=== PATIENT | female | born 1970 | race Caucasian/White ===

== ENCOUNTER 2017-12-14 17:10 | Emergency (ER) | payer MEDICAID, SELFPAY ==
[2017-12-14 17:28] VITALS: BP 140/108; PULSE 116; RESP 18; TEMP 36.6; O2SAT 95; BMI 28.3
[2017-12-14 17:44] VITALS: BP 140/108; PULSE 118; RESP 18; TEMP 36.6; O2SAT 95; BMI 25.0
--- NOTE | 2017-12-14 17:54 | HMH.EDUTC ---
[facility] [place] Clinical Impression: Pneumonia Qualifiers: Pneumonia type: due to unspecified organism Laterality: bilateral Lung location: unspecified part of lung Qualified Code(s): J18.9 - Pneumonia, unspecified organism Disposition: Home, Self-Care Condition on Discharge: Good Prescriptions: methylPREDNISolone [Medrol] 4 mg PO DAILY 6 Days #21 tab.ds.pk Albuterol Sulfate [Proventil-HFA 90mcg/puff Inh] 2 puffs IH QIDP PRN #1 inh PRN Reason: Wheezing Azithromycin [Z-Juventino 250mg Tab] 250 mg PO UD DOSE PK #6 tab Referrals: Arline Roberts [Primary Care Provider] - Time of Disposition: 19:00 Medical Decision Making - Medical Records Medical records reviewed: Yes: I reviewed the patient's medical records. Vital Signs: 12/14/17 17:28 12/14/17 17:44 Temperature 97.8 F 97.8 F Temperature Source Oral Temporal Artery Scan Pulse Rate [Left Brachial] 116 H 118 H Respiratory Rate 18 18 Blood Pressure [Left Arm] 140/108 140/108 Blood Pressure Mean [Left Arm] 118 118 Blood Pressure Source [Left Arm] Automatic Cuff Automatic Cuff Blood Pressure Position [Left Arm] Sitting Sitting 02 Sat by Pulse Oximetry 95 95 Oxygen Delivery Method Room Air Room Air - Lab Data Lab results reviewed: Yes: I reviewed the patient's lab results. Lab Results 12/14/17 17:56: Influenza Type A Ag Negative, Influenza Type B Ag Negative 12/14/17 18:09: Urine Color Yellow, Urine Appearance Clear, Urine pH 6.0, Ur Specific [place] 1.020, Urine Protein 2+, Urine Glucose (UA) Negative, Urine Ketones Trace, Urine Blood Negative, Urine Nitrate Negative, Urine Bilirubin Negative, Urine Urobilinogen 0.2, Ur Leukocyte Esterase Negative Orders (Tests/Meds): ED MEDICATIONS Discontinued Medications Generic Name Dose Route Start Last Admin Trade Name Freq PRN Reason Stop Dose Admin Ceftriaxone Sodium 1 gm 12/14/17 18:33 12/14/17 18:50 Rocephin 1gm Vial IM 12/14/17 18:34 1 gm ONCE ONE Administration Lidocaine HCl 0 ml 12/14/17 18:33 12/14/17 18:50 Lidocaine 1% 10ml Mdv IM 12/14/17 18:34 2.1 ml ONCE ONE Administration Methylprednisolone Acetate 80 mg 12/14/17 18:33 12/14/17 18:51 Depo-Medrol 80mg/Ml Vial IM 12/14/17 18:34 80 mg ONCE ONE Administration Promethazine HCl 25 mg 12/14/17 18:33 12/14/17 18:51 Phenergan 25mg/Ml 1ml Vial IM 12/14/17 18:34 25 mg ONCE ONE Administration Sodium Chloride 25 ml 12/14/17 18:33 Sod Chloride 0.9% 25ml Bag IV 12/14/17 18:34 ONCE ONE ORDERS Category Date Time Status CXR 2 view (NOT portable) [XR chest 2V] Stat Exams 12/14/17 18:08 Taken - Radiology Data #1 Image Reviewed: Yes I reviewed the patient's radiology image ? infiltrate bibasilar - Bruno Inquiry Pt receiving controlled substance: No [facility] [place] HPI - General Stated complaint: back pain,vomiting,weakness Time Seen by Provider: 12/14/17 17:45 Mode of Arrival: Ambulatory Source of Information: Patient Limitations: No Limitations Description of Symptoms (Recalled from Triage Doc. by RN): N/V SINCE SUN, DX WITH BRONCHITIS ON SUNDAY, BODYACHES ABD BACK PAIN FROM COUGHING. FEELS LIKE THE FLU HEENT Symptoms (Recalled from RN notes): Yes Resp Symptoms (Recalled from RN notes): Yes Skin Symptoms (Recalled from RN notes): No MS Symptoms (Recalled from RN notes): No Functional Status (Recalled from RN notes): NA - History of Present Illness Provider Complaint: Patient seen by PCP on 12/12/17 for cough. Given doxycycline and Tessalon Perles. Has also had vomiting. Seen at [facility] ER yesterday. Given Phenerghan. Still coughing, feels awful, has dry heaves. No diarrhea. Denies ear pain or sore throat. Back hurts from coughing and can't get comfortable. Not sure about fever. Onset (ago): day(s) (2) Location: chest, back, abdomen Radiation: back Relieving factors: none Exacerbating factors: none Associated symptoms: cough, fever/chills, malaise, nausea/vomiting Treat
--- NOTE | 2017-12-14 17:59 | ED_ITS ---
[facility] [place] Clinical Impression: Pneumonia Qualifiers: Pneumonia type: due to unspecified organism Laterality: bilateral Lung location : unspecified part of lung Qualified Code(s): J18.9 - Pneumonia, unspecified organism Disposition: Home, Self-Care Condition on Discharge: Good Prescriptions: methylPREDNISolone [Medrol] 4 mg PO DAILY 6 Days #21 tab.ds.pk Albuterol Sulfate [Proventil-HFA 90mcg/puff Inh] 2 puffs IH QIDP PRN #1 inh PRN Reason: Wheezing Azithromycin [Z-Juventino 250mg Tab] 250 mg PO UD DOSE PK #6 tab Referrals: Arline Roberts [Primary Care Provider] - Time of Disposition: 19:00 Medical Decision Making - Medical Records Medical records reviewed: Yes: I reviewed the patient's medical records. Vital Signs: 12/14/17 17:28 12/14/17 17:44 Temperature 97.8 F 97.8 F Temperature Source Oral Temporal Artery Scan Pulse Rate [Left Brachial] 116 H 118 H Respiratory Rate 18 18 Blood Pressure [Left Arm] 140/108 140/108 Blood Pressure Mean [Left Arm] 118 118 Blood Pressure Source [Left Arm] Automatic Cuff Automatic Cuff Blood Pressure Position [Left Arm] Sitting Sitting 02 Sat by Pulse Oximetry 95 95 Oxygen Delivery Method Room Air Room Air - Lab Data Lab results reviewed: Yes: I reviewed the patient's lab results. Lab Results 12/14/17 17:56: Influenza Type A Ag Negative, Influenza Type B Ag Negative 12/14/17 18:09: Urine Color Yellow, Urine Appearance Clear, Urine pH 6.0, Ur Specific [place] 1.020, Urine Protein 2+, Urine Glucose (UA) Negative, Urine Ketones Trace, Urine Blood Negative, Urine Nitrate Negative, Urine Bilirubin Negative, Urine Urobilinogen 0.2, Ur Leukocyte Esterase Negative Orders (Tests/Meds): ED MEDICATIONS Discontinued Medications Generic Name Dose Route Start Last Admin Trade Name Freq PRN Reason Stop Dose Admin Ceftriaxone Sodium 1 gm 12/14/17 18:33 12/14/17 18:50 Rocephin 1gm Vial IM 12/14/17 18:34 1 gm ONCE ONE Administration Lidocaine HCl 0 ml 12/14/17 18:33 12/14/17 18:50 Lidocaine 1% 10ml Mdv IM 12/14/17 18:34 2.1 ml ONCE ONE Administration Methylprednisolone Acetate 80 mg 12/14/17 18:33 12/14/17 18:51 Depo-Medrol 80mg/Ml Vial IM 12/14/17 18:34 80 mg ONCE ONE Administration Promethazine HCl 25 mg 12/14/17 18:33 12/14/17 18:51 Phenergan 25mg/Ml 1ml Vial IM 12/14/17 18:34 25 mg ONCE ONE Administration Sodium Chloride 25 ml 12/14/17 18:33 Sod Chloride 0.9% 25ml Bag IV 12/14/17 18:34 ONCE ONE ORDERS Category Date Time Status CXR 2 view (NOT portable) [XR chest 2V] Stat Exams 12/14/17 18:08 Taken - Radiology Data #1 Image Reviewed: Yes I reviewed the patient's radiology image ? infiltrate bibasilar - Bruno Inquiry Pt receiving controlled substance: No [facility] [place] - General Stated complaint: back pain,vomiting,weakness Time Seen by Provider: 12/14/17 17:45 Mode of Arrival: Ambulatory Source of Information: Patient Limitations: No Limitations Description of Symptoms (Recalled from Triage Doc. by RN): N/V SINCE SUN, DX WITH BRONCHITIS ON SUNDAY, BODYACHES ABD BACK PAIN FROM COUGHING. FEELS LIKE THE FLU HEENT Symptoms (Recalled from RN notes): Yes Resp Symptoms (Recalled from RN notes): Yes Skin Symptoms (Recalled f
[2017-12-14 18:06] LABS: UTC Influenza A Antigen Negative (Negative); UTC Influenza B Antigen Negative (Negative)
--- NOTE | 2017-12-14 18:08 | XR_ITS ---
XR chest 2V HISTORY: Tobacco use, smoker, vomiting ITS.REASON: SICK ORDERING PHYSICIAN: MARJORIE Aragon PATIENT AGE: 47 years COMPARISON: None available FINDINGS: The cardiomediastinal silhouette and pulmonary vascularity are within normal limits. There are atelectatic or fibrotic changes in the left lung base. There is mild coarsening of the bronchovascular markings which may be related to smoking-related lung disease. Calcified granuloma is present in the left lower lobe. No acute bony abnormalities. IMPRESSION: Left lower lobe atelectasis or fibrosis with coarsening of the bronchovascular markings
[2017-12-14 18:40] LABS: Apearance,Urine Clear (Clear); Color,Urine Yellow (Yellow)
[2017-12-14 18:41] LABS: Bilirubin,Urine Negative (Negative); Blood, Urine Negative (Negative); Glucose,Urine (UA) Negative (Negative); Ketones,Urine TRACE (Negative); Protein,Urine 2+ (Negative)
[2017-12-14 18:42] LABS: UTC Leukocyte Esterase,Urine Negative (Negative); UTC Nitrate,Urine Negative (Negative); Urobilinogen,Urine 0.2 EU/dl (0.2)
== END 2017-12-14 19:01 | disposition home or self-care (01) ==
LOC: ER 17:40 → UTC 17:41
PROVIDERS: Emergency Provider Physician Assistant; PCP Physician Assistant
DX: J18.9 Pneumonia, unspecified organism (principal); Z79.899 Other long term (current) drug therapy
CPT/HCPCS: 71046; 81003; 87804; 96372; 99202; J1040

== ENCOUNTER → 2018-12-03 11:46 | Outpatient (CLI) | payer MEDICAID, SELFPAY ==
[2018-12-03 11:51] LABS: Adenovirus,PCR Not Detected (NotDetected); Bordetella Pertussis Not Detected (NotDetected); Chlamydophila Pneumoniae, PCR Not Detected (NotDetected); Coronavirus 229E Not Detected (NotDetected); Coronavirus NL63 Not Detected (NotDetected); Coronavirus OC43 Not Detected (NotDetected); Coronovirus HKU1,PCR Not Detected (NotDetected); Human Metapneumovirus Not Detected (NotDetected); Influenza A, PCR Not Detected (NotDetected); Influenza AH1, 2009 Not Detected (NotDetected); Influenza AH1, PCR Not Detected (NotDetected); Influenza AH3,PCR Not Detected (NotDetected); Influenza B, PCR Not Detected (NotDetected); Mycoplasma Pneumoniae, PCR Not Detected (NotDetected); Parainfluenza 1, PCR Not Detected (NotDetected); Parainfluenza 2, PCR Not Detected (NotDetected); Parainfluenza 3, PCR Not Detected (NotDetected); Parainfluenza 4, PCR Not Detected (NotDetected); Respiratory Syncytial Virus Not Detected (NotDetected); Rhinovirus/Enterovirus Not Detected (NotDetected)
== END ==
PROVIDERS: PCP Nurse Practitioner Family; Visit Provider Nurse Practitioner Family
DX: R53.81 Other malaise (principal); R52 Pain, unspecified
CPT/HCPCS: 87486; 87581; 87633; 87798

== ENCOUNTER 2019-01-13 15:00 | Outpatient (RCR) | payer MEDICAID, SELFPAY | END 2019-01-20 15:29 | disposition home or self-care (01) | LOC: PT.CARL 15:00 | PROVIDERS: Visit Provider Physician Assistant | DX: M54.5 Low back pain (principal) | CPT/HCPCS: 97010; 97014; 97110; 97140; 97163; G0283 ==

== ENCOUNTER 2020-10-04 09:48 | Emergency (ER) | payer MEDICAID, SELFPAY ==
[2020-10-04 10:15] VITALS: BP 114/58; PULSE 85; RESP 16; TEMP 36.8; O2SAT 94; BMI 31.7
--- NOTE | 2020-10-04 10:22 | XR_ITS ---
PROCEDURE: XR CHEST 2V CLINICAL HISTORY: SHORT OF BREATH COMPARISON: CR CXR2V XR chest 2V from 12/14/2017 FINDINGS: The cardiomediastinal silhouette and pulmonary vascularity are within normal limits. The lungs are clear without infiltrates, suspicious nodules, or pleural effusions. There is a calcified granuloma in the left lower lobe. IMPRESSION: No acute findings. Dictated by: Albert Higgins MD 10/04/2020 11:23 Albert Higgins MD in [place] 10/04/2020 11:23
--- NOTE | 2020-10-04 10:42 | HMH.EDUTC ---
[facility] [place] Impression: Sinusitis Qualifiers: Sinusitis location: unspecified location Chronicity: unspecified Qualified Code(s): J32.9 - Chronic sinusitis, unspecified Disposition: Home, Self-Care Condition on Discharge: Good Instructions: Sinusitis, Sinus Headache, Diarrhea, DI for Sinusitis Additional Instructions: *Monitor Temp, Over the counter Motrin or Tylenol as directed/as needed Tylenol every 4 hours and Motrin every 6 hours (as long as your family doctor has told you that you can take it) for fever or pain. and straight to ER if unable to lower temp less than 101.0 after medication given *Warm salt water gargles may help to soothe the throat *Throat Lozenges *Warm fluids like tea with honey may help to soothe the throat *Sleep elevated *Humidifier/Vaporizer *Take medication as prescribed Return if needed Follow up with Family Doctor if needed Straight to ER if any life threatening symptoms Follow up IMMEDIATELY for new or worsening symptoms or no Noticeable improvement over the next 48-72 hours. 911 for difficulty breathing or swallowing ? You was given an outpatient order for diarrhea panel, please collect specimen and bring back to outpatient lab then [facility] or follow up with family doctor for results ? Follow up with family doctor in the next 48-72 hours if no improvement or any worsening of symptoms You was tested for today for COVID19 your test result should be back later this evening, you may call back later this evening to see if your test results are back and the result [phone] You was given a handout with instructions for Self Quarantine and Self isolation for while you wait on test results and what to do if they are positive Prescriptions: Amoxicillin/Potassium Clav [Augmentin 875-125 Tablet] 1 tab PO Q12H 7 Days #14 tab Transmission Status: Received by [facility] Referrals: Shanice Acevedo APRN [Primary Care Provider] - As needed Time of Disposition: 12:21 Medical Decision Making - Bruno Inquiry Pt receiving controlled substance: No Bruno was queried for this patient: No Vital Signs: 10/04/20 10:15 10/04/20 12:26 Temperature 98.2 F 98.2 F Temperature Source Oral Pulse Rate 85 Pulse Rate [Right Brachial] 85 Respiratory Rate 16 16 Blood Pressure 114/58 L Blood Pressure [Right Arm] 114/58 L Blood Pressure Mean [Right Arm] 76 Blood Pressure Source [Right Arm] Automatic Cuff Blood Pressure Position [Right Arm] Sitting 02 Sat by Pulse Oximetry 94 L Oxygen Delivery Method Room Air - Lab Data Lab Results 10/04/20 10:54: WBC 11.4 H, RBC 4.75, Hgb 13.8, Hct 41.5, MCV 87.3, MCH 29.1, MCHC 33.4, RDW 13.5, Plt Count 210, MPV 7.8, Neut % (Auto) 69.5, Lymph % (Auto) 20.9, [place] % (Auto) 4.9, Eos % (Auto) 3.9, Baso % (Auto) 0.8, Neut # (Auto) 7.9 H, Lymph # (Auto) 2.4, [place] # (Auto) 0.6, Eos # (Auto) 0.5 H, Baso # (Auto) 0.1 10/04/20 12:02: Urine Color Yellow, Urine Appearance Clear, Urine pH 5.0, Ur Specific [place] <= 1.005, Urine Protein Negative, Urine Glucose (UA) Negative, Urine Ketones Negative, Urine Blood Negative, Urine Nitrate Negative, Urine Bilirubin Negative, Urine Urobilinogen 0.2, Ur Leukocyte Esterase Negative Result diagrams: 10/04/20 10:54 Orders (Tests/Meds): ED MEDICATIONS Discontinued Medications Generic Name Dose Route Start Last Admin Trade Name Freq PRN Reason Stop Dose Admin Sodium Chloride 1,000 mls @ 999 mls/hr 10/04/20 11:15 10/04/20 11:02 Sod Chlor 0.9% 1000ml Bag IV 10/04/20 12:15 999 mls/hr .Q1H1M [facility] Administration - Radiology Data #1 Image(s): Chest Image Reviewed: Yes I have reviewed radiologist's interpretation Preliminary Findings: Normal/NAD Medical Decision Narrative: Patient reports that she is feeling better after fluids, fluids still infusing will monitor No diarrhea since arrival, discussed lab work with patient and discussed transfer to the Ed for further evaluation
[2020-10-04 11:06] LABS: Basophils # 0.1 K/mm3 (0-0.2); Basophils % 0.8 % (0.1-2.0); Eosinophils # 0.5 K/mm3 (0.0-0.4); Eosinophils % 3.9 % (0.1-12.0); Hematocrit 41.5 % (37.0-47.0); Hemoglobin 13.8 g/dL (12.2-16.2); Lymphocytes # 2.4 K/mm3 (0.7-4.5); Lymphocytes % 20.9 % (10-50); Mean Corpuscular HGB Conc 33.4 g/dL (31.8-35.4); Mean Corpuscular Hemoglobin 29.1 pg (27.0-31.2); Mean Corpuscular Volume 87.3 fl (81-99); Mean Platelet Volume 7.8 fl (7.4-10.4); Monocytes # 0.6 K/mm3 (0.1-1.0); Monocytes % 4.9 % (1.7-9.3); Neutrophils # 7.9 K/mm3 (1.8-7.8); Neutrophils % 69.5 % (37.0-80.0); Platelet Count 210 K/mm3 (142-424); Red Blood Count 4.75 M/mm3 (4.20-5.40); Red Cell Distribution Width 13.5 % (11.5-17.5); White Blood Count 11.4 K/mm3 (4.8-10.8)
[2020-10-04 12:02] LABS: Apearance,Urine Clear (Clear); Color,Urine Yellow (Yellow)
[2020-10-04 12:03] LABS: Bilirubin,Urine Negative (Negative); Blood, Urine Negative (Negative); Glucose,Urine (UA) Negative (Negative); Ketones,Urine Negative (Negative); Protein,Urine Negative (Negative); Specific Gravity, Urine <= 1.005 (1.005-1.030); UTC Leukocyte Esterase,Urine Negative (Negative); UTC Nitrate,Urine Negative (Negative); Urobilinogen,Urine 0.2 EU/dl (0.2)
[2020-10-04 12:26] VITALS: BP 114/58; PULSE 85; RESP 16; TEMP 36.8; O2SAT 98
== END 2020-10-04 12:31 | disposition home or self-care (01) ==
LOC: UTC 09:53
PROVIDERS: Emergency Provider Nurse Practitioner; PCP Nurse Practitioner Family
DX: Z20.828 Contact with and (suspected) exposure to other viral communicable diseases (principal); J32.9 Chronic sinusitis, unspecified
CPT/HCPCS: 71046; 81003; 85025; 96365; 99203; U0003

== ENCOUNTER → 2020-12-09 10:54 | Outpatient (POV) | payer MEDICAID, SELFPAY ==
[2020-12-09 11:29] VITALS: BP 142/78; PULSE 74; RESP 18; TEMP 36.6; O2SAT 98; BMI 33.2
--- NOTE | 2020-12-16 17:35 | HMH.PMCON ---
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 I do believe given her symptomology that this will benefit her. She has a positive Cheng test SI joint compression test Vel's test and distraction test bilaterally. I will follow-up with her after her injection reassess her symptoms at that time she has been instructed to call the office if she has any issues prior to her next appointment. Dr. Sethi has reviewed this note and agrees with this plan of care. This note was dictated using voice recognition software and may contain errors or omissions HPI - Data of Consult Consult date: 12/09/20 Requesting Physician: Tona Villegas APRN Primary Care Provider: Shanice Acevedo APRN - Consult Narrative Reason for consult: Back pain History of present illness: Ms. Rolon is a 50 year old female who presents today for consultation in regards to her low back pain. She is seeing pain management in the past and had epidurals with no success. Patient wants to talk about her options. Most of her pack pain is quite low. She does not have radiation into her bilateral lower feet. Patient is extremely tender over her SI joints. She has a positive Cheng test SI joint compression test Vel's test. She is tried physical therapy with no relief, she is tried and failed Lortab, gabapentin, trazodone, diclofenac. She is also failed epidural injections. At we discussed SI joint injection she would like to move forward with this to I do believe that this potentially could help her. If not I do believe we have other options that could benefit her. CC: Tona Villegas APRN [facility] History I have reviewed the patient's past medical history: Yes Medical History: Reports:: Hyperlipidemia, Hypertension Denies:: Cancer, Diabetes Mellitus Type 1, Diabetes Mellitus Type 2, MRSA *Have you ever received a pneumonia vaccine?: Yes *Have you received a flu vaccine this season?: Yes Other Medical History: Reports: Arthritis Amputation: No Fractures: No - *Social History Smoking Status: Current every day smoker Tobacco Type: cigarettes # Packs/Day (cigarettes): 1 Alcohol Intake: never *Occupational Status:: other Housing: house Household Members: other *Travel in the last 8 weeks: None Family Hx:: Unable to obtain Review of Systems - Review of Systems ROS General: no recent weight change, no fever, no sleep disturbances Respiratory: no cough, no shortness of air, no recurring pulmonary infections Cardiovascular/Peripheral Vascular: No chest pain, No palpitations, no edema, no shortness of breath. Gastrointestinal: no new onset incontinence, normal bowel movements reported Genitourinary: no new onset incontinence Musculoskeletal: Back pain, SI joint pain, hip pain Psychiatric: normal mood/ affect Neurological: [denies new onset weakness in extremities], [denies new onset balance issues] Meds Home Medications Medication Instructions Recorded Confirmed Type Amoxicillin/Potassium Clav 1 tab PO Q12H 7 Days #14 tab 10/04/20 Rx [Augmentin 875-125 Tablet] Atorvastatin Calcium [Lipitor 20mg 20 mg PO HS 10/04/20 10/04/20 History Tablet*] Diclofenac Sodium [Diclofenac 75mg 75 mg PO BID 10/04/20 10/04/20 History Tab] Famotidine [Acid Controller] 20 mg PO DAILY 10/04/20 10/04/20 History Montelukast Sodium [Singulair 10mg 10 mg PO PM 10/04/20 10/04/20 History tablet] PARoxetine HCL [Paxil] 40 mg PO BID 10/04/20 10/04/20 History Pantoprazole Sodium [Protonix 40mg 40 mg PO DAILY 10/04/20 10/04/20 History tablet] Scoobyti
== END ==
PROVIDERS: PCP Nurse Practitioner Family; Visit Provider Clinical Nurse Specialist Family Health
DX: M46.1 Sacroiliitis, not elsewhere classified (principal); M47.816 Spondylosis without myelopathy or radiculopathy, lumbar region
CPT/HCPCS: 99202; G0463

== ENCOUNTER → 2020-12-20 11:19 | Day surgery (SDC) | payer MEDICAID, SELFPAY ==
[2020-12-20 11:47] VITALS: BP 149/76; PULSE 95; RESP 18; TEMP 36.1; O2SAT 95; BMI 32.1
[2020-12-20 12:03] VITALS: PULSE 85; RESP 20; O2SAT 96
[2020-12-20 12:04] VITALS: BP 165/98; PULSE 85; RESP 20; O2SAT 96
--- NOTE | 2020-12-20 12:09 | HMH.PMPROC ---
- Procedure Date: 12/20/20 Time: 12:09 Anesthesiologist:: Tona Villegas APRN Complications:: None Pre-procedure Diagnosis:: Sacroiliitis Post-procedure Diagnosis:: Same Indications for Procedure:: Ms. Rolon is a 50 year old female who presents today for consultation in regards to her low back pain. She is seeing pain management in the past and had epidurals with no success. Most of her back pain is quite low. She does not have radiation into her bilateral lower feet. Patient is extremely tender over her SI joints. She has a positive Cheng test SI joint compression test Vel's test. She is tried physical therapy with no relief, she is tried and failed Lortab, gabapentin, trazodone, diclofenac. She is also failed epidural injections. At we discussed SI joint injection she would like to move forward with this today Procedure Details:: Informed consent was obtained and the risks and benefits of the procedure were explained to the patient. Patient was taken to the procedure room. Patient was placed prone on the procedure table. The left hip was prepped using ChloraPrep as a cleansing solution. The skin and subcutaneous tissues were anesthetized using lidocaine. Using fluoroscopic guidance I placed a 22-gauge spinal needle into the inferior aspect of the left SI joint. After this I injected 5 mL bupivacaine 0.25% and Depo-Medrol 40 mg into the left SI joint. This was then repeated on the right side. The patient tolerated the procedure well with no complication. Plan and Disposition:: I will see the patient back in several weeks reassess his symptoms at that time has been instructed to call the office if she has any issues prior to next appointment. Dr. Sethi has reviewed this note and agrees with this plan of care. This note was dictated using voice recognition software and may contain errors or omissions
== END ==
PROVIDERS: PCP Nurse Practitioner Family; Visit Provider Clinical Nurse Specialist Family Health
DX: M46.1 Sacroiliitis, not elsewhere classified (principal); Z88.2 Allergy status to sulfonamides; Z72.0 Tobacco use; E78.5 Hyperlipidemia, unspecified; K21.9 Gastro-esophageal reflux disease without esophagitis; F41.9 Anxiety disorder, unspecified; F32.9 Major depressive disorder, single episode, unspecified; E07.9 Disorder of thyroid, unspecified
CPT/HCPCS: 27096; G0260; J1030; Q9966

== ENCOUNTER → 2021-01-13 13:30 | Outpatient (POV) | payer MEDICAID, SELFPAY ==
--- NOTE | 2021-01-13 14:05 | HMH.PAINSOAP ---
[facility] Pain Management SOAP Note Subjective:: Patient is a pleasant 51-year-old white female who presents today for follow-up after SI joint injections. Patient did not get any relief from this. She is failed multiple injective therapies including epidural injections, facet joint injections. Patient is failed medication management including Lortab and gabapentin trazodone and diclofenac. She is had over 6 months of conservative therapy with no relief. Most of her pain is in her low back and bilateral lower extremities. We discussed both neurostimulator and intrathecal therapy. She rates her pain today a 6 out of 10. Patient and I discussed psychological evaluation she would like to proceed with this. She is not on any anticoagulation therapy. ROS General: no recent weight change, no fever, no sleep disturbances Respiratory: no cough, no shortness of air, no recurring pulmonary infections Cardiovascular/Peripheral Vascular: No chest pain, No palpitations, no edema, no shortness of breath. Gastrointestinal: no new onset incontinence, normal bowel movements reported Genitourinary: no new onset incontinence Musculoskeletal: Back pain, leg pain Psychiatric: normal mood/ affect Neurological: [denies new onset weakness in extremities], [denies new onset balance issues] Objective:: Physical Exam General: Alert and oriented x3, no acute distress, pleasant and cooperative, [on room air] Lungs: Resps E/U, Symmetrical chest expansion, Eyes: PERRL Musculoskeletal: Flexion and extension of lumbar spine somewhat guarded secondary to pain, deep tendon reflexes normal, strength in upper and lower extremities [5/5], antalgic gait noted Neurological: speech clear, tower helper equal, no gross sensory deficits Assessment:: Degenerative disc disease lumbar spine lumbar radiculopathy, sacroiliitis, back pain Plan:: The patient for psychological evaluation to determine if she is a candidate for intrathecal therapy or neuro stimulation. I will follow-up with her after her psychological evaluation. We will start her on gabapentin 300 mg 1 p.o. 4 times daily. I will follow-up with her after her psychological evaluation she has been instructed to call the office if she has any issues prior to her next appointment. Her Bruno was reviewed through [employer]. Dr. Sethi has reviewed this note and agrees with this plan of care. This note was dictated using voice recognition software and may contain errors or omissions [facility] History I have reviewed the patient's past medical history: Yes Medical History: Reports:: Hyperlipidemia, Hypertension Denies:: Cancer, Diabetes Mellitus Type 1, Diabetes Mellitus Type 2, MRSA, Seizures *Have you ever received a pneumonia vaccine?: No *Have you received a flu vaccine this season?: No Other Medical History: Reports: Arthritis, Thyroid Disease Other Surgeries: Yes: Hysterectomy-Total, Sinus Surgery, ThyroidectomyComment Only: Other (cone biopsy) Amputation: No Fractures: No - *Social History Smoking Status: Current every day smoker Tobacco Type: cigarettes # Packs/Day (cigarettes): 1 Alcohol Intake: never *Occupational Status:: other Housing: house Household Members: other *Travel in the last 8 weeks: None Family Hx:: Unable to obtain
[2021-01-13 14:54] VITALS: BP 147/77; PULSE 68; RESP 18; O2SAT 99; BMI 32.5
== END ==
PROVIDERS: PCP Nurse Practitioner Family; Visit Provider Clinical Nurse Specialist Family Health
DX: M51.16 Intervertebral disc disorders with radiculopathy, lumbar region (principal); M46.1 Sacroiliitis, not elsewhere classified
CPT/HCPCS: 99212; G0463

== ENCOUNTER → 2021-02-07 10:48 | Outpatient (POV) | payer MEDICAID, SELFPAY ==
[2021-02-07 11:05] VITALS: BP 138/71; PULSE 65; RESP 18; O2SAT 98; BMI 36.1
--- NOTE | 2021-02-07 11:13 | HMH.PAINSOAP ---
[facility] Pain Management SOAP Note Subjective:: Patient is a pleasant 51-year-old white female who presents today for follow-up. Patient had a psychological evaluation for intrathecal therapy. She was deemed a good candidate. Patient rates her pain today a 6 out of 10. Mostly in her low back and legs. She has failed treatment including epidural injections, facet joint injections, medication management over the last 6 months. Patient and I had a long discussion about realistic goals and expectations along with the trial and implantation. Patient understands. And would like to move forward. ROS General: no recent weight change, no fever, no sleep disturbances Respiratory: no cough, no shortness of air, no recurring pulmonary infections Cardiovascular/Peripheral Vascular: No chest pain, No palpitations, no edema, no shortness of breath. Gastrointestinal: no new onset incontinence, normal bowel movements reported Genitourinary: no new onset incontinence Musculoskeletal: Back pain, leg pain Psychiatric: normal mood/ affect Neurological: [denies new onset weakness in extremities], [denies new onset balance issues] Objective:: Physical Exam General: Alert and oriented x3, no acute distress, pleasant and cooperative, [on room air] Lungs: Resps E/U, Symmetrical chest expansion, Eyes: PERRL Musculoskeletal: Flexion and extension of lumbar spine somewhat guarded secondary to pain, deep tendon reflexes normal, strength in upper and lower extremities [5/5], [abnormal gait noted] Neurological: speech clear, access coordinator equal, no gross sensory deficits Assessment:: Degenerative disc disease lumbar spine lumbar radiculopathy low back pain Plan:: We will set the patient up for intrathecal pain pump trial. She is not on any anticoagulation therapy. I will follow-up with her after this reassess her symptoms at that time. She has been instructed to call the office if she has any issues prior to her next appointment. Dr. Sethi has reviewed this note and agrees with this plan of care. This note was dictated using voice recognition software and may contain errors or omissions [facility] History I have reviewed the patient's past medical history: Yes Medical History: Reports:: Hyperlipidemia, Hypertension Denies:: Cancer, Diabetes Mellitus Type 1, Diabetes Mellitus Type 2, MRSA, Seizures *Have you ever received a pneumonia vaccine?: Yes *Have you received a flu vaccine this season?: Yes Other Medical History: Reports: Arthritis, Thyroid Disease Other Surgeries: Yes: Hysterectomy-Total, Sinus Surgery, ThyroidectomyComment Only: Other (cone biopsy) Amputation: No Fractures: No - *Social History Smoking Status: Current every day smoker Tobacco Type: cigarettes # Packs/Day (cigarettes): 1 Alcohol Intake: never *Occupational Status:: other Housing: house Household Members: other *Travel in the last 8 weeks: None Family Hx:: Unable to obtain
== END ==
PROVIDERS: PCP Nurse Practitioner Family; Visit Provider Clinical Nurse Specialist Family Health
DX: M51.16 Intervertebral disc disorders with radiculopathy, lumbar region (principal)
CPT/HCPCS: 99212; G0463

== ENCOUNTER → 2021-02-11 08:12 | Day surgery (SDC) | payer MEDICAID, SELFPAY ==
[2021-02-11] VITALS (8 sets, daily range): BP systolic 128–165; BP diastolic 69–81; PULSE 65–78; RESP 18–20; TEMP 36.2; O2SAT 95–99
--- NOTE | 2021-02-11 09:52 | HMH.PMPROC ---
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 She has increasing pain in her low back and legs. She has failed all previous conservative therapy including injections, oral medications and physical therapy. She is not a surgical candidate. She presents for intrathecal pump trial today. She is only on gabapentin she is not on any oral narcotics. Procedure Details:: Pain pump trial Pain pump trial Informed consent was obtained and the risk and benefits of the procedure was explained to the patient. The patient was taken to the procedure room and placed prone on the procedure table. Patient was prepped and draped in sterile fashion. C-arm fluoroscopy was used to view the lumbar spine. The skin and subcutaneous tissues were anesthetized using lidocaine. I placed a 18-gauge spinal needle into the L4-5 interspace and advanced until clear CSF was obtained. After this intrathecal catheter was inserted and advanced very easily to the L1 vertebral body. The needle was withdrawn. We were able to freely withdraw clear CSF through the catheter. We then injected intrathecal fentanyl single shot bolus of 25 mcg followed by saline and followed by the previous CSF that was withdrawn. The needle and catheter were then removed and a Band-Aid was placed. Patient tolerated the procedure well with no complications. We reevaluated the patient after 30 minutes to 1 hour. She was also reassessed by physical therapy. Patient had 80 to 90% relief in her pain symptoms. She wants to proceed with permanent placement. We will plan on permanent placement of intrathecal pain pump with morphine 5 mg/mL to start at 0.25 mg/day. Catheter tip will be at the L1 vertebral body. Plan and Disposition:: We will plan on permanent placement of intrathecal morphine pain pump. This will be with intrathecal morphine 5 mg/mL to start at 0.25 mg/day. Catheter tip will be at the L1 vertebral body. We will also have her consult with Dr. Britt the same day for evaluation of reservoir placement.
--- NOTE | 2021-02-11 11:35 | PC.NURSE ---
0900-PT at bedside for assessment 0955-pt returned to bay, ambulatory, accompanied by nursing staff. pt assisted to chair. family at bedside. VSS, no c/o pain. pt does c/o itching but declined PRN medication. 1010-pt resting in chair. family present. VSS, no c/o pain. eating sandwich and chips. tolerating PO fluids. no needs or concerns at this time 1025-pt resting in chair, family present. VSS, no c/o pain. reports itching, denies need for PRN medication. no needs or concerns at this time 1040-pt resting in chair, family present. VSS, no c/o pain. pt inquiring about when she can be discharged. educated pt that she needed to be monitored for a while longer, understanding verbalized. no other needs or concerns verbalized. 1048-PT at bedside for assessment 1050-pt declined to ambulate at this time. 1000-MD at bedside 1103-IV discontinued, site wnl. pt able to stand and ambulate with steady gait. Discussed process for surgical implantation of pain pump. questions encouraged and answered. 1110-pt discharged at this time
== END ==
PROVIDERS: PCP Nurse Practitioner Family; Visit Provider Anesthesiology
DX: M51.16 Intervertebral disc disorders with radiculopathy, lumbar region (principal); K76.0 Fatty (change of) liver, not elsewhere classified; E89.0 Postprocedural hypothyroidism; E78.5 Hyperlipidemia, unspecified; J44.9 Chronic obstructive pulmonary disease, unspecified; F41.9 Anxiety disorder, unspecified; F32.9 Major depressive disorder, single episode, unspecified; Z72.0 Tobacco use; Z87.410 Personal history of cervical dysplasia; Z88.2 Allergy status to sulfonamides; Z79.890 Hormone replacement therapy; Z79.899 Other long term (current) drug therapy
CPT/HCPCS: 62323; 96365

== ENCOUNTER 2021-02-27 09:48 | Emergency (ER) | payer MEDICAID, SELFPAY ==
[2021-02-27 09:48] VITALS: BP 169/89; PULSE 87; RESP 19; TEMP 36.8; O2SAT 98; BMI 32.1
--- NOTE | 2021-02-27 10:07 | HMH.EDUTC ---
[facility] [place] Clinical Impression: Sinusitis Qualifiers: Sinusitis location: unspecified location Chronicity: unspecified Qualified Code(s): J32.9 - Chronic sinusitis, unspecified Disposition: Home, Self-Care Condition on Discharge: Good Instructions: Sinusitis, DI for Sinusitis Additional Instructions: *Monitor Temp, Over the counter Motrin or Tylenol as directed/as needed Tylenol every 4 hours and Motrin every 6 hours (as long as your family doctor has told you that you can take it) for fever or pain. and straight to ER if unable to lower temp less than 101.0 after medication given *Warm salt water gargles may help to soothe the throat *Throat Lozenges *Warm fluids like tea with honey may help to soothe the throat *Sleep elevated *Humidifier/Vaporizer *Flonase 2 sprays in each nostril daily but be aware that it may take 2-3 days before you notice improvement Start antibiotic. Sinus infections may take 2-3 days to notice much improvement so be sure to use conservative measures as discussed for symptoms Lots of Fluids Augmentin can cause GI effects. Probiotics may help to prevent these symptoms or eating yogurt Follow up with family doctor if no improvement or any worsening of symptoms Follow up IMMEDIATELY for new or worsening symptoms or no Noticeable improvement over the next 48-72 hours. 911 for difficulty breathing or swallowing Prescriptions: Amoxicillin/Potassium Clav [Augmentin 875-125 Tablet] 1 tab PO Q12H 7 Days #14 tab Prescription Printed Fluticasone Propionate [Flonase 50mcg nasal spray 16gm] 1 spr NS DAILY #1 bottle Prescription Printed Referrals: Shanice Acevedo APRN [Primary Care Provider] - As needed Time of Disposition: 10:46 Medical Decision Making - Bruno Inquiry Pt receiving controlled substance: No Bruno was queried for this patient: No Vital Signs: 02/27/21 09:48 02/27/21 10:49 Temperature 98.2 F 98.2 F Temperature Source Oral Oral Pulse Rate 87 Pulse Rate [Right Brachial] 87 Respiratory Rate 19 19 Blood Pressure 168/89 H Blood Pressure [Right Arm] 169/89 H Blood Pressure Mean [Right Arm] 115 Blood Pressure Source Automatic Cuff Blood Pressure Source [Right Arm] Automatic Cuff Blood Pressure Position Sitting Blood Pressure Position [Right Arm] Sitting 02 Sat by Pulse Oximetry 98 Oxygen Delivery Method Room Air Room Air Orders (Tests/Meds): ORDERS Category Date Time Status Covid-19 Nasal PCR ([facility]) Routine Lab 02/27/21 10:10 [place] [facility] [place] - General Stated complaint: headache, eys, neck pain, nose pain Time Seen by Provider: 02/27/21 10:07 Mode of Arrival: Ambulatory Source of Information: Patient Limitations: No Limitations Description of Symptoms (Recalled from Triage Doc. by RN): Sinus pain and pressure with body aches HEENT Symptoms (Recalled from RN notes): Yes Resp Symptoms (Recalled from RN notes): No Skin Symptoms (Recalled from RN notes): No MS Symptoms (Recalled from RN notes): No Functional Status (Recalled from RN notes): N/A - History of Present Illness Provider Complaint: Patient states that she has been having sinus problems for a couple of weeks but for the last several days she has been having sinus headache, pain and pressure in her sinuses and burning like pain at times in her nose Like it is raw and irritated States that she took some over the counter Motrin for her headache and tylenol sinus medication but it hasnt helped with her sinus pain. States that pressure like pain has continued to get worse. States that she is also feeling achy all over States that she is unsure if she has been exposed to anyone with COVID or not - Related Data Home Medications Medication Instructions Recorded Confirmed Atorvastatin Calcium [Lipitor 20mg 20 mg PO HS 10/04/20 02/27/21 Tablet*] Diclofenac Sodium [Diclofenac 75mg 75 mg PO BID 10/04/20 02/27/21 Tab] Famotidine [Acid Controller] 20 mg PO DAILY 10/04/20 02/27/21 [place]
[2021-02-27 10:49] VITALS: BP 168/89; PULSE 87; RESP 19; TEMP 36.8; O2SAT 98
== END 2021-02-27 10:28 | disposition home or self-care (01) ==
PROVIDERS: Emergency Provider Nurse Practitioner; PCP Nurse Practitioner Family
DX: Z20.822 Contact with and (suspected) exposure to COVID-19 (principal); J32.9 Chronic sinusitis, unspecified; E78.5 Hyperlipidemia, unspecified; I10 Essential (primary) hypertension; F17.210 Nicotine dependence, cigarettes, uncomplicated; Z79.899 Other long term (current) drug therapy
CPT/HCPCS: 99202; G0463; U0003

== ENCOUNTER → 2021-03-16 08:47 | Day surgery (SDC) | payer MEDICAID, SELFPAY ==
[2021-03-15 09:51] VITALS: BMI 32.1
[2021-03-16 09:49] VITALS: BP 138/69; PULSE 73; RESP 18; TEMP 36.3; O2SAT 96
[2021-03-16 10:02] LABS: Basophils # 0.1 K/mm3 (0-0.2); Basophils % 1.2 % (0.1-2.0); Eosinophils # 0.2 K/mm3 (0.0-0.4); Eosinophils % 1.9 % (0.1-12.0); Hematocrit 40.7 % (37.0-47.0); Hemoglobin 13.5 g/dL (12.2-16.2); Lymphocytes # 2.6 K/mm3 (0.7-4.5); Lymphocytes % 29.7 % (10-50); Mean Corpuscular HGB Conc 33.2 g/dL (31.8-35.4); Mean Corpuscular Hemoglobin 29.4 pg (27.0-31.2); Mean Corpuscular Volume 88.4 fl (81-99); Mean Platelet Volume 7.6 fl (7.4-10.4); Monocytes # 0.5 K/mm3 (0.1-1.0); Monocytes % 6.1 % (1.7-9.3); Neutrophils # 5.4 K/mm3 (1.8-7.8); Platelet Count 202 K/mm3 (142-424); Red Blood Count 4.61 M/mm3 (4.20-5.40); Red Cell Distribution Width 13.5 % (11.5-17.5); White Blood Count 8.8 K/mm3 (4.8-10.8)
[2021-03-16 10:05] LABS: Chloride 105 mmol/L (98-107)
[2021-03-16 10:06] LABS: Potassium 4.4 mmoL/L (3.5-5.1); Sodium 140 mmol/L (136-145)
[2021-03-16 10:08] LABS: Blood Urea Nitrogen 15 mg/dl (7-17); Creatinine Clearance Estimated 100 mL/min (50-200); Estimated Glomerular Filt Rate 75 ml/min (>60); GFR (African American) 91 ML/MIN (>60)
[2021-03-16 10:08] LABS: Benzodiazepines Screen,Urine Negative ng/ml (<200)
[2021-03-16 10:09] LABS: Amphetamine/Metha Screen,Urine Negative ng/ml (<1000)
[2021-03-16 10:09] LABS: Anion Gap 12.4 mEq/L (5-15); Carbon Dioxide 27 mmol/L (22.0-30.0)
[2021-03-16 10:10] LABS: Barbiturates Screen,Urine Negative ng/ml (<200)
[2021-03-16 10:11] LABS: Cannabinoid Screen,Urine Negative ng/ml (<50); Cocaine Screen,Urine Positive ng/ml (<300)
[2021-03-16 10:12] LABS: Methadone Screen,Urine Negative ng/ml (<300); Opiate Screen,Urine Negative ng/ml (<300)
[2021-03-16 10:13] LABS: Phencyclidine Screen,Urine Negative ng/ml (<25)
[2021-03-16 10:15] LABS: Calcium 9.6 mg/dl (8.4-10.2); Glucose 116 mg/dl (74-100)
[2021-03-16 10:38] LABS: Coronavirus 19 IgG Antibody Negative (Negative); Coronavirus 19 IgM Antibody Negative (Negative)
== END ==
PROVIDERS: PCP Nurse Practitioner Family; Visit Provider Anesthesiology
DX: M51.16 Intervertebral disc disorders with radiculopathy, lumbar region (principal)
CPT/HCPCS: 80048; 80305; 85025; 86328; 99212; G0463; J3370

== ENCOUNTER 2021-04-18 10:36 | Emergency (ER) | payer MEDICAID, SELFPAY ==
[2021-04-18 10:40] VITALS: BP 129/80; PULSE 84; RESP 19; TEMP 37; O2SAT 99; BMI 32.1
--- NOTE | 2021-04-18 11:16 | HMH.EDUTC ---
[facility] Disposition Clinical Impression: Diarrhea Qualifiers: Diarrhea type: unspecified type Qualified Code(s): R19.7 - Diarrhea, unspecified Disposition: Home, Self-Care Condition on Discharge: Good Instructions: Diarrhea, DI for Nausea -- Adult Additional Instructions: Drink extra fluids with and between meals. If you have difficulty drinking, try very small amounts of water or suck on ice chips. ? Avoid fruit juices, as these do not replace minerals and can actually increase diarrhea. ? Children and adults can use sports drinks to replenish electrolytes. Younger children and infants should use products formulated for children, like oral rehydration solutions. ? Eat food in small amounts and let your stomach recover. ? Get lots of rest. You may feel tired or weak. ? No greasy or fried foods for the next 24-48 hours BRAT diet Bananas Rice Apples and [place] ? Make sure to drink plenty of liquids ? Return if needed ? Straight to ER if any life threatening symptoms ? Zofran as prescribed ? Follow up with family doctor in the next 48-72 hours if no improvement or any worsening of symptoms Call back to [facility] later this evening for the results of your Diarrhea Panel Prescriptions: Vancomycin HCl [Vancocin HCl] 125 mg PO Q6H 10 Days #40 cap Transmission Status: [facility] to [facility] Ondansetron [Zofran 4mg ODT] 4 mg PO TIDP PRN #10 tab PRN Reason: Nausea Transmission Status: [facility] by [facility] Referrals: Shanice Acevedo APRN [Primary Care Provider] - As needed (Call office for appointment later this week) Time of Disposition: 13:32 Medical Decision Making - Bruno Inquiry Pt receiving controlled substance: No Bruno was queried for this patient: No Vital Signs: 04/18/21 10:40 04/18/21 13:02 Temperature 98.6 F 98.6 F Temperature Source Oral Pulse Rate 84 Pulse Rate [Right Brachial] 84 Respiratory Rate 19 19 Blood Pressure 129/80 Blood Pressure [Right Arm] 129/80 Blood Pressure Mean [Right Arm] 96 Blood Pressure Source [Right Arm] Automatic Cuff Blood Pressure Position [Right Arm] Sitting 02 Sat by Pulse Oximetry 99 Oxygen Delivery Method Room Air - Lab Data Lab Results 04/18/21 12:50: Stl Aeromonas (PCR) Not detected, Stl C. cayetanensis PCR Not detected, Stool Rotavirus (PCR) Not detected, Stl Adenov F 40/41 PCR Not detected, Stool Astrovirus (PCR) Not detected, Stool Campylobacter PCR Not detected, Stl C.difficile Tox PCR Detected A, Stool Cryptosporidium PCR Not detected, Stl E.coli Shiga Tox PCR Not detected, Stool E coli O157 PCR Not detected, Stl Enterotoxigenic E PCR Not detected, Stool EPEC (PCR) Not detected, Stool EAEC (PCR) Not detected, Stl E. histolytica PCR Not detected, Stool Giardia Lamblia PCR Not detected, Stool Salmonella PCR Not detected, Stool Sapovirus (PCR) Not detected, Stl P. shigelloides PCR Not detected, Stl Shigella/EIEC PCR Not detected, St Y.enterocolitica PCR Not detected, Stool Vibrio (PCR) Not detected, Stl Vibrio cholerae PCR Not detected, Stl Norovirus GI/GII PCR Not detected Orders (Tests/Meds): ED MEDICATIONS Discontinued Medications Generic Name Dose Route Start Last Admin Trade Name Freq PRN Reason Stop Dose Admin Sodium Chloride 1,000 mls @ 999 mls/hr 04/18/21 11:45 04/18/21 11:48 Sod Chlor 0.9% 1000ml Bag IV 04/18/21 12:45 999 mls/hr .Q1H1M LEON Administration Ondansetron HCl 4 mg 04/18/21 11:43 04/18/21 11:48 Ondansetron 4mg/2ml Vial IV 04/18/21 11:44 4 mg ONCE ONE Administration - Physician Consults Physician Consulted: Shanice Acevedo Time: 11:25 Reason -: Other Comment/Response: Spoke with patients PCP and informed her of patient complaint and discussed further treatment and lab work and agreed will given patient bolus of NS and diarrhea panel and patient to make appointment for follow up with her in the clinic later this week Patient had recently had lab work done Medical Decision Narrative: Ordered fl
[2021-04-18 13:02] VITALS: BP 129/80; PULSE 84; RESP 19; TEMP 37; O2SAT 99
[2021-04-18 13:10] LABS: Adenovirus F 40/41, stool Not Detected (NotDetected); Astrovirus Not Detected (NotDetected); Campylobacter Not Detected (NotDetected); Cryptosporidium Not Detected (NotDetected); Cyclospora Cayetanesis Not Detected (NotDetected); Entamoeba histolytica Not Detected (NotDetected); Enteroaggregative E coli Not Detected (NotDetected); Enteropathogenic E coli Not Detected (NotDetected); Enterotoxigenic E coli Not Detected (NotDetected); Giardia lamblia Not Detected (NotDetected); Norovirus Not Detected (NotDetected); Plesimonas Shigalloides, PCR Not Detected (NotDetected); Rotavirus A Not Detected (NotDetected); Salmonella, PCR Not Detected (NotDetected); Sapovirus Not Detected (NotDetected); Shiga-like toxin E coli Not Detected (NotDetected); Shigella Enterovasive E coli Not Detected (NotDetected); Vibrio Cholerae Not Detected (NotDetected); Vibrio, PCR Not Detected (NotDetected); Yersinia Entercolitica, PCR Not Detected (NotDetected)
[2021-04-18 16:29] LABS: Clostridium Difficile A/B, PCR Detected (NotDetected)
--- NOTE | 2021-04-18 18:58 | PC.NURSE ---
ATTEMPTED TO CALL PATIENT TO NOTIFY OF C. DIFF DX. NO ANSWER. VOICE MESSAGE LEFT TO HAVE PATIENT CALL BACK.
--- NOTE | 2021-04-18 19:47 | PC.NURSE ---
NOTIFIED BY CHAVEZ IN LAB OF C. DIFF RESULT AT THIS TIME
== END 2021-04-18 13:25 | disposition home or self-care (01) ==
PROVIDERS: Emergency Provider Nurse Practitioner; PCP Nurse Practitioner Family
DX: A04.72 Enterocolitis due to Clostridium difficile, not specified as recurrent (principal); I10 Essential (primary) hypertension; E78.5 Hyperlipidemia, unspecified; F17.210 Nicotine dependence, cigarettes, uncomplicated; Z88.2 Allergy status to sulfonamides; Z79.899 Other long term (current) drug therapy
CPT/HCPCS: 87507; 96365; 96375; 99202; G0463; J2405

== ENCOUNTER → 2021-05-12 14:09 | Outpatient (POV) | payer MEDICAID, SELFPAY ==
[2021-05-12 14:36] VITALS: BP 138/84; PULSE 86; RESP 18; O2SAT 98; BMI 32.1
--- NOTE | 2021-05-13 07:30 | HMH.PAINSOAP ---
[facility] Pain Management SOAP Note Subjective:: Patient is a 51-year-old white female who presents today for follow-up. She is being treated for degenerative disc disease lumbar spine with lumbar radiculopathy symptoms. Patient was scheduled to undergo implant for intrathecal pain pump, however, on the day of implant, she was positive for cocaine. Patient has been managed in our clinic in the past for low back pain as well as pain and burning in her bilateral feet and legs. She was managed with gabapentin in the past. Patient has not had relief with injective therapy in the past. She is complaining today of severe left low back pain. She says it is going into her feet causing her to have paresthesia into bilateral feet and legs. The patient I had a discussion that we will only be able to provide her with injective therapy from this point forward due to her drug screen being positive for cocaine. Patient reports that her father had recently causing her to use cocaine. She understands that this was a bridging contract and we will not be able to proceed with oral/intrathecal medication treatment. She would like to undergo injective therapy, however. She has had physical therapy in the past for greater than 6 weeks and continues with home stretching. She uses ice and heat therapies. She is requesting a podiatry consult to discuss her foot pain. Patient says that she is having difficulty standing due to the foot pain. We will refer her to Dr. Ward. Unfortunately, we will not be able to continue the patient's gabapentin. She has been advised to wean on the medication. We can, however, proceed with injective therapy for her lumbar pain. She rates her pain a 6 out of 10. Review of Systems General: No recent weight changes, no fever, no sleep disturbances Respiratory: No cough, no shortness of air, no recurring pulmonary infections Cardiovascular/peripheral vascular: No chest pain, no palpitations, no edema, no shortness of breath Gastrointestinal: No new onset incontinence, normal bowel movements reported Genitourinary: No new onset incontinence Musculoskeletal: Low back pain with radiation into bilateral feet Psychiatric: Tearful, anxious Neurological: [Denies weakness in extremities], [denies balance issues] Objective:: Physical exam General: Alert and oriented x3, no acute distress, tearful and cooperative, [on room air] Lungs: Respirations even and unlabored, symmetrical chest expansion Eyes: PERRL Musculoskeletal: Flexion and extension of [] lumbar spine somewhat guarded secondary to pain, deep tendon reflexes normal, strength in upper and lower extremities [5/5], normal gait noted Neurological: Speech clear, combat 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 We had a discussion that we will not be able to continue her gabapentin due to noncompliance. We can, however, continue with injective therapy. She has requested a podiatry consult for her bilateral foot pain. We will refer her to Dr. Ward for her neuropathy. We will schedule the patient for lumbar epidural steroid injection at L4-L5 area. She has tried and failed physical therapy in the past for greater than 6 weeks along with continued home stretching. She is not on anticoagulation therapy. We will see her back after her injection to reevaluate her symptoms. Risks and benefits of the procedure have been explained to the patient. Patient would like to proceed with the procedure. Possible side effects of corticosteroids have been discussed with the patient. Patient has been instructed to contact the clinic with any concerns before the next appointment. Dr. Sethi has reviewed this note and agrees with this plan
== END ==
PROVIDERS: PCP Nurse Practitioner Family; Visit Provider Clinical Nurse Specialist Family Health
DX: M51.16 Intervertebral disc disorders with radiculopathy, lumbar region (principal)
CPT/HCPCS: 99212; G0463

== ENCOUNTER 2021-06-03 12:48 | Day surgery (SDC) | payer MEDICAID, SELFPAY ==
[2021-06-03 12:50] VITALS: BP 147/79; PULSE 93; RESP 18; TEMP 36.6; O2SAT 98; BMI 32.1
[2021-06-03 13:33] VITALS: BP 152/91; PULSE 89; RESP 18; O2SAT 96
[2021-06-03 13:37] VITALS: BP 135/89; PULSE 88; RESP 18; O2SAT 97
--- NOTE | 2021-06-03 13:46 | HMH.PMPROC ---
- Procedure Date: 06/03/21 Time: 13:46 Anesthesiologist:: Ashley Cuhng MD Complications:: None Pre-procedure Diagnosis:: Degenerative disc disease of the lumbar spine, lumbar radiculopathy Post-procedure Diagnosis:: Same Indications for Procedure:: Patient is a very pleasant 51-year-old white female who presents today with chronic back pain radiating into bilateral lower extremities and into her feet related to the above diagnosis. She has trialed and failed conservative treatment including oral pain medication and home stretching program for greater than 6 weeks. She has previously undergone 2 lumbar epidural steroid injections with very minimal relief per patient. Of note, she was previously on gabapentin but she is limited to injection therapy at this time given that her previous UDS was positive for cocaine. Plan for today is for the patient to undergo repeat lumbar epidural steroid injection at L5-S1 #3. Procedure Details:: Informed consent was obtained and the risk and benefits of the procedure was explained to the patient. The patient was taken to the procedure room. The patient was placed prone on the procedure table. The patient was prepped and draped in sterile fashion. C-arm fluoroscopy was used to view the lumbar spine. Skin and subcutaneous tissues were anesthetized using 1% lidocaine. I placed an 18-gauge epidural needle and advanced into the L5-S1 interspace using fluoroscopic guidance and [id number] to air and saline. After confirmation of needle placement in the epidural space with dye I injected 1 mL of lidocaine 1.0% with Depo-Medrol 80 mg. Patient tolerated the procedure well with no complications. Plan and Disposition:: We will follow-up with this patient in 2 weeks. Will reevaluate pain symptoms at that time. Discussed with the patient she may benefit from spinal cord stimulator therapy in the future should pain persist despite undergoing these injections. We briefly discussed spinal cord stimulation process including the stim trial first prior to implant. We will give the patient a brochure for more information today and we will further discuss at the next visit if indicated.
[2021-06-03 14:00] VITALS: BP 153/85; PULSE 85; RESP 18; O2SAT 98
== END 2021-06-03 14:00 | disposition home or self-care (01) ==
LOC: SC.PAINP 12:48
PROVIDERS: PCP Nurse Practitioner Family; Visit Provider Anesthesiology Pain Medicine
DX: M51.16 Intervertebral disc disorders with radiculopathy, lumbar region (principal); E07.9 Disorder of thyroid, unspecified; E78.5 Hyperlipidemia, unspecified; I10 Essential (primary) hypertension; M19.90 Unspecified osteoarthritis, unspecified site; J44.9 Chronic obstructive pulmonary disease, unspecified; K21.9 Gastro-esophageal reflux disease without esophagitis; Z85.41 Personal history of malignant neoplasm of cervix uteri
CPT/HCPCS: 62323; J1040; Q9966

== ENCOUNTER → 2021-07-07 10:10 | Outpatient (CLI) | payer MEDICAID, SELFPAY ==
--- NOTE | 2021-07-07 10:15 | XR_ITS ---
PROCEDURE: XR FOOT WT BEARING LT 3V CLINICAL INDICATION: PAIN COMPARISON: CR XR FOOT WT BEARING RT 3V from 07/07/2021 FINDINGS: No fracture or dislocation. No lytic or blastic change. There is normal mineralization. The joint spaces are well-preserved. No significant degenerative/arthritic changes. No erosive changes evident. Other findings:None. IMPRESSION: No acute findings. Dictated by: Albert Higgins MD 07/07/2021 11:29 Albert Higgins MD in [place] 07/07/2021 11:29
--- NOTE | 2021-07-07 10:15 | XR_ITS ---
PROCEDURE: XR FOOT WT BEARING RT 3V CLINICAL INDICATION: PAIN COMPARISON: No exams were available for comparison FINDINGS: No fracture or dislocation. No lytic or blastic change. There is normal mineralization. The joint spaces are well-preserved. No significant degenerative/arthritic changes. No erosive changes evident. Other findings:None. IMPRESSION: No acute findings. Dictated by: Albert Higgins MD 07/07/2021 11:17 Albert Higgins MD in [place] 07/07/2021 11:17
== END ==
PROVIDERS: PCP Nurse Practitioner Family; Visit Provider Podiatrist
DX: M79.672 Pain in left foot (principal); M79.671 Pain in right foot
CPT/HCPCS: 73630

== ENCOUNTER → 2021-07-11 09:09 | Outpatient (POV) | payer MEDICAID, SELFPAY ==
[2021-07-11 09:29] VITALS: BP 135/83; PULSE 98; RESP 18; O2SAT 98; BMI 32.5
--- NOTE | 2021-07-11 09:42 | HMH.PAINSOAP ---
[facility] Pain Management SOAP Note Subjective:: Patient is a 51-year-old white female who presents today for follow-up. The patient recently underwent a lumbar epidural steroid injection at L5-S1, number 3 injection. Patient says that she got 2 weeks of relief and about 80%, however, her pain has returned. This is her third injection. Patient was worked up for a possible intrathecal pain pump, however, on the day of implant, the patient was noted to have cocaine in her system. Unfortunately, the patient did admit to cocaine use. She reports that her father recently causing her depression and anxiety to worsen. She has been using intermittently since age 41. 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 She says her pain is worse and is now limiting her ability to stand, do housework, cook, clean. She says the pain is in her low back with radiation into bilateral lower extremities. She rates her pain a 7 out of 10 today. After discussion with Dr. Chung, the patient was advised she would likely benefit from a spinal cord stimulator. She is here today to discuss her options. She has tried and failed conservative therapies of physical therapy for more than 6 weeks along with continued home stretching and anti-inflammatories. She has had 3 lumbar epidural steroid injections. She has not gotten any significant relief with these injections or conservative therapies. She did have a psychological evaluation for possible intrathecal therapy, however, was not worked up for possible spinal cord stimulation. She will need a repeat psychological evaluation. Review of Systems General: No recent weight changes, no fever, no sleep disturbances Respiratory: No cough, no shortness of air, no recurring pulmonary infections Cardiovascular/peripheral vascular: No chest pain, no palpitations, no edema, no shortness of breath Gastrointestinal: No new onset incontinence, normal bowel movements reported Genitourinary: No new onset incontinence Musculoskeletal: Low back pain with radiation into bilateral lower extremities Psychiatric: [Normal mood/affect] Neurological: [Denies weakness in extremities], [denies balance issues] Objective:: Physical exam General: Alert and oriented x3, no acute distress, pleasant and cooperative, [on room air] Lungs: Respirations even and unlabored, symmetrical chest expansion Eyes: PERRL Musculoskeletal: Flexion and extension of [] lumbar [spine] somewhat guarded secondary to pain, strength in upper and lower extremities [5/5], [antalgic gait noted] Neurological: Speech clear, [home school coordinator equal], no gross sensory deficit Assessment:: Degenerative disc disease lumbar spine with lumbar radiculopathy symptoms Plan:: We will schedule the patient for psychological evaluation to determine if she is an appropriate candidate for spinal cord stimulation. We did work the patient up for possible intrathecal therapy, however, due to a failed drug screen we did not proceed with implant. She has tried and failed conservative therapies of injections, anti-inflammatories, and physical therapy for more than 6 weeks. She has not gotten any significant relief. We will proceed with a psychological evaluation and possible trial for [place] SCS. Risks and benefits of the procedure have been explained to the patient. Patient would like to proceed with the procedure. Patient has been instructed to contact the clinic with any concerns before the next appointment. Dr. Sethi has reviewed this note and agrees with this plan of care. This note was dictated using voice recognition software and make contain errors or omissions. [facility] History I have reviewed the patient's past medical history: Yes Medical History: Reports:: Asthma, Cancer (cervical), Chronic Obstructive Pulmonary Disease (COPD), Hyperlipidemia, Hypertension Denies:: Diabetes Mellitus Type 1, Diabetes Mellitus Type 2, MRSA, Seizures *Have you ever received a p
== END ==
PROVIDERS: PCP Nurse Practitioner Family; Visit Provider Clinical Nurse Specialist Family Health
DX: M51.16 Intervertebral disc disorders with radiculopathy, lumbar region (principal)
CPT/HCPCS: 99212; G0463

== ENCOUNTER → 2021-09-09 10:18 | Outpatient (CLI) | payer MEDICAID, SELFPAY ==
[2021-09-09 10:49] LABS: Amphetamine/Metha Screen,Urine Negative ng/ml (<1000); Barbiturates Screen,Urine Negative ng/ml (<200)
[2021-09-09 10:50] LABS: Benzodiazepines Screen,Urine Negative ng/ml (<200)
[2021-09-09 10:51] LABS: Cannabinoid Screen,Urine Negative ng/ml (<50); Cocaine Screen,Urine Negative ng/ml (<300)
[2021-09-09 10:52] LABS: Methadone Screen,Urine Negative ng/ml (<300)
[2021-09-09 10:53] LABS: Basophils # 0.1 K/mm3 (0-0.2); Basophils % 0.8 % (0.1-2.0); Eosinophils # 0.2 K/mm3 (0.0-0.4); Eosinophils % 2.2 % (0.1-12.0); Hematocrit 44.5 % (37.0-47.0); Hemoglobin 14.7 g/dL (12.2-16.2); Lymphocytes # 2.5 K/mm3 (0.7-4.5); Lymphocytes % 32.1 % (10-50); Mean Corpuscular HGB Conc 33.1 g/dL (31.8-35.4); Mean Corpuscular Hemoglobin 30.2 pg (27.0-31.2); Mean Platelet Volume 8.2 fl (7.4-10.4); Monocytes # 0.4 K/mm3 (0.1-1.0); Monocytes % 5.4 % (1.7-9.3); Neutrophils # 4.6 K/mm3 (1.8-7.8); Neutrophils % 59.5 % (37.0-80.0); Platelet Count 244 K/mm3 (142-424); Red Blood Count 4.89 M/mm3 (4.20-5.40); Red Cell Distribution Width 12.7 % (11.5-17.5); White Blood Count 7.8 K/mm3 (4.8-10.8)
[2021-09-09 10:53] LABS: Opiate Screen,Urine Negative ng/ml (<300); Phencyclidine Screen,Urine Negative ng/ml (<25)
[2021-09-09 11:34] LABS: Alanine Aminotransferase 48 U/L (12-78); Albumin Level 4.5 g/dl (3.5-5.0); Albumin/Globulin Ratio 1.7 (1.1-1.8); Alkaline Phosphatase 120 U/L (38-126); Anion Gap 12.1 mEq/L (5-15); Aspartate Amino Transferase 62 U/L (14-36); Bilirubin,Total 0.5 mg/dl (0.2-1.3); Blood Urea Nitrogen 8 mg/dl (7-17); Calcium 9.8 mg/dl (8.4-10.2); Carbon Dioxide 28 mmol/L (22.0-30.0); Chloride 104 mmol/L (98-107); Estimated Glomerular Filt Rate 88 ml/min (>60); GFR (African American) 106 ML/MIN (>60); Globulin 2.7 g/dL (1.3-3.2); Glucose 116 mg/dl (74-100); Potassium 4.1 mmoL/L (3.5-5.1); Sodium 140 mmol/L (136-145); Total Protein,Serum 7.2 g/dl (6.3-8.2)
[2021-09-09 11:39] LABS: C-Reactive Protein 12.1 mg/L (0-4)
[2021-09-09 11:50] LABS: Erythrocyte Sedimentation Rate 62 mm/hr (0-30)
[2021-09-09 12:05] LABS: Thyroid Stimulating Hormone 2.81 uIU/mL (0.465-4.68)
[2021-09-09 12:39] LABS: Vitamin B12 568 pg/mL (239-931)
[2021-09-20 19:54] LABS: 1,25 Dihydroxy Vitamin D 39 pg/mL (.); 1,25-Dihydroxy, Vitamin D-2 <10 pg/mL (.); 1,25-Dihydroxy, Vitamin D-3 39 pg/mL (.)
== END ==
PROVIDERS: Specialist; Visit Provider Podiatrist
DX: M79.7 Fibromyalgia (principal); G62.9 Polyneuropathy, unspecified; E66.9 Obesity, unspecified; Z68.33 Body mass index [BMI] 33.0-33.9, adult; Z79.899 Other long term (current) drug therapy
CPT/HCPCS: 36415; 80053; 80305; 82607; 82652; 82746; 84443; 85025; 85651; 86140

== ENCOUNTER → 2021-09-21 16:42 | Outpatient (CLI) | payer MEDICAID, SELFPAY ==
--- NOTE | 2021-09-21 16:42 | MR_ITS ---
PROCEDURE: MR LUMBAR SPINE WO CON CLINICAL INDICATION: Lumbosacral spondylosis with L4-L5 radiculopathy Low back pain. Bilateral leg pain and tingling but left leg is worse. Symptoms for 1 year. No injury or trauma. COMPARISON: No exams were available for comparison TECHNIQUE: Standard multiplanar multiecho sequences are performed without contrast. 3-D MIP and myelographic images are also rendered and reviewed FINDINGS: At L1-2, there is no canal or neuroforaminal stenosis. At L2-3, there is no canal or neuroforaminal stenosis. At L3-4, there is diffuse disc bulge, facet arthropathy, and ligamentum flavum hypertrophy producing moderate right neural foraminal stenosis. At L4-5, there is diffuse disc bulge asymmetric to the left, ligamentum flavum hypertrophy, and facet arthropathy producing mild canal stenosis, moderate right neural foraminal stenosis and severe left neuroforaminal stenosis. There is also edema in the left facet joint at this level. At L5-S1, there is a central disc bulge without significant canal or neural foraminal stenosis. IMPRESSION: 1. Lumbar spondylosis with degenerative disc disease at L4-5 with asymmetric disc bulge to the left, ligamentum flavum hypertrophy, and facet arthropathy, producing moderate right and severe left neural foraminal stenosis. 2. Edema in the left L4-5 facet, suggesting this also a pain generator. Dictated by: Yolette Warner MD 09/22/2021 08:17 Yolette Warner MD in [place] 09/22/2021 08:17
== END ==
PROVIDERS: PCP Nurse Practitioner Family; Visit Provider Specialist
DX: M54.41 Lumbago with sciatica, right side (principal); M54.42 Lumbago with sciatica, left side; M47.27 Other spondylosis with radiculopathy, lumbosacral region; R20.0 Anesthesia of skin; G89.29 Other chronic pain
CPT/HCPCS: 72148; 76376

== ENCOUNTER 2021-10-04 09:33 | Emergency (ER) | payer MEDICAID, SELFPAY ==
[2021-10-04 09:34] VITALS: BP 112/86; PULSE 80; RESP 21; TEMP 37.1; O2SAT 98; BMI 32.1
[2021-10-04 11:00] LABS: Apearance,Urine Clear (Clear); Color,Urine Yellow (Yellow); PH,Urine 5.5 (5.0-8.5); Protein,Urine Negative (Negative); Specific Gravity, Urine 1.005 (1.005-1.030)
[2021-10-04 11:01] LABS: Bilirubin,Urine Negative (Negative); Blood, Urine Negative (Negative); Glucose,Urine (UA) Negative (Negative); Ketones,Urine Negative (Negative); UTC Leukocyte Esterase,Urine Negative (Negative); UTC Nitrate,Urine Negative (Negative); Urobilinogen,Urine 0.2 EU/dl (0.2)
--- NOTE | 2021-10-04 11:08 | HMH.EDUTC ---
[facility] Disposition Clinical Impression: Abdominal pain Qualifiers: Abdominal location: unspecified location Qualified Code(s): R10.9 - Unspecified abdominal pain Disposition: Left Against Medical Advice Condition on Discharge: Good Referrals: Shanice Acevedo APRN [Primary Care Provider] - Time of Disposition: 11:14 Medical Decision Making - Bruno Inquiry Pt receiving controlled substance: No Bruno was queried for this patient: No Vital Signs: 10/04/21 09:34 10/04/21 11:28 Temperature 98.8 F 98.8 F Temperature Source Oral Oral Pulse Rate 80 Pulse Rate [Left Radial] 80 Respiratory Rate 21 21 Blood Pressure 112/86 Blood Pressure [Right Arm] 112/86 Blood Pressure Mean [Right Arm] 94 Blood Pressure Source Automatic Cuff Blood Pressure Source [Right Arm] Automatic Cuff Blood Pressure Position Sitting Blood Pressure Position [Right Arm] Sitting 02 Sat by Pulse Oximetry 98 Oxygen Delivery Method Room Air Room Air - Lab Data Lab Results 10/04/21 10:55: Urine Color Yellow, Urine Appearance Clear, Urine pH 5.5, Ur Specific [place] 1.005, Urine Protein Negative, Urine Glucose (UA) Negative, Urine Ketones Negative, Urine Blood Negative, Urine Nitrate Negative, Urine Bilirubin Negative, Urine Urobilinogen 0.2, Ur Leukocyte Esterase Negative Medical Decision Narrative: Called ED and spoke with Kristina Levin and patient was being transferred to the ED due to abdominal pain, abdominal swelling and pressure like feeling in chest patient was given room 7 in the ED [facility] HPI - General Stated complaint: chills, weakness, vomiting, chest congestion Time Seen by Provider: 10/04/21 11:08 Mode of Arrival: Ambulatory Source of Information: Patient Limitations: No Limitations Description of Symptoms (Recalled from Triage Doc. by RN): stomach upset, real bad acid reflux, diarrhea for one week HEENT Symptoms (Recalled from RN notes): No Resp Symptoms (Recalled from RN notes): No Skin Symptoms (Recalled from RN notes): No MS Symptoms (Recalled from RN notes): No Functional Status (Recalled from RN notes): na - History of Present Illness Provider Complaint: Patient states that she had been having issues with Acid reflux earlier in the week States that she took some over the counter tums and they helped some States that she has been having pain in her upper abdominal area and her whole stomach felt sore and hurts, States that she has had episodes of diarrhea on and off and feels like she has pressure like feeling in her chest area States that she feels weak and fatigued so she came in to get seen - Related Data Home Medications Medication Instructions Recorded Confirmed Buspirone HCl [Buspar 10mg 10 mg PO BID 05/12/21 10/03/21 tablet] Montelukast Sodium [Singulair] 10 mg PO PM 05/12/21 10/03/21 PARoxetine HCL [Paxil] 40 mg PO DAILY 05/12/21 10/03/21 estradioL [Estradiol] 0.5 mg PO DAILY 05/12/21 10/03/21 pantoprazole 40 mg tablet,delayed 40 mg PO DAILY 07/07/21 10/03/21 release lidocaine-prilocaine 2.5 %-2.5 % 1 applic TOPICAL .COMPLEX g 09/08/21 10/03/21 topical cream melatonin 5 mg tablet 5 mg PO HS tab 09/08/21 10/03/21 quetiapine 100 mg tablet 100 mg PO HS tab 09/08/21 10/03/21 trazodone 100 mg tablet 200 mg PO HS tab 09/08/21 10/03/21 albuterol sulfate 90 mcg/actuation 2 puff INHALATION PRN g 10/03/21 10/03/21 aerosol inhaler atorvastatin 20 mg tablet 20 mg PO HS tab 10/03/21 10/03/21 fluticasone propionate 50 1 spray INTRANASAL ONCE g 10/03/21 10/03/21 mcg/actuation nasal spray,suspension pregabalin 50 mg capsule 100 mg PO BID cap 10/03/21 Previous Rx's Medication Instructions Recorded Ondansetron [Zofran 4mg ODT] 4 mg PO TIDP PRN #10 tab 04/18/21 Allergies Allergy/AdvReac Type Severity Reaction Status Date / Time Sulfa (Sulfonamide Allergy Verified 10/03/21 11:34 Antibiotics) - Worker's Comp Is this a Worker's Comp case?: No [facility] History - Hep
[2021-10-04 11:28] VITALS: BP 112/86; PULSE 80; RESP 21; TEMP 37.1; O2SAT 98
--- NOTE | 2021-10-04 11:28 | PC.NURSE ---
PT states that she does not want to wait and she feels that their are more people worse than her and she thinks it is acid reflux and constipation. STates that if she feels worse she will come back
== END 2021-10-04 11:29 | disposition left against medical advice (07) ==
PROVIDERS: Emergency Provider Nurse Practitioner; PCP Nurse Practitioner Family
DX: J44.1 Chronic obstructive pulmonary disease with (acute) exacerbation (principal); E78.5 Hyperlipidemia, unspecified; I10 Essential (primary) hypertension; F33.1 Major depressive disorder, recurrent, moderate; F17.210 Nicotine dependence, cigarettes, uncomplicated; K21.9 Gastro-esophageal reflux disease without esophagitis; Z79.899 Other long term (current) drug therapy
CPT/HCPCS: 81003; 99202; G0463

== ENCOUNTER 2021-10-05 10:37 | Emergency (ER) | payer MEDICAID, SELFPAY ==
[2021-10-05 10:42] VITALS: BP 120/76; PULSE 91; RESP 18; TEMP 36.9; O2SAT 94; BMI 32.1
--- NOTE | 2021-10-05 10:49 | ECG_ITS ---
APPROVED REPORT Exam: Resting ECG HR:89 bpm ECG Measurements Heart Rate 89 AXES WI 134 P 67 QRSd 72 QRS 36 QT 368 T 57 QTc 447 Conclusion Normal sinus rhythm Normal ECG Electronically signed by : Jared Anaya MD 10/07/2021 13:54:19
[2021-10-05 11:00] VITALS: BP 119/70; PULSE 79; RESP 18; O2SAT 96
--- NOTE | 2021-10-05 11:10 | XR_ITS ---
PROCEDURE: XR CHEST 2V CLINICAL HISTORY: cough, chest tightness, SOA COMPARISON: CR CXR2V XR chest 2V from 12/14/2017 CR XR CHEST 2V from 10/04/2020 FINDINGS: The cardiomediastinal silhouette and pulmonary vascularity are within normal limits. The lungs are clear without infiltrates, suspicious nodules, or pleural effusions. Calcified granuloma in the lingula. No acute bony abnormalities. IMPRESSION: No change with no acute finding. Dictated by: Albert Higgins MD 10/05/2021 11:42 Albert Higgins MD in [place] 10/05/2021 11:42
[2021-10-05 11:18] LABS: Coronavirus 19, PCR Not Detected (NotDetected); Influenza A, PCR Not Detected (NotDetected); Influenza B, PCR Not Detected (NotDetected)
[2021-10-05 11:20] LABS: Basophils # 0.1 K/mm3 (0-0.2); Basophils % 1.3 % (0.1-2.0); Eosinophils # 0.2 K/mm3 (0.0-0.4); Eosinophils % 1.8 % (0.1-12.0); Hematocrit 43.1 % (37.0-47.0); Hemoglobin 14.5 g/dL (12.2-16.2); Lymphocytes # 2.6 K/mm3 (0.7-4.5); Mean Corpuscular HGB Conc 33.7 g/dL (31.8-35.4); Mean Corpuscular Hemoglobin 30.2 pg (27.0-31.2); Mean Corpuscular Volume 89.5 fl (81-99); Mean Platelet Volume 8.4 fl (7.4-10.4); Monocytes # 0.7 K/mm3 (0.1-1.0); Monocytes % 7.1 % (1.7-9.3); Neutrophils % 62.8 % (37.0-80.0); Platelet Count 246 K/mm3 (142-424); Red Blood Count 4.82 M/mm3 (4.20-5.40); White Blood Count 9.6 K/mm3 (4.8-10.8)
[2021-10-05 11:21] LABS: Chloride 101 mmol/L (98-107); Potassium 4.1 mmoL/L (3.5-5.1); Sodium 137 mmol/L (136-145)
[2021-10-05 11:24] LABS: Blood Urea Nitrogen 9 mg/dl (7-17); Creatinine Clearance Estimated 114 mL/min (50-200); Estimated Glomerular Filt Rate 88 ml/min (>60); GFR (African American) 106 ML/MIN (>60)
[2021-10-05 11:25] LABS: Anion Gap 13.1 mEq/L (5-15); Calcium 9.7 mg/dl (8.4-10.2); Carbon Dioxide 27 mmol/L (22.0-30.0); Glucose 135 mg/dl (74-100)
[2021-10-05 11:38] LABS: Troponin I < 0.01 ng/ml (0.00-0.034)
[2021-10-05 12:02] VITALS: BP 90/63; PULSE 87; RESP 18; O2SAT 95
--- NOTE | 2021-10-05 12:28 | PC.NURSE ---
RT at BS for neb treatment
[2021-10-05 12:29] VITALS: PULSE 80; PULSE 91
[2021-10-05 12:33] VITALS: BP 103/60; PULSE 88; RESP 18; O2SAT 91
--- NOTE | 2021-10-05 12:45 | PC.NURSE ---
Called dietary for regular food tray
[2021-10-05 13:15] LABS: Appearance,Urine CLEAR (Clear); Bilirubin,Urine Negative (Negative); Blood, Urine Negative (Negative); Color,Urine YELLOW (Yellow); Glucose,Urine (UA) Negative (Negative); Ketones,Urine Negative (Negative); Leukocyte Esterase,Urine Negative (Negative); Nitrate,Urine Negative (Negative); Protein,Urine Negative (Negative); Specific Gravity, Urine <= 1.005 (1.005-1.030); Urobilinogen,Urine 0.2 EU/dl (0.2)
[2021-10-05 13:16] LABS: Microscopic, Urine URINE MICROSCOPIC (MICROSCOPIC)
--- NOTE | 2021-10-05 13:25 | HMH.EDSOB ---
ED Disposition Clinical Impression: COPD exacerbation Disposition: Home, Self-Care Condition on Discharge: Good Instructions: DI for Chronic Obstructive Pulmonary Disease Additional Instructions: Please follow-up with your primary care physician in 2 to 3 days for further management. Please continue to drink plenty of water and eat 3 balanced meals. Please take your albuterol inhaler 3 puffs every 6 hours for the next 2 days. Please return back to the emergency department for any concerning symptoms such as difficulty breathing, chest pain, lethargy, inability to eat and drink or any other worsening symptoms. Referrals: Shanice Acevedo APRN [Primary Care Provider] - Time of Disposition: 01:00 - Critical Care Critical Care Time: No Attestation: On 10/05/21, the high probability of a clinically significant, sudden or life threatening deterioration of the following system(s) required my full and direct attention, intervention and personal management. The time I documented below is in addition to time spent performing reported procedures but includes the following listed in this critical care notation. Medical Decision Making - Bruno Inquiry Pt receiving controlled substance: No Vital Signs: 10/05/21 10:42 10/05/21 11:00 10/05/21 12:02 Temperature 98.5 F Temperature Source Oral Pulse Rate 79 87 Pulse Rate [Right Radial] 91 H Respiratory Rate 18 18 18 Blood Pressure 119/70 90/63 L Blood Pressure [Right Arm] 120/76 Blood Pressure Mean 91 72 Blood Pressure Mean [Right Arm] 90 Blood Pressure Source [Right Arm] Automatic Cuff Blood Pressure Position [Right Arm] Sitting 02 Sat by Pulse Oximetry 94 L 96 95 Oxygen Delivery Method Room Air Room Air Room Air 10/05/21 12:29 10/05/21 12:33 10/05/21 13:54 Temperature 98.5 F Temperature Source Pulse Rate 80 88 88 Pulse Rate [Right Radial] Respiratory Rate 18 18 Blood Pressure 103/60 L 103/60 L Blood Pressure [Right Arm] Blood Pressure Mean 74 Blood Pressure Mean [Right Arm] Blood Pressure Source [Right Arm] Blood Pressure Position [Right Arm] 02 Sat by Pulse Oximetry 91 L Oxygen Delivery Method Room Air Room Air - Lab Data Lab Results 10/05/21 10:56: WBC 9.6, RBC 4.82, Hgb 14.5, Hct 43.1, MCV 89.5, MCH 30.2, MCHC 33.7, RDW 13.0, Plt Count 246, MPV 8.4, Neut % (Auto) 62.8, Lymph % (Auto) 27.0, [place] % (Auto) 7.1, Eos % (Auto) 1.8, Baso % (Auto) 1.3, Neut # (Auto) 6.0, Lymph # (Auto) 2.6, [place] # (Auto) 0.7, Eos # (Auto) 0.2, Baso # (Auto) 0.1 10/05/21 10:56: Sodium 137, Potassium 4.1, Chloride 101, Carbon Dioxide 27, Anion Gap 13.1, BUN 9, Creatinine 0.70, Estimated Creat Clear 114, Estimated GFR 88, Est GFR ( Amer) 106, Glucose 135 H, Calcium 9.7, Troponin I < 0.01 10/05/21 10:58: SARS-CoV-2 (PCR) Not detected, Influenza A Untype (PCR) Not detected, Influenza Type B (PCR) Not detected 10/05/21 12:33: Urine Color Yellow, Urine Appearance Clear, Urine pH 6.0, Ur Specific [place] <= 1.005, Urine Protein Negative, Urine Glucose (UA) Negative, Urine Ketones Negative, Urine Blood Negative, Urine Nitrate Negative, Urine Bilirubin Negative, Urine Urobilinogen 0.2, Ur Leukocyte Esterase Negative, Urine RBC None, Urine WBC 3-5, Ur Squamous Epith Cells Occasional, Urine Bacteria None Result diagrams: 10/05/21 10:56 10/05/21 10:56 Orders (Tests/Meds): ED MEDICATIONS Discontinued Medications Generic Name Dose Route Start Last Admin Trade Name Teodora PRN Reason Stop Dose Admin Albuterol/Ipratropium 3 ml 10/05/21 12:11 10/05/21 12:29 Ipratropium/Albuterol 3 Ml Neb IH 10/05/21 12:12 3 ml ONCE ONE Administration Dexamethasone Sodium Phosphate 8 mg 10/05/21 12:10 10/05/21 12:27 Dexamethasone 4mg/Ml 1ml Vial IV 10/05/21 12:11 8 mg ONCE ONE Administration Medical Decision Narrative: Miss Rolon is a 51 yo female w/ PMH for COPD who presents to the ED for cough, congestion, dyspnea and chest pain
[2021-10-05 13:29] LABS: Squamous Epithelial Cell,Urine Occasional #/hpf (0-5)
[2021-10-05 13:54] VITALS: BP 103/60; PULSE 88; RESP 18; TEMP 36.9; O2SAT 91
--- NOTE | 2021-10-05 13:54 | PC.NURSE ---
entered room to d/c pt, pt was not in room, blood noted on floor, bed and bedside table. IV and dressing noted in trash can in room. notified ER MD pt left prior to receiving d/c paperwork. Had previously just informed pt 15 mins prior that ER MD will be working on pt d/c paperwork but she is in with a critical pt. Pt was standing at her doorway of her room. Pt was not happy with having to wait to be discharged.
== END 2021-10-05 13:54 | disposition home or self-care (01) ==
PROVIDERS: Emergency Provider Student in an Organized Health Care Education/Training Program; PCP Nurse Practitioner Family
DX: J44.1 Chronic obstructive pulmonary disease with (acute) exacerbation (principal); E78.5 Hyperlipidemia, unspecified; I10 Essential (primary) hypertension; Z88.2 Allergy status to sulfonamides
CPT/HCPCS: 71046; 80048; 81001; 84484; 85025; 93005; 96374; 99284; C9803; U0003; U0005

== ENCOUNTER → 2021-12-08 13:15 | Outpatient (POV) | payer MEDICAID, SELFPAY ==
[2021-12-08 13:43] VITALS: BP 144/83; PULSE 90; RESP 18; O2SAT 95; BMI 33.0
--- NOTE | 2021-12-08 14:28 | HMH.PAINSOAP ---
[facility] Pain Management SOAP Note Subjective:: Patient is a 51-year-old white female who presents today for for follow-up. Patient was worked up for possible spinal cord stimulator. She has also been worked up for possible intrathecal pain pump. Unfortunately she has been denied per her psychological evaluation to be an appropriate candidate for either device. She does admit to a history of illicit drug use with CBD, marijuana, cocaine, tranquilizers/sleeping pills, and alcohol. She did admit to this use prior to and following her father's . She is officially claimed 3 weeks today. She says that she is doing outpatient rehabilitation. She does have a good support system. She is open to injective therapy. She is having pain that is made worse with bending forward today. The patient has tried 3 lumbar epidural steroid injections and got up to 2 weeks of relief but the pain did return. The pain does get worse with extension and turning and twisting at waist as well. Today, she does rate her pain a 6 out of 10. She does have an MRI notable for lumbar spondylosis. Review of Systems General: No recent weight changes, no fever, no sleep disturbances Respiratory: No cough, no shortness of air, no recurring pulmonary infections Cardiovascular/peripheral vascular: No chest pain, no palpitations, no edema, no shortness of breath Gastrointestinal: No new onset incontinence, normal bowel movements reported Genitourinary: No new onset incontinence Musculoskeletal: Low back pain made worse with bending, twisting, turning at waist Psychiatric: [Normal mood/affect] Neurological: [Denies weakness in extremities], [denies balance issues] Objective:: Physical exam General: Alert and oriented x3, no acute distress, pleasant and cooperative Lungs: Respirations even and unlabored, symmetrical chest expansion Eyes: PERRL Musculoskeletal: Flexion and extension of lumbar [spine] somewhat guarded secondary to pain, [antalgic gait noted], positive Kemps test Neurological: Speech clear, no gross sensory deficit Assessment:: Degenerative disc disease lumbar spine arthropathy and lumbar spondylosis Plan:: Unfortunately, the patient was not considered an appropriate candidate for intrathecal therapy or spinal cord stimulation. She is open to injective therapy. We will schedule the patient for a lumbar medial branch block at L4-L5 L5-S1 bilaterally. She is not on any anticoagulation therapy and is not diabetic. She does have a positive Kemps test today. She has tried physical therapy for more than 6 weeks and does continue with home stretching. The patient is free of illicit drug use for 3 weeks now. Possible side effects of corticosteroids have been discussed with the patient. Risks and benefits of the procedure have been explained to the patient. Patient would like to proceed with the procedure. Patient has been instructed to contact the clinic with any concerns before the next appointment. Dr. Sethi has reviewed this note and agrees with this plan of care. This note was dictated using voice recognition software and make contain errors or omissions. [facility] History I have reviewed the patient's past medical history: Yes Medical History: Reports:: Asthma, Cancer, Chronic Obstructive Pulmonary Disease (COPD), Depression, Hyperlipidemia, Hypertension, Lung Disease Denies:: Diabetes Mellitus Type 1, Diabetes Mellitus Type 2, MRSA, Seizures *Have you ever received a pneumonia vaccine?: No *Have you received a flu vaccine this season?: No Other Medical History: Reports: Arthritis, Fibromyalgia, Thyroid Disease. Denies: Blood Transfusion Reaction Other Surgeries: Yes: Cancer Surgery, Colonoscopy, Hysterectomy-Total, Hysterectomy-Partial, Sinus Surgery, ThyroidectomyComment Only: Other (cone biopsy) Amputation: No Fractures: No - *Social History Smoking Status: Current every day smoker Tobacco Type: cigarettes # Packs/Day (cigarettes): 1
== END ==
PROVIDERS: Visit Provider Clinical Nurse Specialist Family Health
DX: M51.36 Other intervertebral disc degeneration, lumbar region (principal); M47.816 Spondylosis without myelopathy or radiculopathy, lumbar region; M54.06 Panniculitis affecting regions of neck and back, lumbar region
CPT/HCPCS: 99212; G0463

== ENCOUNTER 2021-12-26 14:37 | Emergency (ER) | payer MEDICAID, SELFPAY ==
[2021-12-26 15:32] VITALS: BP 142/73; PULSE 76; RESP 18; TEMP 37.1; O2SAT 95; BMI 32.1
--- NOTE | 2021-12-26 15:43 | HMH.EDGENADL ---
ED Disposition Clinical Impression: COPD exacerbation Disposition: Home, Self-Care Condition on Discharge: Good Instructions: DI for Chronic Obstructive Pulmonary Disease Additional Instructions: follow up pcp, return for worse Prescriptions: Albuterol Sulfate [Proventil-HFA 90mcg/puff Inh] 1 - 2 puffs IH Q4HP PRN #1 each PRN Reason: Wheezing Transmission Status: Pending to [facility] methylPREDNISolone [Medrol 4mg tab] 4 mg PO DIRECTED #21 tab [facility]: [facility] Azithromycin [Zithromax 500mg Tab Tri-Juventino] 500 mg PO DAILY #3 tab Transmission [facility]: [email or web address] Referrals: Shanice Acevedo APRN [Primary Care Provider] - - Critical Care Critical Care Time: No Attestation: On 12/26/21, the high probability of a clinically significant, sudden or life threatening deterioration of the following system(s) required my full and direct attention, intervention and personal management. The time I documented below is in addition to time spent performing reported procedures but includes the following listed in this critical care notation. Medical Decision Making - Medical Records Medical records reviewed: Yes: I reviewed the patient's medical records. - Bruno Inquiry Pt receiving controlled substance: No Vital Signs: 12/26/21 15:32 Temperature 98.8 F Temperature Source Oral Pulse Rate [Left Radial] 76 Respiratory Rate 18 Blood Pressure [Right Arm] 142/73 H Blood Pressure Mean [Right Arm] 96 02 Sat by Pulse Oximetry 95 Oxygen Delivery Method Room Air General Adult HPI - General Chief complaint: Upper Respiratory Infection Stated complaint: possible pneumonia Time Seen by Provider: 12/26/21 15:43 Mode of Arrival: Ambulatory Limitations: No Limitations Description of Symptoms (Recalled from ER Triage Doc. by RN): pt to ed c/o non-productive cough x1 week. pt states she has a hx of copd. pt denies soa or cp. 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, inbtermittent, sinus congestion Onset (ago): day(s) Radiation: non-radiation Severity: moderate Quality: constant Consistency: intermittent Relieving factors: none Exacerbating factors: none Associated symptoms: denies other symptoms - Related Data Home Medications Medication Instructions Recorded Confirmed Buspirone HCl [Buspar 10mg 10 mg PO BID 05/12/21 11/29/21 tablet] Montelukast Sodium [Singulair] 10 mg PO PM 05/12/21 11/29/21 PARoxetine HCL [Paxil] 40 mg PO DAILY 05/12/21 11/29/21 estradioL [Estradiol] 0.5 mg PO DAILY 05/12/21 11/29/21 pantoprazole 40 mg tablet,delayed 40 mg PO DAILY 07/07/21 11/29/21 release lidocaine-prilocaine 2.5 %-2.5 % 1 applic TOPICAL .COMPLEX g 09/08/21 11/29/21 topical cream melatonin 5 mg tablet 5 mg PO HS tab 09/08/21 11/29/21 quetiapine 100 mg tablet 100 mg PO HS tab 09/08/21 11/29/21 trazodone 100 mg tablet 200 mg PO HS tab 09/08/21 11/29/21 albuterol sulfate 90 mcg/actuation 2 puff INHALATION PRN g 10/03/21 11/29/21 aerosol inhaler atorvastatin 20 mg tablet 20 mg PO HS tab 10/03/21 11/29/21 fluticasone propionate 50 1 spray INTRANASAL ONCE g 10/03/21 11/29/21 mcg/actuation nasal spray,suspension hydroxyzine HCl 50 mg tablet 50 mg PO TID tab 11/29/21 11/29/21 Previous Rx's Medication Instructions Recorded Ondansetron [Zofran 4mg ODT] 4 mg PO TIDP PRN #10 tab 04/18/21 pregabalin 50 mg capsule 100 mg PO BID #120 cap 12/19/21 Albuterol Sulfate [Proventil-HFA 1 - 2 puffs IH Q4HP PRN #1 each 12/26/21 90mcg/puff Inh] Azithromycin [Zithromax 500mg Tab 500 mg PO DAILY #3 tab 12/26/21 Tri-Juventino] methylPREDNISolone [Medrol 4mg 4 mg PO DIRECTED #21 tab 12/26/21 tab] Allergies Allergy/AdvReac Type Severity Reaction Status Date / Time Sulfa (Sulfonamide Allergy Verified 11/29/21 14:57 Antibiotics) [facility] History - Hepatitis A Screen D
[2021-12-26 17:10] VITALS: BP 130/82; PULSE 75; O2SAT 98
[2021-12-26 17:36] VITALS: BP 128/85; PULSE 74; RESP 16; TEMP 37.1; O2SAT 99
== END 2021-12-26 17:37 | disposition home or self-care (01) ==
PROVIDERS: Emergency Provider Emergency Medicine; PCP Nurse Practitioner Family
DX: J44.1 Chronic obstructive pulmonary disease with (acute) exacerbation (principal); I10 Essential (primary) hypertension; E78.5 Hyperlipidemia, unspecified; M79.7 Fibromyalgia; F17.210 Nicotine dependence, cigarettes, uncomplicated
CPT/HCPCS: 99281

== ENCOUNTER 2022-01-05 16:31 | Emergency (ER) | payer OTHER, MEDICAID, SELFPAY ==
[2022-01-05 16:35] VITALS: BP 125/81; PULSE 76; RESP 16; TEMP 36.9; O2SAT 96; BMI 32.1
[2022-01-05 17:35] VITALS: BMI 32.1
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
--- NOTE | 2022-01-05 17:47 | ECG_ITS ---
APPROVED REPORT Exam: Resting ECG HR:71 bpm ECG Measurements Heart Rate 71 AXES MI 158 P 65 QRSd 89 QRS 70 QT 403 T 53 QTc 425 Conclusion SINUS RHYTHM NORMAL ECG UNCONFIRMED REPORT Electronically signed by : Jared Anaya MD 01/05/2022 18:58:52
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
[2022-01-05 17:49] LABS: Basophils # 0.2 K/mm3 (0-0.2); Basophils % 1.6 % (0.1-2.0); Eosinophils # 0.3 K/mm3 (0.0-0.4); Eosinophils % 2.4 % (0.1-12.0); Hematocrit 39.5 % (37.0-47.0); Hemoglobin 12.8 g/dL (12.2-16.2); Lymphocytes # 2.6 K/mm3 (0.7-4.5); Lymphocytes % 21.9 % (10-50); Mean Corpuscular HGB Conc 32.5 g/dL (31.8-35.4); Mean Corpuscular Hemoglobin 28.9 pg (27.0-31.2); Mean Platelet Volume 8.5 fl (7.4-10.4); Monocytes # 0.6 K/mm3 (0.1-1.0); Monocytes % 5.2 % (1.7-9.3); Neutrophils # 8.1 K/mm3 (1.8-7.8); Neutrophils % 68.8 % (37.0-80.0); Platelet Count 249 K/mm3 (142-424); Red Blood Count 4.44 M/mm3 (4.20-5.40); Red Cell Distribution Width 13.4 % (11.5-17.5); White Blood Count 11.7 K/mm3 (4.8-10.8)
[2022-01-05 18:01] LABS: Chloride 105 mmol/L (98-107); Sodium 134 mmol/L (136-145)
[2022-01-05 18:02] LABS: Potassium 3.8 mmoL/L (3.5-5.1)
[2022-01-05 18:04] LABS: Alanine Aminotransferase 24 U/L (12-78); Alkaline Phosphatase 102 U/L (38-126); Aspartate Amino Transferase 38 U/L (14-36); Bilirubin,Total 0.5 mg/dl (0.2-1.3); Blood Urea Nitrogen 10 mg/dl (7-17); Creatinine Clearance Estimated 113 mL/min (50-200); Estimated Glomerular Filt Rate 88 ml/min (>60); GFR (African American) 106 ML/MIN (>60)
[2022-01-05 18:05] LABS: Albumin Level 3.7 g/dl (3.5-5.0); Albumin/Globulin Ratio 1.5 (1.1-1.8); Anion Gap 5.8 mEq/L (5-15); Calcium 7.8 mg/dl (8.4-10.2); Carbon Dioxide 27 mmol/L (22.0-30.0); Globulin 2.5 g/dL (1.3-3.2); Glucose 98 mg/dl (74-100); Total Protein,Serum 6.2 g/dl (6.3-8.2)
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
[2022-01-05 18:18] LABS: Troponin I < 0.01 ng/ml (0.00-0.034)
--- NOTE | 2022-01-05 18:21 | HMH.EDGENADL ---
ED Disposition Clinical Impression: Syncope and collapse Medication adverse effect Qualifiers: Encounter type: initial encounter Qualified Code(s): T50.905A - Adverse effect of unspecified drugs, medicaments and biological substances, initial encounter Disposition: Home, Self-Care Condition on Discharge: Good Instructions: DI for Syncope in Adults (Fainting) Additional Instructions: Recommend stopping Suboxone or at least cutting back by half until Sunday when you can contact your provider. Do not drive while taking Suboxone or any other sedating medications. Return to the emergency department if symptoms worsen. Additional instructions for PNEUMONIA: Take antibiotics as prescribed. See your physician as soon as possible for further evaluation. Return immediately if you have an uncontrollable fever greater than 102 degrees, difficulty breathing or shortness of breath, persistent vomiting, or severe chest pain. Prescriptions: levoFLOXacin [Levaquin 500mg tab] 500 mg PO DAILY #9 tab Transmission Status: Pending to [facility] Referrals: Shanice Acevedo APRN [Primary Care Provider] - - Critical Care Critical Care Time: No Attestation: On 01/05/22, the high probability of a clinically significant, sudden or life threatening deterioration of the following system(s) required my full and direct attention, intervention and personal management. The time I documented below is in addition to time spent performing reported procedures but includes the following listed in this critical care notation. Medical Decision Making - Bruno Inquiry Pt receiving controlled substance: No Vital Signs: 01/05/22 16:35 01/05/22 19:14 01/05/22 19:31 Temperature 98.5 F Temperature Source Oral Pulse Rate 73 80 Pulse Rate [Left Radial] 76 Respiratory Rate 16 Blood Pressure 133/69 117/96 H Blood Pressure [Right Arm] 125/81 Blood Pressure Mean [Right Arm] 95 02 Sat by Pulse Oximetry 96 96 93 L Oxygen Delivery Method Room Air - Lab Data Lab Results 01/05/22 17:40: WBC 11.7 H, RBC 4.44, Hgb 12.8, Hct 39.5, MCV 89.0, MCH 28.9, MCHC 32.5, RDW 13.4, Plt Count 249, MPV 8.5, Neut % (Auto) 68.8, Lymph % (Auto) 21.9, Hardin % (Auto) 5.2, Eos % (Auto) 2.4, Baso % (Auto) 1.6, Neut # (Auto) 8.1 H, Lymph # (Auto) 2.6, Hardin # (Auto) 0.6, Eos # (Auto) 0.3, Baso # (Auto) 0.2 01/05/22 17:40: Sodium 134 L, Potassium 3.8, Chloride 105, Carbon Dioxide 27, Anion Gap 5.8, BUN 10, Creatinine 0.70, Estimated Creat Clear 113, Estimated GFR 88, Est GFR ( Amer) 106, Glucose 98, Calcium 7.8 L, Total Bilirubin 0.5, AST 38 H, ALT 24, Alkaline Phosphatase 102, Troponin I < 0.01, Total Protein 6.2 L, Albumin 3.7, Globulin 2.5, Albumin/Globulin Ratio 1.5 01/05/22 19:07: Urine Color Yellow, Urine Appearance Clear, Urine pH 6.0, Ur Specific Warrior 1.010, Urine Protein Negative, Urine Glucose (UA) Negative, Urine Ketones Negative, Urine Blood Negative, Urine Nitrate Negative, Urine Bilirubin Negative, Urine Urobilinogen 0.2, Ur Leukocyte Esterase Negative, Urine RBC None, Urine WBC None, Ur Squamous Epith Cells 3-5, Urine Bacteria None 01/05/22 19:07: Urine Opiates Screen Negative, Urine Methadone Screen Negative, Ur Barbituates Screen Negative, Ur Phencyclidine Scrn Negative, Ur Amphetamines Screen Negative, U Benzodiazepines Scrn Negative, Urine Cocaine Screen Negative, U Marijuana (THC) Screen Negative Result diagrams: 01/05/22 17:40 01/05/22 17:40 Orders (Tests/Meds): ED MEDICATIONS Generic Name Dose Route Start Last Admin Trade Name Teodora PRN Reason Stop Dose Admin Levofloxacin/Dextrose 750 mg in 150 mls @ 100 mls/hr 01/05/22 19:00 01/05/22 19:16 Levofloxacin 750mg/150ml Premix IV 01/19/22 18:59 100 mls/hr Q24H LEON Administration ORDERS Category Date Time Status Lactic Acid Stat Lab 01/05/22 18:50 Ordered Rapid PCR Covid and Flu A/B Stat Lab 01/05/22 18:51 Ordered Troponin I Q3H Lab 01/05/22 20:
[2022-01-05 19:11] LABS: Microscopic, Urine URINE MICROSCOPIC (MICROSCOPIC)
[2022-01-05 19:14] VITALS: BP 133/69; PULSE 73; O2SAT 96
[2022-01-05 19:21] LABS: Appearance,Urine CLEAR (Clear); Bilirubin,Urine Negative (Negative); Blood, Urine Negative (Negative); Color,Urine YELLOW (Yellow); Glucose,Urine (UA) Negative (Negative); Ketones,Urine Negative (Negative); Leukocyte Esterase,Urine Negative (Negative); Nitrate,Urine Negative (Negative); Protein,Urine Negative (Negative); Urobilinogen,Urine 0.2 EU/dl (0.2)
[2022-01-05 19:31] VITALS: BP 117/96; PULSE 80; O2SAT 93
[2022-01-05 19:46] LABS: Amphetamine/Metha Screen,Urine Negative ng/ml (<1000)
[2022-01-05 19:47] LABS: Barbiturates Screen,Urine Negative ng/ml (<200)
[2022-01-05 19:48] LABS: Benzodiazepines Screen,Urine Negative ng/ml (<200); Cannabinoid Screen,Urine Negative ng/ml (<50)
[2022-01-05 19:49] LABS: Cocaine Screen,Urine Negative ng/ml (<300)
[2022-01-05 19:50] LABS: Methadone Screen,Urine Negative ng/ml (<300); Opiate Screen,Urine Negative ng/ml (<300)
[2022-01-05 19:51] LABS: Phencyclidine Screen,Urine Negative ng/ml (<25)
[2022-01-05 20:01] VITALS: BP 151/91; PULSE 72; O2SAT 95
[2022-01-05 20:16] VITALS: BP 135/78; PULSE 75; RESP 18; TEMP 37.1; O2SAT 96
== END 2022-01-05 20:19 | disposition home or self-care (01) ==
PROVIDERS: Emergency Provider Emergency Medicine; PCP Nurse Practitioner Family
DX: R55 Syncope and collapse (principal); T40.495A Adverse effect of other synthetic narcotics, initial encounter; V47.0XXA Car driver injured in collision with fixed or stationary object in nontraffic accident, initial encounter; Y92.488 Other paved roadways as the place of occurrence of the external cause
CPT/HCPCS: 70450; 71046; 72125; 80053; 80305; 81001; 84484; 85025; 93005; 96365; 99283; J1956

== ENCOUNTER → 2022-03-08 20:09 | Outpatient (CLI) | payer MEDICAID, SELFPAY | PROVIDERS: PCP Nurse Practitioner Family; Visit Provider Specialist | DX: G47.30 Sleep apnea, unspecified (principal); R06.83 Snoring; J44.9 Chronic obstructive pulmonary disease, unspecified | CPT/HCPCS: 95810 ==

== ENCOUNTER 2022-03-10 10:32 | Day surgery (SDC) | payer MEDICAID, SELFPAY ==
[2022-03-10 10:36] VITALS: BP 126/46; PULSE 71; RESP 18
[2022-03-10 10:50] VITALS: BP 117/75; PULSE 77; RESP 18; TEMP 36.3; O2SAT 97; BMI 29.8
[2022-03-10 11:06] VITALS: BP 126/46; PULSE 71; RESP 18; O2SAT 96
--- NOTE | 2022-03-10 11:08 | P.PCN_ITS ---
- Procedure Date: 03/10/22 Time: 11:08 Anesthesiologist:: Per Wagoner CRNA Complications:: None Pre-procedure Diagnosis:: Degenerative disc disease lumbar spine. Lumbar facet arthropathy bilaterally. Post-procedure Diagnosis:: Same Indications for Procedure:: This patient is a pleasant 51-year-old white female that presents to our injection clinic today for bilateral lumbar medial branch block L4-5, L5-S1. Patient describes her low back pain is constant, dull, aching. She reports pain increases when standing for any length of time. Pain increases when sitting for any length of time. She rates the pain 8/10 today. Procedure Details:: Informed consent was obtained and the risk and benefits of the procedure was explained to the patient. Patient was taken to the procedure room where noninvasive monitors were placed, including noninvasive blood pressure cuff as well as pulse oximeter. The area over the lumbar spine was cleansed using chlorhexidine as a cleansing solution. I anesthetized the skin and subcutaneous tissues with 1% Lidocaine. I placed 22-gauge spinal needles into the facet joint/ medial branches of L4-L5, and L5-S1] bilaterally. Needle placement was confirmed with fluoroscopy. After confirmation of needle placement, each site was injected with 1 mL of 1% lidocaine and 0.25 % Marcaine and 10 mg of Depo- Medrol. A total of 80 mg of depo medrol was used for bilateral medial branch blocks of, L4-L5, and L5-S1] bilaterally. Patient tolerated the procedure without difficulty. There were no complications. Plan and Disposition:: Patient was reevaluated 10 minutes post procedure. She reports moderate to significant improvement terms of her lumbar back pain in flexion, extension, right and left rotation.
[2022-03-10 11:09] VITALS: BP 121/55; PULSE 76; RESP 20; O2SAT 97
== END 2022-03-10 11:10 | disposition home or self-care (01) ==
LOC: SC.PAINP 10:33
PROVIDERS: PCP Nurse Practitioner Family; Visit Provider Nurse Anesthetist, Certified Registered
DX: M51.36 Other intervertebral disc degeneration, lumbar region (principal); M47.816 Spondylosis without myelopathy or radiculopathy, lumbar region; E78.5 Hyperlipidemia, unspecified; J45.909 Unspecified asthma, uncomplicated; J44.9 Chronic obstructive pulmonary disease, unspecified; F32.A Depression, unspecified; I10 Essential (primary) hypertension; M19.90 Unspecified osteoarthritis, unspecified site; E07.9 Disorder of thyroid, unspecified; Z72.0 Tobacco use
CPT/HCPCS: 64493; 64494; J1040

== ENCOUNTER → 2022-05-01 10:20 | Outpatient (POV) | payer MEDICAID, SELFPAY ==
[2022-05-01 10:49] VITALS: BP 130/76; PULSE 96; RESP 18; TEMP 36.4; O2SAT 96; BMI 29.6
--- NOTE | 2022-05-01 12:40 | HMH.PAINSOAP ---
[facility] Pain Management SOAP Note Subjective:: Patient is a pleasant 52-year-old female who presents today for follow-up after a diagnostic medial branch block injection at L4-L5 and L5-S1 bilaterally on 03/10/2023. Patient is currently being treated for degenerative disc disease of the lumbar spine, lumbar facet arthropathy, lumbar radiculopathy symptoms, lumbar spondylosis. After the procedure, patient had significant relief for 4 days of about 70 to 80%. She rates her pain today as 8 out of 10. In the past, we have tried epidural steroid injection on this patient that provided 2 to 3 weeks of relief. We have tried to get this patient approved for a spinal cord stimulator or intrathecal pain pump. However, she was deemed inappropriate to get the implants after her psychological evaluation. Patient endorses a history of illicit drug use with CBD, marijuana, cocaine, tranquilizers/sleeping pills, and alcohol. Today, patient states that she has been clean for about 5 months. She continues to go to an outpatient rehab in [place]. She wants to try the psych eval again for the SCS therapy. Additionally, she says that the epidural injection provided better relief for her. She wants to schedule a repeat injection. Review of Systems: General: No recent weight changes, no fever, no sleep disturbances Respiratory: No cough, no shortness of air, no recurring pulmonary infections Cardiovascular/peripheral vascular: No chest pain, no palpitations, no edema, no shortness of breath Gastrointestinal: No new onset incontinence, normal bowel movements reported Genitourinary: No new onset incontinence Musculoskeletal: Low back pain Psychiatric: [Normal mood/affect] Neurological: [Denies weakness in extremities], [denies balance issues] Objective:: Physical Exam: General: Alert and oriented x3, no acute distress, pleasant and cooperative, 3LO2 Lungs: Respirations even and unlabored, symmetrical chest expansion Eyes: PERRL Musculoskeletal: Flexion and extension of lumbar [spine] somewhat guarded secondary to pain, [antalgic gait noted] Neurological: Speech clear, no gross sensory deficit Assessment:: Degenerative disc disease of lumbar spine with lumbar radiculopathy symptoms, facet arthropathy, lumbar spondylosis Plan:: We will schedule the patient for a lumbar epidural steroid injection at L4-L5. Risks and benefits of the procedure have been explained to the patient. Patient would like to proceed with the procedure. We will try to refer the patient again for a psych evaluation for SCS Therapy. I discussed with her that would be beneficial for her to get a letter from the social sciences department chair where she is doing outpatient rehab how she is doing. This way, the psychiatrist/psychologist who will evaluate her will have a better picture of how she is doing with her rehab. Patient has been instructed to contact the clinic with any concerns before the next appointment. Dr. Sethi has reviewed this note and agrees with this plan of care. This note was dictated using voice recognition software and make contain errors or omissions. [facility] History Medical History: Reports:: Asthma, Cancer, Chronic Obstructive Pulmonary Disease (COPD), Depression, Hyperlipidemia, Hypertension, Lung Disease Denies:: Diabetes Mellitus Type 1, Diabetes Mellitus Type 2, MRSA, Seizures *Have you ever received a pneumonia vaccine?: No *Have you received a flu vaccine this season?: No Other Medical History: Reports: Arthritis, Fibromyalgia, Thyroid Disease. Denies: Blood Transfusion Reaction Other Surgeries: Yes: Cancer Surgery, Colonoscopy, Hysterectomy-Total, Hysterectomy-Partial, Sinus Surgery, ThyroidectomyComment Only: Other (cone biopsy) Amputation: No Fractures: No - *Social History Smoking Status: Current every day smoker Tobacco Type: cigarettes # Packs/Day (cigarettes): 1 Alcohol Intake: never Alcohol Intake Frequency:: holidays/special occasions only Substance Use Type: denies use
== END ==
PROVIDERS: Visit Provider Student in an Organized Health Care Education/Training Program
DX: M51.16 Intervertebral disc disorders with radiculopathy, lumbar region (principal); M47.26 Other spondylosis with radiculopathy, lumbar region; M19.90 Unspecified osteoarthritis, unspecified site
CPT/HCPCS: 99212; G0463

== ENCOUNTER 2022-05-05 10:49 | Day surgery (SDC) | payer MEDICAID, SELFPAY ==
[2022-05-05 11:08] VITALS: BP 126/76; PULSE 88; RESP 20; TEMP 36.1; O2SAT 98; BMI 30.2
[2022-05-05 11:36] VITALS: BP 139/74; PULSE 80; RESP 18; O2SAT 98
[2022-05-05 11:38] VITALS: BP 117/66; PULSE 77; RESP 19; O2SAT 96
--- NOTE | 2022-05-05 11:43 | HMH.PMPROC ---
- Procedure Date: 05/05/22 Time: 11:43 Anesthesiologist:: Per Wagoner CRNA Complications:: None Pre-procedure Diagnosis:: degenerative disc disease lumbar spine. Lumbar radiculopathy symptoms. Post-procedure Diagnosis:: Same Indications for Procedure:: This patient is a pleasant 52-year-old female who presents today for lumbar epidural steroid injection at the L4-5 level. Patient has had these injections in the past with some degree of relief. She rates her low back pain is 8/10. She also complains of bilateral radicular symptoms in the lower legs. Procedure Details:: Procedure: Lumbar epidural steroid injection under fluoroscopy Informed consent was obtained and the risks and benefits of the procedure were explained to the patient. The patient was taken to the procedure room and noninvasive monitors placed, including noninvasive blood pressure cuff and pulse oximeter. The back was viewed using C-arm Fluoroscopy and prepped using Betadine as a cleansing solution and the L4-L5 interspace was palpated. Skin and subcutaneous tissues were anesthetized using lidocaine 1.5% and a 25-gauge needle. After this, an 18-gauge Touhy epidural needle was placed into the L4-L5 interspace and advanced using fluoroscopic guidance and loss of resistance to air until the epidural space was encountered. After confirmation of needle placement in the epidural space, with dye, a solution containing lidocaine 1.5%, 4 mL and Depo-Medrol 80 mg were incrementally injected into the lumbar epidural space. The patient tolerated the procedure well with no complications. The patient was observed in the Pain Clinic and then discharged home neurologically intact. Plan and Disposition:: Patient was discharged without incident.
[2022-05-05 11:55] VITALS: BP 111/63; PULSE 72; RESP 20; O2SAT 95
== END 2022-05-05 11:56 | disposition home or self-care (01) ==
LOC: SC.PAINP 10:51
PROVIDERS: PCP Nurse Practitioner Family; Visit Provider Nurse Anesthetist, Certified Registered
DX: M51.16 Intervertebral disc disorders with radiculopathy, lumbar region (principal)
CPT/HCPCS: 62323; J1040

== ENCOUNTER → 2022-05-18 11:35 | Outpatient (POV) | payer MEDICAID, SELFPAY ==
[2022-05-18 11:56] VITALS: BP 147/76; PULSE 85; RESP 20; O2SAT 95; BMI 30.2
--- NOTE | 2022-05-18 12:59 | HMH.PAINSOAP ---
[facility] Pain Management SOAP Note Subjective:: Patient is a pleasant 52-year-old female who presents today for follow-up after a lumbar epidural steroid injection at L4-L5. Patient is currently being treated for degenerative disc disease of the lumbar spine with lumbar facet arthropathy, lumbar radiculopathy, lumbar spondylosis. After this procedure, patient had minimal relief of symptoms. In the past, patient had significant relief after a lumbar epidural steroid injection that lasted for at least 2 weeks. More recently, we tried a diagnostic medial branch block at L4-L5 and L5-S1 bilaterally on 03/10/2022 that provided the patient 70 to 80% relief for 4 days. Rates her pain today as 6 out of 10. In the past, we have tried epidural steroid injection on this patient that provided 2 to 3 weeks of relief. We have tried to get this patient approved for a spinal cord stimulator or intrathecal pain pump. However, she was deemed inappropriate to get the implants after her psychological evaluation. Patient endorses a history of illicit drug use with CBD, marijuana, cocaine, tranquilizers/sleeping pills, and alcohol. She states that she started abusing drugs when she lost her . Today, patient states that she has been clean for about 6 months. She continues to go to an outpatient rehab in [place]. She wants to try the psych eval again for the SCS therapy. She also received a letter from her outpatient rehab facility stating that she is compliant with her care. Review of Systems: General: No recent weight changes, no fever, no sleep disturbances Respiratory: No cough, no shortness of air, no recurring pulmonary infections Cardiovascular/peripheral vascular: No chest pain, no palpitations, no edema, no shortness of breath Gastrointestinal: No new onset incontinence, normal bowel movements reported Genitourinary: No new onset incontinence Musculoskeletal: Low back pain Psychiatric: [Normal mood/affect] Neurological: [Denies weakness in extremities], [denies balance issues] Objective:: Physical Exam: General: Alert and oriented x3, no acute distress, pleasant and cooperative Lungs: Respirations even and unlabored, symmetrical chest expansion Eyes: PERRL Musculoskeletal: Flexion and extension of lumbar [spine] somewhat guarded secondary to pain, [antalgic gait noted] Neurological: Speech clear, no gross sensory deficit Assessment:: Degenerative disease of lumbar spine with lumbar radiculopathy symptoms, lumbar facet arthropathy, lumbar spondylosis Plan:: Patient had minimal relief after the lumbar epidural steroid injection. Patient had more relief with the medial branch block injection. We will schedule the patient for another diagnostic medial branch block/facet injection bilaterally at L4-L5 and L5-S1. Patient is not on any blood thinners. If the patient gets significant relief from this injection, we will schedule the patient for a lumbar RFA. We will send that patient for another psychiatric evaluation for SCS therapy. I do believe that the patient would be appropriate for this system even with her substance abuse history. This is a non-opiate system. Patient has been instructed to contact the clinic with any concerns before the next appointment. Dr. Sethi has reviewed this note and agrees with this plan of care. This note was dictated using voice recognition software and make contain errors or omissions. [facility] History Medical History: Reports:: Asthma, Cancer, Chronic Obstructive Pulmonary Disease (COPD), Depression, Hyperlipidemia, Hypertension, Lung Disease Denies:: Diabetes Mellitus Type 1, Diabetes Mellitus Type 2, MRSA, Seizures *Have you ever received a pneumonia vaccine?: No *Have you received a flu vaccine this season?: No Other Medical History: Reports: Arthritis, Fibromyalgia, Thyroid Disease. Denies: Blood Transfusion Reaction Other Surgeries: Yes: Cancer Surgery, Colonoscopy, Hysterectomy-Total, Hysterectomy-Partial, Sinus Surgery, Thy
== END ==
PROVIDERS: Visit Provider Student in an Organized Health Care Education/Training Program
DX: M51.16 Intervertebral disc disorders with radiculopathy, lumbar region (principal); M47.26 Other spondylosis with radiculopathy, lumbar region; M19.90 Unspecified osteoarthritis, unspecified site; Z72.0 Tobacco use
CPT/HCPCS: 99212; G0463

== ENCOUNTER 2022-05-26 11:13 | Day surgery (SDC) | payer MEDICAID, SELFPAY ==
[2022-05-26 11:52] VITALS: BP 150/91; PULSE 102; RESP 18; TEMP 36.8; O2SAT 95; BMI 30.4
[2022-05-26 12:52] VITALS: BP 115/74; PULSE 85; RESP 18; O2SAT 98
[2022-05-26 12:53] VITALS: BP 116/74; PULSE 72; RESP 18
[2022-05-26 12:55] VITALS: BP 143/90; PULSE 83; RESP 20; O2SAT 97
--- NOTE | 2022-05-26 12:55 | HMH.PMPROC ---
- Procedure Date: 05/26/22 Time: 12:55 Anesthesiologist:: Williams Sethi MD Complications:: None Pre-procedure Diagnosis:: Degenerative disc disease of lumbar spine with lumbar spondylosis and lumbar facet arthropathy Post-procedure Diagnosis:: Same Indications for Procedure:: This patient is a pleasant 52-year-old white female who we are treating for low back pain with lumbar spondylosis and lumbar facet arthropathy. She did well from a previous lumbar epidural steroid injection and had 70 to 80% relief for 4 days after previous bilateral lumbar medial branch blocks at L4-5 and L5-S1. She presents for repeat bilateral lumbar medial branch blocks today to see if this will help with her pain symptoms. Procedure Details:: Lumbar medial branch block Informed consent was obtained and the risks and benefits of the procedure was explained to the patient. The back was prepped using ChloraPrep. The skin and subcutaneous tissues were anesthetized using lidocaine. I placed 22-gauge spinal needles into the facet joint/medial branches of L4-L5 and L5-S1 bilaterally. Needle placement was confirmed with dye. After this we injected 3 mL bupivacaine 0.25% and Depo-Medrol 20 mg into each facet joint/medial branch of L4-L5 and L5-S1 bilaterally. We used a total of 80 mg Depo-Medrol for both levels bilaterally. The patient tolerated the procedure well with no complications. Plan and Disposition:: We will follow-up with her in 2 weeks. Will reevaluate symptoms at that time.
== END 2022-05-26 12:56 | disposition home or self-care (01) ==
LOC: SC.PAINP 11:15
PROVIDERS: PCP Emergency Medicine; Visit Provider Anesthesiology
DX: M51.86 Other intervertebral disc disorders, lumbar region (principal); M47.816 Spondylosis without myelopathy or radiculopathy, lumbar region
CPT/HCPCS: 64493; J1030; Q9966

== ENCOUNTER → 2022-06-15 14:07 | Outpatient (POV) | payer MEDICAID, SELFPAY ==
--- NOTE | 2022-06-15 14:29 | HMH.PAINSOAP ---
[facility] Pain Management SOAP Note Subjective:: Patient is a pleasant 52-year-old male who presents today for follow-up. We are currently treating the patient for degenerative disc disease of lumbar spine with lumbar spondylosis and lumbar facet arthropathy. Had a second medial branch block of her lumbar spine at L4-L5 and L5-S1 on May 26, 2022. Patient states that she had significant relief however it only lasted less than 24 hours. Today she rates her pain a 6 out of 10. She describes the pain at her low back and describes it as a sharp aching sensation that is worse with activity. She has tried using topical [id number] creams with minimal relief. Patient has also had physical therapy in the past and stated this did give significant improvement. She also takes Lyrica which does help manage her pain. She states the weather really affects her low back pain. Patient is prescribed the Lyrica with Dr. Nichole. Patient would like to schedule the ablation. Her Bruno is [id number]. It has been reviewed and is appropriate. We are currently trying to get a spinal cord stimulator or intrathecal pain pump approved for this patient. She did have her psychiatric evaluation however she was determined not an appropriate candidate based off a history of illicit drug use and alcohol. Patient had previously stated that she started abusing medications when she lost her . She states she has been clean for about 7 months. She sees outpatient rehab in [place]. She would still like to continue to try and get approval for the stimulator. At a previous visit we have received a letter from her outpatient rehab facility stating she is compliant with her care. Review of Systems: General: No recent weight changes, no fever, no sleep disturbances Respiratory: No cough, no shortness of air, no recurring pulmonary infections Cardiovascular/peripheral vascular: No chest pain, no palpitations, no edema, no shortness of breath Gastrointestinal: No new onset incontinence, normal bowel movements reported Genitourinary: No new onset incontinence Musculoskeletal: Back pain Psychiatric: [Normal mood/affect] Neurological: [Denies weakness in extremities], [denies balance issues] Objective:: Physical Exam: General: Alert and oriented x3, no acute distress, pleasant and cooperative Lungs: Respirations even and unlabored, symmetrical chest expansion Eyes: PERRL Musculoskeletal: Flexion and extension of lumbar [spine] somewhat guarded secondary to pain, [antalgic gait noted] Neurological: Speech clear, no gross sensory deficit Assessment:: Degenerative disc disease of lumbar spine with lumbar radiculopathy symptoms lumbar facet arthropathy, lumbar spondylosis Plan:: Patient has had relief from her previous medial branch blocks. She states her last injection she got less than 24 hours relief however. She states that she had significant relief when she had a lumbar epidural steroid injection that lasted 2 weeks in the past. She stated that she has not had any long-term relief like that since. I have counseled the patient that she may or may not get relief from a RFA of her lumbar spine. Risk and benefits were discussed with the patient. the patient would like to proceed forward with this procedure. I will order updated MRI imaging of her lumbar spine at today's visit. I will also order the patient for physical therapy and compounding cream. We will schedule the patient for a RF a of her lumbar spine at L4-L5, L5-S1. We will continue to work on getting the spinal cord stimulator approved through insurance. Patient has been instructed to contact the clinic with any concerns before the next appointment. Dr. Sethi has reviewed this note and agrees with this plan of care. This note was dictated using voice recognition software and make contain errors or omissions. [facility] History I have reviewed the patient's past medical history: Yes Medical History: Reports:: Asthma, Cance
[2022-06-15 14:53] VITALS: BP 118/64; PULSE 86; RESP 20; TEMP 36.4; O2SAT 97; BMI 32.1
== END ==
PROVIDERS: Visit Provider Student in an Organized Health Care Education/Training Program
DX: M51.16 Intervertebral disc disorders with radiculopathy, lumbar region (principal); M47.26 Other spondylosis with radiculopathy, lumbar region
CPT/HCPCS: 99212; G0463

== ENCOUNTER → 2022-08-30 09:21 | Outpatient (POV) | payer MEDICAID, SELFPAY ==
[2022-08-30 09:31] VITALS: BP 138/74; PULSE 82; RESP 18; TEMP 36.2; O2SAT 96; BMI 31.1
--- NOTE | 2022-08-30 09:43 | EXP.PAIN.SOA ---
[facility] Pain Management SOAP Note Subjective:: Patient is a pleasant 52-year-old female who presents today for follow-up of insurance denial of a RFA of her lumbar spine. We are currently treating the patient for degenerative disc disease of lumbar spine with lumbar spondylosis lumbar facet arthropathy and sacroiliitis. Today the patient rates her pain a 5 out of 10. She denies any new trauma or injury. She denies any change in location or type of pain she experiences. Patient describes this as a aching, throbbing sensation with occasional sharp pains that is worsened with increased activity. She states this does affect her ability to do ADLs such as sweeping mopping, cooking, standing for long periods of time. Patient has had multiple injections that provided significant improvement of her symptoms. Her last injection was a medial branch block L4-L5 and L5-S1 on 06/16 that provided 70 to 80% relief. Patient is still interested in proceeding forward with the radiofrequency ablation of her lumbar spine. Patient has tried [id number] Tylenol and ibuprofen with no improvement of her symptoms. She is also tried [id number]-[id number] creams with minimal relief. Patient has had physical therapy in the past that gave her some improvement of her symptoms. Patient currently is managed with Lyrica 100 mg 4 times a day by Dr. Nichole. Patient denies any side effects from this medication. She states this medication does help manage her pain symptoms. Patient does continue to try to do at home exercising and stretching techniques however she is limited on how frequently she can do these exercises due to the pain she has. Her Bruno is [id number]. It has been reviewed and appropriate. Injections: Bilateral SI?11/2020 LESI L4-L5?01/2021 LESI L5-S1?05/2021 MBB L4-L5, L5-S1?02/2022 LESI?04/2022 MBB L4-L5, L5-S1?05/2022 Review of Systems: General: No recent weight changes, no fever, no sleep disturbances Respiratory: No cough, no shortness of air, no recurring pulmonary infections Cardiovascular/peripheral vascular: No chest pain, no palpitations, no edema, no shortness of breath Gastrointestinal: No new onset incontinence, normal bowel movements reported Genitourinary: No new onset incontinence Musculoskeletal: Low back pain Psychiatric: [Normal mood/affect] Neurological: [Denies weakness in extremities], [denies balance issues] Objective:: Physical Exam: General: Alert and oriented x3, no acute distress, pleasant and cooperative Lungs: Respirations even and unlabored, symmetrical chest expansion Eyes: PERRL Musculoskeletal: Flexion and extension of lumbar [spine] somewhat guarded secondary to pain, [antalgic gait noted] Neurological: Speech clear, no gross sensory deficit Assessment:: Degenerative disc disease of lumbar spine with lumbar spondylosis, lumbar facet arthropathy, sacroiliitis Plan:: Patient continues to have significant pain in her low back. Patient did have limited range of motion of her lumbar spine during today's visit. I have discussed with the patient regarding proceeding forward with a radiofrequency ablation of her lumbar spine. Risk and benefits were discussed with the patient. She would like to proceed forward with this injections. On the patient's last medial branch block injection she did have 70 to 80% relief of her pain symptoms following the procedure. I have also counseled the patient regarding a physical therapy referral which I will order at today's visit. Patient is requesting for the [facility] location. Patient has tried and failed oral medications, physical therapy, topical medications, heat and ice, at home exercising and stretching for longer than 6 weeks. We will schedule the patient for a lumbar RFA at L4-L5 and L5-S1. Patient has been instructed to contact the clinic with any concerns before the next appointment. Dr. Sethi has reviewed this note and agrees with this plan of care. This note was dictated using voice recognition software
== END ==
PROVIDERS: PCP Emergency Medicine; Visit Provider Nurse Practitioner Family
DX: M51.16 Intervertebral disc disorders with radiculopathy, lumbar region (principal); M47.26 Other spondylosis with radiculopathy, lumbar region; M46.1 Sacroiliitis, not elsewhere classified
CPT/HCPCS: 99212; G0463

== ENCOUNTER → 2022-10-25 11:40 | Outpatient (POV) | payer MEDICAID, SELFPAY ==
[2022-10-25 12:01] VITALS: BP 136/76; PULSE 83; RESP 18; O2SAT 94; BMI 30.8
--- NOTE | 2022-10-25 12:07 | EXP.PAIN.SOA ---
[facility] Pain Management SOAP Note Subjective:: Patient is a pleasant 52-year-old female who presents today for RFA denial. We are currently treating the patient for degenerative disc disease of lumbar spine with lumbar spondylosis and lumbar facet arthropathy, sacroiliitis. Today she rates her pain a 5 out of 10. Patient denies any new trauma or injury. Patient denies any change location or type of pain she experiences. Patient does state the pain is all in her low back and describes it as a aching, throbbing sensation with occasional sharp pains that is worsened with increased activity or range of motion. Patient does state this affects her ability to perform activities of daily living such as sweeping, mopping, cooking, standing for long periods of time. Patient has had medial branch blocks in the past that provided 70 to 80% relief however only lasting short-term. Patient has tried Tylenol and ibuprofen with no improvement of her symptoms. She is also used heat and ice and topical creams. Patient has been to physical therapy in the past and it did provide improvement. Patient is currently managed with pregabalin 100 mg 4 times a day. Patient patient denies any side effects from this medication. She states this medication does help her pain symptoms. She is requesting a refill at today's visit. Patient is O2 dependent. Patient is also on Suboxone therapy from [facility] and she states that she is weaning herself off of this medication with the help of her provider. Her Bruno is [id number]. It has been reviewed and appropriate. Review of Systems: General: No recent weight changes, no fever, no sleep disturbances Respiratory: No cough, no shortness of air, no recurring pulmonary infections Cardiovascular/peripheral vascular: No chest pain, no palpitations, no edema, no shortness of breath Gastrointestinal: No new onset incontinence, normal bowel movements reported Genitourinary: No new onset incontinence Musculoskeletal: Low back pain Psychiatric: [Normal mood/affect] Neurological: [Denies weakness in extremities], [denies balance issues] Objective:: Physical Exam: General: Alert and oriented x3, no acute distress, pleasant and cooperative Lungs: Respirations even and unlabored, symmetrical chest expansion Eyes: PERRL Musculoskeletal: Flexion and extension of lumbar [spine] somewhat guarded secondary to pain, [antalgic gait noted] Neurological: Speech clear, no gross sensory deficit Assessment:: Degenerative disc disease of lumbar spine with lumbar spondylosis, lumbar facet arthropathy and sacroiliitis Plan:: Patient is experiencing significant pain in her low back with limited range of motion of her lumbar spine during today's visit. I will send the patient for a physical therapy referral at today's visit. I will also contact Dr. Nichole's office who had been prescribing this patient pregabalin 100 mg 4 times a day and verify if they are wanting us to take over this medication. I will send in a prescription of pregabalin 100 mg 4 times a day and provide 1 month supply of this medication. We will plan to proceed forward with the lumbar RFA in the future. Patient will return to clinic in 1 month for reevaluation of symptoms and follow-up. Patient has been instructed to contact the clinic with any concerns before the next appointment. Dr. Sethi has reviewed this note and agrees with this plan of care. This note was dictated using voice recognition software and make contain errors or omissions. [facility] Disclaimer: The information contained in this section may have been updated after the patient was seen, as this information can be updated by other users. Medical History (Updated 08/21/22 @ 18:40 by Klarissa Suazo APRN) Asthma Cancer COPD (chronic obstructive pulmonary disease) History of hypertension Hyperlipidemia Surgical History (Updated 08/21/22 @ 10:35 by ZECHARIAH Means) H/O thyroidectomy H/O total hysterectomy History
== END | disposition home or self-care (01) ==
PROVIDERS: PCP Emergency Medicine; Visit Provider Nurse Practitioner Family
DX: M51.36 Other intervertebral disc degeneration, lumbar region (principal); M47.816 Spondylosis without myelopathy or radiculopathy, lumbar region; M46.1 Sacroiliitis, not elsewhere classified
CPT/HCPCS: 99212; G0463

== ENCOUNTER → 2022-11-23 09:49 | Outpatient (POV) | payer MEDICAID, SELFPAY ==
[2022-11-23 10:00] VITALS: BP 138/69; PULSE 84; RESP 19; O2SAT 96; BMI 30.8
--- NOTE | 2022-11-23 10:26 | EXP.PAIN.SOA ---
[facility] Pain Management SOAP Note Subjective:: Patient is a pleasant 52-year-old female who presents today for follow-up. We are currently treating the patient for degenerative disc disease of lumbar spine with lumbar radiculopathy symptoms, lumbar spondylosis, lumbar facet arthropathy, sacroiliitis. Today the patient rates her pain a 4 out of 10. Patient denies any new trauma or injury. Patient denies any change location or type of pain she experiences. Patient states her pain continues to be in her low back and describes it as a aching, throbbing sensation that is worse with increased activity. Patient is limited on her ability to perform activities of daily living such as sweeping, mopping, cooking, standing for long periods of time. Patient has had multiple medial branch blocks in the past that provided significant improvement of upwards of 80%. Patient was last denied for a lumbar RFA due to needing to complete physical therapy. Patient states that she has gone once however she did come down with an illness and has told them that she will start back the first of the year. Patient is currently managed with pregabalin 100 mg 4 times a day patient denies any side effects from this medication. Patient states this medication does help her pain symptoms. Patient is also on Suboxone therapy and previously stated she was trying to wean herself off however at today's visit she states that she is just back on her regular dose of 2 mg. Her Bruno is [id number]. It is been reviewed and appropriate. Review of Systems: General: No recent weight changes, no fever, no sleep disturbances Respiratory: No cough, no shortness of air, no recurring pulmonary infections Cardiovascular/peripheral vascular: No chest pain, no palpitations, no edema, no shortness of breath Gastrointestinal: No new onset incontinence, normal bowel movements reported Genitourinary: No new onset incontinence Musculoskeletal: Low back pain Psychiatric: [Normal mood/affect] Neurological: [Denies weakness in extremities], [denies balance issues] Objective:: Physical Exam: General: Alert and oriented x3, no acute distress, pleasant and cooperative Lungs: Respirations even and unlabored, symmetrical chest expansion Eyes: PERRL Musculoskeletal: Flexion and extension of lumbar [spine] somewhat guarded secondary to pain, [antalgic gait noted] Neurological: Speech clear, no gross sensory deficit Assessment:: Degenerative disc disease of lumbar spine with lumbar radiculopathy symptoms, lumbar spondylosis, lumbar facet arthropathy, sacroiliitis Plan:: Patient continues to experience significant pain in her low back. I have discussed with the patient that we will resubmit to insurance for a lumbar RFA once she has completed her physical therapy. I will send in a refill of the patient's pregabalin 100 mg 4 times a day and provide a 2-month supply of this medication. Patient will return to clinic in December for reevaluation of symptoms, medication refill and follow-up. Patient has been instructed to contact the clinic with any concerns before the next appointment. Dr. Sethi has reviewed this note and agrees with this plan of care. This note was dictated using voice recognition software and make contain errors or omissions. [facility] Disclaimer: The information contained in this section may have been updated after the patient was seen, as this information can be updated by other users. Medical History Asthma Cancer COPD (chronic obstructive pulmonary disease) History of hypertension Hyperlipidemia Surgical History H/O thyroidectomy H/O total hysterectomy History of cancer surgery Social History Smoking Status: Current every day smoker tobacco type: cigarettes packs per day: 1 alcohol intake: never substance use type: denies
== END | disposition home or self-care (01) ==
PROVIDERS: PCP Emergency Medicine; Visit Provider Nurse Practitioner Family
DX: M51.16 Intervertebral disc disorders with radiculopathy, lumbar region (principal); M47.26 Other spondylosis with radiculopathy, lumbar region; M46.1 Sacroiliitis, not elsewhere classified; F17.210 Nicotine dependence, cigarettes, uncomplicated; Z79.899 Other long term (current) drug therapy
CPT/HCPCS: 99212; G0463

== ENCOUNTER → 2023-01-08 10:10 | Outpatient (POV) | payer MEDICAID, SELFPAY ==
--- NOTE | 2023-01-08 11:44 | EXP.PAIN.SOA ---
[facility] Pain Management SOAP Note Subjective:: Patient is a pleasant 53-year-old female who presents today for follow-up. We are currently treating the patient for degenerative disc disease of lumbar spine with lumbar radiculopathy symptoms, lumbar spondylosis, lumbar facet arthropathy, sacroiliitis. Today the patient rates her pain a 5 out of 10. Patient denies any new trauma or injury. Patient denies any change to the location or type of pain that she experiences. Patient is currently going to physical therapy which she says has provided some additional improvement. Patient continues to state her low back causes significant pain of an aching, throbbing sensation that is worse with increased activity. Patient was denied for a lumbar RFA due to lack of physical therapy for more than 6 weeks. Patient states she has increased her activity and she uses a stationary bike 15 minutes a day. Patient is currently managed with compounding cream, pregabalin 100 mg 4 times a day and Suboxone therapy. Patient denies any side effects from these medications. At her last visit we did prescribe the pregabalin however during today's visit she states that she thinks Dr. Nichole is still planning on continuing this medication. Her Bruno is [id number]. Its been reviewed and appropriate. Review of Systems: General: No recent weight changes, no fever, no sleep disturbances Respiratory: No cough, no shortness of air, no recurring pulmonary infections Cardiovascular/peripheral vascular: No chest pain, no palpitations, no edema, no shortness of breath Gastrointestinal: No new onset incontinence, normal bowel movements reported Genitourinary: No new onset incontinence Musculoskeletal: Low back pain Psychiatric: [Normal mood/affect] Neurological: [Denies weakness in extremities], [denies balance issues] Objective:: Physical Exam: General: Alert and oriented x3, no acute distress, pleasant and cooperative Lungs: Respirations even and unlabored, symmetrical chest expansion Eyes: PERRL Musculoskeletal: Flexion and extension of lumbar [spine] somewhat guarded secondary to pain, [antalgic gait noted] Neurological: Speech clear, no gross sensory deficit ORT score updated with high risk Personal history of alcohol abuse and illegal drug use Personal history of depression Assessment:: Degenerative disc disease of lumbar spine with lumbar radiculopathy symptoms, lumbar spondylosis, lumbar facet arthropathy, sacroiliitis Plan:: Patient continues to experience significant pain in her low back with limited range of motion. At this time the patient will continue to do her physical therapy with the plan to resubmit to insurance for the lumbar RFA once she has completed 6 weeks of treatment. Patient states she will contact our office if she does need us to send in her next pregabalin refill or if Dr. Nichole is keeping this prescription. Patient will return to clinic in 2 months for reevaluation of symptoms and plan of care. Patient has been instructed to contact the clinic with any concerns before the next appointment. Dr. Sethi has reviewed this note and agrees with this plan of care. This note was dictated using voice recognition software and make contain errors or omissions. [facility] Disclaimer: The information contained in this section may have been updated after the patient was seen, as this information can be updated by other users. Medical History Asthma Cancer COPD (chronic obstructive pulmonary disease) History of hypertension Hyperlipidemia Surgical History H/O thyroidectomy H/O total hysterectomy History of cancer surgery Social History Smoking Status: Current every day smoker tobacco type: cigarettes packs per day: 1 alcohol intake: never substance use type: denies use current occupational status
[2023-01-08 12:15] VITALS: BP 115/47; PULSE 77; RESP 18; O2SAT 96; BMI 30.9
== END ==
PROVIDERS: PCP Emergency Medicine; Visit Provider Nurse Practitioner Family
DX: M51.16 Intervertebral disc disorders with radiculopathy, lumbar region (principal); M47.26 Other spondylosis with radiculopathy, lumbar region; M46.1 Sacroiliitis, not elsewhere classified
CPT/HCPCS: 99212; G0463

== ENCOUNTER 2023-01-23 11:00 | Outpatient (RCR) | payer MEDICAID, SELFPAY ==
--- NOTE | 2022-11-08 09:47 | HMH.PTOPEV ---
PT Outpatient Evaluation Rehab PT Outpatient Evaluation Start: 11/08/22 08:09 Freq: Status: Active Protocol: Document 11/08/22 08:09 PDESERJUSTICE (Rec: 11/08/22 09:47 PDESEROUX [id number]) E-signed By Per Chandra, PT Outpatient Therapy Subjective History Subjective History Pt. is a 52 year old female whom presents to [facility] Outpatient Physical Therapy Services in [place] for the initial evaluation this date( 11/08/22) w/ c/o chronic and constant LB and BLE(L>R) P!, neurlagia, and activity limitations of insidious onset that has been progressively worsening for the last two years. Pt. reports the LB and LLE P! is constant w/ intermittent RLE P!. Pt. reports symptoms worsen w/ prolong standing and ambulating, leaning forward to wash her hair in the sink/ mopping/dishwashing, and going to [employer]. Pt. reports having symptom relief w/ sitting and using a MHP. Pt. also reports having symptom relief w/ previous Physical Therapy that treated LLE radicular symptoms in the past . Pt. reports having symptom relief for 2 weeks after having an epidural injection. Diagnostic imaging positive for osteoarthritis per pt. report. Pt. reports possibly having an ablation procedure performed for symptom relief if symptoms do not improve w/ Physical Therapy. Pt. reports having supplemental O2 for 2 years after being diagnosed w/ acute pneumonia. Pt. reports having a sleep study last night to determine wether or not if it is safe to progress to sleeping w/ a BiPaP rather than supplemental O2. Pt. RTMD for referring
== END 2023-01-25 15:50 | disposition home or self-care (01) ==
LOC: PT 11:00
PROVIDERS: PCP Emergency Medicine; Visit Provider Nurse Practitioner Family
DX: M54.50 Low back pain, unspecified (principal)
CPT/HCPCS: 97110; 97140; 97163; 97164

== ENCOUNTER 2023-02-01 11:59 | Emergency (ER) | payer MEDICAID, SELFPAY ==
[2023-02-01 12:03] VITALS: BP 152/78; PULSE 79; O2SAT 95
[2023-02-01 12:09] VITALS: BP 119/81; PULSE 77; O2SAT 98
[2023-02-01 12:15] VITALS: BP 152/79; PULSE 75; RESP 16; TEMP 36.5; O2SAT 95; BMI 31.1
--- NOTE | 2023-02-01 12:23 | ECG_ITS ---
APPROVED REPORT Exam: Resting ECG HR:76 bpm ECG Measurements Heart Rate 76 AXES WI 164 P 56 QRSd 80 QRS 55 QT 394 T 55 QTc 424 Conclusion SINUS RHYTHM LOW QRS VOLTAGE IN PRECORDIAL LEADS [QRS DEFLECTION < 1.0 mV IN CHEST LEADS] BORDERLINE ECG UNCONFIRMED REPORT Electronically signed by : Jared Anaya MD 02/02/2023 08:11:21
--- NOTE | 2023-02-01 12:28 | XR_ITS ---
FINAL REPORT CLINICAL HISTORY: shortness of air COMPARISON: Two-view chest 01/05/2022 FINDINGS: A single portable view of the chest was obtained. The heart size and pulmonary vascularity are within normal limits. The mediastinum is within normal limits. There is mild bibasilar atelectasis. The bony thorax is intact. IMPRESSION: Mild bibasilar atelectasis. Reviewed, Interpreted and Dictated by Roger Sanchez III, MD Transcribed by Zahira Joseph Authenticated and [facility]
--- NOTE | 2023-02-01 12:28 | HMH.EDGENADL ---
Discharge Plan Disposition Patient Disposition: Home, Self-Care Condition: Good Prescriptions Prescriptions: New azithromycin [Zithromax] 250 mg tablet 250 mg PO DAILY 4 Days Qty: 4 0RF Rx Instructions: start on day 2 of therapy prednisone 20 mg tablet 20 mg PO BID Qty: 10 0RF No Action hydroxyzine HCl 50 mg tablet 50 mg PO TID Trelegy Ellipta 100-62.5-25 mcg blister with device 1 inh IH DAILY trazodone 150 mg tablet 150 mg PO DAILY metformin 500 mg tablet 500 mg PO DAILY ondansetron HCl 8 mg tablet 8 mg PO DAILY PRN (Reason: Stomach Upset) Ozempic 0.25 mg or 0.5 mg(2 mg/1.5 mL) pen injector 1.25 mg SQ WEEKLY pravastatin 40 mg tablet 40 mg PO DAILY famotidine 40 mg tablet 40 mg PO DAILY diltiazem HCl 30 mg tablet 30 mg PO ONCE albuterol sulfate [ProAir HFA] 90 mcg/actuation HFA aerosol inhaler 1 puff inhalation DIRECTED PRN (Reason: BREATHING) triamcinolone acetonide [Kenalog] 40 mg/mL suspension 20 mg IJ ONCE Qty: 0.5 0RF lidocaine HCl 20 mg/mL (2 %) solution 20 mg IJ ONCE Qty: 1 0RF dexamethasone sodium phosphate 4 mg/mL solution 2 mg IJ ONCE Qty: 0.5 0RF bupivacaine (PF) [Marcaine (PF)] 0.5 % (5 mg/mL) solution 5 mg IJ ONCE Qty: 1 0RF melatonin 5 mg tablet 5 mg PO HS lidocaine-prilocaine 2.5-2.5 % cream 1 applic TP .COMPLEX Rx Instructions: 1 applic topical 5XDAY; buprenorphine-naloxone 2-0.5 mg film 1 film SL DAILY diclofenac sodium 75 mg tablet,delayed release (DR/EC) 75 mg PO DAILY aspirin 81 mg tablet,delayed release (DR/EC) 81 mg PO DAILY cetirizine 10 mg tablet 10 mg PO DAILY buspirone 10 MG tablet 10 mg PO BID montelukast 10 MG tablet 10 mg PO PM estradiol 0.5 MG tablet 0.5 mg PO DAILY paroxetine HCl 40 MG tablet 40 mg PO DAILY pantoprazole 40 mg tablet,delayed release (DR/EC) 40 mg PO DAILY pregabalin 100 mg capsule 100 mg PO QID MDD 400 Qty: 120 1RF Rx Instructions: 100 mg p.o. every morning, 100 mg at noon and 200 mg p.o. nightly Referrals Follow up/Referrals: Tutu Vance MD [Primary Care Provider] - See instructions Activity Restrictions/Add. Instructions Additional Instructions/Restrictions: Continue using inhalers as prescribed. Zithromax and prednisone as prescribed. Follow-up with your primary care provider, call today to make an appointment. Clinical Impressions Clinical Impression: Acute exacerbation of chronic obstructive pulmonary disease Instructions Patient Instructions: DI for Chronic Obstructive Pulmonary Disease Discharge ED Provider: Hector Greenwood General Adult HPI General Chief complaint: Shortness of Breath/Dyspnea Stated complaint: Phys referral, low O2 Time Seen by Provider: 02/01/23 12:52 Mode of Arrival: Ambulatory Source of Information: Patient Limitations: No Limitations Description of Symptoms (Recalled from ER Triage Doc. by RN): pt comes in with c/o tiredness, fatigue, shortness of air. pt was at her podiatry appt this afternoon they checked her O2 saturation and it was 87% per pt. pt then called her pcp who advised her to come to ER. pt does have COPD and is oxygen dependant, 4L per pt report. History of Present Illness HPI narrative: Patient states that she was at the foot doctor today seeing Dr. Oliver and her pulse ox was 87%. She says that Dr. Oliver freaked out , told her to call her primary care provider, who advised her to come the emergency department. Patient says for the past few days she has been fatigued with daytime sleepiness, increased shortness of breath. She has a chronic cough producing yellow sputum and says recently the phlegm amount has increased. She has had rhinorrhea and a hoarse voice and sore throat. She saw an ENT doctor a week ago and had a scope done and was told that her vocal cords were very inflamed. No med
[2023-02-01 12:30] VITALS: BP 138/70; PULSE 76; O2SAT 95
--- NOTE | 2023-02-01 12:36 | PC.NURSE ---
ambulated to the bathroom
--- NOTE | 2023-02-01 12:38 | PC.NURSE ---
RT at BS to collect ABG
[2023-02-01 12:45] LABS: Basophils # 0.2 K/mm3 (0-0.2); Basophils % 1.7 % (0.1-2.0); Eosinophils # 0.3 K/mm3 (0.0-0.4); Eosinophils % 2.7 % (0.1-12.0); Hematocrit 40.6 % (37.0-47.0); Hemoglobin 13.1 g/dL (12.2-16.2); Lymphocytes % 26.6 % (10-50); Mean Corpuscular HGB Conc 32.2 g/dL (31.8-35.4); Mean Corpuscular Hemoglobin 27.5 pg (27.0-31.2); Mean Corpuscular Volume 85.4 fl (81-99); Mean Platelet Volume 9.3 fl (7.4-10.4); Monocytes # 0.7 K/mm3 (0.1-1.0); Monocytes % 6.2 % (1.7-9.3); Neutrophils % 62.8 % (37.0-80.0); Platelet Count 248 K/mm3 (142-424); Red Blood Count 4.75 M/mm3 (4.20-5.40); Red Cell Distribution Width 14.6 % (11.5-17.5); White Blood Count 11.2 K/mm3 (4.8-10.8)
[2023-02-01 12:46] LABS: Chloride 102 mmol/L (98-107); Potassium 3.8 mmoL/L (3.5-5.1); Sodium 138 mmol/L (136-145)
[2023-02-01 12:48] LABS: Blood Urea Nitrogen 7 mg/dl (7-17); Creatinine Clearance Estimated 109 mL/min (50-200); Estimated Glomerular Filt Rate 87 ml/min (>60); GFR (African American) 106 ML/MIN (>60); Lactic Acid 1.5 mmol/L (0.7-2.1)
[2023-02-01 12:49] LABS: Alanine Aminotransferase 30 U/L (12-78); Albumin Level 4.3 g/dl (3.5-5.0); Albumin/Globulin Ratio 1.4 (1.1-1.8); Alkaline Phosphatase 100 U/L (38-126); Anion Gap 10.8 mEq/L (5-15); Aspartate Amino Transferase 43 U/L (14-36); Bilirubin,Total 0.3 mg/dl (0.2-1.3); Calcium 8.9 mg/dl (8.4-10.2); Carbon Dioxide 29 mmol/L (22.0-30.0); Glucose 108 mg/dl (74-100); Total Protein,Serum 7.3 g/dl (6.3-8.2)
[2023-02-01 12:55] LABS: ABG Base Excess 1.1 mmol/L (-2.4-2.3); ABG HCO3 26.2 mmhg (22.0-26.0); ABG Oxygen Saturation 94 % (90-100); ABG PCO2 45.3 mmhg (35.0-45.0); ABG PH 7.38 mmol/L (7.35-7.45); ABG PO2 69.1 mmhg (80-100); ABG TCO2 27.6 mmhg (23-27)
[2023-02-01 12:56] LABS: Coronavirus 19, PCR Not Detected (NotDetected); Influenza A, PCR Not Detected (NotDetected); Influenza B, PCR Not Detected (NotDetected)
[2023-02-01 12:59] LABS: Oxygen 3LPM %; Source R BRACHIAL
[2023-02-01 13:09] LABS: Troponin I < 0.01 ng/ml (0.00-0.034)
--- NOTE | 2023-02-01 14:00 | PC.NURSE ---
angei rounding on pt
--- NOTE | 2023-02-01 14:22 | PC.NURSE ---
surgery at bedside to take pt, zofran and fluids given before leaving floor
[2023-02-01 14:36] VITALS: BP 121/72; PULSE 79; RESP 16; TEMP 36.6; O2SAT 94
== END 2023-02-01 14:38 | disposition home or self-care (01) ==
PROVIDERS: Emergency Provider Emergency Medicine; PCP Emergency Medicine
DX: J44.1 Chronic obstructive pulmonary disease with (acute) exacerbation (principal); Z99.81 Dependence on supplemental oxygen; J45.909 Unspecified asthma, uncomplicated; I10 Essential (primary) hypertension; E78.5 Hyperlipidemia, unspecified; Z85.9 Personal history of malignant neoplasm, unspecified; Z90.710 Acquired absence of both cervix and uterus; Z90.09 Acquired absence of other part of head and neck; F17.210 Nicotine dependence, cigarettes, uncomplicated; Z20.822 Contact with and (suspected) exposure to COVID-19
CPT/HCPCS: 71045; 80053; 82803; 83605; 84484; 85025; 87040; 93005; 96374; 96375; 99285; C9803; J0456; J2405; U0003; U0005

== ENCOUNTER → 2023-03-08 09:59 | Outpatient (POV) | payer MEDICAID, SELFPAY ==
[2023-03-08 10:39] VITALS: BP 141/87; PULSE 90; RESP 20; O2SAT 95; BMI 30.9
--- NOTE | 2023-03-08 10:56 | EXP.PAIN.SOA ---
[facility] Pain Management SOAP Note Subjective:: Patient is a pleasant 53-year-old female who presents today for follow-up. We are currently treating the patient for degenerative disc disease of lumbar spine with lumbar radiculopathy symptoms, lumbar facet arthropathy, lumbar spondylosis, sacroiliitis. Today she rates her pain a 6 out of 10. Patient denies any new trauma or injury. Patient denies any change location or type of pain she experiences. Patient has just completed her 6 weeks of physical therapy however she states she does not feel like she is gotten any additional improvement. She still states she has chronic pain in her low back and describes it as an aching, throbbing sensation that is worse with increased activity. Patient states that it causes difficulty performing activities of daily living such as cooking or cleaning or even simple ambulation. Patient is prescribed compounding cream and pregabalin 100 mg 4 times a day. Patient is on Suboxone therapy from an outside provider. Patient denies any side effects from these medications. She is requesting an increase in her pregabalin medication if possible. Her Bruno is [id number]. Its been reviewed and appropriate. Review of Systems: General: No recent weight changes, no fever, no sleep disturbances Respiratory: No cough, no shortness of air, no recurring pulmonary infections Cardiovascular/peripheral vascular: No chest pain, no palpitations, no edema, no shortness of breath Gastrointestinal: No new onset incontinence, normal bowel movements reported Genitourinary: No new onset incontinence Musculoskeletal: Low back pain Psychiatric: [Normal mood/affect] Neurological: [Denies weakness in extremities], [denies balance issues] Objective:: Physical Exam: General: Alert and oriented x3, no acute distress, pleasant and cooperative Lungs: Respirations even and unlabored, symmetrical chest expansion Eyes: PERRL Musculoskeletal: Flexion and extension of lumbar [spine] somewhat guarded secondary to pain, [antalgic gait noted] positive Kemps test Neurological: Speech clear, no gross sensory deficit Assessment:: Degenerative disc disease of lumbar spine with lumbar radiculopathy symptoms, lumbar facet arthropathy, lumbar spondylosis, sacroiliitis Plan:: LimitedPatient continues to experience significant pain in her low back and range of motion. Patient did have a positive Kemps test during today's visit. Patient has had successful lumbar medial branch blocks in the past and lumbar RFA. I have discussed with the patient that she may benefit repeating the lumbar RFA. Risk and benefits were discussed with the patient and she would like to proceed forward with this plan of care. Patient is not on any blood thinners. I will also refill her pregabalin and change it to 300 mg twice daily. We will provide a 1 month supply of this medication. We will schedule her for a lumbar RFA bilaterally L4-L5 and L5-S1. Patient has been instructed to contact the clinic with any concerns before the next appointment. Dr. Sethi has reviewed this note and agrees with this plan of care. This note was dictated using voice recognition software and make contain errors or omissions. [facility] Disclaimer: The information contained in this section may have been updated after the patient was seen, as this information can be updated by other users. Medical History Asthma Cancer COPD (chronic obstructive pulmonary disease) History of hypertension Hyperlipidemia Surgical History H/O thyroidectomy H/O total hysterectomy History of cancer surgery Social History Smoking Status: Current every day smoker tobacco type: cigarettes packs per day: 1 alcohol intake: never substance use type: denies use current occupational status: disabled Travel in the last 8 weeks: N
== END | disposition home or self-care (01) ==
PROVIDERS: PCP Emergency Medicine; Visit Provider Nurse Practitioner Family
DX: M51.16 Intervertebral disc disorders with radiculopathy, lumbar region (principal); M47.26 Other spondylosis with radiculopathy, lumbar region; M46.1 Sacroiliitis, not elsewhere classified
CPT/HCPCS: 99212; G0463

== ENCOUNTER 2023-04-17 09:12 | Day surgery (SDC) | payer MEDICAID, SELFPAY ==
[2023-04-17 09:35] VITALS: BP 129/67; PULSE 79; RESP 18; TEMP 36.1; O2SAT 100; BMI 30.6
[2023-04-17 10:14] VITALS: BP 134/74; PULSE 72; RESP 18; O2SAT 96
[2023-04-17 10:15] VITALS: BP 134/74; PULSE 72; RESP 18; O2SAT 96
[2023-04-17 10:26] VITALS: BP 141/47; PULSE 78; RESP 18; O2SAT 100
--- NOTE | 2023-04-17 10:27 | P.PCN_ITS ---
Procedure Date: 04/17/23 Time: 10:15 Anesthesiologist:: Per Wagoner CRNA Complications:: None Pre-procedure Diagnosis:: Degenerative disc disease lumbar spine multilevels. Lumbar radiculopathy. Lumbar spondylosis. Multilevel lumbar facet arthropathy. Post-procedure Diagnosis:: Same Indications for Procedure:: Patient is a very pleasant 53-year-old female comes our clinic today for radiofrequency ablation L4-5 and L5-S1 bilaterally. Patient responded very well to blocks at the same levels bilaterally. Procedure Details:: Informed consent was obtained and the risk and benefits of the procedure was explained to the patient. Patient was placed prone on the procedure table. The patient was prepped and draped in sterile fashion. C-arm fluoroscopy was used to view the lumbar spine. The skin and subcutaneous tissues were anesthetized using lidocaine. I placed 20-gauge RF needles into the facet joints of L4-L5 and L5- S1 on the left side. We underwent sensory stimulation. There is good sensory stimulation at 0.8 V. We underwent motor stimulation. There is no motor stimulation at 2 V. We then anesthetized these levels with lidocaine and Depo- Medrol. I used a total of 40 mg Depo-Medrol for all 3 levels. I then burned all 3 levels of L4-5 and L5-S1 on the left side for 4 minutes at 80 ?C. Patient tolerated the procedure well with no complication. Plan and Disposition:: Patient was discharged without incident.
== END 2023-04-17 10:26 | disposition home or self-care (01) ==
PROVIDERS: PCP Emergency Medicine; Visit Provider Nurse Anesthetist, Certified Registered
DX: M51.16 Intervertebral disc disorders with radiculopathy, lumbar region (principal); M47.26 Other spondylosis with radiculopathy, lumbar region
CPT/HCPCS: 64635; 64636; J1040

== ENCOUNTER → 2023-05-16 11:35 | Outpatient (POV) | payer MEDICAID, SELFPAY ==
--- NOTE | 2023-05-16 12:03 | EXP.PAIN.SOA ---
[facility] Pain Management SOAP Note Subjective:: Patient is a pleasant 53-year-old female who presents today for follow-up of radiofrequency ablation L4-L5 and L5-S1 bilaterally on 04/17/2023. We are currently treating the patient for degenerative disc disease of lumbar spine with lumbar radiculopathy symptoms, lumbar facet arthropathy, lumbar spondylosis, sacroiliitis. Today she states that she has not noticed significant relief following this procedure. Patient states she continues to have significant pain in her low back with radiating symptoms into her legs. Patient denies any new trauma or injury. Patient denies any change to location or type of pain that she experiences. Patient does state that the pain interferes with her ability perform activities of daily living such as cooking and cleaning. Patient states in the past she has gotten really only 1 injection that did extremely well and lasted for a long time and that it was done a couple of years ago by Dr. Chung. Patient is currently managed with compounding cream and pregabalin 300 mg 2 times a day. Patient denies any side effects from these medications. Her Bruno is [id number]. Its been reviewed and appropriate. Review of Systems: General: No recent weight changes, no fever, no sleep disturbances Respiratory: No cough, no shortness of air, no recurring pulmonary infections Cardiovascular/peripheral vascular: No chest pain, no palpitations, no edema, no shortness of breath Gastrointestinal: No new onset incontinence, normal bowel movements reported Genitourinary: No new onset incontinence Musculoskeletal: Low back pain Psychiatric: [Normal mood/affect] Neurological: [Denies weakness in extremities], [denies balance issues] Objective:: Physical Exam: General: Alert and oriented x3, no acute distress, pleasant and cooperative Lungs: Respirations even and unlabored, symmetrical chest expansion Eyes: PERRL Musculoskeletal: Flexion and extension of lumbar [spine] somewhat guarded secondary to pain, [antalgic gait noted] Neurological: Speech clear, no gross sensory deficit Assessment:: Degenerative disc disease of lumbar spine with lumbar radiculopathy symptoms, lumbar facet arthropathy, lumbar spondylosis, sacroiliitis Plan:: Patient continues to experience significant pain in her low back and legs with limited range of motion. I have discussed with the patient that the previous injection that she did have that she stated provided significant relief was a lumbar epidural of L5-S1. I have discussed with the patient that she may benefit from repeat of this injection. Risk and benefits were discussed with the patient and she would like to proceed forward with this plan of care. Patient is not on any blood thinners. I will also refill the patient's pregabalin 300 mg twice a day and provide a 1 month supply of this medication. Patient will be scheduled for an LESI L5-S1. Patient has been instructed to contact the clinic with any concerns before the next appointment. Dr. Sethi has reviewed this note and agrees with this plan of care. This note was dictated using voice recognition software and make contain errors or omissions. [facility] Disclaimer: The information contained in this section may have been updated after the patient was seen, as this information can be updated by other users. Medical History Asthma Cancer COPD (chronic obstructive pulmonary disease) History of hypertension Hyperlipidemia Surgical History H/O thyroidectomy H/O total hysterectomy History of cancer surgery Family History (Updated 04/17/23 @ 09:36 by Jasmyne Cobb RN) Other No significant family history Social History Smoking Status: Current every day smoker tobacco type: cigarettes packs per day: 1 alcohol intake: never substance use type
[2023-05-16 12:51] VITALS: BP 116/76; PULSE 94; RESP 19; O2SAT 94; BMI 31.7
== END | disposition home or self-care (01) ==
PROVIDERS: PCP Emergency Medicine; Visit Provider Nurse Practitioner Family
DX: M51.16 Intervertebral disc disorders with radiculopathy, lumbar region (principal); M47.26 Other spondylosis with radiculopathy, lumbar region; M46.1 Sacroiliitis, not elsewhere classified
CPT/HCPCS: 99212; G0463

== ENCOUNTER 2023-06-05 09:36 | Day surgery (SDC) | payer MEDICAID, SELFPAY ==
[2023-06-05 09:46] VITALS: BP 122/76; BP 132/82; PULSE 75; PULSE 83; RESP 18; TEMP 36.4; O2SAT 93; O2SAT 97; BMI 30.6
[2023-06-05 09:55] VITALS: BP 126/64; PULSE 80; RESP 18; O2SAT 93
--- NOTE | 2023-06-05 09:58 | EXP.PAIN.PRO ---
Procedure Date: 06/05/23 Time: 09:50 Anesthesiologist:: Per Wagoner CRNA Complications:: None Pre-procedure Diagnosis:: Degenerative disc lumbar spine multilevels. Lumbar radiculopathy. Lumbar facet arthropathy. Lumbar spondylosis. Post-procedure Diagnosis:: Same. Indications for Procedure:: Patient is a very pleasant 53-year-old female that presents to our clinic today for lumbar epidural steroid injections L5-S1 level. Patient describes her low back pain as constant, dull, aching. Patient also complains of bilateral hip and leg radicular symptoms. She rates her pain 7/10 Procedure Details:: Procedure: Lumbar epidural steroid injection under fluoroscopy Informed consent was obtained and the risks and benefits of the procedure were explained to the patient. The patient was taken to the procedure room and noninvasive monitors placed, including noninvasive blood pressure cuff and pulse oximeter. The back was viewed using C-arm Fluoroscopy and prepped using Chloraprep as a cleansing solution and the L5-S1 interspace was palpated. Skin and subcutaneous tissues were anesthetized using lidocaine 1.5% and a 25-gauge needle. After this, an 18-gauge Touhy epidural needle was placed into the L5-S1 interspace and advanced using fluoroscopic guidance and loss of resistance to air until the epidural space was encountered. After confirmation of needle placement in the epidural space, with dye, a solution containing normal saline, 3 mL and Depo-Medrol 80 mg were incrementally injected into the lumbar epidural space. The patient tolerated the procedure well with no complications. The patient was observed in the Pain Clinic and then discharged home neurologically intact. Plan and Disposition:: Patient was discharged without incident.
== END 2023-06-05 09:55 | disposition home or self-care (01) ==
PROVIDERS: PCP Emergency Medicine; Visit Provider Nurse Anesthetist, Certified Registered
DX: M51.16 Intervertebral disc disorders with radiculopathy, lumbar region (principal); M47.26 Other spondylosis with radiculopathy, lumbar region
CPT/HCPCS: 62323; J1040

== ENCOUNTER → 2023-06-20 10:59 | Outpatient (POV) | payer MEDICAID, SELFPAY ==
[2023-06-20 11:08] VITALS: BP 129/60; PULSE 89; RESP 20; O2SAT 93; BMI 30.9
--- NOTE | 2023-06-20 11:25 | EXP.PAIN.SOA ---
[facility] Pain Management SOAP Note Subjective:: For followPatient is a pleasant 53-year-old female who presents today with left lumbar epidural steroid injection L5-S1 on 06/05/2023. We are currently treating the patient for degenerative disc disease of lumbar spine with lumbar radiculopathy symptoms, lumbar facet arthropathy, lumbar spondylosis, sacroiliitis. Today she states she had 3 days of improvement following this injection of approximately 70%. She does rate her pain today a 5 out of 10 and states she is back to her baseline. Patient denies any new trauma or injury. Patient denies any change to location or type of pain she experiences. Patient does states she continues to have chronic pain in her low back that is an aching, throbbing sensation that is worse with increased activity. Patient does state the pain interferes with her ability to perform activities of daily living such as cooking and cleaning. She does state that due to the pain that she does not do hardly anything anymore. She states that a lot of times she just sits around her house and that she feels like she has gained quite a bit of weight due to not being able to move more actively. She is on continuous oxygen related to COPD. Patient has tried skix-tpi-hleyhga medications such as Tylenol and ibuprofen along with heat and ice and topicals with no additional relief. Patient has had physical therapy in the past that did not provide any additional relief. Patient is unable to do additional physical therapy due to her significant comorbidities of COPD with a history of syncope and collapse and a BMI greater than 30. Patient is currently managed with pregabalin 300 mg twice a day. She denies any side effects to this medication. Her Bruno is [id number]. Its been reviewed and appropriate. Review of Systems: General: No recent weight changes, no fever, no sleep disturbances Respiratory: No cough, no shortness of air, no recurring pulmonary infections Cardiovascular/peripheral vascular: No chest pain, no palpitations, no edema, no shortness of breath Gastrointestinal: No new onset incontinence, normal bowel movements reported Genitourinary: No new onset incontinence Musculoskeletal: Low back pain Psychiatric: [Normal mood/affect] Neurological: [Denies weakness in extremities], [denies balance issues] Objective:: Physical Exam: General: Alert and oriented x3, no acute distress, pleasant and cooperative Lungs: Respirations even and unlabored, symmetrical chest expansion Eyes: PERRL Musculoskeletal: Flexion and extension of lumbar [spine] somewhat guarded secondary to pain, [antalgic gait noted] Neurological: Speech clear, no gross sensory deficit Assessment:: Degenerative disc disease of lumbar spine with lumbar radiculopathy symptoms, lumbar facet arthropathy, lumbar spondylosis, sacroiliitis Plan:: Patient continues to experience significant pain on a daily basis in her low back with limited range of motion. She has tried and failed conservative therapy such as oral medication, heat and ice, topicals, physical therapy, at home stretching and exercise for longer than 6 weeks, injective therapy. I have discussed with the patient that she may benefit from intrathecal pain pump therapy. Risk and benefits were discussed with the patient and educational handouts given during today's visit. She does state that she would like to proceed forward with this plan of care and that her brother has this device and does get significant relief. I will order the patient a psych eval and if she is deemed an appropriate candidate for the device we will plan for an intrathecal pain pump trial in the future. I will refill the patient's pregabalin 300 mg twice a day and provide a 2-month supply of this medication. Patient will return to clinic in 6 weeks following her psych eval for reevaluation of symptoms and plan of care. Patient has been instructed to contact the clinic with any concerns before the next appo
== END | disposition home or self-care (01) ==
PROVIDERS: PCP Emergency Medicine; Visit Provider Nurse Practitioner Family
DX: M51.16 Intervertebral disc disorders with radiculopathy, lumbar region (principal); M47.26 Other spondylosis with radiculopathy, lumbar region; M46.1 Sacroiliitis, not elsewhere classified
CPT/HCPCS: 99212; G0463

== ENCOUNTER → 2023-08-22 14:08 | Outpatient (POV) | payer MEDICAID, SELFPAY ==
[2023-08-22 14:44] VITALS: BP 154/64; PULSE 90; RESP 20; O2SAT 92; BMI 31.0
--- NOTE | 2023-08-22 14:55 | EXP.PAIN.SOA ---
[facility] Pain Management SOAP Note Subjective:: Patient is a pleasant 53-year-old female who presents today for follow-up. We are currently treating the patient for degenerative disc disease of lumbar spine with lumbar radiculopathy symptoms, lumbar facet arthropathy, lumbar spondylosis, sacroiliitis. Today she rates her pain a 5 out of 10. Patient does state her pain is all in her low back with radiating symptoms down her entire left leg. Patient denies any new trauma or injury. She does describe her pain as a constant aching, throbbing sensation that is worse with increased activity. She states it does make it difficult to perform activities of daily living such as cooking and cleaning. Patient is interested in any help we may be able to provide. At her last visit we did order a psych eval for possible intrathecal pain pump trial in the future however she states she has not had any updates on this. Patient is currently managed with pregabalin 300 mg twice a day. She denies any side effects from this medication. She is requesting if we are able to increase this medication if possible. Patient does use continuous oxygen related to COPD. Her Bruno is [id number]. Its been reviewed and appropriate. Review of Systems: General: No recent weight changes, no fever, no sleep disturbances Respiratory: No cough, no shortness of air, no recurring pulmonary infections Cardiovascular/peripheral vascular: No chest pain, no palpitations, no edema, no shortness of breath Gastrointestinal: No new onset incontinence, normal bowel movements reported Genitourinary: No new onset incontinence Musculoskeletal: Low back pain, left leg pain Psychiatric: [Normal mood/affect] Neurological: [Denies weakness in extremities], [denies balance issues] Objective:: Physical Exam: General: Alert and oriented x3, no acute distress, pleasant and cooperative Lungs: Respirations even and unlabored, symmetrical chest expansion Eyes: PERRL Musculoskeletal: Flexion and extension of lumbar [spine] somewhat guarded secondary to pain, [antalgic gait noted] positive left leg raise with decreased sensation and decreased reflexes along the left lower extremity Neurological: Speech clear, no gross sensory deficit Assessment:: Degenerative disc disease of lumbar spine with lumbar radiculopathy symptoms, lumbar facet arthropathy, lumbar spondylosis, sacroiliitis Plan:: Patient is experiencing significant pain in her low back with radiating symptoms into her left lower extremity. Patient did have limited range of motion of her lumbar spine along with decreased sensation to light touch and decreased reflexes along her left lower extremity during today's exam. I have discussed with the patient that she may benefit from a left transforaminal epidural steroid injection. Risk and benefits were explained to the patient and she would like to proceed forward with this plan of care. Patient is not on any blood thinners. I have also discussed with the patient that I will follow-up for her psychological evaluation and discuss this at her next visit. I will also refill the patient's pregabalin 300 mg and change it to 3 times a day and provide a 1 month supply of this medication. Patient will be scheduled for a left transforaminal epidural steroid injection L4-L5 and L5-S1. Patient has been instructed to contact the clinic with any concerns before the next appointment. Dr. Sethi has reviewed this note and agrees with this plan of care. This note was dictated using voice recognition software and make contain errors or omissions. [facility] Disclaimer: The information contained in this section may have been updated after the patient was seen, as this information can be updated by other users. Medical History Asthma Cancer COPD (chronic obstructive pulmonary disease) History of hypertension Hyperlipidemia Surgical History (Reviewed 02/01/23 @ 10:58 by Tiki Enriquez
== END | disposition home or self-care (01) ==
PROVIDERS: PCP Emergency Medicine; Visit Provider Nurse Practitioner Family
DX: M51.16 Intervertebral disc disorders with radiculopathy, lumbar region (principal); M47.26 Other spondylosis with radiculopathy, lumbar region; M46.1 Sacroiliitis, not elsewhere classified
CPT/HCPCS: 99212; G0463

== ENCOUNTER 2023-09-04 13:37 | Day surgery (SDC) | payer MEDICAID, SELFPAY ==
[2023-09-04 13:44] VITALS: BP 118/61; PULSE 89; RESP 18; TEMP 36.4; O2SAT 97; BMI 30.9
[2023-09-04 14:00] VITALS: BP 148/56; PULSE 82; RESP 18; O2SAT 98
--- NOTE | 2023-09-04 14:02 | P.PCN_ITS ---
Procedure Date: 09/04/23 Time: 14:00 Anesthesiologist:: Per Wagoner CRNA Complications:: None Pre-procedure Diagnosis:: Degenerative disease lumbar spine multilevels. Lumbar radiculopathy. Disc bulge multilevel lumbar spine. Lumbar spondylosis. Post-procedure Diagnosis:: Same. Indications for Procedure:: Patient is a very pleasant 53-year-old female comes our clinic today for left transforaminal L4-5 and L5-S1 epidural steroid injection. Patient complains of low left lumbar back pain she describes as constant, dull, aching. Patient also complains of left hip and leg radicular symptoms to the foot. She describes this radicular symptom as constant, sharp, stabbing at times. She rates her pain 8/10. Procedure Details:: Details of the procedure were explained to the patient. The patient was taken the procedure room placed in the prone position. The area of the lumbar spine was cleansed using chlorhexidine as a cleansing solution. At this time using fluoroscopy guidance markers were placed on the left lateral border of the L4 and L5 vertebral body. The skin and subcutaneous tissue was anesthetized using 1% lidocaine and 25-gauge needle. At this time using a 22-gauge 3-1/2 inch spinal needle the left upper one third of the L4-5 foramen was accessed. The same was done at the left L5-S1 foramen. Needle positions were confirmed and a lateral view using fluoroscopy and contrast dye. At this time 1 cc of 1% lidoc vish +20 mg of Depo-Medrol was injected at each level after negative aspiration. [place] were removed. Band-Aid applied. Patient tolerated the procedure without difficulty. There are no complications. Plan and Disposition:: Patient was discharged without incident.
== END 2023-09-04 14:00 | disposition home or self-care (01) ==
PROVIDERS: PCP Emergency Medicine; Visit Provider Nurse Anesthetist, Certified Registered
DX: M51.16 Intervertebral disc disorders with radiculopathy, lumbar region (principal); M47.26 Other spondylosis with radiculopathy, lumbar region
CPT/HCPCS: 64483; 64484; J1040

== ENCOUNTER → 2023-09-26 14:28 | Outpatient (POV) | payer MEDICAID, SELFPAY ==
--- NOTE | 2023-09-26 14:46 | EXP.PAIN.SOA ---
[facility] Pain Management SOAP Note Subjective:: Patient is a pleasant 53-year-old female who presents today for follow-up. We are currently treating the patient for degenerative disc disease of lumbar spine with lumbar radiculopathy symptoms, lumbar facet arthropathy, lumbar spondylosis, sacroiliitis, chronic pain syndrome. Today she rates her pain a 4 out of 10. Patient denies any new trauma or injury since our last visit. She does state that she continues to have pain all throughout her low back with radiating symptoms down her left leg. Patient did recently have a left transforaminal epidural L4-L5 and L5-S1 on 09/04/2023. Patient does state that this injection did provide significant improvement of upwards of 50% or more however only lasting 3 days. She does state that she is back to her baseline during today's visit and describes her pain as an aching, throbbing sensation that is constant and worse with increased activity. Patient does state that the pain interferes with her ability to perform activities of daily living such as cooking and cleaning. Patient has underwent a psychological evaluation for possible pain pump trial in the future. She does state that she would like to proceed forward with this option. Patient is currently managed with pregabalin 300 mg 3x a day. She denies any side effects from this medication. Patient has tried and failed conservative therapy such as oral medications, heat and ice, topicals, physical therapy, at home stretching exercise for longer than 12 weeks. Patient is on continuous oxygen related to COPD and cannot tolerate current physical therapy due to her current comorbidities. Her Bruno has been reviewed and is appropriate. Review of Systems: General: No recent weight changes, no fever, no sleep disturbances Respiratory: No cough, no shortness of air, no recurring pulmonary infections Cardiovascular/peripheral vascular: No chest pain, no palpitations, no edema, no shortness of breath Gastrointestinal: No new onset incontinence, normal bowel movements reported Genitourinary: No new onset incontinence Musculoskeletal: Low back pain Psychiatric: [Normal mood/affect] Neurological: [Denies weakness in extremities], [denies balance issues] Objective:: Physical Exam: General: Alert and oriented x3, no acute distress, pleasant and cooperative Lungs: Respirations even and unlabored, symmetrical chest expansion Eyes: PERRL Musculoskeletal: Flexion and extension of lumbar [spine] somewhat guarded secondary to pain, [antalgic gait noted] Neurological: Speech clear, no gross sensory deficit Assessment:: Degenerative disc disease of lumbar spine with lumbar radiculopathy symptoms, lumbar facet arthropathy, lumbar spondylosis, sacroiliitis Plan:: Patient continues to experience significant pain throughout her back with limited range of motion. Patient did have an appropriate psychological evaluation and was deemed an appropriate patient for the intrathecal pain pump trial. Risk and benefits were discussed with the patient during todays visit and she states she would like to proceed forward with this option. Patient has tried and failed conservative therapies including oral medications, heat and ice, topicals, physical therapy, injection therapy, at home stretching and exercise for longer than 12 weeks. I will refill the patient's pregabalin 300 mg 3x a day and provide a 3-month supply of this medication. Patient will be submitted to insurance for the intrathecal pain pump trial and will be contacted for specific date and time of this procedure once we have approval. Patient has been instructed to contact the clinic with any concerns before the next appointment. Dr. Sethi has reviewed this note and agrees with this plan of care. This note was dictated using voice recognition software and make contain errors or omissions. [facility] Disclaimer: The information contained in this section may have been updated after the patient w
[2023-09-26 14:57] VITALS: BP 141/69; PULSE 81; RESP 18; O2SAT 94; BMI 29.6
== END | disposition home or self-care (01) ==
PROVIDERS: PCP Emergency Medicine; Visit Provider Nurse Practitioner Family
DX: M51.16 Intervertebral disc disorders with radiculopathy, lumbar region (principal); M47.26 Other spondylosis with radiculopathy, lumbar region; M46.1 Sacroiliitis, not elsewhere classified
CPT/HCPCS: 99212; G0463

== ENCOUNTER → 2023-10-25 11:07 | Outpatient (POV) | payer MEDICAID, SELFPAY ==
--- NOTE | 2023-10-25 11:15 | EXP.PAIN.SOA ---
[facility] Pain Management SOAP Note Subjective:: Patient is a pleasant 53-year-old female who presents today for follow-up of insurance denial of intrathecal pain pump trial. We are currently treating the patient for degenerative disc disease of lumbar spine with lumbar radiculopathy symptoms, lumbar facet arthropathy, lumbar spondylosis, sacroiliitis, chronic pain syndrome. Today she rates her pain a 6 out of 10. Patient denies any new trauma or injury since our last visit. She states she continues to experience constant debilitating pain in her low back. She states this is an aching, throbbing sensation that is worse with increased activity. Patient states that she cannot do the simplest of activities of daily living such as cooking or cleaning or even ambulation due to the worsening pain. Patient does have to stop and take multiple breaks. Patient states her medication that she is on now only takes a small edge off however even that makes little to no difference. Patient has been to a neurosurgeon in the past in [place] who stated that she was not a surgical candidate. Patient has tried and failed conservative therapy such as oral medications, heat and ice, topicals, at home exercising and stretching for longer than 12 weeks, physical therapy in the past and injection therapy. Patient did have an appropriate psychological evaluation and was deemed an appropriate candidate for the intrathecal pain pump trial. Patient would like to proceed forward with this option. Patient states she feels like she has no quality of life. Patient is currently managed with pregabalin 300 mg 3x a day and compounded cream. She denies any side effects from this medication. Her Bruno has been reviewed and is appropriate. Injection history: 09/04/2023 left transforaminal L4-L5 and L5-S1 06/05/2023 LESI L5-S1 04/17/2023 lumbar RFA bilaterally L4-L5 and L5-S1 [id number] lumbar medial branch block #2 bilaterally L4-L5 and L5-S1 05/05/2022 LESI L4-L5 03/10/2022 lumbar medial branch block #1 bilaterally L4-L5 and L5-S1 06/03/2021 LESI L5-S1 12/20/2020 left sacroiliac injection (Previous charting system used prior to this last date) Review of Systems: General: No recent weight changes, no fever, no sleep disturbances Respiratory: No cough, no shortness of air, no recurring pulmonary infections Cardiovascular/peripheral vascular: No chest pain, no palpitations, no edema, no shortness of breath Gastrointestinal: No new onset incontinence, normal bowel movements reported Genitourinary: No new onset incontinence Musculoskeletal: Low back pain Psychiatric: [Normal mood/affect] Neurological: [Denies weakness in extremities], [denies balance issues] Objective:: Physical Exam: General: Alert and oriented x3, no acute distress, pleasant and cooperative Lungs: Respirations even and unlabored, symmetrical chest expansion Eyes: PERRL Musculoskeletal: Flexion and extension of lumbar [spine] somewhat guarded secondary to pain, [antalgic gait noted] Neurological: Speech clear, no gross sensory deficit Assessment:: Degenerative disc disease of lumbar spine with lumbar radiculopathy symptoms, lumbar facet arthropathy, lumbar spondylosis, sacroiliitis, chronic pain syndrome Plan:: Patient continues to experience significant pain throughout her low back that does restrict activities of daily living and cause decreased function and quality of life. Patient had limited range of motion of her lumbar spine during today's visit. Patient has tried and failed conservative therapy such as oral medications, heat and ice, topicals, physical therapy, at home stretching exercises for longer than 12 weeks, injection therapy and was saw by neurosurgery and told that she was not a surgical candidate. I have discussed again that she may be a beneficial candidate of the intrathecal pain pump trial. Risk and benefits were again discussed with the patient and she would like to proceed forward with this option. Patient has jackson
[2023-10-25 11:59] VITALS: BP 133/79; PULSE 83; RESP 20; O2SAT 97; BMI 30.4
== END ==
PROVIDERS: PCP Emergency Medicine; Visit Provider Nurse Practitioner Family
DX: M51.16 Intervertebral disc disorders with radiculopathy, lumbar region (principal); M47.26 Other spondylosis with radiculopathy, lumbar region; M46.1 Sacroiliitis, not elsewhere classified; G89.4 Chronic pain syndrome
CPT/HCPCS: 99212; G0463

== ENCOUNTER → 2023-11-15 08:59 | Outpatient (POV) | payer MEDICAID, SELFPAY ==
[2023-11-15 09:16] VITALS: BP 106/64; PULSE 82; RESP 19; O2SAT 94; BMI 30.2
--- NOTE | 2023-11-15 09:18 | EXP.PAIN.SOA ---
[facility] Pain Management SOAP Note Subjective:: Patient is a pleasant 53-year-old female who presents today for follow-up. We are currently treating the patient for degenerative disc disease of lumbar spine with lumbar radiculopathy symptoms, lumbar facet arthropathy, lumbar spondylosis, sacroiliitis, chronic pain syndrome. Today she does rate her pain a 6 out of 10. Patient denies any new trauma or injury. She denies any change to location or type of pain she experiences. Patient has officially been approved from her insurance for the intrathecal pain pump trial and she does states she has a tentative date of December 07. Patient has tried and failed conservative treatment such as oral medication, heat and ice, topicals, at home stretching and exercise for longer than 12 weeks, physical therapy in the past and injection therapy. Patient is currently managed with pregabalin 300 mg 3 times a day and compounded cream. She denies any side effects from this medication. At her last visit at the beginning of September she was given a 3-month supply of this medication and does not require any additional refills at this time. Her Bruno has been reviewed and is appropriate. Review of Systems: General: No recent weight changes, no fever, no sleep disturbances Respiratory: No cough, no shortness of air, no recurring pulmonary infections Cardiovascular/peripheral vascular: No chest pain, no palpitations, no edema, no shortness of breath Gastrointestinal: No new onset incontinence, normal bowel movements reported Genitourinary: No new onset incontinence Musculoskeletal: Low back pain Psychiatric: [Normal mood/affect] Neurological: [Denies weakness in extremities], [denies balance issues] Objective:: Physical Exam: General: Alert and oriented x3, no acute distress, pleasant and cooperative Lungs: Respirations even and unlabored, symmetrical chest expansion Eyes: PERRL Musculoskeletal: Flexion and extension of lumbar [spine] somewhat guarded secondary to pain, [antalgic gait noted] Neurological: Speech clear, no gross sensory deficit Assessment:: Degenerative disc disease of lumbar spine with lumbar radiculopathy symptoms, lumbar facet arthropathy, lumbar spondylosis, sacroiliitis, chronic pain syndrome Plan:: Patient continues to have significant pain in her low back with limited range of motion. I have reviewed over the risk and benefits of the intrathecal pain trial again with the patient and she still would like to continue. Patient is scheduled for December 07. We will follow-up with her after this procedure. Patient has been instructed to contact the clinic with any concerns before the next appointment. Dr. Sethi has reviewed this note and agrees with this plan of care. This note was dictated using voice recognition software and make contain errors or omissions. [facility] Disclaimer: The information contained in this section may have been updated after the patient was seen, as this information can be updated by other users. 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
== END ==
PROVIDERS: Visit Provider Nurse Practitioner Family
DX: M51.16 Intervertebral disc disorders with radiculopathy, lumbar region (principal); M47.26 Other spondylosis with radiculopathy, lumbar region; M46.1 Sacroiliitis, not elsewhere classified; G89.4 Chronic pain syndrome
CPT/HCPCS: 99212; G0463

== ENCOUNTER 2023-12-07 09:53 | Day surgery (SDC) | payer MEDICAID, SELFPAY ==
[2023-12-07] VITALS (8 sets, daily range): BP systolic 92–128; BP diastolic 52–83; PULSE 80–92; RESP 16–19; O2SAT 92–98; BMI 30.8
[2023-12-07] MEDS: CEFAZOLIN SODIUM 1 GM in 0.9 % SODIUM CHLORIDE 50 ML IV (10:14)
[2023-12-07] MEDS: LIDOCAINE 1% 30ML PF VIAL 30 ML (10:15)
[2023-12-07] MEDS: BUPIVACAINE 0.75% IN DEXTROSE 2ML AMP 1 ML IJ (10:16)
--- NOTE | 2023-12-07 11:18 | PC.NURSE ---
1110- PT STATES ABLE TO AMBULATE
--- NOTE | 2023-12-07 11:19 | PC.NURSE ---
1108- MD AT BEDSIDE
--- NOTE | 2023-12-07 12:09 | EXP.PAIN.PRO ---
Procedure Date: 12/07/23 Time: 12:09 Anesthesiologist:: Williams Sethi MD Complications:: None Pre-procedure Diagnosis:: Degenerative disc disease of lumbar spine with lumbar radiculopathy symptoms Post-procedure Diagnosis:: Same Indications for Procedure:: Patient is a pleasant 53-year-old white female who we are treating for low back pain with lumbar radiculopathy symptoms. She has increasing back pain radiating down both legs. She is currently on Suboxone and she is also on oxygen. She has failed all previous conservative treatments including injections, oral medications, physical therapy and she is not a candidate for surgery. Her pain is affecting her activities of daily living. She had a successful psychological evaluation. She presents for intrathecal pump trial today. Procedure Details:: Pain pump trial Informed consent was obtained and the risk and benefits of the procedure was explained to the patient. The patient was taken to the procedure room and placed prone on the procedure table. Patient was prepped and draped in sterile fashion. C-arm fluoroscopy was used to view the lumbar spine. The skin and subcutaneous tissues were anesthetized using lidocaine. I placed a 18-gauge spinal needle into the L4-5 interspace and advanced until clear CSF was obtained. After this intrathecal catheter was inserted and advanced very easily to the L1 vertebral body. The needle was withdrawn. We were able to freely withdraw clear CSF through the catheter. We then injected intrathecal bupivacaine 2 mg followed by saline and followed by the previous CSF that was withdrawn. The needle and catheter were then removed and a Band-Aid was placed. Patient tolerated the procedure well with no complications. We reevaluated the patient after 30 minutes to 1 hour. Patient had 90 to 100% relief in pain symptoms. She was numb however once her numbness wore off she was much more functional. Patient was discharged home neurologic intact with good relief of pain symptoms. Plan and Disposition:: We will follow-up with her in 1 week to assess efficacy of the trial. If successful we will plan on permanent placement with intrathecal bupivacaine 5 mg per mall to start at 2.5 mg/day. Catheter tip will be at the T8 vertebral body.
== END 2023-12-07 11:20 | disposition home or self-care (01) ==
PROVIDERS: PCP Emergency Medicine; Visit Provider Anesthesiology
DX: M51.16 Intervertebral disc disorders with radiculopathy, lumbar region (principal)
CPT/HCPCS: 62323

== ENCOUNTER → 2023-12-24 11:00 | Outpatient (POV) | payer MEDICAID, SELFPAY ==
[2023-12-24 11:55] VITALS: BP 124/47; PULSE 77; RESP 18; O2SAT 94; BMI 30.9
--- NOTE | 2023-12-24 11:55 | A.OFFVIS_ITS ---
[facility] Pain Management SOAP Note Subjective:: Patient is a pleasant 53-year-old female who presents today for follow-up of intrathecal pain pump trial on 12/07/2023. Currently treating the patient for degenerative disc disease of lumbar spine with lumbar radiculopathy symptoms, lumbar facet arthropathy, lumbar spondylosis, sacroiliitis, chronic pain syndrome. Today she rates her pain a 6 out of 10. Patient denies any new injury or trauma or any change to location or type of pain she experiences. Patient does state that she had 100% relief following her intrathecal pain pump trial. Patient was tried with bupivacaine 2 mg. Patient denied any side effects other than having some numbness. Patient states that she did have overall improvement and felt like on a day-to-day basis that this would help with her daily pains and improve her quality of life. Patient does state that she is back to her baseline today and describes it as a constant achy, throbbing sensation that is worse with increased activity or ambulation. Patient has tried and failed conservative treatment such as oral medications, heat and ice, topicals, home exercising and stretching for longer than 12 weeks, physical therapy in the past and injection therapy. Patient is on continuous O2 due to history of COPD with occasional exacerbations. Patient is unable to do new physical therapy due to her pulmonary comorbidities. Patient did have an appropriate psychological evaluation and was deemed an appropriate patient for this device. Patient does state today that she would like to proceed forward with the implant. Patient is currently managed with pregabalin 300 mg 3 times a day and compounded cream. Her Bruno has been reviewed and is appropriate. Review of Systems: General: No recent weight changes, no fever, no sleep disturbances Respiratory: No cough, no shortness of air, no recurring pulmonary infections Cardiovascular/peripheral vascular: No chest pain, no palpitations, no edema, no shortness of breath Gastrointestinal: No new onset incontinence, normal bowel movements reported Genitourinary: No new onset incontinence Musculoskeletal: Low back pain Psychiatric: [Normal mood/affect] Neurological: [Denies weakness in extremities], [denies balance issues] Objective:: Physical Exam: General: Alert and oriented x3, no acute distress, pleasant and cooperative Lungs: Respirations even and unlabored, symmetrical chest expansion Eyes: PERRL Musculoskeletal: Flexion and extension of lumbar [spine] somewhat guarded secondary to pain, [antalgic gait noted] Neurological: Speech clear, no gross sensory deficit Assessment:: Degenerative disc disease of lumbar spine with lumbar radiculopathy symptoms, lumbar facet arthropathy, lumbar spondylosis, sacroiliitis, chronic pain syndrome Plan:: Patient did have 100% relief following her intrathecal pain pump trial and would like to proceed forward with implant. Risk and benefits of this procedure were explained to the patient and she would like to proceed forward with this plan of care. We will submit to insurance for the intrathecal pain pump implant and contact the patient once we have official approval for time and date. Patient is not on any blood thinners. Patient will be started on intrathecal bupivacaine 5 mg/mL with a starting daily dose of 2.5 mg/day. The catheter tip will be at the T8 vertebral body. I will send in refills of the patient's pregabalin 300 mg 3 times daily and provide a 3-month supply of this medication. Patient has been instructed to contact the clinic with any concerns before the next appointment. Dr. Sethi has reviewed this note and agrees with this plan of care. This note was dictated using voice recognition software and make contain errors or omissions. [facility] Disclaimer: The information contained in this section may have been updated after the patient was seen, as this information can be updated by other users. 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
== END | disposition home or self-care (01) ==
PROVIDERS: Visit Provider Nurse Practitioner Family
DX: M51.16 Intervertebral disc disorders with radiculopathy, lumbar region (principal); M47.26 Other spondylosis with radiculopathy, lumbar region; M46.1 Sacroiliitis, not elsewhere classified; G89.4 Chronic pain syndrome
CPT/HCPCS: 99212; G0463

== ENCOUNTER 2024-01-31 09:16 | Outpatient (CLI) | payer MEDICARE, MEDICAID, SELFPAY ==
[2024-01-31 09:55] LABS: Basophils # 0.1 K/mm3 (0-0.2); Basophils % 0.9 % (0.1-2.0); Eosinophils # 0.3 K/mm3 (0.0-0.4); Hematocrit 42.3 % (37.0-47.0); Hemoglobin 13.7 g/dL (12.2-16.2); Lymphocytes # 2.5 K/mm3 (0.7-4.5); Lymphocytes % 16.7 % (10-50); Mean Corpuscular HGB Conc 32.4 g/dL (31.8-35.4); Mean Corpuscular Hemoglobin 29.7 pg (27.0-31.2); Mean Corpuscular Volume 91.7 fl (81-99); Mean Platelet Volume 9.3 fl (7.4-10.4); Monocytes # 0.8 K/mm3 (0.1-1.0); Monocytes % 5.3 % (1.7-9.3); Neutrophils # 11.1 K/mm3 (1.8-7.8); Platelet Count 203 K/mm3 (142-424); Red Blood Count 4.61 M/mm3 (4.20-5.40); Red Cell Distribution Width 14.2 % (11.5-17.5); White Blood Count 14.8 K/mm3 (4.8-10.8)
[2024-01-31 10:29] LABS: Anion Gap 8.1 mEq/L (5-15); Blood Urea Nitrogen 14 mg/dl (7-17); Calcium 9.1 mg/dl (8.4-10.2); Carbon Dioxide 35 mmol/L (22.0-30.0); Chloride 100 mmol/L (98-107); Estimated Glomerular Filt Rate 87 ml/min (>60); GFR (African American) 105 ML/MIN (>60); Glucose 98 mg/dl (74-100); Potassium 4.1 mmoL/L (3.5-5.1); Sodium 139 mmol/L (136-145)
[2024-01-31 11:08] LABS: Amphetamine/Metha Screen,Urine Negative ng/ml (<1000)
[2024-01-31 11:09] LABS: Barbiturates Screen,Urine Negative ng/ml (<200); Benzodiazepines Screen,Urine Negative ng/ml (<200)
[2024-01-31 11:10] LABS: Cannabinoid Screen,Urine Negative ng/ml (<50)
[2024-01-31 11:11] LABS: Cocaine Screen,Urine Negative ng/ml (<300); Methadone Screen,Urine Negative ng/ml (<300)
[2024-01-31 11:12] LABS: Opiate Screen,Urine Negative ng/ml (<300)
[2024-01-31 11:13] LABS: Phencyclidine Screen,Urine Negative ng/ml (<25)
[2024-01-31 13:33] LABS: Hemoglobin A1C 5.5 % (4.0-6.0)
== END 2024-01-31 23:59 ==
LOC: LAB 09:19
PROVIDERS: Visit Provider Anesthesiology
DX: Z01.818 Encounter for other preprocedural examination (principal); Z79.899 Other long term (current) drug therapy
CPT/HCPCS: 36415; 80048; 80307; 83036; 85025

== ENCOUNTER 2024-02-01 08:47 | Day surgery (SDC) | payer MEDICARE, MEDICAID, SELFPAY ==
[2024-01-29 13:49] VITALS: BMI 30.6
--- NOTE | 2024-01-31 11:55 | SUR.PREOP ---
notified yunier at Dr. Sethi office of elevated WBC count.
[2024-02-01] MEDS: VANCOMYCIN/WATER FOR INJ (PEG) 1.5 GM/300 ML PIGGYBACK IV ×2 (09:02→12:43)
[2024-02-01] MEDS: LACTATED RINGERS 1000ML 1,000 ML 25 ML IV (09:02)
[2024-02-01 09:09] VITALS: BP 121/76; PULSE 74; RESP 18; TEMP 36.7; O2SAT 91
[2024-02-01 09:26] LABS: Amphetamine/Metha Screen,Urine Negative ng/ml (<1000)
[2024-02-01 09:27] LABS: Barbiturates Screen,Urine Negative ng/ml (<200)
[2024-02-01 09:29] LABS: Benzodiazepines Screen,Urine Negative ng/ml (<200)
[2024-02-01 09:30] LABS: Cannabinoid Screen,Urine Negative ng/ml (<50); Cocaine Screen,Urine Negative ng/ml (<300)
[2024-02-01 09:31] LABS: Methadone Screen,Urine Negative ng/ml (<300); Opiate Screen,Urine Negative ng/ml (<300)
[2024-02-01 09:41] LABS: Phencyclidine Screen,Urine Negative ng/ml (<25)
[2024-02-01 10:36] LABS: POC Glucose,Bedside 89 (70-110)
[2024-02-01] MEDS: LIDOCAINE 2% w/EPI 1:200,000 20ML VIAL 20 ML (12:42)
[2024-02-01] MEDS: LIDOCAINE 1% W/EPI 1:100,000 20ML VIAL 20 ML (12:42)
[2024-02-01] MEDS: GENTAMICIN 80 MG/2 ML VIAL (12:43)
[2024-02-01] MEDS: SODIUM CHLORIDE 0.9% 20ML VIAL 40 ML IV (12:43)
[2024-02-01 13:10] VITALS: BP 147/85; PULSE 72; RESP 16; TEMP 36.4; O2SAT 93
[2024-02-01 13:20] VITALS: BP 161/83; PULSE 66; RESP 17; O2SAT 98
--- NOTE | 2024-02-01 13:21 | P.OP_ITS ---
Date of procedure: 02/01/24 Pre-op Diagnosis:: Degenerative disc disease of lumbar spine with lumbar radiculopathy symptoms Post-op Diagnosis:: Same Procedure performed:: Permanent placement intrathecal pain pump with tunneled intrathecal catheter and pain pump generator placement Surgeon:: Williams Sethi MD PUNCHBOARD INSERTER:: Leander Wilson Anesthesia: MAC Estimated blood loss (mL): 5 Clinical Note:: This patient is a pleasant 54-year-old white female who we are treating for low back pain with lumbar radiculopathy symptoms. She has increasing back pain rating to both legs. She has failed all previous conservative treatments including injections, oral medications, physical therapy and she is not a candidate for surgery. She is on O2 due to COPD with occasional exacerbations. She had a successful intrathecal pump trial with bupivacaine. She has a successful psychological evaluation. She presents for permanent placement of intrathecal pain pump today. Operative findings:: None Operative note:: Informed consent was obtained risk and benefits of the procedure were explained to the patient. Patient was taken the operating room placed prone on the procedure table. She was prepped and draped in sterile fashion. C-arm fluoroscopy was used to view the right flank. Residential between the 12th rib and iliac crest the skin and subcutaneous tissues were anesthetized using lidocaine. I made incision dissected out the pump pocket. C-arm fluoroscopy was then used to view the lumbar spine at L4-5 and L5-S1. The skin and subcutaneous tissues adjacent to L4-5 and L5-S1 were anesthetized using lidocaine. I made an incision dissected down to the lumbar paraspinous fascia. A 17-gauge spinal needle was inserted and advanced into the L4-5 interspace until clear CSF was obtained. After this intrathecal catheter was inserted and advanced very easily to the T8 vertebral body. Catheter was in good position it was midline and posterior. The stylette of the catheter and the needle withdrawn. The catheter was secured to the fascia with anchor device and 2-0 Prolene. I filled the pump with 20 mL of intrathecal bupivacaine 5 mg/mL. I tunneled the catheter from the back to the pump pocket and attached catheter to the pump. We are able to freely withdraw clear CSF through the sideport. The pump was then placed in the pocket. Both incisions were then closed with 2-0 Vicryl followed by 4-0 nylon and subcutaneous armin. Patient was placed in an abdominal binder taken recovery in stable condition. The patient tolerated the procedure well with no complications. Pump was interrogated and started at 2.5 mg/day of intrathecal bupivacaine Patient was discharged home neurologic intact with good relief of pain symptoms. Plan and disposition: We will follow-up with this patient in 1 week for reprogramming and wound check. Will follow-up in 2 to 3 weeks for suture removal. Condition: stable Disposition: PACU Complications:: None
[2024-02-01 13:30] VITALS: BP 159/93; PULSE 69; RESP 17; O2SAT 98
== END 2024-02-01 13:30 | disposition home or self-care (01) ==
PROVIDERS: PCP Emergency Medicine; Visit Provider Anesthesiology
PROC: (CPT 62350; principal; 2024-02-01 10:30)
DX: M51.16 Intervertebral disc disorders with radiculopathy, lumbar region (principal); Z79.899 Other long term (current) drug therapy
CPT/HCPCS: 62350; 62362; 80307; 82962; C1755; C1772

== ENCOUNTER 2024-02-08 11:49 | Outpatient (POV) | payer MEDICARE, MEDICAID, SELFPAY ==
--- NOTE | 2024-02-08 12:11 | EXP.PAIN.PRO ---
Procedure Date: 02/08/24 Time: 12:11 Anesthesiologist:: Ines Christianson APRN Complications:: None Pre-procedure Diagnosis:: Degenerative disc disease of lumbar spine with lumbar radiculopathy symptoms, lumbar facet arthropathy, lumbar spondylosis, sacroiliitis, chronic pain syndrome Post-procedure Diagnosis:: Same Indications for Procedure:: Patient is a pleasant 54-year-old female who presents today for 1 week postop of her intrathecal pain pump placement on 02/01/2024. Today she rates her pain a 6 out of 10. Patient denies any trouble following this procedure but does state that she is having increased low back pain related to her incisions. Patient is currently managed with intrathecal bupivacaine 5 mg/mL with a daily dose of 2.50 to 1 mg/day. She denies any side effects from this medication. Patient is also prescribed pregabalin 300 mg 3 times a day and compounded cream. Patient denies issues with these medications. Patient is requesting something for pain and states that Dr. Sethi did state that we could do oral medication in combination with her bupivacaine pump. Patient does have a history of COPD and is on continuous O2. Her Bruno has been reviewed and is appropriate. Physical Exam: General: Alert and oriented x3, no acute distress, pleasant and cooperative Lungs: Respirations even and unlabored, symmetrical chest expansion Eyes: PERRL Musculoskeletal: Flexion and extension of lumbar [spine] somewhat guarded secondary to pain, [antalgic gait noted] Neurological: Speech clear, no gross sensory deficit Skin: Incisions are clean, dry, well-approximated with minimal erythema noted and sutures intact Procedure Details:: Informed consent was obtained and the risk and benefits of the procedure were explained to the patient. Patient was taken to the procedure room where noninvasive monitoring was placed including noninvasive blood pressure cuff and pulse oximeter. Patient's pump was interrogated and was reprogrammed to bupivacaine 2.7549 mg/day. The patient tolerated the procedure well with no complications. Plan and Disposition:: Patient tolerated her intrathecal increase with no complications and was discharged neurologically intact. I have gone over with the patient to continue her full 6-week postop restrictions including no submerging in water until her incisions are fully healed, minimal bending, twisting or lifting and to continue to wear her abdominal binder for the full 6 weeks to prevent seroma formation. Patient did state that someone in the operating room staff did state that she only had to use the abdominal binder for a couple of days. I have counseled the patient that this is something that we do for the full 6 weeks. Patient did also go to the tanning bed 2 different occasions prior to our visit today. I have spoken to the patient that we need to hold off on any tanning bed visits in future until her incisions are fully healed due to increased risk of infection. Patient acknowledges understanding and agrees with plan of care. Patient also states that it was her understanding when she talked to Dr. Sethi that we would now prescribe oral opioid medication since her pump is only bupivacaine. I have counseled the patient that I will have to confirm this with Dr. Sethi before sending in any orders. I did speak to Dr. Bunn regarding this patient's request of pain medications orally and due to her history of significant COPD him on continuous O2 and current Suboxone therapy we will not prescribe any oral opioids. Patient did just recently have her pregabalin refilled with a 3-month supply and does not require any additional refills at this point. Patient will return to clinic in 1 week for reevaluation of symptoms and suture removal. Patient has been instructed to contact the clinic with any concerns before the next appointment. Dr. Sethi has reviewed this note and agrees with this plan of care. This note was dictated using voice recognition software and make contain errors or omissions. -- It Is medically necessary for this patient to continue to have their intrathecal pump refilled at regular intervals. This patient had an intrathecal pain pump implanted after meeting criteria of chronic intractable pain for greater than 3 months and failing conservative treatments. Patient has committed and been compliant to the treatment plan and all planned follow up care. Since implantation of the intrathecal pain pump, the patient has had decreased pain and been more functional. Oral medications have been reduced including intake of oral opioids. Patient continues to do well with intrathecal therapy with decrease in pain symptoms and increase in functional status. Stopping intrathecal medications can lead to life threatening withdrawal, seizures, cardiac arrest, severe pain, and possible . Pumps that are not refilled at regular intervals can be damages and cause and need for replacement. We continually titrate dose and concentration to optimize pain relief and function. We are limited in concentration for certain drugs to safely deliver medications through the pump and stay within the recommendations from the Polyan[employer] Consensus Committee Guidelines. Depending on dose and concentration these pumps may need to be refilled sooner than 3 months as we titrate.
[2024-02-08 13:25] VITALS: BP 117/42; PULSE 82; RESP 18; O2SAT 94; BMI 30.8
== END 2024-02-08 23:59 | disposition home or self-care (01) ==
PROVIDERS: PCP Emergency Medicine; Visit Provider Nurse Practitioner Family
DX: M51.16 Intervertebral disc disorders with radiculopathy, lumbar region (principal); M47.26 Other spondylosis with radiculopathy, lumbar region; M46.1 Sacroiliitis, not elsewhere classified; G89.4 Chronic pain syndrome; Z97.8 Presence of other specified devices; Z45.1 Encounter for adjustment and management of infusion pump
CPT/HCPCS: 62368; 99213; G0463

== ENCOUNTER 2024-02-18 11:16 | Outpatient (POV) | payer MEDICARE, MEDICAID, SELFPAY ==
[2024-02-18 11:25] VITALS: BP 130/69; PULSE 62; RESP 18; TEMP 36.8; O2SAT 95; BMI 31.1
--- NOTE | 2024-02-18 11:28 | P.PCN_ITS ---
Procedure Date: 02/18/24 Time: 11:28 Anesthesiologist:: Ines Christianson APRN Complications:: None Pre-procedure Diagnosis:: Degenerative disc disease of lumbar spine with lumbar radiculopathy symptoms, lumbar facet arthropathy, lumbar spondylosis, sacroiliitis, chronic pain syndrome Post-procedure Diagnosis:: Same Indications for Procedure:: Patient is a pleasant 53-year-old female who presents today for intrathecal adjustment and reprogram. Currently treating the patient for degenerative disc disease of lumbar spine with lumbar radiculopathy symptoms, lumbar facet arthropathy, lumbar spondylosis, sacroiliitis, chronic pain syndrome. Today she rates her pain a 6 out of 10. Patient denies any new injury or trauma. She does state that she is having worsening pain all over. She is requesting an increase of her pump. She is currently managed with bupivacaine 5 mg/mL with a daily dose of 2.7549 mg/day. She denies any side effects from this medication. Patient is currently managed with pregabalin 300 mg 3 times a day and compounded cream. Her Bruno has been reviewed and is appropriate. Physical Exam: General: Alert and oriented x3, no acute distress, pleasant and cooperative Lungs: Respirations even and unlabored, symmetrical chest expansion Eyes: PERRL Musculoskeletal: Flexion and extension of lumbar [spine] somewhat guarded secondary to pain, [antalgic gait noted] Neurological: Speech clear, no gross sensory deficit Skin: Incision sites are clean, dry, well-approximated with no erythema noted sutures intact Procedure Details:: Informed consent was obtained and the risk and benefits of the procedure were explained to the patient. Patient was taken to the procedure room where noninvasive monitoring was placed including noninvasive blood pressure cuff and pulse oximeter. Patient's pump was interrogated and was reprogrammed to bupivacaine 3.0296mg/day. The patient tolerated the procedure well with no complications. Plan and Disposition:: Patient tolerated her intrathecal increase with no complications and was discharged neurologically intact. We did remove the patient's sutures and I have counseled her to continue her postop restrictions for the full 6 weeks. Patient is agreeable with this plan of care. Patient was just refilled on her pregabalin at our last visit and given a 3-month supply of this medication. I will send in a new prescription of Flexeril 10 mg 3 times a day as needed and provide a 3-month supply of these medications. Patient will return to clinic in 2 weeks for reevaluation of symptoms and plan of care. Patient has been instructed to contact the clinic with any concerns before the next appointment. Dr. Sethi has reviewed this note and agrees with this plan of care. This note was dictated using voice recognition software and make contain errors or omissions. -- It Is medically necessary for this patient to continue to have their intrathecal pump refilled at regular intervals. This patient had an intrathecal pain pump implanted after meeting criteria of chronic intractable pain for greater than 3 months and failing conservative treatments. Patient has committed and been compliant to the treatment plan and all planned follow up care. Since implantation of the intrathecal pain pump, the patient has had decreased pain and been more functional. Oral medications have been reduced including intake of oral opioids. Patient continues to do well with intrathecal therapy with decrease in pain symptoms and increase in functional status. Stopping intrathecal medications can lead to life threatening withdrawal, seizures, cardiac arrest, severe pain, and possible . Pumps that are not refilled at regular intervals can be damages and cause and need for replacement. We continually titrate dose and concentration to optimize pain relief and function. We are limited in concentration for certain drugs to safely deliver medications through the pump and stay within the recommendations from the [employer] Guidelines. Depending on dose and concentration these pumps may need to be refilled sooner than 3 months as we titrate.
== END 2024-02-18 23:59 | disposition home or self-care (01) ==
PROVIDERS: PCP Emergency Medicine; Visit Provider Nurse Practitioner Family
DX: M51.16 Intervertebral disc disorders with radiculopathy, lumbar region (principal); M47.26 Other spondylosis with radiculopathy, lumbar region; M46.1 Sacroiliitis, not elsewhere classified; G89.4 Chronic pain syndrome; Z97.8 Presence of other specified devices; Z45.1 Encounter for adjustment and management of infusion pump
CPT/HCPCS: 62368; 99212; G0463

== ENCOUNTER 2024-02-29 11:28 | Day surgery (SDC) | payer MEDICARE, MEDICAID, SELFPAY ==
[2024-02-29 11:48] VITALS: BP 141/71; PULSE 82; RESP 16; TEMP 36.3; O2SAT 92; BMI 32.1
[2024-02-29 12:03] VITALS: BP 126/84; PULSE 79; RESP 18; O2SAT 96
[2024-02-29 12:05] VITALS: BP 126/84; PULSE 79; RESP 18; O2SAT 96
[2024-02-29 12:15] VITALS: BP 123/66; PULSE 74; RESP 16; O2SAT 92
--- NOTE | 2024-02-29 12:25 | EXP.PAIN.PRO ---
Procedure Date: 02/29/24 Time: 11:45 Anesthesiologist:: Per Wagoner CRNA Complications:: None Pre-procedure Diagnosis:: Degenerative disc lumbar spine multilevels. Lumbar radiculopathy. Lumbar postlaminectomy syndrome. Post-procedure Diagnosis:: Same. Indications for Procedure:: Patient is a very pleasant 54-year-old female comes our clinic today for intrathecal pain pump interrogation, reprogram and refill. Patient is currently being managed with bupivacaine 5 mg/mL. She will be changed to 10 mg/mL bupivacaine. Patient requesting slight increase in the rate. She is having some low back pain with activity. She is currently being managed at 3.0296 mg/day. Will increase her by 5%. Procedure Details:: Details of the procedure explained to the patient. The patient taken procedure room placed in sitting position. The area of the pump was cleansed using chlorhexidine as a cleansing solution. The pump was interrogated. The pump was accessed with ease using a 22-gauge inch and half needle. 4 mL of solution was withdrawn discarded appropriate. The pump was then filled with 20 cc of a solution containing bupivacaine 10 mg/mL. The rate will increase to 3.184 mg/day. Patient tolerated procedure without difficulty. There are no complications. Plan and Disposition:: Patient was discharged without incident.
== END 2024-02-29 12:15 | disposition home or self-care (01) ==
PROVIDERS: PCP Emergency Medicine; Visit Provider Nurse Anesthetist, Certified Registered
DX: M51.16 Intervertebral disc disorders with radiculopathy, lumbar region (principal); M96.1 Postlaminectomy syndrome, not elsewhere classified; Z97.8 Presence of other specified devices; Z45.1 Encounter for adjustment and management of infusion pump
CPT/HCPCS: 62370

== ENCOUNTER 2024-03-03 11:15 | Outpatient (POV) | payer MEDICARE, MEDICAID, SELFPAY ==
[2024-03-03 11:25] VITALS: BP 125/82; PULSE 84; RESP 16; O2SAT 95; BMI 32.1
--- NOTE | 2024-03-03 11:49 | EXP.PAIN.PRO ---
Procedure Date: 03/03/24 Time: 11:49 Anesthesiologist:: Ines Christianson APRN Complications:: None Pre-procedure Diagnosis:: Degenerative disc disease of lumbar spine with lumbar radiculopathy symptoms, lumbar facet arthropathy, lumbar spondylosis, sacroiliitis, chronic pain syndrome Post-procedure Diagnosis:: Same Indications for Procedure:: Patient is a pleasant 54-year-old female who presents today for intrathecal adjustment and reprogram. Today she rates her pain a 4 out of 10. She denies any new trauma or injury. She states that she is having a little bit more pain in her back where she has started to increase her activity. Patient is currently managed with bupivacaine 10 mg/mL with a daily dose of 3.184 mg/day. She denies any side effects from this medication. She is prescribed pregabalin from our office. Her Bruno has been reviewed and is appropriate. Physical Exam: General: Alert and oriented x3, no acute distress, pleasant and cooperative Lungs: Respirations even and unlabored, symmetrical chest expansion Eyes: PERRL Musculoskeletal: Flexion and extension of lumbar [spine] somewhat guarded secondary to pain, [antalgic gait noted] Neurological: Speech clear, no gross sensory deficit Procedure Details:: Informed consent was obtained and the risk and benefits of the procedure were explained to the patient. Patient was taken to the procedure room where noninvasive monitoring was placed including noninvasive blood pressure cuff and pulse oximeter. Patient's pump was interrogated and was reprogrammed to bupivacaine 3.498 mg/day. The patient tolerated the procedure well with no complications. Plan and Disposition:: Patient tolerated her intrathecal increase with no complications and was discharged neurologically intact. Patient will return to clinic in 1 month for reevaluation of symptoms and plan of care. Patient has been instructed to contact the clinic with any concerns before the next appointment. Dr. Sethi has reviewed this note and agrees with this plan of care. This note was dictated using voice recognition software and make contain errors or omissions. -- It Is medically necessary for this patient to continue to have their intrathecal pump refilled at regular intervals. This patient had an intrathecal pain pump implanted after meeting criteria of chronic intractable pain for greater than 3 months and failing conservative treatments. Patient has committed and been compliant to the treatment plan and all planned follow up care. Since implantation of the intrathecal pain pump, the patient has had decreased pain and been more functional. Oral medications have been reduced including intake of oral opioids. Patient continues to do well with intrathecal therapy with decrease in pain symptoms and increase in functional status. Stopping intrathecal medications can lead to life threatening withdrawal, seizures, cardiac arrest, severe pain, and possible . Pumps that are not refilled at regular intervals can be damages and cause and need for replacement. We continually titrate dose and concentration to optimize pain relief and function. We are limited in concentration for certain drugs to safely deliver medications through the pump and stay within the recommendations from the Polyanalges[employer] Consensus Committee Guidelines. Depending on dose and concentration these pumps may need to be refilled sooner than 3 months as we titrate.
== END 2024-03-03 23:59 | disposition home or self-care (01) ==
PROVIDERS: PCP Emergency Medicine; Visit Provider Nurse Practitioner Family
DX: M51.16 Intervertebral disc disorders with radiculopathy, lumbar region (principal); M47.26 Other spondylosis with radiculopathy, lumbar region; M46.1 Sacroiliitis, not elsewhere classified; G89.4 Chronic pain syndrome; Z97.8 Presence of other specified devices; Z45.1 Encounter for adjustment and management of infusion pump
CPT/HCPCS: 62368; 99212; 99213; G0463

== ENCOUNTER 2024-04-08 11:36 | Day surgery (SDC) | payer MEDICARE, MEDICAID, SELFPAY ==
[2024-04-08 11:50] VITALS: BP 120/69; PULSE 84; PULSE 89; RESP 18; O2SAT 94
[2024-04-08 11:55] VITALS: BP 126/73; PULSE 90; RESP 18; TEMP 36.7; O2SAT 93; BMI 30.6
[2024-04-08 12:00] VITALS: BP 131/71; PULSE 87; RESP 18; O2SAT 93
--- NOTE | 2024-04-08 12:17 | EXP.PAIN.PRO ---
Procedure Date: 04/08/24 Time: 11:40 Anesthesiologist:: Per Wagoner CRNA Complications:: None Pre-procedure Diagnosis:: Degenerative disc lumbar spine multilevels. Lumbar radiculopathy. Lumbar facet arthropathy. Lumbar spondylosis. Sacroiliitis bilateral. Chronic pain syndrome. Post-procedure Diagnosis:: Same. Indications for Procedure:: Patient is a very pleasant 54-year-old female comes our clinic today for intrathecal pain pump interrogation and refill. Patient currently being managed with bupivacaine 10 mg/mL at a rate of 3.498 mg/day. Patient doing very well with her current settings. She is not requesting any changes. She does not report any side effects or complications. She rates her pain today 2/10. Procedure Details:: Details of the procedure explained to the patient. The patient taken procedure and placed in the sitting position. The area over the pump is cleansed using chlorhexidine's cleansing solution. The pump was interrogated. The pump was accessed with ease using a 22-gauge inch and half needle. 5.5 mL of solution was withdrawn discarded appropriate. The pump was then filled with 20 cc of solution containing bupivacaine 10 mg/mL. The rate will remain at 3.498 mg/day. Patient tolerated procedure without difficulty. There are no complications. Plan and Disposition:: Patient was discharged without incident.
== END 2024-04-08 12:00 | disposition home or self-care (01) ==
LOC: SC.PAINP 11:37
PROVIDERS: PCP Emergency Medicine; Visit Provider Nurse Anesthetist, Certified Registered
DX: M51.16 Intervertebral disc disorders with radiculopathy, lumbar region (principal); M47.26 Other spondylosis with radiculopathy, lumbar region; M46.1 Sacroiliitis, not elsewhere classified; G89.4 Chronic pain syndrome; Z97.8 Presence of other specified devices; Z45.1 Encounter for adjustment and management of infusion pump
CPT/HCPCS: 95991

== ENCOUNTER 2024-05-19 11:07 | Outpatient (POV) | payer MEDICARE, MEDICAID, SELFPAY ==
[2024-05-19 11:20] VITALS: BP 119/62; PULSE 82; RESP 16; O2SAT 94; BMI 30.8
--- NOTE | 2024-05-19 12:07 | P.PCN_ITS ---
Procedure Date: 05/19/24 Time: 11:39 Anesthesiologist:: Ines Christianson APRN Complications:: None Pre-procedure Diagnosis:: Degenerative disc disease of lumbar spine with lumbar radiculopathy symptoms, lumbar facet arthropathy, lumbar spondylosis, sacroiliitis, chronic pain syndrome Post-procedure Diagnosis:: same Indications for Procedure:: Patient is a pleasant 54-year-old female who presents today for follow-up. Today she rates her pain a 6 out of 10. Patient denies any new trauma or or injury. Patient is currently managed with bupivacaine 10 mg/mL with a daily dose of 3.498 mg/day. She denies any side effects from this medication. Patient is prescribed 300 mg pregabalin 3 times daily. She denies any side effects from this medication. Her Bruno has been reviewed and is appropriate. Physical Exam: General: Alert and oriented x3, no acute distress, pleasant and cooperative Lungs: Respirations even and unlabored, symmetrical chest expansion Eyes: PERRL Musculoskeletal: Flexion and extension of lumbar [spine] somewhat guarded secondary to pain, [antalgic gait noted] Neurological: Speech clear, no gross sensory deficit Procedure Details:: Informed consent was obtained and the risk and benefits of the procedure were e xplained to the patient. Patient was taken to the procedure room where noninvasive monitoring was placed including noninvasive blood pressure cuff and pulse oximeter. Patient's pump was interrogated and was reprogrammed to bupivacaine 3.853 mg/day. The patient tolerated the procedure well with no complications. Plan and Disposition:: Patient tolerated her intrathecal increase with no complications and was discharged neurologically intact. Patient will return to clinic tomorrow for her intrathecal pain pump refill and reprogram. We will see the patient back in the clinic at the next intrathecal refill. Patient has been instructed to contact the clinic with any concerns before the next appointment. Dr. Sethi has reviewed this note and agrees with this plan of care. This note was dictated using voice recognition software and make contain errors or omissions. -- It Is medically necessary for this patient to continue to have their intrathecal pump refilled at regular intervals. This patient had an intrathecal pain pump implanted after meeting criteria of chronic intractable pain for greater than 3 months and failing conservative treatments. Patient has committed and been compliant to the treatment plan and all planned follow up care. Since implantation of the intrathecal pain pump, the patient has had decreased pain and been more functional. Oral medications have been reduced including intake of oral opioids. Patient continues to do well with intrathecal therapy with decrease in pain symptoms and increase in functional status. Stopping intrathecal medications can lead to life threatening withdrawal, seizures, cardiac arrest, severe pain, and possible . Pumps that are not refilled at regular intervals can be damages and cause and need for replacement. We continually titrate dose and concentration to optimize pain relief and function. We are limited in concentration for certain drugs to safely deliver medications through the pump and stay within the recommendations from the Polyanalges[employer] Consensus Committee Guidelines. Depending on dose and concentration these pumps may need to be refilled sooner than 3 months as we titrate.
== END 2024-05-19 23:59 | disposition home or self-care (01) ==
PROVIDERS: PCP Emergency Medicine; Visit Provider Nurse Practitioner Family
DX: G89.4 Chronic pain syndrome (principal); M51.36 Other intervertebral disc degeneration, lumbar region; M47.26 Other spondylosis with radiculopathy, lumbar region
CPT/HCPCS: 99212; G0463

== ENCOUNTER 2024-05-20 10:18 | Day surgery (SDC) | payer MEDICARE, MEDICAID, SELFPAY ==
[2024-05-20 10:35] VITALS: BP 135/66; PULSE 75; RESP 16; TEMP 36.2; O2SAT 97; BMI 31.4
[2024-05-20 10:37] VITALS: BP 122/65; PULSE 94; RESP 18; O2SAT 97
--- NOTE | 2024-05-20 10:51 | EXP.PAIN.PRO ---
Procedure Date: 05/20/24 Time: 10:40 Anesthesiologist:: Per Wagoner CRNA Complications:: None Pre-procedure Diagnosis:: Degenerative disc lumbar spine multilevels. Lumbar radiculopathy. Lumbar facet arthropathy. Lumbar spondylosis. Sacroiliitis bilateral. Chronic pain syndrome. COPD. Post-procedure Diagnosis:: Same. Indications for Procedure:: Patient is a very pleasant 54-year-old female comes our clinic today for intrathecal pain pump interrogation and refill. Patient currently being managed with bupivacaine 10 mg/mL at a rate of 3.853 mg/day. Patient doing very well with her current settings. She does not request any changes. She does not report any side effects or complications. Procedure Details:: Details of the procedure were explained to the patient. The patient taken procedure and placed in the sitting position. The area of the pump was cleansed using chlorhexidine as a cleansing solution. The pump was interrogated. The pump was accessed with ease using a 22-gauge inch and half needle. 5 mL of solution was withdrawn discarded appropriately. The pump was then filled with 20 cc of solution containing bupivacaine 10 mg/mL. Patient tolerated procedure without difficulty. There is no complications. Plan and Disposition:: Patient was discharged without incident.
[2024-05-20 10:55] VITALS: BP 109/68; PULSE 88; RESP 18; O2SAT 94
== END 2024-05-20 10:55 | disposition home or self-care (01) ==
PROVIDERS: PCP Emergency Medicine; Visit Provider Nurse Anesthetist, Certified Registered
DX: M47.26 Other spondylosis with radiculopathy, lumbar region (principal); M51.36 Other intervertebral disc degeneration, lumbar region; G89.4 Chronic pain syndrome; J44.9 Chronic obstructive pulmonary disease, unspecified
CPT/HCPCS: 95991

== ENCOUNTER 2024-06-18 09:01 | Outpatient (POV) | payer MEDICARE, MEDICAID, SELFPAY ==
[2024-06-18 09:20] VITALS: BP 123/75; PULSE 80; RESP 18; O2SAT 95; BMI 30.9
--- NOTE | 2024-06-18 09:31 | A.OFFVIS_ITS ---
[facility] [place] Disclaimer: The information contained in this section may have been updated after the patient was seen, as this information can be updated by other users. 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 Today she rates her pain a 5 out of 10. Patient denies any new trauma or or injury. She does state that she has been experiencing significant pain over the last couple of months in her low back and hip area. Patient denies any radiating symptoms down into her legs. She does describe it as an aching, throbbing sensation that is worse with certain movements such as prolonged sitting or standing or walking. Patient does states she is tender to touch in her low back area. Patient is interested in any help we may be able to provide. Patient is currently managed with bupivacaine 10 mg/mL . She denies any side effects from this medication. Patient is prescribed 300 mg pregabalin 3 times daily, diclofenac 75 mg and Flexeril 10 mg 3 times daily. She states due to this worsening pain she has had to rely more on medications however they are only doing minimal. Her Bruno has been reviewed and is appropriate. Review of Systems: General: No recent weight changes, no fever, no sleep disturbances Respiratory: No cough, no shortness of air, no recurring pulmonary infections Cardiovascular/peripheral vascular: No chest pain, no palpitations, no edema, no shortness of breath Gastrointestinal: No new onset incontinence, normal bowel movements reported Genitourinary: No new onset incontinence Musculoskeletal: Low back pain, bilateral hip pain Psychiatric: [Normal mood/affect] Neurological: [Denies weakness in extremities], [denies balance issues] Pain at rest (0-10 scale): 5 Objective Objective:: Physical Exam: General: Alert and oriented x3, no acute distress, pleasant and cooperative Lungs: Respirations even and unlabored, symmetrical chest expansion Eyes: PERRL Musculoskeletal: Flexion and extension of lumbar [spine] somewhat guarded secondary to pain, [antalgic gait noted] point tenderness along bilateral SIs with positive bilateral Vel's, Gucci's, Gaenslen's, compression and distraction exam Neurological: Speech clear, no gross sensory deficit Has patient had previous pain injection?: No Conservative treatment options previously tried: Home exercise plan Length of treatment: Longer than 8> weeks and Prescription medications Length of treatment: Longer than 8 weeks Meds Home Medications and Allergies Home Medications ?Medication ?Instructions ?Recorded ?Confirmed ?Type buspirone 10 mg tablet 10 mg PO BID mood 05/12/21 06/18/24 History estradiol 0.5 mg tablet 0.5 mg PO DAILY HRT 05/12/21 06/18/24 History montelukast 10 mg tablet 10 mg PO PM allergies 05/12/21 06/18/24 History paroxetine HCl 40 mg tablet 40 mg PO DAILY mood 05/12/21 06/18/24 History pantoprazole 40 mg tablet,delayed 40 mg PO DAILY Reflux/Acid reflux 07/07/21 06/18/24 History release lidocaine-prilocaine 2.5 %-2.5 % 1 applic topical .COMPLEX Pain 09/08/21 06/18/24 History topical cream hydroxyzine HCl 50 mg tablet 50 mg PO TID Pain 11/29/21 06/18/24 History buprenorphine 2 mg-naloxone 0.5 mg 1 film sublingual DAILY Pain 01/23/22 06/18/24 History sublingual film aspirin 81 mg tablet,delayed 81 mg PO DAILY Blood thinner 03/23/22 06/18/24 History release diclofenac sodium 75 mg 75 mg PO DAILY Pain 03/23/22 06/18/24 History tablet,delayed release metformin 500 mg tablet 500 mg PO DAILY Diabetes 08/03/22 06/18/24 History ondansetron HCl 8 mg tablet 8 mg PO DAILY PRN Stomach Upset 08/03/22 06/18/24 History famotidine 40 mg tablet 40 mg PO DAILY STOMACH 08/21/22 06/18/24 History pravastatin 40 mg tablet 40 mg PO DAILY Cholesterol 08/21/22 06/18/24 History cetirizine 10 mg tablet 10 mg PO DAILY ALLERGIES 11/13/22 06/18/24 History albuterol sulfate 90 mcg/actuation 1 puff inhalation DIRECTED PRN 12/05/22 06/18/24 History aerosol inhaler (ProAir HFA) BREATHING diltiazem HCl 30 mg tablet 30 mg PO ONCE HEART 12/05/22 06/18/24 History amantadine HCl 100 mg tablet 100 mg PO DIRECTED . 10/15/23 06/18/24 History fluticasone propionate 50 50 mcg intranasal DIRECTED 10/15/23 06/18/24 History mcg/actuation nasal Breathing Problems spray,suspension fluticasone fur. 200 mcg-umeclid 1 inh inhalation DAILY 01/07/24 06/18/24 History 62.5 mcg-vilant 25 mcg inhalat.powder (Trelegy Ellipta) urea 40 % topical cream 1 applic topical BID 3 months #60 01/07/24 06/18/24 Rx applic cyclobenzaprine 10 mg tablet 10 mg PO TID PRN muscle spasm #90 02/18/24 06/18/24 Rx tabs pregabalin 300 mg capsule 300 mg PO TID #90 caps 05/14/24 06/18/24 Rx melatonin 5 mg capsule 5 mg PO HS 06/16/24 06/18/24 History semaglutide 2 mg/dose (8 mg/3 mL) 2 mg SQ WEEKLY 06/16/24 06/18/24 History subcutaneous pen injector (Ozempic) trazodone 100 mg tablet 200 mg PO HS 06/16/24 06/18/24 History New Prescriptions to Start Prescriptions: Allergies Allergy/AdvReac Type Severity Reaction Status Date / Time Sulfa (Sulfonamide Allergy Verified 06/16/24 11:14 Antibiotics) Assessment and Plan *Assessment and plan (1) Bilateral sacroiliitis: Status: Acute Category: Medical Code(s): M46.1 - Sacroiliitis, not elsewhere classified Plan Patient is experiencing worsening pain in her low back and hips with point tenderness across her bilateral SIs and a positive bilateral Vel's, Gucci's, Gaenslen's, compression and distraction exam. I did continue to benefit from bilateral SI injections. Risk and benefits were discussed with patient and she would like to proceed forward with this plan of care. Patient has tried and failed conservative therapy including continued at home stretching exercise for longer than 8 weeks. We will submit to insurance for bilateral SI injections under fluoroscopy. Patient has been instructed to contact the clinic with any concerns before the next appointment. Dr. Sethi has reviewed this note and agrees with this plan of care. This note was dictated using voice recognition software and make contain errors or omissions.
== END 2024-06-18 23:59 | disposition home or self-care (01) ==
LOC: SC.PAIN 09:01
PROVIDERS: PCP Emergency Medicine; Visit Provider Nurse Practitioner Family
DX: M46.1 Sacroiliitis, not elsewhere classified (principal)
CPT/HCPCS: 99212; G0463

== ENCOUNTER 2024-06-24 09:49 | Day surgery (SDC) | payer MEDICARE, MEDICAID, SELFPAY ==
[2024-06-24 10:04] VITALS: BP 128/66; PULSE 82; RESP 16; TEMP 36.6; O2SAT 92; BMI 30.9
[2024-06-24 10:15] VITALS: BP 129/69; PULSE 86; RESP 18; O2SAT 96
[2024-06-24 10:17] VITALS: BP 129/69; PULSE 84; RESP 18; O2SAT 96
--- NOTE | 2024-06-24 10:23 | EXP.PAIN.PRO ---
Procedure Date: 06/24/24 Time: 10:00 Anesthesiologist:: Per Wagoner CRNA Complications:: None Pre-procedure Diagnosis:: Degenerative disc lumbar spine multilevels. Lumbar radiculopathy. Lumbar facet arthropathy. Lumbar spondylosis. Bilateral sacroiliitis. Chronic pain syndrome. COPD. Post-procedure Diagnosis:: Same. Indications for Procedure:: Patient is a very pleasant 54-year-old female comes our clinic today for intrathecal pain pump interrogation and refill. She is currently being managed with bupivacaine 10 mg/mL at a rate of 3.853 mg/day. She is reporting some bilateral hip and leg radicular symptoms with activity. She was requesting an increase. I think this is reasonable. Will increase her by 5%. She rates her pain today 05/05. Procedure Details:: Details of the procedure explained the patient. The patient taken procedure and placed in sitting position. They over the pumps cleansed using chlorhexidine's cleansing solution. The pump was interrogated. The pump was accessed with ease using a 22-gauge inch and half needle. 6.5 mL of solution was withdrawn discarded appropriate. The pump was then filled with 20 cc of solution containing bupivacaine 10 mg/mL. The rate will increase to 4.043 mg today. Patient tolerated procedure without difficulty. No complications. Plan and Disposition:: Patient was discharged without incident.
[2024-06-24 10:26] VITALS: BP 111/69; PULSE 82; RESP 20; O2SAT 95
== END 2024-06-24 10:28 | disposition home or self-care (01) ==
PROVIDERS: PCP Emergency Medicine; Visit Provider Nurse Anesthetist, Certified Registered
DX: G89.4 Chronic pain syndrome (principal); M47.26 Other spondylosis with radiculopathy, lumbar region; M51.36 Other intervertebral disc degeneration, lumbar region; M46.1 Sacroiliitis, not elsewhere classified; J44.9 Chronic obstructive pulmonary disease, unspecified
CPT/HCPCS: 95991

== ENCOUNTER 2024-07-22 09:08 | Day surgery (SDC) | payer MEDICARE, MEDICAID, SELFPAY ==
[2024-07-22 09:38] VITALS: BP 104/73; PULSE 77; RESP 16; TEMP 36.7; O2SAT 95; BMI 30.9
[2024-07-22] MEDS: BUPIVACAINE 0.25% 10ML INJ 25 MG IJ (09:58)
[2024-07-22 09:59] VITALS: BP 116/66; PULSE 78; RESP 18; O2SAT 96
[2024-07-22] MEDS: methylPREDNISolone ACETATE 80MG/ML VIAL 80 MG (09:59)
[2024-07-22] MEDS: LIDOCAINE 1% 5ML PF VIAL 5 ML (09:59)
[2024-07-22 10:00] VITALS: BP 116/66; PULSE 76; RESP 18; O2SAT 96
--- NOTE | 2024-07-22 10:05 | P.PCN_ITS ---
Procedure Date: 07/22/24 Time: 10:00 Anesthesiologist:: Per Wagoner CRNA Complications:: None Pre-procedure Diagnosis:: Degenerative disc lumbar spine multilevels. Lumbar radiculopathy. Lumbar facet arthropathy. Lumbar spondylosis. Bilateral sacroiliitis. Chronic pain syndrome. COPD. Oxygen dependent. Post-procedure Diagnosis:: Same. Indications for Procedure:: Patient is a pleasant 54-year-old female comes to clinic today for bilateral sacroiliac joint injections of cortisone and local anesthetic. She describes a lumbar back pain off the midline bilaterally. She describes the pain as constant, dull, aching. She rates pain 7/10. She reports having difficulty transitioning from sitting to standing. Ambulation and or sitting increases pain. Procedure Details:: Procedure: Bilateral sacroiliac joint injections under fluoroscopy Informed consent was obtained and the risks and benefits of the procedure were explained to the patient.~ The patient was taken to the procedure room and noninvasive monitors were placed including a noninvasive blood pressure cuff and pulse oximeter.~ The patient was placed prone on the procedure table. Both hips were cleansed using Betadine as a cleansing solution. C-arm fluoroscopy was used to view the right sacroiliac joint.~ The skin and subcutaneous tissues were anesthetized using lidocaine 1.5% and a 25-gauge needle.~ After this, a 22-gauge spinal needle was inserted under fluoroscopic guidance into the inferior aspect of the right sacroiliac joint.~ Omnipaque dye was injected and good spread was seen throughout the joint.~ After this, approximately 5 mL of bupivacaine, 0.25% and Depo-Medrol, 40 mg was incrementally injected into the right sacroiliac joint. We then moved to the left sacroiliac joint.~ The skin and subcutaneous tissues were anesthetized using lidocaine 1.5% and a 25-gauge needle.~ After this, a 22- gauge spinal needle was inserted under fluoroscopic guidance into the inferior aspect of the left sacroiliac joint.~ Omnipaque dye was injected and good spread was seen throughout the joint. After this, approximately 5 mL of bupivacaine, 0.25% and Depo-Medrol, 40 mg was incrementally injected into the left sacroiliac joint.~ The patient tolerated the procedure well with no complications. The patient was observed in the Pain Clinic and then was discharged home neurologically intact. Plan and Disposition:: Patient was discharged without incident.
[2024-07-22 10:06] VITALS: BP 129/81; PULSE 74; RESP 18; O2SAT 95
== END 2024-07-22 10:06 | disposition home or self-care (01) ==
PROVIDERS: PCP Emergency Medicine; Visit Provider Nurse Anesthetist, Certified Registered
DX: M51.16 Intervertebral disc disorders with radiculopathy, lumbar region (principal); M47.26 Other spondylosis with radiculopathy, lumbar region; M46.1 Sacroiliitis, not elsewhere classified; G89.4 Chronic pain syndrome; J44.9 Chronic obstructive pulmonary disease, unspecified; Z99.81 Dependence on supplemental oxygen
CPT/HCPCS: 27096; G0260; J1010

== ENCOUNTER 2024-07-29 09:56 | Day surgery (SDC) | payer MEDICARE, MEDICAID, SELFPAY ==
[2024-07-29 10:18] VITALS: BP 124/70; PULSE 72; RESP 16; TEMP 36.2; O2SAT 98; BMI 30.4
--- NOTE | 2024-07-29 10:47 | EXP.PAIN.PRO ---
Procedure Date: 07/29/24 Time: 10:40 Anesthesiologist:: Per Wagoner CRNA Complications:: None Pre-procedure Diagnosis:: Degenerative disc lumbar spine multilevels. Lumbar radiculopathy. Lumbar facet arthropathy. Lumbar spondylosis. Bilateral sacroiliitis. Chronic pain syndrome. COPD. Post-procedure Diagnosis:: Same. Indications for Procedure:: Patient is a very pleasant 54-year-old female that comes our clinic today for intrathecal pain pump interrogation and refill. Patient is currently being managed with morphine sulfate 20 mg/mL rated 2.7 mg/day. She is doing very well to current changes. She not reporting any side effects or complications. She not requesting changes. Procedure Details:: Details of the procedure explained to the patient. The patient taken procedure room placed in supine position on the fluoroscopy table. The air over the pump was cleansed using chlorhexidine as a cleansing solution. Using fluoroscopy guidance the pump was accessed with ease using a 22-gauge inch and half needle. 5 mL of solution was withdrawn discarded appropriate. The pump was then filled with 20 cc of solution containing morphine sulfate 20 mg/mL. Pump rate will continue at 2.7 mg/day. Patient tolerated procedure without difficulty. There are no complications. Plan and Disposition:: Patient was discharged without incident.
[2024-07-29 10:51] VITALS: BP 137/79; PULSE 71; RESP 18; O2SAT 96
[2024-07-29 10:52] VITALS: BP 137/79; PULSE 71; RESP 18; O2SAT 96
--- NOTE | 2024-07-29 10:58 | EXP.PAIN.PRO ---
Procedure Date: 07/29/24 Time: 11:00 Anesthesiologist:: Per Wagoner CRNA Complications:: None Pre-procedure Diagnosis:: Degenerative disc lumbar spine multilevels. Lumbar radiculopathy. Lumbar postlaminectomy syndrome. COPD. Chronic pain syndrome. Post-procedure Diagnosis:: Same. Indications for Procedure:: Patient is a very pleasant 54-year-old female comes to clinic today for intrathecal pain pump interrogation and refill. Patient currently being managed with bupivacaine 10 mg/mL at a rate of 4.043 mg/day. Patient is requesting increase in the pump rate. She is having some low lumbar back pain with activity. I think this is reasonable. Will increase her by 5% today her new rate will be 4.245 mg/day. Patient is O2 dependent due to severe COPD. Patient is awake alert [place] x 3. In no acute distress. Flexion-extension lumbar spine somewhat guarded secondary to pain. Deep tendon reflexes upper lower extremities normal. Motor strength upper lower extremities normal. There is no gross sensory deficit. Gait is normal. Procedure Details:: Details of the procedure explained to the patient. The patient taken the procedure room placed in sitting position. There were the pump's cleansing chlorhexidine's cleansing solution. The pump was interrogated. The pump was accessed with ease using a 22-gauge inch and half needle. 5 mL of solution was drawn discarded appropriate. The pump was then filled with 20 cc of solution containing bupivacaine 10 mg/mL. The rate will increase by 5%. Her new rate will be 4.245 mg/day. Patient tolerated procedure without difficulty. There are no complications. Plan and Disposition:: Patient was discharged without incident.
[2024-07-29 11:01] VITALS: BP 139/79; PULSE 72; RESP 20; O2SAT 98
== END 2024-07-29 11:01 | disposition home or self-care (01) ==
PROVIDERS: PCP Emergency Medicine; Visit Provider Nurse Anesthetist, Certified Registered
DX: M51.36 Other intervertebral disc degeneration, lumbar region (principal); M47.816 Spondylosis without myelopathy or radiculopathy, lumbar region; M46.1 Sacroiliitis, not elsewhere classified; G89.4 Chronic pain syndrome; J44.9 Chronic obstructive pulmonary disease, unspecified; F17.210 Nicotine dependence, cigarettes, uncomplicated
CPT/HCPCS: 95991

== ENCOUNTER 2024-09-02 10:37 | Day surgery (SDC) | payer MEDICARE, MEDICAID, SELFPAY ==
[2024-09-02 11:05] VITALS: BP 115/73; BP 134/90; PULSE 70; PULSE 92; RESP 16; RESP 18; TEMP 36.8; O2SAT 94; BMI 31.4
--- NOTE | 2024-09-02 11:26 | EXP.PAIN.PRO ---
Procedure Date: 09/02/24 Time: 10:30 Anesthesiologist:: Per Wagoner CRNA Complications:: None Pre-procedure Diagnosis:: Degenerative disc lumbar spine multilevels. Lumbar radiculopathy. Lumbar +. Syndrome. COPD. Chronic pain syndrome. Post-procedure Diagnosis:: Same. Indications for Procedure:: Patient is pleasant 54-year-old female comes our clinic today for intrathecal pain pump interrogation and refill. She is currently being managed with bupivacaine 10 mg/mL at a rate of 4.245 mg/day. She is doing very well to current settings. She is not requesting any changes. She not reporting side effects or complications. She rates her pain 4/10. Procedure Details:: Details of the procedure explained to the patient. The patient taken procedure and placed in sitting position. The area of the pump was cleansed using chlorhexidine as a cleansing solution. The pump was interrogated. The pump was accessed with ease using a 22-gauge inch and half needle. 4.5 mL of solution was withdrawn and discarded appropriately. The pump was then filled with 20 cc of solution containing bupivacaine 10 mg/mL. Patient tolerated procedure without difficulty. No complications. Plan and Disposition:: Patient was discharged without incident.
--- NOTE | 2024-09-02 11:31 | XR_ITS ---
FINAL REPORT CLINICAL HISTORY: Acute left foot pain. FINDINGS: LEFT FOOT 4 views of the left foot demonstrate no acute fracture or dislocation. There are mild degenerative changes. Calcaneal spurs are present. The soft tissues are unremarkable. IMPRESSION: No acute bony abnormality. Degenerative change. Reviewed, Interpreted and Dictated by Roger Sanchez III, MD Transcribed by Raegan Best PA-C Authenticated and [facility]
== END 2024-09-02 11:22 | disposition home or self-care (01) ==
PROVIDERS: PCP Emergency Medicine; Visit Provider Nurse Anesthetist, Certified Registered
DX: M51.16 Intervertebral disc disorders with radiculopathy, lumbar region (principal); M96.1 Postlaminectomy syndrome, not elsewhere classified; G89.4 Chronic pain syndrome; J44.9 Chronic obstructive pulmonary disease, unspecified; M79.672 Pain in left foot
CPT/HCPCS: 73630; 95991

== ENCOUNTER 2024-09-08 14:43 | Outpatient (POV) | payer MEDICARE, MEDICAID, SELFPAY ==
[2024-09-08 15:30] VITALS: BP 116/83; PULSE 103; RESP 20; O2SAT 96; BMI 31.4
--- NOTE | 2024-09-08 16:51 | EXP.PAIN.PRO ---
Procedure Date: 09/08/24 Time: 15:07 Anesthesiologist:: Ines Christianson APRN Complications:: None Pre-procedure Diagnosis:: Degenerative disc disease of lumbar spine with lumbar radiculopathy symptoms, sacroiliitis Post-procedure Diagnosis:: Same Indications for Procedure:: Patient is a pleasant 54-year-old female who presents today for follow-up and worsening pain. Patient states that she has been experiencing more pain along her right hip and feels like she may have pulled something or pop something. Patient states she feels like she just moved the wrong way. She does describe the pain as an aching, throbbing sensation that is very tender and affects her ability to perform activities of daily living such as cooking and cleaning. Patient is currently managed with bupivacaine 10 mg/mL with a daily dose of 4.245 mg/day. She denies any side effects from this medication. She feels like that it was working really well however due to her worsening pain that she could use adjustment. Her Bruno has been reviewed and is appropriate. Physical Exam: General: Alert and oriented x3, no acute distress, pleasant and cooperative Lungs: Respirations even and unlabored, symmetrical chest expansion Eyes: PERRL Musculoskeletal: Flexion and extension of lumbar [spine] somewhat guarded secondary to pain, [antalgic gait noted] point tenderness along right SI with positive right Vel's, Gucci's, Gaenslen's, compression and distraction exam Neurological: Speech clear, no gross sensory deficit Procedure Details:: Informed consent was obtained and the risk and benefits of the procedure were explained to the patient. Patient was taken to the procedure room where noninvasive monitoring was placed including noninvasive blood pressure cuff and pulse oximeter. Patient's pump was interrogated and was reprogrammed to bupivacaine 4.878 mg/day. The patient tolerated the procedure well with no complications. Plan and Disposition:: Patient tolerated her intrathecal increase with no complications. Patient did have limited range of motion of her lumbar spine with point tenderness along her right SI and a positive right Vel's, Gucci's, Gaenslen's, compression and distraction exam. I did discuss with the patient that she may benefit from right SI injection. Risk and benefits were discussed with the patient and she would like to proceed forward with this plan of care. Patient has tried and failed conservative therapy including continued at home stretching exercise for longer than 6 weeks. Patient will be scheduled for right SI injection under fluoroscopy. We will see the patient back in the clinic at the next intrathecal refill. Patient has been instructed to contact the clinic with any concerns before the next appointment. Dr. Sethi has reviewed this note and agrees with this plan of care. This note was dictated using voice recognition software and make contain errors or omissions. -- It Is medically necessary for this patient to continue to have their intrathecal pump refilled at regular intervals. This patient had an intrathecal pain pump implanted after meeting criteria of chronic intractable pain for greater than 3 months and failing conservative treatments. Patient has committed and been compliant to the treatment plan and all planned follow up care. Since implantation of the intrathecal pain pump, the patient has had decreased pain and been more functional. Oral medications have been reduced including intake of oral opioids. Patient continues to do well with intrathecal therapy with decrease in pain symptoms and increase in functional status. Stopping intrathecal medications can lead to life threatening withdrawal, seizures, cardiac arrest, severe pain, and possible . Pumps that are not refilled at regular intervals can be damages and cause and need for replacement. We continually titrate dose and concentration to optimize pain relief and function. We are limited in concentration for certain drugs to safely deliver medications through the pump and stay within the recommendations from the Polyanalges[employer] Consensus Committee Guidelines. Depending on dose and concentration these pumps may need to be refilled sooner than 3 months as we titrate.
== END 2024-09-08 23:59 | disposition home or self-care (01) ==
PROVIDERS: PCP Emergency Medicine; Visit Provider Nurse Practitioner Family
DX: M51.16 Intervertebral disc disorders with radiculopathy, lumbar region (principal); M46.1 Sacroiliitis, not elsewhere classified; Z73.89 Other problems related to life management difficulty
CPT/HCPCS: 62368; 99213; G0463

== ENCOUNTER 2024-09-30 09:23 | Day surgery (SDC) | payer MEDICARE, MEDICAID, SELFPAY ==
[2024-09-30 09:42] VITALS: BP 126/61; PULSE 86; RESP 16; TEMP 36.6; O2SAT 92; BMI 30.9
[2024-09-30 09:48] VITALS: BP 116/62; PULSE 86; RESP 18; O2SAT 94
[2024-09-30 09:50] VITALS: BP 116/62; PULSE 86; RESP 18; O2SAT 94
[2024-09-30 10:01] VITALS: BP 105/70; PULSE 88; RESP 16; O2SAT 94
--- NOTE | 2024-09-30 10:23 | P.PCN_ITS ---
Procedure Date: 09/30/24 Time: 09:40 Anesthesiologist:: Per Wagoner CRNA Complications:: None Pre-procedure Diagnosis:: Degenerative disc lumbar spine multilevels. Lumbar radiculopathy. Lumbar postlaminectomy syndrome. Bilateral sacroiliitis. Post-procedure Diagnosis:: Same. Indications for Procedure:: Patient is a pleasant 54-year-old female who comes our clinic today for intrathecal pain pump interrogation and refill. Patient currently being managed with bupivacaine 10 mg/mL at a rate of 4.878 mg/day. Patient is not reporting any side effects or complications. She does not request any changes. Patient is awake alert [place] x 3. No acute distress. Flexion tension lumbar spine very guarded secondary to pain. Deep tendon reflexes normal. Motor strength normal. Normal gait. Patient reporting severe low lumbar back pain off the midline bilaterally. Left greater than right.. Patient has extreme point tenderness over the left sacroiliac joint. Patient is scheduled October 21, 2024 for bilateral sacroiliac joint injections. Procedure Details:: Details of the procedure explained to the patient. The patient taken procedure and placed in sitting position. They over the pumps cleansed using chlorhexidine as a cleansing solution. The pump was interrogated. The pump was accessed with ease using a 22-gauge inch and half needle. 5 mL of solution was withdrawn and discarded appropriately. The pump was then filled with 20 cc of solution containing bupivacaine 10 mg/mL. Patient tolerated procedure without difficulty. There are no complications. No change in rate. Plan and Disposition:: Patient was discharged without incident.
== END 2024-09-30 10:01 | disposition home or self-care (01) ==
LOC: SC.PAINP 09:24
PROVIDERS: PCP Emergency Medicine; Visit Provider Nurse Anesthetist, Certified Registered
DX: M51.16 Intervertebral disc disorders with radiculopathy, lumbar region (principal); M96.1 Postlaminectomy syndrome, not elsewhere classified; M46.1 Sacroiliitis, not elsewhere classified
CPT/HCPCS: 95991

== ENCOUNTER 2024-09-30 11:28 | Emergency (ER) | payer MEDICARE, MEDICAID, SELFPAY ==
[2024-09-30 11:29] VITALS: BP 117/57; PULSE 83; RESP 22; TEMP 36.9; O2SAT 91; BMI 31.5
--- NOTE | 2024-09-30 11:40 | ECG_ITS ---
APPROVED REPORT Exam: Resting ECG HR:78 bpm ECG Measurements Heart Rate 78 AXES DC 156 P 51 QRSd 81 QRS 50 QT 388 T 40 QTc 421 Conclusion SINUS RHYTHM LOW QRS VOLTAGE IN PRECORDIAL LEADS [QRS DEFLECTION < 1.0 mV IN CHEST LEADS] BORDERLINE ECG Electronically signed by : HOLLEY GRIFFIN, 09/30/2024 15:28:15
--- NOTE | 2024-09-30 12:08 | XR_ITS ---
PROCEDURE INFORMATION: Exam: XR Chest Exam date and time: 09/30/2024 12:16 PM Age: 54 years old Clinical indication: Shortness of breath; Additional info: SOA TECHNIQUE: Imaging protocol: Radiologic exam of the chest. Views: 1 view. COMPARISON: CR XR CHEST PORTABLE 02/01/2023 12:55 PM FINDINGS: Lungs: There is poor ventilation of the lungs, with perihilar vascular crowding and a diffuse increase in pulmonary parenchymal density. Bandlike opacity in left lower lobe favored to represent atelectasis. Unchanged left lower lobe granuloma. No evidence of pneumonia or interstitial edema. Pleural spaces: Unremarkable. No pleural effusion. No pneumothorax. Heart/Mediastinum: Unremarkable. No cardiomegaly. Bones/joints: Unremarkable. IMPRESSION: 1. Bandlike opacity in left lower lobe favored to represent atelectasis. 2. Unchanged left lower lobe granuloma. No evidence of pneumonia or interstitial edema.
[2024-09-30 12:10] LABS: Lactate Venous 1.6 mmol/L (0.4-2.0); VBG Base Excess 6.2 mmol/L (-2.4-2.3); VBG HCO3 31.7 mmol/L (23-30); VBG Oxygen Saturation 75.9 % (50-70); VBG PH 7.36 mmol/L (7.31-7.41); VBG PO2 40.1 mmol/L (28-40); VBG Total CO2 33.4 mmol/L (23-27)
[2024-09-30 12:12] LABS: Microscopic, Urine URINE MICROSCOPIC (MICROSCOPIC)
[2024-09-30 12:14] LABS: VBG PCO2 57.2 mmol/L (35-51)
[2024-09-30 12:30] LABS: Basophils # 0.1 K/mm3 (0-0.2); Eosinophils # 0.3 K/mm3 (0.0-0.4); Eosinophils % 2.8 % (0.1-12.0); Hematocrit 42.8 % (37.0-47.0); Hemoglobin 14.2 g/dL (12.2-16.2); Lymphocytes # 2.9 K/mm3 (0.7-4.5); Lymphocytes % 24.5 % (10-50); Mean Corpuscular HGB Conc 33.2 g/dL (31.8-35.4); Mean Corpuscular Hemoglobin 29.2 pg (27.0-31.2); Mean Platelet Volume 9.2 fl (7.4-10.4); Monocytes # 0.7 K/mm3 (0.1-1.0); Monocytes % 5.8 % (1.7-9.3); Neutrophils # 7.7 K/mm3 (1.8-7.8); Neutrophils % 65.8 % (37.0-80.0); Platelet Count 211 K/mm3 (142-424); Red Blood Count 4.87 M/mm3 (4.20-5.40); Red Cell Distribution Width 13.9 % (11.5-17.5); White Blood Count 11.7 K/mm3 (4.8-10.8)
[2024-09-30 12:31] LABS: Alanine Aminotransferase 21 U/L (12-78); Albumin Level 4.2 g/dl (3.5-5.0); Albumin/Globulin Ratio 1.4 (1.1-1.8); Alkaline Phosphatase 109 U/L (38-126); Anion Gap 6.6 mEq/L (5-15); Aspartate Amino Transferase 32 U/L (14-36); Bilirubin,Total 0.4 mg/dl (0.2-1.3); Blood Urea Nitrogen 12 mg/dl (7-17); Calcium 9.1 mg/dl (8.4-10.2); Carbon Dioxide 38 mmol/L (22.0-30.0); Chloride 100 mmol/L (98-107); Creatinine Clearance Estimated 95 mL/min (50-200); Estimated Glomerular Filt Rate 74 ml/min (>60); GFR (African American) 90 ML/MIN (>60); Glucose 80 mg/dl (74-100); Potassium 3.6 mmoL/L (3.5-5.1); Sodium 141 mmol/L (136-145); Total Protein,Serum 7.2 g/dl (6.3-8.2)
[2024-09-30 12:33] LABS: Appearance,Urine CLEAR (Clear); Bilirubin,Urine Negative (Negative); Blood, Urine Negative (Negative); Color,Urine YELLOW (Yellow); Glucose,Urine (UA) Negative (Negative); Ketones,Urine Negative (Negative); Lactic Acid 1.1 mmol/L (0.7-2.1); Leukocyte Esterase,Urine TRACE (Negative); Nitrate,Urine Negative (Negative); PH,Urine 7.5 (5.0-8.5); Protein,Urine Negative (Negative); Urobilinogen,Urine 0.2 EU/dl (0.2)
--- NOTE | 2024-09-30 12:33 | HMH.EDGENADL ---
Discharge Plan Disposition Patient Disposition: Home, Self-Care Condition: Good Prescriptions Prescriptions: No Action hydroxyzine HCl 50 mg tablet 50 mg PO TID metformin 500 mg tablet 500 mg PO DAILY ondansetron HCl 8 mg tablet 8 mg PO DAILY PRN (Reason: Stomach Upset) pravastatin 40 mg tablet 40 mg PO DAILY famotidine 40 mg tablet 40 mg PO DAILY diltiazem HCl 30 mg tablet 30 mg PO ONCE albuterol sulfate [ProAir HFA] 90 mcg/actuation HFA aerosol inhaler 1 puff inhalation DIRECTED PRN (Reason: BREATHING) amantadine HCl 100 mg tablet 100 mg PO DIRECTED fluticasone propionate 50 mcg/actuation spray,suspension 50 mcg intranasal DIRECTED lidocaine-prilocaine 2.5-2.5 % cream 1 applic TP .COMPLEX Rx Instructions: 1 applic topical 5XDAY; buprenorphine-naloxone 2-0.5 mg film 1 film SL DAILY diclofenac sodium 75 mg tablet,delayed release (DR/EC) 75 mg PO DAILY aspirin 81 mg tablet,delayed release (DR/EC) 81 mg PO DAILY cetirizine 10 mg tablet 10 mg PO DAILY Trelegy Ellipta 200-62.5-25 mcg blister with device 1 inh inhalation DAILY Patient Comments: INHALE 1 PUFF BY MOUTH EVERY DAY urea 40 % cream 1 applic topical BID 90 Days Qty: 60 3RF trazodone 100 mg tablet 200 mg PO HS Patient Comments: TAKE 2 TABLETS BY MOUTH AT BEDTIME melatonin 5 mg capsule 5 mg PO HS Patient Comments: TAKE 1 CAPSULE BY MOUTH EVERY NIGHT AT BEDTIME Ozempic 2 mg/dose (8 mg/3 mL) pen injector 2 mg SQ WEEKLY Patient Comments: INJECT 2MG SUBCUTANEOUSLY ONCE WEEKLY buspirone 10 MG tablet 10 mg PO BID montelukast 10 MG tablet 10 mg PO PM estradiol 0.5 MG tablet 0.5 mg PO DAILY paroxetine HCl 40 MG tablet 40 mg PO DAILY pantoprazole 40 mg tablet,delayed release (DR/EC) 40 mg PO DAILY cyclobenzaprine 10 mg tablet 10 mg PO TID PRN (Reason: muscle spasm) Qty: 90 2RF pregabalin 300 mg capsule 300 mg PO TID Qty: 90 2RF Referrals Follow up/Referrals: Provider,Referral, MD [Primary Care Provider] - See instructions Activity Restrictions/Add. Instructions Additional Instructions/Restrictions: You were evaluated in the emergency department today. At this time, your workup is reassuring. Please follow-up very closely with your primary care provider for recheck of your blood pressure. I also recommend keeping a close eye on it at home. Return to the emergency department right away for new or worsening symptoms. Make sure you stay hydrated. Clinical Impressions Clinical Impression: General weakness Instructions Patient Instructions: DI for Muscle Weakness Print Language Print Language: Faroese Discharge ED Provider: Ines Betts General Adult HPI General Chief complaint: Shortness of Breath/Dyspnea Stated complaint: low bp, weakness Time Seen by Provider: 09/30/24 11:45 Mode of Arrival: Wheelchair Source of Information: Patient Limitations: No Limitations Description of Symptoms (Recalled from ER Triage Doc. by RN): short of breath. low 02 History of Present Illness HPI narrative: This patient is a 54-year-old female with a history of COPD chronically on home oxygen, diabetes, hypertension, hyperlipidemia, and GERD as well as foot fracture for which she is followed by podiatry presenting to the emergency department for evaluation with concern for low blood pressure in outpatient clinic. Patient reports that she went to podiatry today for follow-up and also had her pain pump refilled and they noted her blood pressure was low in podiatry clinic. They kept rechecking and it was still low. Patient states that overall, she is not been feeling well for 3 days. Nothing specific such as any pain anywhere, chest pain, shortness of breath, increasing cough, or other concerns. She states overall she has been feeling very shaky and off. She also states that her anxiety is really high. I reviewed outpatient podiatry records and noted her blood pressure was 87/37 on initial check. Related Data Home Medications ?Medication ?Instructions ?Recorded ?Confirmed buspirone 10 mg tablet 10 mg PO BID mood 05/12/21 09/30/24 estradiol 0.5 mg tablet 0.5 mg PO DAILY HRT 05/12/21 09/30/24 montelukast 10 mg tablet 10 mg PO PM allergies 05/12/21 09/30/24 paroxetine HCl 40 mg tablet 40 mg PO DAILY mood 05/12/21 09/30/24 pantoprazole 40 mg tablet,delayed 40 mg PO DAILY Reflux/Acid reflux 07/07/21 09/30/24 release lidocaine-prilocaine 2.5 %-2.5 % 1 applic topical .COMPLEX Pain 10/14/21 11/05/24 topical cream hydroxyzine HCl 50 mg tablet 50 mg PO TID Pain 11/29/21 09/30/24 buprenorphine 2 mg-naloxone 0.5 mg 1 film sublingual DAILY Pain 01/23/22 09/30/24 sublingual film aspirin 81 mg tablet,delayed 81 mg PO DAILY Blood thinner 03/23/22 09/30/24 release diclofenac sodium 75 mg 75 mg PO DAILY Pain 03/23/22 09/30/24 tablet,delayed release metformin 500 mg tablet 500 mg PO DAILY Diabetes 08/03/22 09/30/24 ondansetron HCl 8 mg tablet 8 mg PO DAILY PRN Stomach Upset 08/03/22 09/30/24 famotidine 40 mg tablet 40 mg PO DAILY STOMACH 08/21/22 09/30/24 pravastatin 40 mg tablet 40 mg PO DAILY Cholesterol 08/21/22 09/30/24 cetirizine 10 mg tablet 10 mg PO DAILY ALLERGIES 11/13/22 09/30/24 albuterol sulfate 90 mcg/actuation 1 puff inhalation DIRECTED PRN 12/05/22 09/30/24 aerosol inhaler (ProAir HFA) BREATHING diltiazem HCl 30 mg tablet 30 mg PO ONCE HEART 12/05/22 09/30/24 amantadine HCl 100 mg tablet 100 mg PO DIRECTED . 10/15/23 09/30/24 fluticasone propionate 50 50 mcg intranasal DIRECTED 10/15/23 09/30/24 mcg/actuation nasal Breathing Problems spray,suspension fluticasone fur. 200 mcg-umeclid 1 inh inhalation DAILY 01/07/24 09/30/24 62.5 mcg-vilant 25 mcg inhalat.powder (Trelegy Ellipta) melatonin 5 mg capsule 5 mg PO HS 06/16/24 09/30/24 semaglutide 2 mg/dose (8 mg/3 mL) 2 mg SQ WEEKLY 06/16/24 09/30/24 subcutaneous pen injector (Ozempic) trazodone 100 mg tablet 200 mg PO HS 06/16/24 09/30/24 Previous Rx's ?Medication ?Instructions ?Recorded urea 40 % topical cream 1 applic topical BID 3 months #60 01/07/24 applic cyclobenzaprine 10 mg tablet 10 mg PO TID PRN muscle spasm #90 02/18/24 tabs pregabalin 300 mg capsule 300 mg PO TID #90 caps 08/11/24 Allergies Allergy/AdvReac Type Severity Reaction Status Date / Time Sulfa (Sulfonamide Allergy Verified 09/30/24 10:35 Antibiotics) [facility] Disclaimer: The information contained in this section may have been updated after the patient was seen, as this information can be updated by other users. 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 current occupational exposures/hazards: No caffeine: Yes Other Medical History Have you received the Flu Vaccine for this season: No Have you received the Pneumonia Vaccine: No ROS Obtained: Yes All systems reviewed & no additional complaints except as documented Physical Exam General General appearance: alert and in no apparent distress Head Head exam: atraumatic and normocephalic Eye Eye exam: Present normal appearance, PERRL and EOMI ENT ENT exam: Present normal exam, normal oropharynx, mucous membranes moist and normal external ear exam Neck Neck exam: Present normal inspection, full ROM and trachea midline; Absent tenderness Chest Chest inspection: Present normal inspection and symmetric chest wall rise; Absent tenderness Respiratory Respiratory exam: Present normal lung sounds bilaterally; Absent respiratory distress, wheezes, stridor or accessory muscle use Cardiovascular Cardiovascular exam: Present regular rate and normal rhythm Abdominal Exam Abdominal exam: Present soft; Absent distention, tenderness or guarding Extremities Exam Extremities exam: Present normal inspection, full ROM and normal capillary refill; Absent tenderness or edema Back Exam Back exam: Present normal inspection and full ROM; Absent tenderness Neurological Exam Neurological exam: Present alert, oriented X3, CN II-XII intact and normal gait; Absent motor sensory deficit Psychiatric Psychiatric exam: Present normal affect and normal mood Skin Skin exam: Present warm and dry Medical Decision Making Medical Records Medical records reviewed: Yes I reviewed the patient's medical records. Screening: Per USPSTF and CDC recommendations, given the prevalence of disease in our region, it is our hospital?s policy to screen for HIV and viral Hepatitis for all patients aged 18 and over and those with ongoing risk factors. Bruno Inquiry Pt receiving controlled substance: No Vital Signs: 09/30/24 11:29 09/30/24 14:11 Temperature 98.5 F 98.4 F Temperature Source Oral Pulse Rate 91 H Pulse Rate [Right] 83 Respiratory Rate 22 18 Blood Pressure 112/61 Blood Pressure [Right Arm] 117/57 L Blood Pressure Mean [Right Arm] 77 02 Sat by Pulse Oximetry 91 L Oxygen Delivery Method Nasal Cannula Lab Data Lab results reviewed: Yes I reviewed the patient's lab results. Lab Results 09/30/24 12:00: WBC 11.7 H, RBC 4.87, Hgb 14.2, Hct 42.8, MCV 88.0, MCH 29.2, MCHC 33.2, RDW 13.9, Plt Count 211, MPV 9.2, Neut % (Auto) 65.8, Lymph % (Auto) 24.5, Perkins % (Auto) 5.8, Eos % (Auto) 2.8, Baso % (Auto) 1.0, Neut # (Auto) 7.7, Lymph # (Auto) 2.9, Perkins # (Auto) 0.7, Eos # (Auto) 0.3, Baso # (Auto) 0.1, Sodium 141, Potassium 3.6, Chloride 100, Carbon Dioxide 38 H, Anion Gap 6.6, BUN 12, Creatinine 0.80, Estimated Creat Clear 95, Estimated GFR 74, Est GFR ( Amer) 90, Glucose 80, Lactate 1.1, Calcium 9.1, Total Bilirubin 0.4, AST 32, ALT 21, Alkaline Phosphatase 109, NT-Pro-B Natriuret Pep 114, Total Protein 7.2, Albumin 4.2, Globulin 3.0, Albumin/Globulin Ratio 1.4, TSH 2.80, Thyroxine (T4) 8.8, Urine Color Yellow, Urine Appearance Clear, Urine pH 7.5, Ur Specific [place] 1.010, Urine Protein Negative, Urine Glucose (UA) Negative, Urine Ketones Negative, Urine Blood Negative, Urine Nitrate Negative, Urine Bilirubin Negative, Urine Urobilinogen 0.2, Ur Leukocyte Esterase Trace, Urine RBC None, Urine WBC Occasional, Ur Squamous Epith Cells 3-5, Urine Bacteria Trace, HIV 1&2 Antibody Rapid Nonreactive 09/30/24 12:06: VBG pH 7.36, VBG pCO2 57.2 H, VBG pO2 40.1 H, VBG HCO3 31.7 H, VBG Total CO2 33.4 H, VBG O2 Saturation 75.9 H, VBG Base Excess 6.2 H, VBG Lactic Acid 1.6 09/30/24 12:40: SARS-CoV-2 (PCR) Not detected, Influenza A Untype (PCR) Not detected, Influenza Type B (PCR) Not detected 09/30/24 12:00 09/30/24 12:00 Orders (Tests/Meds): ORDERS Category Date Time Status Chest XR -- portable [XR chest portable] Stat Exams 09/30/24 12:08 Completed BNP [NT Pro Brain Natriuretic Pep.] Stat Lab 09/30/24 12:00 Completed CBC [Complete Blood Count Auto Diff] Stat Lab 09/30/24 12:00 Completed CMP [Comprehensive Metabolic Panel] Stat Lab 09/30/24 12:00 Completed HIV (1&2) Antibody Rapid Stat Lab 09/30/24 12:00 Completed Hep C Ab with Reflex to RNA Stat Lab 09/30/24 12:00 Received Lactic Acid Stat Lab 09/30/24 12:00 Completed Rapid PCR Covid and Flu A/B Stat Lab 09/30/24 12:40 Completed T4 (Thyroxine) Stat Lab 09/30/24 12:00 Completed TSH [Thyroid Stimulating Hormone] Stat Lab 09/30/24 12:00 Completed Urinalysis and Microscopic Stat Lab 09/30/24 12:00 Completed VBG [Venous Blood Gas] Stat RT 09/30/24 12:06 Completed ECG Data Tracing #1: I reviewed this ECG and interpreted as documented below: Normal sinus rhythm with a ventricular rate of [address] changes concerning for ischemia. Normal axis and intervals ECG initial impression date: 09/30/24 ECG initial impression time: 11:45 Medical Decision Narrative: In summary, this patient is a 54-year-old female presenting to the Emergency Department for evaluation of generally feeling unwell and low blood pressure at outpatient clinic. Differential diagnoses considered include but are not limited to sepsis, pneumonia, CHF, hypothyroidism, dehydration, electrolyte derangements, pain pump issues. Ruling out the most morbid conditions drove assessment. It should be noted patient's history includes COPD, hypertension, hyperlipidemia, diabetes which may or may not be at goal therapy. This complicates all aspects of care by increasing patient's risk for morbidity. I reviewed patient's past medical records and noted outpatient podiatry clinic note from today with low blood pressure noted. On exam, the patient is lying in bed in no acute distress. No increased work of breathing. Cardiopulmonary and abdominal exams are benign. Workup included broad lab evaluation to evaluate for infectious, metabolic, cardiac causes of her feeling unwell as well as chest x-ray and EKG. EKG obtained is reassuring. I independently interpreted chest x-ray prior to the radiologist read and noted no acute focal consolidation concerning for pneumonia. Patient does have a nodule which she is already aware of. Please see their read for final interpretation. Labs were obtained that demonstrated white count is right at the upper limits of normal but otherwise labs are reassuring. Patient was drinking oral fluids here in the emergency department stated that she felt a lot better after this. Her blood pressure is normotensive. It is possible she could have been slightly volume down or dehydrated, but workup otherwise is reassuring. Ultimately, I feel that she is appropriate for discharge home with close follow-up with primary care states she is feeling better and workup is been reassuring. She is given strict return precautions and was discharged after all questions were answered Critical Care Critical Care Time Critical Care Time: No
[2024-09-30 12:39] LABS: Bacteria,Urine Trace /lpf; WBC,Urine Occasional #/hpf (0-3)
[2024-09-30 12:44] LABS: Coronavirus 19, PCR Not Detected (NotDetected); Influenza A, PCR Not Detected (NotDetected); Influenza B, PCR Not Detected (NotDetected)
[2024-09-30 13:07] LABS: NT Pro Brain Natriuretic Pep. 114 pg/mL (0-125)
[2024-09-30 13:14] LABS: T4 (Thyroxine) 8.8 ug/dl (5.53-11.0)
[2024-09-30 13:56] LABS: HIV (1&2) Antibody Rapid NONREACTIVE (NONREACTIVE)
[2024-09-30 14:11] VITALS: BP 112/61; PULSE 91; RESP 18; TEMP 36.9; O2SAT 94
[2024-10-01 09:39] LABS: HCV Ab Non Reactive (Non Reactive)
== END 2024-09-30 14:13 | disposition home or self-care (01) ==
PROVIDERS: Emergency Provider Emergency Medicine
DX: M51.16 Intervertebral disc disorders with radiculopathy, lumbar region (principal); M96.1 Postlaminectomy syndrome, not elsewhere classified; M46.1 Sacroiliitis, not elsewhere classified; F17.210 Nicotine dependence, cigarettes, uncomplicated
CPT/HCPCS: 71045; 80053; 81001; 82803; 83605; 83880; 84436; 84443; 85025; 86803; 87389; 87636; 93005; 95991; 99284

== ENCOUNTER 2024-10-21 09:52 | Day surgery (SDC) | payer MEDICARE, MEDICAID, SELFPAY ==
--- NOTE | 2024-10-21 09:59 | XR_ITS ---
FINAL REPORT CLINICAL HISTORY: stress fracture a few months ago COMPARISON: None FINDINGS: AP, oblique and lateral views of the left foot were obtained. There is no prior exam for comparison. There is no acute fracture or dislocation. There is lateral subluxation of the base of the second metatarsal with respect to the middle cuneiform. A Lisfranc injury is not excluded. Soft tissues are normal. IMPRESSION: Lateral subluxation of the base of the second metatarsal with respect to the middle cuneiform, a Lisfranc lesion is not excluded. Would consider MRI for further evaluation. Reviewed, Interpreted and Dictated by Lesley Serrano MD Transcribed by Gayathri Meyers Authenticated and [facility]
[2024-10-21 11:33] VITALS: BP 164/84; PULSE 76; RESP 16; TEMP 36.4; O2SAT 95; BMI 30.8
[2024-10-21] MEDS: LIDOCAINE 1% 5ML PF VIAL 5 ML (12:04)
[2024-10-21 12:05] VITALS: BP 102/70; PULSE 77; RESP 18; O2SAT 98
[2024-10-21] MEDS: BUPIVACAINE 0.25% 10ML INJ 25 MG IJ (12:05)
[2024-10-21] MEDS: methylPREDNISolone ACETATE 80MG/ML VIAL 80 MG (12:05)
--- NOTE | 2024-10-21 12:08 | P.PCN_ITS ---
Procedure Date: 10/21/24 Time: 11:55 Anesthesiologist:: Per Wagoner CRNA Complications:: None Pre-procedure Diagnosis:: Right sacroiliitis Post-procedure Diagnosis:: Same. Indications for Procedure:: Patient is a pleasant 54-year-old female who comes our clinic today with complaint of right sacroiliitis. She reports low lumbar back pain off the midline to the right. Difficulty transitioning from sitting to standing. Difficulty with ambulation. Difficulty with sitting for any length of time. Patient wears a boot on the left foot and this has thrown her gait off to some degree. Procedure Details:: Procedure: Right sacroliliac joint injection under fluoroscopy Informed consent was obtained and the risk and benefits of the procedure were explained to the patient.~ The patient was taken to the procedure room and noninvasive monitors were placed including noninvasive blood pressure cuff and pulse oximeter.~ The patient was placed prone on the procedure table.~ The~ right hip was cleansed using Betadine as a cleansing solution.~ C-arm fluorosocpy was used to view the right SI joint.~ The skin and subcutaneous tissues were anesthetized using Lidocaine 1.5% and a 25-gauge needle.~ After this, a 22-gauge spinal needle was inserted under fluoroscopic guidance into the inferior aspect of the right SI joint.~ Omnipaque dye was injected and a good spread was seen throughout the joint.~ After this, approximately 5 mL of bupiv acaine 0.25% was incrementally injected into the sacroiliac joint.~ The patient tolerated the procedure well with no complications.~ The patient was observed in the Pain Clinic, then discharged home neurologically intact.~ Plan and Disposition:: Patient was discharged without incident.
[2024-10-21 12:09] VITALS: BP 102/70; PULSE 77; RESP 18; O2SAT 97
[2024-10-21 12:12] VITALS: BP 124/78; PULSE 78; RESP 16; O2SAT 97
== END 2024-10-21 12:12 | disposition home or self-care (01) ==
PROVIDERS: PCP Emergency Medicine; Visit Provider Nurse Anesthetist, Certified Registered
DX: M46.1 Sacroiliitis, not elsewhere classified (principal); S92.335S Nondisplaced fracture of third metatarsal bone, left foot, sequela
CPT/HCPCS: 27096; 73630; G0260; J1010

== ENCOUNTER 2024-10-31 09:45 | Day surgery (SDC) | payer MEDICARE, MEDICAID, SELFPAY ==
[2024-10-31 10:15] VITALS: BP 152/75; PULSE 98; RESP 16; TEMP 36.3; O2SAT 95; BMI 30.9
[2024-10-31 10:20] VITALS: BP 151/81; PULSE 92; RESP 20; O2SAT 94
[2024-10-31 10:35] VITALS: BP 151/81; PULSE 92; RESP 20; O2SAT 94
--- NOTE | 2024-10-31 10:35 | EXP.PAIN.PRO ---
Procedure Date: 10/31/24 Time: 10:35 Anesthesiologist:: Ines Christianson APRN Complications:: None Pre-procedure Diagnosis:: Degenerative disc disease of lumbar spine with lumbar radiculopathy symptoms Post-procedure Diagnosis:: Same Indications for Procedure:: Patient is a pleasant 54-year-old female who presents today for intrathecal refill and reprogram. Today she rates her pain a 8 out of 10. She denies any new trauma or injury. She does state that she still has her chronic low back pain but that she has been experiencing more depression. Patient does state that her boyfriend and her had broken up about 5 months ago and he does still come and visit their pets which does make things hard and with the change of seasons as well. Patient is currently managed with bupivacaine 10 mg/mL with a daily dose of 4.878 mg/day. She denies any side effects from this medication however feels like it could be increased. Her Bruno has been reviewed and is appropriate. Physical Exam: General: Alert and oriented x3, no acute distress, pleasant and cooperative Lungs: Respirations even and unlabored, symmetrical chest expansion Eyes: PERRL Musculoskeletal: Flexion and extension of lumbar [spine] somewhat guarded secondary to pain, [antalgic gait noted] Neurological: Speech clear, no gross sensory deficit Procedure Details:: Informed consent was obtained and the risk and benefits of the procedure were explained to the patient. The patient had noninvasive monitoring placed including noninvasive blood pressure cuff and pulse oximeter. Patient's pump was interrogated. The area over the pump was cleansed with chlorhexidine as a cleansing solution. In sterile fashion the pump was accessed with a 22-gauge needle. Approximately 5 mls of the pump solution was removed and discarded appropriately. The pump was then refilled with 20 mL's of bupivacaine 10 mg/mL. The needle was withdrawn and a bandage was placed over the puncture site. The infusion rate was reprogrammed and bupivacaine 5.612 mg/day. The patient tolerated well with no complication. Plan and Disposition:: Patient tolerated her intrathecal refill and reprogram with no complications and was discharged neurologically intact. Patient will return to clinic on or before her next intrathecal refill date of November 30, 2024. We will see the patient back in the clinic at the next intrathecal refill. Patient has been instructed to contact the clinic with any concerns before the next appointment. Dr. Sethi has reviewed this note and agrees with this plan of care. This note was dictated using voice recognition software and make contain errors or omissions. -- It Is medically necessary for this patient to continue to have their intrathecal pump refilled at regular intervals. This patient had an intrathecal pain pump implanted after meeting criteria of chronic intractable pain for greater than 3 months and failing conservative treatments. Patient has committed and been compliant to the treatment plan and all planned follow up care. Since implantation of the intrathecal pain pump, the patient has had decreased pain and been more functional. Oral medications have been reduced including intake of oral opioids. Patient continues to do well with intrathecal therapy with decrease in pain symptoms and increase in functional status. Stopping intrathecal medications can lead to life threatening withdrawal, seizures, cardiac arrest, severe pain, and possible . Pumps that are not refilled at regular intervals can be damages and cause and need for replacement. We continually titrate dose and concentration to optimize pain relief and function. We are limited in concentration for certain drugs to safely deliver medications through the pump and stay within the recommendations from the Polyanalgesic Consensus Committee Guidelines. Depending on dose and concentration these pumps may need to be refilled sooner than 3 months as we titrate.
[2024-10-31 10:41] VITALS: BP 147/92; PULSE 89; RESP 16; O2SAT 90
== END 2024-10-31 10:41 | disposition home or self-care (01) ==
PROVIDERS: PCP Emergency Medicine; Visit Provider Nurse Practitioner Family
DX: M51.16 Intervertebral disc disorders with radiculopathy, lumbar region (principal)
CPT/HCPCS: 62370

== ENCOUNTER 2024-11-12 09:43 | Outpatient (POV) | payer MEDICARE, MEDICAID, SELFPAY ==
[2024-11-12 10:02] VITALS: BP 123/81; PULSE 88; O2SAT 94; BMI 30.9
--- NOTE | 2024-11-12 10:39 | P.PCN_ITS ---
Procedure Date: 11/12/24 Time: 10:26 Anesthesiologist:: Ines Christianson APRN Complications:: None Pre-procedure Diagnosis:: Degenerative disc disease of lumbar spine with lumbar radiculopathy symptoms Post-procedure Diagnosis:: Same Indications for Procedure:: Patient is a pleasant 54-year-old female who presents today for intrathecal adjustment and reprogram. Today she rates her pain a 5 out of 10. Patient does state that the increase from her last visit did help however often times as soon as she starts to do increased activity she does have worsening pain and does not feel like the pump is working as well as what it did originally. Patient is currently managed with bupivacaine 10 mg/mL with a daily dose of 5.612 mg/day. She denies any side effects from this medication. Patient is prescribed 300 mg pregabalin 3 times daily, diclofenac 75 mg and Flexeril 10 mg 3 times daily. Patient is also managed with Physical Exam: General: Alert and oriented x3, no acute distress, pleasant and cooperative Lungs: Respirations even and unlabored, symmetrical chest expansion Eyes: PERRL Musculoskeletal: Flexion and extension of lumbar [spine] somewhat guarded secondary to pain, [antalgic gait noted] Neurological: Speech clear, no gross sensory deficit Procedure Details:: Informed consent was obtained and the risk and benefits of the procedure were explained to the patient. Patient did have noninvasive monitoring was placed including noninvasive blood pressure cuff and pulse oximeter. Patient's pump was interrogated and was reprogrammed to bupivacaine 6.445 mg/day. The patient tolerated the procedure well with no complications. Plan and Disposition:: I did discuss with the patient that I do believe there is a possibility that she may do better with adding possible baclofen to her pump. I will send in a 2- week dose of baclofen 10 mg 3 times daily as needed to see how she tolerates the oral before proceeding forward to add it to her pump. Patient will return to clinic in 2 weeks for reevaluation of symptoms and plan of care. Patient tolerated her intrathecal increase with no complications and was discharged neurologically intact. I will also make sure she has refills on her pregabalin. Patient will discontinue the Flexeril at this time while she tries the baclofen. We will see the patient back in the clinic at the next intrathecal refill. Patient has been instructed to contact the clinic with any concerns before the next appointment. Dr. Sethi has reviewed this note and agrees with this plan of care. This note was dictated using voice recognition software and make contain errors or omissions. -- It Is medically necessary for this patient to continue to have their intrathecal pump refilled at regular intervals. This patient had an intrathecal pain pump implanted after meeting criteria of chronic intractable pain for greater than 3 months and failing conservative treatments. Patient has committed and been compliant to the treatment plan and all planned follow up care. Since implantation of the intrathecal pain pump, the patient has had decreased pain and been more functional. Oral medications have been reduced including intake of oral opioids. Patient continues to do well with intrathecal therapy with decrease in pain symptoms and increase in functional status. Stopping intrathecal medications can lead to life threatening withdrawal, seizures, cardiac arrest, severe pain, and possible . Pumps that are not refilled at regular intervals can be damages and cause and need for replacement. We continually titrate dose and concentration to optimize pain relief and function. We are limited in concentration for certain drugs to safely deliver medications through the pump and stay within the recommendations from the [employer] Guidelines. Depending on dose and concentration these pumps may need to be refilled sooner than 3 months as we titrate. A UDS is needed to verify patient's compliance with our office pain contract. This is ordered based off specific treatments related to chronic pain with the potential to abuse certain medications.
== END 2024-11-12 23:59 | disposition home or self-care (01) ==
PROVIDERS: PCP Emergency Medicine; Visit Provider Nurse Practitioner Family
DX: M51.16 Intervertebral disc disorders with radiculopathy, lumbar region (principal)
CPT/HCPCS: 62368; 99212; 99213; G0463

== ENCOUNTER 2024-11-28 10:43 | Day surgery (SDC) | payer MEDICARE, MEDICAID, SELFPAY ==
--- NOTE | 2024-11-28 11:21 | P.PCN_ITS ---
Procedure Date: 11/28/24 Time: 11:49 Anesthesiologist:: Ines Christianson APRN Complications:: None Pre-procedure Diagnosis:: Degenerative disc disease of lumbar spine with lumbar radiculopathy symptoms, left sacroiliitis Post-procedure Diagnosis:: Same Indications for Procedure:: Patient is a pleasant 54-year-old female who presents today for intrathecal refill and reprogram. Today she rates her pain a 10 Out of 10. She denies any new trauma or injury. She does state that her SI joint is really bothering her along the left side. She states that the pain is severe and constant and describes it as a burning aching sensation that goes into her buttocks and upper thigh. Patient states that from her last injection along the right side it still doing wonderful and not causing any additional issues. She is interested in getting an injection for the left SI joint. She is currently managed with bupivacaine 10 mg/mL with a daily dose of 6.445 mg/day she denies any side effects from this medication. She is requesting an increase. Patient is also managed with pregabalin 300 mg 3 times a day, diclofenac 75 mg and was recently called in baclofen 10 mg 3 times a day however she states that she never was able to get this that the insurance said something about a prior authorizatio n.Her Bruno has been reviewed and is appropriate. Physical Exam: General: Alert and oriented x3, no acute distress, pleasant and cooperative Lungs: Respirations even and unlabored, symmetrical chest expansion Eyes: PERRL Musculoskeletal: Flexion and extension of lumbar [spine] somewhat guarded secondary to pain, [antalgic gait noted] point tenderness along left SI with positive left Vel's, Gucci's, Gaenslen's, compression and distraction exam Neurological: Speech clear, no gross sensory deficit Procedure Details:: Informed consent was obtained and the risk and benefits of the procedure were explained to the patient. The patient had noninvasive monitoring placed including noninvasive blood pressure cuff and pulse oximeter. Patient's pump was interrogated. The area over the pump was cleansed with chlorhexidine as a cleansing solution. In sterile fashion the pump was accessed with a 22-gauge needle. Approximately 3.9 mls of the pump solution was removed and discarded appropriately. The pump was then refilled with 20 mL's of bupivacaine 10 mg/mL. The needle was withdrawn and a bandage was placed over the puncture site. The infusion rate was reprogrammed and increased to 10%. The patient tolerated well with no complication. Plan and Disposition:: Patient tolerated her intrathecal refill and reprogram with no complications and was discharged neurologically intact. Patient is experiencing worsening pain in her left SI with limited range of motion of her lumbar spine and point tenderness along the left SI. Patient did have a positive Vel's, Gucci's, Gaenslen's, compression and distraction exam. Patient has a longstanding history of ongoing sacroiliitis that has been going on for longer than 1 year. Patient's last injection was on the right side in September that did give more than 80% relief and is still helping. I did go over the risk and benefits of injection along the left side and she would like to proceed forward with this plan of care. I will also make sure that she is good on her refills of her pregabalin, diclofenac and look into doing a prior authorization for the baclofen. I will also send in a 5-day dose of steroids 20 mg twice daily. Patient will be scheduled for a left SI injection under fluoroscopy. Patient will return to clinic on or before her next intrathecal refill date. We will see the patient back in the clinic at the next intrathecal refill. Patient has been instructed to contact the clinic with any concerns before the next appointment. Dr. Sethi has reviewed this note and agrees with this plan of care. This note was dictated using voice recognition software and make contain errors or omissions. -- It Is medically necessary for this patient to continue to have their intrathecal pump refilled at regular intervals. This patient had an intrathecal pain pump implanted after meeting criteria of chronic intractable pain for greater than 3 months and failing conservative treatments. Patient has committed and been compliant to the treatment plan and all planned follow up care. Since implantation of the intrathecal pain pump, the patient has had decreased pain and been more functional. Oral medications have been reduced including intake of oral opioids. Patient continues to do well with intrathecal therapy with decrease in pain symptoms and increase in functional status. Stopping intrathecal medications can lead to life threatening withdrawal, seizures, cardiac arrest, severe pain, and possible . Pumps that are not refilled at regular intervals can be damages and cause and need for replacement. We continually titrate dose and concentration to optimize pain relief and function. We are limited in concentration for certain drugs to safely deliver medications through the pump and stay within the recommendations from the Polyanalges[employer] Consensus Committee Guidelines. Depending on dose and concentration these pumps may need to be refilled sooner than 3 months as we titrate. A UDS is needed to verify patient's compliance with our office pain contract. This is ordered based off specific treatments related to chronic pain with the potential to abuse certain medications.
[2024-11-28 11:33] VITALS: BP 134/68; PULSE 58; RESP 16; TEMP 37; O2SAT 92; BMI 30.9
[2024-11-28 11:40] VITALS: BP 103/79; PULSE 96; RESP 18; O2SAT 95
[2024-11-28 11:41] VITALS: BP 103/79; PULSE 95; RESP 18; O2SAT 96
[2024-11-28 12:09] VITALS: BP 114/63; PULSE 97; RESP 16; O2SAT 93
== END 2024-11-28 12:09 | disposition home or self-care (01) ==
PROVIDERS: PCP Emergency Medicine; Visit Provider Nurse Practitioner Family
DX: M51.16 Intervertebral disc disorders with radiculopathy, lumbar region (principal); M46.1 Sacroiliitis, not elsewhere classified
CPT/HCPCS: 62370; 99212; G0463

== ENCOUNTER 2024-12-26 09:32 | Day surgery (SDC) | payer MEDICARE, MEDICAID, SELFPAY ==
--- NOTE | 2024-12-26 09:46 | P.PCN_ITS ---
Procedure Date: 12/26/24 Time: 10:00 Anesthesiologist:: Ines Christianson APRN Complications:: None Pre-procedure Diagnosis:: Degenerative disc disease of lumbar spine with lumbar radiculopathy symptoms Post-procedure Diagnosis:: Same Indications for Procedure:: Patient is a pleasant 54-year-old female who presents today for intrathecal refill and reprogram. Today she rates her pain a 10 out of 10. Patient states that a lot is going on from our last visit. She states that she was hospita lized on 3 different occasions with multiple issues. Patient states that she had rhinovirus, pneumonia and even kidney function. Patient states that she did also have some psychological issues and that they had wanted her to go to rehab. Patient states that she just had a lot of increased pain with all this going on. Patient is currently managed with bupivacaine 10 mg/mL with a daily dose of She denies any side effects from this medication however is asking if we can go up on it. Patient does present today with her mother present for this appointment. Her mother does state that she is still having a lot of confusion and memory issues. She states that one of the things they discontinued was her Seroquel and that they felt like it was too high of a dosage and altered her kidney function due to that. She is scheduled for a follow-up appointment with her PCP on Sunday. Her mother does state that there is just a lot of physicians making changes to her medication and that they ended up going home because they were stating it would take another couple days to set up and get approval to go to a rehab facility. Her mother does have a lot of concern that she still needs this type of intervention.Her Bruno has been reviewed and is appropriate. Physical Exam: General: Alert and oriented x3, no acute distress, pleasant and cooperative Lungs: Respirations even and unlabored, symmetrical chest expansion Eyes: PERRL Musculoskeletal: Flexion and extension of lumbar [spine] somewhat guarded secondary to pain, [antalgic gait noted] Neurological: Speech clear, no gross sensory deficit Procedure Details:: Informed consent was obtained and the risk and benefits of the procedure were explained to the patient. The patient had noninvasive monitoring placed including noninvasive blood pressure cuff and pulse oximeter. Patient's pump was interrogated. The area over the pump was cleansed with chlorhexidine as a cleansing solution. In sterile fashion the pump was accessed with a 22-gauge needle. Approximately 0.4 mls of the pump solution was removed and discarded appropriately. The pump was then refilled with 20 mL's of 15 mg bupivacaine. The needle was withdrawn and a bandage was placed over the puncture site. The infusion rate was reprogrammed and increased 10%. The patient tolerated well with no complication. Plan and Disposition:: Patient tolerated the procedure well with no complications and was discharged neurologically intact. I did discuss with the patient that we had had her scheduled for a left SI injection but this was canceled due to one of her hospitalizations. Patient does states she is still having severe pain in this area and would like to proceed forward with this injection. We will add this on to next Sunday. Patient agrees with this plan of care. I did have a long discussion with both her and her mother regarding that I do suggest they still continue to make the follow-up appointment with her primary care on Sunday and that they can discuss with them regarding rehab options. Patient acknowledges understanding agrees with plan of care. Patient was counseled due to the concentration change that she will not be able to use her PTM device during that time. She acknowledges understanding. We did change her PTM's to a very low starting dose of 0.015 mg due to the increased confusion and memory issues. We will follow-up with this at her next appointment. Patient will return to clinic on or before their next intrathecal refill date. We will see the patient back in the clinic at the next intrathecal refill. Patient has been instructed to contact the clinic with any concerns before the next appointment. Dr. Sethi has reviewed this note and agrees with this plan of care. This note was dictated using voice recognition software and make contain errors or omissions. -- It Is medically necessary for this patient to continue to have their intrathecal pump refilled at regular intervals. This patient had an intrathecal pain pump implanted after meeting criteria of chronic intractable pain for greater than 3 months and failing conservative treatments. Patient has committed and been compliant to the treatment plan and all planned follow up care. Since implantation of the intrathecal pain pump, the patient has had decreased pain and been more functional. Oral medications have been reduced including intake of oral opioids. Patient continues to do well with intrathecal therapy with decrease in pain symptoms and increase in functional status. Stopping intrathecal medications can lead to life threatening withdrawal, seizures, cardiac arrest, severe pain, and possible . Pumps that are not refilled at regular intervals can be damages and cause and need for replacement. We continually titrate dose and concentration to optimize pain relief and function. We are limited in concentration for certain drugs to safely deliver medications through the pump and stay within the recommendations from the Polyanalgesic Consensus Committee Guidelines. Depending on dose and concentration these pumps may need to be refilled sooner than 3 months as we titrate. A UDS is needed to verify patient's compliance with our office pain contract. This is ordered based off specific treatments related to chronic pain with the potential to abuse certain medications.
[2024-12-26 09:56] VITALS: BP 155/98; PULSE 81; RESP 16; TEMP 36.9; O2SAT 100; BMI 26.4
[2024-12-26 09:58] VITALS: BP 180/90; PULSE 82; RESP 20; O2SAT 99
[2024-12-26 10:00] VITALS: BP 180/90; PULSE 79; RESP 20; O2SAT 99
[2024-12-26 10:26] VITALS: BP 143/87; PULSE 84; RESP 16; O2SAT 96
== END 2024-12-26 10:26 | disposition home or self-care (01) ==
PROVIDERS: PCP Emergency Medicine; Visit Provider Nurse Practitioner Family
DX: M51.16 Intervertebral disc disorders with radiculopathy, lumbar region (principal)
CPT/HCPCS: 62370

== ENCOUNTER 2024-12-30 13:51 | Day surgery (SDC) | payer MEDICARE, MEDICAID, SELFPAY ==
[2024-12-30 14:19] VITALS: BP 120/87; PULSE 80; RESP 16; TEMP 36.6; O2SAT 95; BMI 28.7
[2024-12-30] MEDS: BUPIVACAINE 0.25% 10ML INJ 25 MG IJ (14:28)
[2024-12-30] MEDS: LIDOCAINE 1% 5ML PF VIAL 5 ML (14:28)
[2024-12-30 14:29] VITALS: BP 117/78; PULSE 84; RESP 18; O2SAT 95
[2024-12-30 14:30] VITALS: BP 117/78; PULSE 84; RESP 18; O2SAT 95
[2024-12-30 14:44] VITALS: BP 132/73; PULSE 76; RESP 16; O2SAT 100
--- NOTE | 2024-12-30 14:44 | EXP.PAIN.PRO ---
Procedure Date: 12/30/24 Time: 14:30 Anesthesiologist:: Per Wagoner CRNA Complications:: None Pre-procedure Diagnosis:: Left sacroiliitis Post-procedure Diagnosis:: Same Indications for Procedure:: Patient is a pleasant 54-year-old female comes to clinic today for left sacroiliac joint injection of cortisone and local anesthetic. Patient describes low lumbar back pain off the midline to the left. Difficulty transitioning from sitting to standing. Left posterior hip pain. Procedure Details:: Procedure: Left sacroiliac injection under fluoroscopy Informed consent was obtained and the risk and benefits of the procedure were explained to the patient.~ The patient was taken to the procedure room and noninvasive monitors were placed including noninvasive blood pressure cuff and pulse oximeter.~ The patient was placed prone on the procedure table.~ The~ left hip was cleansed using Betadine as a cleansing solution.~ C-arm fluorosocpy was used to view the left SI joint.~ The skin and subcutaneous tissues were anesthetized using Lidocaine 1.5% and a 25-gauge needle.~ After this, a 22-gauge spinal needle was inserted under fluoroscopic guidance into the inferior aspect of the left SI joint.~ Omnipaque dye was injected and a good spread was seen throughout the joint.~ After this, approximately 5 mL of bupivacaine 0.25% and Depo-Medrol 40 mg was incrementally injected into the sacroiliac joint.~ The patient tolerated the procedure well with no complications.~ The patient was observed in the Pain Clinic for a period of 30-45 minutes, then discharged home neurologically intact.~ Plan and Disposition:: Patient was discharged without incident.
== END 2024-12-30 14:44 | disposition home or self-care (01) ==
PROVIDERS: PCP Emergency Medicine; Visit Provider Nurse Anesthetist, Certified Registered
DX: M46.1 Sacroiliitis, not elsewhere classified (principal)
CPT/HCPCS: 27096; G0260; J1010

== ENCOUNTER 2025-01-23 11:29 | Day surgery (SDC) | payer MEDICARE, MEDICAID, SELFPAY ==
--- NOTE | 2025-01-23 11:42 | P.PCN_ITS ---
Procedure Date: 01/23/25 Time: 12:17 Anesthesiologist:: Ines Christianson APRN Complications:: None Pre-procedure Diagnosis:: Degenerative disc disease of lumbar spine with lumbar radiculopathy symptoms Post-procedure Diagnosis:: Same Indications for Procedure:: And was most recently toldPatient is a pleasant 55-year-old female who presents today for intrathecal refill and reprogram. She rates her pain today a 8 out of 10. She denies any new trauma or injury however she is still having quite a bit of pain with her left hip. She states that it is constant and interferes with her ability perform activities of daily living such as cooking and cleaning. Patient states that nothing seems to help. Patient is currently managed with intrathecal bupivacaine 15 mg/mL with a daily dose of 7.8 mg/day. She denies any side effects from this medication. She does state that the lidocaine pat ches we sent just do not want to stick and is asking if we could possibly do a muscle relaxer. Patient is currently prescribed pregabalin 150 mg and was told to only take this once per day due to altered kidney function. Patient does state that she had forgotten and has been taking it 3 times per day. Her Bruno has been reviewed and is appropriate. Physical Exam: General: Alert and oriented x3, no acute distress, pleasant and cooperative Lungs: Respirations even and unlabored, symmetrical chest expansion Eyes: PERRL Musculoskeletal: Flexion and extension of left hip somewhat guarded secondary to pain, [antalgic gait noted] Neurological: Speech clear, no gross sensory deficit Procedure Details:: Informed consent was obtained and the risk and benefits of the procedure were explained to the patient. The patient had noninvasive monitoring placed including noninvasive blood pressure cuff and pulse oximeter. Patient's pump was interrogated. The area over the pump was cleansed with chlorhexidine as a cleansing solution. In sterile fashion the pump was accessed with a 22-gauge needle. Approximately 6 mls of the pump solution was removed and discarded appropriately. The pump was then refilled with 20 mL's of bupivacaine 15 mg per. The needle was withdrawn and a bandage was placed over the puncture site. The infusion rate was reprogrammed and continued at its current dosage. The patient tolerated well with no complication. Plan and Disposition:: Patient tolerated the procedure well with no complications and was discharged neurologically intact. I did discuss with patient due to the worsening left hip pain that I would like to order some imaging including x-ray and MRI to follow without contrast. Patient agrees with this plan of care. We will plan on following up after her MRI imaging and most likely will refer her to an orthopedic surgeon at a later date. Patient agrees with this plan of care. I did talk to both the patient and her mother who presented today with her regarding making sure that she is only taking the pregabalin once a day due to the altered kidney function. They both acknowledged understanding and agree with this plan of care. I will send in additional refills on her previous muscle relaxer. Patient will return to clinic on or before their next intrathecal refill date. We will see the patient back in the clinic at the next intrathecal refill. Patient has been instructed to contact the clinic with any concerns before the next appointment. Dr. Sethi has reviewed this note and agrees with this plan of care. This note was dictated using voice recognition software and make contain errors or omissions. -- It Is medically necessary for this patient to continue to have their intrathecal pump refilled at regular intervals. This patient had an intrathecal pain pump implanted after meeting criteria of chronic intractable pain for greater than 3 months and failing conservative treatments. Patient has committed and been compliant to the treatment plan and all planned follow up care. Since implantation of the intrathecal pain pump, the patient has had decreased pain and been more functional. Oral medications have been reduced including intake of oral opioids. Patient continues to do well with intrathecal therapy with decrea se in pain symptoms and increase in functional status. Stopping intrathecal medications can lead to life threatening withdrawal, seizures, cardiac arrest, severe pain, and possible . Pumps that are not refilled at regular intervals can be damages and cause and need for replacement. We continually titrate dose and concentration to optimize pain relief and function. We are limited in concentration for certain drugs to safely deliver medications through the pump and stay within the recommendations from the Polyanalgesic Consensus Committee Guidelines. Depending on dose and concentration these pumps may need to be refilled sooner than 3 months as we titrate. A UDS is needed to verify patient's compliance with our office pain contract. This is ordered based off specific treatments related to chronic pain with the potential to abuse certain medications.
[2025-01-23 11:53] VITALS: BP 124/73; PULSE 71; RESP 16; TEMP 36.8; O2SAT 96; BMI 30.2
[2025-01-23 12:10] VITALS: BP 145/85; PULSE 75; RESP 18; O2SAT 94
[2025-01-23 12:11] VITALS: BP 145/85; PULSE 75; RESP 18; O2SAT 94
[2025-01-23 12:18] VITALS: BP 153/95; PULSE 68; RESP 16; O2SAT 94
--- NOTE | 2025-01-23 13:01 | XR_ITS ---
FINAL REPORT CLINICAL HISTORY: left hip pain COMPARISON: None FINDINGS: LEFT HIP Two views of the left hip and an AP pelvis view were obtained. There is no acute fracture or dislocation. The joint spaces are well-preserved. The visualized bony structures are well aligned. There is no acute soft tissue abnormality. IMPRESSION: No acute abnormality identified. Reviewed, Interpreted and Dictated by Sylvie Glover MD Transcribed by Shayna Lundy Authenticated and [facility]
== END 2025-01-23 12:15 | disposition home or self-care (01) ==
PROVIDERS: PCP Emergency Medicine; Visit Provider Nurse Practitioner Family
DX: M25.552 Pain in left hip (principal); G89.29 Other chronic pain; M51.16 Intervertebral disc disorders with radiculopathy, lumbar region; Z73.89 Other problems related to life management difficulty
CPT/HCPCS: 62370; 73502; 99212; G0463

== ENCOUNTER 2025-02-12 10:06 | Outpatient (CLI) | payer MEDICARE, MEDICAID, SELFPAY ==
--- NOTE | 2025-02-12 10:12 | XR_ITS ---
FINAL REPORT CLINICAL HISTORY: Foot Pain COMPARISON: 10/21/2024 FINDINGS: Three views show no evidence of acute displaced fracture or dislocation of the visualized bony architecture. There is a small chronic fracture along the dorsal medial medial cuneiform. There is questionable separation between the medial cuneiform and second metatarsal base which can be seen with Lisfranc injury, similar to prior. There is generalized osteopenia. IMPRESSION: Stable chronic changes. Reviewed, Interpreted and Dictated by Sylvie Glover MD Transcribed by Milagros Harper Authenticated and [facility]
== END 2025-02-12 23:59 | disposition home or self-care (01) ==
LOC: RAD 10:07
PROVIDERS: PCP Internal Medicine Adolescent Medicine; Visit Provider Podiatrist
DX: M79.672 Pain in left foot (principal); M84.375S Stress fracture, left foot, sequela
CPT/HCPCS: 73630

== ENCOUNTER 2025-02-20 10:54 | Day surgery (SDC) | payer MEDICARE, MEDICAID, SELFPAY ==
[2025-02-20 11:23] VITALS: BP 126/76; PULSE 69; RESP 18; TEMP 36.8; O2SAT 94; BMI 30.2
--- NOTE | 2025-02-20 11:38 | P.PCN_ITS ---
Procedure Date: 02/20/25 Time: 11:50 Anesthesiologist:: Ines Christianson APRN Complications:: None Pre-procedure Diagnosis:: Degenerative disc disease of lumbar spine with lumbar radiculopathy symptoms Post-procedure Diagnosis:: Same Indications for Procedure:: Patient is a pleasant 55-year-old female who presents today for intrathecal refill and reprogram. Today she rates her pain a 8 out of 10. Patient denies any new injuries or falls. She does state that she just does not feel like her pump is working like what it had. Patient is currently managed with bupivacaine 15 mg/mL with a daily dose of 7.8 mg/day. Patient is also prescribed pregabalin 150 mg daily whereas before she was 3 times a day however had recent altered kidney function. Her Bruno has been reviewed and is appropriate. Physical Exam: General: Alert and oriented x3, no acute distress, pleasant and cooperative Lungs: Respirations even and unlabored, symmetrical chest expansion Eyes: PERRL Musculoskeletal: Flexion and extension of lumbar [spine] somewhat guarded secondary to pain, [antalgic gait noted] Neurological: Speech clear, no gross sensory deficit Procedure Details:: Informed consent was obtained and the risk and benefits of the procedure were explained to the patient. The patient had noninvasive monitoring placed including noninvasive blood pressure cuff and pulse oximeter. Patient's pump was interrogated. The area over the pump was cleansed with chlorhexidine as a cleansing solution. In sterile fashion the pump was accessed with a 22-gauge needle. Approximately 5.7 mls of the pump solution was removed and discarded appropriately. The pump was then refilled with 20 mL's of bupivacaine 15 mg/mL. The needle was withdrawn and a bandage was placed over the puncture site. The infusion rate was reprogrammed and continued at its current dosage. The patient tolerated well with no complication. Plan and Disposition:: Patient tolerated the procedure well with no complications and was discharged neurologically intact. I did discuss with the patient due to the fact she feels like her medication just is not working as well as it initially was that we can add baclofen to the pump. Patient has been started on oral baclofen and did state it does help. We will plan on making changes for her next intrathecal refill to add baclofen. I did also discuss with the patient due to her altered kidney function I would like to see updated labs before she changes her medication dosage of the pregabalin 150 mg. Patient was previously 3 times a day however when she was hospitalized in had the altered kidney function we did make it once a day. I did discuss with the patient that if her primary care is unable to afford her updated labs that to call her office and let us know and I will send in lab orders. Patient agrees with this plan of care. Patient states her pain is just so bad that 1 a day just does not cut it. Patient does also state that she is still seeing the psychiatrist for her depression. She states that they are seeing about different medicines. Patient will return to clinic on or before their next intrathecal refill date. We will see the patient back in the clinic at the next intrathecal refill. Patient has been instructed to contact the clinic with any concerns before the next appointment. Dr. Sethi has reviewed this note and agrees with this plan of c are. This note was dictated using voice recognition software and make contain errors or omissions. -- It Is medically necessary for this patient to continue to have their intrathecal pump refilled at regular intervals. This patient had an intrathecal pain pump implanted after meeting criteria of chronic intractable pain for greater than 3 months and failing conservative treatments. Patient has committed and been compliant to the treatment plan and all planned follow up care. Since implantation of the intrathecal pain pump, the patient has had decreased pain and been more functional. Oral medications have been reduced including intake of oral opioids. Patient continues to do well with intrathecal therapy with decrease in pain symptoms and increase in functional status. Stopping intrathec al medications can lead to life threatening withdrawal, seizures, cardiac arrest, severe pain, and possible . Pumps that are not refilled at regular intervals can be damages and cause and need for replacement. We continually titrate dose and concentration to optimize pain relief and function. We are limited in concentration for certain drugs to safely deliver medications through the pump and stay within the recommendations from the Polyanalgesic Consensus Committee Guidelines. Depending on dose and concentration these pumps may need to be refilled sooner than 3 months as we titrate. A UDS is needed to verify patient's compliance with our office pain contract. This is ordered based off specific treatments related to chronic pain with the potential to abuse certain medications.
[2025-02-20 12:02] VITALS: BP 135/72; PULSE 74; RESP 18; O2SAT 97
[2025-02-20 12:04] VITALS: BP 135/72; PULSE 74; RESP 18; O2SAT 97
[2025-02-20 12:05] VITALS: BP 133/76; PULSE 76; RESP 18; O2SAT 95
== END 2025-02-20 12:06 | disposition home or self-care (01) ==
PROVIDERS: PCP Emergency Medicine; Visit Provider Nurse Practitioner Family
DX: M51.16 Intervertebral disc disorders with radiculopathy, lumbar region (principal)
CPT/HCPCS: 62370

== ENCOUNTER 2025-03-20 13:31 | Day surgery (SDC) | payer MEDICARE, MEDICAID, SELFPAY ==
--- NOTE | 2025-03-20 13:45 | P.HP_ITS ---
History of Present Illness *Admission Date: 03/20/25 *Reason for visit:: Intrathecal refill; DDD *History of present illness: Degenerative disc disease [facility] Disclaimer: The information contained in this section may have been updated after the patient was seen, as this information can be updated by other users. 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 current occupational exposures/hazards: No caffeine: Yes Have you lived/traveled outside [place] in past 30 days?: No Contact w/someone who lives/traveled outside [place] past 30 days?: No Exposure to someone with infectious disease in past 14 days?: No Do you have a fever (greater than 100.4 F or 38 C)?: No Have you tested positive for COVID-19: No Exposed to someone with COVID-19 in past 14 days?: No Do you have a sore throat?: No Do you have a cough?: No Do you have any weakness?: No Do you have any diarrhea?: No Are you experiencing any unusual bleeding?: No Do you have any muscle aches/pain?: No Do you have any abdominal pain?: No Are you experiencing loss of taste or smell?: No Other Medical History Have you received the Flu Vaccine for this season: No Have you received the Pneumonia Vaccine: No Review of Systems Review of Systems Review of systems:: pertinent systems reviewed and negative unless documented below Review of systems (narrative): Review of Systems: General: No recent weight changes, no fever, no sleep disturbances Respiratory: No cough, no shortness of air, no recurring pulmonary infections Cardiovascular/peripheral vascular: No chest pain, no palpitations, no edema, no shortness of breath Gastrointestinal: No new onset incontinence, normal bowel movements reported Genitourinary: No new onset incontinence Musculoskeletal: Chronic back pain Psychiatric: [Normal mood/affect] Neurological: [Denies weakness in extremities], [denies balance issues] Constitutional Constitutional: Reports system reviewed and no additional complaints, except as documented Meds Home Medications and Allergies Home Medications ?Medication ?Instructions ?Recorded ?Confirmed ?Type buspirone 10 mg tablet 10 mg PO BID mood 05/12/21 02/20/25 History estradiol 0.5 mg tablet 0.5 mg PO DAILY HRT 05/12/21 02/20/25 History montelukast 10 mg tablet 10 mg PO PM allergies 05/12/21 02/20/25 History paroxetine HCl 40 mg tablet 40 mg PO DAILY mood 05/12/21 02/20/25 History pantoprazole 40 mg tablet,delayed 40 mg PO DAILY Reflux/Acid reflux 07/07/21 02/20/25 History release lidocaine-prilocaine 2.5 %-2.5 % 1 applic topical .COMPLEX Pain 09/08/21 02/20/25 History topical cream hydroxyzine HCl 50 mg tablet 50 mg PO TID Pain 11/29/21 02/20/25 History buprenorphine 2 mg-naloxone 0.5 mg 1 film sublingual DAILY Pain 01/23/22 02/20/25 History sublingual film aspirin 81 mg tablet,delayed 81 mg PO DAILY Blood thinner 03/23/22 02/20/25 History release metformin 500 mg tablet 500 mg PO DAILY Diabetes 08/03/22 02/20/25 History ondansetron HCl 8 mg tablet 8 mg PO DAILY PRN Stomach Upset 08/03/22 02/20/25 History famotidine 40 mg tablet 40 mg PO DAILY STOMACH 08/21/22 02/20/25 History pravastatin 40 mg tablet 40 mg PO DAILY Cholesterol 08/21/22 02/20/25 History cetirizine 10 mg tablet 10 mg PO DAILY ALLERGIES 11/13/22 02/20/25 History albuterol sulfate 90 mcg/actuation 1 puff inhalation DIRECTED PRN 12/05/22 02/20/25 History aerosol inhaler (ProAir HFA) BREATHING diltiazem HCl 30 mg tablet 30 mg PO ONCE HEART 12/05/22 02/20/25 History amantadine HCl 100 mg tablet 100 mg PO DIRECTED . 10/15/23 02/20/25 History fluticasone propionate 50 50 mcg intranasal DIRECTED 10/15/23 02/20/25 History mcg/actuation nasal Breathing Problems spray,suspension fluticasone fur. 200 mcg-umeclid 1 inh inhalation DAILY 01/07/24 02/20/25 History 62.5 mcg-vilant 25 mcg inhalat.powder (Trelegy Ellipta) urea 40 % topical cream 1 applic topical BID 3 months #60 01/07/24 02/20/25 Rx applic melatonin 5 mg capsule 5 mg PO HS 06/16/24 02/20/25 History semaglutide 2 mg/dose (8 mg/3 mL) 2 mg SQ WEEKLY 06/16/24 02/20/25 History subcutaneous pen injector (Ozempic) trazodone 100 mg tablet 200 mg PO HS 06/16/24 02/20/25 History prednisone 20 mg tablet 20 mg PO BID #10 tabs 11/28/24 02/20/25 Rx pregabalin 150 mg capsule (Lyrica) 150 mg PO TID #90 caps 12/30/24 02/20/25 Rx lidocaine 5 % topical patch 1 patch topical DAILY #30 ea 01/05/25 02/20/25 Rx baclofen 5 mg tablet 5 mg PO BID #60 tabs 01/23/25 02/20/25 Rx baclofen 5 mg tablet 5 mg PO BID #60 tabs 02/18/25 02/20/25 Rx New Prescriptions to Start Prescriptions: Allergies Allergy/AdvReac Type Severity Reaction Status Date / Time Sulfa (Sulfonamide Allergy Verified 02/12/25 11:07 Antibiotics) Exam Constitutional Constitutional: no acute distress *Routine HEENT Exam Head: Present normocephalic and atraumatic Eye: Present PERRL ENT: Present mucous membranes moist *Routine Neck Exam Neck: Present supple *Routine Respiratory Exam Respiratory: Present CTA bilaterally and normal respiratory effort *Routine Cardiovascular Exam Cardiovascular: Present RRR *Routine Abdominal Exam Abdominal: Present soft *Routine Rectal Exam Rectal:: deferred *Routine Genitalia Exam Genitalia:: normal female Routine Back/Spine/Pelvis Exam Back/Spine: Present pain with flexion *Routine Skin Exam Skin: Present intact and warm *Routine Neurological Exam Neurological: Present alert and oriented X3 Routine Psychiatric Exam Psychiatric: Present normal affect Assessment and Plan *Assessment and plan (1) Chronic left hip pain: Status: Acute Category: Medical Code(s): M25.552 - Pain in left hip; G89.29 - Other chronic pain (2) Bilateral sacroiliitis: Status: Acute Category: Medical Code(s): M46.1 - Sacroiliitis, not elsewhere classified (3) Degenerative joint disease (DJD) of lumbar spine: Status: Chronic Qualifiers: Spinal osteoarthritis complication: with radiculopathy Qualified Code(s): M47.26 - Other spondylosis with radiculopathy, lumbar region Category: Medical Code(s): M47.816 - Spondylosis without myelopathy or radiculopathy, lumbar region Plan Patient has been instructed to contact the clinic with any concerns before the next appointment. Dr. Sethi has reviewed this note and agrees with this plan of care. This note was dictated using voice recognition software and make contain errors or omissions. All injections are used with Lidocaine, Bupivacaine and dexamethasone. Occasionally urine drug screen is needed to verify patient's compliance with our office pain contract. This is ordered based off specific treatments related to chronic pain with the potential to abuse certain medications.
--- NOTE | 2025-03-20 13:46 | EXP.PAIN.PRO ---
Procedure Date: 03/20/25 Time: 14:23 Anesthesiologist:: Ines Christianson APRN Complications:: None Pre-procedure Diagnosis:: Bilateral sacroiliitis, degenerative disc disease of lumbar spine, chronic pain syndrome Post-procedure Diagnosis:: Same Indications for Procedure:: Patient is a pleasant 55-year-old female who presents today for intrathecal refill and reprogram. She rates her pain today as 6 out of 10. Patient denies any new falls or injuries. She does state that she feels like overall she is doing better since our last visit. She does state that most of her pain today is more related to the weather. Patient is currently managed with bupivacaine 15 mg/mL with a daily dose of 7.8 mg/day. Patient is currently on pregabalin 150 mg daily. She does state that although we had the discussion about decreasing it down to once a day she has been taking it a little bit more due to the worsening pain. Patient had previously been 3 times a day however in the past few months had some altered kidney function however they do believe it was a different medication that caused this and she was discontinued off of this. Patient states that she does not think she has had any additional activated labs to check her kidney function however she feels much better. Her Bruno has been reviewed and is appropriate. Physical Exam: General: Alert and oriented x3, no acute distress, pleasant and cooperative Lungs: Respirations even and unlabored, symmetrical chest expansion Eyes: PERRL Musculoskeletal: Flexion and extension of lumbar [spine] somewhat guarded secondary to pain, [antalgic gait noted] Neurological: Speech clear, no gross sensory deficit Procedure Details:: Informed consent was obtained and the risk and benefits of the procedure were explained to the patient. The patient had noninvasive monitoring placed including noninvasive blood pressure cuff and pulse oximeter. Patient's pump was interrogated. The area over the pump was cleansed with chlorhexidine as a cleansing solution. In sterile fashion the pump was accessed with a 22-gauge needle. Approximately 5.9 mls of the pump solution was removed and discarded appropriately. The pump was then refilled with 20 mL's of bupivacaine 15 mg/mL. The needle was withdrawn and a bandage was placed over the puncture site. The infusion rate was reprogrammed and continued at its current dosage. The patient tolerated well with no complication. Plan and Disposition:: Patient tolerated the procedure well with no complications and was discharged neurologically intact. I did discuss with the patient that I still would like to end up adding the baclofen to her pump however we would slowly increase that dosage orally. Patient was counseled that this medication is excreted through her kidney so before we actually increased it we would confirm how her kidneys are functioning. I will order a CMP today and will send in refills based off her results. Patient acknowledges understanding agrees with this plan of care. Patient will return to clinic on or before their next intrathecal refill date. We will see the patient back in the clinic at the next intrathecal refill. Patient has been instructed to contact the clinic with any concerns before the next appointment. Dr. Sethi has reviewed this note and agrees with this plan of care. This note was dictated using voice recognition software and make contain errors or omissions. -- It Is medically necessary for this patient to continue to have their intrathecal pump refilled at regular intervals. This patient had an intrathecal pain pump implanted after meeting criteria of chronic intractable pain for greater than 3 months and failing conservative treatments. Patient has committed and been compliant to the treatment plan and all planned follow up care. Since implantation of the intrathecal pain pump, the patient has had decreased pain and been more functional. Oral medications have been reduced including intake of oral opioids. Patient continues to do well with intrathecal therapy with decrease in pain symptoms and increase in functional status. Stopping intrathecal medications can lead to life threatening withdrawal, seizures, cardiac arrest, severe pain, and possible . Pumps that are not refilled at regular intervals can be damages and cause and need for replacement. We continually titrate dose and concentration to optimize pain relief and function. We are limited in concentration for certain drugs to safely deliver medications through the pump and stay within the recommendations from the Polyanalgesic Consensus Committee Guidelines. Depending on dose and concentration these pumps may need to be refilled sooner than 3 months as we titrate. A UDS is needed to verify patient's compliance with our office pain contract. This is ordered based off specific treatments related to chronic pain with the potential to abuse certain medications.
[2025-03-20 13:49] VITALS: BP 122/74; PULSE 89; RESP 16; TEMP 36.5; O2SAT 93; BMI 30.9
[2025-03-20 14:17] VITALS: BP 135/75; PULSE 93; RESP 18; O2SAT 96
[2025-03-20 14:40] VITALS: BP 134/76; PULSE 87; RESP 16; TEMP 36.8; O2SAT 94
[2025-03-20 15:12] LABS: Albumin Level 4.1 g/dl (3.5-5.0); Chloride 103 mmol/L (98-107); Potassium 3.8 mmoL/L (3.5-5.1); Sodium 141 mmol/L (136-145)
[2025-03-20 15:14] LABS: Blood Urea Nitrogen 9 mg/dl (7-17); Creatinine Clearance Estimated 105 mL/min (50-200); Estimated Glomerular Filt Rate 87 ml/min (>60); GFR (African American) 105 ML/MIN (>60)
[2025-03-20 15:15] LABS: Alanine Aminotransferase 29 U/L (12-78); Albumin/Globulin Ratio 1.6 (1.1-1.8); Alkaline Phosphatase 98 U/L (38-126); Anion Gap 9.8 mEq/L (5-15); Aspartate Amino Transferase 43 U/L (14-36); Bilirubin,Total 0.2 mg/dl (0.2-1.3); Calcium 9.3 mg/dl (8.4-10.2); Carbon Dioxide 32 mmol/L (22.0-30.0); Globulin 2.6 g/dL (1.3-3.2); Glucose 94 mg/dl (74-100); Total Protein,Serum 6.7 g/dl (6.3-8.2)
--- NOTE | 2025-03-20 16:13 | PC.NURSE ---
called pt per provider wendy ruiz request, left pt a vm.
== END 2025-03-20 14:40 | disposition home or self-care (01) ==
PROVIDERS: PCP Emergency Medicine; Visit Provider Nurse Practitioner Family
DX: M46.1 Sacroiliitis, not elsewhere classified (principal); M51.369 Other intervertebral disc degeneration, lumbar region without mention of lumbar back pain or lower extremity pain; G89.4 Chronic pain syndrome
CPT/HCPCS: 36415; 62370; 80053; 99221

== ENCOUNTER 2025-04-10 14:01 | Day surgery (SDC) | payer MEDICARE, MEDICAID, SELFPAY ==
--- NOTE | 2025-04-10 14:15 | P.HP_ITS ---
History of Present Illness *Admission Date: 04/10/25 *Reason for visit:: Degenerative disc disease; intrathecal refill *History of present illness: Same [facility] Disclaimer: The information contained in this section may have been updated after the patient was seen, as this information can be updated by other users. Medical History (Updated 03/20/25 @ 14:31 by Ines Christianson APRN) Alteration in renal function History of hypertension Hyperlipidemia COPD (chronic obstructive pulmonary disease) Cancer Asthma Surgical History H/O thyroidectomy H/O total hysterectomy History of cancer surgery Family History Other No significant family history Social History Smoking Status: Current every day smoker tobacco type: cigarettes packs per day: 1 alcohol intake: never substance use type: denies use current occupational status: other Travel in the last 8 weeks?: None household members: significant other and family housing: house 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 current occupational exposures/hazards: No caffeine: Yes Have you lived/traveled outside [place] in past 30 days?: No Contact w/someone who lives/traveled outside US past 30 days?: No Exposure to someone with infectious disease in past 14 days?: No Do you have a fever (greater than 100.4 F or 38 C)?: No Have you tested positive for COVID-19?: No Exposed to someone with COVID-19 in past 14 days?: No Do you have a sore throat?: No Do you have a cough?: No Do you have any weakness?: No Do you have any diarrhea?: No Are you experiencing any unusual bleeding?: No Do you have any muscle aches/pain?: No Do you have any abdominal pain?: No Are you experiencing loss of taste or smell?: No Other Medical History Have you received the Flu Vaccine for this season: No Have you received the Pneumonia Vaccine: No Review of Systems Review of Systems Review of systems:: pertinent systems reviewed and negative unless documented below Review of systems (narrative): Review of Systems: General: No recent weight changes, no fever, no sleep disturbances Respiratory: No cough, no shortness of air, no recurring pulmonary infections Cardiovascular/peripheral vascular: No chest pain, no palpitations, no edema, no shortness of breath Gastrointestinal: No new onset incontinence, normal bowel movements reported Genitourinary: No new onset incontinence Musculoskeletal: Chronic back pain Psychiatric: [Normal mood/affect] Neurological: [Denies weakness in extremities], [denies balance issues] Meds Home Medications and Allergies Home Medications ?Medication ?Instructions ?Recorded ?Confirmed ?Type buspirone 10 mg tablet 10 mg PO BID mood 05/12/21 03/20/25 History estradiol 0.5 mg tablet 0.5 mg PO DAILY HRT 05/12/21 03/20/25 History montelukast 10 mg tablet 10 mg PO PM allergies 05/12/21 03/20/25 History paroxetine HCl 40 mg tablet 40 mg PO DAILY mood 05/12/21 03/20/25 History pantoprazole 40 mg tablet,delayed 40 mg PO DAILY Reflux/Acid reflux 07/07/21 03/20/25 History release lidocaine-prilocaine 2.5 %-2.5 % 1 applic topical .COMPLEX Pain 09/08/21 03/20/25 History topical cream hydroxyzine HCl 50 mg tablet 50 mg PO TID Pain 11/29/21 03/20/25 History buprenorphine 2 mg-naloxone 0.5 mg 1 film sublingual DAILY Pain 01/23/22 03/20/25 History sublingual film aspirin 81 mg tablet,delayed 81 mg PO DAILY Blood thinner 03/23/22 03/20/25 History release metformin 500 mg tablet 500 mg PO DAILY Diabetes 08/03/22 03/20/25 History ondansetron HCl 8 mg tablet 8 mg PO DAILY PRN Stomach Upset 08/03/22 03/20/25 History famotidine 40 mg tablet 40 mg PO DAILY STOMACH 08/21/22 03/20/25 History pravastatin 40 mg tablet 40 mg PO DAILY Cholesterol 08/21/22 03/20/25 History cetirizine 10 mg tablet 10 mg PO DAILY ALLERGIES 11/13/22 03/20/25 History albuterol sulfate 90 mcg/actuation 1 puff inhalation DIRECTED PRN 12/05/22 03/20/25 History aerosol inhaler (ProAir HFA) BREATHING diltiazem HCl 30 mg tablet 30 mg PO ONCE HEART 12/05/22 03/20/25 History amantadine HCl 100 mg tablet 100 mg PO DIRECTED . 10/15/23 03/20/25 History fluticasone propionate 50 50 mcg intranasal DIRECTED 10/15/23 03/20/25 History mcg/actuation nasal Breathing Problems spray,suspension fluticasone fur. 200 mcg-umeclid 1 inh inhalation DAILY 01/07/24 03/20/25 History 62.5 mcg-vilant 25 mcg inhalat.powder (Trelegy Ellipta) urea 40 % topical cream 1 applic topical BID 3 months #60 01/07/24 03/20/25 Rx applic melatonin 5 mg capsule 5 mg PO HS 06/16/24 03/20/25 History semaglutide 2 mg/dose (8 mg/3 mL) 2 mg SQ WEEKLY 06/16/24 03/20/25 History subcutaneous pen injector (Ozempic) trazodone 100 mg tablet 200 mg PO HS 06/16/24 03/20/25 History prednisone 20 mg tablet 20 mg PO BID #10 tabs 11/28/24 03/20/25 Rx lidocaine 5 % topical patch 1 patch topical DAILY #30 ea 01/05/25 03/20/25 Rx baclofen 10 mg tablet 10 mg PO TID #90 tabs 03/20/25 Rx pregabalin 150 mg capsule (Lyrica) 150 mg PO TID #90 caps 03/20/25 Rx New Prescriptions to Start Prescriptions: Allergies Allergy/AdvReac Type Severity Reaction Status Date / Time Sulfa (Sulfonamide Allergy Verified 02/12/25 11:07 Antibiotics) Exam Constitutional Constitutional: no acute distress *Routine HEENT Exam Head: Present normocephalic and atraumatic Eye: Present PERRL ENT: Present mucous membranes moist *Routine Neck Exam Neck: Present supple *Routine Respiratory Exam Respiratory: Present CTA bilaterally *Routine Cardiovascular Exam Cardiovascular: Present RRR *Routine Abdominal Exam Abdominal: Present soft *Routine Rectal Exam Rectal:: deferred *Routine Genitalia Exam Genitalia:: normal female Routine Back/Spine/Pelvis Exam Back/Spine: Present pain with flexion *Routine Skin Exam Skin: Present intact and warm *Routine Neurological Exam Neurological: Present alert and oriented X3 Routine Psychiatric Exam Psychiatric: Present normal affect and normal thought process Assessment and Plan *Assessment and plan (1) Chronic left hip pain: Status: Acute Category: Medical Code(s): M25.552 - Pain in left hip; G89.29 - Other chronic pain (2) Fibromyalgia: Status: Acute Category: Medical Code(s): M79.7 - Fibromyalgia (3) Lumbosacral spondylosis with radiculopathy: Problem Comment: Symptomatic improvement with Lyrica, active follow-up with pain management, currently in physical therapy. Advised to continue follow-up with pain management and return as needed however patient prefers to continue to follow-up with Dr. Yuliana Nichole for Lyrica refills. Status: Chronic Category: Medical Code(s): M47.27 - Other spondylosis with radiculopathy, lumbosacral region (4) Degenerative joint disease (DJD) of lumbar spine: Status: Chronic Qualifiers: Spinal osteoarthritis complication: with radiculopathy Qualified Code (s): M47.26 - Other spondylosis with radiculopathy, lumbar region Category: Medical Code(s): M47.816 - Spondylosis without myelopathy or radiculopathy, lumbar region Plan Patient has been instructed to contact the clinic with any concerns before the next appointment. Dr. Sethi has reviewed this note and agrees with this plan of care. This note was dictated using voice recognition software and make contain errors or omissions. All injections are used with Lidocaine, Bupivacaine and dexamethasone. Occasionally urine drug screen is needed to verify patient's compliance with our office pain contract. This is ordered based off specific treatments related to chronic pain with the potential to abuse certain medications.
--- NOTE | 2025-04-10 14:16 | EXP.PAIN.PRO ---
Procedure Date: 04/10/25 Time: 15:11 Anesthesiologist:: Ines Christianson APRN Complications:: None Pre-procedure Diagnosis:: Degenerative disc disease of lumbar spine with lumbar radiculopathy symptoms, chronic pain syndrome Post-procedure Diagnosis:: Same Indications for Procedure:: Patient is a pleasant 55-year-old female who presents today for intrathecal refill and reprogram. She rates her pain today as 6 out of 10. She denies any new trauma or injury. She does state that she feels like here recently she has had a little bit more problem with spitting up some sputum and just did not feel quite right. Patient states that she is really not had any of these issues since stopping smoking however she has gained about 18 pounds. Patient is currently managed with bupivacaine 15 mg/mL with a daily dose of 7.8 mg/day along with oral pregabalin 250 mg 3 times a day and baclofen 10 mg 3 times a day. She denies any side effects. Her Bruno is currently pending. Physical Exam: General: Alert and oriented x3, no acute distress, pleasant and cooperative Lungs: Respirations even and unlabored, symmetrical chest expansion Eyes: PERRL Musculoskeletal: Flexion and extension of lumbar [spine] somewhat guarded secondary to pain, [antalgic gait noted] Neurological: Speech clear, no gross sensory deficit Procedure Details:: Informed consent was obtained and the risk and benefits of the procedure were explained to the patient. The patient had noninvasive monitoring placed including noninvasive blood pressure cuff and pulse oximeter. Patient's pump was interrogated. The area over the pump was cleansed with chlorhexidine as a cleansing solution. In sterile fashion the pump was accessed with a 22-gauge needle. Approximately 9 mls of the pump solution was removed and discarded appropriately. The pump was then refilled with 20 mL's of bupivacaine 15 mg/mL. The needle was withdrawn and a bandage was placed over the puncture site. The infusion rate was reprogrammed and continued at its current dosage. The patient tolerated well with no complication. Plan and Disposition:: Patient tolerated the procedure well with no complications and was discharged neurologically intact. I will make sure that she does have refills on her medications. Patient will return to clinic on or before their next intrathecal refill date. We will see the patient back in the clinic at the next intrathecal refill. Patient has been instructed to contact the clinic with any concerns before the next appointment. Dr. Sethi has reviewed this note and agrees with this plan of care. This note was dictated using voice recognition software and make contain errors or omissions. -- It Is medically necessary for this patient to continue to have their intrathecal pump refilled at regular intervals. This patient had an intrathecal pain pump implanted after meeting criteria of chronic intractable pain for greater than 3 months and failing conservative treatments. Patient has committed and been compliant to the treatment plan and all planned follow up care. Since implantation of the intrathecal pain pump, the patient has had decreased pain and been more functional. Oral medications have been reduced including intake of oral opioids. Patient continues to do well with intrathecal therapy with decrease in pain symptoms and increase in functional status. Stopping intrathecal medications can lead to life threatening withdrawal, seizures, cardiac arrest, severe pain, and possible . Pumps that are not refilled at regular intervals can be damages and cause and need for replacement. We continually titrate dose and concentration to optimize pain relief and function. We are limited in concentration for certain drugs to safely deliver medications through the pump and stay within the recommendations from the [employer] Consensus Committee Guidelines. Depending on dose and concentration these pumps may need to be refilled sooner than 3 months as we titrate. A UDS is needed to verify patient's compliance with our office pain contract. This is ordered based off specific treatments related to chronic pain with the potential to abuse certain medications.
[2025-04-10 14:36] VITALS: BP 125/68; PULSE 88; RESP 16; O2SAT 93; BMI 31.7
[2025-04-10 15:04] VITALS: BP 171/84; PULSE 88; RESP 18; O2SAT 92
[2025-04-10 15:18] VITALS: BP 155/90; PULSE 88; RESP 16; O2SAT 93
== END 2025-04-10 15:18 | disposition home or self-care (01) ==
PROVIDERS: PCP Emergency Medicine; Visit Provider Nurse Practitioner Family
DX: G89.4 Chronic pain syndrome (principal); M51.16 Intervertebral disc disorders with radiculopathy, lumbar region
CPT/HCPCS: 62370

== ENCOUNTER 2025-05-04 10:54 | Outpatient (CLI) | payer MEDICARE, MEDICAID, SELFPAY ==
--- NOTE | 2025-05-04 10:57 | XR_ITS ---
FINAL REPORT CLINICAL HISTORY: left hip pain FINDINGS: LEFT HIP 3 views of the left hip are obtained. There is no acute fracture or dislocation. Visualized joint spaces are normally aligned. There is no acute soft tissue abnormality. IMPRESSION: No acute bony abnormality. Reviewed, Interpreted and Dictated by Lee Durbin MD Transcribed by Rosa Nieves Authenticated and [facility]
--- OUTSIDE RECORDS SUMMARY | 2025-05-04 11:02 | XMS_ITS | Encounter Summary ---
Author Organization Healthcare Address [address] [place] [address] Care Team Providers Care Calibration Laboratory Technician Name Role Phone Arline Roberts Primary Care Provider Encounter Details Date Type Department Care Team (Late st Contact Info) Description 03/25/2025 [facility] [address] [id number] Dental, Surgeon, [address] [place] [address] Social History Tobacco Use Types Packs/Day Years Used Date Smoking Tobacco: Every Day Alcohol Use Standard Drinks/Week Comments No 0 (1 standard drink = 0.6 oz pur e alcohol) Comments Unknown Sex and Gender Information Value Date Recorded Sex Assigned at Not on file Legal Sex Female 8:36 PM EDT Gender Identity Not on file Sexual Orientation Not on file documented as of this encounter Plan of Treatment Not on file documented as of this encounter Visit Diagnoses Not on filedocumented in this encounter Care Teams Calibration Laboratory Technician Relationship Specialty Start Date End Date Arline Roberts PA [address] [place] [address] [place] [address] PCP - General 04/08/21 documented as of this encounter
--- OUTSIDE RECORDS SUMMARY | 2025-05-04 11:02 | XMS_ITS | Continuity of Care Document ---
Author Organization [facility] Address [address] [facility] [place] [address] Care Team Providers Care Photostatic Copy Maker Name Role Phone HENNA GRIFFIN Construction Project Engineer [phone] TUTU JOHNSON Primary Care Provider [phone] Assessment No assessment recorded. Plan of Treatment Reminders Order Date Submit Date Provider Last Modified By Organization Details Last Modified Time Details Appointments OV EST 15 2024 09:30A M Tutu Johnson MD Not available Not available Not available OV EST 15 2024 01:15P M Fransisco Page M.D Not available Not available Not available PROC 30 2024 07:30A M Edvin Jarrell M.D Not available Not available Not available OV EST 15 2024 02:15P M Henna Griffin NP Not available Not available Not available Lab None record ed. Referral pulmon elizabeth rehab referr al 2024 025 [facility], [address] [facility] [place], [place], [address], 04/30/2025 15:30:27 Procedures None record ed. Surgeries None record ed. Imaging XR, chest, 2 view 2024 025 [facility] ([facility]), [address] [place], [address], 05/01/2025 08:40:43 Medication Orders Reglan 10 mg tablet 2024 025 [facility][id number], [address] [place], [id number], 04/30/2025 18:01:56 levofl oxacin 750 mg tablet 2024 025 [facility] #[id number], [address] [place], [place], [id number], 04/30/2025 14:40:30 ipratr opium 0.5 mg-alb uterol 3 mg (2.5 mg base)/ 3 mL nebuli zation soln 2024 025 [facility] #[id number], [address] [place], [place], [id number], 04/30/2025 14:41:23 Patient TargetsNo targets recorded. Patient Instructions Encounter Date Encounter Id Patient Instructions Last Modified By Organization Details Last Modified Time 04/30/2025 [id number] complete PFT w/ post bronchodilator spirometry* ATHENAFAX Not available 04/30/2025 15:30:30 Reason for Referral Pulmonary Rehab Referral for History of pneumonia Referring Physician: Tutu Johnson, Family Medicine, Encounter Date: 04/30/2025 Results Created Date Observation Date Name Description Value Unit Range Abnormal Flag Note LastModifiedBy Organization Detail LastModifiedTime 04/03/2004/03/2025 CT, chest , w/o contr ast [facility] [address] [facility] [place] [address] [phone] (Phone ) PAU Rodriguez REPORT Name: ROBERTO MOCTEZUMA : 1969 Accoun t #: [id number] Age: 55 Years Patien t Type: Outpat ient Sex: F Access ion#: [id number] Exam Descri ption: CT CHEST WO Exam Reason : r91.1 solita ry pulmon elizabeth nodule Order Date/T jamie: 2024 10:05: 21 AM Dictat ed By: Alejandrina Todd MD Orderi ng Physic lg: DILCIA ED, YOUSOF Attend ing Physic lg: DILCIA ED, YOUSOF EXAM: CT CHEST WITHOU T IV CONTRA ST Reason For Study: r91.1 solita ry pulmon elizabeth nodule COMPAR HAILEY: 022, 2023 screen ing study, 025. TECHNI QUE: CT scan throug h the chest from the thorac ic inlet to the upper abdome n was perfor med withou t contra st. Automa eleni exposu re contro l, adjust ment of mA and/or kV accord ing to patien t size was utiliz ed. FINDIN GS: Signif icant cleari ng of airspa ce diseas e in the lungs since 025. There is some mild ground glass change s noted in the left lower lobe. No layeri ng pleura l effusi ons. Previo usly descri bed 8 mm nodule in the lingul ar area appear s resolv ed. The scarri ng noted in the lingul a previo usly is unchan ged. There is a calcif ied granul ngozi image in the left lower lung field measur ing 5 mm. There is also some scarri ng in the medial portio n of right middle lobe which is unchan ged. There is hepati c steato sis and hepato megaly and adrena ls are normal . No PAGE 1 OF 2 Name: ROBERTO MOCTEZUMA : 1969 Accoun t #: [id number] Age: 55 Years Patien t Type: Outpat ient Sex: F Access ion#: [id number] Exam Descri ption: CT CHEST WO Exam Reason : r91.1 solita ry pulmon elizabeth nodule Order Date/T jamie: 2024 10:05: 21 AM free fluid upper abdome n. No signif icant axilla ry adenop athy or chest wall masses . There is mild DJD in the spine. Sternu m intact . No defini te displa sidra rib fractu res eviden t. No large airway fillin g defect s apprec iated. Thyroi d normal . No signif icant medias tinal adenop athy. Heart size normal . No perica rdial fluid. Calcif ied lymph nodes subcar inal space left hilum. Mild athero sclero tic calcif icatio n aorta which is normal in calibe r. IMPRES DIANE: 1. Resolu tion of the 8 mm nodule in the lingul a since prior study. 2. Mild ground glass change s left lower lobe and lingul a with resolu tion of diffus e severe ground glass infilt rates noted on the most recent study from 025. Findin gs most likely repres ent acute inflam matory /infec tious proces s left lower lung field. Electr onical ly signed by: Alejandrina Todd MD 2024 03:39 PM EDT RP Workst ation: [id number] Princi pal Interp reter Name: Alejandrina Todd Provid er ID: [id number] PAGE 2 OF 2 CC'ed Logic: Orderi ng Provid er: ELGARI ED YOUSOF CC Provid er: ALEX SERNA NDE Attend ing Provid er: ELGARI ED YOUSOF [facility]err ing [facility] [place]F Admitt ing Provid er: [facility] ED YOUSOF [id number] [facility]) [address] [place] [address] [place], [address], 04/06/2025 10:56:17 04/03/20 25 04/03/2025 imagi ng inter preta tion No observ ation record ed. [facility] [address] [facility] [place], [address], 04/06/2025 07:57:34 04/13/20 25 04/13/2025 XR, chest , 2 [facility] [address] [place] [address] Phone: Fax: Name: ROBERTO MOCTEZUMA Exam Date: : [birth year] Age 55 years Gender : F Access ion: [id number] Physic lg: KAREEM JOHNSON NDE Facili ty: [facility] Facili ty HSV: Outpat ient Exam: CHEST PA ^ LAT XR CHEST 2 VIEWS Reason For Study: acute cough COMPAR HAILEY: 25 TECHNI QUE: PA and latera l views of the chest were obtain ed. FINDIN GS Heart size normal . No layeri ng effusi on is eviden t. There is sugges tion of COPD. Minima l basal pneumo deborah can be seen left greate r than right. There is mild peribr onchia l thicke yanick. IMPRES DIANE: Mild basal pneumo deborah left greate r than right. Electr onical ly signed by: Alejandrina Todd MD 2024 12:37 PM EDT RP Workst ation: [id number] Dictat ed By: ALEJANDRINA TODD Transc ribed By: Transc ribed On: 10:14 AM Electr onical ly signed by: ALEJANDRINA TODD Thank you for referr ing [facility]. Legall y authen ticate d by AMADA TINOCO MD 2024-04-13 10:14: 40 CC'ed Logic: Orderi ng Provid er: ALEX SERNA NDE CC Provid er: ALEX SERNA NDE Attend ing Provid er: ALEX HEBERT Referr ing Provid er: AELX HEBERT Admitt ing Provid er: ALEX HEBERT [facility] (Radiology) [address] [place], [address], 04/13/2025 13:55:00 05/01/20 25 04/30/2025 XR, chest , 2 view [facility] [address] [facility] [place] [address] Phone: Fax: Name: ROBERTO MOCTEZUMA Exam Date: 04/30/20 : [birth year] Age 55 years Gender : F Access ion: [id number] Physic lg: KAREEM JOHNSON EMILEE Fac[facility]: [facility] Facili ty HSV: Outpat ient Exam: CHEST PA ^ LAT EXAMIN ATION: TWO VIEW CHEST XR CLINIC AL INDICA TION: Female , 55 years old. HISTOR Y OF PNEUMO DEBORAH. TECHNI QUE: 2 View, PA and latera l, X-ray of the chest was perfor med. [id number] . COMPAR HAILEY: No prior exam. FINDIN GS: Unchan ged calcif ied granul ngozi at the left base. Normal heart and pulmon elizabeth vascul arity. Neithe r costop hrenic angle is blunte d. IMPRES DIANE: Stable calcif ied granul ngozi on the left. No new abnorm al findin gs. Electr onical ly signed by: Patrick vega MD 2024 08:35 AM EDT RP Workst ation: [id number] Dictat ed By: PATRICK BEAR Transc ribed By: Transc ribed On: 04/30/20 3:23 PM Electr onical ly signed by: PATRICK BEAR 04/30/20 [facility] Legall y authen ticate d by ROSIBEL DE LUNA MD 2024-04-30 15:23: 14 CC'ed Logic: Orderi ng Provid er: ALEX LEEGEORGE NDE CC Provid er: ALEX LEEATU NDE Attend ing Provid er: JOSEPHJag SERNA NDE Referr ing Provid er: ALEX LEEBRYANU NDE Admitt ing Provid er: ALEX LEEATU NDE [facility] (Radiology) [address] , [place], [address], 05/03/2025 09:17:32 Result Notes None recorded. Problems Name Problem SNOMED Code Status Onset Date Resolution Date Notes Provider Name and Address Organization Details Recorded Time Blood-ting ed feces 4264638353840 02 Active 2024 Henna Griffin NP [address], [address], [place], [address] , [facility] & [place] 5 11:20:19 Abdominal pain 00757663 Active 2021 Not Available [employer] 4 08:10:34 Osteoarthr itis 373700504 Active 2021 Not Available [employer] 4 08:10:34 Tobacco user 627783037 Active 2021 Not Available [employer] 4 08:10:34 Chronic constipati on 126167572 Active 2021 Not Available [employer] 4 08:10:34 Irritable bowel syndrome 58272331 Active 2021 Not Available [employer] 4 08:10:34 Chronic obstructiv e pulmonary disease 79793275 Active 2021 Not Available [employer] 4 08:10:34 Chronic pain syndrome 194504251 Active 2021 Not Available [employer] 4 08:10:34 Asthma 558503583 Active 2021 Not Available [employer] 4 08:10:34 Neuropathy 243933936 Active 2021 Not Available [employer] 4 08:10:34 Mixed anxiety and depressive disorder 733169762 Active 2021 Not Available [employer] 4 08:10:34 Well controlled type 2 diabetes mellitus 625327092 Active Stephan Santacruz null, [place] - [facility] - [place] & [place] 4 08:44:51 Dyspnea 451327363 Active Stephan Santacruz null, [place] - [facility] - [facility] & [place] 4 08:44:31 Insect sting 041817070 Active Stephan Santacruz null, [place] - [facility] - [facility] & [place] 4 08:45:49 Lower abdominal pain 43227755 Active Stephan Santacruz null, [place] - [facility] - [place] & [place] 4 08:45:40 Exacerbati on of moderate persistent asthma 400134912 Active Stephan Santacruz null, [place] - [facility] - [place] & [place] 4 08:44:48 Burping [id number] Nathaniel Griffin NP [address] [place] [address], [address], [place], [address] [facility] [place] - [facility] & [place] 5 11:20:12 Tobacco dependence caused by cigarettes 1900407130100 9107 Active Stephan Santacruz null, [place] - [facility] - [facility] & [place] 4 08:44:55 Finding of tobacco use and exposure 470127589 Active Stephan Santacruz null, [place] - [facility] - [facility] & [place] 4 08:46:08 Clostridio ides difficile infection 750810983 Active Stephan Santacruz null, [place] - [facility] - [place] & [place] 4 08:43:49 Swollen abdomen 70883182 Active Stephan Santacruz null, [place] - [facility] - [place] & [place] 4 08:44:57 Irritable bowel syndrome characteri zed by constipati on 591523301 Active Stephan Santacruz null, [place] - [facility] - [place] & [place] 4 08:45:43 Esophageal dysphagia 74122090 Active Stephan Santacruz null, [place] - [facility] - [place] & [place] 4 08:44:40 Fall Active Stephan Ayalales null, [place] - [facility] - [place] & [place] 4 08:46:20 Finding of gastrointe stinal tract gas 140083972 Active Stephan Santacruz null, [place] - [facility] - y & [place] 4 08:46:12 Chronic pain 81522811 Active Stephan Santacruz null, [place] - [facility] - & [place] 4 08:43:44 Gastritis 1218837 Active Stephan Santacruz null, [place] - [facility] - & [place] 4 08:46:05 Alteration in bowel eliminatio n 890797221 Active Stephan Santacruz null, [place] - [facility] - & [place] 4 08:43:22 Generalize d abdominal pain 937503191 Active Stephan Santacruz null, [place] - [facility] - & [place] 4 08:46:26 Acute back pain with sciatica 030608365 Active Stephan Asntacruz null, [place] - [facility] - & [place] 4 08:43:13 Idiopathic peripheral autonomic neuropathy 17105023 Active Stephan Santacruz null, [place] - [facility] - & [place] 4 08:46:40 Pneumonia 527047037 Active Stephan Santacruz null, [place] - [facility] - & [place] 4 08:45:02 Pain of multiple joints 15553195 Active Stephan Santacruz null, [place] - [facility] - & [place] 4 08:45:18 Abdominal bloating 781542473 Active Stephan Santacruz null, [place] - [facility] - & [place] 4 08:43:10 Chest pain 87826201 Active Stephan Santacruz null, [place] - [facility] - [place] & [place] 4 08:43:37 Chronic idiopathic constipati on 61837178 Active Stephan Santacruz null, [place] - [facility] - [place] & [place] 4 08:43:41 Moderate persistent asthma 910259644 Active Stephan Santacruz null, [place] - [facility] - [place] & [place] 4 08:45:21 Exogenous hyperlipid emia 111996580 Active Stephan Santacruz null, [place] - [facility] - & [place] 4 08:46:23 Allergic rhinitis 02630555 Active Stephan Santacruz null, [place] - [facility] - [place] & [place] 4 08:43:17 History of drug abuse 475135694 Active Stephan Santacruz null, [place]ra [facility] - [place] & [place] 4 08:46:29 Gastro-eso phageal reflux disease with esophagiti s 649318195 Active Stephan Santacruz null, [place] [facility] - [place] & [place] 4 08:46:01 Injury of nose 71148635 Active Stephan Santacruz null, [place] G[place]ra [facility] - [place] & [place] 4 08:45:53 Disturbanc e in sleep behavior 67424719 Active Stephan Santacruz nullELIA - [facility] - [place] & [place] 4 08:44:24 Cocaine dependence in remission 155560477 Active Stephan Santacruz null, [place] - [facility] - [place] & [place] 4 08:43:53 Osteoarthr itis of multiple joints 339983221 Active Stephan Santacruz null, [place] - [facility] - y & [place] 4 08:45:04 Fatigue 87649557 Active Stephan Santacruz null, [place] - [facility] - y & [place] 4 08:46:16 Daytime somnolence 334362930232 Active Stephan Santacruz null, [place] - [facility] - [place] & [place] 4 08:44:07 Nausea 942237390 Active Henna Griffin NP [address] [place] [address], [address], [place], [address] [facility] [place] Ghotra [facility] - [place] & [place] 5 11:20:00 Gastroesop hageal reflux disease 393961962 Active Stephan Santacruz null, [place] - [facility] - [place] & [place] 4 08:45:59 CT of chest abnormal 8418874013706 9102 Active Stephan Santacruz null, [place] - [facility] - [place] & [place] 4 08:44:03 Hyperlipid emia 81967542 Active Stephan Santacruz null, [place] - [facility] - [place] & [place] 4 08:46:34 Type 2 diabetes mellitus without complicati on 943544845 Active Not Available [facility] 4 08:10:34 Anxiety 26983650 Active Stephan Ayalales null, [place] - [facility] - [facility] & [place] 4 08:43:26 Obstructiv e sleep apnea syndrome 45660941 Active Stephan Santacruz null, [place] - [facility] - [facility] & [place] 4 08:45:09 Nodule of lung 522716790 Active Setphan Santacruz null, [place] - [facility] - [facility] & [place] 4 08:45:12 Diarrhea 73324410 Active Stephan Santacruz null, [place] - [facility] - [facility] & [place] 4 08:44:14 Binge drinker 610699701 Active Stephan Santacruz null, [place] - [facility] - [facility] & [place] 4 08:43:30 Epigastric pain 16107627 Active Stephan Santacruz null, [place] - [facility] - [facility] & [place] 4 08:44:36 Mild intermitte nt asthma 971344407 Active Stephan Santacruz null, [place] - [facility] - [facility] & [place] 4 08:45:29 Lumbar spondylosi s 177838644 Active Stephan Santacruz null, [place] - [facility] - [facility] & [place] 4 08:45:35 Constipati on 13921642 Active Stephan Santacruz null, [place] - [facility] - [facility] & [place] 4 08:43:57 Dysphagia 99592280 Active 2022 Stephan Santacruz null, [place] - [facility] - [facility] & [place] 4 08:44:28 Diarrhea of presumed infectious origin 13308599 Active 2022 Stephan Santacruz null, [place] - [facility] - [facility] & [place] 4 08:44:18 Infection by Strongyloi jeni 7969492 Active 2022 Stephan Santacruz null, [place] - [facility] - [facility] & [place] 4 08:46:43 Gastroesop hageal reflux disease without esophagiti s 318988910 Active 2022 Not Available [facility] 4 08:10:34 Obesity 817070706 Active 2023 Tutu Johnson MD [address] [facility], [place], [address] , [place] - [facility] - [place] & [place] 4 10:22:51 Notes:Some problems listed i n Document: #[id number] could not be added to this patient's chart. Please review this document and add these problems to the patient's chart manually as needed. Problem Notes None recorded. Procedures Surgical History Date Name Laterality Status Provider Name and Address Organization Details Recorded Time 2024 6 Minute Walk Test completed Trini RODRIGEZ - [facility] & [place] 5 12:06:58 2023 Medicare Annual Wellness Visit Health Risk Assessment completed Saba RODRIGEZ - [facility] & [place] 4 09:13:41 2023 Nasal Endoscopy completed Elton Ghotra [facility] & [place] 4 14:11:07 2022 Fiberoptic Laryngoscopy completed Elton RODRIGEZ - [facility] & [place] 3 15:34:17 2017 colonoscopy completed Henna Griffin NP [address] [place] [address], [address], [place], [address], [place] - [facility] - [place] & [place] 5 13:08:30 2017 esophagogastroduodenoscopy completed Alicia Griffin NP [address] [place] [address], [address], [place], [address], [place] - [facility] - [place] & [place] 5 13:08:39 2016 Unlisted px dentalvlr strux completed Akhilm ie Cam RODRIGEZ - [facility] & [place] 2 12:01:52 2015 esophagogastroduodenoscopy completed Nehemias RODRIGEZ - [facility] & [place] 2 12:01:40 2007 Partial hysterectomy completed Saba RODRIGEZ - [facility] & [place] 2 11:59:20 Sinus Surgery completed Irma Jin [place] - [facility] & [place] 4 13:42:39 parathyroidectomy completed Saba Levy [place] - [facility] & [place] 2 12:00:51 Imaging Results None recorded. Procedure Notes None recorded. Medical Equipment None Reported. Allergies Allergen ID Allergen Name Allergen Category Reaction Reaction Severity Criticality Documentation Date Start Date Code Code System Note Provider Name and Address Organization Details Recorded Time Substance with sulfonami de structure and antibacte rial mechanism of action (substanc e) medicatio n abdominal pain nausea vomiting mild moderate moderate Not available 08/24/2022 96922 8003 SNOMED Not Available [facility] 2 14:26:01 22688 codeine medicatio n nausea mild Not available 08/24/2022 2670 RxNorm Not Available [facility] 2 14:26:01 Medications Name Sig Start Date Stop Date Status Note LastModified by Organization Details LastModified Time glmp (rr) cream 09/21 completed Not Available Not Available Not Available Prescriptio n - Prior Authorizati on Request 04/01 completed Not Available Not Available Not Available amantadine HCl 100 mg tablet 12/18 completed Not Available Not Available Not Available cyclobenzap rine 10 mg tablet TAKE 1 TABLET BY MOUTH THREE TIMES DAILY NEEDED FOR MUSCLE SPASM 12/29 completed Not Available Not Available Not Available methocarbam ol 500 mg tablet TAKE 2 TABLETS BY MOUTH EVERY 6 HOURS NEEDED 12/29 completed Not Available Not Available Not Available metformin 500 mg tablet TAKE 1 TABLET BY MOUTH EVERY DAY BEFORE MEALS 2024 active Not Available Not Available Not Avai lable ivermectin 3 mg tablet Take 5 tablets every day by oral route before meals for 1 day. 06/08 completed Not Available Not Available Not Available carvedilol 6.25 mg tablet TAKE 1 TABLET BY MOUTH TWICE DAILY DIRECTED active Not Available Not Available No t Available doxycycline hyclate 100 mg capsule TAKE 1 CAPSULE BY MOUTH TWICE DAILY FOR 10 DAYS 07/07 completed Not Available Not Available Not Available atorvastati n 20 mg tablet 08/24 completed Not Available Not Available Not Available ipratropium 0.5 mg-albutero l 3 mg (2.5 mg base)/3 mL nebulizatio n soln INHALE CONTENTS OF 1 VIAL VIA NEBULIZER FOUR TIMES DAILY active Not Available Not Available No t Available clindamycin HCl 300 mg capsule TAKE 1 CAPSULE BY MOUTH THREE TIMES DAILY 02/26 completed Not Available Not Available Not Available albuterol sulfate 2.5 mg/3 mL (0.083 %) solution for nebulizatio n 04/01 completed Not Available Not Available Not Available azithromyci n 250 mg tablet TAKE 2 TABLETS (500 MG) BY ORAL ROUTE ONCE DAILY FOR 1 DAY THEN 1 TABLET (250 MG) BY ORAL ROUTE ONCE DAILY FOR 4 DAYS 07/21 completed Not Available Not Available Not Available pravastatin 40 mg tablet TAKE 1 TABLET BY MOUTH EVERY DAY 2024 active Not Available Not Available Not Avai lable urea 40 % topical cream APPLY TOPICALLY TWICE DAILY FOR 3 MONTHS 07/07 completed Not Available Not Available Not Available ondansetron HCl 8 mg tablet TAKE 1 TABLET BY MOUTH EVERY 8 HOURS NEEDED 12/29 completed Not Available Not Available Not Available famotidine 40 mg tablet TAKE 1 TABLET BY MOUTH EVERY NIGHT 12/18 completed Not Available Not Available Not Available prednisone 20 mg tablet TAKE 2 TABLETS BY MOUTH DAILY 04/30 completed Not Available Not Available Not Available hydroxyzine HCl 50 mg tablet TAKE 1 TABLET BY MOUTH THREE TIMES DAILY NEEDED active Not Available Not Available No t Available fexofenadin e 180 mg tablet Take 1 tablet every day by oral route. 12/18 completed Not Available Not Available Not Available Reglan 10 mg tablet Take 1 tablet 4 times a day by oral route as needed. 2024 active Not Available Not Available Not Avai lable aspirin 81 mg tablet,maria eugenia yed release TAKE 1 TABLET BY MOUTH ONCE DAILY active Not Available Not Available No t Available Nicotrol 10 mg inhalation cartridge 10/05 completed Not Available Not Available Not Available quetiapine 100 mg tablet TAKE ONE (1) TABLET BY MOUTH AT BEDTIME 08/24 completed Not Available Not Available Not Available ondansetron 8 mg disintegrat ing tablet DISSOLVE 1 TABLET ON THE TONGUE TWICE DAILY NEEDED active Not Available Not Available No t Available lidocaine-p rilocaine 2.5 %-2.5 % topical cream 09/21 completed Not Available Not Available Not Available alprazolam 0.5 mg tablet TAKE 1 TABLET BY MOUTH EVERY DAY active Not Available Not Available No t Available ceftriaxone 1 gram solution for injection Take 1 g by injection route. 07/07 completed Not Available Not Available Not Available trazodone 100 mg tablet TAKE 2 TABLETS BY MOUTH AT BEDTIME NEEDED 04/01 completed Not Available Not Available Not Available OneTouch Ultra Test strips 04/01 completed Not Available Not Available Not Available baclofen 10 mg tablet TAKE 1 TABLET BY MOUTH THREE TIMES DAILY active Not Available Not Available No t Available doxycycline monohydrate 100 mg capsule Take 1 capsule twice a day by oral route. 12/13 completed Not Available Not Available Not Available triamcinolo ne acetonide 40 mg/mL suspension for injection Take 40 mL by injection route. 04/01 completed Not Available Not Available Not Available paroxetine 20 mg tablet Take 1 tablet every day by oral route at bedtime for 30 days. 01/05 completed Not Available Not Available Not Available pantoprazol e 40 mg tablet,maria eugenia yed release TAKE 1 TABLET BY MOUTH DAILY active Not Available Not Available No t Available trazodone 150 mg tablet TAKE 1 TABLET BY MOUTH AT BEDTIME 05/27 completed Not Available Not Available Not Available esomeprazol e magnesium 40 mg capsule,del ayed release Take 1 capsule every day by oral route. 07/07 completed Not Available Not Available Not Available nystatin 100,000 unit/gram topical cream 01/09 completed Not Available Not Available Not Available buspirone 10 mg tablet TAKE 1 TABLET BY MOUTH TWICE DAILY 12/29 completed Not Available Not Available Not Available prednisone 50 mg tablet TAKE 1 TABLET BY MOUTH ONCE DAILY 08/24 completed Not Available Not Available Not Available lidocaine 5 % topical patch APPLY 1 PATCH TOPICALLY TO THE SKIN DAILY. LEAVE ON MOST PAINFUL AREA FOR UP TO 12 HOURS 04/01 completed Not Available Not Available Not Available nicotine 21 mg/24 hr daily transdermal patch 1 PATCH TRANSDERM AL ONCE DAILY 01/09 completed Not Available Not Available Not Available docusate sodium 100 mg capsule TAKE 1 CAPSULE BY MOUTH TWICE DAILY NEEDED FOR CONSTIPAT ION 04/01 completed Not Available Not Available Not Available diclofenac sodium 75 mg tablet,maria eugenia yed release TAKE 1 TABLET BY MOUTH TWICE DAILY active Not Available Not Available No t Available montelukast 10 mg tablet TAKE 1 TABLET BY MOUTH EVERY DAY IN THE EVENING active Not Available Not Available No t Available furosemide 20 mg tablet TAKE 1 TABLET BY MOUTH EVERY DAY 04/13 completed Not Available Not Available Not Available estradiol 0.5 mg tablet TAKE 1 TABLET BY MOUTH DAILY 07/07 completed Not Available Not Available Not Available dexamethaso ne sodium phosphate 4 mg/mL injection solution Inject 4 mL twice a day by intramusc ular route. 04/01 completed Not Available Not Available Not Available cefuroxime axetil 500 mg tablet TAKE 1 TABLET BY MOUTH TWICE DAILY 04/30 completed Not Available Not Available Not Available polyethylen e glycol 3350 17 gram/dose oral powder Take 17 g by oral route for 2 days. 04/13 completed Not Available Not Available Not Available levofloxaci n 500 mg tablet TAKE 1 TABLET BY MOUTH DAILY 05/27 completed Not Available Not Available Not Available estradiol 0.01% (0.1 mg/gram) vaginal cream INSERT 2 GRAMS VAGINALLY DAILY active Not Available Not Available No t Available levofloxaci n 750 mg tablet TAKE 1 TABLET BY MOUTH DAILY active Not Available Not Available No t Available zolpidem 10 mg tablet TAKE 1 TABLET BY MOUTH EVERY DAY active Not Available Not Available No t Available methylpredn isolone 4 mg tablets in a dose pack Take 1 dose pk by oral route. 08/14 completed Not Available Not Available Not Available albuterol sulfate HFA 90 mcg/actuati on aerosol inhaler INHALE 2 PUFFS BY MOUTH EVERY 4 TO 6 HOURS 04/01 completed Not Available Not Available Not Available paroxetine 40 mg tablet TAKE 1 TABLET BY MOUTH AT BEDTIME active Not Available Not Available No t Available diltiazem 30 mg tablet TAKE 1 TABLET BY MOUTH DAILY 12/29 completed Not Available Not Available Not Available ondansetron 4 mg disintegrat ing tablet DISSOLVE 1 TABLET ON THE TONGUE TWICE DAILY FOR 3 DAYS DIRECTED 04/01 completed Not Available Not Available Not Available cefdinir 300 mg capsule Take 1 capsule every 12 hours by oral route for 10 days. 08/14 completed Not Available Not Available Not Available fluticasone propionate 50 mcg/actuati on nasal spray,suspe nsion SHAKE LIQUID AND USE 2 SPRAYS IN EACH NOSTRIL DAILY DIRECTED active Not Available Not Available No t Available doxycycline hyclate 100 mg tablet TAKE 1 TABLET BY MOUTH TWICE DAILY FOR 7 DAYS 04/01 completed Not Available Not Available Not Available Vistaril 50 mg capsule Take 1 {capsule_ as_needed } 3 times a day by oral route. 01/23 completed Not Available Not Available Not Available amoxicillin 875 mg-potassiu m clavulanate 125 mg tablet Take 1 tablet every 12 hours by oral route. 06/08 completed Not Available Not Available Not Available Dulcolax (bisacodyl) 5 mg tablet,maria eugenia yed release TAKE 2 TABLETS BY MOUTH FOR 1 DAY 04/13 completed Not Available Not Available Not Available buspirone 15 mg tablet TAKE 1 TABLET BY MOUTH TWICE DAILY active Not Available Not Available No t Available azithromyci n 500 mg tablet TAKE 1 TABLET BY MOUTH DAILY 04/30 completed Not Available Not Available Not Available buprenorphi ne 2 mg-naloxone 0.[address] 1 TABLET UNDER TONGUE DIRECTED FILL TODAY AND START TOMORROW 08/24 completed Not Available Not Available Not Available buprenorphi ne 8 mg-naloxone [address] 1 TABLET UNDER TONGUE DIRECTED LET DISSOLVE. FOR HOME INDUCTION 08/24 completed Not Available Not Available Not Available buprenorphi ne HCl [address] 1/2 tablet under tongue once a day 01/05 completed Not Available Not Available Not Available nicotine (polacrilex ) 4 mg buccal lozenge 11/28 completed Not Available Not Available Not Available Senna Plus 8.6 mg-50 mg tablet 10/05 completed Not Available Not Available Not Available nitrofurant oin monohydrate /macrocryst als 100 mg capsule TAKE 1 CAPSULE BY MOUTH TWICE DAILY FOR 7 DAYS 04/01 completed Not Available Not Available Not Available BD Ultra-Fine Mini Pen Needle 31 gauge x 3/16 04/01 completed Not Available Not Available Not Available pregabalin 50 mg capsule TAKE 2 CAPSULES BY MOUTH TWICE DAILY 08/24 completed Not Available Not Available Not Available pregabalin 150 mg capsule TAKE 1 CAPSULE BY MOUTH THREE TIMES DAILY active Not Available Not Available No t Available pregabalin 300 mg capsule TAKE 1 CAPSULE BY MOUTH THREE TIMES DAILY 01/05 completed Not Available Not Available Not Available Lyrica 100 mg capsule Take 1 {capsule} by oral route. 01/23 completed Not Available Not Available Not Available quetiapine 50 mg tablet TAKE 1 TABLET 3 TIMES EACH DAY 12/29 completed Not Available Not Available Not Available Allergy Relief (cetirizine ) 10 mg tablet Take 1 tablet every day by oral route. 07/07 completed Not Available Not Available Not Available melatonin 5 mg tablet TAKE 1 TABLET BY MOUTH EVERY NIGHT AT BEDTIME 04/01 completed Not Available Not Available Not Available Solu-Medrol (PF) 125 mg/2 mL solution for injection Take 125 mg by injection route. 07/07 completed Not Available Not Available Not Available Dexilant 60 mg capsule, delayed release Take 1 capsule every day by oral route for 30 days. 12/18 completed Not Available Not Available Not Available melatonin 5 mg capsule TAKE 1 CAPSULE BY MOUTH EVERY NIGHT AT BEDTIME 12/29 completed Not Available Not Available Not Available Suboxone 8 mg-2 mg sublingual film 01/09 completed Not Available Not Available Not Available buprenorphi ne 2 mg-naloxone 0.[address] 1 FILM UNDER TONGUE ONCE A DAY FILL TODAY AND START TODAY 05/27 completed Not Available Not Available Not Available Linzess 290 mcg capsule Take 1 capsule every day by oral route for 30 days. 04/04 completed Not Available Not Available Not Available Fioricet 50 mg-300 mg-40 mg capsule Take 1 capsule twice a day by oral route as needed. 01/09 completed Not Available Not Available Not Available naloxone 4 mg/actuatio n nasal spray SPRAY 1 SPRAY INTO NOSRTIL DIRECTED 11/28 completed Not Available Not Available Not Available Mucus Relief ER 1,200 mg tablet, extended release 08/24 completed Not Available Not Available Not Available Trelegy Ellipta 100 mcg-62.5 mcg-25 mcg powder for inhalation INHALE 1 PUFF EVERY DAY BY INHALATIO N ROUTE. 12/13 completed Not Available Not Available Not Available Ozempic 0.25 mg or 0.5 mg (2 mg/1.5 mL) subcutaneou s pen injector INJECT 0.5 MG EVERY WEEK BY SUBCUTANE OUS ROUTE. 06/08 completed Not Available Not Available Not Available baclofen 5 mg tablet TAKE 1 TABLET BY MOUTH TWICE DAILY 04/13 completed Not Available Not Available Not Available OneTouch Ultra2 Meter 04/01 completed Not Available Not Available Not Available OneTouch Delica Plus Lancet 33 gauge 04/01 completed Not Available Not Available Not Available Trelegy Ellipta 200 mcg-62.5 mcg-25 mcg powder for inhalation INHALE 1 PUFF BY MOUTH EVERY DAY active Not Available Not Available No t Available Ozempic 1 mg/dose (4 mg/3 mL) subcutaneou s pen injector INJECT 1MG SUBCUTANE OUSLY ONCE WEEKLY 06/30 completed Not Available Not Available Not Available Flowflex COVID-19 Antigen Home Test kit DIRECTED 08/24 completed Not Available Not Available Not Available Ozempic 2 mg/dose (8 mg/3 mL) subcutaneou s pen injector INJECT 2 MG UNDER THE SKIN EVERY WEEK active Not Available Not Available No t Available Ozempic 0.25 mg or 0.5 mg (2 mg/3 mL) subcutaneou s pen injector INJECT 0.5MG EVERY WEEK BY SUBCUTANE OUS ROUTE DIRECTED FOR 90 DAYS 03/19 completed Not Available Not Available Not Available Vitals Date Recorded Body height Body mass index (BMI) Body weight Body temperature Oxygen saturation Oxygen saturation in Arterial blood by Pulse oximetry Inhaled oxygen flow rate Heart rate Respiratory rate Systolic blood pressure Diastolic blood pressure Provider Name and Address Organization Details Last Updated DateTime 5 154.94 cm 31.1 kg/m2 08739.0 2 g 97.4 [degF] 94 % 94 % 2 L/min 85 /min 16 /min 124 mm[Hg] 87 mm[Hg] Saba Levy [place] - [facility] - [place] & [place] 5 14:40:08 Social History Question Answer Notes LastModified by Organizat ion Details LastModified Time Tobacco Smoking Status Former Smoker Saba Levy [facility], [facility] & [place] 12/29/2024 14:30:53 Do You Have An Advance Directive? No [email or web address] Information n ot available 05/05/2024 Do You Wear A Helmet When Biking? Yes [email or web address] Information not available 05/05/2024 Are You Blind Or Do You Have Difficulty Seeing? No [email or web address] Information n ot available 05/05/2024 What Is Your Level Of Caffeine Consumption? None [email or web address] Information not available 05/05/2024 In The 14 Days Before Symptom Onset, Have You Had Close Contact With A Laboratory-confirm ed COVID-19 While That Case Was Ill? No [email or web address] Information n ot available 05/05/2024 In The 14 Days Before Symptom Onset, Have You Had Close Contact With A Person Who Is Under Investigation For COVID-19 While That Person Was Ill? No [email or web address] Information not available 05/05/2024 Have You Been To An Area Known To Be High Risk For COVID-19? No [email or web address] Information not available 05/05/2024 Are You Deaf Or Do You Have Serious Difficulty Hearing? No [email or web address] Information not available 05/05/2024 What Type Of Diet Are You Following? REGULAR [email or web address] Information n ot available 05/05/2024 Have You Processed Blood Or Body Fluids From An Ebola Virus Disease Patient Without Appropriate PPE? No [email or web address] Information not available 05/05/2024 Do You Reside In Or Have You Traveled To An Area Where Ebola Virus Transmission Is Active? No [email or web address] Information not available 05/05/2024 Have There Been Any Changes To Your Family Or Social Situation? No [email or web address] Information no t available 05/05/2024 What Is The Fluoride Status Of Your Home? Unknown [email or web address] Information not available 05/05/2024 When Did You Quit Smoking? 1-5yearssince lastcigarette Information not available 12/29/2024 Are There Any Guns Present In Your Home? No [email or web address] Information not available 05/05/2024 Have You Recently Or Are You Planning To Travel To An Area With Zika Virus? No [email or web address] Information not available 05/05/2024 Do You Use Insect Repellent Routinely? Yes [email or web address] Information not available 05/05/2024 In General, Would You Say Your Health Is Good Information not available 05/27/2024 How Would You Describe The Condition Of Your Mouth And Teeth including False Teeth Or Dentures? Good Information n ot available 05/27/2024 In The Past 7 Days, How Many Servings Of Fruits And Vegetables Did You Typically Eat Each Day? (1 Serving = 1 Cup Of Fresh Vegetables, 1 2 Cup Of Cooked Vegetables, Or 1 Medium Piece Of Fruit. 1 Cup = Size Of A Baseball.) 1-2 Servings Per Day Information not available 05/27/2024 In The Past 7 Days, How Many Servings Of High Fiber Or Whole Grain Foods Did You Typically Eat Each Day? (1 Serving = 1 Slice Of 100% Whole Wheat Bread, 1 Cup Of Whole-grain Or High-fiber Jtkwt-yx-fud Cereal, 1 2 Cup Of Cooked Cereal Such As Oatmeal, Or 1 2 Cup Of Cooked Brown Rice Or Whole Wheat Pasta.) 1-2 Servings Per Day Information not available 05/27/2024 In The Past 7 Days, How Many Servings Of Fried Or High-fat Foods Did You Typically Eat Each Day? (Examples Include Fried Chicken, Fried Fish, [place], [place] Clarinda, Potato Chips, Eagle Chips, Doughnuts, Creamy Salad Dressings, And Foods Made With Whole Milk, Cream, Cheese, Or Mayonnaise.) 1-2 Servings Per Day Information not available 05/27/2024 In The Past 7 Days, How Many Sugar-sweetened (not Diet) Beverages Did You Typically Consume Each Day 1-2 Drinks Per Day Information not available 05/27/2024 Each Night, How Many Hours Of Sleep Do You Usually Get? 7-8 Hours Information not available 05/27/2024 Do You Snore Or Has Anyone Told You That You Snore? No Information not available 05/27/2024 In The Past 7 Days, How Often Have You [place] Sleepy During The Daytime? Rarely Information not available 05/27/2024 Do You Have Chronic Pain? No Information not available 05/27/2024 In The Past 7 Days, How Would You Rate Your Pain? Mild Pain(1-3) Information not available 05/27/2024 Are You In A Pain Management Program? No Information not available 05/27/2024 Do You Take Opioids For Your Pain? No Information not available 05/27/2024 How Often Is Stress A Problem For You In Handling Such Things As: Your Health, Your Finances, Your Family And Social Relationships, Your Work? Sometimes Information not available 05/27/2024 How Often Do You Get The Social And Emotional Support You Need: Usually Information not available 05/27/2024 In The Past 7 Days, Did You Need Help From Others To Take Care Of Things Such As Laundry And Housekeep- Ing, Banking, Shopping, Using The Telephone, Food Preparation, Transportation, Or Taking Your Own Medications? No Information not available 05/27/2024 Do You Live Alone? No Inform ation not available 05/27/2024 Does Your Home Have Any Fall Risks (un-level Floors, Unfastened Rugs, Poor Lighting, Etc)? No Information not available 05/27/2024 Do You Feel Safe At Home? Yes Information not available 05/05/2024 Do You Have A Medical Power Of Speech Scientist? No [email or web address] Information not available 05/05/2024 What Was The Date Of Your Most Recent Tobacco Screening? 05/20/2024 [email or web address] Information not available 05/20/2024 What Is Your Current Pack Years? 20-29packyear s Information not available 08/24/2022 Do You Have Any Pets? No [email or web address] Information not available 05/05/2024 What Is Your Relationship Status? Domestic Partner Information not available 05/27/2024 Do You Use Your Seat Belt Or Car Seat Routinely? Yes [email or web address] Information not available 05/05/2024 Are You Sexually Active? Yes Information not available 05/27/2024 Do You Have Smoke And Carbon Monoxide Detectors In Your Home? Yes [email or web address] Information not available 05/05/2024 Are You Passively Exposed To Smoke? No [email or web address] Information no t available 05/05/2024 How Much Tobacco Do You Smoke? 1 PPD Information not available 08/24/2022 Do You Use Sunscreen Routinely? Yes [email or web address] Information not available 05/05/2024 Has Tobacco Cessation Counseling Been Provided? Yes Information not available 08/24/2022 On What Date Was Tobacco Cessation Counseling Provided? 05/20/2024 Information not available 05/20/2024 Do You Have Difficulty Walking Or Climbing Stairs? No [email or web address] Information not available 05/05/2024 Are You Currently In School? No [email or web address] Information not available 05/05/2024 Sex: Unknown Functional Status Question Answer Note LastModified by Organizat ion Details LastModified Time Do you use any illicit or recreational drugs? No Information not available 08/24/2022 Do you or have you ever used any other forms of tobacco or nicotine? No Information not available 08/24/2022 What is your level of alcohol consumption? None Information not available 08/24/2022 Are you currently employed? No [email or web address] Information not available 05/05/2024 Do you have transportation difficulties? No [email or web address] Information not available 05/05/2024 Are you able to walk? YESWOREST [email or web address] Information not available 05/05/2024 Do you have difficulty doing errands alone? No [email or web address] Information not available 05/05/2024 Are you able to care for yourself? Yes [email or web address] Information not available 05/05/2024 Do you have difficulty dressing or bathing? No [email or web address] Information not available 05/05/2024 What is your exercise level? None [email or web address] Information not available 05/05/2024 Mental Status Question Answer Note LastModified by Organizat ion Details LastModified Time Do you feel stressed (tense, restless, nervous, or anxious, or unable to sleep at night)? ES2512-3 [email or web address] Information not available 05/05/2024 Do you have difficulty concentrating, remembering or making decisions? No [email or web address] Information no t available 05/05/2024 Family History Relationship Description Onset Age of this Age Resolved Age Notes LastModified by Organization Details LastModified Time Mother Hypertensive disorder [email or web address] Not available 2021 11:55:49 Mother Hyperthyroid ism [email or web address] Not available 2021 11:56:00 Father Essential hypertension tpardini Not available 11:56:12 Father Neuropathy tpardini Not availab le 08/24/2022 11:57:08 Father Diabetes mellitus [email or web address] Not available 2021 11:57:23 Father Malignant tumor of colon [email or web address] Not available 2024 08:39:31 Son [place] disease tpardini Not available 2021 11:57:49 Son Cerebrovascu lar accident tpardini Not available 11:58:04 Paternal Grandmother Diabetes mellitus [email or web address] Not available 2024 08:39:50 Medical History Condition Response Allergies/Hayfever N Heart Problems N None N Heart Conditions N Emphysema N Migraines N Thyroid Problems Y Developmental Delay N Depression Y Glaucoma N Anemia N Immune System Disorder N Anesthesia Complications N Heart Attack (TN) N Anxiety Disorder Y Diabetes Y Bleeding Disorder N Arthritis N Hearing Loss N Tuberculosis N Acid Reflux (GERD) Y Hyperlipidemia Y Cancer N Stroke N Asthma Y Sleep Disorder N GERD/Reflux N Heart Disease N Fibromyalgia N Headaches N Hypertension N Speech Delay N Kidney Disease N Gynecological History Statement/Question Response Current Control Method Hysterectom y Sexually Active? N Obstetrics History GPAL:G 0 P 0 0 0 0 Immunizations Vaccine Type Date Status Note Provider Nam e and Address Organization Details Recorded Time COVID-19 vaccine, vector-nr, rS-Ad26, PF, 0.5 mL 1 completed Not Available [facility] 01/02/2024 08:10:35 TST-PPD intradermal 2 completed Not Available [facility] 01/02/2024 08:10:35 COVID-19, mRNA, LNP-S, PF, 100 mcg/0.5mL dose or 50 mcg/0.25mL dose 2 completed Ronit zapata [place] - [facility] - [place] & [place] 02/24/2024 12:29:29 COVID-19 vaccine, vector-nr, rS-Ad26, PF, 0.5 mL 1 completed Ronit Lugo null, [place] - [facility] - [place] & [place] 02/24/2024 12:29:29 COVID-19, mRNA, LNP-S, bivalent, PF, 50 mcg/0.5 mL or 25mcg/0.25 mL dose 3 completed ELIA [place] - [facility] - [place] & [place] 02/24/2024 12:29:29 COVID-19, mRNA, LNP-S, PF, 50 mcg/0.5 mL 3 completed ELIA Cord[place] - [facility] - [place] & [place] 02/24/2024 12:29:29 Past Encounters Encounter ID Performer Location Encounter Start Date Encounter Closed Date Diagnosis/Indication Diagnosis SNOMED-CT Code Diagnosis ICD10 Code Diagnosis Note [id number] Henna Griffin NP [address] [address] 04/01/2025 10:39:31 04/01/2025 11:19:03 Gastro-esophageal reflux disease with esophagitis 117017910 K21.00 Continues pantoprazo le 40 mg daily for treatment. Recently experienci ng increased dyspepsia and belching. Recommend continued use of PPI as prescribed as well as reflux precaution s. Plan for EGD to further evaluate. Chronic id iopathic constipation 22552941 K59.04 Currently controlled with use of MiraLax and stool softeners. Nausea 469354808 R11.0 daily episodes of nausea and dyspepsia for the past several weeks. She is currently prescribed NSAIDs for arthritis. Recommend EGD to evaluate for erosive gastritis, PUD, other. Burping 835266848 R14.2 Increased belching and dyspepsia over the past several weeks. Recommend continued use of PPI as prescribed . Plan for EGD as above to further evaluate. Blood-tinged feces 50851 19085 24525 K92.1 Episodes of hematochez ia that occurred several weeks ago. Currently denies symptoms. Recommend colonoscop y to further evaluate to rule out underlying colon polyps, lesions, internal hemorrhoid s. Last colonoscop y 02/2018. Family his tory of cancer of colon 371934491 Z80.0 Patient's father with history colon cancer. Plan for colonoscop y as above. [id number] Tutu Johnson MD [address] [place] [address] 04/13/2025 08:50:17 04/13/2025 10:07:55 Acute cough [id number] 37857891 R05.1 Will obtain an x-ray. If it shows any significan t findings will go ahead and put patient on antibiotic s and steroids. We are currently waiting results. Anxiety 75440449 F41.9 Continue with current regimen. Well contr olled type 2 diabetes mellitus 207213424 E11.9 Patient to continue with regimen that includes Ozempic. At her request will increase Ozempic to help assist in weight loss. Body mass index 30+ - obesity 297116558 E66.9 patient to restart her Ozempic this should help her weight gain journey. She has also been advised to continue with diet and exercise. [id number] Tutu Johnson MD [address] [place] [address] 04/30/2025 14:26:14 04/30/2025 14:44:39 History of pneumonia 376043043 Z87.01 will obtain chest x-ray and start patient on Levaquin.I am going to refer her for pulmonary rehab. Nausea 058217588 R11.0 Patient has been advised to try Reglan for her chronic nausea. Obstructive emphysema 16 977687 J43.9 Chronic ob structive pulmonary disease 93282289 J44.9 Patient to continue with oxygen at this time. Health Concerns Section Related Observation LastModified by Organization Detai ls LastModified Time None Recorded Concern Status LastModified by Organization Details LastModified Time None Recorded Payers Encounter Date Sequence Insurance Name Policy Number Policy Reyes Covered Member ID Reyes Member ID Guarantor Name 04/30/2025 2 [employer]ICAID-[facility] CHO[facility] - FFS/TRADITIO NAL Roberto Rolon [id number] Roberto Moctezuma 04/30/2025 1 [employer] (MEDICARE REPLACEMENT/ ADVANTAGE - PPO) Roberto Moctezuma [id number] Roberto Moctezuma Notes Date Note Type Note Provider Name and Address Organization Details Recorded Time 04/30/2025 text/html patient presents today to follow-up from hospital admission. Patient was admitted for pneumonia 2 weeks ago. She states that she was sent home on antibiotics however she has continued to cough. Cough is productive of yellowish sputum. Tutu Johnson MD [address] [facility], [place], [address], [facility] & [place] 04/30/2025 15:22:50 OBGyn Episode No OBEpisode recorded.
--- OUTSIDE RECORDS SUMMARY | 2025-05-04 11:02 | XMS_ITS | Continuity of Care Document ---
Author Organization [place] - [facility] Address [address] [place] [address] Care Team Providers Care Frame Tender Name Role Phone HENNA GRIFFIN Bolt Cutter TUTU JOHNSON Primary Care Provider Assessment No assessment recorded. Plan of Treatment Reminders Order Date Submit Date Provider Last Modified By Organization Details Last Modified Time Details Appointments OV EST 15 2024 09:30A M Tutu Johnson MD Not available Not available Not available OV EST 15 2024 01:15P Sherrill Page M.D Not available Not available Not available PROC 2024 07:30A Sherrill Jarrell M.D Not available Not available Not available OV EST 15 2024 02:15P M Henna Griffin NP Not available Not available Not available Lab None recorded . Referral None recorded . Procedures upper endoscop y procedur e (EGD) (PROC) 2024 025 [facility] (Central Scheduling), [address] [place] [address] [place], [address], 04/29/2025 12:53:29 colonosc opy procedur e (PROC) 2024 025 [facility] (Central Scheduling), [address] [place] [address] [place], [address], 04/08/2025 07:56:30 Surgeries None recorded . Imaging None recorded . Medication Orders Miralax 17 gram/dos e oral powder 2024 025 [id number], [address] [place], [place], [id number], 04/13/2025 09:05:37 Dulcolax (bisacod yl) 5 mg tablet,d elayed release 2024 025 [id number], [address] [place], [place], [id number], 04/13/2025 09:05:32 Patient TargetsNo targets recorded. Patient InstructionsNo instructions recorded. Reason for Referral None Reported. Results Created Date Observation Date Name Description Value Unit Range Abnormal Flag Note LastModifiedBy Organization Detail LastModifiedTime 04/03/2004/03/2025 CT, chest , w/o contr ast [facility] [address] [facility] [place] [address] [phone] (Phone ) PAU Rodriguez REPORT Name: ROBERTO MOCTEZUMA : 1969 Accoun t #: [id number] Age: 55 Years Patien t Type: Outpat ient Sex: F Access ion#: [id number] Exam Descri ption: CT CHEST WO Exam Reason : r91.1 solita ry pulmon elizabeth nodule Order Date/T jamie: 2024 10:05: 21 AM Dictat ed By: Alejandrina Todd MD Orderi Physic lg: RADHA HA ED Attend ing Physic lg: DILCIA BUTLER, YOUSOF EXAM: CT CHEST WITHOU T IV [...] ROBERTO MOCTEZUMA : 1969 Accoun t #: [id number] 1 Age: 55 Years Patien t Type: Outpat ient Sex: F Access ion#: [id number] Exam Descri ption: CT CHEST WO [...] ELGARI ED YOUSOF Referr ing Provid er: ELGARI ED YOUSOF Admitt ing Provid er: ELBANNERI ED YOUSOF [facility] (Central Scheduling) [address] [place] [address] [place], [address], 04/06/2025 10:56:17 04/03/2004/03/2025 imagi ng inter preta tion No observ ation record ed. tpardini [facility] (Registration ) [address] [place] [address] [place], [address], 04/06/2025 07:57:34 04/13/20 25 04/13/2025 XR, chest , 2 [facility] [address] [place] [address] Phone: Fax: Name: ROBERTO MOCTEZUMA Exam Date: : [birth year] Age 55 years Gender : F Access ion: [id number] Physic lg: KAREEM JOHNSON Facili ty: [facility] Facili ty HSV: Outpat ient Exam: [...] you for referr ing ROBERTO MOCTEZUMA to [facility]. Legall y authen ticate d by AMADA TINOCO MD 04-13 10:14: 40 CC'ed Logic: Orderi ng Provid er: ALEX HEBERT CC Provid er: ALEX HEBERT Attend ing Provid er: ALEX HEBERT Referr ing Provid er: ALEX HEBERT Admitt ing Provid er: ALEX HEBERT [facility] (Radiology) [address] [place], [address], 04/13/2025 13:55:00 05/01/20 25 04/30/2025 XR, chest , 2 view [facility] [address] [place] [address] [address] Phone: Fax: Name: ROBERTO MOCTEZUMA Exam Date: 04/30/20 : [birth year] Age 55 years Gender : F Access ion: [id number] Physic lg: KAREEM JOHNSON Facili ty: [facility] Facili ty HSV: Outpat ient Exam: CHEST PA ^ LAT EXAMIN ATION: TWO VIEW CHEST XR CLINIC AL INDICA TION: Female , 55 years old. HISTOR Y OF PNEUMO DEBORAH. TECHNI QUE: 2 View, PA and latera l, X-ray of the chest was perfor med. [id number] . COMPAR HAILEY: No prior exam. FINDIN [...] you for referr ing ROBERTO MOCTEZUMA to [facility]. Legall y authen ticate d by ROSIBEL DE LUNA MD 2024-0 04-30 15:23: 14 CC'ed Logic: Orderi ng Provid er: ALEX HEBERT CC Provid er: ALEX HEBERT Attend ing Provid er: ALEX HEBERT Referr ing Provid er: ALEX HEBERT Admitt ing Provid er: ALEX HEBERT [facility] (Rad[facility] [address], [place], [address], 05/03/2025 09:17:32 Result Notes None recorded. Problems Name Problem SNOMED Code Status Onset Date Resolution Date Notes Provider Name and Address Organization Details Recorded Time Blood-ting ed feces 1615796208806 02 Active 2024 Henna Griffin NP [address], [address], [place], [address] , [place] & [place] 5 11:20:19 Abdominal pain 04884384 Active 2021 Not Available [facility] 4 08:10:34 Osteoarthr itis 897460243 Active 2021 Not Available [facility] 4 08:10:34 Tobacco user 161340380 Active 2021 Not Available [facility] 4 08:10:34 Chronic constipati on 628167279 Active 2021 Not Available [facility] 4 08:10:34 Irritable bowel syndrome 64437054 Active 2021 Not Available [facility] 4 08:10:34 Chronic obstructiv e pulmonary disease 18746860 Active 2021 Not Available [facility] 4 08:10:34 Chronic pain syndrome 125441895 Active 2021 Not Available [facility] 4 08:10:34 Asthma 030776198 Active 2021 Not Available [facility] 4 08:10:34 Neuropathy 283373414 Active 2021 Not Available [facility] 4 08:10:34 Mixed anxiety and depressive disorder 206218885 Active 2021 Not Available [facility] 4 08:10:34 Well controlled type 2 diabetes mellitus 707800066 Active Stephan Santacruz null, [place] [facility] [place] & [place] 4 08:44:51 Dyspnea 567428596 Active Stephan Santacruz null, [place] 4 08:44:31 Insect sting 582899986 Active Stephan Santacruz null, [place] 4 08:45:49 Lower abdominal pain 72010864 Active Stephan Santacruz null, [place] 4 08:45:40 Exacerbati on of moderate persistent asthma 298591799 Active Stephan Santacruz null, [place] [facility] & [place] 4 08:44:48 Burping 680849560 Active Henna Griffin NP [address] [place] [address], [address], [place], [address] , [place] [facility] & [place] 5 11:20:12 Tobacco dependence caused by cigarettes 5282442334582 9107 Active Stephan Santacruz null, [place] [facility] [place] [facility] & [place] 4 08:44:55 Finding of tobacco use and exposure 961164958 Active Stephan Santacruz [place], [place] [facility] [place] [facility] & [place] 4 08:46:08 Clostridio ides difficile infection 003429290 Active Stephan Santacruz null, [place] [facility] [facility] & [place] 4 08:43:49 Swollen abdomen 20332366 Active Stephan Santacruz null, [place] [facility] & [place] 4 08:44:57 Irritable bowel syndrome characteri zed by constipati on 368322338 Active Stephan Santacruz null, [place] [facility] [facility] & [place] 4 08:45:43 Esophageal dysphagia 74567223 Active Stephan Santacruz null, [place] [facility] & [place] 4 08:44:40 Fall Active Stephan Santacruz null, [place] & [place] 4 08:46:20 Finding of gastrointe stinal tract gas 357140077 Active Stephan Santacruz null, [place] & [place] 4 08:46:12 Chronic pain 32021936 Active Stephan Santacruz null, [place] 4 08:43:44 Gastritis 1943591 Active Stephan Santacruz null, [place] 4 08:46:05 Alteration in bowel eliminatio n 467725469 Active Stephan Santacruz null, [place] 4 08:43:22 Generalize d abdominal pain 355703726 Active Stephan Santacruz null, [place] [facility] & [place] 4 08:46:26 Acute back pain with sciatica 859396112 Active Stephan Ayalales null, [place] - [facility] - [facility] & [place] 4 08:43:13 Idiopathic peripheral autonomic neuropathy 80694420 Active Stephan Santacruz null, [place] - [facility] - [facility] & [place] 4 08:46:40 Pneumonia 726848176 Active Stephan Santacruz null, [place] [facility] & [place] 4 08:45:02 Pain of multiple joints 40559463 Active Stephan Santacruz null, [place] - [facility] - [facility] & [place] 4 08:45:18 Abdominal bloating 960037817 Active Stephan Santacruz null, [place] - [facility] & [place] 4 08:43:10 Chest pain 68448829 Active Stephan Santacruz null, [place] - [facility] - [facility] & [place] 4 08:43:37 Chronic idiopathic constipati on 39902757 Active Stephan Santacruz null, [place] Ghotra LP[facility] - [facility] & [place] 4 08:43:41 Moderate persistent asthma 165092214 Active Stephan Santacruz null, [place] - [facility] - [facility] & [place] 4 08:45:21 Exogenous hyperlipid emia 451253430 Active Stephan Santacruz null, [place] - [facility] - [facility] & [place] 4 08:46:23 Allergic rhinitis 78644552 Active Stephan Ayalales null, [place] [facility] & [place] 4 08:43:17 History of drug abuse 211800343 Active Stephan Santacruz null, [place] - [facility] & [place] 4 08:46:29 Gastro-eso phageal reflux disease with esophagiti s 376672200 Active Stephan Santacruz null, [place] - [facility] & [place] 4 08:46:01 Injury of nose 33555028 Active Stephan Santacurz null, [place] - [facility] - [facility] & [place] 4 08:45:53 Disturbanc e in sleep behavior 75951684 Active Stephan Santacruz null, [place] - [facility] - y & [place] 4 08:44:24 Cocaine dependence in remission 245256851 Active Stephan Santacruz null, [place] - [facility] - y & [place] 4 08:43:53 Osteoarthr itis of multiple joints 908490690 Active Stephan Santacrzu null, [place] - [facility] - & [place] 4 08:45:04 Fatigue 59179171 Active Stephan Santacruz null, [place] - [facility] - y & [place] 4 08:46:16 Daytime somnolence 707405366905 Active Stephan Santacruz null, [place] - [facility] - & [place] 4 08:44:07 Nausea 544664521 Active Henna Griffin NP [address] [place] [address], [address], [place], [address] [facility] [place] - & [place] 5 11:20:00 Gastroesop hageal reflux disease 335794776 Active Stephan Santacruz null, [place] - [facility] - & [place] 4 08:45:59 CT of chest abnormal 4008792807778 9102 Active Stephan Santacruz null, [place] - [facility] - & [place] 4 08:44:03 Hyperlipid emia 21529614 Active Stephan Santacruz null, [place] - [facility] - & [place] 4 08:46:34 Type 2 diabetes mellitus without complicati on 552041573 Active Not Available [facility] 4 08:10:34 Anxiety 24236689 Active Stephan Santacruz null, [place] - [facility] - y & [place] 4 08:43:26 Obstructiv e sleep apnea syndrome 11820272 Active Stephan Santacruz null, [place] - [facility] - y & [place] 4 08:45:09 Nodule of lung 739718342 Active Stephan Santacruz null, [place] - [facility] - [place] & [place] 4 08:45:12 Diarrhea 74075938 Active Stephan Santacruz null, [place] - [facility] - [place] & [place] 4 08:44:14 Binge drinker 934888821 Active Stephan Santacruz null, [place] & [place] 4 08:43:30 Epigastric pain 42037313 Active Stephan Santacruz null, [place] 4 08:44:36 Mild intermitte nt asthma 193755389 Active Stephan Santacruz null, [place] & [place] 4 08:45:29 Lumbar spondylosi s 765883549 Active Stephan Santacruz null, [place] & [place] 4 08:45:35 Constipati on 57373644 Active Stephan Santacruz null, [place] 4 08:43:57 Dysphagia 67915207 Active 2022 Stephan Santacruz null, [place] & [place] 4 08:44:28 Diarrhea of presumed infectious origin 73826919 Active 2022 Stephan Santacruz null, [place] & [place] 4 08:44:18 Infection by Strongyloi jeni 6909561 Active 2022 Stephan Santacruz null, [place] & [place] 4 08:46:43 Gastroesop hageal reflux disease without esophagiti s 494365558 Active 2022 Not Available [facility] 4 08:10:34 Obesity 828029625 Active 2023 Tutu Johnson MD [address] [place] [address], [address] [facility] [place] & [place] 4 10:22:51 Notes:Some problems listed i n Document: #[id number] could not be added to this patient's chart. Please review this document and add these problems to the patient's chart manually as needed. Problem Notes None recorded. Procedures Surgical History Date Name Laterality Status Provider Name and Address Organization Details Recorded Time 2024 6 Minute Walk Test completed Trini Phillips [place] & [place] 5 12:06:58 2023 Medicare Annual Wellness Visit Health Risk Assessment completed Saba Kirbyedilson [place] - [facility] & [place] 4 09:13:41 2023 Nasal Endoscopy completed Elton RODRIGEZ [place] [facility] & [place] 4 14:11:07 2022 Fiberoptic Laryngoscopy completed Elton RODRIGEZ [place] [facility] & [place] 3 15:34:17 2017 colonoscopy completed Henna Griffin NP [address], [address], [place], [address], [place] [facility] & [place] 5 13:08:30 2017 esophagogastroduodenoscopy completed Alicia Griffin NP [address], [address], [place], [address], [place] - [facility] - [place] & [place] 5 13:08:39 2016 Unlisted px dentalvlr strux completed Tamm ie Danieljennifer [place] - [facility] & [place] 2 12:01:52 2015 esophagogastroduodenoscopy completed Ariella Sanchezjennifer [place] - [facility] & [place] 2 12:01:40 2007 Partial hysterectomy completed Saba Sanchezjennfier [place] - [facility] & [place] 2 11:59:20 Sinus Surgery completed Irma RODRIGEZ - [facility] & [place] 4 13:42:39 parathyroidectomy completed Sabachin Sanchezrosalbai [place] [facility] & [place] 2 12:00:51 Imaging Results None recorded. Procedure Notes None recorded. Medical Equipment None Reported. Allergies Allergen ID Allergen Name Allergen Category Reaction Reaction Severity Criticality Documentation Date Start Date Code Code System Note Provider Name and Address Organization Details Recorded Time 49320 Substance with sulfonami de structure and antibacte rial mechanism of action (substanc e) medicatio n abdominal pain nausea vomiting mild moderate moderate Not available 08/24/2022 90746 8003 SNOMED Not Available [facility] 14:26:01 80126 codeine medicatio n nausea mild Not available 08/24/2022 2670 RxNorm Not Available [facility] 14:26:01 Medications Name Sig Start Date Stop [...] saturation in Arterial blood by Pulse oximetry Heart rate Provider Name and Address Organization Details Last Updated DateTime 5 154.94 cm 31.8 kg/m2 17518.2 4 g 97.1 [degF] 97 % 97 % 76 /min Anu [place] [facility] & [place] 11:02:30 Social History Question Answer Notes LastModified by Organizat ion Details LastModified Time Tobacco Smoking Status Former Smoker Saba Levy jodi, [facility] & [place] 12/29/2024 14:30:53 Do You Have An Advance Directive? No [email or web address] Information n ot available 05/05/2024 Do You Wear A Helmet When Biking? Yes [email or web address] Information not available 05/05/2024 Are You Blind Or Do You Have Difficulty Seeing? No [email or web address] Information n ot available 05/05/2024 What Is Your Level Of Caffeine Consumption? None [email or web address] Information not available 05/05/2024 In The 14 Days Before Symptom Onset, Have You Had Close Contact With A Laboratory-confirm ed COVID-19 While That Case Was Ill? No [email or web address] Information n ot available 05/05/2024 In The 14 Days Before Symptom Onset, Have You Had Close Contact With A Person Who Is Under Investigation For COVID-19 While That Person Was Ill? No [email or web address] Information not available 05/05/2024 Have You Been To An Area Known To Be High Risk For COVID-19? No [email or web address] Information not available 05/05/2024 Are You Deaf Or Do You Have Serious Difficulty Hearing? No Information not available 05/05/2024 What Type Of Diet Are You Following? REGULAR [email or web address] Information n ot available 05/05/2024 Have You Processed Blood Or Body Fluids From An Ebola Virus Disease Patient Without Appropriate PPE? No [email or web address] Information not available 05/05/2024 Do You Reside In Or Have You Traveled To An Area Where Ebola Virus Transmission Is Active? No [email or web address] Information not available 05/05/2024 Have There Been Any Changes To Your Family Or Social Situation? No [email or web address] Information no t available 05/05/2024 What Is The Fluoride Status Of Your Home? Unknown [email or web address] Information not available 05/05/2024 When Did You Quit Smoking? 1-5yearssince lastcigarette Information not available 12/29/2024 Are There Any Guns Present In Your Home? No [email or web address] Information not available 05/05/2024 Have You Recently Or Are You Planning To Travel To An Area With Zika Virus? No [email or web address] Information not available 05/05/2024 Do You Use Insect Repellent Routinely? Yes [email or web address] Information not available 05/05/2024 In General, Would [...] Bread, 1 Cup Of Whole-grain Or High-fiber Fepqe-ct-sna Cereal, 1 2 Cup Of Cooked Cereal Such As Oatmeal, Or 1 2 Cup Of Cooked Brown Rice Or Whole Wheat Pasta.) 1-2 Servings Per Day Information not available 05/27/2024 In The Past 7 Days, How Many Servings Of Fried Or High-fat Foods Did You Typically Eat Each Day? (Examples Include Fried Chicken, Fried Fish, [place], [place], Potato Chips, [place] Chips, Doughnuts, Creamy Salad Dressings, And Foods [...] Past 7 Days, How Often Have You [place] Sleepy During The Daytime? Rarely Information not [...] Do You Feel Safe At Home? Yes [email or web address] Information not available 05/05/2024 Do You Have A Medical Power Of Field Care Manager? No [email or web address] Information not available 05/05/2024 What Was The Date Of Your Most Recent Tobacco Screening? 05/20/2024 Information not available 05/20/2024 What Is Your Current Pack Years? 20-29packyear s Information not available 08/24/2022 Do You Have Any Pets? No Information not available 05/05/2024 What Is Your Relationship Status? Domestic Partner Information not available 05/27/2024 Do You Use Your Seat Belt Or Car Seat Routinely? Yes [email or web address] Information not available 05/05/2024 Are You Sexually Active? Yes Information not available 05/27/2024 Do You Have Smoke And Carbon Monoxide Detectors In Your Home? Yes [email or web address] Information not available 05/05/2024 Are You Passively Exposed To Smoke? No [email or web address] Information no t available 05/05/2024 How Much Tobacco Do You Smoke? 1 PPD Information not available 08/24/2022 Do You Use Sunscreen Routinely? Yes [email or web address] Information not available 05/05/2024 Has Tobacco Cessation Counseling Been Provided? Yes Information not available 08/24/2022 On What Date Was Tobacco Cessation Counseling Provided? 05/20/2024 [email or web address] Information not available 05/20/2024 Do You Have Difficulty Walking Or Climbing Stairs? No [email or web address] Information not available 05/05/2024 Are You Currently In School? No [email or web address] Information not available 05/05/2024 Sex: Unknown Functional [...] available 08/24/2022 Are you currently employed? No [email or web address] Information not available 05/05/2024 Do you have transportation difficulties? No [email or web address] Information not available 05/05/2024 Are you able to walk? YESWOREST [email or web address] Information not available 05/05/2024 Do you have difficulty doing errands alone? No [email or web address] Information not available 05/05/2024 Are you able to care for yourself? Yes Information not available 05/05/2024 Do you have difficulty dressing or bathing? No [email or web address] Information not available 05/05/2024 What is your exercise level? None [email or web address] Information not available 05/05/2024 Mental Status Question Answer Note LastModified by Organizat ion Details LastModified Time Do you feel stressed (tense, restless, nervous, or anxious, or unable to sleep at night)? [id number] Information not available 05/05/2024 Do you have difficulty concentrating, remembering or making decisions? No [email or web address] Information no t available 05/05/2024 Family History [...] available 2024 08:39:50 Medical History Condition Response None N Emphysema N Depression Y Glaucoma N Anesthesia Complications N Anxiety Disorder Y Arthritis N Hearing Loss N Acid Reflux (GERD) Y Cancer N Stroke N Fibromyalgia N Headaches N Speech Delay N Kidney Disease N Allergies/Hayfever N Heart Problems N Heart Conditions N Migraines N Thyroid Problems Y Developmental Delay N Anemia N Immune System Disorder N Heart Attack (AL) N Diabetes Y Bleeding Disorder N Tuberculosis N Hyperlipidemia Y Asthma Y Sleep Disorder N GERD/Reflux N Heart Disease N Hypertension N Gynecological History Statement/Question Response Current Control Method Hysterectom y Sexually Active? N Obstetrics History GPAL:G 0 P 0 0 0 0 Immunizations Vaccine Type Date Status Note Provider Nam e and Address Organization Details Recorded Time COVID-19 vaccine, vector-nr, rS-Ad26, PF, 0.5 mL 1 completed Not Available [facility] 01/02/2024 08:10:35 TST-PPD intradermal 2 completed Not Available [facility] 01/02/2024 08:10:35 COVID-19, mRNA, LNP-S, PF, 100 mcg/0.5mL dose or 50 mcg/0.25mL dose 2 completed Ronit Brittney null, [place] & [place] 02/24/2024 12:29:29 COVID-19 vaccine, vector-nr, rS-Ad26, PF, 0.5 mL 1 completed Ronit Villanueva null, [place] 02/24/2024 12:29:29 COVID-19, mRNA, LNP-S, bivalent, PF, 50 mcg/0.5 mL or 25mcg/0.25 mL dose 3 completed Ronit Villanueva null, [place] 02/24/2024 12:29:29 COVID-19, mRNA, LNP-S, PF, 50 mcg/0.5 mL 3 completed Ronit Brittney null, [place] 02/24/2024 12:29:29 Past Encounters Encounter ID Performer Location Encounter Start Date Encounter Closed Date Diagnosis/Indication Diagnosis SNOMED-CT Code Diagnosis ICD10 Code Diagnosis Note [id number] Henna Griffin NP [address],[place] [address] 04/01/2025 10:39:31 04/01/2025 11:19:03 Gastro-esophageal reflux disease with esophagitis 756432551 K21.00 Continues pantoprazo le 40 mg daily for treatment. Recently experienci ng increased dyspepsia and belching. Recommend continued use of PPI as prescribed as well as reflux precaution s. Plan for EGD to further evaluate. Chronic id iopathic constipation 63815034 K59.04 Currently controlled with use of MiraLax and stool softeners. Nausea 057496657 R11.0 daily episodes of nausea and dyspepsia for the past several weeks. She is currently prescribed NSAIDs for arthritis. Recommend EGD to evaluate for erosive gastritis, PUD, other. Burping 219851516 R14.2 Increased belching and dyspepsia over the past several weeks. Recommend continued use of PPI as prescribed . Plan for EGD as above to further evaluate. Blood-tinged feces 38926 96358 49542 K92.1 Episodes of hematochez ia that occurred several weeks ago. Currently denies symptoms. Recommend colonoscop y to further evaluate to rule out underlying colon polyps, lesions, internal hemorrhoid s. Last colonoscop y 02/2018. Family his tory of cancer of colon 083692739 Z80.0 Patient's father with history colon cancer. Plan for colonoscop y as above. Health Concerns Section Related Observation LastModified by Organization Detai ls LastModified Time None Recorded Concern Status LastModified by Organization Details LastModified Time None Recorded Payers Encounter Date Sequence Insurance Name Policy Number Policy Reyes Covered Member ID Reyes Member ID Guarantor Name 04/01/2025 2 [place] [employer] - FFS/TRADITIO NAL Roberto Rolon [id number] Roberto Moctezuma 04/01/2025 1 [employer] (MEDICARE REPLACEMENT/ ADVANTAGE - PPO) Roberto Moctezuma [id number] Roberto Moctezuma Notes Date Note Type Note Provider Name and Address Organization Details Recorded Time 04/01/2025 text/html Patient returns to clinic today for follow up. She continues Pantoprazole for treatment of GERD. She has been experiencing daily episodes of nausea and dyspepsia as well as increased belching after meals. She is prescribed NSAIDS for treatment of arthritis. She continues miralax and stool softeners with controlled constipation. She had some episodes of hematochezia several weeks ago which have since resolved. Patient's father with history of colon cancer. Henna Griffin NP [address] [place] [address], [address], [place], [address], [facility] - [facility] & [place] 04/01/2025 13:09:48 OBGyn Episode No OBEpisode recorded.
--- OUTSIDE RECORDS SUMMARY | 2025-05-04 11:02 | XMS_ITS | Clinical Summary ---
Author Organization Healthcare Address [address] [place] [address] Care Team Providers Care Wealth Management Consultant Name Role Phone Arline Roberts Primary Care Provider [phone] Encounters Date Type Department Care Team Description 03/25/2025 [facility] [address] [id number] Dental, Surgeon, from Last 3 Months Family History Medical History Relation Name Comments Hypertension Other Rheum arthritis Paternal Grandfather Relation Name Status Comments Other Paternal Grandfather Social History Tobacco Use Types Packs/Day Years Used Date Smoking Tobacco: Every Day Alcohol Use Standard Drinks/Week Comments No 0 (1 standard drink = 0.6 oz pur e alcohol) Comments Unknown Sex and Gender Information Value Date Recorded Sex Assigned at Not on file Legal Sex Female 8:36 PM EDT Gender Identity Not on file Sexual Orientation Not on file Last Filed Vital Signs Vital Sign Reading Time Taken Comments Blood Pressure 147/85 04/16/2020 9:59 AM EDT Pulse 86 04/16/2020 9:59 AM EDT Temperature 36.6 C (97.9 F) 04/16/2020 9:59 AM EDT Respiratory Rate 16 08/20/2019 2:56 PM EDT Oxygen Saturation - - Inhaled Oxygen Concentration - - Weight 76.3 kg (168 lb 2 oz) 04/16/2020 9:59 AM EDT Height 154.9 cm (5' 1 ) 04/16/2020 9:59 AM EDT Body Mass Index 31.77 04/16/2020 9:59 AM EDT Plan of Treatment Health Maintenance Due Date Last Done Comments [facility]-Depression Screening 1969 [facility]-HIV Screening 1969 [facility]-Hepatitis C Screening 1969 [facility]-Medicare Annual Wellness (AWV) 1969 [facility]-Infant/Child/Adol SDOH Screenings 1969 [facility]- SDOH Screenings 1987 [facility]-Adult SDOH Screenings 1987 [facility]-DTaP,Tdap,and Td Vaccines (1 - Tdap) 1988 [facility]-Hepatitis B Vaccines (1 of 3 - 19+ 3-dose series) 1988 CT Colonography 2014 Colonoscopy 2014 FIT-DNA 2014 FIT 2014 FOBT 2014 Sigmoidoscopy 2014 [facility]-Colorectal Cancer Screening 2014 [facility]-Breast Cancer Screening 2019 [facility]-Zoster Vaccines (1 of 2) 2019 [facility]-Influenza Vaccine (Season Ended) 2025 [id number] Vaccine Completed 07/25/2024, 10/25/2023, 05/11/2023, Additional history exists [facility]-Pneumococcal Vaccine: 50+ Years Completed 07/25/2024 HPV Vaccines Aged Out No longer eligi ble based on patient's age to complete this topic [facility]-HIB Vaccines Aged Out No longer e ligible based on patient's age to complete this topic [facility]-Hepatitis A Vaccines Aged Out No longer eligible based on patient's age to complete this topic [facility]-IPV Vaccines Aged Out No longer e ligible based on patient's age to complete this topic [facility]-Rotavirus Vaccines Aged Out No lo nger eligible based on patient's age to complete this topic Insurance [facility] MEDICARE Care Teams Wealth Management Consultant Relationship Specialty Start Date End Date Arline Roberts PA [address] [place] [address] [place] [address] PCP - General 04/08/21
--- OUTSIDE RECORDS SUMMARY | 2025-05-04 11:03 | XMS_ITS | Data Portability ---
Author Organization [place] - [facility] ADMIN Address [address] [place] [id number] Care Team Providers Care Scroll Shear Operator Name Role Phone HENNA GRIFFIN Senior Embedded Software Engineer NARA JOHNSON Primary Care Provider Assessment No assessment recorded. Plan of Treatment Reminders Order Date Submit Date Provider Last Modified By Organization Details Last Modified Time Details Appointments OV EST 15 2024 09:30A M Nara Johnson MD Not available Not available Not available OV EST 15 2024 01:15P M Fransisco Page M.D Not available Not available Not available PROC 30 2024 07:30A M Edvin Jarrell M.D Not available Not available Not available OV EST 15 2024 02:15P M Henna Griffin NP Not available Not available Not available Lab cultur e, urine 2024 025 [facility] (Laboratory), [address] , [place], [address], 02/03/2025 07:19:48 Referral pulmon elizabeth rehab referr al 2024 025 [facility], [address], [place], [address], 04/30/2025 15:30:27 urolog ist referr al 2024 025 erick Colon MD, [address], [address], [place], [address], 03/16/2025 08:40:17 Procedures upper endosc opy proced ure (EGD) (PROC) 2024 025 [facility] (Central Scheduling), [address] [place] [address] [place], [address], 04/29/2025 12:53:29 colono scopy proced ure (PROC) 2024 025 [facility] (Central Scheduling), [address] [place] [address] [place], [address], 04/08/2025 07:56:30 Surgeries None record ed. Imaging XR, chest, 2 view 2024 025 [facility] (Scheduling), [address] [place], [address], 05/01/2025 08:40:43 XR, chest, 2 view 2024 025 [facility] (Scheduling), [address] [place], [address], 04/13/2025 12:44:29 Medication Orders Reglan 10 mg tablet 2024 025 [facility] #49931, [address] [place], [place], [id number], 04/30/2025 18:01:56 levofl oxacin 750 mg tablet 2024 025 [facility] #01658, [address] [place], [id number], 04/30/2025 14:40:30 ipratr opium 0.5 mg-alb uterol 3 mg (2.5 mg base)/ 3 mL nebuli zation soln 2024 025 [facility] #36907, [address] [place], [place], [id number], 04/30/2025 14:41:23 Ozempi c 2 mg/dos e (8 mg/3 mL) subcut aneous pen inject or 2024 025 [facility] #77039, [address] , [place], [place], [id number], 04/13/2025 10:23:24 alpraz olam 0.5 mg tablet 2024 025 [facility] #48052, [address] , [place], [id number], 04/13/2025 10:20:56 Mirala x 17 gram/d ose oral powder 2024 025 [facility] #02489, [address] , [place], [place], [id number], 04/13/2025 09:05:37 Dulcol ax (bisac odyl) 5 mg tablet ,delay ed releas e 2024 025 [facility] #14985, [address], [place], [place], [id number], 04/13/2025 09:05:32 triamc inolon e aceton jayy 40 mg/mL suspen carmen for inject ion 2024 025 [facility] Not available 04/01/2025 11:07:29 dexame thason e sodium phosph ate 4 mg/mL inject ion soluti on 2024 025 [facility] Not available 04/01/2025 11:06:25 Patient TargetsNo targets recorded. Patient Instructions Encounter Date Encounter Id Patient Instructions Last Modified By Organization Details Last Modified Time 04/30/2025 [id number] complete PFT w/ post bronchodilator spirometry* ATHENAFAX Not available 04/30/2025 15:30:30 Reason for Referral Urologist Referral for Mixed urinary incontinence Referring Physician: Nara Johnson Family Medicine, Encounter Date: 02/16/2025 Pulmonary Rehab Referral for History of pneumonia Referring Physician: Family Leonie Medicine, Encounter Date: 04/30/2025 Results Created Date Observation Date Name Description Value Unit Range Abnormal Flag Note LastModifiedBy Organization Detail LastModifiedTime 01/12/20 25 01/12/2025 CBC AUTO W DIFF WBC 13.4 10 4.5-11 .5 high Not Available [facility] (Lab Registration) [address] [place], [address], 01/12/2025 16:50:07 01/12/20 25 01/12/2025 CBC AUTO W DIFF RBC 4.56 10 4.25-5 .57 Not Available [facility] (Lab Registration) [address] [place], [address], 01/12/2025 16:50:07 01/12/20 25 01/12/2025 CBC AUTO W DIFF HGB 12.7 g/dL 12.0-1 5.7 Not Available [facility] (Lab Registration) [address] [place], [address], 01/12/2025 16:50:07 01/12/20 25 01/12/2025 CBC AUTO W DIFF HCT 39.6 % 36.0-4 7.0 Not Available [facility] (Lab Registration) [address] [place], [address], 01/12/2025 16:50:07 01/12/20 25 01/12/2025 CBC AUTO W DIFF MCV 86.8 fL 80-95 Not Available [facility] (Lab Registration) [address] [place], [address], 01/12/2025 16:50:07 01/12/20 25 01/12/2025 CBC AUTO W DIFF MCH 27.9 pg 27.0-3 4.0 Not Available [facility] (Lab Registration) [address] [place], [address], 01/12/2025 16:50:07 01/12/20 25 01/12/2025 CBC AUTO W DIFF MCHC 32.1 g/dL 32.0-3 6.0 Not Available [facility] (Lab Registration) [address] [place], [address], 01/12/2025 16:50:07 01/12/20 25 01/12/2025 CBC AUTO W DIFF platelet count 265 10 150-45 0 Not Available [facility] (Lab Registration) [address] [place], [address], 01/12/2025 16:50:07 01/12/20 25 01/12/2025 CBC AUTO W DIFF RDW 14.5 % 12.3-1 5.1 Not Available [facility] (Lab Registration) [address] [place], [address], 01/12/2025 16:50:07 01/12/20 25 01/12/2025 CBC AUTO W DIFF MPV 11.5 fL 7.4-10 .4 high Not Available [facility] (Lab Registration) [address] [place], [address], 01/12/2025 16:50:07 01/12/20 25 01/12/2025 CBC AUTO W DIFF granulocyte% 68.2 % 40-75 Not Available [facility] (Lab Registration) [address] [place], [address], 01/12/2025 16:50:07 01/12/20 25 01/12/2025 CBC AUTO W DIFF lymphocyte% 21.6 % 15-57 Not Available [facility] (Lab Registration) [address] [place], [address], 01/12/2025 16:50:07 01/12/20 25 01/12/2025 CBC AUTO W DIFF monocyte% 7.0 % 4.0-12 .0 Not Available [facility] (Lab Registration) [address] [place], [address], 01/12/2025 16:50:07 01/12/20 25 01/12/2025 CBC AUTO W DIFF eosinophil% 1.8 % 0.0-4. 0 Not Available [facility] (Lab Registration) [address] [place], [address], 01/12/2025 16:50:07 01/12/20 25 01/12/2025 CBC AUTO W DIFF basophil% 0.4 % 0.0-1. 0 Not Available [facility] (Lab Registration) [address] [place], [address], 01/12/2025 16:50:07 01/12/20 25 01/12/2025 CBC AUTO W DIFF immature granulocytes % 1.0 % 0.0-0. 8 high Not Available [facility] (Lab Registration) [address] [place], [address], 01/12/2025 16:50:07 01/12/20 25 01/12/2025 CBC AUTO W DIFF granulocyte# 9.14 10 Not Available [facility] (Lab Registration) [address] [place], [address], 01/12/2025 16:50:07 01/12/20 25 01/12/2025 CBC AUTO W DIFF lymphocyte# 2.89 10 Not Available [facility] (Lab Registration) [address] [place], [address], 01/12/2025 16:50:07 01/12/20 25 01/12/2025 CBC AUTO W DIFF monocyte# 0.94 10 Not Available [facility] (Lab Registration) [address] [place], [address], 01/12/2025 16:50:07 01/12/20 25 01/12/2025 CBC AUTO W DIFF eosinophil# 0.24 10 Not Available [facility] (Lab Registration) [address] [place], [address], 01/12/2025 16:50:07 01/12/20 25 01/12/2025 CBC AUTO W DIFF basophil# 0.06 10 Not Available [facility] (Lab Registration) [address] [place], [address], 01/12/2025 16:50:07 01/12/20 25 01/12/2025 CBC AUTO W DIFF immature granulocytes # 0.13 10 Not Available [facility] (Lab Registration) [address] [place], [address], 01/12/2025 16:50:07 01/12/20 25 01/12/2025 CBC AUTO W DIFF manual differential NO Not Available [facility] (Lab Registration) [address] [place], [address], 01/12/2025 16:50:07 01/12/20 25 01/12/2025 CBC AUTO W DIFF note Unles s other mayo noted testi ng perfo rmed at: [facility] [address] [place] [address] [phone] Tra mariscal MD CLIA: [id number] Not Available [facility] (Lab Registration) [address] [place], [address], 01/12/2025 16:50:07 01/12/20 25 01/12/2025 HEMOG LOBIN A1C glycosylated hemoglobin A1C 5.3 % 4.5-6. 2 Not Available [facility] (Lab Registration) [address] [place], [address], 01/12/2025 16:53:17 01/12/20 25 01/12/2025 HEMOG LOBIN A1C estimated average glucose 105 mg/dL 82-131 Not Available [facility] (Lab Registration) [address] [place], [address], 01/12/2025 16:53:17 01/12/20 25 01/12/2025 HEMOG LOBIN A1C note Unles s other mayo noted testi ng perfo rmed at: [facility] [address] [place] [address] [phone] Tra mariscal MD CLIA: [id number] Not Available [facility] (Lab Registration) [address], [place], [address], 01/12/2025 16:53:17 01/12/20 25 01/12/2025 THYRO ID STIMU LATIN G HORMO NE thyroid stimulating hormone 2.18 mIU/m L 0.34-4 .80 Not Available [facility] (Lab Registration) [address], [place], [address], 01/12/2025 17:05:18 01/12/20 25 01/12/2025 THYRO ID STIMU LATIN G HORMO NE note Unles s other mayo noted testi ng perfo rmed at: [facility] [address] [place] [address] [phone] Tra mariscal MD CLIA: [id number] Not Available [facility] (Lab Registration) [address], [place], [address], 01/12/2025 17:05:18 01/12/20 25 01/12/2025 COMP METAB OLIC PANEL sodium 141 mmol/ L 136-14 5 Not Available [facility] (Lab Registration) [address] [place], [address], 01/12/2025 17:05:20 01/12/20 25 01/12/2025 COMP METAB OLIC PANEL potassium 3.8 mmol/ L 3.5-5. 1 Not Available [facility] (Lab Registration) [address] [place], [address], 01/12/2025 17:05:20 01/12/20 25 01/12/2025 COMP METAB OLIC PANEL chloride 103 mmol/ L 98-107 Not Available [facility] (Lab Registration) [address] [place], [address], 01/12/2025 17:05:20 01/12/20 25 01/12/2025 COMP METAB OLIC PANEL carbon dioxide 29 mmol/ L 21-32 Not Available [facility] (Lab Registration) [address], [place], [address], 01/12/2025 17:05:20 01/12/20 25 01/12/2025 COMP METAB OLIC PANEL anion gap 9.0 Not Available [facility] (Lab Registration) [address], [place], [address], 01/12/2025 17:05:20 01/12/20 25 01/12/2025 COMP METAB OLIC PANEL glucose 224 mg/dL 70-110 high Not Available [facility] (Lab Registration) [address] [place], [address], 01/12/2025 17:05:20 01/12/20 25 01/12/2025 COMP METAB OLIC PANEL blood urea nitrogen 12 mg/dL 7-18 Not Available [facility] (Lab Registration) [address] [place], [address], 01/12/2025 17:05:20 01/12/20 25 01/12/2025 COMP METAB OLIC PANEL creatinine 1.0 mg/dL 0.6-1. 0 Not Available [facility] (Lab Registration) [address] [place], [address], 01/12/2025 17:05:20 01/12/20 25 01/12/2025 COMP METAB OLIC PANEL BUN/creatini ne ratio 12.0 9-21 Not Available [facility] (Lab Registration) [address] [place], [address], 01/12/2025 17:05:20 01/12/20 25 01/12/2025 COMP METAB OLIC PANEL estimated glom filtration rate 66 mL/mi n >60- GFR LIMIT ATION : The eGFR equat ion CKD-E PI 2020 is not appli cable for pedia tric patie nts or great er than 90 years of age. The follo wing condi tions may alter the GFR resul t: extre mes in body size, malnu triti on or obesi ty, skele sully muscl e disea se, parap legia or quadr ipleg ia, veget london diet or rapid ly jules ing kiney funct ion. Not Available [facility] (Lab Registration) [address], [place], [address], 01/12/2025 17:05:20 01/12/20 25 01/12/2025 COMP METAB OLIC PANEL total protein 6.3 g/dL 6.4-8. 2 low Not Available [facility] (Lab Registration) [address] [place], [address], 01/12/2025 17:05:20 01/12/20 25 01/12/2025 COMP METAB OLIC PANEL albumin 3.4 g/dL 3.4-5. 0 Not Available [facility] (Lab Registration) [address] [place], [address], 01/12/2025 17:05:20 01/12/20 25 01/12/2025 COMP METAB OLIC PANEL calcium 9.0 mg/dL 8.5-10 .1 Not Available [facility] (Lab Registration) [address] [place], [address], 01/12/2025 17:05:20 01/12/20 25 01/12/2025 COMP METAB OLIC PANEL corrected calcium 9.5 mg/dL 8.5-10 .1 Not Available [facility] (Lab Registration) [address] [place], [address], 01/12/2025 17:05:20 01/12/20 25 01/12/2025 COMP METAB OLIC PANEL bilirubin total 0.2 mg/dL 0.4-1. 5 low Not Available [facility] (Lab Registration) [address] [place], [address], 01/12/2025 17:05:20 01/12/20 25 01/12/2025 COMP METAB OLIC PANEL AST (SGOT) 22 U/L 15-37 Not Available [facility] (Lab Registration) [address] [place], [address], 01/12/2025 17:05:20 01/12/20 25 01/12/2025 COMP METAB OLIC PANEL ALT (SGPT) 33 U/L 12-78 Not Available [facility] (Lab Registration) [address] [place], [address], 01/12/2025 17:05:20 01/12/20 25 01/12/2025 COMP METAB OLIC PANEL alk phosphatase 140 U/L 50-120 high Not Available [facility] (Lab Registration) [address] [place], [address], 01/12/2025 17:05:20 01/12/20 25 01/12/2025 COMP METAB OLIC PANEL note Unles s other mayo noted testi ng perfo rmed at: [facility] [address] [place] [address] [phone] Tra mariscal MD CLIA: [id number] Not Available [facility] (Lab Registration) [address] [place], [address], 01/12/2025 17:05:20 01/12/20 25 01/12/2025 LIPID PANEL triglyceride 372 mg/dL 20-200 high The Natio nal Mattie stero l Educa tion Progr am (NCEP ) has set the follo wing guide lines for Fasti ng Trigl yceri jeni: JESSICA L: <150 mg/dL BORDE RLINE HIGH: 150 - 199 mg/dL HIGH: 200 - 499 mg/dL VERY HIGH: > or =500 mg/dL Not Available [facility] (Lab Registration) [address] [place], [address], 01/12/2025 17:05:22 01/12/20 25 01/12/2025 LIPID PANEL cholesterol 225 mg/dL 0-200 high The Natio nal Mattie stero l Educa tion Progr am (NCEP ) has set the follo wing guide lines for Fasti ng Mattie stero l: NÉSTOR ABLE: <200 mg/dL BORDE RLINE HIGH: 200 - 239 mg/dL HIGH: > or =240 mg/dL Not Available [facility] (Lab Registration) [address], [place], [address], 01/12/2025 17:05:22 01/12/20 25 01/12/2025 LIPID PANEL HDL cholesterol 46 mg/dL 60- low The Natio nal Mattie stero l Educa tion Progr am ([facility] ) has set the follo wing guide lines for Fasti ng HDL Mattie stero l: LOW HDL: <40 mg/dL JESSICA L: 40 - 60 mg/dL NÉSTOR ABLE: >60 mg/dL Not Available [facility] (Lab Registration) [address], [place], [address], 01/12/2025 17:05:22 01/12/20 25 01/12/2025 LIPID PANEL LDL calculated 105 mg/dL 100- The Natio nal Mattie stero l Educa tion Progr am ([facility] ) has set the follo wing guide lines for Fasti ng LDL Mattie stero l: OPTIM AL: < 100 mg/dL LOW RISK: 100 - 129 mg/dL BORDE RLINE HIGH: 130 - 159 mg/dL HIGH: 160 - 189 mg/dL VERY HIGH: > or = 190 mg/dL Not Available [facility] (Lab Registration) [address], [place], [address], 01/12/2025 17:05:22 01/12/20 25 01/12/2025 LIPID PANEL chol/HDL ratio 5 -5 Not Available [facility] (Lab Registration) [address], [place], [address], 01/12/2025 17:05:22 01/12/20 25 01/12/2025 LIPID PANEL note Unles s other mayo noted testi ng perfo rmed at: [facility] [address] [place] [address] [phone] Tra mariscal MD CLIA: [id number] Not Available [facility] (Lab Registration) [address], [place], [address], 01/12/2025 17:05:22 01/12/20 25 01/12/2025 MICRO ALBUM IN/CR EATIN INE URINE microalbumin random 1.9 mcg/m L 1.3-17 .0 Not Available [facility] (Lab Registration) [address], [place], [address], 01/12/2025 17:16:05 01/12/20 25 01/12/2025 MICRO ALBUM IN/CR EATIN INE URINE creatinine urine 54.4 mg/dL 30-125 Not Available [facility] (Lab Registration) [address] [place], [address], 01/12/2025 17:16:05 01/12/20 25 01/12/2025 MICRO ALBUM IN/CR EATIN INE URINE microalbumin /creatinine ratio 0.0 ug/mg _crea t 0.0-30 .0 Not Available [facility] (Lab Registration) [address], [place], [address], 01/12/2025 17:16:05 01/12/20 25 01/12/2025 MICRO ALBUM IN/CR EATIN INE URINE note Unles s other mayo noted testi ng perfo rmed at: [facility] [address] [place] [address] [phone] Tra mariscal MD CLIA: [id number] Not Available [facility] (Lab Registration) [address] [place], [address], 01/12/2025 17:16:05 01/12/20 25 01/12/2025 UA AND MICRO /CULT IF INDIC ATED color YELLOW yellow Not Available [facility] (Lab Registration) [address] [place], [address], 01/12/2025 18:08:45 01/12/20 25 01/12/2025 UA AND MICRO /CULT IF INDIC ATED appearance CLEAR clear Not Available [facility] (Lab Registration) [address] [place], [address], 01/12/2025 18:08:45 01/12/20 25 01/12/2025 UA AND MICRO /CULT IF INDIC ATED glucose NORM normal Not Available [facility] (Lab Registration) [address] [place], [address], 01/12/2025 18:08:45 01/12/20 25 01/12/2025 UA AND MICRO /CULT IF INDIC ATED bilirubin NEGATI VE negati ve Not Available [facility] (Lab Registration) [address] [place], [address], 01/12/2025 18:08:45 01/12/20 25 01/12/2025 UA AND MICRO /CULT IF INDIC ATED ketone NEGATI VE mg/dL negati ve Not Available [facility] (Lab Registration) [address] [place], [address], 01/12/2025 18:08:45 01/12/20 25 01/12/2025 UA AND MICRO /CULT IF INDIC ATED specific gravity 1.015 1.005- 1.035 Not Available [facility] (Lab Registration) [address] [place], [address], 01/12/2025 18:08:45 01/12/20 25 01/12/2025 UA AND MICRO /CULT IF INDIC ATED blood NEGATI VE /mcL negati ve Not Available [facility] (Lab Registration) [address] [place], [address], 01/12/2025 18:08:45 01/12/20 25 01/12/2025 UA AND MICRO /CULT IF INDIC ATED pH 6.50 5.0-7. 5 Not Available [facility] (Lab Registration) [address] [place], [address], 01/12/2025 18:08:45 01/12/20 25 01/12/2025 UA AND MICRO /CULT IF INDIC ATED protein 15 (TRACE ) mg/dL negati ve Not Available [facility] (Lab Registration) [address], [place], [address], 01/12/2025 18:08:45 01/12/20 25 01/12/2025 UA AND MICRO /CULT IF INDIC ATED urobilnogen NORM mg/dL normal Not Available [facility] (Lab Registration) [address] [place], [address], 01/12/2025 18:08:45 01/12/20 25 01/12/2025 UA AND MICRO /CULT IF INDIC ATED nitrite NEGATI VE negati ve Not Available [facility] (Lab Registration) [address] [place], [address], 01/12/2025 18:08:45 01/12/20 25 01/12/2025 UA AND MICRO /CULT IF INDIC ATED leukocyte esterase NEGATI VE /mcL negati ve Not Available [facility] (Lab Registration) [address] [place], [address], 01/12/2025 18:08:45 01/12/20 25 01/12/2025 UA AND MICRO /CULT IF INDIC ATED culture? NOT REQUIR ED Not Available [facility] (Lab Registration) [address] [place], [address], 01/12/2025 18:08:45 01/12/20 25 01/12/2025 UA AND MICRO /CULT IF INDIC ATED urine microscopic NO Not Available [facility] (Lab Registration) [address] [place], [address], 01/12/2025 18:08:45 01/12/20 25 01/12/2025 UA AND MICRO /CULT IF INDIC ATED note Unles s other mayo noted testi ng perfo rmed at: [facility] [address] [place] [address] [phone] Tra mariscal MD CLIA: [id number] Not Available [facility] (Lab Registration) [address] , [place], [address], 01/12/2025 18:08:45 02/03/20 25 02/02/2025 CULTU RE URINE results [facility] 02-03 718 No Signi figan t Growt h at Day 1 B 02-04 722 No Signi fican t Growt h at Day 2 Not Available [facility] (Lab Registration) [address], [place], [address], 02/04/2025 07:25:09 02/03/20 25 02/02/2025 CULTU RE URINE note Unles s other mayo noted testi ng perfo rmed at: [facility] [address] [place] [address] [phone] Tra mariscal MD CLIA: [id number] Not Available [facility] (Lab Registration) [address], [place], [address], 02/04/2025 07:25:09 01/23/20 25 01/23/2025 imagi ng inter preta tion No observ ation [facility] ed. [facility] [address], [place], [address], 01/26/2025 07:41:42 04/03/20 25 04/03/2025 CT, chest , w/o contr ast [facility] [address] [place] [address] [phone] (Phone ) PAU Rodriguez REPORT Name: CORETTA MOCTEZUMA : 1969 Accoun t #: [id number] Age: 55 Years Patien t Type: Outpat ient Sex: F Access ion#: [id number] Exam Descri ption: CT CHEST WO Exam Reason : r91.1 solita ry pulmon elizabeth nodule Order Date/T jamie: 2024 10:05: 21 AM Dictat ed By: Alejandrina Todd MD Orderi ng Physic lg: DILCIA BUTLER, YOUSOF Attend ing Physic lg: DILCIA ED, [...] . No PAGE 1 OF 2 Name: CORETTA MOCTEZUMA : 1969 Accoun t #: [id number] 1 Age: 55 Years Patien t Type: Outpat ient Sex: F Access ion#: [id number] Exam Descri ption: CT CHEST WO [...] which is normal in calibe r. IMPRES CARMEN: 1. Resolu tion of the 8 mm [...] 2HQW Princi pal Interp reter Name: Alejandrina Mccoy er ID: [id number] PAGE 2 OF 2 CC'ed Logic: Orderi ng Provid er: ELGARI ED YOUSOF CC Provid er: ALEX SCOTTKhushboo HEBERT Attend ing Provid er: ELGARI ED YOUSOF Referr ing Provid er: ELGARI ED YOUSOF Admitt ing [facility]id [facility] YOUSOF [id number] [facility] (Central Scheduling) [address] [place] [address] [place], [address], 04/06/2025 10:56:17 04/03/20 25 04/03/2025 imagi ng inter preta tion No observ ation record ed. tpardini [facility] (Registration ) [address] [place] [address] [place], [address], 04/06/2025 07:57:34 04/13/20 25 04/13/2025 XR, chest , 2 view [facility] [address] [place] [address] Phone: Fax: Name: CORETTA MOCTEZUMA Exam Date: : [birth year] Age 55 years Gender : F Access ion: [id number] Physic lg: JOSEPHJag KAREEM HEBERT Facili ty: [facility] Facili ty HSV: Outpat ient Exam: [...] mild peribr onchia l thicke yanick. IMPRES CARMEN: Mild basal pneumo deborah left greate r than right. Electr onical ly signed by: Alejandrina Todd MD 2024 12:37 PM EDT RP Workst ation: [id number] Dictat ed By: ALEJANDRINA TODD Transc ribed By: Transc ribed On: 025 10:14 AM Electr onical ly signed by: ALEJANDRINA TODD 025 Thank you for referr ing CORETTA MOCTEZUMA to [facility] Hospit [facility]. Legall y authen ticate d by AMADA TINOCO MD 04-13 10:14: 40 CC'ed Logic: Orderi ng Provid er: ALEX LEEGEORGE NDE CC Provid er: ALEX LEEBRYANU NDE Attend ing Provid er: ALEX SONIAU NDE Referr ing Provid er: ALEX SCOTTU NDE Admitt ing Provid er: ALEX LEEATU NDE [facility] (Radiology) [address] [place], [address], 04/13/2025 13:55:00 05/01/20 25 04/30/2025 XR, chest , 2 view [facility] [address] [facility] [place] [address] Phone: Fax: Name: CORETTA MOCTEZUMA Exam Date: 04/30/20 : [birth year] Age 55 years Gender : F Access ion: [id number] Physic lg: KAREEM JOHNSON EMILEE Facili ty: [facility] Facili ty HSV: Outpat ient Exam: CHEST PA ^ LAT EXAMIN ATION: TWO VIEW CHEST XR CLINIC AL INDICA TION: Female , 55 years old. HISTOR Y OF PNEUMO DEBORAH. TECHNI QUE: 2 View, PA and latera l, X-ray of the chest was perfor med. [id number] . COMPAR HAILEY: No prior exam. FINDIN GS: Unchan ged calcif ied granul ngozi at the left base. Normal heart and pulmon elizabeth vascul arity. Neithe r costop hrenic angle is blunte d. IMPRES CARMEN: Stable calcif ied granul ngozi on the left. No new abnorm al findin gs. Electr onical ly signed by: Patrick vega MD 2024 08:35 AM EDT RP Workst ation: [id number] Dictat ed By: PATRICK BEAR Transc ribed By: Transc ribed On: 04/30/20 3:23 PM Electr onical ly signed by: PATRICK BEAR 04/30/20 Thank you for referr CORETTA Tapia to [facility]. Legall y authen ticate d by ROSIBEL DE LUNA MD 04-30 15:23: 14 CC'ed Logic: Orderi ng Provid er: SOKAJag BABATU NDE CC Provid er: SOKAN BABATU NDE Attend ing Provid er: SOKAN BABATU NDE Referr ing Provid er: SOKAN BABATU NDE Admitt ing Provid er: SOALEKSANDRAJag LEEATU [facility] [address] [place] [address] , [place], [address], 05/03/2025 09:17:32 Result Notes None recorded. Problems Name Problem SNOMED Code Status Onset Date Resolution Date Notes Provider Name and Address Organization Details Recorded Time Blood-ting ed feces 7577187559733 02 Active 2024 Henna Griffin NP [address], [address], [place], [address] , [facility] & [place] 5 11:20:19 Abdominal pain 39603091 Active 2021 Not Available [facility] 4 08:10:34 Osteoarthr itis 143921505 Active 2021 Not Available [facility] 4 08:10:34 Tobacco user 061348016 Active 2021 Not Available [facility] 4 08:10:34 Chronic constipati on 180277422 Active 2021 Not Available [facility] 4 08:10:34 Irritable bowel syndrome 23219912 Active 2021 Not Available [facility] 4 08:10:34 Chronic obstructiv e pulmonary disease 19248053 Active 2021 Not Available [facility] 4 08:10:34 Chronic pain syndrome 069849352 Active 2021 Not Available [facility] 4 08:10:34 Asthma 219898068 Active 2021 Not Available [facility] 4 08:10:34 Neuropathy 090612675 Active 2021 Not Available [facility] 4 08:10:34 Mixed anxiety and depressive disorder 191696465 Active 2021 Not Available [facility] 4 08:10:34 Well controlled type 2 diabetes mellitus 618892172 Active Stephan Santacruz null, [place] [facility] & [place] 4 08:44:51 Dyspnea 199462482 Active Stephan Santacruz null, [place] & [place] 4 08:44:31 Insect sting 417955667 Active Stephan Santacruz null, [place] [facility] - [facility] & [place] 4 08:45:49 Lower abdominal pain 46661421 Active Stephan Santacruz [place] [facility] & [place] 4 08:45:40 Exacerbati on of moderate persistent asthma 168732513 Active Stephan Santac[place] [facility] [facility] & [place] 4 08:44:48 Burping 821877987 Active Henna Griffin NP [address], [address], [place], [address] [facility] [place] [facility] - [facility] & [place] 5 11:20:12 Tobacco dependence caused by cigarettes 8639673261503 9107 Active Stephan Santacruz [place] [facility] [facility] & [place] 4 08:44:55 Finding of tobacco use and exposure 168013138 Active Stephan Santacruz [place] & [place] 4 08:46:08 Clostridio ides difficile infection 631753023 Active Stephan Santacruz [place] [facility] [facility] & [place] 4 08:43:49 Swollen abdomen 18688023 Active Stephan Santacruz [place] & [place] 4 08:44:57 Irritable bowel syndrome characteri zed by constipati on 269724846 Active Stephan Santacruz [place] & [place] 4 08:45:43 Esophageal dysphagia 09766619 Active Stephan Santac[place] & [place] 4 08:44:40 Fall Active Stephan Santac[place] & [place] 4 08:46:20 Finding of gastrointe stinal tract gas 255302151 Active Stephan Santacruz [place], [place] & [place] 4 08:46:12 Chronic pain 04910153 Active Stephan Santacruz [place] & [place] 4 08:43:44 Gastritis 8760795 Active Stephan Santac[place] & [place] 4 08:46:05 Alteration in bowel eliminatio n 347600745 Active Stephan Santacruz [place] & [place] 4 08:43:22 Generalize d abdominal pain 652823418 Active Stephan Santacruz [place] & [place] 4 08:46:26 Acute back pain with sciatica 487276948 Active Stephan Santacruz [place], [place] & [place] 4 08:43:13 Idiopathic peripheral autonomic neuropathy 16718803 Active Stephan Santacruz null, [place] & [place] 4 08:46:40 Pneumonia 520205379 Active Stephan Santac[place] & [place] 4 08:45:02 Pain of multiple joints 34988188 Active Stephan Santac[place] & [place] 4 08:45:18 Abdominal bloating 213617475 Active Stephan Santac[place] & [place] 4 08:43:10 Chest pain 71563159 Active Stephan Santac[place] & [place] 4 08:43:37 Chronic idiopathic constipati on 49252693 Active Stephan Santacruz [place] & [place] 4 08:43:41 Moderate persistent asthma 166184838 Active [place] [facility] - [facility] & [place] 4 08:45:21 Exogenous hyperlipid emia 299753433 Active Stephan Santacruz null, [place] [facility] - [facility] & [place] 4 08:46:23 Allergic rhinitis 40269554 Active [place] [facility] - [facility] & [place] 4 08:43:17 History of drug abuse 201371139 Active Stephan Santacruz nullELIA LPNT - [facility] & [place] 4 08:46:29 Gastro-eso phageal reflux disease with esophagiti s 390403804 Active Stephan Santacruz [place] - [place] & [place] 4 08:46:01 Injury of nose 53560897 Active [place] [facility] - [place] & [place] 4 08:45:53 Disturbanc e in sleep behavior 27194623 Active [place] [facility] - [facility] & [place] 4 08:44:24 Cocaine dependence in remission 307780053 Active [place] [facility] - [facility] & [place] 4 08:43:53 Osteoarthr itis of multiple joints 108525526 Active Stephan Santacruz nullELIA LPNT - [place] & [place] 4 08:45:04 Fatigue 28398469 Active Stephan Santacruz null, [place] - [facility] - & [place] 4 08:46:16 Daytime somnolence 881052418222 Active Stephan Santacruz null, [place] - [facility] - [facility] & [place] 4 08:44:07 Nausea [id number] Nathaniel Griffin NP [address] [place] [address], [address], [place], [address] , [place] [facility] - [facility] & [place] 5 11:20:00 Gastroesop hageal reflux disease 349306356 Active Stephan Santacruz null[place] - [facility] - [facility] & [place] 4 08:45:59 CT of chest abnormal 8155991086585 9102 Active Stephan Snatacruz null, [place] - [place] & [place] 4 08:44:03 Hyperlipid emia 89399369 Active Stephan Santac[place] & [place] 4 08:46:34 Type 2 diabetes mellitus without complicati on 548941148 Active Not Available [facility] 4 08:10:34 Anxiety 98957060 Active Stephan Santacruz null, [place] - [place] & [place] 4 08:43:26 Obstructiv e sleep apnea syndrome 97139779 Active Stephan Santac[place] null, [place] & [place] 4 08:45:09 Nodule of lung 978272934 Active Stephan Santac[place] & [place] 4 08:45:12 Diarrhea 50291883 Active Stephan Santac[place] & [place] 4 08:44:14 Binge drinker 834112233 Active Stephan Santac[place] & [place] 4 08:43:30 Epigastric pain 53683774 Active Stephan Santac[place] & [place] 4 08:44:36 Mild intermitte nt asthma 234379692 Active Stephan Santac[place] - & [place] 4 08:45:29 Lumbar spondylosi s 098571640 Active Stephan Santac[place] null[place] & [place] 4 08:45:35 Constipati on 34148563 Active Stephan Santac[place] & [place] 4 08:43:57 Dysphagia 83684068 Active 2022 Stephan Santac[place] & [place] 4 08:44:28 Diarrhea of presumed infectious origin 00284985 Active 2022 Stephan Santacruz null, [place] & [place] 4 08:44:18 Infection by Strongyloi jeni 8668474 Active 2022 Stephan Santacruz jodi, [place] - [facility] & [place] 4 08:46:43 Gastroesop hageal reflux disease without esophagiti s 752041062 Active 2022 Not Available [facility] 4 08:10:34 Obesity 193237913 Active 2023 Nara Johnson MD [address] [place] [address], [address] , [place] - [facility] [facility] & [place] 4 10:22:51 Notes:Some problems listed i n Document: #[id number] could not be added to this patient's chart. Please review this document and add these problems to the patient's chart manually as needed. Problem Notes None recorded. Procedures Surgical History Date Name Laterality Status Provider Name and Address Organization Details Recorded Time 2024 6 Minute Walk Test completed Trini RODRIGEZ - LPNT [facility] & [place] 5 12:06:58 2023 Medicare Annual Wellness Visit Health Risk Assessment completed Saba RODRIGEZ - LP[facility] & [place] 4 09:13:41 2023 Nasal Endoscopy completed Elton WATERMAN [facility] & [place] 4 14:11:07 2022 Fiberoptic Laryngoscopy completed Elton WATERMAN [facility] & [place] 3 15:34:17 2017 colonoscopy completed Henna Griffin NP [address], [address], [place], [address], [place] - [facility] & [place] 5 13:08:30 2017 esophagogastroduodenoscopy completed Alicia Griffin NP [address], [address], [place], [place], [address], [place] - [facility] - [place] & [place] 5 13:08:39 2016 Unlisted px dentalvlr strux completed Yvonne RODRIGEZ [facility] & [place] 2 12:01:52 2015 esophagogastroduodenoscopy completed Nehemias RODRIGEZ [facility] & [place] 2 12:01:40 2007 Partial hysterectomy completed Sabaadithya RODRIGEZ [facility] & [place] 2 11:59:20 Sinus Surgery completed Irma Annabel [place] [facility] & [place] 4 13:42:39 parathyroidectomy completed Sabaadithya Kirby [place] [facility] & [place] 2 12:00:51 Imaging Results None recorded. Procedure Notes None recorded. Medical Equipment None Reported. Allergies Allergen ID Allergen Name Allergen Category Reaction Reaction Severity Criticality Documentation Date Start Date Code Code System Note Provider Name and Address Organization Details Recorded Time 24229 Substance with sulfonami de structure and antibacte rial mechanism of action (substanc e) medicatio n abdominal pain nausea vomiting mild moderate moderate Not available 08/24/2022 61138 8003 SNOMED Not Available [facility] 2 14:26:01 09983 codeine medicatio n nausea mild Not available 08/24/2022 2670 RxNorm Not Available [facility] 2 14:26:01 Medications Name Sig Start Date [...] Arterial blood by Pulse oximetry Heart rate Respiratory rate Systolic blood pressure Diastolic blood pressure Provider Name and Address Organization Details Last Updated DateTime 5 154.94 cm 30.4 kg/m2 41384.3 7 g 97.4 [degF] 94 % 94 % 94 /min 18 /min 121 mm[Hg] 81 mm[Hg] Stephan Santacruz [facility] & [place] 5 10:33:09 Date Recorded Body height Body mass index (BMI) Body weight Body temperature Oxygen saturation Oxygen saturation in Arterial blood by Pulse oximetry Heart rate Provider Name and Address Organization Details Last Updated DateTime 5 154.94 cm 31.8 kg/m2 88682.2 4 g 97.1 [degF] 97 % 97 % 76 /min Anu Emilio [facility] & [place] 5 11:02:30 Date Recorded Body height Body mass index (BMI) Body weight Body temperature Oxygen saturation Oxygen saturation in Arterial blood by Pulse oximetry Inhaled oxygen flow rate Heart rate Respiratory rate Systolic blood pressure Diastolic blood pressure Provider Name and Address Organization Details Last Updated DateTime 5 154.94 cm 33.3 kg/m2 35525.6 9 g 97.2 [degF] 92 % 92 % 2 L/min 74 /min 18 /min 124 mm[Hg] 74 mm[Hg] Saba RODRIGEZ [facility] & [place] 5 09:04:45 Date Recorded Body height Body mass index (BMI) Body weight Body temperature Oxygen saturation Oxygen saturation in Arterial blood by Pulse oximetry Inhaled oxygen flow rate Heart rate Respiratory rate Systolic blood pressure Diastolic blood pressure Provider Name and Address Organization Details Last Updated DateTime 5 154.94 cm 31.1 kg/m2 87956.0 2 g 97.4 [degF] 94 % 94 % 2 L/min 85 /min 16 /min 124 mm[Hg] 87 mm[Hg] Saba Cam [place] [facility] & [place] 5 14:40:08 Social History Question Answer Notes LastModified by Organizat ion Details LastModified Time Tobacco Smoking Status Former Smoker Saba Sanchezjennifer zapaat[facility] & [place] 12/29/2024 14:30:53 Do You Have An Advance Directive? No [email or web address] Information n ot available 05/05/2024 Do You Wear A Helmet When Biking? Yes [email or web address] Information not available 05/05/2024 Are You Blind Or Do You Have Difficulty Seeing? No [email or web address] Information n ot available 05/05/2024 What Is Your Level Of Caffeine Consumption? None [email or web address] Information not available 05/05/2024 In The 14 Days Before Symptom Onset, Have You Had Close Contact With A Laboratory-confirm ed COVID-19 While That Case Was Ill? No [email or web address] Information n ot available 05/05/2024 In The 14 Days Before Symptom Onset, Have You Had Close Contact With A Person Who Is Under Investigation For COVID-19 While That Person Was Ill? No [email or web address] Information not available 05/05/2024 Have You Been To An Area Known To Be High Risk For COVID-19? No [email or web address] Information not available 05/05/2024 Are You Deaf Or Do You Have Serious Difficulty Hearing? No Information not available 05/05/2024 What Type Of Diet Are You Following? REGULAR Information n ot available 05/05/2024 Have You Processed Blood Or Body Fluids From An Ebola Virus Disease Patient Without Appropriate PPE? No Information not available 05/05/2024 Do You Reside In Or Have You Traveled To An Area Where Ebola Virus Transmission Is Active? No [email or web address] Information not available 05/05/2024 Have There Been Any Changes To Your Family Or Social Situation? No [email or web address] Information no t available 05/05/2024 What Is The Fluoride Status Of Your Home? Unknown [email or web address] Information not available 05/05/2024 When Did You Quit Smoking? 1-5yearssince lastcigarette Information not available 12/29/2024 Are There Any Guns Present In Your Home? No [email or web address] Information not available 05/05/2024 Have You Recently Or Are You Planning To Travel To An Area With Zika Virus? No [email or web address] Information not available 05/05/2024 Do You Use Insect Repellent Routinely? Yes Information not available 05/05/2024 In General, Would [...] Bread, 1 Cup Of Whole-grain Or High-fiber Njxzl-cs-ngn Cereal, 1 2 Cup Of Cooked Cereal Such As Oatmeal, Or 1 2 Cup Of Cooked Brown Rice Or Whole Wheat Pasta.) 1-2 Servings Per Day Information not available 05/27/2024 In The Past 7 Days, How Many Servings Of Fried Or High-fat Foods Did You Typically Eat Each Day? (Examples Include Fried Chicken, Fried Fish, [place], [place] Wild Horse, Potato Chips, [place] Chips, Doughnuts, Creamy Salad Dressings, And Foods [...] Past 7 Days, How Often Have You [place] Sleepy During The Daytime? Rarely Information not [...] Do You Feel Safe At Home? Yes [email or web address] Information not available 05/05/2024 Do You Have A Medical Power Of Grinding Wheel Facer? No [email or web address] Information not available 05/05/2024 What Was The Date Of Your Most Recent Tobacco Screening? 05/20/2024 [email or web address] Information not available 05/20/2024 What Is Your Current Pack Years? 20-29packyear s Information not available 08/24/2022 Do You Have Any Pets? No [email or web address] Information not available 05/05/2024 What Is Your Relationship Status? Domestic Partner Information not available 05/27/2024 Do You Use Your Seat Belt Or Car Seat Routinely? Yes [email or web address] Information not available 05/05/2024 Are You Sexually Active? Yes Information not available 05/27/2024 Do You Have Smoke And Carbon Monoxide Detectors In Your Home? Yes [email or web address] Information not available 05/05/2024 Are You Passively Exposed To Smoke? No Information no t available 05/05/2024 How Much Tobacco Do You Smoke? 1 PPD Information not available 08/24/2022 Do You Use Sunscreen Routinely? Yes [email or web address] Information not available 05/05/2024 Has Tobacco Cessation Counseling Been Provided? Yes Information not available 08/24/2022 On What Date Was Tobacco Cessation Counseling Provided? 05/20/2024 Information not available 05/20/2024 Do You Have Difficulty Walking Or Climbing Stairs? No Information not available 05/05/2024 Are You Currently In School? No [email or web address] Information not available 05/05/2024 Sex: Unknown Functional [...] available 08/24/2022 Are you currently employed? No Information not available 05/05/2024 Do you have transportation difficulties? No Information not available 05/05/2024 Are you able to walk? YESWOREST [email or web address] Information not available 05/05/2024 Do you have difficulty doing errands alone? No [email or web address] Information not available 05/05/2024 Are you able to care for yourself? Yes [email or web address] Information not available 05/05/2024 Do you have difficulty dressing or bathing? No [email or web address] Information not available 05/05/2024 What is your exercise level? None [email or web address] Information not available 05/05/2024 Mental Status Question Answer Note LastModified by Organizat ion Details LastModified Time Do you feel stressed (tense, restless, nervous, or anxious, or unable to sleep at night)? [id number] [email or web address] Information not available 05/05/2024 Do you have difficulty concentrating, remembering or making decisions? No [email or web address] Information no t available 05/05/2024 Family History [...] N Immune System Disorder N Heart Attack (PA) N Diabetes Y Bleeding Disorder N Tuberculosis [...] mL 1 completed Not Available [facility] 01/02/2024 08:10:35 TST-PPD intradermal 2 completed Not Available [facility] 01/02/2024 08:10:35 COVID-19, mRNA, LNP-S, PF, 100 mcg/0.5mL dose or 50 mcg/0.25mL dose 2 completed Ronit Lugo null, [place] - [place] & [place] 02/24/2024 12:29:29 COVID-19 vaccine, vector-nr, rS-Ad26, PF, 0.5 mL 1 completed Ronit Evanstle null, [place] - [place] & [place] 02/24/2024 12:29:29 COVID-19, mRNA, LNP-S, bivalent, PF, 50 mcg/0.5 mL or 25mcg/0.25 mL dose 3 completed [place] - [place] & [place] 02/24/2024 12:29:29 COVID-19, mRNA, LNP-S, PF, 50 mcg/0.5 mL 3 completed [place] - [place] & [place] 02/24/2024 12:29:29 Past Encounters Encounter ID Performer Location Encounter Start Date Encounter Closed Date Diagnosis/Indication Diagnosis SNOMED-CT Code Diagnosis ICD10 Code Diagnosis Note [id number] Nara Johnson MD [address] [address] 08/24/2022 11:36:43 08/24/2022 12:12:00 Acute sinusitis 64059271 J01.90 Hyperlipidemia 35760675 E78.5 WILL REFILL PRAVASTATI N Type 2 tiki betes mellitus without complication 128778184 E11.9 PATIENT'S FINGERSTIC K BLOOD SUGAR CHECK WAS 128. [id number] Nara Johnson MD [address] [address] 10/05/2022 09:26:34 10/05/2022 10:07:26 Asthma 310359135 J45.909 labs drawn by Erick RT AC Chronic ob structive pulmonary disease 34184361 J44.9 pt to continue on o2 Chronic pain syndrome 37 2752355 G89.4 pt to continue with suboxone Fibromyalgia 398090571 M 79.7 Irritable bowel syndrome 55151585 K58.9 Mixed anxi ety and depressive disorder 134632097 F41.8 Type 2 tiki betes mellitus without complication 545096052 E11.9 [id number] Nara Johnson MD [address] [address] 10/31/2022 09:42:13 10/31/2022 10:34:29 Cough 92117001 R05.9 Acute sinusitis 01445860 J01.90 [id number] Henna Griffin NP [facility] [address] [place] [address] 12/13/2022 09:10:50 12/13/2022 09:58:10 Gastroesophageal reflux disease 922458971 K21.9 Controlled with use of Protonix and famotidine . Will send refills today. Recommend continued reflux precaution s with avoidance of food triggers. Irritable bowel syndrome characterized by constipation 990524023 K58.1 Improved with use of Linzess 290 mcg. Currently without medication and experienci ng recurrent symptoms. Linzess 290 mcg samples given to pt. Recommend increased water intake. Previously failed treatment with MiraLax, fiber, OTC stool softeners as well as OTC laxatives. Dysphagia 85910191 R13.1 0 Occasional episodes of dysphagia to medication s. I have instructed patient to take medication with small sips of water or applesauce and avoid taking multiple medication s at 1 time. Recommend esophagram and MBS to further evaluate. [id number] Nara Johnson MD [address] [address] 01/09/2023 11:22:49 01/09/2023 11:23:57 Fibromyalgia 317667047 M79.7 Asthma 495230512 J45.90 9 Chronic pain syndrome 37 5952009 G89.4 pt to continue with suboxone Osteoarthritis 921057996 M19.90 Chronic ob structive pulmonary disease 20173914 J44.9 pt to continue on o2 walking test indicates need for oxygen [id number] Rose Maher MD [facility] [facility] [address] 01/23/2023 14:34:19 01/23/2023 15:40:22 Hoarse 31167350 R49.0 Explained to the patient I saw nothing concerning on laryngosco py exam today. No mass/tumor seen. I do see significan t signs of reflux. This is likely causing edema of her vocal folds. I would like for her see Dr. Jarrell given she has been on a variety of different reflux medication s. I will see her back as needed. Oropharyng eal dysphagia 48714581 R13.12 Tobacco de pendence syndrome 77888024 F17.200 Dependence on supplemental oxygen 2024277346 07 Z99.81 Laryngopha ryngeal reflux 311224609 K21.9 [id number] Nara Johnson MD [email or web address] [address] 02/07/2023 10:31:49 02/07/2023 10:55:06 Acute exacerbation of chronic obstructive pulmonary disease 039909034 J44.1 will treat patient with IM antibiotic s and steroids. Tobacco de pendence syndrome 88262451 F17.200 we have had extensive discussion s regarding smoking cessation. At this time I have asked patient to see if she can reduce her smoking to no more than 10 cigarettes a day. She has agreed to attempt to do that. She will follow-up in a week with a log of her smoking habit. Will address it at that time. Patient also states that she has Nicoderm patches at home and will start using them. [id number] Henna Griffin NP [facility] [address] [address] 02/14/2023 13:53:39 02/23/2023 12:39:47 Gastroesophageal reflux disease 776639865 K21.9 Uncontroll ed symptoms at this time with use of Protonix and Famotidine . Failed treatment wtih Omeprazole , Nexium, and Prevacid in the past. I have recommende d strict reflux precaution s as well as smoking cessation and decreased caffeine intake. Recommend Dexilant 60 mg po daily with use of OTC pepcid complete BID PRN. Irritable bowel syndrome characterized by constipation 841745332 K58.1 Controlled with Linzess 290 mcg. Recommend continued use. Previously failed treatment with MiraLax, fiber, OTC stool softeners as well as OTC laxatives. Dysphagia 95876058 R13.1 0 Occasional episodes of dysphagia to medication s. Somewhat improved after taking medication with applesauce . Recommend esophagram and MBS to further evaluate. Recently evaluated by ENT and diagnosed with LPR. [id number] Nara Johnson MD [email or web address] [address] 02/19/2023 12:17:19 02/19/2023 12:58:35 Acute bronchitis 54371494 J20.9 patient has been advised to start a different antibiotic . She has been informed that she needs to go to the emergency department if she does not improve. [id number] Henna Griffin NP [facility] [address] [place] [address] 03/21/2023 13:14:00 03/21/2023 14:29:55 Dysphagia 46552233 R13.10 Occasional episodes of dysphagia to medication s. Somewhat improved after taking medication with applesauce . Plan for esophagram and MBS to further evaluate. Previously evaluated by ENT and diagnosed with LPR. Diarrhea o f presumed infectious origin 21358108 A09 3 week history of diarrhea, 10-12 watery loose stool with urgency. Recent use of antibiotic s for COPD exacerbati on. Recommend stool studies to further evaluate. Recommend Xray abd KUB to r/o underlying stool burden due to hx of constipati on. [id number] Nara Johnson MD [address] [place] [address] 06/08/2023 09:48:36 06/08/2023 10:16:38 Type 2 diabetes mellitus without complication 217604562 E11.9 Continue with current regimen. she should be on 0.5 mg of Ozempic weekly. Patient admits to giving herself 0.25. She will increase her dose appropriat emerald. Osteoarthritis 433789386 M19.90 Controlled with diclofenac . Will renew her prescripti on. Mixed anxi ety and depressive disorder 550509318 F41.8 Stable Neuropathy 238842382 G62 .9 stable [id number] Nara Johnson MD [address] [place] [address] 07/03/2023 09:52:06 07/03/2023 10:11:13 Type 2 diabetes mellitus without complication 800383065 E11.9 Allergic rhinitis 818577 04 J30.9 I WILL GIVE PATIENT A PRESCRIPTI ON FOR SOME STEROIDS. WILL ALSO CHANGE HER ZYRTEC 2 FEXOFENADI NE. Gastroesop hageal reflux disease without esophagitis 898744878 K21.9 WILL STOP PATIENT'S PANTOPRAZO LE AND START HER ON NEXIUM. SHE IS TO CONTINUE WITH HER FAMOTIDINE . [id number] Pato Johnston MD [address] [place] [address] 07/19/2023 11:23:32 07/19/2023 11:52:19 Acute exacerbation of chronic obstructive pulmonary disease 561315424 J44.1 oxygen-dep endent. Patient has inhalers and nebulizer at home. She did not tolerate prednisone . We will treat with cefdinir for sinus drainage and productive cough.Seek medical care symptoms become severe. Acute bronchitis 6570089 2 J20.9 Productive cough yellowish sputum. No wheezes are heard coarse breath sounds in the lungs. [id number] Nara Johnson MD [address] [place] [address] 08/14/2023 11:06:56 08/14/2023 12:01:25 Dizziness 986834738 R42 Treat as below Acute sinusitis 73617638 J01.90 will give patient a shot of Rocephin as well as Solu-Medro l. Will also send her home with a prescripti on for doxycyclin e as well as prednisone . Should her symptoms worsen she has been advised to go to the emergency department . Lumbago with sciatica 20 6259713 M54.40 patient reports a long history of sciatica. Will give her a shot of steroids today. She has been instructed to follow-up with a pain specialist . [id number] Nara Johnson MD [address] [place] [address] 11/28/2023 10:17:48 11/28/2023 12:38:42 Congestion of nasal sinus 50208715 R09.81 Allergic rhinitis 812788 04 J30.9 patient states that she is unable to tolerate p.o. steroids. She has tried several medication s to no avail. I have told her to stop taking the Michelle and Zyrtec. She will start taking Xyzal and will refer her to an paver. Today, will give her a shot of steroids. [id number] Fransisco Page M.D [facility] Pulmonary Medicine [address] [place] [address] 12/13/2023 13:02:09 12/13/2023 14:20:28 Moderate persistent asthma 432532004 J45.40 Dyspnea 445538473 R06.00 Nicotine dependence 5629 4008 F17.200 Screening for malignant neoplasm of respiratory tract 175690084 Z12.2 Chronic ob structive pulmonary disease 89810712 J44.9 [id number] Rose Maher MD [facility] - [id number] [facility], [address] [place] [address] 12/18/2023 13:26:55 12/18/2023 14:07:46 Dyspnea at rest 190040610 R06.00 O2 saturation is hovering around 93/95 while using oxygen and this is likely baseline for her. Will send her for chest xray for further evaluation . Explained should her condition worsen, she should be seen in the ER. I will be in touch with the results of her xray when they are received. Allergic rhinitis 044584 04 J30.9 Explained to patient I saw nothing concerning on nasal endoscopy today in office. No sign of nasal polyps/gely or/lesion/ mass seen. [facility] Explained she needs to come off of her hydroxyzin e and antihistam ine five days prior to testing and we will have to schedule at least 30 days away from her last steroids. Will discuss options at that visit. Will see her back sooner if needed. [id number] Nara Johnson MD [address] [place] [address] 12/12/2023 10:49:10 12/12/2023 11:49:59 Acute exacerbation of chronic obstructive pulmonary disease 399740695 J44.1 will give pt prescripti on for doxycyclin e. alos pt needs to f/u with pulmonolog y, we have made an appt for her pulmonogy [id number] Fransisco Page M.D [facility] Pulmonary Medicine [address] [place] [address] [place] [address] 03/19/2024 11:31:17 03/19/2024 12:09:27 Moderate persistent asthma 031140833 J45.40 Dyspnea 059380318 R06.00 Nicotine dependence 5629 4008 F17.200 Screening for malignant neoplasm of respiratory tract 747579974 Z12.2 Chronic ob structive pulmonary disease 44231445 J44.9 [id number] Nara Johnson MD [facility] [address] [facility] [place] [address] 02/25/2024 09:52:23 02/25/2024 10:39:52 Type 2 diabetes mellitus without complication 053155290 E11.9 a1c check today Chronic ob structive pulmonary disease 05554171 J44.9 pt to continue on o2 walking test indicates need for oxygen Her oxygen drops to less than 88% on room air with walking test. O2 sat improved with oxygen to 96%. [id number] Nara Johnson MD [address] [place] [address] 02/27/2024 10:48:24 02/27/2024 11:30:45 Obesity 130814361 E66.9 will refer patient to dietitian [id number] Nara Johnson MD [address] [place] [address] 04/01/2024 09:58:08 04/01/2024 10:37:23 Obesity 815181990 E66.9 patient has been seen by a dietitian. She has a new diet plan. She is also on Ozempic. Patient states that she has lost 6 lb since her last visit based on her home scales. I have encouraged her to continue with her current regimen. Will continue to see patient monthly for now. [id number] Rose Maher MD [facility] of [address] [place] [address] 03/25/2024 08:49:04 03/25/2024 09:17:58 Allergic rhinitis 60277721 J30.9 Patient states she has been taking her cetirizine but not her hydroxyzin e. She also had one steroid pill a week or so ago. After doing a control for skin testing failed, it was discovered she also had a steroid injection yesterday. Her blood was drawn for RAST. Will be in touch with those results when they are received, and will discuss treatment options at that time. [id number] Nara Johnson MD [address] [place] [address] 05/27/2024 08:57:05 05/27/2024 09:20:38 Type 2 diabetes mellitus without complication 714850085 E11.9 a1c check today Adult [facility] examination 865308617 Z00.00 Allergic rhinitis 978607 04 J30.9 Continue with current regimen. Asthma 667297357 J45.90 9 Patient continues to follow-up with pulmonolog y. Chronic pain syndrome 37 8637477 G89.4 pt to continue with suboxone Well contr olled type 2 diabetes mellitus 968836099 E11.9 Patient to continue with regimen that includes Ozempic. At her request will increase Ozempic to help assist in weight loss. Screening for malignant neoplasm of colon 060129614 Z12.11 will order colonoscop y. [id number] Henna Griffin NP [facility] [address] [place] [address] 04/02/2024 11:20:25 04/08/2024 15:36:30 Dysphagia 13102180 R13.10 continued episodes of dysphagia with medication s. improved with taking medication with applesauce . Esophagram and modified barium swallow 04/02/2023 with mild gastroesop hageal reflux without aspiration noted. Patient denies worsening symptoms at this time. Consider repeat modified barium swallow with speech therapy evaluation if she experience s worsening symptoms. Abdominal bloating 79875 9008 R14.0 Recently improved with dietary modificati on. Gastro-eso phageal reflux disease with esophagitis 568401302 K21.00 Controlled with daily PPI. Recommend continued reflux precaution s and avoidance of known food triggers. Chronic id iopathic constipation 54258509 K59.04 Currently controlled with use of MiraLax and stool softeners. [id number] Nara Johnson MD [place] [address] [facility] [place] [address] 05/05/2024 11:05:34 05/06/2024 08:54:15 Acute sinusitis 53312920 J01.90 Type 2 tiki betes mellitus without complication 317783776 E11.9 a1c check today Hyperlipid emia screening 848459765 Z13.220 will order lab work. Thyroid di sorder screening 335109859 Z13.29 will order a TSH today. [id number] Pato Johnston MD [facility] [address] [facility] [place] [address] 05/20/2024 08:28:07 05/21/2024 08:42:27 Acute upper respiratory infection 65883087 J06.9 testing is all negative. Recurrent sinusitis 1956 34749 J32.9 Patient seen and treated 2 weeks ago states symptoms did not resolve. Still blowing out yellow drainage from nose. We will treat with Levaquin. Continue other medicines as prescribed [id number] Nara Johnson MD [address] [place] [address] 06/30/2024 10:13:38 06/30/2024 11:33:51 Acute upper respiratory infection 46551962 J06.9 will treat patient empiricall y with antibiotic s and steroids. Patient refuses p.o. prednisone but will accept a shot of Solu-Medro l here today.Day ent has been advised to go to the emergency department if she does not improve. She may require x-ray studies. [id number] Nara Johnson MD [address] [place] [address] 07/07/2024 11:46:58 07/07/2024 13:47:48 Injury of left foot 5142078623 6044006 S99.922A will obtain x-rays. Patient has been advised to elevate and ice her foot. Acute bronchitis 2662366 2 J20.9 patient has been advised to start a different antibiotic . She has been informed that she needs to go to the emergency department if she does not improve. [id number] Fransisco Page M.D [facility] Pulmonary Medicine [address] [place] [address] 07/21/2024 11:00:47 07/21/2024 11:44:03 Moderate persistent asthma 706685106 J45.40 Dyspnea 807375305 R06.00 Nicotine dependence 5629 4008 F17.200 Screening for malignant neoplasm of respiratory tract 418330548 Z12.2 Chronic ob structive pulmonary disease 59624298 J44.9 Allergic rhinitis 506133 04 J30.9 Acid reflux 925314820 K2 1.9 [id number] Fransisco Page M.D [facility] Pulmonary Medicine [facility] [address] [place] [address] [address] [place] [address] 12/29/2024 11:21:23 12/29/2024 11:53:56 Moderate persistent asthma 210681956 J45.40 Dyspnea 818460257 R06.00 Nicotine dependence 5629 4008 F17.200 Screening for malignant neoplasm of respiratory tract 101780535 Z12.2 Chronic ob structive pulmonary disease 16405894 J44.9 Allergic rhinitis 864920 04 J30.9 Acid reflux 802426939 K2 1.9 Nodule of lung 572636659 R91.1 [id number] Nara Johnson MD [address] [place] [address] 12/29/2024 13:34:01 12/29/2024 14:53:40 Anxiety 39910302 F41.9 Patient to restart her buspirone. Will also increase her paroxetine to 40 mg a day. Insomnia 983770338 G47.0 0 have told patient to stop taking trazodone. Will try her on Zolpidem. She is to follow-up in a week. [id number] Nara Johnson MD [address] [place] [address] 01/05/2025 10:32:41 01/05/2025 11:29:28 Anxiety 61890527 F41.9 I will add alprazolam to her regimen Chronic pain syndrome 37 0709315 G89.4 patient is weaning herself off Suboxone. Exogenous hyperlipidemia 194676558 E78.49 Disturbanc e in sleep behavior 43804031 G47.9 Gastro-eso phageal reflux disease with esophagitis 088079573 K21.00 [id number] Nara Johnson MD [address] [place] [address] 01/12/2025 14:16:42 01/12/2025 14:54:16 Type 2 diabetes mellitus without complication 957188659 E11.9 a1c check today Anxiety 24800325 F41.9 Patient is tolerating alprazolam well. She reports improvemen t in her symptoms. Will continue on current regimen for now. Chronic ob structive pulmonary disease 56248562 J44.9 Patient to continue with oxygen at this time. Hyperlipid emia screening 587686847 Z13.220 will order lab work. Thyroid di sorder screening 064082400 Z13.29 will order a TSH today. Dysuria 84198666 R30.0 [id number] Nara Johnson MD [facility] [address] [place] [address] 02/16/2025 10:11:27 02/17/2025 08:03:12 Anxiety 96109731 F41.9 Continue with current regimen. Asthma 470845814 J45.90 9 Patient's asthma remained stable. She does follow-up with pulmonolog y Chronic ob structive pulmonary disease 97313147 J44.9 Patient to continue with oxygen at this time. Mixed urin elizabeth incontinence 219019921 N39.46 will refer patient to specialist Mixed anxi ety and depressive disorder 022403097 F41.8 patient states that she has an appointmen t to see a psychiatri st next week. [id number] RAAD BRAVO NP [facility] [address] [place] [address] 02/02/2025 12:43:44 02/02/2025 16:34:30 Dysuria 64994716 R30.0 [id number] Henna Griffin NP [facility] [address] [place] [address] [place] [address] 04/01/2025 10:39:31 04/01/2025 11:19:03 Gastro-esophageal reflux disease with esophagitis 486618535 K21.00 Continues pantoprazo le 40 mg daily for treatment. Recently experienci ng increased dyspepsia and belching. Recommend continued use of PPI as prescribed as well as reflux precaution s. Plan for EGD to further evaluate. Chronic id iopathic constipation 98645198 K59.04 Currently controlled with use of MiraLax and stool softeners. Nausea 587377064 R11.0 daily episodes of nausea and dyspepsia for the past several weeks. She is currently prescribed NSAIDs for arthritis. Recommend EGD to evaluate for erosive gastritis, PUD, other. Burping 584343771 R14.2 Increased belching and dyspepsia over the past several weeks. Recommend continued use of PPI as prescribed . Plan for EGD as above to further evaluate. Blood-tinged feces 30636 46132 78549 K92.1 Episodes of hematochez ia that occurred several weeks ago. Currently denies symptoms. Recommend colonoscop y to further evaluate to rule out underlying colon polyps, lesions, internal hemorrhoid s. Last colonoscop y 02/2018. Family his tory of cancer of colon 156741010 Z80.0 Patient's father with history colon cancer. Plan for colonoscop y as above. [id number] Nara Johnson MD [place] [address] [address] [place] [address] 04/13/2025 08:50:17 04/13/2025 10:07:55 Acute cough 8533042136 16856785 R05.1 Will obtain an x-ray. If it shows any significan t findings will go ahead and put patient on antibiotic s and steroids. We are currently waiting results. Anxiety 39860742 F41.9 Continue with current regimen. Well contr olled type 2 diabetes mellitus 967569328 E11.9 Patient to continue with regimen that includes Ozempic. At her request will increase Ozempic to help assist in weight loss. Body mass index 30+ - obesity 743406590 E66.9 patient to restart her Ozempic this should help her weight gain journey. She has also been advised to continue with diet and exercise. [id number] Nara Johnson MD [place] [address] [address] [place] [address] 04/30/2025 14:26:14 04/30/2025 14:44:39 History of pneumonia 137478367 Z87.01 will obtain chest x-ray and start patient on Levaquin.I am going to refer her for pulmonary rehab. Nausea 454073076 R11.0 Patient has been advised to try Reglan for her chronic nausea. Obstructive emphysema 16 787456 J43.9 Chronic ob structive pulmonary disease 12526756 J44.9 Patient to continue with oxygen at this time. Health Concerns Section Related Observation LastModified by Organization Detai ls LastModified Time None Recorded Concern Status LastModified by Organization Details LastModified Time None Recorded Advance Directives Directive N: Payers Insurance Date Sequence Insurance Name Policy Number Policy Reyes Covered Member ID Reyes Member ID Guarantor Name 04/30/2025 1 [employer] (MEDICARE REPLACEMENT/AD VANTAGE - PPO) Coretta Moctezuma [id number] Coretta Moctezuma 03/19/2024 2 [place] Coretta Rolon [id number] Coretta Siler 06/14/2024 1 [place] [id number] Coretta Rhianna [id number] Coretta Siler 03/19/2024 2 [place] [id number] Coretta Rhianna [id number] Coretta Siler 06/14/2024 2 [place] [facility] [employer] - FFS/TRADITIONA L Coretta Rhianna [id number] Coretta Rhianna 03/19/2024 1 [employer] [place]) Coretta Tillar [id number] Coretta Siler 12/13/2023 1 [employer] Coretta Tillar [id number] Coretta Rhianna 04/30/2025 [place] [employer] [facility] Coretta Shabazzton [id number] Coretta Rhianna 04/30/2025 2 [place] [facility] [employer] - FFS/TRADITIONA L Coretta Ольга [id number] Coretta Siler 12/09/2024 1 [place]MED[place] H[place] [id number] Coretta R Rhianna [id number] Coretta Siler Notes Date Note Type Note Provider Name and Address Organization Details Recorded Time 02/16/2025 text/html Patient presents for routine follow-up. She reports improvement in her anxiety. She continues to take medication as prescribed. Nara Johnson MD [address] [place] [address], [phone] [place] [facility] [place] 02/16/2025 10:53:35 04/01/2025 text/html Patient returns to clinic today [...] history of colon cancer. Henna Griffin NP [address] [place] [address], [address], [place], [address], [facility] & [place] 04/01/2025 13:09:48 04/13/2025 text/html SDScomplains of a 2-3 day history of a cough productive of yellowish sputum. She is also worried about a weight she has gained 25 lb since November. She states that the weight gain coincides with when she stops smoking. She has several complaints they include left foot pain. She has requesting a referral to Podiatry. She is complaining of continued worsening pain to her left hip with associated sciatica. She has requesting a referral to orthopedist. She is requesting a refill on her alprazolam and her Ozempic. Nara Johnson MD [address] [place], [address], [facility] & [place] 04/13/2025 10:23:21 04/30/2025 text/html patient presents today to follow-up from hospital admission. Patient was admitted for pneumonia 2 weeks ago. She states that she was sent home on antibiotics however she has continued to cough. Cough is productive of yellowish sputum. Nara Johnson MD [address] [facility], [place], [address], [facility] & [place] 04/30/2025 15:22:50 OBGyn Episode No OBEpisode recorded.
--- OUTSIDE RECORDS SUMMARY | 2025-05-04 11:03 | XMS_ITS | Continuity of Care Document ---
Author Organization - [facility] Address [address] [address] Care Team Providers Care Retail Director Name Role Phone HENNA GRIFFIN Big Data Developer [phone] TUTU JOHNSON Primary Care Provider Assessment No assessment recorded. Plan of Treatment Reminders Order Date Submit Date Provider Last Modified By Organization Details Last Modified Time Details Appointments OV EST 15 2024 09:30A M Tutu Johnson MD Not available Not available Not available OV EST 15 2024 01:15P M Fransisco Page M.D Not available Not available Not available PROC 2024 07:30A M Edvin Jarrell M.D Not available Not available Not available OV EST 15 2024 02:15P M Henna Griffin NP Not available Not available Not available Lab None recorded . Referral None recorded . Procedures None recorded . Surgeries None recorded . Imaging XR, chest, 2 view 2024 025 [facility] [address] [place], [address], 04/13/2025 12:44:29 Medication Orders Ozempic 2 mg/dose (8 mg/3 mL) subcutan eous pen injector 2024 025 [id number], [address] [place], [place], [id number], 04/13/2025 10:23:24 alprazol am 0.5 mg tablet 2024 025 [facility] #[id number], [address], [place], [place], [id number], 04/13/2025 10:20:56 Patient TargetsNo targets recorded. Patient InstructionsNo instructions recorded. Reason for Referral None Reported. Results Created Date Observation Date Name Description Value Unit Range Abnormal Flag Note LastModifiedBy Organization Detail LastModifiedTime 04/03/20 25 04/03/2025 CT, chest , w/o contr ast [facility] [address] [place] [address] [phone] (Phone ) PAU Jennifer REPORT Name: ROBERTO MOCTEZUMA : 1969 Accoun t #: [id number] Age: 55 Years Patien t Type: Outpat ient Sex: F Access ion#: [id number] Exam Descri ption: CT CHEST WO Exam Reason : r91.1 solita ry pulmon elizabeth nodule Order Date/T jamie: 2024 10:05: 21 AM Dictat ed By: Alejandrina Todd MD Orderi Physic lg: DILCIA BUTLER, REGANSOIsis Attend [facility] Physic lg: DILCIA BUTLER, YOUSOF EXAM: CT [...] ROBERTO MOCTEZUMA : 1969 Accoun t #: [id number] Age: 55 Years Patien t Type: Outpat ient Sex: F Access ion#: [id number] Exam Descri ption: CT CHEST WO [...] ELGARI ED YOUSOF CC Provid er: ALEX HEBERT Attend ing Provid er: ELGARI ED YOUSOF Referr ing Provid er: ELGARI ED YOUSOF Admitt ing Provid er: ELGARI ED YOUSOF [email or web address] [facility] [address] [place] [address] [place], [address], 04/06/2025 10:56:17 04/03/20 25 04/03/2025 imagi ng inter preta tion No observ ation record ed. [email or web address] [facility] (Registration ) [address] [place] [address] [place], [address], 04/06/2025 07:57:34 04/13/20 25 04/13/2025 XR, chest , 2 [facility] [address] [address] Phone: Fax: Name: ROBERTO MOCTEZUMA Exam Date: 025 : [birth year] Age 55 years Gender : F Access ion: [id number] Physic lg: KAREEM JOHNSON Facili ty: [facility] Facili ty HSV: Outpat ient [...] TODD 025 Thank you for referr ing ROBERTO MOCTEZUMA to [facility]. Legall y authen ticate d by AMADA TINOCO MD 04-13 10:14: 40 CC'ed Logic: Orderi ng Provid er: ALEX HEBERT CC Provid er: ALEX HEBERT Attend ing Provid er: ALEX HEBERT Referr ing Provid er: ALEX HEBERT Admitt ing Provid er: ALEX HEBERT [facility] (Radiology) [address] [place], [address], 04/13/2025 13:55:00 05/01/20 25 04/30/2025 XR, chest , 2 view [facility] [address] [facility] [place] [address] Phone: Fax: Name: ROBERTO MOCTEZUMA Exam Date: 04/30/20 25 : [birth year] Age 55 years Gender : F Access ion: [id number] Physic lg: KAREEM JOHNSON NDE Facili ty: [facility] Facili ty HSV: Outpat ient Exam: CHEST PA ^ LAT EXAMIN ATION: TWO VIEW CHEST XR CLINIC AL INDICA TION: Female , 55 years old. HISTOR Y OF PNEUMO DEBORAH. TECHNI QUE: 2 View, PA and latera l, X-ray of the chest was perfor med. [id number] . COMPAR HAILEY: No prior exam. FINDIN [...] you for referr ing ROBERTO [facility] to [facility] Legall y authen ticate d by ROSIBEL DE LUNA MD 04-30 15:23: 14 CC'ed Logic: Orderi ng Provid er: ALEX SERNA NDE CC Provid er: SOHAILEY SERNA NDE Attend ing Provid er: ALEX SERNA NDE Referr ing Provid er: ALEX SERNA NDE Admitt ing Provid er: ALEX SERNA NDE [facility] ([facility]) [address] , [place], [address], 05/03/2025 09:17:32 Result Notes None recorded. Problems Name Problem SNOMED Code Status Onset Date Resolution Date Notes Provider Name and Address Organization Details Recorded Time Blood-ting ed feces 2195537517638 02 Active 2024 Henna Griffin NP [address] [place] [address], [address], [place], [address] , [facility] - [place] & [place] 11:20:19 Abdominal pain 24387283 Active 2021 Not Available [facility] 4 08:10:34 Osteoarthr itis 515050035 Active 2021 Not Available [facility] 4 08:10:34 Tobacco user 970761450 Active 2021 Not Available [facility] 4 08:10:34 Chronic constipati on 097456107 Active 2021 Not Available [facility] 4 08:10:34 Irritable bowel syndrome 62443966 Active 2021 Not Available [facility] 4 08:10:34 Chronic obstructiv e pulmonary disease 42874925 Active 2021 Not Available [facility] 4 08:10:34 Chronic pain syndrome 649404391 Active 2021 Not Available [facility] 4 08:10:34 Asthma 015510023 Active 2021 Not Available [facility] 4 08:10:34 Neuropathy 722235640 Active 2021 Not Available [facility] 4 08:10:34 Mixed anxiety and depressive disorder 098827268 Active 2021 Not Available [facility] 4 08:10:34 Well controlled type 2 diabetes mellitus 632606308 Active Stephan Santacruz null, [place] - [facility] - [place] & [place] 4 08:44:51 Dyspnea 714417369 Active Stephan Santacruz null, [place] - [place] - [place] & [place] 4 08:44:31 Insect sting 753035055 Active Stephan Santacruz null, [place] [facility] [place] & [place] 4 08:45:49 Lower abdominal pain 27701905 Active Stephan Santac[place] null, [place] [facility] [place] & [place] 4 08:45:40 Exacerbati on of moderate persistent asthma 185332282 Active Stephan Santacruz [place], [place] [facility] [place] & [place] 4 08:44:48 Burping 150614384 Active Henna Griffin NP [address], [address], [place], [address] , [place] - [facility] - [place] & [place] 5 11:20:12 Tobacco dependence caused by cigarettes 7300337628072 9107 Active [place] Bradford - [facility] - [place] & [place] 4 08:44:55 Finding of tobacco use and exposure 732674159 Active Stephan Santacruz null, [place] Ghotra [facility] - [place] & [place] 4 08:46:08 Clostridio ides difficile infection 316720309 Active Stephan Santacruz null, [place] - [facility] - [place] & [place] 4 08:43:49 Swollen abdomen 20927815 Active Stephan Santacruz null, [place] - [facility] - [place] & [place] 4 08:44:57 Irritable bowel syndrome characteri zed by constipati on 475753540 Active Stephan Santacruz nullELIA - LP[facility] - [place] & [place] 4 08:45:43 Esophageal dysphagia 70257009 Active Stephan Santacruz nullELIA - LP[facility] - [place] & [place] 4 08:44:40 Fall Active Stephan Santacruz nullELIA - LP[facility] - [place] & [place] 4 08:46:20 Finding of gastrointe stinal tract gas 365543771 Active Stephan Santacruz nullELIA - LP[facility] - [facility] & [place] 4 08:46:12 Chronic pain 65260838 Active Stephan Santacruz nullELIA - [facility] - [place] & [place] 4 08:43:44 Gastritis 9697891 Active Stephan Santacruz null, [place] - [facility] - [facility] & [place] 4 08:46:05 Alteration in bowel eliminatio n 337922689 Active Stephan Satnacruz null, [place] - [facility] - [facility] & [place] 4 08:43:22 Generalize d abdominal pain 908298735 Active Stephan Santacruz null, [place] - [facility] - [facility] & [place] 4 08:46:26 Acute back pain with sciatica 528283010 Active Stephan Ayalales null, [place] - [facility] - [place] & [place] 4 08:43:13 Idiopathic peripheral autonomic neuropathy 47963232 Active [facility] & [place] 4 08:46:40 Pneumonia 613944835 Active [facility] & [place] 4 08:45:02 Pain of multiple joints 30177721 Active Stephan Santacruz null, [place] [facility] & [place] 4 08:45:18 Abdominal bloating 486773110 Active Stephan Santacruz nullELIA [facility] & [place] 4 08:43:10 Chest pain 62823528 Active Stephan Santacruz nullELIA LP[facility] & [place] 4 08:43:37 Chronic idiopathic constipati on 96386009 Active [facility] & [place] 4 08:43:41 Moderate persistent asthma 556824365 Active [facility] & [place] 4 08:45:21 Exogenous hyperlipid emia 895541535 Active Stephan [facility] & [place] 4 08:46:23 Allergic rhinitis 71165488 Active [place]IA Bradford [facility] & [place] 4 08:43:17 History of drug abuse 156894397 Active [facility] & [place] 4 08:46:29 Gastro-eso phageal reflux disease with esophagiti s 203446194 Active Stephan Santacruz nullELIA & [place] 4 08:46:01 Injury of nose 19486779 Active [facility] & [place] 4 08:45:53 Disturbanc e in sleep behavior 45259490 Active Stephan [facility] & [place] 4 08:44:24 Cocaine dependence in remission 156314379 Active Stephan Santacruz nullELIA LPNT [facility] & [place] 4 08:43:53 Osteoarthr itis of multiple joints 662982793 Active Stephan Santacruz null, [place] - [facility] - & [place] 4 08:45:04 Fatigue 23427987 Active Stephan Santacruz null, [place] - [facility] - & [place] 4 08:46:16 Daytime somnolence 038443986072 Active Stephan Santacruz null, [place] - [facility] - & [place] 4 08:44:07 Nausea 433979526 Active Henna Griffin NP [address], [address], [place], [address] , [place] - [facility] - [facility] & [place] 5 11:20:00 Gastroesop hageal reflux disease 159915115 Active Stephan Santacruz null, [place] - [facility] - & [place] 4 08:45:59 CT of chest abnormal 3374927218605 9102 Active Stephan Santacruz null, [place] - [facility] - & [place] 4 08:44:03 Hyperlipid emia 04007892 Active Stephan Santacruz null, [place] - [facility] - & [place] 4 08:46:34 Type 2 diabetes mellitus without complicati on 027289965 Active Not Available [facility] 4 08:10:34 Anxiety 40013984 Active Stephan Santacruz null, [place] - [facility] - & [place] 4 08:43:26 Obstructiv e sleep apnea syndrome 73044253 Active Stephan Santacruz null, [place] - [facility] - & [place] 4 08:45:09 Nodule of lung 426925236 Active Stephan Santacruz null, [place] - [facility] - y & [place] 4 08:45:12 Diarrhea 87943228 Active Stephan Santacruz null, [place] - [facility] - & [place] 4 08:44:14 Binge drinker 217049876 Active Stephan Santacruz null, [place] - [facility] - y & [place] 4 08:43:30 Epigastric pain 73305776 Active Stephan Santacruz null, [place] [facility] & [place] 4 08:44:36 Mild intermitte nt asthma 532301745 Active Stephan Santacruz null, [place] - [facility] - [place] & [place] 4 08:45:29 Lumbar spondylosi s 410747781 Active Stephan Santacruz null, [place] [facility] - [place] & [place] 4 08:45:35 Constipati on 04773597 Active Stephan Santacruz null, [place] [facility] - [place] & [place] 4 08:43:57 Dysphagia 87545485 Active 2022 Stephan Santacruz null, [place] [facility] - [place] & [place] 4 08:44:28 Diarrhea of presumed infectious origin 52148146 Active 2022 Stephan Santacruz null, [place] [facility] - [place] & [place] 4 08:44:18 Infection by Strongyloi jeni 2353374 Active 2022 Stephan Santacruz null, [place] - [facility] - [place] & [place] 4 08:46:43 Gastroesop hageal reflux disease without esophagiti s 695450887 Active 2022 Not Available [facility] 4 08:10:34 Obesity 332163517 Active 2023 Tutu Johnson MD [address] [place] [address], [address] , [place] - [facility] - [place] & [place] 4 10:22:51 Notes:Some problems listed i n Document: #[id number] could not be added to this patient's chart. Please review this document and add these problems to the patient's chart manually as needed. Problem Notes None recorded. Procedures Surgical History Date Name Laterality Status Provider Name and Address Organization Details Recorded Time 2024 6 Minute Walk Test completed Trini Phillips [place] - [facility] - [place] & [place] 5 12:06:58 2023 Medicare Annual Wellness Visit Health Risk Assessment completed Saba Levy [place] - [facility] - [place] & [place] 4 09:13:41 2023 Nasal Endoscopy completed Elton Crouch [place] - [facility] - [place] & [place] 4 14:11:07 2022 Fiberoptic Laryngoscopy completed Elton Crouch [place] - [facility] - [place] & [place] 3 15:34:17 2017 colonoscopy completed Henna Griffin NP [address], [address], [place], [address], [place] - [facility] - [place] & [place] 5 13:08:30 2017 esophagogastroduodenoscopy completed Alicia Griffin NP [address], [address], [place], [address], [place] - [facility] - [place] & [place] 5 13:08:39 2016 Unlisted px dentalvlr strux completed Tamm ie Pardini [place] - [facility] & [place] 2 12:01:52 2015 esophagogastroduodenoscopy completed Ariella e Mirtai [place] - [facility] & [place] 2 12:01:40 2007 Partial hysterectomy completed Saba Pardini [place] - [place] [facility] & [place] 2 11:59:20 Sinus Surgery completed Irma Jin [place] - [place] [facility] & [place] 4 13:42:39 parathyroidectomy completed Saba Pardini [place] - [facility] & [place] 2 12:00:51 Imaging Results None recorded. Procedure Notes None recorded. Medical Equipment None Reported. Allergies Allergen ID Allergen Name Allergen Category Reaction Reaction Severity Criticality Documentation Date Start Date Code Code System Note Provider Name and Address Organization Details Recorded Time 37573 Substance with sulfonami de structure and antibacte rial mechanism of action (substanc e) medicatio n abdominal pain nausea vomiting mild moderate moderate Not available 08/24/2022 83523 8003 SNOMED Not Available [facility] 2 14:26:01 01112 codeine medicatio n nausea mild Not available 08/24/2022 2670 RxNorm Not Available [facility] 2 14:26:01 Medications Name Sig Start Date [...] Updated DateTime 5 154.94 cm 33.3 kg/m2 17657.6 9 g 97.2 [degF] 92 % 92 % 2 L/min 74 /min 18 /min 124 mm[Hg] 74 mm[Hg] Saba Levy [facility] & [place] 5 09:04:45 Social History Question Answer Notes LastModified by Organizat ion Details LastModified Time Tobacco Smoking Status Former Smoker [facility]aba [facility] & [place] 12/29/2024 14:30:53 Do You Have An Advance Directive? No Information n ot available 05/05/2024 Do You Wear A Helmet When Biking? Yes [email or web address] Information not available 05/05/2024 Are You Blind Or Do You Have Difficulty Seeing? No Information n ot available 05/05/2024 What Is Your Level Of Caffeine Consumption? None [email or web address] Information not available 05/05/2024 In The 14 Days Before Symptom Onset, Have You Had Close Contact With A Laboratory-confirm ed COVID-19 While That Case Was Ill? No [email or web address] Information n ot available 05/05/2024 In The 14 Days Before Symptom Onset, Have You Had Close Contact With A Person Who Is Under Investigation For COVID-19 While That Person Was Ill? No [email or web address] Information not available 05/05/2024 Have You Been To An Area Known To Be High Risk For COVID-19? No [email or web address] Information not available 05/05/2024 Are You Deaf Or Do You Have Serious Difficulty Hearing? No [email or web address] Information not available 05/05/2024 What Type Of Diet Are You Following? REGULAR [email or web address] Information n ot available 05/05/2024 Have You Processed Blood Or Body Fluids From An Ebola Virus Disease Patient Without Appropriate PPE? No Information not available 05/05/2024 Do You Reside In Or Have You Traveled To An Area Where Ebola Virus Transmission Is Active? No [email or web address] Information not available 05/05/2024 Have There Been Any Changes To Your Family Or Social Situation? No [email or web address] Information no t available 05/05/2024 What Is The Fluoride Status Of Your Home? Unknown [email or web address] Information not available 05/05/2024 When Did You Quit Smoking? 1-5yearssince lastcigarette Information not available 12/29/2024 Are There Any Guns Present In Your Home? No [email or web address] Information not available 05/05/2024 Have You Recently Or Are You Planning To Travel To An Area With Zika Virus? No [email or web address] Information not available 05/05/2024 Do You Use Insect Repellent Routinely? Yes [email or web address] Information not available 05/05/2024 In General, Would [...] Bread, 1 Cup Of Whole-grain Or High-fiber Nzmgm-gx-umm Cereal, 1 2 Cup Of Cooked Cereal Such As Oatmeal, Or 1 2 Cup Of Cooked Brown Rice Or Whole Wheat Pasta.) 1-2 Servings Per Day Information not available 05/27/2024 In The Past 7 Days, How Many Servings Of Fried Or High-fat Foods Did You Typically Eat Each Day? (Examples Include Fried Chicken, Fried Fish, [place], [place]ian [place], Potato Chips, [place] Chips, Doughnuts, Creamy Salad Dressings, And Foods [...] Past 7 Days, How Often Have You [place] Sleepy During The Daytime? Rarely Information not [...] Do You Feel Safe At Home? Yes [email or web address] Information not available 05/05/2024 Do You Have A Medical Power Of [place] Warden? No [email or web address] Information not available 05/05/2024 What Was The Date Of Your Most Recent Tobacco Screening? 05/20/2024 [email or web address] Information not available 05/20/2024 What Is Your Current Pack Years? 20-29packyear s Information not available 08/24/2022 Do You Have Any Pets? No [email or web address] Information not available 05/05/2024 What Is Your Relationship Status? Domestic Partner Information not available 05/27/2024 Do You Use Your Seat Belt Or Car Seat Routinely? Yes [email or web address] Information not available 05/05/2024 Are You Sexually Active? Yes Information not available 05/27/2024 Do You Have Smoke And Carbon Monoxide Detectors In Your Home? Yes Information not available 05/05/2024 Are You Passively Exposed To Smoke? No [email or web address] Information no t available 05/05/2024 How Much Tobacco Do You Smoke? 1 PPD Information not available 08/24/2022 Do You Use Sunscreen Routinely? Yes Information not available 05/05/2024 Has Tobacco Cessation Counseling Been Provided? Yes Information not available 08/24/2022 On What Date Was Tobacco Cessation Counseling Provided? 05/20/2024 Information not available 05/20/2024 Do You Have Difficulty Walking Or Climbing Stairs? No [email or web address] Information not available 05/05/2024 Are You Currently In School? No [email or web address] Information not available 05/05/2024 Sex: Unknown Functional [...] available 08/24/2022 Are you currently employed? No [email or web address] Information not available 05/05/2024 Do you have transportation difficulties? No [email or web address] Information not available 05/05/2024 Are you able to walk? YESWOREST [email or web address] Information not available 05/05/2024 Do you have difficulty doing errands alone? No Information not available 05/05/2024 Are you able to care for yourself? Yes [email or web address] Information not available 05/05/2024 Do you have difficulty dressing or bathing? No [email or web address] Information not available 05/05/2024 What is your exercise level? None [email or web address] Information not available 05/05/2024 Mental Status Question Answer Note LastModified by Organizat ion Details LastModified Time Do you feel stressed (tense, restless, nervous, or anxious, or unable to sleep at night)? [id number] [email or web address] Information not available 05/05/2024 Do you have difficulty concentrating, remembering or making decisions? No [email or web address] Information no t available 05/05/2024 Family History [...] Disorder N Anesthesia Complications N Heart Attack (SD) N Anxiety Disorder Y Diabetes Y Bleeding [...] PF, 0.5 mL 1 completed Not Available [facility] 01/02/2024 08:10:35 TST-PPD intradermal 2 completed Not Available [facility] 01/02/2024 08:10:35 COVID-19, mRNA, LNP-S, PF, 100 mcg/0.5mL dose or 50 mcg/0.25mL dose 2 completed Ronit [place] null, [place] - [facility] - [place] & [place] 02/24/2024 12:29:29 COVID-19 vaccine, vector-nr, rS-Ad26, PF, 0.5 mL 1 completed Ronit [place] null, [place] & [place] 02/24/2024 12:29:29 COVID-19, mRNA, LNP-S, bivalent, PF, 50 mcg/0.5 mL or 25mcg/0.25 mL dose 3 completed Ronit [place], [place] & [place] 02/24/2024 12:29:29 COVID-19, mRNA, LNP-S, PF, 50 mcg/0.5 mL 3 completed Ronit [place] null, [place] & [place] 02/24/2024 12:29:29 Past Encounters Encounter ID Performer Location Encounter Start Date Encounter Closed Date Diagnosis/Indication Diagnosis SNOMED-CT Code Diagnosis ICD10 Code Diagnosis Note [id number] Henna Griffin NP [facility] [address] [address] 04/01/2025 10:39:31 04/01/2025 11:19:03 Gastro-esophageal reflux disease with esophagitis 981991298 K21.00 Continues pantoprazo le 40 mg daily for treatment. Recently experienci ng increased dyspepsia and belching. Recommend continued use of PPI as prescribed as well as reflux precaution s. Plan for EGD to further evaluate. Chronic id iopathic constipation 03999656 K59.04 Currently controlled with use of MiraLax and stool softeners. Nausea 869319800 R11.0 daily episodes of nausea and dyspepsia for the past several weeks. She is currently prescribed NSAIDs for arthritis. Recommend EGD to evaluate for erosive gastritis, PUD, other. Burping 640508251 R14.2 Increased belching and dyspepsia over the past several weeks. Recommend continued use of PPI as prescribed . Plan for EGD as above to further evaluate. Blood-tinged feces 35361 95759 28155 K92.1 Episodes of hematochez ia that occurred several weeks ago. Currently denies symptoms. Recommend colonoscop y to further evaluate to rule out underlying colon polyps, lesions, internal hemorrhoid s. Last colonoscop y 02/2018. Family his tory of cancer of colon 132310480 Z80.0 Patient's father with history colon cancer. Plan for colonoscop y as above. [id number] Tutu Johnson MD [facility] [address] [address] 04/13/2025 08:50:17 04/13/2025 10:07:55 Acute cough [id number] 48546674 R05.1 Will obtain an x-ray. If it shows any significan t findings will go ahead and put patient on antibiotic s and steroids. We are currently waiting results. Anxiety 33865598 F41.9 Continue with current regimen. Well contr olled type 2 diabetes mellitus 329659138 E11.9 Patient to continue with regimen that includes Ozempic. At her request will increase Ozempic to help assist in weight loss. Body mass index 30+ - obesity 109151922 E66.9 patient to restart her Ozempic this should help her weight gain journey. She has also been advised to continue with diet and exercise. Health Concerns Section Related Observation LastModified by Organization Detai ls LastModified Time None Recorded Concern Status LastModified by Organization Details LastModified Time None Recorded Payers Encounter Date Sequence Insurance Name Policy Number Policy Reyes Covered Member ID Reyes Member ID Guarantor Name 04/13/2025 2 MEDICAID-[facility] CHO[facility] - FFS/TRADITIO NAL Roberto Rolon [id number] Roberto Terrazasump 04/13/2025 1 [employer] (MEDICARE REPLACEMENT/ ADVANTAGE - PPO) Roberto Moctezuma [id number] Roberto Terrazasump Notes Date Note Type Note Provider Name and Address Organization Details Recorded Time 04/13/2025 text/html SDScomplains of a 2-3 day [...] refill on her alprazolam and her Ozempic. Tutu Johnson MD [address] [place] [address], [id number] [place] [facility] [place] 04/13/2025 10:23:21 OBGyn Episode No OBEpisode recorded.
--- OUTSIDE RECORDS SUMMARY | 2025-05-04 11:03 | XMS_ITS | Referral Summary ---
Author Organization [facility] In iatives Address [address] [place] [address] Care Team Providers Care Home Theater Experience Expert Name Role Phone Unavailable Primary Care Provider Unavailabl e Social History Tobacco Use Types Packs/Day Years Used Date Smoking Tobacco: Never Assessed Comments Unknown Sex and Gender Information Value Date Recorded Sex Assigned at Not on file Legal Sex Female 4:13 PM CDT Gender Identity Not on file Sexual Orientation Not on file Plan of Treatment Not on file Insurance [facility] MEDICARE HMO MEDICAID OF [place]
--- OUTSIDE RECORDS SUMMARY | 2025-05-04 11:03 | XMS_ITS | Clinical Summary ---
Author Organization [facility] In [place]atives Address [address] [place] [address] Care Team Providers Care Manager Pacu Name Role Phone Unavailable Primary Care Provider Unavailabl e Social History Tobacco Use Types Packs/Day Years Used Date Smoking Tobacco: Never Assessed Comments Unknown Sex and Gender Information Value Date Recorded Sex Assigned at Not on file Legal Sex Female 4:13 PM CDT Gender Identity Not on file Sexual Orientation Not on file Plan of Treatment Not on file Insurance [facility] MEDICARE HMO MEDICAID OF [place]
== END 2025-05-04 23:59 | disposition home or self-care (01) ==
LOC: RAD 10:55
PROVIDERS: PCP Emergency Medicine; Visit Provider Physician Assistant
DX: M25.552 Pain in left hip (principal); G89.29 Other chronic pain
CPT/HCPCS: 73502

== ENCOUNTER 2025-05-08 13:23 | Day surgery (SDC) | payer MEDICARE, MEDICAID, SELFPAY ==
--- NOTE | 2025-05-08 13:25 | EXP.PM.HP ---
History of Present Illness *Admission Date: 05/08/25 *Reason for visit:: Degenerative disc disease of lumbar spine; intrathecal refill and reprogram *History of present illness: Same [facility] Disclaimer: The information contained in this section may have been updated after the patient was seen, as this information can be updated by other users. 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 current occupational exposures/hazards: No caffeine: Yes Have you lived/traveled outside [place] in past 30 days?: No Contact w/someone who lives/traveled outside [place] past 30 days?: No Exposure to someone with infectious disease in past 14 days?: No Do you have a fever (greater than 100.4 F or 38 C)?: No Have you tested positive for COVID-19?: No Exposed to someone with COVID-19 in past 14 days?: No Do you have a sore throat?: No Do you have a cough?: No Do you have any weakness?: No Do you have any diarrhea?: No Are you experiencing any unusual bleeding?: No Do you have any muscle aches/pain?: No Do you have any abdominal pain?: No Are you experiencing loss of taste or smell?: No Other Medical History Have you received the Flu Vaccine for this season: No Have you received the Pneumonia Vaccine: No Review of Systems Review of Systems Review of systems:: pertinent systems reviewed and negative unless documented below Review of systems (narrative): Review of Systems: General: No recent weight changes, no fever, no sleep disturbances Respiratory: No cough, no shortness of air, no recurring pulmonary infections Cardiovascular/peripheral vascular: No chest pain, no palpitations, no edema, no shortness of breath Gastrointestinal: No new onset incontinence, normal bowel movements reported Genitourinary: No new onset incontinence Musculoskeletal: Chronic back pain Psychiatric: [Normal mood/affect] Neurological: [Denies weakness in extremities], [denies balance issues] Meds Home Medications and Allergies Home Medications ?Medication ?Instructions ?Recorded ?Confirmed ?Type buspirone 10 mg tablet 10 mg PO BID mood 05/12/21 05/04/25 History estradiol 0.5 mg tablet 0.5 mg PO DAILY HRT 05/12/21 05/04/25 History montelukast 10 mg tablet 10 mg PO PM allergies 05/12/21 05/04/25 History paroxetine HCl 40 mg tablet 40 mg PO DAILY mood 05/12/21 05/04/25 History pantoprazole 40 mg tablet,delayed 40 mg PO DAILY Reflux/Acid reflux 07/07/21 05/04/25 History release lidocaine-prilocaine 2.5 %-2.5 % 1 applic topical .COMPLEX Pain 09/08/21 05/04/25 History topical cream hydroxyzine HCl 50 mg tablet 50 mg PO TID Pain 11/29/21 05/04/25 History buprenorphine 2 mg-naloxone 0.5 mg 1 film sublingual DAILY Pain 01/23/22 05/04/25 History sublingual film aspirin 81 mg tablet,delayed 81 mg PO DAILY Blood thinner 03/23/22 05/04/25 History release metformin 500 mg tablet 500 mg PO DAILY Diabetes 08/03/22 05/04/25 History ondansetron HCl 8 mg tablet 8 mg PO DAILY PRN Stomach Upset 08/03/22 05/04/25 History famotidine 40 mg tablet 40 mg PO DAILY STOMACH 08/21/22 05/04/25 History pravastatin 40 mg tablet 40 mg PO DAILY Cholesterol 08/21/22 05/04/25 History cetirizine 10 mg tablet 10 mg PO DAILY ALLERGIES 11/13/22 05/04/25 History albuterol sulfate 90 mcg/actuation 1 puff inhalation DIRECTED PRN 12/05/22 05/04/25 History aerosol inhaler (ProAir HFA) BREATHING diltiazem HCl 30 mg tablet 30 mg PO ONCE HEART 12/05/22 05/04/25 History amantadine HCl 100 mg tablet 100 mg PO DIRECTED . 11/20/23 06/09/25 History fluticasone propionate 50 50 mcg intranasal DIRECTED 10/15/23 05/04/25 History mcg/actuation nasal Breathing Problems spray,suspension fluticasone fur. 200 mcg-umeclid 1 inh inhalation DAILY 01/07/24 05/04/25 History 62.5 mcg-vilant 25 mcg inhalat.powder (Trelegy Ellipta) urea 40 % topical cream 1 applic topical BID 3 months #60 01/07/24 05/04/25 Rx applic melatonin 5 mg capsule 5 mg PO HS 06/16/24 05/04/25 History semaglutide 2 mg/dose (8 mg/3 mL) 2 mg SQ WEEKLY 06/16/24 05/04/25 History subcutaneous pen injector (Ozempic) trazodone 100 mg tablet 200 mg PO HS 06/16/24 05/04/25 History prednisone 20 mg tablet 20 mg PO BID #10 tabs 11/28/24 05/04/25 Rx lidocaine 5 % topical patch 1 patch topical DAILY #30 ea 01/05/25 05/04/25 Rx pregabalin 150 mg capsule (Lyrica) 150 mg PO TID #90 caps 03/20/25 05/04/25 Rx baclofen 10 mg tablet 10 mg PO TID #90 tabs 04/10/25 05/04/25 Rx New Prescriptions to Start Prescriptions: Allergies Allergy/AdvReac Type Severity Reaction Status Date / Time Sulfa (Sulfonamide Allergy Verified 05/04/25 11:31 Antibiotics) Exam Constitutional Constitutional: no acute distress *Routine HEENT Exam Head: Present normocephalic and atraumatic Eye: Present PERRL ENT: Present mucous membranes moist *Routine Neck Exam Neck: Present supple *Routine Respiratory Exam Respiratory: Present CTA bilaterally *Routine Cardiovascular Exam Cardiovascular: Present RRR *Routine Abdominal Exam Abdominal: Present soft *Routine Rectal Exam Rectal:: deferred *Routine Genitalia Exam Genitalia:: deferred Routine Back/Spine/Pelvis Exam Back/Spine: Present pain with flexion *Routine Skin Exam Skin: Present intact and warm *Routine Neurological Exam Neurological: Present alert and oriented X3 Routine Psychiatric Exam Psychiatric: Present normal affect and normal thought process Assessment and Plan *Assessment and plan (1) Lumbosacral spondylosis with radiculopathy: Problem Comment: Symptomatic improvement with Lyrica, active follow-up with pain management, currently in physical therapy. Advised to continue follow-up with pain management and return as needed however patient prefers to continue to follow-up with Dr. Yuliana Nichole for Lyrica refills. Status: Chronic Category: Medical Code(s): M47.27 - Other spondylosis with radiculopathy, lumbosacral region (2) Chronic lower back pain: Problem Comment: Without evidence of surgical indication. Active follow-up with pain management. Status: Chronic Qualifiers: Back pain laterality: bilateral Sciatica presence: with sciatica Sciatica laterality: bilateral sciatica Qualified Code(s): M54.42 - Lumbago with sciatica, left side; M54.41 - Lumbago with sciatica, right side; G89.29 - Other chronic pain Category: Medical Code(s): M54.50 - Low back pain, unspecified; G89.29 - Other chronic pain Plan Patient has been instructed to contact the clinic with any concerns before the next appointment. Dr. Sethi has reviewed this note and agrees with this plan of care. This note was dictated using voice recognition software and make contain errors or omissions. All injections are used with Lidocaine, Bupivacaine and dexamethasone. Occasionally urine drug screen is needed to verify patient's compliance with our office pain contract. This is ordered based off specific treatments related to chronic pain with the potential to abuse certain medications.
--- NOTE | 2025-05-08 13:27 | P.PCN_ITS ---
Procedure Date: 05/08/25 Time: 14:10 Anesthesiologist:: Ines Christianson APRN Complications:: None Pre-procedure Diagnosis:: Degenerative disc disease of lumbar spine with lumbar radiculopathy symptoms, chronic pain syndrome Post-procedure Diagnosis:: Same Indications for Procedure:: Patient is a pleasant 55-year-old female who presents today for intrathecal refill and reprogram. Today she does rated her pain a 7 out of 10. Patient states from her last visit she had in-depth being hospitalized for pneumonia again. Patient states that she was finally starting to feel better and then feels like she is just backtracked. Patient does state that it feels like it hits her emotionally as well where she just cannot do that much. Patient does state that she has recently had a hip injection but did not really get the full benefit where she was stuck in the bed. Patient is currently managed with bupivacaine 15 mg/mL with a daily dose of 7.8 mg/day. She denies any side effects. She is also on pregabalin 150 mg 3 times a day and baclofen 10 mg 3 times a day. She denies any issues with these medications and do feel like they are helpful. Her Bruno has been reviewed and is appropriate. Physical Exam: General: Alert and oriented x3, no acute distress, pleasant and cooperative Lungs: Respirations even and unlabored, symmetrical chest expansion Eyes: PERRL Musculoskeletal: Flexion and extension of lumbar [spine] somewhat guarded secondary to pain, [antalgic gait noted] Neurological: Speech clear, no gross sensory deficit Procedure Details:: Informed consent was obtained and the risk and benefits of the procedure were explained to the patient. The patient had noninvasive monitoring placed including noninvasive blood pressure cuff and pulse oximeter. Patient's pump was interrogated. The area over the pump was cleansed with chlorhexidine as a cleansing solution. In sterile fashion the pump was accessed with a 22-gauge needle. Approximately 6 mls of the pump solution was removed and discarded appropriately. The pump was then refilled with 20 mL's of bupivacaine 15 mg/mL. The needle was withdrawn and a bandage was placed over the puncture site. The infusion rate was reprogrammed and increased 10%. The patient tolerated well with no complication. Plan and Disposition:: Patient tolerated the procedure well with no complications and was discharged neurologically intact. Patient will return to clinic on or before their next intrathecal refill date. We will see the patient back in the clinic at the next intrathecal refill. Patient has been instructed to contact the clinic with any concerns before the next appointment. Dr. Sethi has reviewed this note and agrees with this plan of care. This note was dictated using voice recognition software and make contain errors or omissions. -- It Is medically necessary for this patient to continue to have their intrathecal pump refilled at regular intervals. This patient had an intrathecal pain pump implanted after meeting criteria of chronic intractable pain for greater than 3 months and failing conservative treatments. Patient has committed and been compliant to the treatment plan and all planned follow up care. Since implantation of the intrathecal pain pump, the patient has had decreased pain and been more functional. Oral medications have been reduced including intake of oral opioids. Patient continues to do well with intrathecal therapy with decrease in pain symptoms and increase in functional status. Stopping intrathecal medications can lead to life threatening withdrawal, seizures, cardi ac arrest, severe pain, and possible . Pumps that are not refilled at regular intervals can be damages and cause and need for replacement. We continually titrate dose and concentration to optimize pain relief and function. We are limited in concentration for certain drugs to safely deliver medications through the pump and stay within the recommendations from the [employer] Consensus Committee Guidelines. Depending on dose and concentration these pumps may need to be refilled sooner than 3 months as we titrate. A UDS is needed to verify patient's compliance with our office pain contract. This is ordered based off specific treatments related to chronic pain with the potential to abuse certain medications.
[2025-05-08 13:43] VITALS: BP 149/94; PULSE 88; RESP 18; O2SAT 92; BMI 30.6
[2025-05-08 14:00] VITALS: BP 155/87; PULSE 88; RESP 18; O2SAT 96
[2025-05-08 14:26] VITALS: BP 148/90; PULSE 90; RESP 18; O2SAT 90
== END 2025-05-08 14:26 | disposition home or self-care (01) ==
PROVIDERS: PCP Emergency Medicine; Visit Provider Nurse Practitioner Family
DX: Z45.1 Encounter for adjustment and management of infusion pump (principal); G89.29 Other chronic pain; M47.27 Other spondylosis with radiculopathy, lumbosacral region; M54.42 Lumbago with sciatica, left side; M54.41 Lumbago with sciatica, right side; E78.5 Hyperlipidemia, unspecified; J44.89 Other specified chronic obstructive pulmonary disease; I10 Essential (primary) hypertension; F17.210 Nicotine dependence, cigarettes, uncomplicated; Z88.2 Allergy status to sulfonamides; Z79.899 Other long term (current) drug therapy; Z79.82 Long term (current) use of aspirin; Z79.84 Long term (current) use of oral hypoglycemic drugs; Z79.85 Long-term (current) use of injectable non-insulin antidiabetic drugs; Z79.52 Long term (current) use of systemic steroids; Z79.891 Long term (current) use of opiate analgesic
CPT/HCPCS: 62370

== ENCOUNTER 2025-05-17 08:17 | Emergency (ER) | payer MEDICARE, MEDICAID, SELFPAY ==
--- OUTSIDE RECORDS SUMMARY | 2025-05-05 20:00 | XMS_ITS | Clinical Summary ---
Author Organization Unknown Care Team Providers Care First Aid Teacher Name Role Phone ALEX INTERSTATE, NARA Unavailable Unav ailable CASSY PT, ROSEMARY Unavailable Unavailable [facility], BRIAN Unavailable Unavailabl e HI PACKAGE DESIGNER, GLORIA Unavailable Unavailable HOLLY OT, EDY Unavailable Unavailable JEAN MARIE RN, HOLLEY Unavailable Unavailable Payers Payer Name Policy Type Policy Number Effective Date Expira tion Date [employer].AUTH [id number] Problems Condition Name Condition Details Condition Category Status Onset Date Resolution Date Last Treatment Date Treating Clinician Comments OTHER SPECIFIED CHRONIC OBSTRUCTIVE PULMONARY DISEASE Active 01-28 00:00: 00 TYPE 2 DIABETES MELLITUS WITH DIABETIC NEUROPATHY, UNSP Active 01-28 00:00: 00 POLYOSTEOART HRITIS, UNSPECIFIED Active 01-28 00:00: 00 SPONDYLOSIS W/O MYELOPATHY OR RADICULOPATH Y, LUMBAR REGION Active 01-28 00:00: 00 CHRONIC PAIN SYNDROME Active 01-28 00:00: 00 OTHER SPECIFIED ANXIETY DISORDERS Active 01-28 00:00: 00 DYSURIA Active 01-28 00:00: 00 SOLITARY PULMONARY NODULE Active 01-28 00:00: 00 OTHER CONSTIPATION Active 01-28 00:00: 00 Irritable bowel syndrome, unspecified Active 01-28 00:00: 00 DISORDER OF THYROID, UNSPECIFIED Active 01-28 00:00: 00 GASTRO-ESOPH AGEAL REFLUX DISEASE WITHOUT ESOPHAGITIS Active 01-28 00:00: 00 OTHER HYPERLIPIDEM IA Active 01-28 00:00: 00 COCAINE ABUSE, UNCOMPLICATE D Active 01-28 00:00: 00 HISTORY OF FALLING Active 01-28 00:00: 00 PERSONAL HISTORY OF NICOTINE DEPENDENCE Active 01-28 00:00: 00 DEPENDENCE ON SUPPLEMENTAL OXYGEN Active 01-28 00:00: 00 GROUP HOME (CURRENT) USE OF ORAL HYPOGLYCEMIC DRUGS Active 01-28 00:00: 00 SOFTWARE CLIENT ARCHITECT (CURRENT) USE OF INHALED STEROIDS Active 03-28 00:00: 00 Allergies, Adverse Reactions, Alerts Allergy Name Allergy Type Status Severity Reaction(s) Onset Date Inactive Date Treating Clinician Comments 'SULFA DRUGS' Propensity to adverse reactions Active 2025-01 09:30:2 3 Medications Ordered Medication Name Filled Medication Name Start Date Stop Date Current Medication? Ordering Clinician Indication Dosage Frequency Signature (SIG) Comments Components hydroxyzine HCl 50 mg tablet 01-26 00:00: 00 01-28 23:59 :00 No [id number] ANXIETY Per instruc tions 3 TIMES DAILY Per instructio ns 3 TIMES DAILY (route: oral) Med Classific ation: Central Nervous System Agents baclofen 5 mg tablet 01-23 00:00: 00 01-28 00:00 :00 No [id number] Per instruc tions TWICE DAILY Per instructio ns TWICE DAILY (route: oral) Med Classific ation: Locomotor System zolpidem 10 mg tablet 01-21 00:00: 00 Yes [id number] Unavailable Per instruc tions EVERY DAY Per instructio ns EVERY DAY (route: oral) Med Classific ation: Central Nervous System Agents albuterol sulfate HFA 90 mcg/actuati on aerosol inhaler 01-19 00:00: 00 Yes [id number] Unavailable Per instruc tions EVERY 4 TO 6 HOURS Per instructio ns EVERY 4 TO 6 HOURS (route: inhalation ) Med Classific ation: Respirato ry Therapy Agents docusate sodium 100 mg capsule 24 00:00: 00 01-28 00:00 :00 No [id number] Unavailable Per instruc tions TWICE DAILY NEEDED Per instructio ns TWICE DAILY NEEDED (route: oral) Med Classific ation: Gastroint estinal Therapy Agents alprazolam 0.5 mg tablet -17 00:00: 00 Yes [id number] Unavailable Per instruc tions EVERY DAY Per instructio ns EVERY DAY (route: oral) Med Classific ation: Central Nervous System Agents metformin 500 mg tablet 01-12 00:00: 00 Yes [id number] Unavailable Per instruc tions EVERY DAY Per instructio ns EVERY DAY (route: oral) Med Classific ation: Endocrine nitrofurant oin monohydrate /macrocryst als 100 mg capsule 01-12 00:00: 00 01-28 00:00 :00 No [id number] Unavailable Per instruc tions EVERY 12 HOURS Per instructio ns EVERY 12 HOURS (route: oral) Med Classific ation: Genitouri nary Therapy lidocaine 5 % topical patch 01-07 00:00: 00 03-28 23:59 :00 No [id number] PAIN Per instruc tions DAILY FOR UP TO 12 HOURS Per instructio ns DAILY FOR UP TO 12 HOURS (route: topical) Med Classific ation: Dermatolo gical pantoprazol e 40 mg tablet,maria eugenia yed release 01-05 00:00: 00 Yes [id number] Unavailable Per instruc tions DAILY Per instructio ns DAILY (route: oral) Med Classific ation: Gastroint estinal Therapy Agents buspirone 15 mg tablet 01-04 00:00: 00 Yes [id number] Unavailable Per instruc tions TWICE DAILY Per instructio ns TWICE DAILY (route: oral) Med Classific ation: Central Nervous System Agents paroxetine 40 mg tablet 01-04 00:00: 00 Yes [id number] Unavailable Per instruc tions AT BEDTIME Per instructio ns AT BEDTIME (route: oral) Med Classific ation: Central Nervous System Agents Trelegy Ellipta 200 mcg-62.5 mcg-25 mcg powder for inhalation 01-03 00:00: 00 Yes [id number] COPD Per instruc tions EVERY DAY Per instructio ns EVERY DAY (route: inhalation ) Med Classific ation: Respirato ry Therapy Agents hydroxyzine HCl 50 mg tablet 12-31 00:00: 00 Yes [id number] Unavailable Per instruc tions THREE TIMES DAILY NEEDED Per instructio ns THREE TIMES DAILY NEEDED (route: oral) Med Classific ation: Central Nervous System Agents pregabalin 150 mg capsule 2-04 00:00: 00 Yes [id number] PAIN Per instruc tions THREE TIMES DAILY Per instructio ns THREE TIMES DAILY (route: oral) Med Classific ation: Central Nervous System Agents albuterol sulfate 2.5 mg/3 mL (0.083 %) solution for nebulizatio n 01-28 00:00: 00 Yes [id number] COPD 1 mL NEEDED 1 mL NEEDED (route: inhalation ) Med Classific ation: Respirato ry Therapy Agents aspirin 81 mg chewable tablet 01-28 00:00: 00 Yes [id number] HEART 1 tablet DAILY 1 tablet DAILY (route: oral) Med Classific ation: Hematolog ical Agents carvedilol 6.25 mg tablet 01-28 00:00: 00 Yes [id number] HEART 1 tablet 2 TIMES DAILY 1 tablet 2 TIMES DAILY (route: oral) Med Classific ation: Cardiovas cular Therapy Agents fluticasone propionate 50 mcg/actuati on nasal spray,suspe nsion 01-28 00:00: 00 Yes [id number] ALLERGIES 1 spray DAILY 1 spray DAILY (route: nasal) Med Classific ation: Respirato ry Therapy Agents oxygen gas for inhalation 01-28 00:00: 00 Yes [id number] OXYGEN 3 Liter DAILY 3 Liter DAILY (route: inhalation ) Med Classific ation: Medical Supplies and Durable Medical Equipment (DME) pravastatin 40 mg tablet 05 00:00: 00 Yes [id number] CHOLESTEROL 1 tablet DAILY 1 tablet DAILY (route: oral) Med Classific ation: Cardiovas cular Therapy Agents baclofen 10 mg tablet 03-29 00:00: 00 Yes [id number] MUSCLE RELAXER 10 mg 3 TIMES DAILY 10 mg 3 TIMES DAILY (route: oral) Med Classific ation: Locomotor System Plan of Treatment Planned Activity Planned Date Details Comments Future Scheduled Test AGENCY MAY PERFORM A RESUMPTION OF CARE VISIT FOLLOWING ANY HOSPITAL ADMISSION. PT TO EVALUATE, OBSERVE / ASSESS, AND MONITOR, PACKAGE DESIGNER TO OBSERVE AND MONITOR, PROVIDE SKILLED THERAPEUTIC INTERVENTION, ACTIVITY, EDUCATION, AND TRAINING TO ADDRESS; [code = AGENCY MAY PERFORM A RESUMPTION OF CARE VISIT FOLLOWING ANY HOSPITAL ADMISSION. PT TO EVALUATE, OBSERVE / ASSESS, AND MONITOR, PACKAGE DESIGNER TO OBSERVE AND MONITOR, PROVIDE SKILLED THERAPEUTIC INTERVENTION, ACTIVITY, EDUCATION, AND TRAINING TO ADDRESS;] Future Scheduled Test PT/PACKAGE DESIGNER TO PROVIDE GAIT TRAINING FOR IMPROVED MOBILITY AND /OR TO NORMALIZE GAIT PATTERN [code = PT/PACKAGE DESIGNER TO PROVIDE GAIT TRAINING FOR IMPROVED MOBILITY AND /OR TO NORMALIZE GAIT PATTERN] Future Scheduled Test PT/PACKAGE DESIGNER TO PROVIDE STAIR TRAINING [code = PT/PACKAGE DESIGNER TO PROVIDE STAIR TRAINING] Future Scheduled Test THERAPEUTI C EXERCISES AND ESTABLISHING A HOME EXERCISE PROGRAM (PT/PACKAGE DESIGNER) [code = THERAPEUTIC EXERCISES AND ESTABLISHING A HOME EXERCISE PROGRAM (PT/PACKAGE DESIGNER)] Future Scheduled Test NEUROMUSCU LAR RE-EDUCATION / BALANCE / POSTURAL CONTROL (PT) [code = NEUROMUSCULAR RE-EDUCATION / BALANCE / POSTURAL CONTROL (PT)] Goal 2025-03-28 Patient Goal - T O BE ABLE TO WALK TO MAILBOX. WALK UP STEPS AGAIN. Goal 2025-05-06 Patient Goal - T O BE ABLE TO WALK TO MAILBOX. WALK UP STEPS AGAIN. Goal Provider Goal - Goal Provider Goal - PT STG: PATIENT WILL DEMONSTRATE REDUCED FALL RISK EVIDENCED BY IMPROVED SELF- SELECTED WALKING SPEED (SSWS CUT SCORE 0.6 TO 0.9 INDICATES MODERATE FALL RISK, 0.6 M/S INDICATES HIGH FALL RISK) FROM 0.6M/S TO 0.7M/S WITHIN 3 WEEKS PT LTG: PATIENT WILL DEMONSTRATE REDUCED FALL RISK EVIDENCED BY IMPROVED SELF- SELECTED WALKING SPEED (SSWS CUT SCORE 0.6 TO 0.9 INDICATES MODERATE FALL RISK, 0.6 M/S INDICATES HIGH FALL RISK) FROM 0.6M/S TO >1.1M/S WITHIN 6 WEEKS Goal Provider Goal - PT LTG: PATIENT WILL DEMONSTRATE IMPROVED ABILITY TO SAFELY NEGOTIATE STAIRS FROM FIRST FLOOR TO BASEMENT USING HANDRAIL WITHIN 6 WEEKS. Goal Provider Goal - PT LTG: PATIENT WILL DEMONSTRATE IMPROVED FUNCTIONAL STRENGTH EVIDENCED BY FIVE TIMES SIT TO STAND TEST (CUT SCORE >12 SECONDS INDICATES AN INCREASED FALL RISK) IMPROVING FROM UNABLE TO 18 SECONDS FOR IMPROVED MOBILITY WITHIN 6 WEEKS. Goal Provider Goal - PT STG: PATIENT WILL DEMONSTRATE REDUCED FALL RISK EVIDENCED BY TUG TEST (CUT SCORE >11 SECONDS INDICATES INCREASED FALL RISK) IMPROVING FROM 18 SECONDS TO 14 SECONDS WITHIN 3 WEEKS PT LTG: PATIENT WILL DEMONSTRATE REDUCED FALL RISK EVIDENCED BY TUG TEST (CUT SCORE >11 SECONDS INDICATES INCREASED FALL RISK) IMPROVING FROM 18 SECONDS TO 10 SECONDS WITHIN 6 WEEKS Reason for Visit INDEPENDENT IN THE HOME Encounters Start Date/Time End Date/Time Encounter Type Admission Type Attending [facility] Care Department Encounter ID Discharge Date Discharge Status Discharge Condition Discharge Reason Percent Goals Met 2025-03-29 00:00:00 2025-05-06 00:00:00 Outpatient RECERTIFIC [facility] [id number] 2025-05-06 00:00:00 DISCHARGE TO HOME OR SELF CARE INDEPENDEN T IN THE HOME AUTH DENIED NON MEDICARE .00
--- OUTSIDE RECORDS SUMMARY | 2025-05-05 20:00 | XMS_ITS | Clinical Summary ---
Author Organization Unknown Care Team Providers Care Landing Man Name Role Phone ALEX INTERSTATE, NARA Unavailable Unav ailable CASSY PT, ROSEMARY Unavailable Unavailable [employer] BUSINESS DIRECTOR, BRIAN Unavailable Unavailabl e HI FILLING LAYER UP, GLORIA Unavailable Unavailable HOLLY OT, EDY Unavailable Unavailable JEAN MARIE RN, HOLLEY Unavailable Unavailable Payers Payer Name Policy Type Policy Number Effective Date Expira tion Date BALTAZAR.O.C.AUTH [id number] Problems Condition Name Condition Details Condition Category [...] ON SUPPLEMENTAL OXYGEN Active 01-28 00:00: 00 [facility] (CURRENT) USE OF ORAL HYPOGLYCEMIC DRUGS Active 01-28 00:00: 00 FILM CLEANER (CURRENT) USE OF INHALED STEROIDS Active 03-28 [...] 01-26 00:00: 00 01-28 23:59 :00 No [id number] ANXIETY Per instruc tions 3 TIMES DAILY Per instructio ns 3 TIMES DAILY (route: oral) Med Classific ation: Central Nervous System Agents baclofen 5 mg tablet 01-23 00:00: 00 01-28 00:00 :00 No [id number] Per instruc tions TWICE DAILY Per instructio ns TWICE DAILY (route: oral) Med Classific ation: Locomotor System zolpidem 10 mg tablet 01-21 00:00: 00 Yes [id number] Unavailable Per instruc tions EVERY DAY Per instructio ns EVERY DAY (route: oral) Med Classific ation: Central Nervous System Agents albuterol sulfate HFA 90 mcg/actuati on aerosol inhaler 01-19 00:00: 00 Yes [id number] Unavailable Per instruc tions EVERY 4 TO 6 HOURS Per instructio ns EVERY 4 TO 6 HOURS (route: inhalation ) Med Classific ation: Respirato ry Therapy Agents docusate sodium 100 mg capsule 24 00:00: 00 01-28 00:00 :00 No [id number] Unavailable Per instruc tions TWICE DAILY NEEDED Per instructio ns TWICE DAILY NEEDED (route: oral) Med Classific ation: Gastroint estinal Therapy Agents alprazolam 0.5 mg tablet -17 00:00: 00 Yes [id number] Unavailable Per instruc tions EVERY DAY Per instructio ns EVERY DAY (route: oral) Med Classific ation: Central Nervous System Agents metformin 500 mg tablet 01-12 00:00: 00 Yes [id number] Unavailable Per instruc tions EVERY DAY Per instructio ns EVERY DAY (route: oral) Med Classific ation: Endocrine nitrofurant oin monohydrate /macrocryst als 100 mg capsule 01-12 00:00: 00 01-28 00:00 :00 No [id number] Unavailable Per instruc tions EVERY 12 HOURS Per instructio ns EVERY 12 HOURS (route: oral) Med Classific ation: Genitouri nary Therapy lidocaine 5 % topical patch 01-07 00:00: 00 03-28 23:59 :00 No [id number] PAIN Per instruc tions DAILY FOR UP TO 12 HOURS Per instructio ns DAILY FOR UP TO 12 HOURS (route: topical) Med Classific ation: Dermatolo gical pantoprazol e 40 mg tablet,maria eugenia yed release 01-05 00:00: 00 Yes [id number] Unavailable Per instruc tions DAILY Per instructio ns DAILY (route: oral) Med Classific ation: Gastroint estinal Therapy Agents buspirone 15 mg tablet 01-04 00:00: 00 Yes [id number] Unavailable Per instruc tions TWICE DAILY Per instructio ns TWICE DAILY (route: oral) Med Classific ation: Central Nervous System Agents paroxetine 40 mg tablet 01-04 00:00: 00 Yes [id number] Unavailable Per instruc tions AT BEDTIME Per instructio ns AT BEDTIME (route: oral) Med Classific ation: Central Nervous System Agents Trelegy Ellipta 200 mcg-62.5 mcg-25 mcg powder for inhalation 01-03 00:00: 00 Yes [id number] COPD Per instruc tions EVERY DAY Per instructio ns EVERY DAY (route: inhalation ) Med Classific ation: Respirato ry Therapy Agents hydroxyzine HCl 50 mg tablet 12-31 00:00: 00 Yes [id number] Unavailable Per instruc tions THREE TIMES DAILY NEEDED Per instructio ns THREE TIMES DAILY NEEDED (route: oral) Med Classific ation: Central Nervous System Agents pregabalin 150 mg capsule 2-04 00:00: 00 Yes [id number] PAIN Per instruc tions THREE TIMES DAILY Per instructio ns THREE TIMES DAILY (route: oral) Med Classific ation: Central Nervous System Agents albuterol sulfate 2.5 mg/3 mL (0.083 %) solution for nebulizatio n 01-28 00:00: 00 Yes [id number] COPD 1 mL NEEDED 1 mL NEEDED (route: inhalation ) Med Classific ation: Respirato ry Therapy Agents aspirin 81 mg chewable tablet 01-28 00:00: 00 Yes [id number] HEART 1 tablet DAILY 1 tablet DAILY (route: oral) Med Classific ation: Hematolog ical Agents carvedilol 6.25 mg tablet 01-28 00:00: 00 Yes [id number] HEART 1 tablet 2 TIMES DAILY 1 tablet 2 TIMES DAILY (route: oral) Med Classific ation: Cardiovas cular Therapy Agents fluticasone propionate 50 mcg/actuati on nasal spray,suspe nsion 01-28 00:00: 00 Yes [id number] ALLERGIES 1 spray DAILY 1 spray DAILY (route: nasal) Med Classific ation: Respirato ry Therapy Agents oxygen gas for inhalation 01-28 00:00: 00 Yes [id number] OXYGEN 3 Liter DAILY 3 Liter DAILY (route: inhalation ) Med Classific ation: Medical Supplies and Durable Medical Equipment (DME) pravastatin 40 mg tablet 05 00:00: 00 Yes [id number] CHOLESTEROL 1 tablet DAILY 1 tablet DAILY (route: oral) Med Classific ation: Cardiovas cular Therapy Agents baclofen 10 mg tablet 03-29 00:00: 00 Yes [id number] MUSCLE RELAXER 10 mg 3 TIMES DAILY 10 mg 3 TIMES DAILY (route: oral) Med Classific ation: Locomotor System Plan of Treatment Planned Activity Planned Date Details Comments Future Scheduled Test AGENCY MAY PERFORM A RESUMPTION OF CARE VISIT FOLLOWING ANY HOSPITAL ADMISSION. PT TO EVALUATE, OBSERVE / ASSESS, AND MONITOR, FILLING LAYER UP TO OBSERVE AND MONITOR, PROVIDE SKILLED THERAPEUTIC INTERVENTION, ACTIVITY, EDUCATION, AND TRAINING TO ADDRESS; [code = AGENCY MAY PERFORM A RESUMPTION OF CARE VISIT FOLLOWING ANY HOSPITAL ADMISSION. PT TO EVALUATE, OBSERVE / ASSESS, AND MONITOR, FILLING LAYER UP TO OBSERVE AND MONITOR, PROVIDE SKILLED THERAPEUTIC INTERVENTION, ACTIVITY, EDUCATION, AND TRAINING TO ADDRESS;] Future Scheduled Test PT/FILLING LAYER UP TO PROVIDE GAIT TRAINING FOR IMPROVED MOBILITY AND /OR TO NORMALIZE GAIT PATTERN [code = PT/FILLING LAYER UP TO PROVIDE GAIT TRAINING FOR IMPROVED MOBILITY AND /OR TO NORMALIZE GAIT PATTERN] Future Scheduled Test PT/FILLING LAYER UP TO PROVIDE STAIR TRAINING [code = PT/FILLING LAYER UP TO PROVIDE STAIR TRAINING] Future Scheduled Test THERAPEUTI C EXERCISES AND ESTABLISHING A HOME EXERCISE PROGRAM (PT/FILLING LAYER UP) [code = THERAPEUTIC EXERCISES AND ESTABLISHING A HOME EXERCISE PROGRAM (PT/FILLING LAYER UP)] Future Scheduled Test NEUROMUSCU LAR RE-EDUCATION / [...] End Date/Time Encounter Type Admission Type Attending [facility] Care Department Encounter ID Discharge Date Discharge Status Discharge Condition Discharge Reason Percent Goals Met 2025-03-29 00:00:00 2025-05-06 00:00:00 Outpatient RECERTIFIC [facility] [id number] 2025-05-06 00:00:00 DISCHARGE TO HOME OR SELF CARE INDEPENDEN T IN THE HOME AUTH DENIED NON MEDICARE .00
--- NOTE | 2025-05-17 08:22 | [facility].EDGENADL ---
Discharge Plan Disposition Patient Disposition: Home, Self-Care Prescriptions Prescriptions: No Action hydroxyzine HCl 50 mg tablet 50 mg PO TID metformin 500 mg tablet 500 mg PO DAILY ondansetron HCl 8 mg tablet 8 mg PO DAILY PRN (Reason: Stomach Upset) pravastatin 40 mg tablet 40 mg PO DAILY famotidine 40 mg tablet 40 mg PO DAILY diltiazem HCl 30 mg tablet 30 mg PO ONCE albuterol sulfate [ProAir HFA] 90 mcg/actuation HFA aerosol inhaler 1 puff inhalation DIRECTED PRN (Reason: BREATHING) amantadine HCl 100 mg tablet 100 mg PO DIRECTED fluticasone propionate 50 mcg/actuation spray,suspension 50 mcg intranasal DIRECTED lidocaine-prilocaine 2.5-2.5 % cream 1 applic TP .COMPLEX Rx Instructions: 1 applic topical 5XDAY; buprenorphine-naloxone 2-0.5 mg film 1 film SL DAILY aspirin 81 mg tablet,delayed release (DR/EC) 81 mg PO DAILY cetirizine 10 mg tablet 10 mg PO DAILY Trelegy Ellipta 200-62.5-25 mcg blister with device 1 inh inhalation DAILY Patient Comments: INHALE 1 PUFF BY MOUTH EVERY DAY urea 40 % cream 1 applic topical BID 90 Days Qty: 60 3RF trazodone 100 mg tablet 200 mg PO HS Patient Comments: TAKE 2 TABLETS BY MOUTH AT BEDTIME melatonin 5 mg capsule 5 mg PO HS Patient Comments: TAKE 1 CAPSULE BY MOUTH EVERY NIGHT AT BEDTIME Ozempic 2 mg/dose (8 mg/3 mL) pen injector 2 mg SQ WEEKLY Patient Comments: INJECT 2MG SUBCUTANEOUSLY ONCE WEEKLY buspirone 10 MG tablet 10 mg PO BID montelukast 10 MG tablet 10 mg PO PM estradiol 0.5 MG tablet 0.5 mg PO DAILY paroxetine HCl 40 MG tablet 40 mg PO DAILY pantoprazole 40 mg tablet,delayed release (DR/EC) 40 mg PO DAILY prednisone 20 mg tablet 20 mg PO BID Qty: 10 0RF lidocaine 5 % adhesive patch,medicated 1 patch topical DAILY Qty: 30 0RF Rx Instructions: leave on most painful area for up to 12 hrs pregabalin [Lyrica] 150 mg capsule 150 mg PO TID Qty: 90 2RF baclofen 10 mg tablet 10 mg PO TID Qty: 90 2RF Referrals Follow up/Referrals: Tutu Vance MD [Primary Care Provider, Medical] - See instructions Activity Restrictions/Add. Instructions Additional Instructions/Restrictions: Return to the emergency department for any new or worsening symptoms Clinical Impressions Clinical Impression: Urgency of urination Instructions Patient Instructions: DI for Urinary Tract Infection (UTI), DI for Urinary Tract Infection in Children Print Language Print Language: Mohawk Discharge ED Provider: Ana Bhat General Adult HPI General Chief complaint: Urogenital-Female Stated complaint: Not urinating Time Seen by Provider: 05/17/25 08:20 History of Present Illness HPI narrative: Patient is a 55-year-old with past medical history significant for COPD with baseline oxygen requirement of 3 L nasal cannula anxiety obesity presents to the emergency department for difficulty with urination. Patient presents not being able to urinate this morning. Denies dysuria or increased urinary frequency or abdominal pain nausea vomiting or fever. Has had similar problems in the past. No constipation or diarrhea. Patient also expresses that she is anxious and is going to be seeing her psychiatrist this Sunday. Denies thoughts of hurting herself or others. Would like to go to rehabilitation to get stronger from a physical therapy perspective however insurance cannot cover it. Of note patient takes Ambien and Xanax in order to sleep. On review of systems patient also notes mild cough for the last 2-1/2 weeks with scant yellow sputum. No respiratory distress or new or worsening symptoms. Related Data Home Medications ?Medication ?Instructions ?Recorded ?Confirmed buspirone 10 mg tablet 10 mg PO BID mood 05/12/21 05/08/25 estradiol 0.5 mg tablet 0.5 mg PO DAILY HRT 05/12/21 05/08/25 montelukast 10 mg tablet 10 mg PO PM allergies 05/12/21 05/08/25 paroxetine HCl 40 mg tablet 40 mg PO DAILY mood 05/12/21 05/08/25 pantoprazole 40 mg tablet,delayed 40 mg PO DAILY Reflux/Acid reflux 07/07/21 05/08/25 release lidocaine-prilocaine 2.5 %-2.5 % 1 applic topical .COMPLEX Pain 09/08/21 05/08/25 topical cream hydroxyzine HCl 50 mg tablet 50 mg PO TID Pain 11/29/21 05/08/25 buprenorphine 2 mg-naloxone 0.5 mg 1 film sublingual DAILY Pain 01/23/22 05/08/25 sublingual film aspirin 81 mg tablet,delayed 81 mg PO DAILY Blood thinner 03/23/22 05/08/25 release metformin 500 mg tablet 500 mg PO DAILY Diabetes 08/03/22 05/08/25 ondansetron HCl 8 mg tablet 8 mg PO DAILY PRN Stomach Upset 08/03/22 05/08/25 famotidine 40 mg tablet 40 mg PO DAILY STOMACH 08/21/22 05/08/25 pravastatin 40 mg tablet 40 mg PO DAILY Cholesterol 08/21/22 05/08/25 cetirizine 10 mg tablet 10 mg PO DAILY ALLERGIES 11/13/22 05/08/25 albuterol sulfate 90 mcg/actuation 1 puff inhalation DIRECTED PRN 12/05/22 05/08/25 aerosol inhaler (ProAir HFA) BREATHING diltiazem HCl 30 mg tablet 30 mg PO ONCE HEART 12/05/22 05/08/25 amantadine HCl 100 mg tablet 100 mg PO DIRECTED . 10/15/23 05/08/25 fluticasone propionate 50 50 mcg intranasal DIRECTED 10/15/23 05/08/25 mcg/actuation nasal Breathing Problems spray,suspension fluticasone fur. 200 mcg-umeclid 1 inh inhalation DAILY 01/07/24 05/08/25 62.5 mcg-vilant 25 mcg inhalat.powder (Trelegy Ellipta) melatonin 5 mg capsule 5 mg PO HS 06/16/24 05/08/25 semaglutide 2 mg/dose (8 mg/3 mL) 2 mg SQ WEEKLY 06/16/24 05/08/25 subcutaneous pen injector (Ozempic) trazodone 100 mg tablet 200 mg PO HS 06/16/24 05/08/25 Previous Rx's ?Medication ?Instructions ?Recorded urea 40 % topical cream 1 applic topical BID 3 months #60 01/07/24 applic prednisone 20 mg tablet 20 mg PO BID #10 tabs 11/28/24 lidocaine 5 % topical patch 1 patch topical DAILY #30 ea 01/05/25 pregabalin 150 mg capsule (Lyrica) 150 mg PO TID #90 caps 03/20/25 baclofen 10 mg tablet 10 mg PO TID #90 tabs 04/10/25 Allergies Allergy/AdvReac Type Severity Reaction Status Date / Time Sulfa (Sulfonamide Allergy Verified 05/04/25 11:31 Antibiotics) [facility] Disclaimer: The information contained in this section may have been updated after the patient was seen, as this information can be updated by other users. 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 current occupational exposures/hazards: No caffeine: Yes Have you lived/traveled outside [place] in past 30 days?: No Contact w/someone who lives/traveled outside [place] past 30 days?: No Exposure to someone with infectious disease in past 14 days?: No Do you have a fever (greater than 100.4 F or 38 C)?: No Have you tested positive for COVID-19?: No Exposed to someone with COVID-19 in past 14 days?: No Do you have a sore throat?: No Do you have a cough?: No Do you have any weakness?: No Do you have any diarrhea?: No Are you experiencing any unusual bleeding?: No Do you have any muscle aches/pain?: No Do you have any abdominal pain?: No Are you experiencing loss of taste or smell?: No Other Medical History Have you received the Flu Vaccine for this season: No Have you received the Pneumonia Vaccine: No ROS Obtained: Yes All systems reviewed & no additional complaints except as documented Physical Exam General General appearance: alert and in no apparent distress Head Head exam: atraumatic Eye Eye exam: Present normal appearance ENT ENT exam: Present normal exam and mucous membranes moist Chest Chest inspection: Present normal inspection and symmetric chest wall rise Respiratory Respiratory exam: Present other (Saturating appropriately on baseline oxygen requirement 3 L nasal cannula, Inspiratory crackles left lower bases no wheezing); Absent respiratory distress or wheezes Cardiovascular Cardiovascular exam: Present regular rate and normal rhythm Abdominal Exam Abdominal exam: Present soft and tenderness (Suprapubic and left flank); Absent distention Extremities Exam Extremities exam: Present normal capillary refill Back Exam Back exam: Present normal inspection and CVA tenderness (L) Neurological Exam Neurological exam: Present alert, oriented X3, CN II-XII intact and normal gait Skin Skin exam: Present warm and dry Medical Decision Making Medical Records Screening: Per USPSTF and CDC recommendations, given the prevalence of disease in our region, it is our hospital?s policy to screen for HIV and viral Hepatitis for all patients aged 18 and over and those with ongoing risk factors. [place] Inquiry Pt receiving controlled substance: No Vital Signs: 05/17/25 08:38 05/17/25 09:00 05/17/25 09:30 Temperature 98.4 F Temperature Source Oral Pulse Rate 81 75 Pulse Rate [Right] 73 Respiratory Rate 22 Blood Pressure 165/107 H 138/98 H Blood Pressure [Right Arm] 176/78 H Blood Pressure Mean [Right Arm] 110 02 Sat by Pulse Oximetry 97 97 97 Oxygen Delivery Method Nasal Cannula Nasal Cannula Oxygen Flow Rate (LPM) 3 3 05/17/25 10:00 05/17/25 10:31 Temperature Temperature Source Pulse Rate 86 73 Pulse Rate [Right] Respiratory Rate Blood Pressure 157/118 H 144/78 H Blood Pressure [Right Arm] Blood Pressure Mean [Right Arm] 02 Sat by Pulse Oximetry 97 98 Oxygen Delivery Method Oxygen Flow Rate (LPM) Lab Data Lab Results 05/17/25 08:30: Urine Color Yellow, Urine Appearance Clear, Urine pH 7.5, Ur Specific [place] <= 1.005, Urine Protein Negative, Urine Glucose (UA) Negative, Urine Ketones Negative, Urine Blood Negative, Urine Nitrate Negative, Urine Bilirubin Negative, Urine Urobilinogen 0.2, Ur Leukocyte Esterase Negative, Urine RBC None, Urine WBC Occasional, Ur Squamous Epith Cells 3-5, Urine Bacteria Trace 05/17/25 09:00: WBC 13.5 H, RBC 4.81, Hgb 13.7, Hct 41.0, MCV 85.2, MCH 28.5, MCHC 33.4, RDW 13.4, Plt Count 233, MPV 11.2 H, Neut % (Auto) 62.0, Lymph % (Auto) 21.8, [place] % (Auto) 11.6 H, Eos % (Auto) 2.6, Baso % (Auto) 0.7, Neut # (Auto) 8.4 H, Lymph # (Auto) 2.9, [place] # (Auto) 1.6 H, Eos # (Auto) 0.4, Baso # (Auto) 0.1, Total Counted 100, Neutrophils % (Manual) 66, Lymphocytes % (Manual) 27, Monocytes % (Manual) 5, Eosinophils % (Manual) 2, Platelet Estimate Normal, RBC Morphology Normal, Sodium 137, Potassium 3.8, Chloride 96 L, Carbon Dioxide 31 H, Anion Gap 13.8, BUN 13, Creatinine 0.70, Estimated Creat Clear 105, Estimated GFR 87, Est GFR ( Amer) 105, Glucose 103 H, Calcium 9.4, Total Bilirubin 0.3, AST 53 H, ALT 36, Alkaline Phosphatase 120, Total Protein 7.5, Albumin 4.4, Globulin 3.1, Albumin/Globulin Ratio 1.4 05/17/25 09:00 05/17/25 09:00 Orders (Tests/Meds): ED MEDICATIONS Discontinued Medications Generic Name Dose Route Start Last Admin Trade Name Freq PRN Reason Stop Dose Admin Acetaminophen 500 mg 05/17/25 08:46 05/17/25 08:50 Acetaminophen 500mg Tab PO 05/17/25 08:47 500 mg ONCE ONE Administration ORDERS Category Date Time Status CXR 2 view (NOT portable) [XR chest 2V] Stat Exams 05/17/25 09:54 Completed Complete Blood Count Auto Diff Stat Lab 05/17/25 09:00 Completed Comprehensive Metabolic Panel Stat Lab 05/17/25 09:00 Completed Urinalysis and Microscopic Stat Lab 05/17/25 08:30 Completed Medical Decision Narrative: In summary, this 55-year-old female presents to the emergency department today with difficulty urinating. On initial evaluation patient is hemodynamically stable saturating appropriately on room air afebrile no acute. Differential diagnosis includes but is not limited to cystitis, urinary tract infection pyelonephritis, constipation, pneumonia bronchitis COPD exacerbation. Based on these concerns, I ordered CBC CMP UA. Patient received Tylenol for treatment. Labs personally reviewed demonstrate leukocytosis, UA without pyuria, nitrates or hematuria, trace bacteruria XR personally interpreted demonstrates no focal opacity. Due to reassuring chest x-ray and lung exam most consistent with baseline COPD low concern for exacerbation at this time based on no respiratory distress and chronic sputum production with no acute change in amount or frequency. UA negative for infection. Patient able to urinate with postvoid residual less than 200 . Patient amendable to discharge with strict return precautions. Critical Care Critical Care Time Critical Care Time: No
--- OUTSIDE RECORDS SUMMARY | 2025-05-17 08:37 | XMS_ITS | Continuity of Care Document ---
Author Organization [facility] Address [address] [place] [address] Care Team Providers Care Consolidator Name Role Phone HENNA GRIFFIN Automotive Glass Technician TUTU JOHNSON Primary Care Provider [phone] Assessment No assessment recorded. Plan of Treatment Reminders Order Date Submit Date Provider Last Modified By Organization Details Last Modified Time Details Appointments OV EST 2024 01:15P M Fransisco Page M.D Not available Not available Not available PROC 30 2024 07:30A M Edvin Jarrell M.D Not available Not available Not available OV EST 15 2024 10:00A M Tutu Johnson MD Not available Not available Not available OV EST 15 2024 02:15P M Henna Griffin NP Not available Not available Not available Lab None record ed. Referral pulmon elizabeth rehab referr al 2024 025 [facility], [address] [facility] [address] [place], [place], [address], 04/30/2025 15:30:27 Procedures None record ed. Surgeries None record ed. Imaging XR, chest, 2 view 2024 025 [facility] ([facility]), [address] [place], [address], 05/01/2025 08:40:43 Medication Orders Reglan 10 mg tablet 2024 025 [facility][id number], [address] [place], [id number], 04/30/2025 18:01:56 levofl oxacin 750 mg tablet 2024 025 [facility] #[id number], [address] [place], [place], [id number], 05/11/2025 11:48:35 ipratr opium 0.5 mg-alb uterol 3 mg (2.5 mg base)/ 3 mL nebuli zation soln 2024 025 [facility] #[id number], [address] [place], [place], [id number], 04/30/2025 14:41:23 Patient TargetsNo targets recorded. Patient Instructions Encounter Date Encounter Id Patient Instructions Last Modified By Organization Details Last Modified Time 04/30/2025 [id number] complete PFT w/ post bronchodilator spirometry* ATHENAFAX Not available 04/30/2025 15:30:30 Reason for Referral Pulmonary Rehab Referral for History of pneumonia Referring Physician: Tutu Johnson, Family Medicine, Encounter Date: 04/30/2025 Results Created Date Observation Date Name Description Value Unit Range Abnormal Flag Note LastModifiedBy Organization Detail LastModifiedTime 04/03/2004/03/2025 CT, chest , w/o contr ast [facility] [address] [place] [address] (Phone ) PAU Rodriguez REPORT Name: ROBERTO MOCTEZUMA : 1969 Accoun t #: [id number] Age: 55 Years Patien t Type: Outpat ient Sex: F Access ion#: [id number] Exam Descri ption: CT CHEST WO [...] ROBERTO MOCTEZUMA : 1969 Accoun t #: [id number] Age: 55 Years Patien t Type: Outpat ient Sex: F Access ion#: [id number] Exam Descri ption: CT CHEST WO [...] ELGARI ED YOUSOF CC Provid er: ALEX SRENA NDE Attend ing Provid er: [facility]I ED YOUSOF [facility] Admitt ing Provid er: [facility] ED YOUSOF [email or web address] [facility] ([facility]) [address] [place] [address] [place], [address], 04/06/2025 10:56:17 04/03/20 25 04/03/2025 imagi ng inter preta tion No observ ation record ed. [facility] ([facility] ) [address] [facility] [place], [address], 04/06/2025 07:57:34 04/13/20 25 04/13/2025 XR, chest , 2 [facility] [address] [place] [address] Phone: Fax: Name: ROBERTO MOCTEZUMA Exam Date: : [birth year] Age 55 years Gender : F Access ion: [id number] Physic lg: KAREEM JOHNSON NDE Facili ty: [facility] Facili ty HSV: Outpat ient [...] HEBERT Admitt ing Provid er: ALEX HEBERT [facility] (Radiology) [address] [place], [address], 04/13/2025 13:55:00 05/01/20 25 04/30/2025 XR, chest , 2 view [facility] [address] [facility] [place] [address] Phone: Fax: Name: ROBERTO MOCTEZUMA Exam Date: 04/30/20 : [birth year] Age 55 years Gender : F Access ion: [id number] Physic lg: KAREEM JOHNSON EMILEE Facili ty: [facility] Facili ty HSV: Outpat ient Exam: CHEST PA ^ LAT EXAMIN ATION: TWO VIEW CHEST XR CLINIC AL INDICA TION: Female , 55 years old. HISTOR Y OF PNEUMO DEBORAH. TECHNI QUE: 2 View, PA and latera l, X-ray of the chest was perfor med. [id number] . COMPAR HAILEY: No prior exam. FINDIN [...] you [facility] Legall y authen ticate d by ROSIBEL DE LUNA MD 2024-04-30 15:23: 14 CC'ed Logic: Orderi ng Provid er: ALEX SCOTTKhushboo NDE CC Provid er: ALEX LEEATU NDE Attend ing Provid er: JOSEPHJag SERNA NDE Referr ing Provid er: ALEX LEEBRYANU NDE Admitt ing Provid er: ALEX LEEGEORGE NDE [facility] (Radiology) [address] , [place], [address], 05/04/2025 12:25:29 05/04/20 25 05/04/2025 imagi ng inter preta tion No observ ation record ed. [facility] [address], [place], [address], 05/04/2025 12:38:40 Result Notes None recorded. Problems Name Problem SNOMED Code Status Onset Date Resolution Date Notes Provider Name and Address Organization Details Recorded Time Blood-ting ed feces 3871405299194 02 Active 2024 Henna Griffin NP [address], [address], [place], [address] , [facility] - [facility] & [place] 5 11:20:19 Abdominal pain 08694290 Active 2021 Not Available [facility] 4 08:10:34 Osteoarthr itis 351850181 Active 2021 Not Available [employer] 4 08:10:34 Tobacco user 697770192 Active 2021 Not Available [facility] 4 08:10:34 Chronic constipati on 548290045 Active 2021 Not Available [facility] 4 08:10:34 Irritable bowel syndrome 62647444 Active 2021 Not Available [facility] 4 08:10:34 Chronic obstructiv e pulmonary disease 90313723 Active 2021 Not Available [facility] 4 08:10:34 Chronic pain syndrome 826989951 Active 2021 Not Available [facility] 4 08:10:34 Asthma 164970183 Active 2021 Not Available [facility] 4 08:10:34 Neuropathy 237079920 Active 2021 Not Available [facility] 4 08:10:34 Mixed anxiety and depressive disorder 703515243 Active 2021 Not Available [facility] 4 08:10:34 Well controlled type 2 diabetes mellitus 387572312 Active Stephan Santacruz null, [place] [facility] & [place] 4 08:44:51 Dyspnea 973938044 Active Stephan Santacruz null, [place] [facility] & [place] 4 08:44:31 Insect sting 291973172 Active Stephan Santacruz null, [place] [facility] & [place] 4 08:45:49 Lower abdominal pain 10862257 Active Stephan Santacruz null, [place] [facility] - [place] & [place] 4 08:45:40 Exacerbati on of moderate persistent asthma 335079356 Active Stephan Santacruz null, [place] [facility] - & [place] 4 08:44:48 Burping 034548228 Active Henna Griffin, JAYLIN [address], [address], [place], [address] , [place] - [facility] - [facility] & [place] 5 11:20:12 Tobacco dependence caused by cigarettes 0434111051309 9107 Active Stephan Santacruz null, [place] [facility] & [place] 4 08:44:55 Finding of tobacco use and exposure 764777269 Active Stephan Santacruz null[place] [facility] & [place] 4 08:46:08 Clostridio ides difficile infection 816786388 Active Stephan Santacruz null, [place] [facility] & [place] 4 08:43:49 Swollen abdomen 80159467 Active Stephan Santac[place] null, [place] [facility] & [place] 4 08:44:57 Irritable bowel syndrome characteri zed by constipati on 458151547 Active Stephan Santacruz null[place] [facility] & [place] 4 08:45:43 Esophageal dysphagia 95089421 Active Stephan Santacruz null, [place] [facility] - [place] & [place] 4 08:44:40 Fall Active Stephan Santac[place] null[place] [facility] [place] & [place] 4 08:46:20 Finding of gastrointe stinal tract gas 862516249 Active Stephan Santacruz null[place] & [place] 4 08:46:12 Chronic pain 72882527 Active Stephan Santacruz null, [place] [facility] & [place] 4 08:43:44 Gastritis 3690131 Active Stephan Santac[place] & [place] 4 08:46:05 Alteration in bowel eliminatio n 073047388 Active Stephan Santacruz [place] & [place] 4 08:43:22 Generalize d abdominal pain 216416016 Active Stephan Santacruz [place] [facility] [place] & [place] 4 08:46:26 Acute back pain with sciatica 125344715 Active Stephan Santacruz null[place] & [place] 4 08:43:13 Idiopathic peripheral autonomic neuropathy 66709668 Active Stephan Santacruz null, [place] & [place] 4 08:46:40 Pneumonia 016966334 Active Stephan Santacruz null[place] & [place] 4 08:45:02 Pain of multiple joints 88864303 Active Stephan Santacruz null[place] & [place] 4 08:45:18 Abdominal bloating 624502660 Active Stephan Santac[place] & [place] 4 08:43:10 Chest pain 01979510 Active Stephan Santac[place] & [place] 4 08:43:37 Chronic idiopathic constipati on 01324503 Active Stephan Santacruz [place] & [place] 4 08:43:41 Moderate persistent asthma 120105874 Active Stephan Santacruz null, [place] - [facility] - [facility] & [place] 4 08:45:21 Exogenous hyperlipid emia 496628377 Active Stephan Santacruz null, [place] [facility] - [facility] & [place] 4 08:46:23 Allergic rhinitis 13684727 Active Stephan Santacruz null, [place] [facility] - & [place] 4 08:43:17 History of drug abuse 866969009 Active Stephan Santacruz null, [place] - [facility] - & [place] 4 08:46:29 Gastro-eso phageal reflux disease with esophagiti s 699093631 Active Stephan Santacruz null, [place] - [facility] - & [place] 4 08:46:01 Injury of nose 78196181 Active Stephan Santacruz null, [place] - [facility] - & [place] 4 08:45:53 Disturbanc e in sleep behavior 42334410 Active Stephan Santacruz null, [place] - [facility] - & [place] 4 08:44:24 Cocaine dependence in remission 422012836 Active Stephan Santacruz null, [place] - [facility] - & [place] 4 08:43:53 Osteoarthr itis of multiple joints 804239435 Active Stephan Santacruz null, [place] - [facility] - & [place] 4 08:45:04 Fatigue 78720673 Active Stephan Santacruz null, [place] - [facility] - & [place] 4 08:46:16 Daytime somnolence 180932322557 Active Stephan Santacruz null, [place] - [facility] - [facility] & [place] 4 08:44:07 Nausea [id number] Nathaniel Griffin NP [address] [place] [address] Drive, [address], [place], [address] , [place] - [facility] - [facility] & [place] 5 11:20:00 Gastroesop hageal reflux disease 167452761 Active Stephan Santacruz null, [place] - [facility] - & [place] 4 08:45:59 CT of chest abnormal 4028226396566 9102 Active Stephan Santacruz [place], [place] [facility] - & [place] 4 08:44:03 Hyperlipid emia 25576587 Active Stephan Santacruz null, [place] [facility] - & [place] 4 08:46:34 Type 2 diabetes mellitus without complicati on 885641709 Active Not Available [facility] 4 08:10:34 Anxiety 00261441 Active Stephan Santacruz null, [place] - [facility] - & [place] 4 08:43:26 Obstructiv e sleep apnea syndrome 19065458 Active Stephan Santacruz null, [place] [facility] - & [place] 4 08:45:09 Nodule of lung 396531184 Active Stephan Santacruz null, [place] [facility] - & [place] 4 08:45:12 Diarrhea 25171318 Active Stephan Santacruz null, [place] [facility] - & [place] 4 08:44:14 Binge drinker 025606509 Active Stephan Santacruz null, [place] [facility] - & [place] 4 08:43:30 Epigastric pain 04491438 Active Stephan Santacruz null, [place] [facility] - & [place] 4 08:44:36 Mild intermitte nt asthma 593908630 Active Stephan Santacruz null, [place] [facility] - & [place] 4 08:45:29 Lumbar spondylosi s 269582974 Active Stephan Santacruz null, [place] [facility] - & [place] 4 08:45:35 Constipati on 06256421 Active Stephan Santacruz null, [place] [facility] - & [place] 4 08:43:57 Dysphagia 99444715 Active 2022 Stephan Santacruz null, [place] [facility] - & [place] 4 08:44:28 Diarrhea of presumed infectious origin 83522324 Active 2022 Stephan Santacruz null, [place] [facility] - & [place] 4 08:44:18 Infection by Strongyloi jeni 9627123 Active 2022 Stephan zapata, [place] - [facility] - [place] & [place] 4 08:46:43 Gastroesop hageal reflux disease without esophagiti s 039218883 Active 2022 Not Available [facility] 4 08:10:34 Obesity 122198200 Active 2023 Tutu Johnson MD [address] [facility], [place], [address] , [place] - [facility] - [place] & [place] 4 10:22:51 Notes:Some problems listed i n Document: #[id number] could not be added to this patient's chart. Please review this document and add these problems to the patient's chart manually as needed. Problem Notes None recorded. Procedures Surgical History Date Name Laterality Status Provider Name and Address Organization Details Recorded Time 2024 6 Minute Walk Test completed Trini RODRIGEZ - [facility] - [place] & [place] 5 12:06:58 2023 Medicare Annual Wellness Visit Health Risk Assessment completed Saba RODRIGEZ - [facility] - [place] & [place] 4 09:13:41 2023 Nasal Endoscopy completed Elton RODRIGEZ - [facility] - [place] & [place] 4 14:11:07 2022 Fiberoptic Laryngoscopy completed Elton RODRIGEZ - [facility] - [place] & [place] 3 15:34:17 2017 colonoscopy completed Henna Griffin NP [address] [facility], [address], [place], [address], [place] - [facility] - [place] & [place] 5 13:08:30 2017 esophagogastroduodenoscopy completed Alicia Griffin NP [address] [facility], [address], [place], [address], [place] - [facility] - [place] & [place] 5 13:08:39 2016 Unlisted px dentalvlr strux completed Yvonne Levy [place] - [facility] - [place] & [place] 2 12:01:52 2015 esophagogastroduodenoscopy completed Ariella Levy [facility] & [place] 2 12:01:40 2007 [facility] [place] 2 11:59:20 Sinus Surgery completed Irma Jin [facility] & [place] 4 13:42:39 parathyroidectomy completed [facility] & [place] 2 12:00:51 Imaging Results None recorded. Procedure [...] vomiting mild moderate moderate Not available 08/24/2022 12660 8003 SNOMED Not Available [facility] 2 14:26:01 08899 codeine medicatio n nausea mild low 08/24/2022 2670 RxNorm Bria Colon null, [facility] & [place] 5 12:54:11 Medications Name Sig Start Date Stop Date [...] 1 TABLET BY MOUTH TWICE DAILY DIRECTED 2024 active Not Available Not Available Not Avai lable doxycycline hyclate 100 mg capsule TAKE 1 [...] completed Not Available Not Available Not Available aspirin 81 mg tablet,maria eugenia yed release [...] tablet TAKE 1 TABLET BY MOUTH DAILY 05/11 completed Not Available Not Available Not Available zolpidem 10 mg tablet TAKE 1 [...] completed Not Available Not Available Not Available metoclopram jayy 10 mg tablet TAKE 1 TABLET BY MOUTH 4 TIMES A DAY NEEDED active Not Available Not Available No t Available amoxicillin 875 mg-potassiu m clavulanate 125 [...] and Address Organization Details Last Updated DateTime 154.94 cm 31.1 kg/m2 68870.0 2 g 97.4 [degF] 94 % 94 % 2 L/min 85 /min 16 /min 124 mm[Hg] 87 mm[Hg] Saba WATERMAN [facility] [place] & [place] 14:40:08 Social History Question Answer Notes LastModified by Organizat ion Details LastModified Time Tobacco Smoking Status Former Smoker Saba Levy [facility], [place] [facility] & [place] 12/29/2024 14:30:53 Do You Have An Advance Directive? No [email or web address] Information n ot available 05/05/2024 Do You Wear A Helmet When Biking? Yes [email or web address] Information not available 05/05/2024 Are You Blind Or Do You Have Difficulty Seeing? No [email or web address] Information n ot available 05/05/2024 What Is Your Level Of Caffeine Consumption? None [email or web address] Information not available 05/05/2024 In The 14 Days Before Symptom Onset, Have You Had Close Contact With A Laboratory-confirm ed COVID-19 While That Case Was Ill? No [email or web address] Information n ot available 05/05/2024 In The 14 Days Before Symptom Onset, Have You Had Close Contact With A Person Who Is Under Investigation For COVID-19 While That Person Was Ill? No [email or web address] Information not available 05/05/2024 Have You Been To An Area Known To Be High Risk For COVID-19? No [email or web address] Information not available 05/05/2024 Are You Deaf Or Do You Have Serious Difficulty Hearing? No [email or web address] Information not available 05/05/2024 What Type Of Diet Are You Following? REGULAR [email or web address] Information n ot available 05/05/2024 Have You Processed Blood Or Body Fluids From An Ebola Virus Disease Patient Without Appropriate PPE? No [email or web address] Information not available 05/05/2024 Do You Reside In Or Have You Traveled To An Area Where Ebola Virus Transmission Is Active? No Information not available 05/05/2024 Have There Been Any Changes To Your Family Or Social Situation? No Information no t available 05/05/2024 What Is The Fluoride Status Of Your Home? Unknown Information not available 05/05/2024 When Did You Quit Smoking? 1-5yearssince lastcigarette Information not available 12/29/2024 Are There Any Guns Present In Your Home? No [email or web address] Information not available 05/05/2024 Have You Recently Or Are You Planning To Travel To An Area With Zika Virus? No [email or web address] Information not available 05/05/2024 Do You Use Insect Repellent Routinely? Yes [email or web address] Information not available 05/05/2024 In General, Would You Say Your Health Is Good Information not available 05/27/2024 How Would You Describe The Condition Of Your Mouth And Teeth i ncluding False Teeth Or Dentures? Good Information n [...] Bread, 1 Cup Of Whole-grain Or High-fiber Tnrtj-wr-eqw Cereal, 1 2 Cup Of Cooked Cereal Such As Oatmeal, Or 1 2 Cup Of Cooked Brown Rice Or Whole Wheat Pasta.) 1-2 Servings Per Day Information not available 05/27/2024 In The Past 7 Days, How Many Servings Of Fried Or High-fat Foods Did You Typically Eat Each Day? (Examples Include Fried Chicken, Fried Fish, Dun[place], Hungarian Moore, Potato Chips, Lostant Chips, Doughnuts, Creamy Salad Dressings, And Foods [...] Past 7 Days, How Often Have You Schlater Sleepy During The Daytime? Rarely Information not [...] Do You Feel Safe At Home? Yes [email or web address] Information not available 05/05/2024 Do You Have A Medical Power Of Taper Printed Circuit Layout? No [email or web address] Information not available 05/05/2024 What Was The Date Of Your Most Recent Tobacco Screening? 05/20/2024 [email or web address] Information not available 05/20/2024 What Is Your Current Pack Years? 20-29packyear s Information not available 08/24/2022 Do You Have Any Pets? No [email or web address] Information not available 05/05/2024 What Is Your Relationship Status? Domestic Partner Information not available 05/27/2024 Do You Use Your Seat Belt Or Car Seat Routinely? Yes [email or web address] Information not available 05/05/2024 Are You Sexually Active? Yes Information not available 05/27/2024 Do You Have Smoke And Carbon Monoxide Detectors In Your Home? Yes [email or web address] Information not available 05/05/2024 Are You Passively Exposed To Smoke? No [email or web address] Information no t available 05/05/2024 How Much Tobacco Do You Smoke? 1 PPD Information not available 08/24/2022 Do You Use Sunscreen Routinely? Yes [email or web address] Information not available 05/05/2024 Has Tobacco Cessation Counseling Been Provided? Yes Information not available 08/24/2022 On What Date Was Tobacco Cessation Counseling Provided? 05/20/2024 [email or web address] Information not available 05/20/2024 Do You Have Difficulty Walking Or Climbing Stairs? No [email or web address] Information not available 05/05/2024 Are You Currently In School? No [email or web address] Information not available 05/05/2024 Sex: Unknown Functional [...] 05/05/2024 Do you have transportation difficulties? No [email or web address] Information not available 05/05/2024 Are you able to walk? YESWOREST [email or web address] Information not available 05/05/2024 Do you have difficulty doing errands alone? No Information not available 05/05/2024 Are you able to care for yourself? Yes Information not available 05/05/2024 Do you have difficulty dressing or bathing? No [email or web address] Information not available 05/05/2024 What is your exercise level? None [email or web address] Information not available 05/05/2024 Mental Status Question Answer Note LastModified by Organizat ion Details LastModified Time Do you feel stressed (tense, restless, nervous, or anxious, or unable to sleep at night)? [id number] [email or web address] Information not available 05/05/2024 Do you have difficulty concentrating, remembering or making decisions? No [email or web address] Information no t available 05/05/2024 Family History [...] History Condition Response None N Emphysema N Glaucoma N Depression Y Anesthesia Complications N Anxiety Disorder Y Arthritis N Hearing Loss N Acid Reflux (GERD) Y Cancer N Stroke N Headaches N Fibromyalgia N Speech Delay N Kidney Disease N Allergies/Hayfever N Heart Problems N Heart Conditions N Migraines N Thyroid Problems Y Developmental Delay N Anemia N Immune System Disorder N Heart Attack ([place]) N Diabetes Y Bleeding Disorder N Tuberculosis [...] PF, 0.5 mL 1 completed Not Available [facility] 01/02/2024 08:10:35 TST-PPD intradermal 2 completed Not Available [facility] 01/02/2024 08:10:35 COVID-19, mRNA, LNP-S, PF, 100 mcg/0.5mL dose or 50 mcg/0.25mL dose 2 completed Ronit Lugo null, [place] - [facility] - [place] & [place] 02/24/2024 12:29:29 COVID-19 vaccine, vector-nr, rS-Ad26, PF, 0.5 mL 1 completed Ronit [place] null, [place] - [facility] - [place] & [place] 02/24/2024 12:29:29 COVID-19, mRNA, LNP-S, bivalent, PF, 50 mcg/0.5 mL or 25mcg/0.25 mL dose 3 completed Ronit Brittney null, [place] - [facility] - [place] & [place] 02/24/2024 12:29:29 COVID-19, mRNA, LNP-S, PF, 50 mcg/0.5 mL 3 completed Ronit [place] null, [place] - [facility] - [place] & [place] 02/24/2024 12:29:29 Past Encounters Encounter ID Performer Location Encounter Start Date Encounter Closed Date Diagnosis/Indication Diagnosis SNOMED-CT Code Diagnosis ICD10 Code Diagnosis Note [id number] Henna Griffin NP [facility] [address] [place] [address] 04/01/2025 10:39:31 04/01/2025 11:19:03 Gastro-esophageal reflux disease with esophagitis 192383817 K21.00 Continues pantoprazo le 40 mg daily for treatment. Recently experienci ng increased dyspepsia and belching. Recommend continued use of PPI as prescribed as well as reflux precaution s. Plan for EGD to further evaluate. Chronic id iopathic constipation 47770498 K59.04 Currently controlled with use of MiraLax and stool softeners. Nausea 631669194 R11.0 daily episodes of nausea and dyspepsia for the past several weeks. She is currently prescribed NSAIDs for arthritis. Recommend EGD to evaluate for erosive gastritis, PUD, other. Burping 488472772 R14.2 Increased belching and dyspepsia over the past several weeks. Recommend continued use of PPI as prescribed . Plan for EGD as above to further evaluate. Blood-tinged feces 57753 21954 58851 K92.1 Episodes of hematochez ia that occurred several weeks ago. Currently denies symptoms. Recommend colonoscop y to further evaluate to rule out underlying colon polyps, lesions, internal hemorrhoid s. Last colonoscop y 02/2018. Family his tory of cancer of colon 195180158 Z80.0 Patient's father with history colon cancer. Plan for colonoscop y as above. [id number] Tutu Johnson MD [address] [place] [address] 04/13/2025 08:50:17 04/13/2025 10:07:55 Acute cough [id number] 33188616 R05.1 Will obtain an x-ray. If it shows any significan t findings will go ahead and put patient on antibiotic s and steroids. We are currently waiting results. Anxiety 82435330 F41.9 Continue with current regimen. Well contr olled type 2 diabetes mellitus 059730725 E11.9 Patient to continue with regimen that includes Ozempic. At her request will increase Ozempic to help assist in weight loss. Body mass index 30+ - obesity 028373866 E66.9 patient to restart her Ozempic this should help her weight gain journey. She has also been advised to continue with diet and exercise. [id number] Tutu Johnson MD [address] [place] [address] 04/30/2025 14:26:14 04/30/2025 14:44:39 History of pneumonia [id number] Z87.01 will obtain chest x-ray and start patient on Levaquin.I am going to refer her for pulmonary rehab. Nausea [id number] R11.0 Patient has been advised to try Reglan for her chronic nausea. Obstructive emphysema [id number] J43.9 Chronic ob structive pulmonary disease [id number] J44.9 Patient to continue with oxygen at this time. Health Concerns Section Related Observation LastModified by Organization Detai ls LastModified Time None Recorded Concern Status LastModified by Organization Details LastModified Time None Recorded Payers Encounter Date Sequence Insurance Name Policy Number Policy Reyes Covered Member ID Reyes Member ID Guarantor Name 04/30/2025 2 MEDICAID-[facility] [employer] - FFS/TRADITIO JEWEL Rolon [id number] Roberto Moctezuma 04/30/2025 1 [id number] (MEDICARE REPLACEMENT/ ADVANTAGE - PPO) Roberto Tolbert Rhianna [id number] Roberto Moctezuma Notes Date Note Type Note Provider Name and Address Organization Details Recorded Time 04/30/2025 text/html patient presents today to follow-up from hospital admission. Patient was admitted for pneumonia 2 weeks ago. She states that she was sent home on antibiotics however she has continued to cough. Cough is productive of yellowish sputum. Tutu Johnson MD [address] [place] [address], [phone] [place] [address] & [place] 04/30/2025 15:22:50 OBGyn Episode No OBEpisode recorded.
--- OUTSIDE RECORDS SUMMARY | 2025-05-17 08:37 | XMS_ITS | Clinical Summary ---
Author Organization Healthcare Address [address] [place] [address] Care Team Providers Care Knuckle Bender Name Role Phone Arline Roberts Primary Care Provider [phone] Encounters Date Type Department Care Team Description 03/25/2025 Abstract D[facility] entry manager [facility] [address] [id number] Dental, Surgeon, from Last 3 Months Family [...] Screening 1969 [facility]-Medicare Annual Wellness (AWV) 1969 [facility]-/Child/Adol SDOH Screenings 1969 [facility]- SDOH Screenings 1987 [facility]-Adult SDOH Screenings 1987 [facility]-DTaP,Tdap,and Td Vaccines (1 - Tdap) 1988 [facility]-Hepatitis B Vaccines (1 of 3 - 19+ 3-dose series) 1988 CT Colonography 2014 Colonoscopy 2014 FIT-DNA 2014 FIT 2014 FOBT 2014 Sigmoidoscopy 2014 [facility]-Colorectal Cancer Screening 2014 [facility]-Breast Cancer Screening 2019 [facility]-Zoster Vaccines (1 of 2) 2019 [facility]-Influenza Vaccine (Season Ended) 2025 [id number] Vaccine Completed 07/25/2024, 10/25/2023, 05/11/2023, Additional history [...] patient's age to complete this topic Insurance [facility] MEDICARE Care Teams Knuckle Bender Relationship Specialty Start Date End Date Arline Roberts PA [address] [place] [address] PCP - General 04/08/21
--- OUTSIDE RECORDS SUMMARY | 2025-05-17 08:37 | XMS_ITS | Continuity of Care Document ---
Author Organization [facility] Address [address] [place] [address] Care Team Providers Care Fire Sprinkler Fitter Name Role Phone HENNA GRIFFIN Acid Adjuster TUTU JOHNSON Primary Care Provider Assessment Encounter Date Assessment Date Assessment LastModified by Organization Details LastModified Time 05/11/2025 05/11/2025 Patient had mammogram today. [email or web address] Not available 05/11/2025 12:17:17 Plan of Treatment Reminders Order Date Submit Date Provider Last Modified By Organization Details Last Modified Time Details Appointments OV EST 15 025 01:15PM Fransisco Page M.D Not available Not available Not available PROC 30 025 07:30AM Edvin Jarrell M.D Not available Not available Not available OV EST 15 025 10:00AM Tutu Johnson MD Not available Not available Not available OV EST 025 02:15PM Henna Griffin NP Not available Not available Not available Lab None record ed. Referral None record ed. Procedures None record ed. Surgeries None record ed. Imaging None record ed. Medication Orders None record ed. Patient TargetsNo targets recorded. Patient InstructionsNo instructions recorded. Reason for Referral None Reported. Results Created Date Observation Date Name Description Value Unit Range Abnormal Flag Note LastModifiedBy Organization Detail LastModifiedTime 04/13/2004/13/2025 XR, chest , 2 view [facility] [address] [place] [address] Phone: Fax: Name: ROBERTO MOCTEZUMA Exam Date: : [birth year] Age 55 years Gender : F Access ion: [id number] Physic lg: KAREEM JOHNSON Facili ty: [facility] Facili ty HSV: Outpat ient [...] you for referr ing ROBERTO MOCTEZUMA to [facility]. Legall y authen ticate d by AMADA TINOCO MD 04-13 10:14: 40 CC'ed Logic: Orderi ng Provid er: ALEX HEBERT CC Provid er: ALEX HEBERT Attend ing Provid er: ALEX HEBERT Referr ing Provid er: ALEX HEBERT Admitt ing Provid er: ALEX HEBERT [facility] (Radiology) [address] [place], [address], 04/13/2025 13:55:00 05/01/20 25 04/30/2025 XR, chest , 2 view [facility] [place] [address] [address] Phone: Fax: Name: ROBERTO MOCTEZUMA Exam Date: 04/30/20 : [birth year] Age 55 years Gender : F Access ion: [id number] Physic lg: KAREEM JOHNSON Facili ty: [facility] Facili ty HSV: Outpat ient Exam: CHEST PA ^ LAT EXAMIN ATION: TWO VIEW CHEST XR CLINIC AL INDICA TION: Female , 55 years old. HISTOR Y OF PNEUMO DEBORAH. TECHNI QUE: 2 View, PA and latera l, X-ray of the chest was perfor med. [id number] . COMPAR HAILEY: No prior exam. FINDIN [...] [facility] authen ticate d by ROSIBEL DE LUNA MD 2024-04-30 15:23: 14 CC'ed Logic: Orderi ng Provid er: ALEX SERNA NDE CC Provid er: ALEX HEBERT Attend ing Provid er: ALEX HEBERT Referr ing Provid er: ALEX HEBERT Admitt ing Provid er: ALEX HEBERT [facility] (Radiology) [address], [place], [address], 05/04/2025 12:25:29 05/04/20 25 05/04/2025 imagi ng inter preta tion No observ ation record ed. [email or web address] [address], [place], [address], 05/04/2025 12:38:40 Result Notes None recorded. Problems Name Problem SNOMED Code Status Onset Date Resolution Date Notes Provider Name and Address Organization Details Recorded Time Blood-ting ed feces 7836383973514 02 Active 2024 Henna Griffin NP [address], [address], [place], [address] , [place] 5 11:20:19 Abdominal pain 37945343 Active 2021 Not Available [facility] 4 08:10:34 Osteoarthr itis 915410743 Active 2021 Not Available [facility] 4 08:10:34 Tobacco user 860158681 Active 2021 Not Available [facility] 4 08:10:34 Chronic constipati on 750231247 Active 2021 Not Available [facility] 4 08:10:34 Irritable bowel syndrome 50508361 Active 2021 Not Available [facility] 4 08:10:34 Chronic obstructiv e pulmonary disease 33533005 Active 2021 Not Available [facility] 4 08:10:34 Chronic pain syndrome 069097391 Active 2021 Not Available [facility] 4 08:10:34 Asthma 948201771 Active 2021 Not Available [facility] 4 08:10:34 Neuropathy 805325548 Active 2021 Not Available [facility] 4 08:10:34 Mixed anxiety and depressive disorder 877531310 Active 2021 Not Available [facility] 4 08:10:34 Well controlled type 2 diabetes mellitus 930887899 Active Stephan Santacruz null, [place] 4 08:44:51 Dyspnea 994839214 Active Stephan Santac[place] 4 08:44:31 Insect sting 852868499 Active Stephan Santac[place] 4 08:45:49 Lower abdominal pain 20788513 Active Stephan [place]ac[place] 4 08:45:40 Exacerbati on of moderate persistent asthma 783927055 Active Stephan Santac[place] 4 08:44:48 Burping 948901484 Active Henna Griffin NP [address], [address], [place], [address] , [place] 5 11:20:12 Tobacco dependence caused by cigarettes 2413112311393 9107 Active Stephan Santac[place] 4 08:44:55 Finding of tobacco use and exposure 798392250 Active Stephan [place]ac[place] 4 08:46:08 Clostridio ides difficile infection 881024791 Active Stephan [place] 4 08:43:49 Swollen abdomen 65947310 Active Stephan [place]ac[place] 4 08:44:57 Irritable bowel syndrome characteri zed by constipati on 405335184 Active Stephan [place] 4 08:45:43 Esophageal dysphagia 74292091 Active Stephan [place]ac[place] 4 08:44:40 Fall Active Stephan [place]ac[place] 4 08:46:20 Finding of gastrointe stinal tract gas 776483534 Active Stephan [place]ac[place] 4 08:46:12 Chronic pain 66210584 Active Stephan [place]ac[place] 4 08:43:44 Gastritis 5878902 Active Stephan [place]ac[place] 4 08:46:05 Alteration in bowel eliminatio n 164724132 Active Stephan [place] [facility] & [place] 4 08:43:22 Generalize d abdominal pain 036744368 Active Stephan Santac[place] [facility] & [place] 4 08:46:26 Acute back pain with sciatica 970401136 Active Stephan [place]ac[place] [facility] & [place] 4 08:43:13 Idiopathic peripheral autonomic neuropathy 19380697 Active Stephan [place]ac[place] [facility] & [place] 4 08:46:40 Pneumonia 567855605 Active Stephan [place]ac[place] [facility] & [place] 4 08:45:02 Pain of multiple joints 95915768 Active Stephan Santac[place] [facility] & [place] 4 08:45:18 Abdominal bloating 706510330 Active Stephan [place]ac[place] [facility] & [place] 4 08:43:10 Chest pain 08366876 Active Stephan Santac[place] [facility] & [place] 4 08:43:37 Chronic idiopathic constipati on 55613557 Active Stephan [place]ac[place] [facility] & [place] 4 08:43:41 Moderate persistent asthma 823163651 Active Stephan Santac[place] [facility] & [place] 4 08:45:21 Exogenous hyperlipid emia 668393611 Active Stephan [place]ac[place] [facility] & [place] 4 08:46:23 Allergic rhinitis 77938543 Active Stephan [place] [facility] & [place] 4 08:43:17 History of drug abuse 594999149 Active Stephan [place]ac[place] [facility] & [place] 4 08:46:29 Gastro-eso phageal reflux disease with esophagiti s 573809224 Active Stephan [place]ac[place] 4 08:46:01 Injury of nose 17654814 Active Stephan Santacruz null, [place] - [facility] - [place] & [place] 4 08:45:53 Disturbanc e in sleep behavior 70122960 Active Stephan Santacruz null, [place] - [facility] - [place] & [place] 4 08:44:24 Cocaine dependence in remission 754394666 Active Stephan Santacruz null, [place] - [facility] - [place] & [place] 4 08:43:53 Osteoarthr itis of multiple joints 678379755 Active Stephan Santacruz null, [place] - [facility] - & [place] 4 08:45:04 Fatigue 72278501 Active Stephan Santacruz null, [place] - [facility] - & [place] 4 08:46:16 Daytime somnolence 663939284057 Active Stephan Santacruz null, [place] - [facility] - y & [place] 4 08:44:07 Nausea 330128241 Active Henna Griffin, JAYLIN [address] [place] [address] Drive, [address], [place], [address] , [place] - [facility] - & [place] 5 11:20:00 Gastroesop hageal reflux disease 120776315 Active Stephan Santacruz null, [place] - [facility] - & [place] 4 08:45:59 CT of chest abnormal 1215540567650 9102 Active Stephan Santacruz null, [place] - [facility] - [place] & [place] 4 08:44:03 Hyperlipid emia 33928591 Active Stephan Santacruz null, [place] - [facility] - [place] & [place] 4 08:46:34 Type 2 diabetes mellitus without complicati on 832336361 Active Not Available [facility] 4 08:10:34 Anxiety 50512085 Active Stephan Santacruz null, [place] - [facility] - [place] & [place] 4 08:43:26 Obstructiv e sleep apnea syndrome 99022836 Active Stephan Santacruz null, [place] - [facility] - [place] & [place] 4 08:45:09 Nodule of lung 367538960 Active Stephan [place]ac[place] 4 08:45:12 Diarrhea 91805611 Active Stephan Santac[place] 4 08:44:14 Binge drinker 691130376 Active Stephan Santac[place] 4 08:43:30 Epigastric pain 93671077 Active Stephan Santac[place] 4 08:44:36 Mild intermitte nt asthma 531237762 Active Stephan Santac[place] 4 08:45:29 Lumbar spondylosi s 240362521 Active Stephan [place]ac[place] 4 08:45:35 Constipati on 09798301 Active Stephan Santac[place] 4 08:43:57 Dysphagia 16872011 Active 2022 Stephan Santac[place] 4 08:44:28 Diarrhea of presumed infectious origin 47955040 Active 2022 Stephan Santac[place] 4 08:44:18 Infection by Strongyloi jeni 0992308 Active 2022 Stephan Santac[place] 4 08:46:43 Gastroesop hageal reflux disease without esophagiti s 495302340 Active 2022 Not Available [facility] 4 08:10:34 Obesity 976953308 Active 2023 Tutu Johnson MD [address] [place] [address], [address] , [place] 4 10:22:51 Notes:Some problems listed i n Document: #[id number] could not be added to this patient's chart. Please review this document and add these problems to the patient's chart manually as needed. Problem Notes None recorded. Procedures Surgical History Date Name Laterality Status Provider Name and Address Organization Details Recorded Time 2024 6 Minute Walk Test completed Trini Phillips [place] [facility] [facility] & [place] 5 12:06:58 2023 Medicare Annual Wellness Visit Health Risk Assessment completed Saba Sanchezrosalbai [place] [facility] & [place] 4 09:13:41 2023 Nasal Endoscopy completed Elton RODRIGEZ - [facility] & [place] 4 14:11:07 2022 Fiberoptic Laryngoscopy completed Elton RODRIGEZ - [facility] & [place] 3 15:34:17 2017 colonoscopy completed Henna Griffin NP [address], [address], [place], [address], [place] [facility] & [place] 5 13:08:30 2017 esophagogastroduodenoscopy completed Alicia Griffin NP [address], [address], [place], [address], [place] 5 13:08:39 2016 Unlisted px dentalvlr strux completed Tamalfred ie Danieldini [place] [facility] & [place] 2 12:01:52 2015 esophagogastroduodenoscopy completed Ariella e Mirtai [place] [facility] & [place] 2 12:01:40 2007 Partial hysterectomy completed Saba Pardini [place] [facility] & [place] 2 11:59:20 Sinus Surgery completed Irma RODRIGEZ - [facility] & [place] 4 13:42:39 parathyroidectomy completed Saba Pardini [place] [facility] & [place] 2 12:00:51 Imaging Results None recorded. Procedure Notes None recorded. Medical Equipment None Reported. Allergies Allergen ID Allergen Name Allergen Category Reaction Reaction Severity Criticality Documentation Date Start Date Code Code System Note Provider Name and Address Organization Details Recorded Time 50929 Substance with sulfonami de structure and antibacte rial mechanism of action (substanc e) medicatio n abdominal pain nausea vomiting mild moderate moderate Not available 08/24/2022 49471 8003 SNOMED Not Available [facility] 2 14:26:01 75459 codeine medicatio n nausea mild low 08/24/2022 2670 RxNorm Bira Colon null, [place] 5 12:54:11 Medications Name Sig Start Date [...] Not Available No t Available amoxicillin 875 mg-potyusufu m clavulanate 125 mg tablet Take 1 [...] Organization Details Last Updated DateTime 154.94 cm 32.8 kg/m2 67911.9 2 g 98.1 [degF] 96 % 96 % 2 L/min 82 /min 14 /min 154 mm[Hg] 86 mm[Hg] Saba Cam WATERMAN [facility] & [place] 11:48:04 Social History Question Answer Notes LastModified by Organizat ion Details LastModified Time Tobacco Smoking Status Former Smoker Saba Sanchezjennifer zapata, [place] WATERMAN [facility] & [place] 12/29/2024 14:30:53 Do You Have An Advance Directive? No [email or web address] Information n ot available 05/05/2024 Do You Wear A Helmet When Biking? Yes [email or web address] Information not available 05/05/2024 Are You Blind Or Do You Have Difficulty Seeing? No [email or web address] Information n ot available 05/05/2024 What Is Your Level Of Caffeine Consumption? None Information not available 05/05/2024 In The 14 Days Before Symptom Onset, Have You Had Close Contact With A Laboratory-confirm ed COVID-19 While That Case Was Ill? No [email or web address] Information n ot available 05/05/2024 In The 14 Days Before Symptom Onset, Have You Had Close Contact With A Person Who Is Under Investigation For COVID-19 While That Person Was Ill? No [email or web address] Information not available 05/05/2024 Have You Been To An Area Known To Be High Risk For COVID-19? No [email or web address] Information not available 05/05/2024 Are You Deaf Or Do You Have Serious Difficulty Hearing? No [email or web address] Information not available 05/05/2024 What Type Of Diet Are You Following? REGULAR [email or web address] Information n ot available 05/05/2024 Have You Processed Blood Or Body Fluids From An Ebola Virus Disease Patient Without Appropriate PPE? No [email or web address] Information not available 05/05/2024 Do You Reside In Or Have You Traveled To An Area Where Ebola Virus Transmission Is Active? No [email or web address] Information not available 05/05/2024 Have There Been Any Changes To Your Family Or Social Situation? No [email or web address] Information no t available 05/05/2024 What Is The Fluoride Status Of Your Home? Unknown Information not available 05/05/2024 When Did You Quit Smoking? 1-5yearssince lastcigarette Information not available 12/29/2024 Are There Any Guns Present In Your Home? No [email or web address] Information not available 05/05/2024 Have You Recently Or Are You Planning To Travel To An Area With Zika Virus? No [email or web address] Information not available 05/05/2024 Do You Use Insect Repellent Routinely? Yes [email or web address] Information not available 05/05/2024 In General, Would [...] Bread, 1 Cup Of Whole-grain Or High-fiber Cgosg-hk-jzv Cereal, 1 2 Cup Of Cooked Cereal Such As Oatmeal, Or 1 2 Cup Of Cooked Brown Rice Or Whole Wheat Pasta.) 1-2 Servings Per Day Information not available 05/27/2024 In The Past 7 Days, How Many Servings Of Fried Or High-fat Foods Did You Typically Eat Each Day? (Examples Include Fried Chicken, Fried Fish, [place], [place] [employer], Potato Chips, [place] Chips, Doughnuts, Creamy Salad Dressings, And Foods [...] Past 7 Days, How Often Have You [place] Sleepy During The Daytime? Rarely Information not [...] Do You Have A Medical Power Of Ms Sql Developer? No [email or web address] Information not available 05/05/2024 What Was The Date Of Your Most Recent Tobacco Screening? 05/20/2024 [email or web address] Information not available 05/20/2024 What Is Your Current Pack Years? 20-29packyear s Information not available 08/24/2022 Do You Have Any Pets? No [email or web address] Information not available 05/05/2024 What Is Your Relationship Status? Domestic Partner Information not available 05/27/2024 Do You Use Your Seat Belt Or Car Seat Routinely? Yes Information not available 05/05/2024 Are You Sexually Active? Yes Information not available 05/27/2024 Do You Have Smoke And Carbon Monoxide Detectors In Your Home? Yes [email or web address] Information not available 05/05/2024 Are You Passively Exposed To Smoke? No [email or web address] Information no t available 05/05/2024 How Much Tobacco Do You Smoke? 1 PPD Information not available 08/24/2022 Do You Use Sunscreen Routinely? Yes [email or web address] Information not available 05/05/2024 Has Tobacco Cessation Counseling Been Provided? Yes Information not available 08/24/2022 On What Date Was Tobacco Cessation Counseling Provided? 05/20/2024 [email or web address] Information not available 05/20/2024 Do You Have Difficulty Walking Or Climbing Stairs? No [email or web address] Information not available 05/05/2024 Are You Currently In School? No [email or web address] Information not available 05/05/2024 Sex: Unknown Functional [...] 05/05/2024 Do you have transportation difficulties? No [email or web address] Information not available 05/05/2024 Are you able to walk? YESWOREST [email or web address] Information not available 05/05/2024 Do you have difficulty doing errands alone? No [email or web address] Information not available 05/05/2024 Are you able to care for yourself? Yes [email or web address] Information not available 05/05/2024 Do you have difficulty dressing or bathing? No [email or web address] Information not available 05/05/2024 What is your exercise level? None [email or web address] Information not available 05/05/2024 Mental Status Question Answer Note LastModified by Organizat ion Details LastModified Time Do you feel stressed (tense, restless, nervous, or anxious, or unable to sleep at night)? [id number] [email or web address] Information not available 05/05/2024 Do you have difficulty concentrating, remembering or making decisions? No [email or web address] Information no t available 05/05/2024 Family History [...] PF, 0.5 mL 1 completed Not Available [facility] 01/02/2024 08:10:35 TST-PPD intradermal 2 completed Not Available [facility] 01/02/2024 08:10:35 COVID-19, mRNA, LNP-S, PF, 100 mcg/0.5mL dose or 50 mcg/0.25mL dose 2 completed Ronit Lugo null, [place] 02/24/2024 12:29:29 COVID-19 vaccine, vector-nr, rS-Ad26, PF, 0.5 mL 1 completed Ronit Evanstle [place] 02/24/2024 12:29:29 COVID-19, mRNA, LNP-S, bivalent, PF, 50 mcg/0.5 mL or 25mcg/0.25 mL dose 3 completed Ronit Lug[place] 02/24/2024 12:29:29 COVID-19, mRNA, LNP-S, PF, 50 mcg/0.5 mL 3 completed Ronit [place] - [facility] - [place] & [place] 02/24/2024 12:29:29 Past Encounters Encounter ID Performer Location Encounter Start Date Encounter Closed Date Diagnosis/Indication Diagnosis SNOMED-CT Code Diagnosis ICD10 Code Diagnosis Note [id number] Tutu Johnson MD [address] [place] [address] 04/13/2025 08:50:17 04/13/2025 10:07:55 Acute cough [id number] 16292384 R05.1 Will obtain an x-ray. If it shows any significan t findings will go ahead and put patient on antibiotic s and steroids. We are currently waiting results. Anxiety 88149313 F41.9 Continue with current regimen. Well contr olled type 2 diabetes mellitus 535297320 E11.9 Patient to continue with regimen that includes Ozempic. At her request will increase Ozempic to help assist in weight loss. Body mass index 30+ - obesity 753726064 E66.9 patient to restart her Ozempic this should help her weight gain journey. She has also been advised to continue with diet and exercise. [id number] Tutu Johnson MD [address] [place] [address] 04/30/2025 14:26:14 04/30/2025 14:44:39 History of pneumonia 350198015 Z87.01 will obtain chest x-ray and start patient on Levaquin.I am going to refer her for pulmonary rehab. Nausea 924598956 R11.0 Patient has been advised to try Reglan for her chronic nausea. Obstructive emphysema 16 570729 J43.9 Chronic ob structive pulmonary disease 18451965 J44.9 Patient to continue with oxygen at this time. [id number] Tutu Johnson MD [address] [place] [address] 05/11/2025 11:31:10 05/11/2025 12:05:58 Dyspnea on exertion 35238530 R06.09 patient exam is completely unremarkab le. We have had extensive discussion s regarding anxiety and how anxiety with impacted rebreathin g. Patient admits that she is extremely worried about getting pneumonia again. She has a history of chronic COPD and she is on oxygen 18/06. She appears to be stable at this time. Anxiety 42887595 F41.9 We have discussed various activities that will help reduce her codependen cy on her mother. Patient has agreed to register for the [facility]. She has also agrees to register for the [facility] to do exercise classes. Health Concerns Section Related Observation LastModified by Organization Detai ls LastModified Time None Recorded Concern Status LastModified by Organization Details LastModified Time None Recorded Payers Encounter Date Sequence Insurance Name Policy Number Policy Reyes Covered Member ID Reyes Member ID Guarantor Name 05/11/2025 2 [place] [employer] - FFS/TRADITIO NAL Roberto Rolon [id number] Roberto Moctezuma 05/11/2025 1 [employer] (MEDICARE REPLACEMENT/ ADVANTAGE - PPO) Roberto Moctezuma [id number] Roberto Moctezuma Notes Date Note Type Note Provider Name and Address Organization Details Recorded Time 05/11/2025 text/html patient presents today for routine follow-up. She is also concerned about her breathing and claims to be congested. Patient also suffers from anxiety Tutu Johnson MD [address] [place] [address], [id number], [facility] & [place] 05/11/2025 12:17:27 OBGyn Episode No OBEpisode recorded.
--- OUTSIDE RECORDS SUMMARY | 2025-05-17 08:37 | XMS_ITS | Encounter Summary ---
Author Organization Healthcare Address [address] [place] [address] Care Team Providers Care Radiator Specialist Name Role Phone Arline Roberts Primary Care Provider Encounter Details Date Type Department Care Team (Late st Contact Info) Description 03/25/2025 Abstract [facility] [address] [address] Dental, Surgeon, [address] [place] [address] Social History Tobacco Use Types Packs/Day Years [...] on filedocumented in this encounter Care Teams Radiator Specialist Relationship Specialty Start Date End Date Arline Roberts PA [address] [place] [address] [place] [address] PCP - General 04/08/21 documented as of this encounter
[2025-05-17 08:38] VITALS: BP 176/78; PULSE 73; RESP 22; TEMP 36.9; O2SAT 97; BMI 30.9
--- OUTSIDE RECORDS SUMMARY | 2025-05-17 08:38 | XMS_ITS | Continuity of Care Document ---
Author Organization [facility]- [facility] Address [address] [place] [address] [address] Care Team Providers Care Assayer Helper Name Role Phone HENNA GRIFFIN [employer] T[employer] TUTU JOHNSON Primary Care Provider [phone] Assessment No assessment recorded. Plan of Treatment Reminders Order Date Submit Date Provider Last Modified By Organization Details Last Modified Time Details Appointments OV EST 2024 01:15P M Fransisco Page M.D Not available Not available Not available PROC 30 2024 07:30A M Edvin Jarrell M.D Not available Not available Not available OV EST 2024 10:00A M Tutu Johnson MD Not available Not available Not available OV EST 2024 02:15P M Henna Griffin NP Not available Not available Not available Lab None recorded . Referral None recorded . Procedures None recorded . Surgeries None recorded . Imaging XR, chest, 2 view 2024 025 [facility] ([facility]ly [facility], [facility]), [address] [place], [address], 04/13/2025 12:44:29 Medication Orders Ozempic 2 mg/dose (8 mg/3 mL) subcutan eous pen injector 2024 025 [place] [id number], [address] [place], [id number], 04/13/2025 10:23:24 alprazol am 0.5 mg tablet 2024 025 [id number], [address], [place], [place], [id number], 04/13/2025 10:20:56 Patient TargetsNo targets recorded. Patient InstructionsNo instructions recorded. Reason for Referral None Reported. Results Created Date Observation Date Name Description Value Unit Range Abnormal Flag Note LastModifiedBy Organization Detail LastModifiedTime 04/03/20 25 04/03/2025 CT, chest , w/o contr ast [facility] [address] [facility] [place] [address] [phone] (Phone ) PAU Jennifer REPORT Name: ROBERTO MOCTEZUMA : 1969 Accoun t #: [id number] Age: 55 Years Patien t Type: Outpat ient Sex: F Access ion#: [id number] Exam Descri ption: CT CHEST WO Exam Reason : r91.1 solita ry pulmon elizabeth nodule Order Date/T jamie: 2024 10:05: 21 AM Dictat ed By: Alejandrina Todd MD Orderi Physic lg: DILCIA BUTLER, REGANSOIsis Attend [facility] Physic lg: DILCIA BUTLER, YOUSOF EXAM: CT [...] ROBERTO MOCTEZUMA : 1969 Accoun t #: [id number] Age: 55 Years Patien t Type: Outpat ient Sex: F Access ion#: [id number] Exam Descri ption: CT CHEST WO [...] Admitt ing Provid er: ELGARI ED YOUSOF [email or web address] [facility] (Central Scheduling) [address] [place] [address] [place], [address], 04/06/2025 10:56:17 04/03/20 25 04/03/2025 imagi ng inter preta tion No observ ation record ed. [email or web address] [facility] (Registration ) [address] [place] [address] [place], [address], 04/06/2025 07:57:34 04/13/20 25 04/13/2025 XR, chest , 2 view [facility] [address] [place] [address] Phone: Fax: Name: ROBERTO MOCTEZUMA Exam Date: 025 : [birth year] Age 55 years Gender : F Access ion: [id number] Physic lg: KAREEM JOHNSON Facili ty: [facility] Facili ty HSV: Outpat ient Exam: [...] you for referr ing ROBERTO MOCTEZUMA to [facility]. Legall y authen ticate d by AMADA TINOCO MD 04-13 10:14: 40 CC'ed Logic: Orderi ng Provid er: ALEX HEBERT CC Provid er: ALEX HEBERT Attend ing Provid er: ALEX HEBERT Referr ing Provid er: ALEX HEBERT Admitt ing Provid er: ALEX HEBERT [facility] (Radiology) [address] [place], [address], 04/13/2025 13:55:00 05/01/20 25 04/30/2025 XR, chest , 2 view [facility] [address] [facility] [place] [address] Phone: Fax: Name: ROBERTO MOCTEZUMA Exam Date: 04/30/20 25 : [birth year] Age 55 years Gender : F Access ion: [id number] Physic lg: KAREEM JOHNSON NDE Facili ty: [facility] Facili ty HSV: Outpat ient Exam: CHEST PA ^ LAT EXAMIN ATION: TWO VIEW CHEST XR CLINIC AL INDICA TION: Female , 55 years old. HISTOR Y OF PNEUMO DEBORAH. TECHNI QUE: 2 View, PA and latera l, X-ray of the chest was perfor med. [id number] . COMPAR [place]: No prior exam. FINDIN [...] [facility] Leg[facility] y authen ticate d by ROSIBEL DE LUNA MD 04-30 15:23: 14 CC'ed Logic: Orderi ng Provid er: SOHAILEY LEEATU NDE CC Provid er: SOALEKSANDRAN JESUSATU NDE Attend ing Provid er: SOHAILEY SCOTTU NDE Referr ing Provid er: SOHAILEY SERNA NDE Admitt ing Provid er: SOKAN JESUSATU NDE [facility] (Radiology) [address] [place] [address] [place], [address], 05/04/2025 12:25:29 05/04/20 25 05/04/2025 imagi ng inter preta tion No observ ation [facility] ed[facility] [address], [place], [address], 05/04/2025 12:38:40 Result Notes Documentation Provider Name and Address Organization Details Recorded Time Xr, Chest, 2 View : [address] [place] [address] Name: ROBERTO MOCTEZUMA Exam Date: 04/13/2025 : 1970 Age 55 years Gender: F Physician: TUTU JOHNSON Facility: [facility] Facility HSV: Outpatient Exam: CHEST PA ^ LAT XR CHEST 2 VIEWS Reason For Study: acute cough COMPARISON:12/12/2024 TECHNIQUE: PA and lateral views of the chest were obtained. FINDINGS Heart size normal. No layering effusion is evident. There is suggestion of COPD. Minimal basal pneumonia can be seen left greater than right. There is mild peribronchial thickening. IMPRESSION: Mild basal pneumonia left greater than right. Electronically signed by: Alejandrina Todd MD 04/13/2025 12:37 PM EDT RP Dictated By: ALEJANDRINA TODD Transcribed By: Transcribed On: 04/13/2025 10:14 AM Electronically signed by: ALEJANDRINA TODD 04/13/2025 Thank you for referring ROBERTO MOCTEZUMA to [facility]. Legally authenticated by AMADA TINOCO MD 2025-04-13 10:14:40 CC'ed Logic: Ordering Provider: ALEX BAINS CC Provider: ALEX BAINS Attending Provider: ALEX BAINS Referring Provider: ALEX BAINS Admitting Provider: ALEX BAINS Not Available [facility] 04/13/2025 13: 55:00 Problems Name Problem SNOMED Code Status Onset Date Resolution Date Notes Provider Name and Address Organization Details Recorded Time Blood-ting ed feces 9162563740583 02 Active 2024 Henna Griffin NP [address] [place] [address], [address], [place], [address] , [facility] & [place] 5 11:20:19 Abdominal pain 80720283 Active 2021 Not Available [employer] 4 08:10:34 Osteoarthr itis 450566880 Active 2021 Not Available [employer] 4 08:10:34 Tobacco user 275779553 Active 2021 Not Available [employer] 4 08:10:34 Chronic constipati on 149887672 Active 2021 Not Available [facility] 4 08:10:34 Irritable bowel syndrome 10044726 Active 2021 Not Available [facility] 4 08:10:34 Chronic obstructiv e pulmonary disease 98259756 Active 2021 Not Available [facility] 4 08:10:34 Chronic pain syndrome 840436352 Active 2021 Not Available [facility] 4 08:10:34 Asthma 098890133 Active 2021 Not Available [facility] 4 08:10:34 Neuropathy 610566873 Active 2021 Not Available [facility] 4 08:10:34 Mixed anxiety and depressive disorder 668908087 Active 2021 Not Available [facility] 4 08:10:34 Well controlled type 2 diabetes mellitus 753666086 Active Stephan Santacruz null, [place] [facility] - [place] & [place] 4 08:44:51 Dyspnea 520420730 Active Stephan Santacruz [place], [place] & [place] 4 08:44:31 Insect sting 672599590 Active Stephan Santacruz [place] & [place] 4 08:45:49 Lower abdominal pain 00869607 Active Stephan Santac[place] & [place] 4 08:45:40 Exacerbati on of moderate persistent asthma 985671138 Active Stephan Santac[place] & [place] 4 08:44:48 Burping 314871831 Active Henna Griffin NP [address], [address], [place], [address] , [place] [facility] [place] & [place] 5 11:20:12 Tobacco dependence caused by cigarettes 4872077634169 9107 Active Stephan Santacruz [place], [place] & [place] 4 08:44:55 Finding of tobacco use and exposure 421737621 Active Stephan Santac[place] & [place] 4 08:46:08 Clostridio ides difficile infection 752734615 Active Stephan Santac[place] & [place] 4 08:43:49 Swollen abdomen 43937078 Active Stephan Ayalales [place] [facility] & [place] 4 08:44:57 Irritable bowel syndrome characteri zed by constipati on 953976492 Active Stephan Santac[place] & [place] 4 08:45:43 Esophageal dysphagia 71367899 Active Stephan Santac[place] & [place] 4 08:44:40 Fall Active Stephan [place]ac[place] & [place] 4 08:46:20 Finding of gastrointe stinal tract gas 998906097 Active Stephan Santac[place] & [place] 4 08:46:12 Chronic pain 41152674 Active Stephan Santac[place] & [place] 4 08:43:44 Gastritis 0667359 Active Stephan Santac[place] & [place] 4 08:46:05 Alteration in bowel eliminatio n 725295579 Active Stephan Santac[place] & [place] 4 08:43:22 Generalize d abdominal pain 213564567 Active Stephan Santac[place] & [place] 4 08:46:26 Acute back pain with sciatica 997526614 Active Stephan Santac[place] & [place] 4 08:43:13 Idiopathic peripheral autonomic neuropathy 98187599 Active Stephan Santac[place] & [place] 4 08:46:40 Pneumonia 161264961 Active Stephan Santacruz [place], [place] & [place] 4 08:45:02 Pain of multiple joints 79072394 Active Stephan Santacruz null, [place] [facility] & [place] 4 08:45:18 Abdominal bloating 331117719 Active Stephan Ayalales null, [place] [facility] - [place] & [place] 4 08:43:10 Chest pain 63984440 Active Stephan Santacruz null, [place] [facility] - [place] & [place] 4 08:43:37 Chronic idiopathic constipati on 75995187 Active Stephan Santacruz null, [place] - [facility] & [place] 4 08:43:41 Moderate persistent asthma 660197275 Active Stephan Santacruz null, [place] [facility] & [place] 4 08:45:21 Exogenous hyperlipid emia 839572004 Active Stephan Santacruz null, [place] [facility] - [place] & [place] 4 08:46:23 Allergic rhinitis 70425446 Active Stephan Santacruz null, [place] [facility] & [place] 4 08:43:17 History of drug abuse 900352851 Active Stephan Santacruz null, [place] [facility] - [place] & [place] 4 08:46:29 Gastro-eso phageal reflux disease with esophagiti s 251686920 Active Stephan Santacruz null, [place] [facility] - [place] & [place] 4 08:46:01 Injury of nose 78453271 Active Stephan Santacruz null, [place] [facility] - [place] & [place] 4 08:45:53 Disturbanc e in sleep behavior 19889839 Active Stephan Santacruz null, [place] [facility] - [place] & [place] 4 08:44:24 Cocaine dependence in remission 182172172 Active Stephan Santacruz null, [place] [facility] & [place] 4 08:43:53 Osteoarthr itis of multiple joints 875120069 Active Stephan Ayalales null, [place] [facility] - [place] & [place] 4 08:45:04 Fatigue 40287922 Active Stephan Santacruz null, [place] - [facility] - [place] & [place] 4 08:46:16 Daytime somnolence 188581011956 Active Stephan Santacruz null, [place] - [facility] - & [place] 4 08:44:07 Nausea 901795115 Active Henna Griffin NP [address], [address], [place], [address] , [place] - [facility] - & [place] 5 11:20:00 Gastroesop hageal reflux disease 435257666 Active Stephan Santacruz null, [place] - [facility] - & [place] 4 08:45:59 CT of chest abnormal 9560304881810 9102 Active Stephan Santacruz null, [place] - [facility] - & [place] 4 08:44:03 Hyperlipid emia 13482608 Active Stephan Santacruz null, [place] - [facility] - & [place] 4 08:46:34 Type 2 diabetes mellitus without complicati on 858466052 Active Not Available [facility] 4 08:10:34 Anxiety 90232714 Active Stephan Santacruz null, [place] - [facility] - & [place] 4 08:43:26 Obstructiv e sleep apnea syndrome 33320937 Active Stephan Santacruz null, [place] - [facility] - & [place] 4 08:45:09 Nodule of lung 542634258 Active Stephan Santacruz null, [place] - [facility] - & [place] 4 08:45:12 Diarrhea 45224632 Active Stephan Santacruz null, [place] - [facility] - & [place] 4 08:44:14 Binge drinker 348956899 Active Stephan Santacruz null, [place] - [facility] - & [place] 4 08:43:30 Epigastric pain 66154238 Active Stephan Santac[place] [facility] [place] & [place] 4 08:44:36 Mild intermitte nt asthma 263139534 Active Stephan Santacruz [place] & [place] 4 08:45:29 Lumbar spondylosi s 154469227 Active Stephan Santacruz [place], [place] [facility] & [place] 4 08:45:35 Constipati on 52614247 Active Stephan Ayalales [place], [place] [facility] & [place] 4 08:43:57 Dysphagia 85796786 Active 2022 Stephan Ayalales [place] & [place] 4 08:44:28 Diarrhea of presumed infectious origin 41693545 Active 2022 Stephan Santacruz [place] & [place] 4 08:44:18 Infection by Strongyloi jeni 6381493 Active 2022 Stephan Ayalales [place] [facility] & [place] 4 08:46:43 Gastroesop hageal reflux disease without esophagiti s 396803474 Active 2022 Not Available [facility] 4 08:10:34 Obesity 160348307 Active 2023 Tutu Johnson MD [address] [place] [address], [address] [facility] [place] - [place] - [facility] & [place] 4 10:22:51 Notes:Some problems listed i n Document: #[id number] could not be added to this patient's chart. Please review this document and add these problems to the patient's chart manually as needed. Problem Notes None recorded. Procedures Surgical History Date Name Laterality Status Provider Name and Address Organization Details Recorded Time 2024 6 Minute Walk Test completed Trini Phillips [place] - [place] & [place] 5 12:06:58 2023 Medicare Annual Wellness Visit Health Risk Assessment completed Saba Levy [place] - [place] & [place] 4 09:13:41 2023 Nasal Endoscopy completed Elton RODRIGEZ - [facility] - [facility] & [place] 4 14:11:07 2022 Fiberoptic Laryngoscopy completed Elton RODRIGEZ - [facility] - [place] & [place] 3 15:34:17 2017 colonoscopy completed Henna Griffin NP [address], [address], [place], [place], [address], [place] - [facility] - [place] & [place] 5 13:08:30 2017 esophagogastroduodenoscopy completed Alicia Griffin NP [address], [address], [place], [place], [address], [place] - [facility] - [place] & [place] 5 13:08:39 2016 Unlisted px dentalvlr strux completed Tamm ie Mirtai [place] - [facility] & [place] 2 12:01:52 2015 esophagogastroduodenoscopy completed Ariella e Danieldini [place] [facility] & [place] 2 12:01:40 2007 Partial hysterectomy completed Sabachin Kirbyi [place] - [facility] & [place] 2 11:59:20 Sinus Surgery completed Irma Jin [place] - [facility] & [place] 4 13:42:39 parathyroidectomy completed Sabachin Sanchezdini [place] - [facility] & [place] 2 12:00:51 Imaging Results None recorded. Procedure Notes None recorded. Medical Equipment None Reported. Allergies Allergen ID Allergen Name Allergen Category Reaction Reaction Severity Criticality Documentation Date Start Date Code Code System Note Provider Name and Address Organization Details Recorded Time 78847 Substance with sulfonami de structure and antibacte rial mechanism of action (substanc e) medicatio n abdominal pain nausea vomiting mild moderate moderate Not available 08/24/2022 06115 8003 SNOMED Not Available [facility] 2 14:26:01 92345 codeine medicatio n nausea mild low 08/24/2022 2670 RxNorm Bria Colon null, [place] - [facility] & [place] 5 12:54:11 Medications Name Sig Start Date [...] Updated DateTime 5 154.94 cm 33.3 kg/m2 52238.6 9 g 97.2 [degF] 92 % 92 % 2 L/min 74 /min 18 /min 124 mm[Hg] 74 mm[Hg] Saba Levy [facility] & [place] 5 09:04:45 Social History Question Answer Notes LastModified by Organizat ion Details LastModified Time Tobacco Smoking Status Former Smoker Saba Levy [facility], [facility] & [place] 12/29/2024 14:30:53 Do You Have An Advance Directive? No [email or web address] Information n ot available 05/05/2024 Do You Wear A Helmet When Biking? Yes [email or web address] Information not available 05/05/2024 Are You Blind Or Do You Have Difficulty Seeing? No Information n ot available 05/05/2024 What Is Your Level Of Caffeine Consumption? None [email or web address] Information not available 05/05/2024 In The 14 Days Before Symptom Onset, Have You Had Close Contact With A Laboratory-confirm ed COVID-19 While That Case Was Ill? No [email or web address] Information n ot available 05/05/2024 In The 14 Days Before Symptom Onset, Have You Had Close Contact With A Person Who Is Under Investigation For COVID-19 While That Person Was Ill? No [email or web address] Information not available 05/05/2024 Have You Been To An Area Known To Be High Risk For COVID-19? No [email or web address] Information not available 05/05/2024 Are You Deaf Or Do You Have Serious Difficulty Hearing? No [email or web address] Information not available 05/05/2024 What Type Of Diet Are You Following? REGULAR Information n ot available 05/05/2024 Have You Processed Blood Or Body Fluids From An Ebola Virus Disease Patient Without Appropriate PPE? No [email or web address] Information not available 05/05/2024 Do You Reside In Or Have You Traveled To An Area Where Ebola Virus Transmission Is Active? No [email or web address] Information not available 05/05/2024 Have There Been Any Changes To Your Family Or Social Situation? No [email or web address] Information no t available 05/05/2024 What Is The Fluoride Status Of Your Home? Unknown [email or web address] Information not available 05/05/2024 When Did You Quit Smoking? 1-5yearssince lastcigarette Information not available 12/29/2024 Are There Any Guns Present In Your Home? No [email or web address] Information not available 05/05/2024 Have You Recently Or Are You Planning To Travel To An Area With Zika Virus? No [email or web address] Information not available 05/05/2024 Do You Use Insect Repellent Routinely? Yes [email or web address] Information not available 05/05/2024 In General, Would [...] Bread, 1 Cup Of Whole-grain Or High-fiber Fmmcu-co-euo Cereal, 1 2 Cup Of Cooked Cereal Such As Oatmeal, Or 1 2 Cup Of Cooked Brown Rice Or Whole Wheat Pasta.) 1-2 Servings Per Day Information not available 05/27/2024 In The Past 7 Days, How Many Servings Of Fried Or High-fat Foods Did You Typically Eat Each Day? (Examples Include Fried Chicken, Fried Fish, [place], Romanian [place], Potato Chips, [place] Chips, Doughnuts, Creamy Salad Dressings, And Foods [...] Past 7 Days, How Often Have You [place] Sleepy During The Daytime? Rarely Information not [...] Do You Feel Safe At Home? Yes [email or web address] Information not available 05/05/2024 Do You Have A Medical Power Of Com Writer? No [email or web address] Information not available 05/05/2024 What Was The Date Of Your Most Recent Tobacco Screening? 05/20/2024 [email or web address] Information not available 05/20/2024 What Is Your Current Pack Years? 20-29packyear s Information not available 08/24/2022 Do You Have Any Pets? No [email or web address] Information not available 05/05/2024 What Is Your Relationship Status? Domestic Partner Information not available 05/27/2024 Do You Use Your Seat Belt Or Car Seat Routinely? Yes [email or web address] Information not available 05/05/2024 Are You Sexually Active? Yes Information not available 05/27/2024 Do You Have Smoke And Carbon Monoxide Detectors In Your Home? Yes [email or web address] Information not available 05/05/2024 Are You Passively Exposed To Smoke? No [email or web address] Information no t available 05/05/2024 How Much Tobacco Do You Smoke? 1 PPD Information not available 08/24/2022 Do You Use Sunscreen Routinely? Yes [email or web address] Information not available 05/05/2024 Has Tobacco Cessation Counseling Been Provided? Yes Information not available 08/24/2022 On What Date Was Tobacco Cessation Counseling Provided? 05/20/2024 [email or web address] Information not available 05/20/2024 Do You Have Difficulty Walking Or Climbing Stairs? No [email or web address] Information not available 05/05/2024 Are You Currently In School? No [email or web address] Information not available 05/05/2024 Sex: Unknown Functional [...] available 08/24/2022 Are you currently employed? No [email or web address] Information not available 05/05/2024 Do you have transportation difficulties? No [email or web address] Information not available 05/05/2024 Are you able to walk? YESWOREST aqeodtgw29 Information not available 05/05/2024 Do you have difficulty doing errands alone? No [email or web address] Information not available 05/05/2024 Are you able to care for yourself? Yes [email or web address] Information not available 05/05/2024 Do you have difficulty dressing or bathing? No [email or web address] Information not available 05/05/2024 What is your exercise level? None [email or web address] Information not available 05/05/2024 Mental Status Question Answer Note LastModified by Organizat ion Details LastModified Time Do you feel stressed (tense, restless, nervous, or anxious, or unable to sleep at night)? ST1354-5 [email or web address] Information not available 05/05/2024 Do you have difficulty concentrating, remembering or making decisions? No Information no t available 05/05/2024 Family History [...] N Immune System Disorder N Heart Attack (MD) N Diabetes Y Bleeding Disorder N Tuberculosis [...] or 50 mcg/0.25mL dose 2 completed Ronit zapata, [place] - [facility] & [place] 02/24/2024 12:29:29 COVID-19 vaccine, vector-nr, rS-Ad26, PF, 0.5 mL 1 completed Ronit zapata [place] [facility] [facility] & [place] 02/24/2024 12:29:29 COVID-19, mRNA, LNP-S, bivalent, PF, 50 mcg/0.5 mL or 25mcg/0.25 mL dose 3 completed Ronit Lugo null, [place] [facility] [facility] & [place] 02/24/2024 12:29:29 COVID-19, mRNA, LNP-S, PF, 50 mcg/0.5 mL 3 completed Ronit zapata, [place] [facility] [facility] & [place] 02/24/2024 12:29:29 Past Encounters Encounter ID Performer Location Encounter Start Date Encounter Closed Date Diagnosis/Indication Diagnosis SNOMED-CT Code Diagnosis ICD10 Code Diagnosis Note [id number] Henna Griffin NP [facility] [address] [place] [phone] 04/01/2025 10:39:31 04/01/2025 11:19:03 Gastro-esophageal reflux disease with esophagitis 255954420 K21.00 Continues pantoprazo le 40 mg daily for treatment. Recently experienci ng increased dyspepsia and belching. Recommend continued use of PPI as prescribed as well as reflux precaution s. Plan for EGD to further evaluate. Chronic id iopathic constipation 00545898 K59.04 Currently controlled with use of MiraLax and stool softeners. Nausea 101549605 R11.0 daily episodes of nausea and dyspepsia for the past several weeks. She is currently prescribed NSAIDs for arthritis. Recommend EGD to evaluate for erosive gastritis, PUD, other. Burping 698604878 R14.2 Increased belching and dyspepsia over the past several weeks. Recommend continued use of PPI as prescribed . Plan for EGD as above to further evaluate. Blood-tinged feces 12205 61436 88863 K92.1 Episodes of hematochez ia that occurred several weeks ago. Currently denies symptoms. Recommend colonoscop y to further evaluate to rule out underlying colon polyps, lesions, internal hemorrhoid s. Last colonoscop y 02/2018. Family his tory of cancer of colon 241463153 Z80.0 Patient's father with history colon cancer. Plan for colonoscop y as above. [id number] Tutu Johnson MD [facility] [address] [place] [phone] 04/13/2025 08:50:17 04/13/2025 10:07:55 Acute cough [id number] R05.1 Will obtain an x-ray. If it shows any significan t findings will go ahead and put patient on antibiotic s and steroids. We are currently waiting results. Anxiety [id number] F41.9 Continue with current regimen. Well contr olled type 2 diabetes mellitus [id number] E11.9 Patient to continue with regimen that includes Ozempic. At her request will increase Ozempic to help assist in weight loss. Body mass index 30+ - obesity [id number] E66.9 patient to restart her Ozempic this should help her weight gain journey. She has also been advised to continue with diet and exercise. Health Concerns Section Related Observation LastModified by Organization Nicolasa ruby LastModified Time None Recorded Concern Status LastModified by Organization Details LastModified Time None Recorded Payers Encounter Date Sequence Insurance Name Policy Number Policy Reyes Covered Member ID Reyes Member ID Guarantor Name 04/13/2025 2 [place] [employer] - FFS/TRADITIO NAL Roberto Rolon [id number] Roberto Terrazasump 04/13/2025 1 [id number] (MEDICARE REPLACEMENT/ ADVANTAGE - PPO) Roberto Moctezuma [id number] Roberto Moctezuma Notes Date Note Type Note [...] alprazolam and her Ozempic. Tutu Johnson MD [address] [place] [address], [id number] 04/13/2025 10:23:21 OBGyn Episode No OBEpisode recorded.
--- OUTSIDE RECORDS SUMMARY | 2025-05-17 08:38 | XMS_ITS | Data Portability ---
Author Organization [facility] ADMIN Address [address] [place] [address] Care Team Providers Care Baggage Smasher Name Role Phone HENNA GRIFFIN Commodity Director [phone] NARA JOHNSON Primary Care Provider [phone] Assessment Encounter Date Assessment Date Assessment LastModified by Organization Details LastModified Time 05/11/2025 05/11/2025 Patient had mammogram today. [email or web address] Not available 05/11/2025 12:17:17 Plan of Treatment Reminders Order Date Submit Date Provider Last Modified By Organization Details Last Modified Time Details Appointments OV EST 15 2024 01:15P M Radha Torres M.D Not available Not available Not available PROC 30 2024 07:30A M Edvin Jarrell M.D Not available Not available Not available OV EST 15 2024 10:00A M Nara Johnson MD Not available Not available Not available OV EST 15 2024 02:15P Sherrill Griffin NP Not available Not available Not available Lab None record ed. Referral pulmon elizabeth rehab referr al 2024 025 ATHENAFAX [facility], [address], [place], [address], 04/30/2025 15:30:27 urolog ist referr al 2024 025 [email or web address] Ramon Colon MD, [address], [address], [place], [address], 03/16/2025 08:40:17 Procedures upper endosc opy proced ure (EGD) (PROC) 2024 025 [facility] (Central Scheduling), [address] [place] [address] [place], [address], 04/29/2025 12:53:29 colono scopy proced ure (PROC) 2024 025 [facility] (Central Scheduling), [address] [place] [address] [place], [address], 04/08/2025 07:56:30 Surgeries None record ed. Imaging XR, chest, 2 view 2024 025 [facility] (Scheduling), [address] [place], [address], 05/01/2025 08:40:43 XR, chest, 2 view 2024 025 [facility] (Scheduling), [address] [place], [address], 04/13/2025 12:44:29 Medication Orders Reglan 10 mg tablet 2024 025 [facility][id number], [address] [place] [place], [id number], 04/30/2025 18:01:56 levofl oxacin 750 mg tablet 2024 025 [facility] #93742, [address] [place], [id number], 05/11/2025 11:48:35 ipratr opium 0.5 mg-alb uterol 3 mg (2.5 mg base)/ 3 mL nebuli zation soln 2024 025 [facility] #52550, [address] [place] [place], [id number], 04/30/2025 14:41:23 Ozempi c 2 mg/dos e (8 mg/3 mL) subcut aneous pen inject or 05/19/ 2025 05/19/2 025 [facility] #95020, [address], [place], [id number], 04/13/2025 10:23:24 alpraz olam 0.5 mg tablet 2024 025 [facility] #94601, [address] [place] [place], [id number], 04/13/2025 10:20:56 Mirala x 17 gram/d ose oral powder 2024 025 [facility] #62289, [address], [place], [id number], 04/13/2025 09:05:37 Dulcol ax (bisac odyl) 5 mg tablet ,delay ed releas e 2024 025 [facility] #09404, [address], [place], [place], [id number], 04/13/2025 09:05:32 triamc inolon e aceton jayy 40 mg/mL suspen carmen for inject ion 2024 025 [email or web address] Not available 04/01/2025 11:07:29 dexame thason e sodium phosph ate 4 mg/mL inject ion soluti on 2024 025 [facility] Not available 04/01/2025 11:06:25 Patient TargetsNo targets recorded. Patient Instructions Encounter Date Encounter Id Patient Instructions Last Modified By Organization Details Last Modified Time 04/30/2025 [id number] complete PFT w/ post bronchodilator spirometry* ATHENAFAX Not available 04/30/2025 15:30:30 Reason for Referral Urologist Referral for Mixed urinary incontinence Referring Physician: Nara Johnson Family [facility], Encounter Date: 02/16/2025 Pulmonary Rehab Referral for History of pneumonia Referring Physician: Family Leonie Medicine, Encounter Date: 04/30/2025 Results Created Date Observation Date Name Description Value Unit Range Abnormal Flag Note LastModifiedBy Organization Detail LastModifiedTime 02/03/2002/02/2025 CULTU RE URINE results MRB 02-03 718 No Signi figan t Growt h at Day 1 MRB 02-04 722 No Signi fican t Growt h at Day 2 Not Available [facility] (Lab Registration) [address] , [place], [address], 02/04/2025 07:25:09 02/03/20 25 02/02/2025 CULTU RE URINE note Unles s other mayo noted testi ng perfo rmed at: [facility] [address] [place] [address] [phone] Tra mariscal MD CLIA: [id number] Not Available [facility] (Lab Registration) [address] [place], [address], 02/04/2025 07:25:09 01/23/20 25 01/23/2025 imagi ng inter preta tion No observ ation record ed. tpardini [facility] [address], [place], [address], 01/26/2025 07:41:42 04/03/20 25 04/03/2025 CT, chest , w/o contr ast [facility] [address] [place] [address] [phone] (Phone ) PAU Rodriguez REPORT Name: CORETTA MOCTEZUMA : 1969 Accoun t #: [id number] Age: 55 Years Patien t Type: Outpat ient Sex: F Access ion#: [id number] Exam Descri ption: CT CHEST WO Exam Reason : r91.1 solita ry pulmon elizabeth nodule Order Date/T jamie: 2024 10:05: 21 AM Dictat ed By: Alejandrina Todd MD Orderi ng Physic lg: DILCIA ED, YOUSOF Attend ing Physic lg: ELMARSHALLI ED, YOUSOF EXAM: CT CHEST WITHOU T [...] CORETTA MOCTEZUMA : 1969 Accoun t #: [id number] Age: 55 Years Patien t Type: Outpat ient Sex: F Access ion#: [id number] Exam Descri ption: CT CHEST WO [...] ELGARI ED YOUSOF [facility]: [facility] YOU[facility] [id number] [facility] (Central Scheduling) [address] [place] [address] [place], [address], 04/06/2025 10:56:17 04/03/20 25 04/03/2025 imagi ng inter preta tion No observ ation record ed. tpardini [facility] (Registration ) [address] [place] [address] [place], [address], 04/06/2025 07:57:34 04/13/20 25 04/13/2025 XR, chest , 2 view [facility] [address] [place] [address] Phone: Fax: Name: CORETTA MOCTEZUMA Exam Date: : [birth year] Age 55 years Gender : F Access ion: [id number] Physic lg: KAREEM JOHNSON NDE Facili ty: [facility] Facili ty HSV: Outpat ient Exam: CHEST [...] ALEJANDRINA TODD Thank you for referr ing CORETTA [facility]ZU[facility] to [facility]. Legall y authen ticate d by AMADA TINOCO MD 2024-0 04-13 10:14: 40 CC'ed Logic: Orderi ng Provid er: ALEX LEEGEORGE NDE CC Provid er: ALEX LEEGEORGE NDE Attend ing Provid er: ALEX SONIAU NDE Referr ing Provid er: ALEX KAREEM NDE Admitt ing Provid er: ALEX KAREEM EMILEE [facility] (Radiology) [address] [place], [address], 04/13/2025 13:55:00 05/01/20 25 04/30/2025 XR, chest , 2 view [facility] [address] [facility] [place] [address] Phone: Fax: Name: CORETTA MOCTEZUMA Exam Date: 04/30/20 : [birth year] Age 55 years Gender : F Access ion: [id number] Physic lg: MATHIEUKAREEM HART Facili ty: [facility] Facili ty HSV: Outpat ient Exam: CHEST PA ^ LAT EXAMIN ATION: TWO VIEW CHEST XR CLINIC AL INDICA TION: Female , 55 years old. HISTOR Y OF PNEUMO DEBORAH. TECHNI QUE: 2 View, PA and latera l, X-ray of the chest was perfor med. [id number] . COMPAR AHILEY: No prior exam. FINDIN GS: Unchan ged [...] BEAR 04/30/20 Thank you for referr ing RHIANNA CORETTA to [facility] Legall y authen ticate d by ROSIBEL DE LUNA MD 04-30 15:23: 14 CC'ed Logic: Orderi ng Provid er: JOSEPHN BABATU NDE CC Provid er: SOALEKSANDRAN JESUSATU NDE Attend ing Provid er: SOALEKSANDRAN JESUSATU NDE Referr ing Provid er: SOALEKSANDRAN JESUSATU NDE Admitt ing Provid er: SOALEKSANDRAN BABATU NDE [facility] (Radiology) [address] [facility], [place], [address], 05/04/2025 12:25:29 05/04/20 25 05/04/2025 imagi ng inter preta tion No observ ation record ed. [facility] [address], [place], [address], 05/04/2025 12:38:40 Result Notes Documentation Provider Name and Address Organization Details Recorded Time Ct, Chest, W/o Contrast : [address] [address] (Phone) IMAGING REPORT Name: CORETTA MOCTEZUMA : 1970 Age: 55 Years Patient Type: Outpatient Sex: F Exam Description: CT CHEST WO Exam Reason: r91.1 solitary pulmonary nodule Order Date/Time: 04/03/2025 10:05:21 AM Dictated By: Alejandrina Todd MD Ordering Physician: RADHA TORRES Attending Physician: RADHA TORRES EXAM: CT CHEST WITHOUT IV CONTRAST Reason For Study: r91.1 solitary pulmonary nodule COMPARISON: 03/24/2022, 11/14/2024 screening study, 12/10/2024. TECHNIQUE: CT scan through the chest from the thoracic inlet to the upper abdomen was performed without contrast. Automated exposure control, adjustment of mA and/or kV according to patient size was utilized. FINDINGS: Significant clearing of airspace disease in the lungs since 12/10/2024. There is some mild groundglass changes noted in the left lower lobe. No layering pleural effusions. Previously described 8 mm nodule in the lingular area appears resolved. The scarring noted in the lingula previously is unchanged. There is a calcified granuloma image in the left lower lung field measuring 5 mm. There is also some scarring in the medial portion of right middle lobe which is unchanged. There is hepatic steatosis and hepatomegaly and adrenals are normal. No PAGE 1 OF 2 Name: CORETTA MOCTEZUMA : 1970 Age: 55 Years Patient Type: Outpatient Sex: F Exam Description: CT CHEST WO Exam Reason: r91.1 solitary pulmonary nodule Order Date/Time: 04/03/2025 10:05:21 AM free fluid upper abdomen. No significant axillary adenopathy or chest wall masses. There is mild DJD in the spine. Sternum intact. No definite displaced rib fractures evident. No large airway filling defects appreciated. Thyroid normal. No significant mediastinal adenopathy. Heart size normal. No pericardial fluid. Calcified lymph nodes subcarinal space left hilum. Mild atherosclerotic calcification aorta which is normal in caliber. IMPRESSION: 1. Resolution of the 8 mm nodule in the lingula since prior study. 2. Mild groundglass changes left lower lobe and lingula with resolution of diffuse severe groundglass infiltrates noted on the most recent study from 12/10/2024. Findings most likely represent acute inflammatory/infectious process left lower lung field. Electronically signed by: Alejandrina Todd MD 04/03/2025 03:39 PM EDT RP [employer] Name: Alejandrina Todd Provider ID: [id number] PAGE 2 OF 2 CC'ed Logic: Ordering Provider: BRIAN GARCIA CC Provider: ALEX BAINS Attending Provider: BRIAN GARCIA Referring Provider: BRIAN GARCIA Admitting Provider: BRIAN [facility] 04/06/2025 10:56:17 Xr, Chest, 2 View : [address] [place] [address] Name: CORETTA MOCTEZUMA Exam Date: 04/13/2025 : 1970 Age 55 years Gender: F Physician: NARA JOHNSON Facility: [facility] Facility HSV: Outpatient Exam: CHEST PA ^ [...] ALEJANDRINA TODD 04/13/2025 Thank you for referring CORETTA MOCTEZUMA to [facility]. Legally authenticated by AMADA TINOCO MD 2025-04-13 10:14:40 CC'ed Logic: Ordering Provider: ALEX BAINS CC Provider: ALEX BAINS Attending Provider: ALEX BAINS Referring Provider: ALEX BAINS Admitting Provider: ALEX BAINS Not Available [facility] 04/13/2025 13:55:00 Xr, Chest, 2 View : [address] [place] [address] Name: CORETTA MOCTEZUMA Exam Date: 04/30/2025 : 1970 Age 55 years Gender: F Physician: NARA JOHNSON Facility: [facility] Facility HSV: Outpatient Exam: CHEST PA ^ LAT EXAMINATION: TWO VIEW CHEST XR CLINICAL INDICATION: Female, 55 years old. HISTORY OF PNEUMONIA. TECHNIQUE: 2 View, PA and lateral, X-ray of the chest was performed. [id number]. COMPARISON: No prior exam. FINDINGS: Unchanged calcified granuloma at the left base. Normal heart and pulmonary vascularity. Neither costophrenic angle is blunted. IMPRESSION: Stable calcified granuloma on the left. No new abnormal findings. Electronically signed by: Patrick Herron MD 05/01/2025 08:35 AM EDT RP Dictated By: PATRICK HERRON Transcribed By: Transcribed On: 04/30/2025 3:23 PM Electronically signed by: PATRICK HERRON 04/30/2025 Thank you for referring CORETTA MOCTEZUMA to [facility]. Legally authenticated by GOPAL DE LUNA MD 2025-04-30 15:23:14 CC'ed Logic: Ordering Provider: ALEX BAINS CC Provider: ALEX BAINS Attending Provider: ALEX BAINS Referring Provider: ALEX BAINS Admitting Provider: ALEX BAINS Not Available [facility] 05/04/2025 12:25:29 Problems Name Problem SNOMED Code Status Onset Date Resolution Date Notes Provider Name and Address Organization Details Recorded Time Blood-ting ed feces 4815484712971 02 Active 2024 Henna Griffin NP [address] [place] [address] Drive, [address], [place], [address] , [facility] [place] & [place] 11:20:19 Abdominal pain 07681138 Active 2021 Not Available [facility] 4 08:10:34 Osteoarthr itis 975335027 Active 2021 Not Available [facility] 4 08:10:34 Tobacco user 201969614 Active 2021 Not Available [facility] 4 08:10:34 Chronic constipati on 180394229 Active 2021 Not Available [facility] 4 08:10:34 Irritable bowel syndrome 99602947 Active 2021 Not Available [facility] 4 08:10:34 Chronic obstructiv e pulmonary disease 33059043 Active 2021 Not Available [facility] 4 08:10:34 Chronic pain syndrome 766335791 Active 2021 Not Available [facility] 4 08:10:34 Asthma 797365658 Active 2021 Not Available [facility] 4 08:10:34 Neuropathy 437918407 Active 2021 Not Available [facility] 4 08:10:34 Mixed anxiety and depressive disorder 182143831 Active 2021 Not Available [facility] 4 08:10:34 Well controlled type 2 diabetes mellitus 109158302 Active Stephan Santacruz null, [place] - [facility] - [place] & [place] 4 08:44:51 Dyspnea 993314024 Active Stephan Santacruz null, [place] - [place] - [place] 4 08:44:31 Insect sting 207916584 Active Stephan Santacruz null, [place] 4 08:45:49 Lower abdominal pain 10491020 Active Stephan Santacruz null, [place] 4 08:45:40 Exacerbati on of moderate persistent asthma 874506382 Active Stephan Santacruz null, [place] - [place] 4 08:44:48 Burping 807337644 Active Henna Griffin NP [address], [address], [place], [address] , [place] - [facility] - [place] 5 11:20:12 Tobacco dependence caused by cigarettes 0340049840493 9107 Active ELIA Bradford - [facility] - [facility] & [place] 4 08:44:55 Finding of tobacco use and exposure 817227057 Active Stephan Santacruz null, [place] Ghotra LP[facility] - [facility] & [place] 4 08:46:08 Clostridio ides difficile infection 292199544 Active Stephan Santacruz null, [place] - [facility] - [facility] & [place] 4 08:43:49 Swollen abdomen 58380288 Active Stephan Santacruz null, [place] - [facility] - [facility] & [place] 4 08:44:57 Irritable bowel syndrome characteri zed by constipati on 277397361 Active Stephan Santacruz nullELIA - LP[facility] - [facility] & [place] 4 08:45:43 Esophageal dysphagia 05491818 Active Stephan Santacruz nullELIA - LP[facility] - [facility] & [place] 4 08:44:40 Fall Active Stephan Santacruz nullELIA - LP[facility] - [facility] & [place] 4 08:46:20 Finding of gastrointe stinal tract gas 294453160 Active Stephan Santacruz nullELIA - [facility] - [facility] & [place] 4 08:46:12 Chronic pain 11294828 Active Stephan Santacruz nullELIA - [facility] - [facility] & [place] 4 08:43:44 Gastritis 4169744 Active Stephan Santacruz null, [place] - [facility] - [facility] & [place] 4 08:46:05 Alteration in bowel eliminatio n 783402156 Active Stephan Santacruz null, [place] - [facility] & [place] 4 08:43:22 Generalize d abdominal pain 589378605 Active Stephan Santacruz null, [place] - [facility] & [place] 4 08:46:26 Acute back pain with sciatica 346125720 Active Stephan Ayalales null, [place] - [facility] - [facility] & [place] 4 08:43:13 Idiopathic peripheral autonomic neuropathy 03504618 Active [facility] & [place] 4 08:46:40 Pneumonia 952451343 Active [facility] & [place] 4 08:45:02 Pain of multiple joints 89881705 Active Stephan Santacruz null, [facility] & [place] 4 08:45:18 Abdominal bloating 761700710 Active Stephan Santacruz nullELIA [facility] & [place] 4 08:43:10 Chest pain 44754392 Active Stephan Santacruz nullELIA [facility] & [place] 4 08:43:37 Chronic idiopathic constipati on 33829795 Active [facility] & [place] 4 08:43:41 Moderate persistent asthma 082193157 Active [facility] & [place] 4 08:45:21 Exogenous hyperlipid emia 979753052 Active [facility] & [place] 4 08:46:23 Allergic rhinitis 44906014 Active ELIA [facility] & [place] 4 08:43:17 History of drug abuse 206172245 Active [facility] & [place] 4 08:46:29 Gastro-eso phageal reflux disease with esophagiti s 927501799 Active Stephan Santacruz nullELIA & [place] 4 08:46:01 Injury of nose 46530697 Active [facility] [place] 4 08:45:53 Disturbanc e in sleep behavior 64778841 Active Stephan [facility]ac[facility] & [place] 4 08:44:24 Cocaine dependence in remission 850712782 Active Stephan Santacruz nullELIA [facility] & [place] 4 08:43:53 Osteoarthr itis of multiple joints 182597141 Active Stephan Santacruz null, [place] - [facility] - & [place] 4 08:45:04 Fatigue 66692564 Active Stephan Santacruz null, [place] - [facility] - & [place] 4 08:46:16 Daytime somnolence 819966376991 Active Stephan Santacruz null, [place] - [facility] - & [place] 4 08:44:07 Nausea 047253622 Active Henna Griffin NP [address], [address], [place], [address] , [place] - [facility] - [facility] & [place] 5 11:20:00 Gastroesop hageal reflux disease 762498376 Active Stephan Santacruz null, [place] - [facility] - & [place] 4 08:45:59 CT of chest abnormal 1027314582056 9102 Active Stephan Santacruz null, [place] - [facility] - & [place] 4 08:44:03 Hyperlipid emia 08007666 Active Stephan Santacruz null, [place] - [facility] - & [place] 4 08:46:34 Type 2 diabetes mellitus without complicati on 253380289 Active Not Available [facility] 4 08:10:34 Anxiety 86242214 Active Stephan Santacruz null, [place] - [facility] - & [place] 4 08:43:26 Obstructiv e sleep apnea syndrome 09191355 Active Stephan Santacruz null, [place] - [facility] - & [place] 4 08:45:09 Nodule of lung 112584801 Active Stephan Santacruz null, [place] - [facility] - y & [place] 4 08:45:12 Diarrhea 14494228 Active Stephan Santacruz null, [place] - [facility] - & [place] 4 08:44:14 Binge drinker 413613803 Active Stephan Santacruz null, [place] - [facility] - y & [place] 4 08:43:30 Epigastric pain 51699276 Active Stephan Santacruz null, [place] [facility] [place] 4 08:44:36 Mild intermitte nt asthma 335848848 Active Stephan Santacruz null, [place] - [place] - [facility] & [place] 4 08:45:29 Lumbar spondylosi s 585775178 Active Stephan Santacruz null, [place] [facility] & [place] 4 08:45:35 Constipati on 99706791 Active Stephan Santacruz null, [place] [facility] & [place] 4 08:43:57 Dysphagia 98324453 Active 2022 Stephan Santacruz null, [place] [facility] & [place] 4 08:44:28 Diarrhea of presumed infectious origin 62429395 Active 2022 Stephan Santacruz null, [place] - [facility] & [place] 4 08:44:18 Infection by Strongyloi jeni 4383142 Active 2022 Stephan Santacruz null, [place] [facility] & [place] 4 08:46:43 Gastroesop hageal reflux disease without esophagiti s 658748786 Active 2022 Not Available [facility] 4 08:10:34 Obesity 216539819 Active 2023 Nara Johnson MD [address] [place] [address], [address] , [place] - [facility] - [place] & [place] 4 10:22:51 Notes:Some problems listed i n Document: #[id number] could not be added to this patient's chart. Please review this document and add these problems to the patient's chart manually as needed. Problem Notes None recorded. Procedures Surgical History Date Name Laterality Status Provider Name and Address Organization Details Recorded Time 2024 6 Minute Walk Test completed Trini Phillips [place] - [place] & [place] 5 12:06:58 2023 Medicare Annual Wellness Visit Health Risk Assessment completed Saba Levy [place] - [place] - [place] & [place] 4 09:13:41 2023 Nasal Endoscopy completed Elton Parra [place] - [place] - [facility] & [place] 4 14:11:07 2022 Fiberoptic Laryngoscopy completed Elton Parra [place] - [facility] & [place] 3 15:34:17 2017 colonoscopy completed Henna Griffin NP [address], [address], [place], [address], [place] - [place] - [place] & [place] 5 13:08:30 2017 esophagogastroduodenoscopy completed Alicia Griffin NP [address], [address], [place], [address], [place] & [place] 5 13:08:39 2016 Unlisted px dentalvlr strux completed Akhilm ie Danieljennifer [place] - [place] [facility] & [place] 2 12:01:52 2015 esophagogastroduodenoscopy completed Ariella Levy [place] [facility] & [place] 2 12:01:40 2007 Partial hysterectomy completed Saba Cam [place] [facility] & [place] 2 11:59:20 Sinus Surgery completed Irma Jin [place] - [facility] & [place] 4 13:42:39 parathyroidectomy completed Sabachin Sanchezdinedilson [place] - [place] [facility] & [place] 2 12:00:51 Imaging Results None recorded. Procedure Notes None recorded. Medical Equipment None Reported. Allergies Allergen ID Allergen Name Allergen Category Reaction Reaction Severity Criticality Documentation Date Start Date Code Code System Note Provider Name and Address Organization Details Recorded Time 15063 Substance with sulfonami de structure and antibacte rial mechanism of action (substanc e) medicatio n abdominal pain nausea vomiting mild moderate moderate Not available 08/24/2022 61512 8003 SNOMED Not Available [facility] 2 14:26:01 29573 codeine medicatio n nausea mild low 08/24/2022 2670 RxNorm Bria Colon null, [place] - [facility] [facility] & [place] 5 12:54:11 Medications Name Sig Start Date [...] Ultra-Fine Mini Pen Needle 31 gauge x /16 04/01 completed Not Available Not Available Not [...] Updated DateTime 5 154.94 cm 30.4 kg/m2 39452.3 7 g 97.4 [degF] 94 % 94 % 94 /min 18 /min 121 mm[Hg] 81 mm[Hg] Stephan Ayalales [place] - [place] [facility] & [place] 5 10:33:09 Date Recorded Body height Body mass index (BMI) Body weight Body temperature Oxygen saturation Oxygen saturation in Arterial blood by Pulse oximetry Heart rate Provider Name and Address Organization Details Last Updated DateTime 5 154.94 cm 31.8 kg/m2 28926.2 4 g 97.1 [degF] 97 % 97 % 76 /min Anu [place] - NT [facility] & [place] 5 11:02:30 Date Recorded Body height Body mass index (BMI) Body weight Body temperature Oxygen saturation Oxygen saturation in Arterial blood by Pulse oximetry Inhaled oxygen flow rate Heart rate Respiratory rate Systolic blood pressure Diastolic blood pressure Provider Name and Address Organization Details Last Updated DateTime 5 154.94 cm 33.3 kg/m2 10269.6 9 g 97.2 [degF] 92 % 92 % 2 L/min 74 /min 18 /min 124 mm[Hg] 74 mm[Hg] Saba Levy [place] - LPNT [facility] & [place] 5 09:04:45 Date Recorded Body height Body mass index (BMI) Body weight Body temperature Oxygen saturation Oxygen saturation in Arterial blood by Pulse oximetry Inhaled oxygen flow rate Heart rate Respiratory rate Systolic blood pressure Diastolic blood pressure Provider Name and Address Organization Details Last Updated DateTime 5 154.94 cm 31.1 kg/m2 67071.0 2 g 97.4 [degF] 94 % 94 % 2 L/min 85 /min 16 /min 124 mm[Hg] 87 mm[Hg] Saba RODRIGEZ [facility] & [place] 5 14:40:08 Date Recorded Body height Body mass index (BMI) Body weight Body temperature Oxygen saturation Oxygen saturation in Arterial blood by Pulse oximetry Inhaled oxygen flow rate Heart rate Respiratory rate Systolic blood pressure Diastolic blood pressure Provider Name and Address Organization Details Last Updated DateTime 5 154.94 cm 32.8 kg/m2 55644.9 2 g 98.1 [degF] 96 % 96 % 2 L/min 82 /min 14 /min 154 mm[Hg] 86 mm[Hg] Saba RODRIGEZ [facility] & [place] 5 11:48:04 Social History Question Answer Notes LastModified by Cuff-Protectizat ion Details LastModified Time Tobacco Smoking Status Former Smoker Saba zapata ELIA [facility] & [place] 12/29/2024 14:30:53 Do You Have An Advance Directive? No [email or web address] Information n ot available 05/05/2024 Do You Wear A Helmet When Biking? Yes [email or web address] Information not available 05/05/2024 Are You Blind Or Do You Have Difficulty Seeing? No Information n ot available 05/05/2024 What Is Your Level Of Caffeine Consumption? None [email or web address] Information not available 05/05/2024 In The 14 Days Before Symptom Onset, Have You Had Close Contact With A Laboratory-confirm ed COVID-19 While That Case Was Ill? No [email or web address] Information n ot available 05/05/2024 In The 14 Days Before Symptom Onset, Have You Had Close Contact With A Person Who Is Under Investigation For COVID-19 While That Person Was Ill? No [email or web address] Information not available 05/05/2024 Have You Been To An Area Known To Be High Risk For COVID-19? No [email or web address] Information not available 05/05/2024 Are You Deaf Or Do You Have Serious Difficulty Hearing? No [email or web address] Information not available 05/05/2024 What Type Of Diet Are You Following? REGULAR [email or web address] Information n ot available 05/05/2024 Have You Processed Blood Or Body Fluids From An Ebola Virus Disease Patient Without Appropriate PPE? No [email or web address] Information not available 05/05/2024 Do You Reside In Or Have You Traveled To An Area Where Ebola Virus Transmission Is Active? No [email or web address] Information not available 05/05/2024 Have There Been Any Changes To Your Family Or Social Situation? No [email or web address] Information no t available 05/05/2024 What Is The Fluoride Status Of Your Home? Unknown [email or web address] Information not available 05/05/2024 When Did You Quit Smoking? 1-5yearssince lastcigarette Information not available 12/29/2024 Are There Any Guns Present In Your Home? No [email or web address] Information not available 05/05/2024 Have You Recently Or Are You Planning To Travel To An Area With Zika Virus? No [email or web address] Information not available 05/05/2024 Do You Use Insect Repellent Routinely? Yes [email or web address] Information not available 05/05/2024 In General, Would [...] Bread, 1 Cup Of Whole-grain Or High-fiber Fytjz-uk-bts Cereal, 1 2 Cup Of Cooked Cereal Such As Oatmeal, Or 1 2 Cup Of Cooked Brown Rice Or Whole Wheat Pasta.) 1-2 Servings Per Day Information not available 05/27/2024 In The Past 7 Days, How Many Servings Of Fried Or High-fat Foods Did You Typically Eat Each Day? (Examples Include Fried Chicken, Fried Fish, [place], Kinyarwanda [place], Potato Chips, [place] Chips, Doughnuts, Creamy Salad Dressings, And Foods [...] Past 7 Days, How Often Have You Excel Sleepy During The Daytime? Rarely Information not [...] Do You Feel Safe At Home? Yes [email or web address] Information not available 05/05/2024 Do You Have A Medical Power Of Container Washer? No [email or web address] Information not available 05/05/2024 What Was The Date Of Your Most Recent Tobacco Screening? 05/20/2024 [email or web address] Information not available 05/20/2024 What Is Your Current Pack Years? 20-29packyear s Information not available 08/24/2022 Do You Have Any Pets? No [email or web address] Information not available 05/05/2024 What Is Your Relationship Status? Domestic Partner Information not available 05/27/2024 Do You Use Your Seat Belt Or Car Seat Routinely? Yes [email or web address] Information not available 05/05/2024 Are You Sexually Active? Yes Information not available 05/27/2024 Do You Have Smoke And Carbon Monoxide Detectors In Your Home? Yes [email or web address] Information not available 05/05/2024 Are You Passively Exposed To Smoke? No [email or web address] Information no t available 05/05/2024 How Much Tobacco Do You Smoke? 1 PPD Information not available 08/24/2022 Do You Use Sunscreen Routinely? Yes [email or web address] Information not available 05/05/2024 Has Tobacco Cessation Counseling Been Provided? Yes Information not available 08/24/2022 On What Date Was Tobacco Cessation Counseling Provided? 05/20/2024 [email or web address] Information not available 05/20/2024 Do You Have Difficulty Walking Or Climbing Stairs? No Information not available 05/05/2024 Are You Currently In School? No [email or web address] Information not available 05/05/2024 Sex: Unknown Functional [...] available 08/24/2022 Are you currently employed? No [email or web address] Information not available 05/05/2024 Do you have transportation difficulties? No [email or web address] Information not available 05/05/2024 Are you able to walk? YESWOREST [email or web address] Information not available 05/05/2024 Do you have difficulty doing errands alone? No [email or web address] Information not available 05/05/2024 Are you able to care for yourself? Yes [email or web address] Information not available 05/05/2024 Do you have difficulty dressing or bathing? No [email or web address] Information not available 05/05/2024 What is your exercise level? None [email or web address] Information not available 05/05/2024 Mental Status Question Answer Note LastModified by Organizat ion Details LastModified Time Do you feel stressed (tense, restless, nervous, or anxious, or unable to sleep at night)? [id number] [email or web address] Information not available 05/05/2024 Do you have difficulty concentrating, remembering or making decisions? No [email or web address] Information no t available 05/05/2024 Family History [...] N Immune System Disorder N Heart Attack (NH) N Diabetes Y Bleeding Disorder N Tuberculosis [...] PF, 0.5 mL 1 completed Not Available [facility] 01/02/2024 08:10:35 TST-PPD intradermal 2 completed Not Available Critical [facility] hospital 01/02/2024 08:10:35 COVID-19, mRNA, LNP-S, PF, 100 mcg/0.5mL dose or 50 mcg/0.25mL dose 2 completed Ronit Flint null, [place] - LPNT - [place] & [place] 02/24/2024 12:29:29 COVID-19 vaccine, vector-nr, rS-Ad26, PF, 0.5 mL 1 completed Ronit Brittney null, [place] - [facility] - [place] & [place] 02/24/2024 12:29:29 COVID-19, mRNA, LNP-S, bivalent, PF, 50 mcg/0.5 mL or 25mcg/0.25 mL dose 3 completed Ronit Flint null, [place] - [facility] - [place] & [place] 02/24/2024 12:29:29 COVID-19, mRNA, LNP-S, PF, 50 mcg/0.5 mL 3 completed Ronit Brittney null, [place] - [facility] - [place] & [place] 02/24/2024 12:29:29 Past Encounters Encounter ID Performer Location Encounter Start Date Encounter Closed Date Diagnosis/Indication Diagnosis SNOMED-CT Code Diagnosis ICD10 Code Diagnosis Note [id number] Nara Johnson MD [facility] [address] [address] 08/24/2022 11:36:43 08/24/2022 12:12:00 Acute sinusitis 12062031 J01.90 Hyperlipidemia 17499126 E78.5 WILL REFILL PRAVASTATI N Type 2 tiki betes mellitus without complication 168111016 E11.9 PATIENT'S FINGERSTIC K BLOOD SUGAR CHECK WAS 128. [id number] Nara Johnson MD [address] [address] 10/05/2022 09:26:34 10/05/2022 10:07:26 Asthma 333173362 J45.909 labs drawn by Erick RT AC Chronic ob structive pulmonary disease 86964319 J44.9 pt to continue on o2 Chronic pain syndrome 37 9239908 G89.4 pt to continue with suboxone Fibromyalgia 475612353 M 79.7 Irritable bowel syndrome 93267783 K58.9 Mixed anxi ety and depressive disorder 171099801 F41.8 Type 2 tiki betes mellitus without complication 466207147 E11.9 [id number] Nara Johnson MD [place] [id number] 1 10/31/2022 09:42:13 10/31/2022 10:34:29 Cough 67344152 R05.9 Acute sinusitis 14693493 J01.90 [id number] Henna Griffin NP [facility] [address] [place] [id number] 8 12/13/2022 09:10:50 12/13/2022 09:58:10 Gastroesophageal reflux disease 096116282 K21.9 Controlled with use of Protonix and famotidine . Will send refills today. Recommend continued reflux precaution s with avoidance of food triggers. Irritable bowel syndrome characterized by constipation 217981290 K58.1 Improved with use of Linzess 290 mcg. Currently without medication and experienci ng recurrent symptoms. Linzess 290 mcg samples given to pt. Recommend increased water intake. Previously failed treatment with MiraLax, fiber, OTC stool softeners as well as OTC laxatives. Dysphagia 00326800 R13.1 0 Occasional episodes of dysphagia to medication s. I have instructed patient to take medication with small sips of water or applesauce and avoid taking multiple medication s at 1 time. Recommend esophagram and MBS to further evaluate. [id number] Nara Johnson MD [address] [address] 01/09/2023 11:22:49 01/09/2023 11:23:57 Fibromyalgia 516113074 M79.7 Asthma 233576093 J45.90 9 Chronic pain syndrome 37 2430485 G89.4 pt to continue with suboxone Osteoarthritis 911209206 M19.90 Chronic ob structive pulmonary disease 24230438 J44.9 pt to continue on o2 walking test indicates need for oxygen [id number] Rose Maher MD [facility] [address] [facility], [place] [address] 01/23/2023 14:34:19 01/23/2023 15:40:22 Hoarse 53276037 R49.0 Explained to the patient I saw [...] her back as needed. Oropharyng eal dysphagia 28936772 R13.12 Tobacco de pendence syndrome 37291369 F17.200 Dependence on supplemental oxygen 2810042530 07 Z99.81 Laryngopha ryngeal reflux 489896295 K21.9 [id number] Nara Johnson MD [address] [address] 02/07/2023 10:31:49 02/07/2023 10:55:06 Acute exacerbation of chronic obstructive pulmonary disease 989658919 J44.1 will treat patient with IM antibiotic s and steroids. Tobacco de pendence syndrome 15613116 F17.200 we have had extensive discussion s [...] at home and will start using them. [id number] JAYLIN [facility] [address] [address] 02/14/2023 13:53:39 02/23/2023 12:39:47 Gastroesophageal reflux disease 809265754 K21.9 Uncontroll ed symptoms at this time with use of Protonix and Famotidine . Failed treatment wtih Omeprazole , Nexium, and Prevacid in the past. I have recommende d strict reflux precaution s as well as smoking cessation and decreased caffeine intake. Recommend Dexilant 60 mg po daily with use of OTC pepcid complete BID PRN. Irritable bowel syndrome characterized by constipation 358816168 K58.1 Controlled with Linzess 290 mcg. Recommend continued use. Previously failed treatment with MiraLax, fiber, OTC stool softeners as well as OTC laxatives. Dysphagia 85121711 R13.1 0 Occasional episodes of dysphagia to medication s. Somewhat improved after taking medication with applesauce . Recommend esophagram and MBS to further evaluate. Recently evaluated by ENT and diagnosed with LPR. [id number] Nara Johnson MD [facility] [address] [address] 02/19/2023 12:17:19 02/19/2023 12:58:35 Acute bronchitis 72088127 J20.9 patient has been advised to start a different antibiotic . She has been informed that she needs to go to the emergency department if she does not improve. [id number] Henna Griffin NP [address] [address] 03/21/2023 13:14:00 03/21/2023 14:29:55 Dysphagia 44133263 R13.10 Occasional episodes of dysphagia to medication s. Somewhat improved after taking medication with applesauce . Plan for esophagram and MBS to further evaluate. Previously evaluated by ENT and diagnosed with LPR. Diarrhea o f presumed infectious origin 44858158 A09 3 week history of diarrhea, 10-12 watery loose stool with urgency. Recent use of antibiotic s for COPD exacerbati on. Recommend stool studies to further evaluate. Recommend Xray abd KUB to r/o underlying stool burden due to hx of constipati on. [id number] Nara Johnson MD [address] [place] [address] 06/08/2023 09:48:36 06/08/2023 10:16:38 Type 2 diabetes mellitus without complication 659841560 E11.9 Continue with current regimen. she should be on 0.5 mg of Ozempic weekly. Patient admits to giving herself 0.25. She will increase her dose appropriat emerald. Osteoarthritis 977566805 M19.90 Controlled with diclofenac . Will renew her prescripti on. Mixed anxi ety and depressive disorder 143474514 F41.8 Stable Neuropathy 380341077 G62 .9 stable [id number] Nara Johnson MD [address] [place] [address] 07/03/2023 09:52:06 07/03/2023 10:11:13 Type 2 diabetes mellitus without complication 837577888 E11.9 Allergic rhinitis 227729 04 J30.9 I WILL GIVE PATIENT A PRESCRIPTI ON FOR SOME STEROIDS. WILL ALSO CHANGE HER ZYRTEC 2 FEXOFENADI NE. Gastroesop hageal reflux disease without esophagitis 793166687 K21.9 WILL STOP PATIENT'S PANTOPRAZO LE AND START HER ON NEXIUM. SHE IS TO CONTINUE WITH HER FAMOTIDINE . [id number] Pato Johnston MD [address] [place] [address] 07/19/2023 11:23:32 07/19/2023 11:52:19 Acute exacerbation of chronic obstructive pulmonary disease 379525272 J44.1 oxygen-dep endent. Patient has inhalers and nebulizer at home. She did not tolerate prednisone . We will treat with cefdinir for sinus drainage and productive cough.Seek medical care symptoms become severe. Acute bronchitis 4511424 2 J20.9 Productive cough yellowish sputum. No wheezes are heard coarse breath sounds in the lungs. [id number] Nara Johnson MD [address] [place] [address] 08/14/2023 11:06:56 08/14/2023 12:01:25 Dizziness 124794173 R42 Treat as below Acute sinusitis 87827619 J01.90 will give patient a shot of Rocephin as well as Solu-Medro l. Will also send her home with a prescripti on for doxycyclin e as well as prednisone . Should her symptoms worsen she has been advised to go to the emergency department . Lumbago with sciatica 20 4428226 M54.40 patient reports a long history of sciatica. Will give her a shot of steroids today. She has been instructed to follow-up with a pain specialist . [id number] Nara Johnson MD [facility] [address] [facility] [place] [address] 11/28/2023 10:17:48 11/28/2023 12:38:42 Congestion of nasal sinus 35196924 R09.81 Allergic rhinitis 611304 04 J30.9 patient states that she is unable to tolerate p.o. steroids. She has tried several medication s to no avail. I have told her to stop taking the Michelle and Zyrtec. She will start taking Xyzal and will refer her to an disaster director. Today, will give her a shot of steroids. [id number] Radha Torres M.D [facility] [address] [place] [address] [place] [address] 12/13/2023 13:02:09 12/13/2023 14:20:28 Moderate persistent asthma 410954536 J45.40 Dyspnea 440096985 R06.00 Nicotine dependence 5629 4008 F17.200 Screening for malignant neoplasm of respiratory tract 928189448 Z12.2 Chronic ob structive pulmonary disease 19072471 J44.9 [id number] Rose Maher MD [facility] - [address] [facility], [address] [place] [address] 12/18/2023 13:26:55 12/18/2023 14:07:46 Dyspnea at rest 152622030 R06.00 O2 saturation is hovering around 93/95 while using oxygen and this is likely baseline for her. Will send her for chest xray for further evaluation . Explained should her condition worsen, she should be seen in the ER. I will be in touch with the results of her xray when they are received. Allergic rhinitis 445161 04 J30.9 Explained to patient I saw nothing concerning on nasal endoscopy today in office. No sign of nasal polyps/gely or/lesion/ mass seen. Will plan for allergy test at her convenien e. Explained she needs to come off of her hydroxyzin e and antihistam ine five days prior to testing and we will have to schedule at least 30 days away from her last steroids. Will discuss options at that visit. Will see her back sooner if needed. [id number] Nara Johnson MD [address] [place] [address] 12/12/2023 10:49:10 12/12/2023 11:49:59 Acute exacerbation of chronic obstructive pulmonary disease 005347845 J44.1 will give pt prescripti on for doxycyclin e. alos pt needs to f/u with pulmonolog y, we have made an appt for her pulmonogy [id number] Radha Torres M.D [facility] [address] [place] [address] 03/19/2024 11:31:17 03/19/2024 12:09:27 Moderate persistent asthma 830062725 J45.40 Dyspnea 500291559 R06.00 Nicotine dependence 5629 4008 F17.200 Screening for malignant neoplasm of respiratory tract 518124911 Z12.2 Chronic ob structive pulmonary disease 50148954 J44.9 [id number] Nara Johnson MD [address] [place] [address] 02/25/2024 09:52:23 02/25/2024 10:39:52 Type 2 diabetes mellitus without complication 786346388 E11.9 a1c check today Chronic ob structive pulmonary disease 59515035 J44.9 pt to continue on o2 walking test indicates need for oxygen Her oxygen drops to less than 88% on room air with walking test. O2 sat improved with oxygen to 96%. [id number] Nara Johnson MD [address] [place] [address] 02/27/2024 10:48:24 02/27/2024 11:30:45 Obesity 504578753 E66.9 will refer patient to dietitian [id number] Nara Johnson MD [address] [place] [address] 04/01/2024 09:58:08 04/01/2024 10:37:23 Obesity 931128933 E66.9 patient has been seen by a dietitian. She has a new diet plan. She is also on Ozempic. Patient states that she has lost 6 lb since her last visit based on her home scales. I have encouraged her to continue with her current regimen. Will continue to see patient monthly for now. [id number] Rose Maher MD [facility] [address] [facility] [place] [address] 03/25/2024 08:49:04 03/25/2024 09:17:58 Allergic rhinitis 08826398 J30.9 Patient states she has been taking [...] will discuss treatment options at that time. [id number] Nara Johnson MD [place] [address] [facility] [place] [address] 05/27/2024 08:57:05 05/27/2024 09:20:38 Type 2 diabetes mellitus without complication 768413558 E11.9 a1c check today Adult heal th examination 336244600 Z00.00 Allergic rhinitis 394093 04 J30.9 Continue with current regimen. Asthma 020690167 J45.90 9 Patient continues to follow-up with pulmonolog y. Chronic pain syndrome 37 2479752 G89.4 pt to continue with suboxone Well contr olled type 2 diabetes mellitus 880070813 E11.9 Patient to continue with regimen that includes Ozempic. At her request will increase Ozempic to help assist in weight loss. Screening for malignant neoplasm of colon 687739809 Z12.11 will order colonoscop y. [id number] Henna Griffin NP [facility] [address] [facility] [address] 04/02/2024 11:20:25 04/08/2024 15:36:30 Dysphagia 48211139 R13.10 continued episodes of dysphagia with medication s. improved with taking medication with applesauce . Esophagram and modified barium swallow 04/02/2023 with mild gastroesop hageal reflux without aspiration noted. Patient denies worsening symptoms at this time. Consider repeat modified barium swallow with speech therapy evaluation if she experience s worsening symptoms. Abdominal bloating 68270 9008 R14.0 Recently improved with dietary modificati on. Gastro-eso phageal reflux disease with esophagitis 142454907 K21.00 Controlled with daily PPI. Recommend continued reflux precaution s and avoidance of known food triggers. Chronic id iopathic constipation 72510651 K59.04 Currently controlled with use of MiraLax and stool softeners. [id number] Nara Johnson MD [address] [place] [address] 05/05/2024 11:05:34 05/06/2024 08:54:15 Acute sinusitis 06757989 J01.90 Type 2 tiki betes mellitus without complication 546424901 E11.9 a1c check today Hyperlipid emia screening 845802514 Z13.220 will order lab work. Thyroid di sorder screening 500122231 Z13.29 will order a TSH today. [id number] Pato Johnston MD [address] [place] [address] 05/20/2024 08:28:07 05/21/2024 08:42:27 Acute upper respiratory infection 99811727 J06.9 testing is all negative. Recurrent sinusitis 1956 10041 J32.9 Patient seen and treated 2 weeks ago states symptoms did not resolve. Still blowing out yellow drainage from nose. We will treat with Levaquin. Continue other medicines as prescribed [id number] Nara Johnson MD [place] [address] [facility] [place] [address] 06/30/2024 10:13:38 06/30/2024 11:33:51 Acute upper respiratory infection 64102569 J06.9 will treat patient empiricall y with antibiotic s and steroids. Patient refuses p.o. prednisone but will accept a shot of Solu-Medro l here today.Day ent has been advised to go to the emergency department if she does not improve. She may require x-ray studies. [id number] Nara Johnson MD [facility] [address] [facility] [place] [address] 07/07/2024 11:46:58 07/07/2024 13:47:48 Injury of left foot 6506926032 4089704 S99.922A will obtain x-rays. Patient has been advised to elevate and ice her foot. Acute bronchitis 4923634 2 J20.9 patient has been advised to start a different antibiotic . She has been informed that she needs to go to the emergency department if she does not improve. [id number] Radha Torres M.D [facility] [address] [place] [address] 07/21/2024 11:00:47 07/21/2024 11:44:03 Moderate persistent asthma 606858583 J45.40 Dyspnea 271337275 R06.00 Nicotine dependence 5629 4008 F17.200 Screening for malignant neoplasm of respiratory tract 101077118 Z12.2 Chronic ob structive pulmonary disease 58638070 J44.9 Allergic rhinitis 979854 04 J30.9 Acid reflux 523578265 K2 1.9 [id number] Rahda Torres M.D [facility] [address] [place] [address] 12/29/2024 11:21:23 12/29/2024 11:53:56 Moderate persistent asthma 806883534 J45.40 Dyspnea 391440422 R06.00 Nicotine dependence 5629 4008 F17.200 Screening for malignant neoplasm of respiratory tract 005199520 Z12.2 Chronic ob structive pulmonary disease 97840904 J44.9 Allergic rhinitis 704704 04 J30.9 Acid reflux 718422109 K2 1.9 Nodule of lung 432772346 R91.1 [id number] Nara Johnson MD [facility] [address] [place] [address] 12/29/2024 13:34:01 12/29/2024 14:53:40 Anxiety 83738811 F41.9 Patient to restart her buspirone. Will also increase her paroxetine to 40 mg a day. Insomnia 199006992 G47.0 0 have told patient to stop taking trazodone. Will try her on Zolpidem. She is to follow-up in a week. [id number] Nara Johnson MD [address] [place] [address] 01/05/2025 10:32:41 01/05/2025 11:29:28 Anxiety 66577535 F41.9 I will add alprazolam to her regimen Chronic pain syndrome 37 0268972 G89.4 patient is weaning herself off Suboxone. Exogenous hyperlipidemia 270753062 E78.49 Disturbanc e in sleep behavior 46415382 G47.9 Gastro-eso phageal reflux disease with esophagitis 929563552 K21.00 [id number] Nara Johnson MD [address] [place] [address] 01/12/2025 14:16:42 01/12/2025 14:54:16 Type 2 diabetes mellitus without complication 802866912 E11.9 a1c check today Anxiety [id number] F41.9 Patient is tolerating alprazolam well. She reports improvemen t in her symptoms. Will continue on current regimen for now. Chronic ob structive pulmonary disease [id number] J44.9 Patient to continue with oxygen at this time. Hyperlipid emia screening 350209144 Z13.220 will order lab work. Thyroid di sorder screening 595232429 Z13.29 will order a TSH today. Dysuria [id number] R30.0 [id number] Nara Johnson MD [address] [place] [address] 02/16/2025 10:11:27 02/17/2025 08:03:12 Anxiety 93430566 F41.9 Continue with current regimen. Asthma 944980655 J45.90 9 Patient's asthma remained stable. She does follow-up with pulmonolog y Chronic ob structive pulmonary disease 12893220 J44.9 Patient to continue with oxygen at this time. Mixed urin elizabeth incontinence 430019222 N39.46 will refer patient to specialist Mixed anxi ety and depressive disorder 656343444 F41.8 patient states that she has an appointmen t to see a psychiatri st next week. [id number] RAAD BRAVO NP [address] [place] [address] 02/02/2025 12:43:44 02/02/2025 16:34:30 Dysuria [id number] R30.0 [id number] Henna Griffin NP [address] [place] [address] 04/01/2025 10:39:31 04/01/2025 11:19:03 Gastro-esophageal reflux disease with esophagitis 790906852 K21.00 Continues pantoprazo le 40 mg daily for treatment. Recently experienci ng increased dyspepsia and belching. Recommend continued use of PPI as prescribed as well as reflux precaution s. Plan for EGD to further evaluate. Chronic id iopathic constipation 26579249 K59.04 Currently controlled with use of MiraLax and stool softeners. Nausea 089776215 R11.0 daily episodes of nausea and dyspepsia for the past several weeks. She is currently prescribed NSAIDs for arthritis. Recommend EGD to evaluate for erosive gastritis, PUD, other. Burping 857971653 R14.2 Increased belching and dyspepsia over the past several weeks. Recommend continued use of PPI as prescribed . Plan for EGD as above to further evaluate. Blood-tinged feces 95604 40861 40063 K92.1 Episodes of hematochez ia that occurred several weeks ago. Currently denies symptoms. Recommend colonoscop y to further evaluate to rule out underlying colon polyps, lesions, internal hemorrhoid s. Last colonoscop y 02/2018. Family his tory of cancer of colon 638236692 Z80.0 Patient's father with history colon cancer. Plan for colonoscop y as above. [id number] Nara Johnson MD [facility] [address] [place] [address] 04/13/2025 08:50:17 04/13/2025 10:07:55 Acute cough [id number] R05.1 Will obtain an x-ray. If it shows any significan t findings will go ahead and put patient on antibiotic s and steroids. We are currently waiting results. Anxiety 48086545 F41.9 Continue with current regimen. Well contr olled type 2 diabetes mellitus 648015429 E11.9 Patient to continue with regimen that includes Ozempic. At her request will increase Ozempic to help assist in weight loss. Body mass index 30+ - obesity 207783574 E66.9 patient to restart her Ozempic this should help her weight gain journey. She has also been advised to continue with diet and exercise. [id number] Nara Johnson MD [facility] [address] [place] [address] 04/30/2025 14:26:14 04/30/2025 14:44:39 History of pneumonia 911433707 Z87.01 will obtain chest x-ray and start patient on Levaquin.I am going to refer her for pulmonary rehab. Nausea 825586540 R11.0 Patient has been advised to try Reglan for her chronic nausea. Obstructive emphysema 16 664574 J43.9 Chronic ob structive pulmonary disease 90570961 J44.9 Patient to continue with oxygen at this time. [id number] Nara Johnson MD [facility] [address] [place] [address] 05/11/2025 11:31:10 05/11/2025 12:05:58 Dyspnea on exertion 17065354 R06.09 patient exam is completely unremarkab le. We have had extensive discussion s regarding anxiety and how anxiety with impacted rebreathin g. Patient admits that she is extremely worried about getting pneumonia again. She has a history of chronic COPD and she is on oxygen 18/06. She appears to be stable at this time. Anxiety 44020808 F41.9 We have discussed various activities that will help reduce her codependen cy on her mother. Patient has agreed to register for the [employer]. She has also agrees to register for the [facility] to do exercise classes. Health Concerns Section Related Observation LastModified by Organization Detai ls LastModified Time None Recorded Concern Status LastModified by Organization Details LastModified Time None Recorded Advance Directives Directive N: Payers Insurance Date Sequence Insurance Name Policy Number Policy Reyes Covered Member ID Reyes Member ID Guarantor Name 05/11/2025 1 [employer] (MEDICARE REPLACEMENT/AD VANTAGE - PPO) Coretta Moctezuma [id number] Coretta Moctezuma 03/19/2024 2 [place] Coretta Rolon [id number] Coretta [place] 06/14/2024 1 [place] H[place] [id number] Coretta [place] [id number] Coretta [place] 03/19/2024 2 [place] [id number] Coretta Rhianna [id number] Coretta Rhianna 06/14/2024 2 [place] [facility] HEALTH CHOICES - FFS/TRADITIONA L Coretta Rhianna [id number] Coretta [place] 03/19/2024 1 [employer] [place] Coretta [place] [id number] Coretta Rhianna 12/13/2023 1 [place] Coretta [place] [id number] Coretta Rhianna 05/11/2025 [place] [facility] Coretta [place] [id number] Coretta Rhianna 04/30/2025 2 [place] [facility] [employer] - FFS/TRADITIONA L Coretta [place] [id number] Coretta [place] 12/09/2024 1 [place] [id number] Coretta [place] [id number] Coretta Rhianna Notes Date Note Type Note Provider Name and Address Organization Details Recorded Time 02/16/2025 text/html Patient presents for routine follow-up. She reports improvement in her anxiety. She continues to take medication as prescribed. Nara Johnson MD [address] [place] [address], [phone] & [place] 02/16/2025 10:53:35 04/01/2025 text/html Patient returns to [...] history of colon cancer. Henna Griffin NP [address] [place] [address], [address], [place], [phone], [facility] & [place] 04/01/2025 13:09:48 04/13/2025 text/html SDScomplains of a [...] alprazolam and her Ozempic. Nara Johnson MD [address] [place] [address], [phone], [facility] & [place] 04/13/2025 10:23:21 04/30/2025 text/html patient presents today to follow-up from hospital admission. Patient was admitted for pneumonia 2 weeks ago. She states that she was sent home on antibiotics however she has continued to cough. Cough is productive of yellowish sputum. Nara Johnson MD [address] [place] [address], [phone], [facility] & [place] 04/30/2025 15:22:50 05/11/2025 text/html patient presents today for routine follow-up. She is also concerned about her breathing and claims to be congested. Patient also suffers from anxiety Nara Johnson MD [address] [place] [address], [phone], [facility] & [place] 05/11/2025 12:17:27 OBGyn Episode No OBEpisode recorded.
--- OUTSIDE RECORDS SUMMARY | 2025-05-17 08:38 | XMS_ITS | Continuity of Care Document ---
Author Organization [place] [facility] Address [address] [place] [address] Care Team Providers Care Objective C Developer Name Role Phone HENNA GRIFFIN Photoengraving Etcher TUTU JOHNSON Primary Care Provider Assessment No assessment recorded. Plan of Treatment Reminders Order Date Submit Date Provider Last Modified By Organization Details Last Modified Time Details Appointments OV EST 2024 01:15P Sherrill Page M.D Not available [...] y procedur e (EGD) (PROC) 2024 025 [facility] (Central Scheduling), [address] [place] [address] [place], [address], 04/29/2025 12:53:29 colonosc opy procedur e (PROC) 2024 025 [facility] (Central Scheduling), [address] [place] [address] [place], [address], 04/08/2025 07:56:30 Surgeries None recorded . Imaging None recorded . Medication Orders Miralax 17 gram/dos e oral powder 2024 025 [facility][id number], [address] [place], [place], [id number], 04/13/2025 09:05:37 Dulcolax (bisacod yl) 5 mg tablet,d elayed release 2024 025 [facility][id number], [address] [place], [place], [id number], 04/13/2025 09:05:32 Patient TargetsNo targets recorded. Patient InstructionsNo instructions recorded. Reason for Referral None Reported. Results Created Date Observation Date Name Description Value Unit Range Abnormal Flag Note LastModifiedBy Organization Detail LastModifiedTime 04/03/2004/03/2025 CT, chest , w/o contr ast [facility] [address] [place] [place] [address] [phone] (Phone ) PAU Rodriguez REPORT Name: ROBERTO MOCTEZUMA : 1969 Accoun t #: [id number] Age: 55 Years Patien t Type: Outpat ient Sex: F Access ion#: [id number] Exam Descri ption: CT CHEST WO [...] ROBERTO MOCTEZUMA : 1969 Accoun t #: [id number] Age: 55 Years Patien t Type: Outpat ient Sex: F Access ion#: [id number] Exam Descri ption: CT CHEST WO [...] ELGARI ED YOUSOF Admitt ing [facility]: [facility] [email or web address] [facility] (Central Scheduling) [address] [place] [address] [place], [address], 04/06/2025 10:56:17 04/03/2004/03/2025 imagi ng inter preta tion No observ ation record ed. tpardini [facility] (Registration ) [address] [place] [address] [place], [address], 04/06/2025 07:57:34 04/13/20 25 04/13/2025 XR, chest , 2 [facility] [address] [place] [address] Phone: Fax: Name: ROBERTO MOCTEZUMA Exam Date: : [birth year] Age 55 years Gender : F Access ion: [id number] Physic lg: KAREEM JOHNSON Facili ty: [facility] Facili ty HSV: Outpat ient Exam: CHEST [...] you for referr ing ROBERTO MOCTEZUMA to [facility] Legall y authen ticate d by AMADA TINOCO MD 04-13 10:14: 40 CC'ed Logic: Orderi ng Provid er: ALEX HEBERT CC Provid er: ALEX HEBERT Attend ing Provid er: ALEX HEBERT Referr ing Provid er: ALEX HEBERT Admitt ing Provid er: ALEX HEBERT [facility] (Radiology) [address] [place], [address], 04/13/2025 13:55:00 05/01/20 25 04/30/2025 XR, chest , 2 view [facility] [address] [place] [address] [address] Phone: Fax: Name: ROBERTO MOCTEZUMA Exam Date: 04/30/20 : [birth year] Age 55 years Gender : F Access ion: [id number] Physic lg: KAREEM JOHNSON Facili ty: [facility] Facili ty HSV: Outpat ient Exam: CHEST PA ^ LAT EXAMIN ATION: TWO VIEW CHEST XR CLINIC AL INDICA TION: Female , 55 years old. HISTOR Y OF PNEUMO DEBORAH. TECHNI QUE: 2 View, PA and latera l, X-ray of the chest was perfor med. [id number] . COMPAR HAILEY: No prior exam. FINDIN [...] ing ROBERTO MOCTEZUMA to [facility]. Legall y authen ticate d by ROSIBEL DE LUNA MD 2024-0 04-30 15:23: 14 CC'ed Logic: Orderi ng Provid er: ALEX HEBERT CC Provid er: ALEX HEBERT Attend ing Provid er: ALEX HEBERT Referr ing Provid er: ALEX HEBERT Admitt ing Provid er: ALEX HEBERT [facility] (Radiology) [address], [place], [address], 05/04/2025 12:25:29 05/04/20 25 05/04/2025 imagi ng inter preta tion No observ ation record ed. tpaini [facility] [address], [place], [address], 05/04/2025 12:38:40 Result Notes None recorded. Problems Name Problem SNOMED Code Status Onset Date Resolution Date Notes Provider Name and Address Organization Details Recorded Time Blood-ting ed feces 1886777835935 02 Active 2024 Henna Griffin NP [address], [address], [place], [address] , [facility] - [place] - [place] & [place] 5 11:20:19 Abdominal pain 39055189 Active 2021 Not Available [facility] 4 08:10:34 Osteoarthr itis 429885614 Active 2021 Not Available [facility] 4 08:10:34 Tobacco user 138944855 Active 2021 Not Available [facility] 4 08:10:34 Chronic constipati on 669560084 Active 2021 Not Available [facility] 4 08:10:34 Irritable bowel syndrome 54638815 Active 2021 Not Available [facility] 4 08:10:34 Chronic obstructiv e pulmonary disease 86231395 Active 2021 Not Available [facility] 4 08:10:34 Chronic pain syndrome 547555174 Active 2021 Not Available [facility] 4 08:10:34 Asthma 930949215 Active 2021 Not Available [facility] 4 08:10:34 Neuropathy 685352292 Active 2021 Not Available [facility] 4 08:10:34 Mixed anxiety and depressive disorder 387183252 Active 2021 Not Available [facility] 4 08:10:34 Well controlled type 2 diabetes mellitus 197219579 Active Stephan Santacruz null, [place] - [facility] - [place] 4 08:44:51 Dyspnea 313129914 Active Stephan Santacruz null, [place] [facility] [place] 4 08:44:31 Insect sting 547718054 Active Stephan Santacruz null, [place] [facility] [place] [facility] & [place] 4 08:45:49 Lower abdominal pain 89360907 Active Stephan Ayalales null, [place] [facility] [place] [facility] & [place] 4 08:45:40 Exacerbati on of moderate persistent asthma 912514043 Active Stephan Ayalales null, [place] [facility] [place] [facility] & [place] 4 08:44:48 Burping 803860254 Active Henna Griffin NP [address], [address], [place], [address] , [place] [facility] [place] 5 11:20:12 Tobacco dependence caused by cigarettes 2054130001731 9107 Active Stephan Santacruz null, [place] [facility] - [facility] & [place] 4 08:44:55 Finding of tobacco use and exposure 237382397 Active Stephan Santacruz null, [place] [facility] - [facility] & [place] 4 08:46:08 Clostridio ides difficile infection 475595173 Active Stephan Ayalales null, [place] [facility] [place] [facility] & [place] 4 08:43:49 Swollen abdomen 69194078 Active Stephan Santacruz null, [place] [facility] - [facility] & [place] 4 08:44:57 Irritable bowel syndrome characteri zed by constipati on 275151641 Active Stephan Santacruz null, [place] [facility] [place] 4 08:45:43 Esophageal dysphagia 03005848 Active Stephan Santacruz null, [place] [facility] & [place] 4 08:44:40 Fall Active Stephan Santacruz null, [place] [facility] & [place] 4 08:46:20 Finding of gastrointe stinal tract gas 208592039 Active Stephan Santacruz null, [place] [facility] & [place] 4 08:46:12 Chronic pain 92521880 Active Stephan Santacruz null, [place] [facility] [place] [facility] & [place] 4 08:43:44 Gastritis 8485127 Active Stephan Santacruz [place], [place] [facility] [place] [facility] & [place] 4 08:46:05 Alteration in bowel eliminatio n 042798134 Active Stephan Santacruz null, [place] [facility] [place] [facility] & [place] 4 08:43:22 Generalize d abdominal pain 986759352 Active Stephan Santacruz null, [place] [facility] & [place] 4 08:46:26 Acute back pain with sciatica 140615420 Active Stephan Santacruz null, [place] [facility] & [place] 4 08:43:13 Idiopathic peripheral autonomic neuropathy 58008243 Active Stephan Santacruz null, [place] [facility] [place] [facility] & [place] 4 08:46:40 Pneumonia 194632060 Active Stephan Santacruz [place], [place] [facility] [place] [facility] & [place] 4 08:45:02 Pain of multiple joints 03182089 Active Stephan Santacruz [place], [place] [facility] [place] [facility] & [place] 4 08:45:18 Abdominal bloating 596738717 Active Stephan Santacruz [place], [place] [facility] [place] [facility] & [place] 4 08:43:10 Chest pain 86248814 Active Stephan Santacruz [place], [place] [facility] [place] [facility] & [place] 4 08:43:37 Chronic idiopathic constipati on 92468604 Active Stephan Santacruz null, [place] - [facility] - [facility] & [place] 4 08:43:41 Moderate persistent asthma 870625798 Active Stephan Santacruz null, [place] [facility] & [place] 4 08:45:21 Exogenous hyperlipid emia 066297922 Active Stephan Santacruz null, [place] [facility] [place] 4 08:46:23 Allergic rhinitis 08919388 Active Stephan Santacruz null, [place] [facility] & [place] 4 08:43:17 History of drug abuse 462200687 Active Stephan Santacruz [place], [place] [facility] & [place] 4 08:46:29 Gastro-eso phageal reflux disease with esophagiti s 202380352 Active Stephan Santacruz null, [place] - [facility] - [place] & [place] 4 08:46:01 Injury of nose 10498033 Active Stephan Santacruz null, [place] - [facility] - y & [place] 4 08:45:53 Disturbanc e in sleep behavior 67974603 Active Stephan Santacruz null, [place] - [facility] - [place] & [place] 4 08:44:24 Cocaine dependence in remission 568186092 Active Stephan Santacruz null, [place] - [facility] - [place] & [place] 4 08:43:53 Osteoarthr itis of multiple joints 786842581 Active Stephan Santacruz null, [place] - [facility] - y & [place] 4 08:45:04 Fatigue 60035777 Active Stephan Santacruz null, [place] - [facility] - [place] & [place] 4 08:46:16 Daytime somnolence 092783285060 Active Stephan Santacruz null, [place] - [facility] - y & [place] 4 08:44:07 Nausea 156216358 Active Henna Griffin NP [address], [address], [place], [address] , [place] - [facility] - & [place] 5 11:20:00 Gastroesop hageal reflux disease 165597572 Active Stephan Santacruz null, [place] - [facility] - [place] & [place] 4 08:45:59 CT of chest abnormal 8035770228241 9102 Active Stephan Santacruz null, [place] - [facility] - [place] & [place] 4 08:44:03 Hyperlipid emia 42976830 Active Stephan Santacruz null, [place] - [facility] - [place] & [place] 4 08:46:34 Type 2 diabetes mellitus without complicati on 911495979 Active Not Available [facility] 4 08:10:34 Anxiety 08162935 Active Stephan Santacruz null, [place] - [facility] - [place] & [place] 4 08:43:26 Obstructiv e sleep apnea syndrome 78827697 Active Stephan Santacruz null, [place] - [facility] - [place] & [place] 4 08:45:09 Nodule of lung 094869895 Active Stephan Santacruz null, [place] [facility] - & [place] 4 08:45:12 Diarrhea 00268710 Active Stephan Santacruz [place] [facility] - & [place] 4 08:44:14 Binge drinker 602755130 Active Stephan Santacruz null, [place] [facility] - & [place] 4 08:43:30 Epigastric pain 43855188 Active Stephan Santacruz null, [place] [facility] [place] & [place] 4 08:44:36 Mild intermitte nt asthma 554578211 Active Stephan Santacruz null, [place] [facility] - & [place] 4 08:45:29 Lumbar spondylosi s 113892811 Active Stephan Santacruz null, [place] [facility] - & [place] 4 08:45:35 Constipati on 88967184 Active Stephan Santacruz null, [place] [facility] - & [place] 4 08:43:57 Dysphagia 06281990 Active 2022 Stephan Santacruz null, [place] [facility] - & [place] 4 08:44:28 Diarrhea of presumed infectious origin 85762066 Active 2022 Stephan Santacruz null[place] [facility] - & [place] 4 08:44:18 Infection by Strongyloi jeni 0174577 Active 2022 Stephan Santacruz null, [place] [facility] - & [place] 4 08:46:43 Gastroesop hageal reflux disease without esophagiti s 490225584 Active 2022 Not Available [facility] 4 08:10:34 Obesity 630004476 Active 2023 Tutu Johnson MD [address] [place] [address], [address] , [place] - [facility] - & [place] 4 10:22:51 Notes:Some problems listed i n Document: #[id number] could not be added to this patient's chart. Please review this document and add these problems to the patient's chart manually as needed. Problem Notes None recorded. Procedures Surgical History Date Name Laterality Status Provider Name and Address Organization Details Recorded Time 2024 6 Minute Walk Test completed Trini Phillips [place] - [facility] - [place] [facility] [place] 5 12:06:58 2023 Medicare Annual Wellness Visit Health Risk Assessment completed Saba Levy [place] - [facility] - [place] & [place] 4 09:13:41 2023 Nasal Endoscopy completed Elton RODRIGEZ - [facility] - [place] & [place] 4 14:11:07 2022 Fiberoptic Laryngoscopy completed Elton Parra [place] - [facility] & [place] 3 15:34:17 2017 colonoscopy completed Henna Griffin NP [address], [address], [place], [address], [place] - [facility] [place] 5 13:08:30 2017 esophagogastroduodenoscopy completed Alicia Griffin NP [address], [address], [place], [address], [place] [facility] [place] 5 13:08:39 2016 Unlisted px dentalvlr strux completed Yvonne ie Cam [place] - [facility] & [place] 2 12:01:52 2015 esophagogastroduodenoscopy completed Ariella e Cam [place] - [facility] & [place] 2 12:01:40 2007 Partial hysterectomy completed Saba RODRIGEZ - [facility] & [place] 2 11:59:20 Sinus Surgery completed Irma RODRIGEZ - [facility] & [place] 4 13:42:39 parathyroidectomy completed Sabachin Levy [place] - [facility] & [place] 2 12:00:51 Imaging Results None recorded. Procedure Notes None recorded. Medical Equipment None Reported. Allergies Allergen ID Allergen Name Allergen Category Reaction Reaction Severity Criticality Documentation Date Start Date Code Code System Note Provider Name and Address Organization Details Recorded Time 45411 Substance with sulfonami de structure and antibacte rial mechanism of action (substanc e) medicatio n abdominal pain nausea vomiting mild moderate moderate Not available 08/24/2022 32931 8003 SNOMED Not Available [facility] 2 14:26:01 46719 codeine medicatio n nausea mild low 08/24/2022 2670 RxNorm Bria Colon null, [place] - [facility] - [place] & [place] 5 12:54:11 Medications Name Sig Start Date [...] Not Available No t Available amoxicillin 875 mg-kurtis m clavulanate 125 mg tablet Take 1 [...] Updated DateTime 5 154.94 cm 31.8 kg/m2 44556.2 4 g 97.1 [degF] 97 % 97 % 76 /min [address] [place] - [facility] & [place] 11:02:30 Social History Question Answer Notes LastModified by Organizat ion Details LastModified Time Tobacco Smoking Status Former Smoker Saba Levy jodi, [place] - [facility] & [place] 12/29/2024 14:30:53 Do You Have An Advance Directive? No [email or web address] Information n ot available 05/05/2024 Do You Wear A Helmet When Biking? Yes [email or web address] Information not available 05/05/2024 Are You Blind Or Do You Have Difficulty Seeing? No [email or web address] Information n ot available 05/05/2024 What Is Your Level Of Caffeine Consumption? None [email or web address] Information not available 05/05/2024 In The 14 Days Before Symptom Onset, Have You Had Close Contact With A Laboratory-confirm ed COVID-19 While That Case Was Ill? No [email or web address] Information n ot available 05/05/2024 In The 14 Days Before Symptom Onset, Have You Had Close Contact With A Person Who Is Under Investigation For COVID-19 While That Person Was Ill? No [email or web address] Information not available 05/05/2024 Have You Been To An Area Known To Be High Risk For COVID-19? No [email or web address] Information not available 05/05/2024 Are You Deaf Or Do You Have Serious Difficulty Hearing? No [email or web address] Information not available 05/05/2024 What Type Of Diet Are You Following? REGULAR [email or web address] Information n ot available 05/05/2024 Have You Processed Blood Or Body Fluids From An Ebola Virus Disease Patient Without Appropriate PPE? No Information not available 05/05/2024 Do You Reside In Or Have You Traveled To An Area Where Ebola Virus Transmission Is Active? No [email or web address] Information not available 05/05/2024 Have There Been Any Changes To Your Family Or Social Situation? No [email or web address] Information no t available 05/05/2024 What Is The Fluoride Status Of Your Home? Unknown Information not available 05/05/2024 When Did You Quit Smoking? 1-5yearssince lastcigarette Information not available 12/29/2024 Are There Any Guns Present In Your Home? No [email or web address] Information not available 05/05/2024 Have You Recently Or Are You Planning To Travel To An Area With Zika Virus? No [email or web address] Information not available 05/05/2024 Do You Use Insect Repellent Routinely? Yes [email or web address] Information not available 05/05/2024 In General, Would [...] Bread, 1 Cup Of Whole-grain Or High-fiber Sbwgd-mo-sik Cereal, 1 2 Cup Of Cooked Cereal Such As Oatmeal, Or 1 2 Cup Of Cooked Brown Rice Or Whole Wheat Pasta.) 1-2 Servings Per Day Information not available 05/27/2024 In The Past 7 Days, How Many Servings Of Fried Or High-fat Foods Did You Typically Eat Each Day? (Examples Include Fried Chicken, Fried Fish, [place], [place], Potato Chips, [place] Chips, Doughnuts, Creamy Salad Dressings, And Foods [...] Past 7 Days, How Often Have You Banco Sleepy During The Daytime? Rarely Information not [...] Do You Feel Safe At Home? Yes [email or web address] Information not available 05/05/2024 Do You Have A Medical Power Of Machine Printer? No [email or web address] Information not available 05/05/2024 What Was The Date Of Your Most Recent Tobacco Screening? 05/20/2024 Information not available 05/20/2024 What Is Your Current Pack Years? 20-29packyear s Information not available 08/24/2022 Do You Have Any Pets? No [email or web address] Information not available 05/05/2024 What Is Your Relationship Status? Domestic Partner Information not available 05/27/2024 Do You Use Your Seat Belt Or Car Seat Routinely? Yes [email or web address] Information not available 05/05/2024 Are You Sexually Active? Yes Information not available 05/27/2024 Do You Have Smoke And Carbon Monoxide Detectors In Your Home? Yes [email or web address] Information not available 05/05/2024 Are You Passively Exposed To Smoke? No [email or web address] Information no t available 05/05/2024 How Much Tobacco Do You Smoke? 1 PPD Information not available 08/24/2022 Do You Use Sunscreen Routinely? Yes [email or web address] Information not available 05/05/2024 Has Tobacco Cessation Counseling Been Provided? Yes Information not available 08/24/2022 On What Date Was Tobacco Cessation Counseling Provided? 05/20/2024 [email or web address] Information not available 05/20/2024 Do You Have Difficulty Walking Or Climbing Stairs? No [email or web address] Information not available 05/05/2024 Are You Currently In School? No [email or web address] Information not available 05/05/2024 Sex: Unknown Functional [...] available 08/24/2022 Are you currently employed? No [email or web address] Information not available 05/05/2024 Do you have transportation difficulties? No Information not available 05/05/2024 Are you able to walk? YESWOREST [email or web address] Information not available 05/05/2024 Do you have difficulty doing errands alone? No [email or web address] Information not available 05/05/2024 Are you able to care for yourself? Yes [email or web address] Information not available 05/05/2024 Do you have difficulty dressing or bathing? No Information not available 05/05/2024 What is your exercise level? None [email or web address] Information not available 05/05/2024 Mental Status Question Answer Note LastModified by Organizat ion Details LastModified Time Do you feel stressed (tense, restless, nervous, or anxious, or unable to sleep at night)? [id number] [email or web address] Information not available 05/05/2024 Do you have difficulty concentrating, remembering or making decisions? No [email or web address] Information no t available 05/05/2024 Family History [...] N Immune System Disorder N Heart Attack (NE) N Diabetes Y Bleeding Disorder N Tuberculosis [...] PF, 0.5 mL 1 completed Not Available [facility] 01/02/2024 08:10:35 TST-PPD intradermal 2 completed Not Available [facility] 01/02/2024 08:10:35 COVID-19, mRNA, LNP-S, PF, 100 mcg/0.5mL dose or 50 mcg/0.25mL dose 2 completed Ronit Lugo null, [place] [facility] [place] 02/24/2024 12:29:29 COVID-19 vaccine, vector-nr, rS-Ad26, PF, 0.5 mL 1 completed Ronit [place] null, [place] [facility] [place] & [place] 02/24/2024 12:29:29 COVID-19, mRNA, LNP-S, bivalent, PF, 50 mcg/0.5 mL or 25mcg/0.25 mL dose 3 completed Ronit Brittney null, [place] [facility] - [place] & [place] 02/24/2024 12:29:29 COVID-19, mRNA, LNP-S, PF, 50 mcg/0.5 mL 3 completed Ronit Lugo [facility], [place] - [facility] & [place] 02/24/2024 12:29:29 Past Encounters Encounter ID Performer Location Encounter Start Date Encounter Closed Date Diagnosis/Indication Diagnosis SNOMED-CT Code Diagnosis ICD10 Code Diagnosis Note [id number] Henna Griffin NP [facility] [address] [place] [address] 04/01/2025 10:39:31 04/01/2025 11:19:03 Gastro-esophageal reflux disease with esophagitis 181919917 K21.00 Continues pantoprazo le 40 mg daily for treatment. Recently experienci ng increased dyspepsia and belching. Recommend continued use of PPI as prescribed as well as reflux precaution s. Plan for EGD to further evaluate. Chronic id iopathic constipation 08192058 K59.04 Currently controlled with use of MiraLax and stool softeners. Nausea 752420023 R11.0 daily episodes of nausea and dyspepsia for the past several weeks. She is currently prescribed NSAIDs for arthritis. Recommend EGD to evaluate for erosive gastritis, PUD, other. Burping 928811751 R14.2 Increased belching and dyspepsia over the past several weeks. Recommend continued use of PPI as prescribed . Plan for EGD as above to further evaluate. Blood-tinged feces 25272 74766 56063 K92.1 Episodes of hematochez ia that occurred several weeks ago. Currently denies symptoms. Recommend colonoscop y to further evaluate to rule out underlying colon polyps, lesions, internal hemorrhoid s. Last colonoscop y 02/2018. Family his tory of cancer of colon 262086379 Z80.0 Patient's father with history colon cancer. Plan for colonoscop y as above. Health Concerns Section Related Observation LastModified by Organization Detai ls LastModified Time None Recorded Concern Status LastModified by Organization Details LastModified Time None Recorded Payers Encounter Date Sequence Insurance Name Policy Number Policy Reyes Covered Member ID Reyes Member ID Guarantor Name 04/01/2025 2 MEDICAID-[facility] - FFS/TRADITIO JEWEL Rolon [id number] Roberto Moctezuma 04/01/2025 1 [employer] (MEDICARE REPLACEMENT/ ADVANTAGE - PPO) Roberto Moctezuma [id number] Roberto Moctezuma Notes Date Note Type Note [...] history of colon cancer. Henna Griffin NP [address] [place] [address], [address], [place], [address], [facility] [place] 04/01/2025 13:09:48 OBGyn Episode No OBEpisode recorded.
[2025-05-17 08:49] LABS: Microscopic, Urine URINE MICROSCOPIC (MICROSCOPIC)
[2025-05-17] MEDS: ACETAMINOPHEN 500MG TAB 500 MG PO (08:50)
[2025-05-17 08:57] LABS: Appearance,Urine CLEAR (Clear); Bilirubin,Urine Negative (Negative); Blood, Urine Negative (Negative); Color,Urine YELLOW (Yellow); Glucose,Urine (UA) Negative (Negative); Ketones,Urine Negative (Negative); Leukocyte Esterase,Urine Negative (Negative); Nitrate,Urine Negative (Negative); PH,Urine 7.5 (5.0-8.5); Protein,Urine Negative (Negative); Specific Gravity, Urine <= 1.005 (1.005-1.030); Urobilinogen,Urine 0.2 EU/dl (0.2)
[2025-05-17 09:00] VITALS: BP 165/107; PULSE 81; O2SAT 97
[2025-05-17 09:08] LABS: Basophils # 0.1 K/mm3 (0-0.2); Basophils % 0.7 % (0.1-2.0); Eosinophils # 0.4 Kmm3 (0.0-0.4); Eosinophils % 2.6 % (0.1-12.0); Hemoglobin 13.7 g/dL (12.2-16.2); Immature Granulocytes # 0.18 10^3uL; Immature Granulocytes % 1.3 %; Lymphocytes # 2.9 K/mm3 (0.7-4.5); Lymphocytes % 21.8 % (10-50); Mean Corpuscular HGB Conc 33.4 g/dL (31.8-35.4); Mean Corpuscular Hemoglobin 28.5 pg (27.0-31.2); Mean Corpuscular Volume 85.2 fl (81-99); Mean Platelet Volume 11.2 fl (7.4-10.4); Monocytes # 1.6 K/mm3 (0.1-1.0); Monocytes % 11.6 % (1.7-9.3); Neutrophils # 8.4 K/mm3 (1.8-7.8); Nucleated Red Blood Cells # 0 10^3/uL; Nucleated Red Blood Cells % 0 %; Platelet Count 233 K/mm3 (142-424); Red Blood Count 4.81 M/mm3 (4.20-5.40); Red Cell Distribution Width 13.4 % (11.5-17.5); Red Cell Distribution Width-SD 41.3 fL; White Blood Count 13.5 K/mm3 (4.8-10.8)
[2025-05-17 09:19] LABS: MANUAL DIFFERENTIAL MANUAL DIFFERENTIAL (MANUAL DIFF)
[2025-05-17 09:29] LABS: Bacteria,Urine Trace /lpf; WBC,Urine Occasional #/hpf (0-3)
[2025-05-17 09:30] VITALS: BP 138/98; PULSE 75; O2SAT 97
[2025-05-17 09:40] LABS: Eosinophils % 2 % (0-3); Lymphocytes % 27 % (10-50); Monocytes % 5 % (2-9); Neutrophils % 66 % (42-76); Platelet Estimate Normal; RBC Morphology Normal; Total Cells Counted 100
[2025-05-17 09:46] LABS: Albumin Level 4.4 g/dl (3.5-5.0); Chloride 96 mmol/L (98-107); Sodium 137 mmol/L (136-145)
[2025-05-17 09:47] LABS: Potassium 3.8 mmoL/L (3.5-5.1)
[2025-05-17 09:49] LABS: Alanine Aminotransferase 36 U/L (12-78); Albumin/Globulin Ratio 1.4 (1.1-1.8); Alkaline Phosphatase 120 U/L (38-126); Anion Gap 13.8 mEq/L (5-15); Aspartate Amino Transferase 53 U/L (14-36); Bilirubin,Total 0.3 mg/dl (0.2-1.3); Blood Urea Nitrogen 13 mg/dl (7-17); Carbon Dioxide 31 mmol/L (22.0-30.0); Creatinine Clearance Estimated 105 mL/min (50-200); Estimated Glomerular Filt Rate 87 ml/min (>60); GFR (African American) 105 ML/MIN (>60); Globulin 3.1 g/dL (1.3-3.2); Total Protein,Serum 7.5 g/dl (6.3-8.2)
[2025-05-17 09:50] LABS: Calcium 9.4 mg/dl (8.4-10.2); Glucose 103 mg/dl (74-100)
--- NOTE | 2025-05-17 09:54 | XR_ITS ---
PROCEDURE INFORMATION: Exam: XR Chest Exam date and time: 05/17/2025 9:55 AM Age: 55 years old Clinical indication: Shortness of breath; Additional info: SOA, cough TECHNIQUE: Imaging protocol: Radiologic exam of the chest. Views: 2 views. Total images: 2 COMPARISON: CR XR CHEST PORTABLE 09/30/2024 12:16 PM FINDINGS: Lungs: No consolidation. Pleural spaces: No pleural effusion. No pneumothorax. Heart/Mediastinum: No cardiomegaly. Bones/joints: Unremarkable. IMPRESSION: No acute cardiopulmonary abnormalities.
[2025-05-17 10:00] VITALS: BP 157/118; PULSE 86; O2SAT 97
[2025-05-17 10:31] VITALS: BP 144/78; PULSE 73; O2SAT 98
[2025-05-17 11:19] VITALS: BP 136/104; PULSE 88; RESP 22; TEMP 36.9; O2SAT 96
== END 2025-05-17 11:20 | disposition home or self-care (01) ==
PROVIDERS: Emergency Provider Student in an Organized Health Care Education/Training Program; PCP Emergency Medicine
DX: R39.15 Urgency of urination (principal); J44.9 Chronic obstructive pulmonary disease, unspecified; I10 Essential (primary) hypertension; E78.5 Hyperlipidemia, unspecified; Z87.891 Personal history of nicotine dependence
CPT/HCPCS: 71046; 80053; 81001; 85007; 85025; 85027; 99284

== ENCOUNTER 2025-05-18 08:48 | Outpatient (RCR) | payer MEDICARE, MEDICAID, SELFPAY | END 2025-05-18 23:59 | disposition home or self-care (01) | LOC: PT.CARL 08:48 | PROVIDERS: PCP Emergency Medicine; Visit Provider Orthopaedic Surgery | DX: M70.62 Trochanteric bursitis, left hip (principal); Y93.9 Activity, unspecified ==

== ENCOUNTER 2025-06-05 14:25 | Day surgery (SDC) | payer MEDICARE, MEDICAID, SELFPAY ==
--- NOTE | 2025-06-05 14:28 | EXP.PM.HP ---
History of Present Illness *Admission Date: 06/05/25 *Reason for visit:: Intrathecal refill; DDD *History of present illness: Same [facility] Disclaimer: The information contained in this section may have been updated after the patient was seen, as this information can be updated by other users. 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 current occupational exposures/hazards: No caffeine: Yes Have you lived/traveled outside [place] in past 30 days?: No Contact w/someone who lives/traveled outside US past 30 days?: No Exposure to someone with infectious disease in past 14 days?: No Do you have a fever (greater than 100.4 F or 38 C)?: No Have you tested positive for COVID-19?: No Exposed to someone with COVID-19 in past 14 days?: No Do you have a sore throat?: No Do you have a cough?: No Do you have any weakness?: No Do you have any diarrhea?: No Are you experiencing any unusual bleeding?: No Do you have any muscle aches/pain?: No Do you have any abdominal pain?: No Are you experiencing loss of taste or smell?: No Other Medical History Have you received the Flu Vaccine for this season: No Have you received the Pneumonia Vaccine: No Review of Systems Review of Systems Review of systems:: pertinent systems reviewed and negative unless documented below Review of systems (narrative): Review of Systems: General: No recent weight changes, no fever, no sleep disturbances Respiratory: No cough, no shortness of air, no recurring pulmonary infections Cardiovascular/peripheral vascular: No chest pain, no palpitations, no edema, no shortness of breath Gastrointestinal: No new onset incontinence, normal bowel movements reported Genitourinary: No new onset incontinence Musculoskeletal: Chronic back pain Psychiatric: [Normal mood/affect] Neurological: [Denies weakness in extremities], [denies balance issues] Meds Home Medications and Allergies Home Medications ?Medication ?Instructions ?Recorded ?Confirmed ?Type buspirone 10 mg tablet 10 mg PO BID mood 05/12/21 05/25/25 History estradiol 0.5 mg tablet 0.5 mg PO DAILY HRT 05/12/21 05/25/25 History montelukast 10 mg tablet 10 mg PO PM allergies 05/12/21 05/25/25 History paroxetine HCl 40 mg tablet 40 mg PO DAILY mood 05/12/21 05/25/25 History pantoprazole 40 mg tablet,delayed 40 mg PO DAILY Reflux/Acid reflux 07/07/21 05/25/25 History release lidocaine-prilocaine 2.5 %-2.5 % 1 applic topical .COMPLEX Pain 09/08/21 05/25/25 History topical cream hydroxyzine HCl 50 mg tablet 50 mg PO TID Pain 11/29/21 05/25/25 History buprenorphine 2 mg-naloxone 0.5 mg 1 film sublingual DAILY Pain 01/23/22 05/25/25 History sublingual film aspirin 81 mg tablet,delayed 81 mg PO DAILY Blood thinner 03/23/22 05/25/25 History release metformin 500 mg tablet 500 mg PO DAILY Diabetes 08/03/22 05/25/25 History ondansetron HCl 8 mg tablet 8 mg PO DAILY PRN Stomach Upset 08/03/22 05/25/25 History famotidine 40 mg tablet 40 mg PO DAILY STOMACH 08/21/22 05/25/25 History pravastatin 40 mg tablet 40 mg PO DAILY Cholesterol 08/21/22 05/25/25 History cetirizine 10 mg tablet 10 mg PO DAILY ALLERGIES 11/13/22 05/25/25 History albuterol sulfate 90 mcg/actuation 1 puff inhalation DIRECTED PRN 12/05/22 05/25/25 History aerosol inhaler (ProAir HFA) BREATHING diltiazem HCl 30 mg tablet 30 mg PO ONCE HEART 12/05/22 05/25/25 History amantadine HCl 100 mg tablet 100 mg PO DIRECTED . 10/15/23 05/25/25 History fluticasone propionate 50 50 mcg intranasal DIRECTED 10/15/23 05/25/25 History mcg/actuation nasal Breathing Problems spray,suspension fluticasone fur. 200 mcg-umeclid 1 inh inhalation DAILY 01/07/24 05/25/25 History 62.5 mcg-vilant 25 mcg inhalat.powder (Trelegy Ellipta) urea 40 % topical cream 1 applic topical BID 3 months #60 01/07/24 05/25/25 Rx applic melatonin 5 mg capsule 5 mg PO HS 06/16/24 05/25/25 History semaglutide 2 mg/dose (8 mg/3 mL) 2 mg SQ WEEKLY 06/16/24 05/25/25 History subcutaneous pen injector (Ozempic) trazodone 100 mg tablet 200 mg PO HS 06/16/24 05/25/25 History prednisone 20 mg tablet 20 mg PO BID #10 tabs 11/28/24 05/25/25 Rx lidocaine 5 % topical patch 1 patch topical DAILY #30 ea 01/05/25 05/25/25 Rx pregabalin 150 mg capsule (Lyrica) 150 mg PO TID #90 caps 03/20/25 05/25/25 Rx baclofen 10 mg tablet 10 mg PO TID #90 tabs 04/10/25 05/25/25 Rx New Prescriptions to Start Prescriptions: Allergies Allergy/AdvReac Type Severity Reaction Status Date / Time Sulfa (Sulfonamide Allergy Verified 05/04/25 11:31 Antibiotics) Exam Constitutional Constitutional: no acute distress *Routine HEENT Exam Head: Present normocephalic and atraumatic Eye: Present PERRL ENT: Present mucous membranes moist *Routine Neck Exam Neck: Present supple *Routine Respiratory Exam Respiratory: Present CTA bilaterally *Routine Cardiovascular Exam Cardiovascular: Present RRR *Routine Abdominal Exam Abdominal: Present soft *Routine Rectal Exam Rectal:: deferred *Routine Genitalia Exam Genitalia:: deferred Routine Back/Spine/Pelvis Exam Back/Spine: Present pain with flexion *Routine Skin Exam Skin: Present intact and dry *Routine Neurological Exam Neurological: Present alert and oriented X3 Routine Psychiatric Exam Psychiatric: Present normal affect and normal thought process Assessment and Plan *Assessment and plan (1) Degenerative joint disease (DJD) of lumbar spine: Status: Chronic Qualifiers: Spinal osteoarthritis complication: with radiculopathy Qualified Code(s): M47.26 - Other spondylosis with radiculopathy, lumbar region Category: Medical Code(s): M47.816 - Spondylosis without myelopathy or radiculopathy, lumbar region Plan Patient has been instructed to contact the clinic with any concerns before the next appointment. Dr. Sethi has reviewed this note and agrees with this plan of care. This note was dictated using voice recognition software and make contain errors or omissions. All injections are used with Lidocaine, Bupivacaine and dexamethasone. Occasionally urine drug screen is needed to verify patient's compliance with our office pain contract. This is ordered based off specific treatments related to chronic pain with the potential to abuse certain medications.
--- NOTE | 2025-06-05 14:30 | P.PCN_ITS ---
Procedure Date: 06/05/25 Time: 15:01 Anesthesiologist:: Ines Christianson APRN Complications:: None Pre-procedure Diagnosis:: Chronic pain syndrome, degenerative disc disease of lumbar spine Post-procedure Diagnosis:: Same Indications for Procedure:: Patient is a pleasant 55-year-old female who presents today for intrathecal refill and reprogram. Today she rates her pain an 8 out of 10. She denies any new falls or injuries. Patient does state that she is A lot of issues with her anxiety here lately. Patient states that she did call and talk to her primary care however did not have a call back until a later date regarding this. She states then it was just the information receptionist calling to give her an appointment diet with a new psychiatrist. She states this is coming up soon. Patient is currently managed with bupivacaine 15 mg/mL with a daily dose of 7.8 mg/day. She is also managed with pregabalin 150 mg 3 times a day and baclofen 10 mg 3 times a day. She denies any side effects. Her Bruno has been reviewed and is appropriate. Physical Exam: General: Alert and oriented x3, no acute distress, pleasant and cooperative Lungs: Respirations even and unlabored, symmetrical chest expansion Eyes: PERRL Musculoskeletal: Flexion and extension of lumbar [spine] somewhat guarded se condary to pain, [antalgic gait noted] Neurological: Speech clear, no gross sensory deficit Procedure Details:: Informed consent was obtained and the risk and benefits of the procedure were explained to the patient. The patient had noninvasive monitoring placed including noninvasive blood pressure cuff and pulse oximeter. Patient's pump was interrogated. The area over the pump was cleansed with chlorhexidine as a cleansing solution. In sterile fashion the pump was accessed with a 22-gauge needle. Approximately 4.2 mls of the pump solution was removed and discarded appropriately. The pump was then refilled with 20 mL's of bupivacaine 15 mg/mL. The needle was withdrawn and a bandage was placed over the puncture site. The infusion rate was reprogrammed and continued at its current dosage. The patient tolerated well with no complication. Plan and Disposition:: Patient tolerated the procedure well with no complications and was discharged neurologically intact. I will make sure she does have refills on her pregabalin and baclofen. patient will return to clinic on or before their next intrathecal refill date. We will see the patient back in the clinic at the next intrathecal refill. Patient has been instructed to contact the clinic with any concerns before the next appointment. Dr. Sethi has reviewed this note and agrees with this plan of care. This note was dictated using voice recognition software and make contain errors or omissions. -- It Is medically necessary for this patient to continue to have their intrathecal pump refilled at regular intervals. This patient had an intrathecal pain pump implanted after meeting criteria of chronic intractable pain for greater than 3 months and failing conservative treatments. Patient has committed and been compliant to the treatment plan and all planned follow up care. Since implantation of the intrathecal pain pump, the patient has had decreased pain and been more functional. Oral medications have been reduced including intake of oral opioids. Patient continues to do well with intrathecal therapy with decrease in pain symptoms and increase in functional status. Stopping intrathecal medications can lead to life threatening withdrawal, seizures, cardiac arrest, severe pain, and possible . Pumps that are not refilled at regular intervals can be damages and cause and need for replacement. We continually titrate dose and concentration to optimize pain relief and function. We are limited in concentration for certain drugs to safely deliver medications through the pump and stay within the recommendations from the Polyanalges[employer] Consensus Committee Guidelines. Depending on dose and concentration these pumps may need to be refilled sooner than 3 months as we titrate. A UDS is needed to verify patient's compliance with our office pain contract. This is ordered based off specific treatments related to chronic pain with the potential to abuse certain medications.
[2025-06-05 14:41] VITALS: BP 137/86; PULSE 99; RESP 18; O2SAT 93; BMI 32.6
[2025-06-05 14:57] VITALS: BP 137/86; PULSE 99; RESP 18; O2SAT 93
[2025-06-05 15:19] VITALS: BP 123/79; PULSE 99; RESP 18; O2SAT 93
== END 2025-06-05 15:19 | disposition home or self-care (01) ==
PROVIDERS: PCP Emergency Medicine; Visit Provider Nurse Practitioner Family
DX: Z45.1 Encounter for adjustment and management of infusion pump (principal); M47.26 Other spondylosis with radiculopathy, lumbar region; G89.4 Chronic pain syndrome; E11.9 Type 2 diabetes mellitus without complications; J44.89 Other specified chronic obstructive pulmonary disease; I10 Essential (primary) hypertension; Z79.84 Long term (current) use of oral hypoglycemic drugs; Z79.52 Long term (current) use of systemic steroids; Z79.85 Long-term (current) use of injectable non-insulin antidiabetic drugs; Z79.899 Other long term (current) drug therapy; Z79.82 Long term (current) use of aspirin; Z79.890 Hormone replacement therapy; Z88.2 Allergy status to sulfonamides; Z87.891 Personal history of nicotine dependence
CPT/HCPCS: 62370

== ENCOUNTER 2025-06-22 09:54 | Outpatient (RCR) | payer MEDICARE, MEDICAID, SELFPAY ==
--- NOTE | 2025-06-22 12:29 | HMH.PTOPEV ---
PT Outpatient Evaluation Rehab PT Outpatient Evaluation Start: 06/22/25 10:01 Freq: Status: Active Protocol: Document 06/22/25 10:02 MEGANSEROUX (Rec: 06/22/25 12:29 [email or web address] [id number]) E-signed By Per Chandra, PT Outpatient Therapy Subjective History Subjective History Pt.'s mother was present in the same room as the pt. at the time of the Outpatient PT initial evaluation this date(06/22/25). Pt. is a 55 year old female who presents to [facility] in [place] for the outpatient initial evaluation this date(06/22/25) w/ c/o acute on chronic and constant LLE hip P!, TTP, and weakness of traumatic onset secondary to a fall last year. Pt. c/o initial onset of LLE hip symptoms secondary to a fall, however, states symptoms have progressively been getting worse over the last couple of months. Pt. reports the P! has started shooting down the LLE into the foot and digits. Pt. reports having to ambulate w/ a SPC secondary to fear of falling from the LLE giving out. Pt. reports she was unable to finish her previous Outpatient Physical Therapy initial evaluation last month(05/18/25) secondary to her anxiety, however, pt. vocalizes it is better secondary to medication. Pt. reports having a X-ray of the LLE hip, however, has not heard back on the results at this time. Pt. reports having no symptom relief w/ most recent injection in the LLE hip. Pt. reports a chronic history of lower back pain, states having a pain pump installed where I had some relief for the first couple of years. Pt. reports applying moist heat, prescribed ointment, and sleeping help to provide some symptom relief per pt. report. Pt. reports the P! is worse when she gets up and starts moving around for the day, states having some symptom relief when she sits back down. Current medication list includes Furosemide, Pantoprazole, Pravastatin, Metformin, Baclofen, Pregabalin, Buspirone , Carvedilol, Montelukast, Valium, Paroxetine, and Hydroxyzine. PMH includes S/P Sinus Surgery, S/P Partial Hysterectomy, S/P L-sine Pain-Pump, S/P Parathyroidectomy, COPD, supplemental O2, Pneumonia, Rhinovirus. New diagnosis of No cancer in past 12 months? Chief Complaint Pain,Spasms,Stiff,Gives out/Unstable,Paresthesia, Weakness Symptom Type Ache,Throb,Sharp,Dull,Stabbing,Numbness,Tingling, Shooting Symptoms Relieved By Rest/Positioning,Heat,Prescription Meds Symptoms Aggravated Standing,Physical Activity,Twisting,Walking By Prior Functional None Limitations Current Functional Housework,Dressing,Standing,Squatting,Recreation Limitations Activity,Walking,Bending/Stooping Symptom Description Constant but Variable,Activity Dependent Level of pain today 7 (0-10) Pain scale - at its 6 best (0-10) Pain scale - at its 10 worst (0-10) Hip/Knee Eval Gait Observation General Gait Pattern Antalgic Gait,Decrease Weight Bear (L),Decrease Stride Observation Lngth (R) Assistive Device Assistive Devices Straight Cane Palpation Tenderness left Hip Palpation Tenderness,Spasm,Muscle Guarding Findings Hip Palpation grade 4 +TTP grtr. trchntr., glute med., piriformis Overall Comment MMT Hip Flexion Strength 3+ Fair+ Grade Hip Abduction 3+ Fair+ Strength Grade Hip Adduction 4- Good- Strength Grade Hip Extension 4- Good- Strength Grade Gluteus [place] 4- Good- Strength Grade Hip External 3+ Fair+ Rotation Strength Grade Hip Internal 3+ Fair+ Rotation Strength Grade Knee Extension 4- Good- Strength Grade Knee Flexion 4- Good- Strength Grade Knee Extensors Severe Hypertonicity Muscle Tone Description Knee Flexors Muscle Severe Hypertonicity Tone Description Hip Extensors Muscle Severe Hypertonicity Tone Description Hip Flexors Muscle Severe Hypertonicity Tone Description ROM Hip Flexion w/Knee 43 Flexed Active Range of Motion (degrees) Hip Flexion w/Knee 51 Flexed Passive Range of Motion (degrees) Hip Abduction Active 17 Range of Motion ( degrees) Hip Abduction 21 Passive Range of Motion (degrees) Hip Extension Active 11 Range of Motion ( degrees) Hip Extension 15 Passive Range of Motion (degrees) Hip External 16 Rotation Active Range of Motion ( degrees) Hip External 19 Rotation Passive Range of Motion ( degrees) Hip Internal 7 Rotation Active Range of Motion ( degrees) Hip Internal 10 Rotation Passive Range of Motion ( degrees) Hip ROM Limitations Soft Tissue Tightness,Pain,Muscle Weakness,Muscle Tone, Tightness on Left,Pain on Left DTR bilateral Rt Patellar 1+ Lt Patellar 1+ Rt Ankle 0 Lt Ankle 0 Sensation left LE Dermatome Level L3,L4,L5,S1 Comment pt. vocalized increased sensitivity to LLE compared to RLE Special Tests Hip David Test Positive Left Sciatic Nerve Positive Left Tension Test Hip Scouring ( Positive Left Quadrant) Test Mark Test Positive Oswestry Index Section 1 Pain Intensity The pain is moderate and does not vary much Section 2 Personal Care ( increase the pain, but I manage not to change my way of Washing,[place]) doing it Section 3 Lifting I can only lift very light weights at most Section 4 Walking I cannot walk more than 1/4 mile without increasing pain Section 5 Sitting I can sit in any chair for as long as I like Section 6 Standing I cannot stand more than 10 minutes without increasing pain Section 7 Sleeping I get pain in bed, but it does not prevent me from sleeping well Section 8 Social Life Pain has restricted my social life to my home Section 9 Traveling Pain restricts me to short necessary journeys under 30 minutes Section 10 Changing Degreee of My pain is neither getting better or worse Pain Score and Risk Level Oswestry Sc 30 Oswestry Risk Level Severe Disability Lower Extremity Functional Index Activities Today, do you or would you have any difficulty at all with: a.Any of your usual Quite a bit of difficulty work, housework or school activities b. Your usual Quite a bit of difficulty hobbies, recreational or sporting activities c. Getting into or Quite a bit of difficulty out of the bath d. Walking between Quite a bit of difficulty rooms e. Putting on your Moderate difficulty shoes or socks f. Squatting Quite a bit of difficulty g. Lifting an object Quite a bit of difficulty , like a bag of groceries from the floor h. Performing light Moderate difficulty activities around your home i. Performing heavy Extreme difficulty or unable to perform activity activities around your home j. Getting into or Moderate difficulty out of a car k. Walking 2 blocks Extreme difficulty or unable to perform activity l. Walking a mile Extreme difficulty or unable to perform activity m. Going up or down Extreme difficulty or unable to perform activity 10 stairs (about 1 flight of stairs) n. Standing for 1 Quite a bit of difficulty hour o. Sitting for 1 A little bit of difficulty hour p. Running on even Extreme difficulty or unable to perform activity ground q. Running on uneven Extreme difficulty or unable to perform activity ground r. Making sharp Extreme difficulty or unable to perform activity turns while running fast s. Hopping Extreme difficulty or unable to perform activity t. Rolling over in Moderate difficulty bed LEFI Score Lower Extremity 18 Functional Index Score Outpatient Therapy Assessment Impairments Problems/ Palpation Tenderness,Impaired Range of Motion,Impaired Impairmments Strength,Impaired Endurance,Impaired Gait Pattern, Impaired Walking,Impaired Standing,Impaired Lifting, Impaired Dressing,Impaired Shower/Bathing,Impaired Household Care,Impaired Stair Climbing,Impaired Squatting,Impaired Bending,Subjective C/O Pain,Impaired Self Care/Self Management Prognosis Rehab Potential Good Comment w/ HEP compliancy Clinical Impression Consistent with Yes Diagnosis Consistent with LLE hip grtr. trchntr. bursitis Additional details: S/S associated w/ L-sided lumbar radiculopathy Short Term Goals Number of Weeks 2 Decreased Palpation Yes: grade 2 +TTP Tenderness Decrease Subjective Yes: worse:5/10 C/O Pain Patient to be Ind w/ Yes HEP Care Home Goals Number of Weeks 4 Decreased Palpation Yes: grade 1 +TTP @ worse Tenderness Increase Range of Yes: LLE hip A/PROM WFL grossly Motion Increase Strength Yes: 4+ to 5/5 LLE hip MMT scores grossly Improve Gait Pattern Yes without Assistive Device Increase Ability to Yes Walk Increase Ability to Yes Stand Improve Ability to Yes: w/o assistance Dress Self Improve Ability to Yes: w/o assistance Shower/Bathe Self Improve Ability For Yes: 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 Household Care Improve Oswestry Yes Score Improve LEFI Score Yes Decrease Subjective Yes: worse:2-3/10 C/O Pain Patient to be Ind w/ Yes Advanced HEP Outpatient Therapy Plan of Care Treatment Plan May Include Therapeutic Exercise Yes Including Home Exercise Program Manual Therapy Yes Techniques Neuromuscular Re- Yes education Therapeutic Yes Activities to Return to Previous Functional/Work Level Gait Training Yes ADL/Self Care Yes Education Thermal Modalities Yes Electrical Yes: Pain-pump L-spine Stimulation Ultrasound/ Yes: Pain-pump L-spine Phonophoresis Iontophoresis Yes: Pain-pump L-spine Vasopneumatic Yes Compression Pump Massage Yes Eval/Re-Eval Yes Frequency Times per week 1 Duration Number of Weeks 4 Addendums This patient is a No candidate for social or vocational rehab ? Patient/Guardian Yes verbally acknowledges understanding of treatment program and consents to further treatment? Patient/Guardian Yes verbally acknowledges understanding of diagnosis, prognosis and goals for treatment? Eval Complexity PT Charges [id number] - Moderate Complexity Shoulder/Elbow Eval Shoulder Objective Measurements Elbow Objective Measurements PHYSICIAN CERTIFICATION: I certify the specified therapy services for Coretta [place] are required, authorized, and reviewed every 30 days.
== END 2025-06-22 23:59 | disposition home or self-care (01) ==
LOC: PT.CARL 09:54
PROVIDERS: PCP Emergency Medicine; Visit Provider Orthopaedic Surgery
DX: M70.62 Trochanteric bursitis, left hip (principal)
CPT/HCPCS: 97162

== ENCOUNTER 2025-06-26 13:45 | Day surgery (SDC) | payer MEDICARE, MEDICAID, SELFPAY ==
[2025-06-26 14:04] VITALS: BP 152/75; PULSE 78; RESP 18; O2SAT 92; BMI 32.6
--- NOTE | 2025-06-26 14:04 | EXP.PM.HP ---
History of Present Illness *Admission Date: 06/26/25 *Reason for visit:: Intrathecal refill; DDD *History of present illness: Same [facility] Disclaimer: The information contained in this section may have been updated after the patient was seen, as this information can be updated by other users. 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 current occupational exposures/hazards: No caffeine: Yes Have you lived/traveled outside US in past 30 days?: No Contact w/someone who lives/traveled outside US past 30 days?: No Exposure to someone with infectious disease in past 14 days?: No Do you have a fever (greater than 100.4 F or 38 C)?: No Have you tested positive for COVID-19?: No Exposed to someone with COVID-19 in past 14 days?: No Do you have a sore throat?: No Do you have a cough?: No Do you have any weakness?: No Do you have any diarrhea?: No Are you experiencing any unusual bleeding?: No Do you have any muscle aches/pain?: No Do you have any abdominal pain?: No Are you experiencing loss of taste or smell?: No Other Medical History Have you received the Flu Vaccine for this season: No Have you received the Pneumonia Vaccine: No Review of Systems Review of Systems Review of systems:: pertinent systems reviewed and negative unless documented below Review of systems (narrative): Review of Systems: General: No recent weight changes, no fever, no sleep disturbances Respiratory: No cough, no shortness of air, no recurring pulmonary infections Cardiovascular/peripheral vascular: No chest pain, no palpitations, no edema, no shortness of breath Gastrointestinal: No new onset incontinence, normal bowel movements reported Genitourinary: No new onset incontinence Musculoskeletal: Chronic back pain Psychiatric: [Normal mood/affect] Neurological: [Denies weakness in extremities], [denies balance issues] Meds Home Medications and Allergies Home Medications ?Medication ?Instructions ?Recorded ?Confirmed ?Type buspirone 10 mg tablet 10 mg PO BID mood 05/12/21 06/26/25 History estradiol 0.5 mg tablet 0.5 mg PO DAILY HRT 05/12/21 06/26/25 History montelukast 10 mg tablet 10 mg PO PM allergies 05/12/21 06/26/25 History paroxetine HCl 40 mg tablet 40 mg PO DAILY mood 05/12/21 06/26/25 History pantoprazole 40 mg tablet,delayed 40 mg PO DAILY Reflux/Acid reflux 07/07/21 06/26/25 History release lidocaine-prilocaine 2.5 %-2.5 % 1 applic topical .COMPLEX Pain 09/08/21 06/26/25 History topical cream hydroxyzine HCl 50 mg tablet 50 mg PO TID Pain 11/29/21 06/26/25 History buprenorphine 2 mg-naloxone 0.5 mg 1 film sublingual DAILY Pain 01/23/22 06/26/25 History sublingual film aspirin 81 mg tablet,delayed 81 mg PO DAILY Blood thinner 03/23/22 06/26/25 History release metformin 500 mg tablet 500 mg PO DAILY Diabetes 08/03/22 06/26/25 History ondansetron HCl 8 mg tablet 8 mg PO DAILY PRN Stomach Upset 08/03/22 06/26/25 History famotidine 40 mg tablet 40 mg PO DAILY STOMACH 08/21/22 06/26/25 History pravastatin 40 mg tablet 40 mg PO DAILY Cholesterol 08/21/22 06/26/25 History cetirizine 10 mg tablet 10 mg PO DAILY ALLERGIES 11/13/22 06/26/25 History albuterol sulfate 90 mcg/actuation 1 puff inhalation DIRECTED PRN 12/05/22 06/26/25 History aerosol inhaler (ProAir HFA) BREATHING diltiazem HCl 30 mg tablet 30 mg PO ONCE HEART 12/05/22 06/26/25 History amantadine HCl 100 mg tablet 100 mg PO DIRECTED . 10/15/23 06/26/25 History fluticasone propionate 50 50 mcg intranasal DIRECTED 10/15/23 06/26/25 History mcg/actuation nasal Breathing Problems spray,suspension fluticasone fur. 200 mcg-umeclid 1 inh inhalation DAILY 01/07/24 06/26/25 History 62.5 mcg-vilant 25 mcg inhalat.powder (Trelegy Ellipta) urea 40 % topical cream 1 applic topical BID 3 months #60 01/07/24 06/26/25 Rx applic melatonin 5 mg capsule 5 mg PO HS 06/16/24 06/26/25 History semaglutide 2 mg/dose (8 mg/3 mL) 2 mg SQ WEEKLY 06/16/24 06/26/25 History subcutaneous pen injector (Ozempic) trazodone 100 mg tablet 200 mg PO HS 06/16/24 06/26/25 History prednisone 20 mg tablet 20 mg PO BID #10 tabs 11/28/24 06/26/25 Rx lidocaine 5 % topical patch 1 patch topical DAILY #30 ea 01/05/25 06/26/25 Rx baclofen 10 mg tablet 10 mg PO TID #90 tabs 06/05/25 06/26/25 Rx pregabalin 150 mg capsule (Lyrica) 150 mg PO TID #90 caps 06/05/25 06/26/25 Rx New Prescriptions to Start Prescriptions: Allergies Allergy/AdvReac Type Severity Reaction Status Date / Time Sulfa (Sulfonamide Allergy Verified 05/04/25 11:31 Antibiotics) Exam Constitutional Constitutional: no acute distress *Routine HEENT Exam Head: Present normocephalic and atraumatic Eye: Present PERRL ENT: Present mucous membranes moist *Routine Neck Exam Neck: Present supple *Routine Respiratory Exam Respiratory: Present CTA bilaterally *Routine Cardiovascular Exam Cardiovascular: Present RRR *Routine Abdominal Exam Abdominal: Present soft *Routine Rectal Exam Rectal:: deferred *Routine Genitalia Exam Genitalia:: deferred Routine Back/Spine/Pelvis Exam Back/Spine: Present pain with flexion *Routine Skin Exam Skin: Present intact and warm *Routine Neurological Exam Neurological: Present alert and oriented X3 Routine Psychiatric Exam Psychiatric: Present normal affect and normal thought process Assessment and Plan *Assessment and plan (1) Osteoarthritis of spine with radiculopathy, lumbar region: Status: Acute Category: Medical Code(s): M47.26 - Other spondylosis with radiculopathy, lumbar region
--- NOTE | 2025-06-26 14:09 | EXP.PAIN.PRO ---
Procedure Date: 06/26/25 Time: 14:20 Anesthesiologist:: Ines Christianson APRN Complications:: None Pre-procedure Diagnosis:: Degenerative disc disease of lumbar spine, bilateral sacroiliitis, chronic pain syndrome Post-procedure Diagnosis:: Same Indications for Procedure:: Patient is a pleasant 55-year-old female who presents today for intrathecal refill and reprogram. Patient rates her pain today an 8 out of 10. She denies any new falls or injuries. She is having just overall increased pain. She is currently managed with bupivacaine 15 mg/mL with a daily dose of 8.576 mg/day. She is also prescribed pregabalin 150 mg 3 times a day and baclofen 10 mg 3 times a day. She denies any side effects. Her Bruno has been reviewed and is appropriate. Physical Exam: General: Alert and oriented x3, no acute distress, pleasant and cooperative Lungs: Respirations even and unlabored, symmetrical chest expansion Eyes: PERRL Musculoskeletal: Flexion and extension of lumbar [spine] somewhat guarded secondary to pain, [antalgic gait noted] Neurological: Speech clear, no gross sensory deficit Procedure Details:: Informed consent was obtained and the risk and benefits of the procedure were explained to the patient. The patient had noninvasive monitoring placed including noninvasive blood pressure cuff and pulse oximeter. Patient's pump was interrogated. The area over the pump was cleansed with chlorhexidine as a cleansing solution. In sterile fashion the pump was accessed with a 22-gauge needle. Approximately 8.5 mls of the pump solution was removed and discarded appropriately. The pump was then refilled with 20 mL's of bupivacaine 15 mg/mL. The needle was withdrawn and a bandage was placed over the puncture site. The infusion rate was reprogrammed and increased 10%. The patient tolerated well with no complication. Plan and Disposition:: Patient tolerated the procedure well with no complications and was discharged neurologically intact. Will increase her compounded cream and send in a new order. Patient will return to clinic on or before their next intrathecal refill date. We will see the patient back in the clinic at the next intrathecal refill. Patient has been instructed to contact the clinic with any concerns before the next appointment. Dr. Sethi has reviewed this note and agrees with this plan of care. This note was dictated using voice recognition software and make contain errors or omissions. -- It Is medically necessary for this patient to continue to have their intrathecal pump refilled at regular intervals. This patient had an intrathecal pain pump implanted after meeting criteria of chronic intractable pain for greater than 3 months and failing conservative treatments. Patient has committed and been compliant to the treatment plan and all planned follow up care. Since implantation of the intrathecal pain pump, the patient has had decreased pain and been more functional. Oral medications have been reduced including intake of oral opioids. Patient continues to do well with intrathecal therapy with decrease in pain symptoms and increase in functional status. Stopping intrathecal medications can lead to life threatening withdrawal, seizures, cardiac arrest, severe pain, and possible . Pumps that are not refilled at regular intervals can be damages and cause and need for replacement. We continually titrate dose and concentration to optimize pain relief and function. We are limited in concentration for certain drugs to safely deliver medications through the pump and stay within the recommendations from the Polyanalgesic Consensus Committee Guidelines. Depending on dose and concentration these pumps may need to be refilled sooner than 3 months as we titrate. A UDS is needed to verify patient's compliance with our office pain contract. This is ordered based off specific treatments related to chronic pain with the potential to abuse certain medications.
[2025-06-26 14:15] VITALS: BP 143/83; PULSE 76; RESP 18; O2SAT 94
[2025-06-26 14:30] VITALS: BP 125/75; PULSE 79; RESP 18; O2SAT 92
== END 2025-06-26 14:30 | disposition home or self-care (01) ==
PROVIDERS: PCP Emergency Medicine; Visit Provider Nurse Practitioner Family
DX: Z45.1 Encounter for adjustment and management of infusion pump (principal); M47.26 Other spondylosis with radiculopathy, lumbar region; G89.4 Chronic pain syndrome; I10 Essential (primary) hypertension; E78.5 Hyperlipidemia, unspecified; J44.89 Other specified chronic obstructive pulmonary disease; Z85.9 Personal history of malignant neoplasm, unspecified; Z87.891 Personal history of nicotine dependence; Z79.84 Long term (current) use of oral hypoglycemic drugs; Z79.51 Long term (current) use of inhaled steroids; Z79.85 Long-term (current) use of injectable non-insulin antidiabetic drugs; Z79.899 Other long term (current) drug therapy; Z79.52 Long term (current) use of systemic steroids; Z79.82 Long term (current) use of aspirin; Z88.2 Allergy status to sulfonamides
CPT/HCPCS: 62370

== ENCOUNTER 2025-07-17 13:05 | Day surgery (SDC) | payer MEDICARE, MEDICAID, SELFPAY ==
--- NOTE | 2025-07-17 13:22 | EXP.PM.HP ---
History of Present Illness *Admission Date: 07/17/25 *Reason for visit:: Intrathecal refill; DDD *History of present illness: Same [facility] Disclaimer: The information contained in this section may have been updated after the patient was seen, as this information can be updated by other users. 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 current occupational exposures/hazards: No caffeine: Yes Have you lived/traveled outside US in past 30 days?: No Contact w/someone who lives/traveled outside US past 30 days?: No Exposure to someone with infectious disease in past 14 days?: No Do you have a fever (greater than 100.4 F or 38 C)?: No Have you tested positive for COVID-19?: No Exposed to someone with COVID-19 in past 14 days?: No Do you have a sore throat?: No Do you have a cough?: No Do you have any weakness?: No Do you have any diarrhea?: No Are you experiencing any unusual bleeding?: No Do you have any muscle aches/pain?: No Do you have any abdominal pain?: No Are you experiencing loss of taste or smell?: No Other Medical History Have you received the Flu Vaccine for this season: No Have you received the Pneumonia Vaccine: No Meds Home Medications and Allergies Home Medications ?Medication ?Instructions ?Recorded ?Confirmed ?Type buspirone 10 mg tablet 10 mg PO BID mood 05/12/21 06/26/25 History estradiol 0.5 mg tablet 0.5 mg PO DAILY HRT 05/12/21 06/26/25 History montelukast 10 mg tablet 10 mg PO PM allergies 05/12/21 06/26/25 History paroxetine HCl 40 mg tablet 40 mg PO DAILY mood 05/12/21 06/26/25 History pantoprazole 40 mg tablet,delayed 40 mg PO DAILY Reflux/Acid reflux 07/07/21 06/26/25 History release lidocaine-prilocaine 2.5 %-2.5 % 1 applic topical .COMPLEX Pain 09/08/21 06/26/25 History topical cream hydroxyzine HCl 50 mg tablet 50 mg PO TID Pain 11/29/21 06/26/25 History buprenorphine 2 mg-naloxone 0.5 mg 1 film sublingual DAILY Pain 01/23/22 06/26/25 History sublingual film aspirin 81 mg tablet,delayed 81 mg PO DAILY Blood thinner 03/23/22 06/26/25 History release metformin 500 mg tablet 500 mg PO DAILY Diabetes 08/03/22 06/26/25 History ondansetron HCl 8 mg tablet 8 mg PO DAILY PRN Stomach Upset 08/03/22 06/26/25 History famotidine 40 mg tablet 40 mg PO DAILY STOMACH 08/21/22 06/26/25 History pravastatin 40 mg tablet 40 mg PO DAILY Cholesterol 08/21/22 06/26/25 History cetirizine 10 mg tablet 10 mg PO DAILY ALLERGIES 11/13/22 06/26/25 History albuterol sulfate 90 mcg/actuation 1 puff inhalation DIRECTED PRN 12/05/22 06/26/25 History aerosol inhaler (ProAir HFA) BREATHING diltiazem HCl 30 mg tablet 30 mg PO ONCE HEART 12/05/22 06/26/25 History amantadine HCl 100 mg tablet 100 mg PO DIRECTED . 10/15/23 06/26/25 History fluticasone propionate 50 50 mcg intranasal DIRECTED 10/15/23 06/26/25 History mcg/actuation nasal Breathing Problems spray,suspension fluticasone fur. 200 mcg-umeclid 1 inh inhalation DAILY 01/07/24 06/26/25 History 62.5 mcg-vilant 25 mcg inhalat.powder (Trelegy Ellipta) urea 40 % topical cream 1 applic topical BID 3 months #60 01/07/24 06/26/25 Rx applic melatonin 5 mg capsule 5 mg PO HS 06/16/24 06/26/25 History semaglutide 2 mg/dose (8 mg/3 mL) 2 mg SQ WEEKLY 06/16/24 06/26/25 History subcutaneous pen injector (Ozempic) trazodone 100 mg tablet 200 mg PO HS 06/16/24 06/26/25 History prednisone 20 mg tablet 20 mg PO BID #10 tabs 11/28/24 06/26/25 Rx lidocaine 5 % topical patch 1 patch topical DAILY #30 ea 01/05/25 06/26/25 Rx baclofen 10 mg tablet 10 mg PO TID #90 tabs 06/05/25 06/26/25 Rx pregabalin 150 mg capsule (Lyrica) 150 mg PO TID #90 caps 06/05/25 06/26/25 Rx New Prescriptions to Start Prescriptions: Allergies Allergy/AdvReac Type Severity Reaction Status Date / Time Sulfa (Sulfonamide Allergy Verified 05/04/25 11:31 Antibiotics) Exam *Routine HEENT Exam Head: Present normocephalic and atraumatic Eye: Present PERRL ENT: Present mucous membranes moist *Routine Neck Exam Neck: Present supple *Routine Respiratory Exam Respiratory: Present CTA bilaterally *Routine Cardiovascular Exam Cardiovascular: Present RRR *Routine Abdominal Exam Abdominal: Present soft *Routine Rectal Exam Rectal:: deferred *Routine Genitalia Exam Genitalia:: deferred Routine Back/Spine/Pelvis Exam Back/Spine: Present pain with flexion *Routine Skin Exam Skin: Present intact and warm *Routine Neurological Exam Neurological: Present alert and oriented X3
--- NOTE | 2025-07-17 13:23 | P.PCN_ITS ---
Procedure Date: 07/17/25 Time: 13:38 Anesthesiologist:: Ines Christianson APRN Complications:: None Pre-procedure Diagnosis:: Degenerative disc disease of lumbar spine with lumbar radiculopathy symptoms, chronic pain syndrome Post-procedure Diagnosis:: Same Indications for Procedure:: Patient is a pleasant 55-year-old female who presents today for intrathecal refill and reprogram. Patient does rated her pain today as 7 out of 10. She states she is just having a lot of pain in her low back and legs and that between the pump and they pregabalin and baclofen it is just not cutting it. Patient states the pain is worse with increased activity or walking. She states the pain does interfere with her ability perform activities of daily living such as cooking and cleaning. Patient is interested in any additional help we may be able to provide. Patient is currently managed with bupivacaine 15 mg/mL with a daily dose of. Patient also is prescribed pregabalin 150 mg 3 times a day and baclofen 10 mg 3 times a day. She denies any side effects. Her Bruno has been reviewed and is appropriate. Physical Exam: General: Alert and oriented x3, no acute distress, pleasant and cooperative Lungs: Respirations even and unlabored, symmetrical chest expansion Eyes: PERRL Musculoskeletal: Flexion and extension of lumbar [spine] somewhat guarded secondary to pain, [antalgic gait noted] positive leg raise Neurological: Speech clear, no gross sensory deficit Procedure Details:: Informed consent was obtained and the risk and benefits of the procedure were explained to the patient. The patient had noninvasive monitoring placed including noninvasive blood pressure cuff and pulse oximeter. Patient's pump was interrogated. The area over the pump was cleansed with chlorhexidine as a cleansing solution. In sterile fashion the pump was accessed with a 22-gauge needle. Approximately 7.4 mls of the pump solution was removed and discarded appropriately. The pump was then refilled with 20 mL's of bupivacaine 15 mg/mL. The needle was withdrawn and a bandage was placed over the puncture site. The infusion rate was reprogrammed and continued at bupivacaine 9.438 mg/day. The patient tolerated well with no complication. Plan and Disposition:: Patient tolerated the procedure well with no complications and was discharged neurologically intact. Patient is experiencing worsening pain in her low back with numbness and tingling into her lower extremities. Patient did have limited range of motion of her lumbar spine with a positive leg raise. I did discuss with patient that I do believe they would benefit from a lumbar epidural steroid injection. Risk and benefits were discussed with patient and the patient would like to proceed forward with this plan of care. Patient is on any blood thinners. Patient has tried and failed conservative therapy including oral medications, heat and ice, topicals and continued at home stretching exercise for longer than 12 weeks between injections. Patient has had chronic back pain for longer than 6 months. Patient has not had any epidurals in the past year. We will schedule the patient for an LESI L4-L5 under fluoroscopy. We will also give her a date and time for her intrathecal pump refill. Patient has been instructed to contact the clinic with any concerns before the next appointment. Dr. Sethi has reviewed this note and agrees with this plan of care. This note was dictated using voice recognition software and make contain errors or omissions. All injections are used with Lidocaine, Bupivacaine and dexamethasone. Occasionally urine drug screen is needed to verify patient's compliance with our office pain contract. This is ordered based off specific treatments related to chronic pain with the potential to abuse certain medications. Patient will return to clinic on or before their next intrathecal refill date. We will see the patient back in the clinic at the next intrathecal refill. Patient has been instructed to contact the clinic with any concerns before the next appointment. Dr. Sethi has reviewed this note and agrees with this plan of care. This note was dictated using voice recognition software and make contain errors or omissions. -- It Is medically necessary for this patient to continue to have their intrathecal pump refilled at regular intervals. This patient had an intrathecal pain pump implanted after meeting criteria of chronic intractable pain for greater than 3 months and failing conservative treatments. Patient has committed and been compliant to the treatment plan and all planned follow up care. Since implantation of the intrathecal pain pump, the patient has had decreased pain and been more functional. Oral medications have been reduced including intake of oral opioids. Patient continues to do well with intrathecal therapy with decrease in pain symptoms and increase in functional status. Stopping intrathecal medications can lead to life threatening withdrawal, seizures, c ardiac arrest, severe pain, and possible . Pumps that are not refilled at regular intervals can be damages and cause and need for replacement. We continually titrate dose and concentration to optimize pain relief and function. We are limited in concentration for certain drugs to safely deliver medications through the pump and stay within the recommendations from the Polyanalgesic Consensus Committee Guidelines. Depending on dose and concentration these pumps may need to be refilled sooner than 3 months as we titrate. A UDS is needed to verify patient's compliance with our office pain contract. This is ordered based off specific treatments related to chronic pain with the potential to abuse certain medications.
[2025-07-17 13:24] VITALS: BP 147/84; PULSE 74; RESP 16; O2SAT 92; BMI 33.0
[2025-07-17 13:32] VITALS: BP 137/77; PULSE 73; RESP 18; O2SAT 92
[2025-07-17 13:46] VITALS: BP 136/77; PULSE 71; RESP 18; O2SAT 95
== END 2025-07-17 13:46 | disposition home or self-care (01) ==
PROVIDERS: PCP Emergency Medicine; Visit Provider Nurse Practitioner Family
DX: M51.16 Intervertebral disc disorders with radiculopathy, lumbar region (principal); Z45.1 Encounter for adjustment and management of infusion pump; G89.4 Chronic pain syndrome; I10 Essential (primary) hypertension; E78.5 Hyperlipidemia, unspecified; J44.89 Other specified chronic obstructive pulmonary disease; Z87.891 Personal history of nicotine dependence; Z88.2 Allergy status to sulfonamides; Z79.51 Long term (current) use of inhaled steroids; Z79.899 Other long term (current) drug therapy
CPT/HCPCS: 62370

== ENCOUNTER 2025-07-20 10:00 | Outpatient (RCR) | payer MEDICARE, MEDICAID, SELFPAY | END 2025-07-20 23:59 | disposition home or self-care (01) | LOC: PT.CARL 10:00 | PROVIDERS: PCP Emergency Medicine; Visit Provider Orthopaedic Surgery | DX: M70.62 Trochanteric bursitis, left hip (principal) | CPT/HCPCS: 97035; 97110 ==

== ENCOUNTER 2025-07-30 10:29 | Emergency (ER) | payer MEDICARE, MEDICAID, SELFPAY ==
[2025-07-30] VITALS (7 sets, daily range): BP systolic 136–158; BP diastolic 66–101; PULSE 79–90; RESP 20; TEMP 36.7–36.9; O2SAT 95–99; BMI 33.0
--- NOTE | 2025-07-30 10:48 | CT_ITS ---
FINAL REPORT TECHNIQUE: Thin section axial CT images with coronal and sagittal reformats were performed of the left hip. This study was performed with techniques to keep radiation doses as low as reasonably achievable (ALARA). Individualized dose reduction techniques using automated exposure control or adjustment of mA and/or kV according to the patient''s size were employed. CLINICAL HISTORY: pain COMPARISON: None FINDINGS: There are no fractures. The hip joint space is preserved. The femoral head has a normal smooth contour. No findings to suggest avascular necrosis. There are no masses or fluid collections. Vascular calcifications are noted in the left common femoral artery. IMPRESSION: No acute findings. Reviewed, Interpreted and Dictated by Lee Durbin MD Transcribed by Zahira Joseph Authenticated and [facility]
--- NOTE | 2025-07-30 10:48 | CT_ITS ---
FINAL REPORT TECHNIQUE: Thin section axial CT images with coronal and sagittal reformats were performed of the right hip. This study was performed with techniques to keep radiation doses as low as reasonably achievable (ALARA). Individualized dose reduction techniques using automated exposure control or adjustment of mA and/or kV according to the patient''s size were employed. CLINICAL HISTORY: pain COMPARISON: None FINDINGS: There are no fractures. There is mild narrowing of the right hip joint space. The femoral head has a normal smooth contour. No abnormal sclerosis or lucency is identified. There are no findings to suggest avascular necrosis. There are no masses or fluid collections. Mild vascular calcifications are noted of the right common femoral artery. IMPRESSION: Mild narrowing of the right hip joint space. Reviewed, Interpreted and Dictated by Lee Durbin MD Transcribed by Zahira Joseph Authenticated and [facility]
--- NOTE | 2025-07-30 10:48 | CT_ITS ---
FINAL REPORT TECHNIQUE: Axial images were obtained of the lumbar spine by computed tomography. Coronal and sagittal reconstruction process performed. This study was performed with techniques to keep radiation doses as low as reasonably achievable (ALARA). Individualized dose reduction techniques using automated exposure control or adjustment of mA and/or kV according to the patient''s size were employed. CLINICAL HISTORY: pain COMPARISON: None FINDINGS: There are advanced changes of degenerative disc disease at L4-5 and L5-S1. Grade 1 spondylolisthesis is noted of L4 on L5. A pump/stimulator is present in the spinal canal. L1-2: Unremarkable. L2-3: Mild diffuse disc bulge. Mild bilateral neuroforaminal narrowing. L3-4: Moderate diffuse disc bulge. Mild to moderate bilateral neuroforaminal narrowing. L4-5: Large disc bulge. Left posterolateral disc protrusion. Moderate compromise left lateral recess. High-grade left neuroforaminal narrowing. L5-S1: Moderate diffuse disc bulge. Right paracentral disc protrusion. Vacuum disc within the protruded component well-seen on image 73 of series 3. Mild to moderate compromise right lateral recess. IMPRESSION: Spondylolisthesis of L4 on L5 with left posterolateral disc protrusion, moderate compromise of the left lateral recess, and high-grade left neuroforaminal narrowing. Small right paracentral disc protrusion at L5-S1 with mild to moderate compromise right lateral recess. Reviewed, Interpreted and Dictated by Lee Durbin MD Transcribed by Zahira Joseph Authenticated and [facility]
--- OUTSIDE RECORDS SUMMARY | 2025-07-30 11:03 | XMS_ITS | Clinical Summary ---
Author Organization [facility] Address [address] [place] [address] Care Team Providers Care Service Order Clerk Name Role Phone None, Physician Primary Care Provider Unavailabl e Allergies Active Allergy Reactions Criticality Noted Date Comments Sulfa Antibiotics 12/17/2024 Medications montelukast (SINGULAIR) 10 MG tablet Take 10 mg by mouth nightly. Active hydrOXYzine (ATARAX) 50 MG tablet Take 50 mg by mouth 3 (three) times daily as needed for Itching. Active FLUTICASONE PROPIONATE, NASAL, NA Instill 50 mcg into nose daily 2 sprays nasal . Active furosemide (LASIX) 20 MG tablet Take 20 mg by mouth daily. Active melatonin 3 MG TABS tablet Take 5 mg by mouth nightly 1 tab at bedtime. Active fluticasone-ume clidin-vilant (TRELEGY ELLIPTA) 200-62.5-25 MCG/ACT inhalation Inhale 1 puff into the lungs daily One puff inhaled daily. Active albuterol HFA 108 (90 Base) MCG/ACT inhaler Inhale 2 puffs into the lungs every 4 (four) hours as needed for Wheezing Take 2 puffs inhaled every four hours as needed for wheezing. Active carvedilol (COREG) 6.25 MG tablet Take 1 tablet by mouth 2 (two) times daily with meals. 60 tablet 12/22/2024 12:49 PM EST 12/22/2024 Active PARoxetine (PAXIL) 20 MG tablet Take 1 tablet by mouth nightly At bedtime. 30 tablet 12/22/2024 12:49 PM EST 12/22/2024 Active traZODone (DESYREL) 100 MG tablet Take 1 tablet by mouth nightly. 30 tablet 12/22/2024 Active Active Problems Problem Noted Date Diagnosed Date COPD exacerbation 12/18/2024 Degenerative joint disease (DJD) of lumbar spine 12/18/2024 Diabetic foot 12/18/2024 Chronic lower back pain 12/18/2024 Hyperlipidemia 12/18/2024 Medication adverse effect 12/18/2024 Obesity (BMI 30.0-34.9) 12/18/2024 Palpitations 12/18/2024 Pneumonia 12/18/2024 Type 2 diabetes mellitus 12/18/2024 Toxic metabolic encephalopathy 12/18/2024 Acute kidney injury 12/18/2024 DEBI (obstructive sleep apnea) 05/14/2023 Resolved Problems Problem Noted Date Diagnosed Date Resolved Date Cirrhosis 12/18/2024 12/18/2024 Altered mental status 12/18/20242024 Hospital-acquired pneumonia 12/18/2024 12/18/2024 AMS (altered mental status) 12/18/2024 12/18/2024 Social History Tobacco Use Types Packs/Day Years Used Date Smoking Tobacco: Former Cigarettes Smokeless Tobacco: Never Tobacco Cessation:Counseling Given: No Alcohol Use Standard Drinks/Week Comments Not Currently 0 (1 standard drink = 0.6 oz pur e alcohol) Comments No Sex and Gender Information Value Date Recorded Sex Assigned at Female 12/17/2024 11:24 PM EST Legal Sex Female 8:13 PM EST Gender Identity Female 12/17/2024 11:24 PM EST Sexual Orientation Straight 12/17/2024 11 :24 PM EST Last Filed Vital Signs Vital Sign Reading Time Taken Comments Blood Pressure 120/73 12/22/2024 10:06 AM EST Pulse 103 12/22/2024 10:06 AM EST Temperature 36.8 C (98.2 F) 12/22/2024 10:06 AM EST Respiratory Rate 18 12/22/2024 10:06 AM EST Oxygen Saturation 100% 12/22/2024 10:06 AM EST Inhaled Oxygen Concentration - - Weight 74.4 kg (164 lb) 12/17/2024 8:43 PM EST Height 154.9 cm (5' 1 ) 12/17/2024 8:43 PM EST Body Mass Index 30.99 12/17/2024 8:43 PM EST Plan of Treatment Health Maintenance Due Date Last Done Comments Breast Cancer Screening 1969 CT Colonography 1969 Colonoscopy 1969 Colorectal Cancer Screening 1969 FIT-DNA 1969 FIT 1969 FOBT 1969 Sigmoidoscopy 1969 Hepatitis A (HepA) Vaccine (1 of 2 - Risk 2-dose series) 1988 Hepatitis B (HepB) Vaccine (1 of 3 - 19+ 3-dose series) 1988 Tdap/Td Vaccine >11 yo (1 - Tdap) 1988 Cervical Cancer Screening 1990 Lung Cancer Screening Risk Assessment 2019 Shingles (Shingrix) (1 of 2) 2019 Annual SDOH Screening 11/26/2024 PAF (Practitioner Assessment Form) 11/26/2024 Diabetic Eye Exam 12/18/2024 Diabetic Foot Exam 12/18/2024 Diabetic Hemoglobin A1C 12/18/2024 Diabetic Lipid Panel 12/18/2024 Diabetic Presence of Metformin 12/18/2024 Diabetic Presence of Statin 12/18/2024 Diabetic Urine Microalbumin 12/18/2024 Influenza Vaccine (#1) 2025 Diabetic Creatinine Level 12/21/20252024, 12/20/2024, 12/19/2024, Additional history exists Pneumococcal Vaccines >50 yo Completed 07/25/2024 Haemophilus Influenzae Type B (Hib) Vaccine Aged Out No longer eligible based on patient's age to complete this topic Meningococcal ACWY Aged Out No longer eligible based on patient's age to complete this topic Polio (IPV) Aged Out No longer eligi ble based on patient's age to complete this topic Rotavirus (RV) Vaccine Aged Out No lo nger eligible based on patient's age to complete this topic Procedures Procedure Name Priority Date/Time Associated Diagnosis Comments BASIC METABOLIC PANEL (BMP) Routine 12/21/2024 5:28 AM EST from Last 3 Months or Most Recently Relevant to Health Maintenance Results * (ABNORMAL) Basic Metabolic Panel (BMP) (12/21/2024 5:28 AM EST) Sodium 140 136 - 145 mmol/L 12/21/2024 6:13 AM [facility] ([id number]) Comment:Excess protein and/o r lipids can falsely decrease sodium levels (pseudo hyponatremia). Potassium 4.3 3.5 - 5.1 mmol/L 12/21/2024 6:13 AM [facility] ([id number]) Comment:Falsely elevated pot assium can occur in patients with high WBC or platelet counts. Chloride 105 98 - 107 mmol/L 12/21/2024 6:13 AM [facility] ([id number]) Comment:Falsely elevated chl oride levels can be seen in patients taking bromide containing medications. Carbon Dioxide 26 22 - 29 mmol/L 12/21/2024 6:13 AM [facility] ([id number]) Anion Gap 9 5 - 13 mmol/L 12/21/2024 6:13 AM [facility] ([id number]) Comment:Calculation: Na - (C l + CO2) Glucose, Random 75 71 - 99 mg/dL 12/21/2024 6:13 AM [facility] ([id number]) Blood Urea Nitrogen (BUN) 9(L) 10 - 20 mg/dL 12/21/2024 6:13 AM [facility] ([id number]) Creatinine, Blood 0.82 0.55 - 1.02 mg/dL 12/21/2024 6:13 AM [facility] ([id number]) BUN/Creatinine Ratio 11.0 RATIO 12/21/2024 6:13 AM [facility] ([id number]) Estimated GFR (Cr) 84 >60 mL/min/1.7 3m2 12/21/2024 6:13 AM [facility] ([id number]) Comment:eGFR calculated base d on IDMS traceable, enzymatic creatinine method using the CKD-EPI 2020 equation. Calcium 9.1 8.4 - 10.2 mg/dL 12/21/2024 6:13 AM [facility] ([id number]) Blood VENOUS BLOOD SPECIMEN / Unknown Venipuncture / Unknown 12/21/2024 5:28 AM EST 12/21/2024 5:44 AM EST us Claudia Vazquez MD LAB BLOOD ORDERABLES Final Resul t [facility] ([id number]) [address] [place] [address] from Last 3 Months or Most Recently Relevant to Health Maintenance Insurance [employer] MEDICARE REPLACEMENT MEDICAID [place] Member Subscriber Plan / Payer (Ef fective 2024-Present) Name:RhiannaStephan campaa Relation to Subscriber:Self Name:Coretta Moctezuma Payer ID:[id number] Group ID:Not on file Type:Medicaid Address: [address] [place] [id number] Advance Directives * Full Code (Latest Code Status on File) Date Activated Date Inactivated Comments 12/18/2024 9:41 AM 12/22/2024 5:51 PM Care Teams Service Order Clerk Relationship Specialty Start Date End Date None, Physician PCP - General 12/18/24
--- OUTSIDE RECORDS SUMMARY | 2025-07-30 11:03 | XMS_ITS | Clinical Summary ---
[facility] Organization [facility] Address [address] [place] [address] Care Team Providers Care Cupola Mechanic Name Role Phone Tutu Vance MD Primary Care Provider Allergies Active Allergy Reactions Criticality Noted Date Comments Codeine Nausea Only Low 10/20/2024 Sulfa Antibiotics GI Intolerance Medium 02/05/2023 Medications ProAir HFA 108 (90 Base) MCG/ACT inhaler 10/11/2021 Act lilian busPIRone (BUSPAR) 10 MG tablet 08/24/2021 Active fluticasone (FLONASE) 50 MCG/ACT nasal spray 08/23/2021 Active hydrOXYzine (ATARAX) 50 MG tablet 09/17/2021 Active pantoprazole (PROTONIX) 40 MG EC tablet 10/24/2021 Active montelukast (SINGULAIR) 10 MG tablet Take 1 tablet by mouth Every Evening. 10/28/2021 Active PARoxetine (PAXIL) 40 MG tablet Take 1 tablet by mouth Every Night. 10/27/2021 Active metFORMIN (GLUCOPHAGE) 500 MG tablet 11/28/2022 Activ e Trelegy Ellipta 100-62.5-25 MCG/ACT inhaler 01/22/2023 Act lilian famotidine (PEPCID) 40 MG tablet 11/21/2022 Active cetirizine (zyrTEC) 10 MG tablet 01/04/2023 Active ipratropium-alb uterol (DUO-NEB) 0.5-2.5 mg/3 ml nebulizer 02/22/2023 Active pregabalin (LYRICA) 300 MG capsule 04/18/2023 Active pravastatin (PRAVACHOL) 40 MG tablet 03/13/2023 Active Baclofen (LIORESAL) 5 MG tablet Take 1 tablet by mouth Every 12 (Twelve) Hours. 02/18/2025 Active ALPRAZolam (XANAX) 0.5 MG tablet Take 1 tablet by mouth Daily. 02/10/2025 Active carvedilol (COREG) 6.25 MG tablet Take 1 tablet by mouth 2 (Two) Times a Day. as directed Active zolpidem (AMBIEN) 10 MG tablet Take 1 tablet by mouth Daily. 02/18/2025 Active estradiol (ESTRACE) 0.1 MG/GM vaginal creamIndication s:Vaginal atrophy Insert 2 g into the vagina Daily. 1 each 6 04/10/2025 Active Active Problems Problem Noted Date Diagnosed Date Shortness of breath 10/07/2024 Assessment & Plan (10/20/2024 3:29 PM EST): Likely due to COPD. She completed an echocardiogram today that revealed an LVEF of 66 to 70%, normal diastolic function and no significant valvular regurgitation or stenosis. She is planning upcoming routine colonoscopy. Okay to proceed at low risk. Assessment & Plan (10/07/2024 12:19 PM EST): Likely due to COPD but will check echo prior to cardiac clearance. - Update echocardiogram DEBI (obstructive sleep apnea) 05/14/2023 Assessment & Plan (10/20/2024 3:29 PM EST): History of DEBI with baseline AHI of 17, intolerant to CPAP. At last office visit in September 2022, she agreed to a titration study. During the titration study on 11/08/2022, she failed trial of CPAP and BiPAP, she asked to discontinue therapy and was intolerant. She continues to use 2 L of oxygen at night but adamantly declines PAP therapy. Continue oxygen HS. Assessment & Plan (10/07/2024 12:18 PM EST): History of DEBI with baseline AHI of 17, intolerant to CPAP. At last office visit in September 2022, she agreed to a titration study. During the titration study on 11/08/2022, she failed trial of CPAP and BiPAP, she asked to discontinue therapy and was intolerant. She continues to use 2 L of oxygen at night but adamantly declines PAP therapy. Continue oxygen HS. Assessment & Plan (12/05/2023 8:57 AM EST): History of DEBI with baseline AHI of 17, intolerant to CPAP. At last office visit in September 2022, she agreed to a titration study. During the titration study on 11/08/2022, she failed trial of CPAP and BiPAP, she asked to discontinue therapy and was intolerant. She continues to use 2 L of oxygen at night but adamantly declines PAP therapy. Continue oxygen HS. Assessment & Plan (05/14/2023 7:40 PM EDT): History of DEBI with baseline AHI of 17, intolerant to CPAP. At last office visit in September 2022, she agreed to a titration study. During the titration study on 11/08/2022, she failed trial of CPAP and BiPAP, she asked to discontinue therapy and was intolerant. She continues to use 2 L of oxygen at night but adamantly declines PAP therapy. Continue oxygen HS. Family history of colon cancer in father 021 Overview (11/07/2021): Last colonoscopy 2018 Hyperlipidemia Assessment & Plan (05/14/2023 7:41 PM EDT): Managed by primary care provider. Requested labs for review. - Continue pravastatin 40 mg once daily. Palpitations Assessment & Plan (10/20/2024 3:29 PM EST): History SVT noted on previous Holter monitor. Denies recent palpitations - Continue diltiazem Assessment & Plan (10/07/2024 12:17 PM EST): History SVT noted on previous Holter monitor. Denies recent palpitations - Continue diltiazem Assessment & Plan (12/05/2023 8:57 AM EST): History SVT noted on previous Holter monitor. Denies recent palpitations - Continue diltiazem Assessment & Plan (05/14/2023 7:42 PM EDT): History SVT noted on previous Holter monitor. Denies recent palpitations - Continue diltiazem Encounters Date Type Department Care Team Description 05/20/2025 5:00 AM EDT Outside Facility Service [facility] CARDIOLOGY [address] [place] [address] Татьяна Mace MD from Last 3 Months Family History Medical History Relation Name Comments Colon cancer Father Diabetes Father Hypertension Father Heart disease Maternal Grandfather Hypertension Mother Diabetes Paternal Grandmother Breast cancer Neg Hx Ovarian cancer Neg Hx Uterine cancer Neg Hx Relation Name Status Comments Father Maternal Grandfather Mother Paternal Grandmother Social History Tobacco Use Types Packs/Day Years Used Date Smoking Tobacco: Former Cigarettes Smokeless Tobacco: Never Comments:Vaping Alcohol Use Standard Drinks/Week Comments Not Currently 0 (1 standard drink = 0.6 oz pur e alcohol) light Comments No Sex and Gender Information Value Date Recorded Sex Assigned at Not on file Legal Sex Female 1:31 PM EDT Gender Identity Not on file Sexual Orientation Not on file 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 OBGYN [address] [place] [address] Caroline Herrera M, PEN OR PENCIL ASSEMBLY MACHINE OPERATOR [address] [facility] [address] [place] [address] 10/20/2025 9:30 AM EST Office Visit [facility] CARDIOLOGY [address] [place] [address] Nancy Pfeiffer APRN [address] [place] [address] Health Maintenance Due Date Last Done Comments LIPID PANEL 1969 DIABETIC EYE EXAM 1979 DIABETIC FOOT EXAM 1979 URINE MICROALBUMIN-CREATININ E RATIO (uACR) 1979 Hepatitis B (1 of 3 - 19+ 3- dose series) 1988 TDAP/TD VACCINES (1 - Tdap) 1988 MAMMOGRAM 2009 COLOGUARD 2014 COLON CANCER SCREENING 5 YEA R SIGMOIDOSCOPY 2014 CT COLONOGRAPHY 2014 FECAL OCCULT BLOOD TEST 2014 FIT Testing (1 year) 2014 ZOSTER VACCINE (1 of 2) 2019 HEMOGLOBIN A1C 07/25/2021 HEPATITIS C SCREENING 07/25/2021 Annual Gynecologic Pelvic an d Breast Exam 02/07/2024 02/05/2023, 11/07/2021 ANNUAL WELLNESS VISIT 05/27/2025 05/27/2024 INFLUENZA VACCINE 08/26/2025 COLONOSCOPY 02/25/2028 02/24/2018, 11/26/2017 COLORECTAL CANCER SCREENING 02/25/2028 COVID-19 Vaccine Completed 07/25/2024, , 05/11/2023, Additional history exists Pneumococcal Vaccine 50+ Completed 07/25/2024 Procedures Procedure Name Priority Date/Time Associated Diagnosis Comments SCANNED - PULMONARY RESULTS 05/15/2025 from Last 3 Months Results * Pulmonary Results Scan (05/15/2025) Татьяна Mace MD PFT ORDERABLES Final Result from Last [address] [facility] MEDICARE ADVANTAGE [facility] HMO Care Teams Cupola Mechanic Relationship Specialty Start Date End Date Tutu Vance MD [address] [place] [address] PCP - General Emergency Medicine 05/14/23
--- OUTSIDE RECORDS SUMMARY | 2025-07-30 11:03 | XMS_ITS | Encounter Summary ---
[facility] Organization [facility] Address [address] [place] [address] Care Team Providers Care Tunnel Drier Operator Name Role Phone Tutu Vance MD Primary Care Provider [phone] Reason for Visit * Reason Comments Med Refill Encounter Details Date Type Department Care Team (Late Contact Info) Description 02/26/2024 Refill [facility] OBGYN [address] [place] [address] Kristina Gautam MD [address] [place] [address] Hormone replacement therapy (HRT) Social History Tobacco Use Types Packs/Day Years Used Date Smoking Tobacco: Every Day Cigarettes Smokeless Tobacco: Never Comments:Vaping Alcohol Use Standard Drinks/Week Comments Not Currently 0 (1 standard drink = 0.6 oz pur e alcohol) light Comments No Sex and Gender Information Value Date Recorded Sex Assigned at Not on file Legal Sex Female 1:31 PM EDT Gender Identity Not on file Sexual Orientation Not on file 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 Not on file Not on file documented as of this encounter Plan of Treatment Upcoming Encounters Date Type Department Care Team (Late Contact Info) Description 07/31/2025 11:00 AM EDT Office Visit [facility] OBGYN [address] [place] [address] Caroline Herrera, PATIENT SERVICES CLERK [address] [place] [id number] 10/20/2025 9:30 AM EST Office Visit [facility] CARDIOLOGY [address] [place] [address] Nancy Pfeiffer APRN [address] [place] [address] documented as of this encounter Visit Diagnoses Diagnosis Hormone replacement therapy (HRT) documented in this encounter Care Teams Tunnel Drier Operator Relationship Specialty Start Date End Date Tutu Vance MD [address] [place] [address] PCP - General Emergency Medicine 05/14/23 documented as of this encounter
--- OUTSIDE RECORDS SUMMARY | 2025-07-30 11:03 | XMS_ITS | Clinical Summary ---
Author Organization [facility] Address [address] [place] [address] Care Team Providers Care Concrete Puddler Name Role Phone Arline Roberts Primary Care Provider Family History Medical History Relation Name Comments [...] Vaccines (1 of 2) 2019 UKY-Influenza Vaccine (#1) 2025 [id number] Vaccine Completed 07/25/2024, 10/25/2023, 05/11/2023, Additional history [...] patient's age to complete this topic Insurance Care Teams Concrete Puddler Relationship Specialty Start Date End Date Arline Roberts PA [address] [place] [address] [place] [id number] [facility] - General 04/08/21
--- OUTSIDE RECORDS SUMMARY | 2025-07-30 11:03 | XMS_ITS | Referral Summary ---
Author Organization [employer] ([place], [place], [place], [place]) Address [address] [place] [address] Care Team Providers Care Chisel Mortiser Operator Name Role Phone Unavailable Primary Care Provider Unavailabl e Social History Tobacco Use Types Packs/Day Years Used Date Smoking Tobacco: Never Assessed Comments Unknown Sex and Gender Information Value Date Recorded Sex Assigned at Not on file Legal Sex Female 4:13 PM CDT Gender Identity Not on file Sexual Orientation Not on file Plan of Treatment Not on file Insurance [facility] MEDICARE O MEDICAID OF [place]
--- OUTSIDE RECORDS SUMMARY | 2025-07-30 11:03 | XMS_ITS | Encounter Summary ---
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 Not on file Not on file documented as of this encounter Miscellaneous Notes * Telephone Encounter - Mary Toribio MA - 04/22/2024 3:21 PM EDT Patient needs to schedule annual exam documented in this encounter Plan of Treatment Upcoming Encounters Date Type Department Care Team (Late st Contact Info) Description 07/31/2025 11:00 AM EDT Office Visit [facility] OBGYN [address] [place] [address] Caroline Herrera, CORPORATE ACCOUNTANT [address] [facility] [address] [place] [address] 10/20/2025 9:30 AM EST Office Visit [facility] CARDIOLOGY [address] [place] [address] Nancy Pfeiffer, CORPORATE ACCOUNTANT [address] [place] [address] documented as of this encounter Visit Diagnoses Diagnosis Hormone replacement therapy (HRT) documented in this encounter Care Teams Press Room Supervisor Relationship Specialty Start Date End Date Tutu Vance MD [address] [place] [address] PCP - General Emergency Medicine 05/14/23 documented as of this encounter
--- OUTSIDE RECORDS SUMMARY | 2025-07-30 11:03 | XMS_ITS | Clinical Summary ---
Author Organization [employer] ([place], [place], [place], [place]) Address [address] [place] [address] Care Team Providers Care Rough Planer Tender Name Role Phone Unavailable Primary Care Provider Unavailabl e Social History Tobacco Use Types Packs/Day Years Used Date Smoking Tobacco: Never Assessed Comments Unknown Sex and Gender Information Value Date Recorded Sex Assigned at Not on file Legal Sex Female 4:13 PM CDT Gender Identity Not on file Sexual Orientation Not on file Plan of Treatment Not on file Insurance [facility] MEDICARE O MEDICAID OF [place]
--- OUTSIDE RECORDS SUMMARY | 2025-07-30 11:03 | XMS_ITS | Encounter Summary ---
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 on file Not on file documented as of this encounter Plan of Treatment Upcoming Encounters Date Type Department Care Team (Late st Contact Info) Description 07/31/2025 11:00 AM EDT Office Visit [facility] OBGYN [address] [place] [address] Caroline Herrera, SAFETY INSPECTOR [address] [address] 10/20/2025 9:30 AM EST Office Visit [facility] CARDIOLOGY [address] [place] [address] Nancy Pfeiffer APRN [address] [place] [address] documented as of this encounter Visit Diagnoses Not on filedocumented in this encounter Care Teams Engineering Patternmaker Relationship Specialty Start Date End Date Tutu Vance MD [address] [place] [address] PCP - General Emergency Medicine 05/14/23 documented as of this encounter
[2025-07-30 11:11] LABS: Hematocrit 39.6 % (37.0-47.0); Hemoglobin 12.8 g/dL (12.2-16.2); Immature Granulocytes % 0.9 %; Mean Corpuscular HGB Conc 32.3 g/dL (31.8-35.4); Mean Corpuscular Hemoglobin 27.6 pg (27.0-31.2); Mean Corpuscular Volume 85.5 fl (81-99); Nucleated Red Blood Cells % 0 %; Platelet Count 191 K/mm3 (142-424); Red Blood Count 4.63 M/mm3 (4.20-5.40); Red Cell Distribution Width-SD 41.5 fL; White Blood Count 9.2 K/mm3 (4.8-10.8)
[2025-07-30] MEDS: DEXAMETHASONE 4MG/ML 1ML VIAL 8 MG IV (11:20)
[2025-07-30] MEDS: KETOROLAC 30MG/ML VIAL 30 MG IV (11:20)
[2025-07-30] MEDS: ORPHENADRINE CITRATE 60MG/2ML VIAL 60 MG IV (11:21)
[2025-07-30 11:27] LABS: Albumin Level 4.4 g/dl (3.5-5.0); Chloride 103 mmol/L (98-107); Sodium 140 mmol/L (136-145)
[2025-07-30 11:28] LABS: Potassium 3.7 mmoL/L (3.5-5.1)
--- NOTE | 2025-07-30 11:29 | ED_ITS ---
<Statement entered by Kassandra Houser MD - 07/30/25 15:25> I was consulted by the [facility]ALE[facility], and we discussed the complexity of the problems being addressed. I approved the treatment and management plan for this patient's care in the emergency department, thus performing a substantive portion of the medical decision making. Kassandra Houser MD, NIRAJ, FACEP Discharge Plan Disposition Patient Disposition: Home, Self-Care Prescriptions Prescriptions: New ketorolac 10 mg tablet 10 mg PO Q8H PRN (Reason: pain) 5 Days Qty: 20 0RF No Action hydroxyzine HCl 50 mg tablet 50 mg PO TID metformin 500 mg tablet 500 mg PO DAILY ondansetron HCl 8 mg tablet 8 mg PO DAILY PRN (Reason: Stomach Upset) pravastatin 40 mg tablet 40 mg PO DAILY famotidine 40 mg tablet 40 mg PO DAILY diltiazem HCl 30 mg tablet 30 mg PO ONCE albuterol sulfate [ProAir HFA] 90 mcg/actuation HFA aerosol inhaler 1 puff inhalation DIRECTED PRN (Reason: BREATHING) amantadine HCl 100 mg tablet 100 mg PO DIRECTED fluticasone propionate 50 mcg/actuation spray,suspension 50 mcg intranasal DIRECTED lidocaine-prilocaine 2.5-2.5 % cream 1 applic TP .COMPLEX Rx Instructions: 1 applic topical 5XDAY; buprenorphine-naloxone 2-0.5 mg film 1 film SL DAILY aspirin 81 mg tablet,delayed release (DR/EC) 81 mg PO DAILY cetirizine 10 mg tablet 10 mg PO DAILY Trelegy Ellipta 200-62.5-25 mcg blister with device 1 inh inhalation DAILY Patient Comments: INHALE 1 PUFF BY MOUTH EVERY DAY urea 40 % cream 1 applic topical BID 90 Days Qty: 60 3RF trazodone 100 mg tablet 200 mg PO HS Patient Comments: TAKE 2 TABLETS BY MOUTH AT BEDTIME melatonin 5 mg capsule 5 mg PO HS Patient Comments: TAKE 1 CAPSULE BY MOUTH EVERY NIGHT AT BEDTIME Ozempic 2 mg/dose (8 mg/3 mL) pen injector 2 mg SQ WEEKLY Patient Comments: INJECT 2MG SUBCUTANEOUSLY ONCE WEEKLY buspirone 10 MG tablet 10 mg PO BID montelukast 10 MG tablet 10 mg PO PM estradiol 0.5 MG tablet 0.5 mg PO DAILY paroxetine HCl 40 MG tablet 40 mg PO DAILY pantoprazole 40 mg tablet,delayed release (DR/EC) 40 mg PO DAILY prednisone 20 mg tablet 20 mg PO BID Qty: 10 0RF lidocaine 5 % adhesive patch,medicated 1 patch topical DAILY Qty: 30 0RF Rx Instructions: leave on most painful area for up to 12 hrs baclofen 10 mg tablet 10 mg PO TID Qty: 90 2RF pregabalin [Lyrica] 150 mg capsule 150 mg PO TID Qty: 90 2RF Referrals Follow up/Referrals: Tutu Vance MD [Primary Care Provider, Medical] - See instructions Joaquin Christianson DO [Staff Physician, Orthopedics] - See instructions Activity Restrictions/Add. Instructions Additional Instructions/Restrictions: Continue to use heat and ice for comfort. Clinical Impressions Clinical Impression: Lumbar radiculopathy Hip bursitis, left Qualifiers: Hip bursitis location: trochanteric bursitis Qualified Code(s): M70.62 - Trochanteric bursitis, left hip Instructions Patient Instructions: Bursitis, DI for Low Back Pain, DI for Hip Bursitis, Lumbar Radiculopathy Print Language Print Language: Japanese Discharge ED Provider: Kassandra Houser General Adult HPI General Chief complaint: Back Pain/Injury Stated complaint: Lower Back Pain into L leg Time Seen by Provider: 07/30/25 10:47 Mode of Arrival: Ambulatory Source of Information: Patient Description of Symptoms (Recalled from ER Triage Doc. by RN): Patient reports a 2-3 days history of bilateral lower back pain that radiates into her left hip down to her left foot. Also complains of right leg swelling. History of Present Illness HPI narrative: 55-year-old female presents to the ED today for complaint of bilateral low back pain, bilateral hip pain, and right foot swelling. This has been going on for 2 to 3 days. She states she took Lyrica and baclofen this morning. She has been using heat and cold packs that have helped some. He got out of physical therapy last Sunday for left hip bursitis. The physical therapy staff believe that her pain is coming from her low back. She has appointment on Sunday with Ortho. She was mopping a few days ago and she believes this may be the culprit of her increased pain. She has had no scans or imaging. She has had no falls or traumas. She tells me she does have peripheral neuropathy. Related Data Home Medications ?Medication ?Instructions ?Recorded ?Confirmed buspirone 10 mg tablet 10 mg PO BID mood 05/12/21 0 07/17/25 estradiol 0.5 mg tablet 0.5 mg PO DAILY HRT 05/12/21 07/17/25 montelukast 10 mg tablet 10 mg PO PM allergies 07/17/25 paroxetine HCl 40 mg tablet 40 mg PO DAILY mood 07/17/25 pantoprazole 40 mg tablet,delayed 40 mg PO DAILY Reflu x/Acid reflux 07/07/21 07/17/25 release lidocaine-prilocaine 2.5 %-2.5 % 1 applic topical .[employer] PLEX Pain 09/08/21 07/17/25 topical cream hydroxyzine HCl 50 mg tablet 50 mg PO TID Pain 2 07/17/25 buprenorphine 2 mg-naloxone 0.5 mg 1 film sublingual D AILY Pain 01/23/22 07/17/25 sublingual film aspirin 81 mg tablet,delayed 81 mg PO DAILY Blood thin ner 03/23/22 07/17/25 release metformin 500 mg tablet 500 mg PO DAILY Diabetes 07/1707/17/25 ondansetron HCl 8 mg tablet 8 mg PO DAILY PRN Stomach Upset 08/03/22 07/17/25 famotidine 40 mg tablet 40 mg PO DAILY STOMACH 08/2107/17/25 pravastatin 40 mg tablet 40 mg PO DAILY Cholesterol 0 08/21/22 07/17/25 cetirizine 10 mg tablet 10 mg PO DAILY ALLERGIES 07/17/25 albuterol sulfate 90 mcg/actuation 1 puff inhalation A S DIRECTED PRN 12/05/22 07/17/25 aerosol inhaler (ProAir HFA) BREATHING diltiazem HCl 30 mg tablet 30 mg PO ONCE HEART 3 07/17/25 amantadine HCl 100 mg tablet 100 mg PO DIRECTED . 1 12/15/22 07/17/25 fluticasone propionate 50 50 mcg intranasal DIRECTE D 10/15/23 07/17/25 mcg/actuation nasal Breathing Problems spray,suspension fluticasone fur. 200 mcg-umeclid 1 inh inhalation HAN Y 01/07/24 07/17/25 62.5 mcg-vilant 25 mcg inhalat.powder (Trelegy Ellipta) melatonin 5 mg capsule 5 mg PO HS 06/16/24 07/17/25 semaglutide 2 mg/dose (8 mg/3 mL) 2 mg SQ WEEKLY 06/1607/17/25 subcutaneous pen injector (Ozempic) trazodone 100 mg tablet 200 mg PO HS 06/16/24 Previous Rx's ?Medication ?Instructions ?Recorded urea 40 % topical cream 1 applic topical BID 3 month s #60 01/07/24 applic prednisone 20 mg tablet 20 mg PO BID #10 tabs lidocaine 5 % topical patch 1 patch topical DAILY #30 ea 01/05/25 baclofen 10 mg tablet 10 mg PO TID #90 tabs pregabalin 150 mg capsule (Lyrica) 150 mg PO TID #90 c aps 06/05/25 ketorolac 10 mg tablet 10 mg PO Q8H PRN pain 5 days #20 07/30/25 tabs Allergies Allergy/AdvReac Type Severity Reaction Status Date / Time Sulfa (Sulfonamide Allergy Verified 05/04/25 11:31 Antibiotics) [facility] Disclaimer: The information contained in this section may have been updated after the patient was seen, as this information can be updated by other users. 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 current occupational exposures/hazards: No caffeine: Yes Have you lived/traveled outside US in past 30 days?: No Contact w/someone who lives/traveled outside US past 30 days?: No Exposure to someone with infectious disease in past 14 days?: No Do you have a fever (greater than 100.4 F or 38 C)?: No Have you tested positive for COVID-19?: No Exposed to someone with COVID-19 in past 14 days?: No Do you have a sore throat?: No Do you have a cough?: No Do you have any weakness?: No Do you have any diarrhea?: No Are you experiencing any unusual bleeding?: No Do you have any muscle aches/pain?: No Do you have any abdominal pain?: No Are you experiencing loss of taste or smell?: No Other Medical History Have you received the Flu Vaccine for this season: No Have you received the Pneumonia Vaccine: No ROS Obtained: Yes Systems reviewed as appropriate & no additional complaints except as documented Constitutional Constitutional: Reports as per HPI Physical Exam General General appearance: alert and in distress Head Head exam: normocephalic Eye Eye exam: Present PERRL and EOMI ENT ENT exam: Present normal oropharynx and mucous membranes moist Neck Neck exam: Present full ROM and trachea midline Respiratory Respiratory exam: Present normal lung sounds bilaterally Cardiovascular Cardiovascular exam: Present regular rate, normal rhythm, normal heart sounds, +S1 and +S2 Extremities Exam Extremities exam: Present full ROM, normal capillary refill and edema (Right foot) Back Exam Back exam: Present tenderness and muscle spasm Neurological Exam Neurological exam: Present alert and oriented X3 Skin Skin exam: Present warm, dry and intact Medical Decision Making Medical Records Screening: Per USPSTF and CDC recommendations, given the prevalence of disease in our region, it is our hospital?s policy to screen for HIV and viral Hepatitis for all patients aged 18 and over and those with ongoing risk factors. Bruno Inquiry Pt receiving controlled substance: No Bruno was queried for this patient: No Vital Signs: 07/30/25 10:43 07/30/25 10:44 07/30/25 11:04 Temperature 98.0 F Temperature Source Oral Pulse Rate 90 79 Pulse Rate [Radial] 88 Respiratory Rate 20 Blood Pressure 141/98 H 136/80 Blood Pressure [Right Arm] 141/98 H Blood Pressure Mean [Right Arm] 112 Blood Pressure Source [Right Arm] Automatic Cuff Blood Pressure Position [Right Arm] Sitting 02 Sat by Pulse Oximetry 97 99 96 Oxygen Delivery Method Nasal Cannula Oxygen Flow Rate (LPM) 2 07/30/25 11:30 07/30/25 12:00 07/30/25 12:16 Temperature Temperature Source Pulse Rate 82 80 80 Pulse Rate [Radial] Respiratory Rate Blood Pressure 136/85 144/101 H 158/66 H Blood Pressure [Right Arm] Blood Pressure Mean [Right Arm] Blood Pressure Source [Right Arm] Blood Pressure Position [Right Arm] 02 Sat by Pulse Oximetry 95 95 96 Oxygen Delivery Method Oxygen Flow Rate (LPM) 07/30/25 12:52 Temperature 98.4 F Temperature Source Pulse Rate 80 Pulse Rate [Radial] Respiratory Rate 20 Blood Pressure 158/66 H Blood Pressure [Right Arm] Blood Pressure Mean [Right Arm] Blood Pressure Source [Right Arm] Blood Pressure Position [Right Arm] 02 Sat by Pulse Oximetry Oxygen Delivery Method Nasal Cannula Oxygen Flow Rate (LPM) Lab Data Lab Results 07/30/25 11:01: WBC 9.2, RBC 4.63, Hgb 12.8, Hct 39.6, MCV 85.5, MCH 27.6, MCHC 32.3, RDW 13.3, Plt Count 191, MPV 11.4 H, Neut % (Auto) 63.9, Lymph % (Auto) 23.7, [place] % (Auto) 7.9, Eos % (Auto) 2.7, Baso % (Auto) 0.9, Neut # (Auto) 5.9, Lymph # (Auto) 2.2, [place] # (Auto) 0.7, Eos # (Auto) 0.3, Baso # (Auto) 0.1, Sodium 140, Potassium 3.7, Chloride 103, Carbon Dioxide 30, Anion Gap 10.7, BUN 11, Creatinine 0.60, Estimated Creat Clear 131, Estimated GFR 103, Est GFR ( Amer) 125, Glucose 183 H, Calcium 9.8, Magnesium 1.4 L, Total Bilirubin 0.5, AST 55 H, ALT 34, Alkaline Phosphatase 84, Total Protein 7.1, Albumin 4.4, Globulin 2.7, Albumin/Globulin Ratio 1.6, Lipase 78 07/30/25 11:01 07/30/25 11:01 Orders (Tests/Meds): ED MEDICATIONS Discontinued Medications Generic Name Dose Route Start Last Admin Trade Name Freq PRN Reason Stop Dose Admin Acetaminophen 1,000 mg 07/30/25 12:13 07/30/25 12:24 Acetaminophen 1,000mg/100ml Vial IV 07/30/25 12:14 1,000 mg ONCE ONE Administration Dexamethasone Sodium Phosphate 8 mg 07/30/25 10:49 07/30/25 11:20 Dexamethasone 4mg/Ml 1ml Vial IV 07/30/25 10:50 8 mg ONCE ONE Administration Gabapentin 400 mg 07/30/25 12:14 07/30/25 12:24 Gabapentin 100mg Capsule PO 07/30/25 12:15 400 mg ONCE ONE Administration Ketorolac Tromethamine 30 mg 07/30/25 10:49 07/30/25 11:20 Ketorolac 30mg/Ml Vial IV 07/30/25 10:50 30 mg ONCE ONE Administration Orphenadrine Citrate 60 mg 07/30/25 10:49 07/30/25 11:21 Orphenadrine Citrate 60mg/2ml Vial IV 07/30/25 10:50 60 mg ONCE ONE Administration ORDERS Category Date Time Status CT hip LT wo con Stat Cat Scan 07/30/25 10:[address] hip RT wo con Stat Cat Scan 07/30/25 10:[address] lumbar spine wo con Stat Cat Scan 07/30/25 10:48 Completed CBC [Complete Blood Count Auto Diff] Stat Lab 07/30/25 11:01 Completed Comprehensive Metabolic Panel Stat Lab 07/30/25 11:01 Completed Lipase Stat Lab 07/30/25 11:01 Completed Magnesium Stat Lab 07/30/25 11:01 Completed Medical Decision Narrative: patient is a 55-year-old female presenting to the emergency department for evaluation of bilateral low back pain and bilateral hip pain. Patient is hemodynamically stable and nontoxic-appearing upon arrival, afebrile. Differential diagnosis includes arthritis, bursitis, tendinitis, among others. Workup will be conducted with hematologic labs, specific imaging. Initial inventions include analgesics. Initial workup reviewed by me hematologic labs are nonactionable. Patient CT scans showed disc protrusion and some foraminal narrowing. I did discuss this with Dr. Houser who says patient needs to have an outpatient MRI. Patient does have appointment with Ortho on Sunday. She will keep this appointment and take meds as directed. Patient safe for discharge home. Critical Care Critical Care Time Critical Care Time: No
[2025-07-30 11:30] LABS: Alanine Aminotransferase 34 U/L (12-78); Albumin/Globulin Ratio 1.6 (1.1-1.8); Alkaline Phosphatase 84 U/L (38-126); Anion Gap 10.7 mEq/L (5-15); Aspartate Amino Transferase 55 U/L (14-36); Bilirubin,Total 0.5 mg/dl (0.2-1.3); Blood Urea Nitrogen 11 mg/dl (7-17); Carbon Dioxide 30 mmol/L (22.0-30.0); Creatinine Clearance Estimated 131 mL/min (50-200); Creatinine,Serum 0.60 mg/dl (0.52-1.04); Estimated Glomerular Filt Rate 103 ml/min (>60); GFR (African American) 125 ML/MIN (>60); Globulin 2.7 g/dL (1.3-3.2); Lipase 78 U/L (23-300); Total Protein,Serum 7.1 g/dl (6.3-8.2)
[2025-07-30 11:31] LABS: Calcium 9.8 mg/dl (8.4-10.2); Glucose 183 mg/dl (74-100); Magnesium 1.4 mg/dl (1.6-2.3)
[2025-07-30] MEDS: ACETAMINOPHEN 1,000MG/100ML VIAL 1000 MG IV (12:24)
[2025-07-30] MEDS: GABAPENTIN 100MG CAPSULE 400 MG PO (12:24)
== END 2025-07-30 13:05 | disposition home or self-care (01) ==
PROVIDERS: Nurse Practitioner; Emergency Provider Student in an Organized Health Care Education/Training Program; PCP Emergency Medicine
DX: M54.16 Radiculopathy, lumbar region (principal); M70.72 Other bursitis of hip, left hip
CPT/HCPCS: 72131; 73700; 80053; 83690; 83735; 85025; 96374; 96375; 99284; 99285; J0131; J1100; J1885; J2360

== ENCOUNTER 2025-08-30 09:25 | Emergency (ER) | payer MEDICARE, MEDICAID, SELFPAY ==
[2025-08-30] VITALS (8 sets, daily range): BP systolic 93–156; BP diastolic 58–131; PULSE 80–105; RESP 20–22; TEMP 36.7–36.8; O2SAT 87–98; BMI 34.0
--- OUTSIDE RECORDS SUMMARY | 2025-08-30 09:39 | XMS_ITS | Clinical Summary ---
Author Organization Healthcare Address [address] [place] [address] Care Team Providers Care Soot Blower Name Role Phone Arline Roberts Primary Care [...] of 2) 2019 UKY-Influenza Vaccine (#1) 2025 [id number] Vaccine Completed 07/25/2024, 10/25/2023, 05/11/2023, Additional history [...] to complete this topic Insurance Care Teams Soot Blower Relationship Specialty Start Date End Date Arline Roberts PA [address] [place] [address] [place] [id number] [facility] - General 04/08/21
--- OUTSIDE RECORDS SUMMARY | 2025-08-30 09:39 | XMS_ITS | Clinical Summary ---
Author Organization [facility] [employer] ([place], [place], [place], [place]) Address [address] [place] [address] Care Team Providers Care Deburring Machine Operator Name Role Phone Unavailable Primary Care Provider Unavailabl e Social History Tobacco Use Types Packs/Day Years Used Date Smoking Tobacco: Never Assessed Comments Unknown Sex and Gender Information Value Date Recorded Sex Assigned at Not on file Legal Sex Female 4:13 PM CDT Gender Identity Not on file Sexual Orientation Not on file Plan of Treatment Not on file Insurance [facility] MEDICARE O MEDICAID OF [place]
--- OUTSIDE RECORDS SUMMARY | 2025-08-30 09:40 | XMS_ITS | Clinical Summary ---
[facility] [address] [place] [address] Care Team Providers Care Roto Mixer Operator Name Role Phone Tutu Vance MD [...] monitor. 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 on file Not [...] Care Team (Late st Contact Info) Description 10/20/2025 9:30 AM EST Office Visit [facility] [address] [place] [address] Nancy Pfeiffer APRN [address] [place] [address] Health Maintenance Due Date Last Done Comments LIPID PANEL 1969 DIABETIC EYE EXAM 1979 DIABETIC FOOT EXAM 1979 URINE MICROALBUMIN-CREATININE RATIO (uACR) 1979 Hepatitis B (1 of 3 - 19+ 3-dose series) 1988 TDAP/TD VACCINES (1 - Tdap) 1988 MAMMOGRAM 2009 COLOGUARD 2014 COLON CANCER SCREENING 5 YEA R SIGMOIDOSCOPY [address] CT COLONOGRAPHY 2014 FECAL OCCULT BLOOD TEST 2014 FIT Testing (1 year) 2014 ZOSTER VACCINE (1 of 2) 2019 HEMOGLOBIN A1C 07/25/2021 HEPATITIS C SCREENING 07/25/2021 Annual Gynecologic Pelvic and Breast Exam 02/07/2024 02/05/2023, 11/07/2021 ANNUAL WELLNESS VISIT 05/27/2025 05/27/2024 INFLUENZA VACCINE 06/26/2025 COLONOSCOPY 02/25/2028 02/24/2018, 11/26/2017 COLORECTAL CANCER SCREENING 02/25/2028 Pneumococcal Vaccine 50+ Completed 07/25/2024 Insurance [employer] MEDICARE ADVANTAGE [facility] HMO Care Teams Roto Mixer Operator Relationship Specialty Start Date End Date Tutu Vance MD [address] [place] [address] PCP - General Emergency Medicine 05/14/23
--- OUTSIDE RECORDS SUMMARY | 2025-08-30 09:40 | XMS_ITS | Encounter Summary ---
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 on file Not on file documented as of this encounter Plan of Treatment Upcoming Encounters Date Type Department Care Team (Late st Contact Info) Description 10/20/2025 9:30 AM EST Office Visit [facility] CARDIOLOGY [address] [place] [address] Nancy Pfeiffer APRN [address] [place] [address] documented as of this encounter Visit Diagnoses Diagnosis Hormone replacement therapy (HRT) documented in this encounter Care Teams Ore Trimmer Relationship Specialty Start Date End Date Tutu Vance MD [address] [place] [address] PCP - General Emergency Medicine 05/14/23 documented as of this encounter
--- OUTSIDE RECORDS SUMMARY | 2025-08-30 09:40 | XMS_ITS | Encounter Summary ---
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 on file Not on file documented as of this encounter Miscellaneous Notes * Telephone Encounter - Mary Toribio MA - 04/22/2024 3:21 PM EDT Patient needs to schedule annual exam documented in this encounter Plan of Treatment Upcoming Encounters Date Type Department Care Team (Late st Contact Info) Description 10/20/2025 9:30 AM EST Office Visit [facility] CARDIOLOGY [address] [place] [address] Nancy Pfeiffer APRN [address] [place] [address] documented as of this encounter Visit Diagnoses Diagnosis Hormone replacement therapy (HRT) documented in this encounter Care Teams Paraffin Machine Operator Relationship Specialty Start Date End Date Tutu Vance MD [address] [place] [address] PCP - General Emergency Medicine 05/14/23 documented as of this encounter
--- OUTSIDE RECORDS SUMMARY | 2025-08-30 09:40 | XMS_ITS | Clinical Summary ---
Author Organization [facility] Address [address] [place] [address] Care Team Providers Care Termite Control Representative Name Role Phone None, Physician Primary Care [...] 1990 Lung Cancer Screening Risk Assessment 2019 RSV 50+ and (1 - Risk 50-74 years 1-dose series) 2019 Shingles (Shingrix) (1 of 2) 2019 [...] 136 - 145 mmol/L 12/21/2024 6:13 AM [facility] ([id number]) Comment:Excess protein and/o r lipids can falsely decrease sodium levels (pseudo hyponatremia). Potassium 4.3 3.5 - 5.1 mmol/L 12/21/2024 6:13 AM [facility] ([id number]) Comment:Falsely elevated pot assium can occur in patients with high WBC or platelet counts. Chloride 105 98 - 107 mmol/L 12/21/2024 6:13 AM [facility] ([id number]) Comment:Falsely elevated chl oride levels can be seen in patients taking bromide containing medications. Carbon Dioxide 26 22 - 29 mmol/L 12/21/2024 6:13 AM [facility] ([id number]) Anion Gap 9 5 - 13 mmol/L 12/21/2024 6:13 AM [facility] ([id number]) Comment:Calculation: Na - (C l + CO2) Glucose, Random 75 71 - 99 mg/dL 12/21/2024 6:13 AM [facility] ([id number]) Blood Urea Nitrogen (BUN) 9(L) 10 - 20 mg/dL 12/21/2024 6:13 AM [facility] ([id number]) Creatinine, Blood 0.82 0.55 - 1.02 mg/dL 12/21/2024 6:13 AM [facility] ([id number]) BUN/Creatinine Ratio 11.0 RATIO 12/21/2024 6:13 AM [facility] ([id number]) Estimated GFR (Cr) 84 >60 mL/min/1.7 3m2 12/21/2024 6:13 AM [facility] ([id number]) Comment:eGFR calculated base d on IDMS traceable, enzymatic creatinine method using the CKD-EPI 2020 equation. Calcium 9.1 8.4 - 10.2 mg/dL 12/21/2024 6:13 AM [facility] ([id number]) Blood VENOUS BLOOD SPECIMEN / Unknown Venipuncture / Unknown 12/21/2024 5:28 AM EST 12/21/2024 5:44 AM EST us Clauida Vazquez MD LAB BLOOD ORDERABLES Final Resul t [facility] ([id number]) [address] [place] [address] from Last 3 Months or Most Recently Relevant to Health Maintenance Insurance [employer] MEDICARE REPLACEMENT Member Subscriber Plan / Payer (Ef fective 2024-Present) Name:Coretta Moctezuma Relation to Subscriber:Self Name:Coretta Moctezuma Payer ID:[id number] (NAIC) Type:Medicare Address: [address] [id number] MEDICAID [place] Member Subscriber Plan / Payer (Ef fective 2024-Present) Name:Coretta Moctezuma Relation to Subscriber:Self Name:Coretta Moctezuma Payer ID:[id number] Group ID:Not on file Type:Medicaid Address: [address] [facility] [place] [address] Advance Directives * Full Code (Latest Code Status on File) Date Activated Date Inactivated Comments 12/18/2024 9:41 AM 12/22/2024 5:51 PM Care Teams Termite Control Representative Relationship Specialty Start Date End Date None, Physician PCP - General 12/18/24
--- OUTSIDE RECORDS SUMMARY | 2025-08-30 09:40 | XMS_ITS | Encounter Summary ---
[facility] Address [address] [place] [address] Care Team Providers Care Senior Clinical Data Manager Name Role Phone Tutu Vance MD Primary Care Provider [phone] Encounter Details Date Type Department Care Team (Late st Contact Info) Description 02/26/2025 Results Follow-Up [facility] OBGYN [address] [place] [address] Caroline Herrera, DIESEL CRANE OPERATOR [address] [facility] [address] [place] [phone] Social History Tobacco Use Types Packs/Day Years [...] 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 Not on file documented as of this encounter Plan of Treatment Upcoming Encounters Date Type Department Care Team (Late st Contact Info) Description 10/20/2025 9:30 AM EST Office Visit [facility] CARDIOLOGY [address] [place] [address] Nancy Pfeiffer APRN [address] [place] [address] documented as of this encounter Visit Diagnoses Not on filedocumented in this encounter Care Teams Senior Clinical Data Manager Relationship Specialty Start Date End Date Tutu Vance MD [address] [place] [address] PCP - General Emergency Medicine 05/14/23 documented as of this encounter
--- OUTSIDE RECORDS SUMMARY | 2025-08-30 09:40 | XMS_ITS | Referral Summary ---
Author Organization [employer] ([place], [place], [place], [place]) Address [address] [place] [address] Care Team Providers Care Camera Supervisor Name Role Phone Unavailable Primary Care Provider Unavailabl e Social History Tobacco Use Types Packs/Day Years Used Date Smoking Tobacco: Never Assessed Comments Unknown Sex and Gender Information Value Date Recorded Sex Assigned at Not on file Legal Sex Female 4:13 PM CDT Gender Identity Not on file Sexual Orientation Not on file Plan of Treatment Not on file Insurance [facility] MEDICARE O MEDICAID OF [place]
--- NOTE | 2025-08-30 10:09 | XR_ITS ---
PROCEDURE INFORMATION: Exam: XR Chest Exam date and time: 08/30/2025 10:12 AM Age: 55 years old Clinical indication: Cough and shortness of breath and other: Cough, production of phlegm TECHNIQUE: Imaging protocol: Radiologic exam of the chest. Views: 2 views. COMPARISON: CR XR CHEST 2V 05/17/2025 9:55 AM FINDINGS: Lungs: Mild left basilar opacity may represent atelectasis or infiltrate. Pleural spaces: Pleural spaces are unremarkable. No pneumothorax. No pleural effusion. Heart/Mediastinum: Unremarkable. No cardiomegaly. Bones/joints: Unremarkable. IMPRESSION: Mild left basilar atelectasis versus infiltrate.
[2025-08-30] MEDS: IPRATROPIUM/ALBUTEROL 3 ML NEB 9 ML IH (10:32)
[2025-08-30 10:43] LABS: Coronavirus 19, PCR Not Detected (NotDetected); Influenza A, PCR Not Detected (NotDetected); Influenza B, PCR Not Detected (NotDetected)
--- NOTE | 2025-08-30 11:24 | HMH.EDGENADL ---
Discharge Plan Disposition Patient Disposition: Home, Self-Care Condition: Good Prescriptions Prescriptions: New amoxicillin-pot clavulanate 875-125 mg tablet 1 tab PO BID 7 Days Qty: 14 0RF doxycycline hyclate 100 mg capsule 100 mg PO BID 7 Days Qty: 14 0RF prednisone 20 mg tablet 40 mg PO DAILY 5 Days Qty: 10 0RF No Action hydroxyzine HCl 50 mg tablet 50 mg PO TID metformin 500 mg tablet 500 mg PO DAILY ondansetron HCl 8 mg tablet 8 mg PO DAILY PRN (Reason: Stomach Upset) pravastatin 40 mg tablet 40 mg PO DAILY famotidine 40 mg tablet 40 mg PO DAILY diltiazem HCl 30 mg tablet 30 mg PO ONCE albuterol sulfate [ProAir HFA] 90 mcg/actuation HFA aerosol inhaler 1 puff inhalation DIRECTED PRN (Reason: BREATHING) amantadine HCl 100 mg tablet 100 mg PO DIRECTED fluticasone propionate 50 mcg/actuation spray,suspension 50 mcg intranasal DIRECTED lidocaine-prilocaine 2.5-2.5 % cream 1 applic TP .COMPLEX Rx Instructions: 1 applic topical 5XDAY; buprenorphine-naloxone 2-0.5 mg film 1 film SL DAILY aspirin 81 mg tablet,delayed release (DR/EC) 81 mg PO DAILY cetirizine 10 mg tablet 10 mg PO DAILY Trelegy Ellipta 200-62.5-25 mcg blister with device 1 inh inhalation DAILY Patient Comments: INHALE 1 PUFF BY MOUTH EVERY DAY urea 40 % cream 1 applic topical BID 90 Days Qty: 60 3RF trazodone 100 mg tablet 200 mg PO HS Patient Comments: TAKE 2 TABLETS BY MOUTH AT BEDTIME melatonin 5 mg capsule 5 mg PO HS Patient Comments: TAKE 1 CAPSULE BY MOUTH EVERY NIGHT AT BEDTIME Ozempic 2 mg/dose (8 mg/3 mL) pen injector 2 mg SQ WEEKLY Patient Comments: INJECT 2MG SUBCUTANEOUSLY ONCE WEEKLY pregabalin [Lyrica] 150 mg capsule 150 mg PO TID Qty: 90 2RF buspirone 10 MG tablet 10 mg PO BID montelukast 10 MG tablet 10 mg PO PM estradiol 0.5 MG tablet 0.5 mg PO DAILY paroxetine HCl 40 MG tablet 40 mg PO DAILY pantoprazole 40 mg tablet,delayed release (DR/EC) 40 mg PO DAILY prednisone 20 mg tablet 20 mg PO BID Qty: 10 0RF lidocaine 5 % adhesive patch,medicated 1 patch topical DAILY Qty: 30 0RF Rx Instructions: leave on most painful area for up to 12 hrs baclofen 10 mg tablet 10 mg PO TID Qty: 90 2RF ketorolac 10 mg tablet 10 mg PO Q8H PRN (Reason: pain) 5 Days Qty: 20 0RF Referrals Follow up/Referrals: Tutu Vance MD [Primary Care Provider, Medical] - See instructions Activity Restrictions/Add. Instructions Additional Instructions/Restrictions: Please take Augmentin twice daily for the next 7 days. Please also take doxycycline 100 mg twice daily for the next 7 days. You will also take prednisone 40 mg for the next 5 days. For the itching you can take 10 mg of Zyrtec daily. This can be picked up [id number]. If you have any new or worsening symptoms please return to the emergency department immediately please I do want you to see your pain day care provider in the morning without the itching associated with your morphine pump. Clinical Impressions Clinical Impression: Itching Pneumonia Qualifiers: Pneumonia type: due to unspecified organism Laterality: bilateral Lung location: unspecified part of lung Qualified Code(s): J18.9 - Pneumonia, unspecified organism Instructions Patient Instructions: Pneumonia in Adults Print Language Print Language: Senegalese Discharge ED Provider: Lauri Child Adult HPI General Chief complaint: Skin/Abscess/Foreign Body Stated complaint: SOA, itching Time Seen by Provider: 08/30/25 09:55 Mode of Arrival: Wheelchair Source of Information: Patient Description of Symptoms (Recalled from ER Triage Doc. by RN): Patient reports having her pain pump filled with morphine on Sunday and now she has begun to scratch and itch her skin. Also states she thinks that she has pneumonia because she has had increased shortness of breath and cough. History of Present Illness HPI narrative: This is a 55-year-old female patient, with past medical history of hypertension, hyperlipidemia, COPD on 2 L at baseline, and chronic back pain with a pain pump in place, who is presenting to the emergency department today for multiple complaints. The patient's initial complaint is that she had her morphine pain pump adjusted yesterday at the pain management clinic. She states that since this adjustment she has been having itching. She took Benadryl for this yesterday but itching has persisted. She has not experienced any alteration in mental status, somnolence, or abnormal respirations. Her secondary complaint is that she has had a cough that is productive of phlegm over the last couple of days and she feels as if she is wheezing a bit more than usual. She has not noted any increased work of breathing or increasing oxygen requirement at home. She specifically denies chest pain. Related Data Home Medications ?Medication ?Instructions ?Recorded ?Confirmed buspirone 10 mg tablet 10 mg PO BID mood 05/12/21 08/28/25 estradiol 0.5 mg tablet 0.5 mg PO DAILY HRT 05/12/21 08/28/25 montelukast 10 mg tablet 10 mg PO PM allergies 05/12/21 08/28/25 paroxetine HCl 40 mg tablet 40 mg PO DAILY mood 05/12/21 08/28/25 pantoprazole 40 mg tablet,delayed 40 mg PO DAILY Reflux/Acid reflux 07/07/21 08/28/25 release lidocaine-prilocaine 2.5 %-2.5 % 1 applic topical .COMPLEX Pain 09/08/21 08/28/25 topical cream hydroxyzine HCl 50 mg tablet 50 mg PO TID Pain 11/29/21 08/28/25 buprenorphine 2 mg-naloxone 0.5 mg 1 film sublingual DAILY Pain 01/23/22 08/28/25 sublingual film aspirin 81 mg tablet,delayed 81 mg PO DAILY Blood thinner 03/23/22 08/28/25 release metformin 500 mg tablet 500 mg PO DAILY Diabetes 08/03/22 08/28/25 ondansetron HCl 8 mg tablet 8 mg PO DAILY PRN Stomach Upset 08/03/22 08/28/25 famotidine 40 mg tablet 40 mg PO DAILY STOMACH 08/21/22 08/28/25 pravastatin 40 mg tablet 40 mg PO DAILY Cholesterol 08/21/22 08/28/25 cetirizine 10 mg tablet 10 mg PO DAILY ALLERGIES 11/13/22 08/28/25 albuterol sulfate 90 mcg/actuation 1 puff inhalation DIRECTED PRN 12/05/22 08/28/25 aerosol inhaler (ProAir HFA) BREATHING diltiazem HCl 30 mg tablet 30 mg PO ONCE HEART 12/05/22 08/28/25 amantadine HCl 100 mg tablet 100 mg PO DIRECTED . 10/15/23 08/28/25 fluticasone propionate 50 50 mcg intranasal DIRECTED 10/15/23 08/28/25 mcg/actuation nasal Breathing Problems spray,suspension fluticasone fur. 200 mcg-umeclid 1 inh inhalation DAILY 01/07/24 08/28/25 62.5 mcg-vilant 25 mcg inhalat.powder (Trelegy Ellipta) melatonin 5 mg capsule 5 mg PO HS 06/16/24 08/28/25 semaglutide 2 mg/dose (8 mg/3 mL) 2 mg SQ WEEKLY 06/16/24 08/28/25 subcutaneous pen injector (Ozempic) trazodone 100 mg tablet 200 mg PO HS 06/16/24 08/28/25 Previous Rx's ?Medication ?Instructions ?Recorded urea 40 % topical cream 1 applic topical BID 3 months #60 01/07/24 applic prednisone 20 mg tablet 20 mg PO BID #10 tabs 11/28/24 lidocaine 5 % topical patch 1 patch topical DAILY #30 ea 01/05/25 baclofen 10 mg tablet 10 mg PO TID #90 tabs 06/05/25 ketorolac 10 mg tablet 10 mg PO Q8H PRN pain 5 days #20 07/30/25 tabs pregabalin 150 mg capsule (Lyrica) 150 mg PO TID #90 caps 08/28/25 amoxicillin 875 mg-potassium 1 tab PO BID 7 days #14 tabs 08/30/25 clavulanate 125 mg tablet doxycycline hyclate 100 mg capsule 100 mg PO BID 7 days #14 caps 08/30/25 prednisone 20 mg tablet 40 mg (2 x 20 mg) PO DAILY 5 days 08/30/25 #10 tabs Allergies Allergy/AdvReac Type Severity Reaction Status Date / Time Sulfa (Sulfonamide Allergy Rash Verified 08/28/25 13:02 Antibiotics) [facility] Disclaimer: The information contained in this section may have been updated after the patient was seen, as this information can be updated by other users. 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 current occupational exposures/hazards: No caffeine: Yes Have you lived/traveled outside US in past 30 days?: No Contact w/someone who lives/traveled outside US past 30 days?: No Exposure to someone with infectious disease in past 14 days?: No Do you have a fever (greater than 100.4 F or 38 C)?: No Have you tested positive for COVID-19?: No Exposed to someone with COVID-19 in past 14 days?: No Do you have a sore throat?: No Do you have a cough?: No Do you have any weakness?: No Do you have any diarrhea?: No Are you experiencing any unusual bleeding?: No Do you have any muscle aches/pain?: No Do you have any abdominal pain?: No Are you experiencing loss of taste or smell?: No Other Medical History Have you received the Flu Vaccine for this season: No Have you received the Pneumonia Vaccine: No ROS Obtained: Yes Systems reviewed as appropriate & no additional complaints except as documented Physical Exam General General appearance: other (See MDM) Respiratory Respiratory exam: Present other (See MDM) Cardiovascular Cardiovascular exam: Present other (See MDM) Neurological Exam Neurological exam: Present other (See MDM) Medical Decision Making Medical Records Medical records reviewed: Yes I reviewed the patient's medical records. Screening: Per USPSTF and CDC recommendations, given the prevalence of disease in our region, it is our hospital?s policy to screen for HIV and viral Hepatitis for all patients aged 18 and over and those with ongoing risk factors. Bruno Inquiry Pt receiving controlled substance: No Bruno was queried for this patient: No Vital Signs: 08/30/25 09:37 08/30/25 09:39 08/30/25 10:01 Temperature 98.1 F Temperature Source Oral Pulse Rate 105 H 101 H Pulse Rate [Radial] 105 H Respiratory Rate 22 Blood Pressure 156/131 H 109/58 L Blood Pressure [Right Arm] 156/131 H Blood Pressure Mean [Right Arm] 139 Blood Pressure Source [Right Arm] Automatic Cuff Blood Pressure Position [Right Arm] Sitting 02 Sat by Pulse Oximetry 91 L 87 L 92 L Oxygen Delivery Method Room Air Nasal Cannula Nasal Cannula Oxygen Flow Rate (LPM) 4 3 08/30/25 10:30 08/30/25 10:40 08/30/25 11:01 Temperature Temperature Source Pulse Rate 99 H 89 89 Pulse Rate [Radial] Respiratory Rate Blood Pressure 93/58 L 107/80 L Blood Pressure [Right Arm] Blood Pressure Mean [Right Arm] Blood Pressure Source [Right Arm] Blood Pressure Position [Right Arm] 02 Sat by Pulse Oximetry 94 L 94 L 95 Oxygen Delivery Method Nasal Cannula Nasal Cannula Nasal Cannula Oxygen Flow Rate (LPM) 3 3 3 08/30/25 11:30 Temperature Temperature Source Pulse Rate 84 Pulse Rate [Radial] Respiratory Rate Blood Pressure 102/82 L Blood Pressure [Right Arm] Blood Pressure Mean [Right Arm] Blood Pressure Source [Right Arm] Blood Pressure Position [Right Arm] 02 Sat by Pulse Oximetry 92 L Oxygen Delivery Method Nasal Cannula Oxygen Flow Rate (LPM) 3 Orders (Tests/Meds): ED MEDICATIONS Discontinued Medications Generic Name Dose Route Start Last Admin Trade Name Freq PRN Reason Stop Dose Admin Albuterol/Ipratropium 9 ml 08/30/25 10:17 08/30/25 10:32 Ipratropium/Albuterol 3 Ml Neb IH 08/30/25 10:18 9 ml ONCE ONE Administration Loratadine 10 mg 08/30/25 11:28 08/30/25 12:08 Loratadine 10mg Tablet PO 08/30/25 11:29 10 mg ONCE ONE Administration Prednisone 60 mg 08/30/25 10:17 08/30/25 10:32 Prednisone 20mg Tab PO 08/30/25 10:18 60 mg ONCE ONE Administration ORDERS Category Date Time Status CXR 2 view (NOT portable) [XR chest 2V] Stat Exams 08/30/25 10:09 Completed Mini Respiratory Panel Stat Lab 08/30/25 10:40 Received Medical Decision Narrative: In summary, this is a 55-year-old female patient who is presenting to the emergency department today for evaluation of multiple complaints including itching in the setting of having her morphine pain pump adjusted yesterday as well as cough that is productive of phlegm and some wheezing over the last couple of days. The patient's comorbidities include hypertension, hyperlipidemia, COPD on 2 L at home, and chronic back pain with a morphine pain pump in place. On initial evaluation of the patient she was resting comfortably in no acute distress and was nontoxic in appearance. She is hemodynamically stable and saturating well on her baseline oxygen requirement. She is grossly neurologically intact. She displays no evidence of somnolence. Pupils are equal round and reactive to light and are 2+. On auscultation of her chest she does have wheezes in her bilateral lung tomlin. Heart sounds are normal. No abdominal tenderness palpation. Differential diagnosis includes morphine associated itching, low concern for morphine overdose, among others. Additionally, the patient is likely experiencing a viral syndrome that is provoking a COPD exacerbation. Workup was initiated with a chest x-ray as well as a viral respiratory swab. We have treated her with 60 mg of prednisone as well as 3 DuoNebs. Chest x-ray was personally interpreted by me and demonstrates a patchy infiltrate in the left lower lobe of the lung. Official radiology read is in agreement states that this could be atelectasis versus an infectious infiltrate. Given that the patient is experiencing cough and production of phlegm I feel that she is most likely experiencing community-acquired pneumonia. After treatment with prednisone and DuoNebs the patient is resting comfortably with no increased work of breathing. She is saturating well on 2 L. We have also administered cetirizine for itching. Her symptoms are controlled. I have recommended that she take amoxicillin and doxycycline for the next 7 days as well as prednisone for the next 5 days. I have given her strict return precautions in the event that she develops worsening shortness of breath or increased work of breathing. I have also requested that she follow-up with her oil painter in the morning for evaluation of itching that may be related to her morphine pain pump. At this time all questions have been answered and all parties are agreeable with the decision to discharge home Critical Care Critical Care Time Critical Care Time: No
[2025-08-30] MEDS: LORATADINE 10MG TABLET 10 MG PO (12:08)
== END 2025-08-30 12:50 | disposition home or self-care (01) ==
PROVIDERS: Emergency Provider Student in an Organized Health Care Education/Training Program; PCP Emergency Medicine
DX: J18.9 Pneumonia, unspecified organism (principal); L29.9 Pruritus, unspecified; F17.210 Nicotine dependence, cigarettes, uncomplicated; J44.9 Chronic obstructive pulmonary disease, unspecified; I10 Essential (primary) hypertension; E78.5 Hyperlipidemia, unspecified; G89.4 Chronic pain syndrome; Z97.8 Presence of other specified devices
CPT/HCPCS: 71046; 87631; 99284

== ENCOUNTER 2025-09-01 19:08 | Inpatient (IN) | payer MEDICARE, MEDICAID, SELFPAY ==
[2025-09-01] VITALS (8 sets, daily range): BP systolic 86–139; BP diastolic 55–79; PULSE 67–120; RESP 12–30; TEMP 37.1–38.3; O2SAT 94–98; BMI 31.8; BMI 33.3
--- NOTE | 2025-09-01 19:13 | CT_ITS ---
PROCEDURE INFORMATION: Exam: CT Head Without Contrast Exam date and time: 09/01/2025 8:55 PM Age: 55 years old Clinical indication: Altered mental status/memory loss; Additional info: AMS TECHNIQUE: Imaging protocol: Computed tomography of the head without contrast. Radiation optimization: All CT scans at this facility use at least one of these dose optimization techniques: automated exposure control; mA and/or kV adjustment per patient size (includes targeted exams where dose is matched to clinical indication); or iterative reconstruction. COMPARISON: CT HEAD/BRAIN WO CON 01/05/2022 5:59 PM FINDINGS: Brain: No acute intracranial hemorrhage, midline shift, or mass effect. Cerebral ventricles: No ventriculomegaly. Paranasal sinuses: Moderate left sphenoid sinus mucosal thickening. Mastoid air cells: Visualized mastoid air cells are well aerated. Bones: Unremarkable. No acute fracture. Soft tissues: Unremarkable. IMPRESSION: No acute intracranial findings.
--- NOTE | 2025-09-01 19:13 | XR_ITS ---
PROCEDURE INFORMATION: Exam: XR Chest Exam date and time: 09/01/2025 8:38 PM Age: 55 years old Clinical indication: Other: Sepsis; Additional info: Sepsis, recent pneumonia TECHNIQUE: Imaging protocol: Radiologic exam of the chest. Views: 1 view. COMPARISON: CR Chest 08/30/2025 10:12 AM FINDINGS: Lungs: Left basilar opacities partially silhouette the diaphragm are favored to represent combination of atelectasis/pleural effusion/consolidation. Pleural spaces: See Lungs finding. Heart/Mediastinum: Unremarkable. No cardiomegaly. Bones/joints: Unremarkable. IMPRESSION: Left basilar opacities partially silhouette the diaphragm are favored to represent combination of atelectasis/pleural effusion/consolidation.
--- NOTE | 2025-09-01 19:15 | ECG_ITS ---
APPROVED REPORT Exam: Resting ECG HR:118 bpm ECG Measurements Heart Rate 118 AXES FL 124 P 60 QRSd 78 QRS 50 QT 342 T 46 QTc 412 Conclusion SINUS TACHYCARDIA WITH FREQUENT VENTRICULAR PREMATURE COMPLEXES LOW QRS VOLTAGE IN PRECORDIAL LEADS [QRS DEFLECTION < 1.0 mV IN CHEST LEADS] ABNORMAL RHYTHM ECG UNCONFIRMED REPORT Electronically signed by : GARLAND FELDMAN, 09/01/2025 23:48:45
--- OUTSIDE RECORDS SUMMARY | 2025-09-01 19:16 | XMS_ITS | Encounter Summary ---
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 Not on file Not on file documented as of this encounter Miscellaneous Notes * Telephone Encounter - Mary Toribio MA - 04/22/2024 3:21 PM EDT Patient needs to schedule annual exam documented in this encounter Plan of Treatment Upcoming Encounters Date Type Department Care Team (Late st Contact Info) Description 10/20/2025 9:30 AM EST Office Visit [facility] CARDIOLOGY [address] [place] [address] Nancy Pfeiffer APRN [address] [place] [address] documented as of this encounter Visit Diagnoses Diagnosis Hormone replacement therapy (HRT) documented in this encounter Care Teams Residential Monitor Relationship Specialty Start Date End Date Tutu Vance MD [address] [place] [address] PCP - General Emergency Medicine 05/14/23 documented as of this encounter
--- OUTSIDE RECORDS SUMMARY | 2025-09-01 19:16 | XMS_ITS | Encounter Summary ---
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 file Not on file documented as of this encounter Plan of Treatment Upcoming Encounters Date Type Department Care Team (Late st Contact Info) Description 10/20/2025 9:30 AM EST Office Visit [facility] CARDIOLOG[facility] [address] [place] [address] Nancy Pfeiffer APRN [address] [place] [address] documented as of this encounter Visit Diagnoses Diagnosis Hormone replacement therapy (HRT) documented in this encounter Care Teams Load Tallier Relationship Specialty Start Date End Date Tutu Vance MD [address] [place] [address] PCP - General Emergency Medicine 05/14/23 documented as of this encounter
--- OUTSIDE RECORDS SUMMARY | 2025-09-01 19:16 | XMS_ITS | Clinical Summary ---
[facility] Address [address] [place] [address] Care Team Providers Care Parts Chaser Name Role Phone Tutu Vance MD Primary [...] Industry Job Start Date Job End Date [employer] Not on file Not on file Not [...] Description 10/20/2025 9:30 AM EST Office Visit [facility] CARDIOLOGY [address] [place] [address] Nancy Pfeiffer APRN [address] [place] [address] Health Maintenance Due Date Last [...] 50+ Completed 07/25/2024 Insurance [employer] MEDICARE ADVANTAGE [facility] HMO Care Teams Parts Chaser Relationship Specialty Start Date End Date Tutu Vance MD [address] [place] [address] PCP - General Emergency Medicine 05/14/23
--- OUTSIDE RECORDS SUMMARY | 2025-09-01 19:16 | XMS_ITS | Referral Summary ---
Author Organization [employer] ([place], [place], [place], [place]) Address [address] [place] [address] Care Team Providers Care Sports Media Name Role Phone Unavailable Primary Care Provider Unavailabl e Social History Tobacco Use Types Packs/Day Years Used Date Smoking Tobacco: Never Assessed Comments Unknown Sex and Gender Information Value Date Recorded Sex Assigned at Not on file Legal Sex Female 4:13 PM CDT Gender Identity Not on file Sexual Orientation Not on file Plan of Treatment Not on file Insurance [facility] MEDICARE O MEDICAID OF [place]
--- OUTSIDE RECORDS SUMMARY | 2025-09-01 19:16 | XMS_ITS | Clinical Summary ---
Author Organization [employer] ([place], [place], [place], [place]) Address [address] [place] [address] Care Team Providers Care Firer Locomotive Name Role Phone Unavailable Primary Care Provider Unavailabl e Social History Tobacco Use Types Packs/Day Years Used Date Smoking Tobacco: Never Assessed Comments Unknown Sex and Gender Information Value Date Recorded Sex Assigned at Not on file Legal Sex Female 4:13 PM CDT Gender Identity Not on file Sexual Orientation Not on file Plan of Treatment Not on file Insurance [facility] MEDICARE O MEDICAID OF [place]
--- OUTSIDE RECORDS SUMMARY | 2025-09-01 19:16 | XMS_ITS | Clinical Summary ---
Author Organization [facility] Address [address] [place] [address] Care Team Providers Care Die Designer Name Role Phone None, Physician Primary Care [...] 136 - 145 mmol/L 12/21/2024 6:13 AM [facility] ([id number]) Comment:Excess protein and/o r lipids can falsely decrease sodium levels (pseudo hyponatremia). Potassium 4.3 3.5 - 5.1 mmol/L 12/21/2024 6:13 AM [facility] ([id number]) Comment:Falsely elevated pot assium can occur in patients with high WBC or platelet counts. Chloride 105 98 - 107 mmol/L 12/21/2024 6:13 AM [facility] ([id number]) Comment:Falsely elevated chl oride levels can be seen in patients taking bromide containing medications. Carbon Dioxide 26 22 - 29 mmol/L 12/21/2024 6:13 AM [facility] ([id number]) Anion Gap 9 5 - 13 mmol/L 12/21/2024 6:13 AM [facility] ([id number]) Comment:Calculation: Na - (C l + CO2) Glucose, Random 75 71 - 99 mg/dL 12/21/2024 6:13 AM [facility] ([id number]) Blood Urea Nitrogen (BUN) 9(L) 10 - 20 mg/dL 12/21/2024 6:13 AM [facility] ([id number]) Creatinine, Blood 0.82 0.55 - 1.02 mg/dL 12/21/2024 6:13 AM [facility] ([id number]) BUN/Creatinine Ratio 11.0 RATIO 12/21/2024 6:13 AM [facility] ([id number]) Estimated GFR (Cr) 84 >60 mL/min/1.7 3m2 12/21/2024 6:13 AM [facility] ([id number]) Comment:eGFR calculated base d on IDMS traceable, enzymatic creatinine method using the CKD-EPI 2020 equation. Calcium 9.1 8.4 - 10.2 mg/dL 12/21/2024 6:13 AM [facility] ([id number]) Blood VENOUS BLOOD SPECIMEN / Unknown Venipuncture / Unknown 12/21/2024 5:28 AM EST 12/21/2024 5:44 AM EST us Claudia Vazquez MD LAB BLOOD ORDERABLES Final Resul t [facility] ([id number]) [address] [place] [address] from Last 3 Months or Most Recently Relevant to Health Maintenance Insurance [employer] MEDICARE REPLACEMENT Member Subscriber Plan / Payer (Ef fective 2024-Present) Name:Coretta Moctezuma Relation to Subscriber:Self Name:Coretta Moctezuma Payer ID:[id number] (NAIC) Type:Medicare Address: [address] [id number] MEDICAID [place] Member Subscriber Plan / Payer (Ef fective 2024-Present) Name:Coretta Moctezuma Relation to Subscriber:Self Name:Coretta Moctezuma Payer ID:[id number] Group ID:Not on file Type:Medicaid Address: [address] [facility] [place] [address] Advance Directives * Full Code (Latest Code Status on File) Date Activated Date Inactivated Comments 12/18/2024 9:41 AM 12/22/2024 5:51 PM Care Teams Die Designer Relationship Specialty Start Date End Date None, Physician PCP - General 12/18/24
--- OUTSIDE RECORDS SUMMARY | 2025-09-01 19:16 | XMS_ITS | Clinical Summary ---
Author Organization [facility] Address [address] [place] [address] Care Team Providers Care Pick And Shovel Worker Name Role Phone Arline Roberts Primary Care [...] of 2) 2019 UKY-Influenza Vaccine (#1) 2025 [id number] Vaccine Completed 07/25/2024, 10/25/2023, 05/11/2023, Additional history [...] to complete this topic Insurance Care Teams Pick And Shovel Worker Relationship Specialty Start Date End Date Arline Roberts PA [address] [place] [address] [place] [phone] [facility] - General 04/08/21
--- OUTSIDE RECORDS SUMMARY | 2025-09-01 19:16 | XMS_ITS | Encounter Summary ---
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 file Not on file Not on file documented as of this encounter Plan of Treatment Upcoming Encounters Date Type Department Care Team (Late st Contact Info) Description 10/20/2025 9:30 AM EST Office Visit [facility] CARDIOLOGY [address] [place] [address] Nancy Pfeiffer APRN [address] [place] [address] documented as of this encounter Visit Diagnoses Not on filedocumented in this encounter Care Teams Truckload Owner Operator Relationship Specialty Start Date End Date Tutu Vance MD [address] [place] [address] PCP - General Emergency Medicine 05/14/23 documented as of this encounter
--- NOTE | 2025-09-01 19:19 | HMH.EDGENADL ---
Discharge Plan Disposition Patient Disposition: Admitted Clinical Impressions Clinical Impression: Sepsis, Multifocal pneumonia Discharge ED Provider: Keenan Wade General Adult HPI General Chief complaint: Altered Mental Status Stated complaint: altered mental status Time Seen by Provider: 09/01/25 19:12 History of Present Illness HPI narrative: Coretta Moctezuma is a 55-year-old female with a history of COPD on 3 L nasal cannula at home, obesity, type 2 diabetes, obstructive sleep apnea, who presents to the emergency department via EMS for concern for shortness of breath, altered mental status, fever. Per EMS, patient was diagnosed with pneumonia on Sunday. Per EMS, patient became more confused yesterday and into today. They state that when they arrived, her oxygen saturation was in the 70s but she was not on any O2 at that time. EMS gave her a DuoNeb treatment and put her on 4 L nasal cannula with improvement in her oxygen. She was initially hypotensive with systolics in the 80s and received 250 mL of crystalloid fluids with improvement in her blood pressure and route. Fingerstick blood glucose was within normal range. They state the patient was confused and route. Related Data Home Medications ?Medication ?Instructions ?Recorded ?Confirmed buspirone 10 mg tablet 10 mg PO BID mood 05/12/21 08/28/25 estradiol 0.5 mg tablet 0.5 mg PO DAILY HRT 05/12/21 08/28/25 montelukast 10 mg tablet 10 mg PO PM allergies 05/12/21 08/28/25 paroxetine HCl 40 mg tablet 40 mg PO DAILY mood 05/12/21 08/28/25 pantoprazole 40 mg tablet,delayed 40 mg PO DAILY Reflux/Acid reflux 07/07/21 08/28/25 release lidocaine-prilocaine 2.5 %-2.5 % 1 applic topical .COMPLEX Pain 09/08/21 08/28/25 topical cream hydroxyzine HCl 50 mg tablet 50 mg PO TID Pain 11/29/21 08/28/25 buprenorphine 2 mg-naloxone 0.5 mg 1 film sublingual DAILY Pain 01/23/22 08/28/25 sublingual film aspirin 81 mg tablet,delayed 81 mg PO DAILY Blood thinner 03/23/22 08/28/25 release metformin 500 mg tablet 500 mg PO DAILY Diabetes 08/03/22 08/28/25 ondansetron HCl 8 mg tablet 8 mg PO DAILY PRN Stomach Upset 08/03/22 08/28/25 famotidine 40 mg tablet 40 mg PO DAILY STOMACH 08/21/22 08/28/25 pravastatin 40 mg tablet 40 mg PO DAILY Cholesterol 08/21/22 08/28/25 cetirizine 10 mg tablet 10 mg PO DAILY ALLERGIES 11/13/22 08/28/25 albuterol sulfate 90 mcg/actuation 1 puff inhalation DIRECTED PRN 12/05/22 08/28/25 aerosol inhaler (ProAir HFA) BREATHING diltiazem HCl 30 mg tablet 30 mg PO ONCE HEART 12/05/22 08/28/25 amantadine HCl 100 mg tablet 100 mg PO DIRECTED . 10/15/23 08/28/25 fluticasone propionate 50 50 mcg intranasal DIRECTED 10/15/23 08/28/25 mcg/actuation nasal Breathing Problems spray,suspension fluticasone fur. 200 mcg-umeclid 1 inh inhalation DAILY 01/07/24 08/28/25 62.5 mcg-vilant 25 mcg inhalat.powder (Trelegy Ellipta) melatonin 5 mg capsule 5 mg PO HS 06/16/24 08/28/25 semaglutide 2 mg/dose (8 mg/3 mL) 2 mg SQ WEEKLY 06/16/24 08/28/25 subcutaneous pen injector (Ozempic) trazodone 100 mg tablet 200 mg PO HS 06/16/24 08/28/25 Previous Rx's ?Medication ?Instructions ?Recorded urea 40 % topical cream 1 applic topical BID 3 months #60 01/07/24 applic prednisone 20 mg tablet 20 mg PO BID #10 tabs 11/28/24 lidocaine 5 % topical patch 1 patch topical DAILY #30 ea 01/05/25 baclofen 10 mg tablet 10 mg PO TID #90 tabs 06/05/25 ketorolac 10 mg tablet 10 mg PO Q8H PRN pain 5 days #20 07/30/25 tabs pregabalin 150 mg capsule (Lyrica) 150 mg PO TID #90 caps 08/28/25 amoxicillin 875 mg-potassium 1 tab PO BID 7 days #14 tabs 08/30/25 clavulanate 125 mg tablet doxycycline hyclate 100 mg capsule 100 mg PO BID 7 days #14 caps 08/30/25 prednisone 20 mg tablet 40 mg (2 x 20 mg) PO DAILY 5 days 08/30/25 #10 tabs Allergies Allergy/AdvReac Type Severity Reaction Status Date / Time Sulfa (Sulfonamide Allergy Rash Verified 08/28/25 13:02 Antibiotics) [facility] Disclaimer: The information contained in this section may have been updated after the patient was seen, as this information can be updated by other users. 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 current occupational exposures/hazards: No caffeine: Yes Other Medical History Have you received the Flu Vaccine for this season: No Have you received the Pneumonia Vaccine: No ROS Obtained: Yes unobtainable due to mental status Physical Exam General General appearance: alert Comment: Ill and toxic appearing Head Head exam: atraumatic Eye Eye exam: Present normal appearance ENT ENT exam: Present normal external ear exam Neck Neck exam: Present full ROM Chest Chest inspection: Present symmetric chest wall rise Respiratory Respiratory exam: Present respiratory distress; Absent normal lung sounds bilaterally (Crackles bilaterally), wheezes or stridor Cardiovascular Cardiovascular exam: Present regular rate and normal rhythm Abdominal Exam Abdominal exam: Present soft; Absent distention, tenderness or guarding Extremities Exam Extremities exam: Present normal inspection Back Exam Back exam: Present normal inspection Neurological Exam Neurological exam: Present other (GCS 13. She is alert and only oriented to self. She does follow commands. She is moving all extremities.) Psychiatric Psychiatric exam: Present other (Unable to assess secondary to mental status) Skin Skin exam: Present warm, dry and other (Pale) Medical Decision Making Medical Records Screening: Per USPSTF and CDC recommendations, given the prevalence of disease in our region, it is our hospital?s policy to screen for HIV and viral Hepatitis for all patients aged 18 and over and those with ongoing risk factors. Bruno Inquiry Pt receiving controlled substance: No Vital Signs: 09/01/25 19:17 09/01/25 19:22 09/01/25 19:56 Temperature 101 F H 99.3 F 99.9 F H Temperature Source Oral Core Core Pulse Rate 118 H 109 H Pulse Rate [Right] 120 H Respiratory Rate 30 H 23 25 H Blood Pressure 131/69 86/55 L Blood Pressure [Right Arm] 139/69 Blood Pressure Mean Blood Pressure Mean [Right Arm] 92 Blood Pressure Source Automatic Cuff Blood Pressure Position Sitting 02 Sat by Pulse Oximetry 97 96 97 Oxygen Delivery Method Nasal Cannula Nasal Cannula Nasal Cannula Oxygen Flow Rate (LPM) 4 4 4 09/01/25 21:00 09/01/25 21:00 09/01/25 21:15 Temperature 99.0 F Temperature Source Pulse Rate 96 H Pulse Rate [Right] Respiratory Rate 12 Blood Pressure 106/79 L 102/76 L Blood Pressure [Right Arm] Blood Pressure Mean 86 82 Blood Pressure Mean [Right Arm] Blood Pressure Source Blood Pressure Position 02 Sat by Pulse Oximetry 95 Oxygen Delivery Method Oxygen Flow Rate (LPM) 3 09/01/25 21:15 Temperature 99.0 F Temperature Source Pulse Rate 96 H Pulse Rate [Right] Respiratory Rate 20 Blood Pressure Blood Pressure [Right Arm] Blood Pressure Mean Blood Pressure Mean [Right Arm] Blood Pressure Source Blood Pressure Position 02 Sat by Pulse Oximetry 96 Oxygen Delivery Method Oxygen Flow Rate (LPM) Lab Data Lab Results 09/01/25 19:09: WBC 14.4 H, RBC 3.84 L, Hgb 10.9 L, Hct 32.8 L, MCV 85.4, MCH 28.4, MCHC 33.2, RDW 12.7, Plt Count 215, MPV 11.5 H, Neut % (Auto) 60.0, Lymph % (Auto) 23.1, [place] % (Auto) 14.2 H, Eos % (Auto) 1.3, Baso % (Auto) 0.4, Neut # (Auto) 8.6 H, Lymph # (Auto) 3.3, [place] # (Auto) 2.0 H, Eos # (Auto) 0.2, Baso # (Auto) 0.1, Total Counted 100, Neutrophils % (Manual) 70, Lymphocytes % (Manual) 24, Monocytes % (Manual) 4, Eosinophils % (Manual) 1, Basophils % (Manual) 1.0, Platelet Estimate Normal, RBC Morphology Normal, Sodium 132 L, Potassium 4.2, Chloride 91 L, Carbon Dioxide 34 H, Anion Gap 11.2, BUN 16, Creatinine 0.70, Estimated Creat Clear 116, Estimated GFR 87, Est GFR ( Amer) 105, Glucose 91, Calcium 8.9, Total Bilirubin 1.0, AST 83 H, ALT 44, Alkaline Phosphatase 106, C-Reactive Protein 85.1 H, Total Protein 6.2 L, Albumin 3.9, Globulin 2.3, Albumin/Globulin Ratio 1.7, Procalcitonin 0.111 09/01/25 19:13: VBG pH 7.45 H, VBG pCO2 42.7, VBG pO2 135.7 H, VBG HCO3 28.9, VBG Total CO2 30.3 H, VBG O2 Saturation 98.5 H, VBG Base Excess 4.9 H, VBG Lactic Acid 2.1 H 09/01/25 19:21: Urine Color Yellow, Urine Appearance Clear, Urine pH 6.0, Ur Specific [place] 1.010, Urine Protein Negative, Urine Glucose (UA) Negative, Urine Ketones Negative, Urine Blood Negative, Urine Nitrate Negative, Urine Bilirubin Negative, Urine Urobilinogen 0.2, Ur Leukocyte Esterase Negative, Urine RBC Occasional, Urine WBC Occasional, Ur Squamous Epith Cells 3-5, Urine Bacteria Trace 09/01/25 19:09 09/01/25 19:09 Orders (Tests/Meds): ED MEDICATIONS Generic Name Dose Route Start Last Admin Trade Name Freq PRN Reason Stop Dose Admin Vancomycin/PEG/NADA/Lysine/Water 1.25 gm in 250 mls @ 125 mls/hr 09/02/25 06:30 Vancomycin 1.25gm/250ml (Peg) Premix IV 09/02/25 08:29 ONCE ONE Miscellaneous 1 each 09/01/25 19:15 Vancomycin Consult Request NOTAPPLIC 10/01/25 19:14 CONSULT [facility] Discontinued Medications Generic Name Dose Route Start Last Admin Trade Name Freq PRN Reason Stop Dose Admin Lactated Ringer's 2,450 mls @ 1,225 mls/hr 09/01/25 19:13 09/01/25 19:44 Lactated Ringer's 1000 Ml Bag 30 ml/kg infuse over 2 hr (2450 ml) 09/01/25 21:12 1,225 mls/hr IV Administration .Q2H ONE Protocol Azithromycin 500 mg/ Sodium 250 mls @ 250 mls/hr 09/01/25 19:13 09/01/25 21:23 Chloride IV 09/01/25 19:14 Infused ONCE ONE Infusion Piperacillin Sod/Tazobactam 100 mls @ 200 mls/hr 09/01/25 19:13 09/01/25 20:20 Sod 4.5 gm/ Sodium Chloride IV 09/01/25 19:42 Infused ONCE ONE Infusion Vancomycin/PEG/NADA/Lysine/Water 1.25 gm in 250 mls @ 125 mls/hr 09/01/25 19:30 09/01/25 21:22 Vancomycin 1.25gm/250ml (Peg) Premix IV 09/01/25 21:29 125 mls/hr ONCE ONE Administration Iopamidol 70 ml 09/01/25 21:00 09/01/25 21:01 Iopamidol-370 (76%);100ml Bottle IV 09/01/25 21:01 70 ml ONCE ONE Administration Sodium Chloride 50 ml 09/01/25 21:00 09/01/25 21:01 0.9 % Sodium Chloride 50 Ml Vial IV 09/01/25 21:01 50 ml ONCE ONE Administration Sodium Chloride 10 ml 09/01/25 21:00 09/01/25 21:01 Sodium Chloride 0.9% 10ml Syr (Rad Only) IV 09/01/25 21:01 10 ml ONCE ONE Administration ORDERS Category Date Time Status CT angio chest PE protocol Stat Cat Scan 09/01/25 19:[address] head/brain wo con Stat Cat Scan 09/01/25 19:13 Taken CXR --portable [XR chest portable] Stat Exams 09/01/25 19:13 Taken CBC w/Auto Diff [Complete Blood Count Auto Diff] Stat Lab 09/01/25 19:09 Completed CMP [Comprehensive Metabolic Panel] Stat Lab 09/01/25 19:09 Completed CRP [C-Reactive Protein] Stat Lab 09/01/25 19:09 Completed Full Resp Panel w/COVID ([facility]) Routine Lab 09/01/25 19:28 Received Procalcitonin Stat Lab 09/01/25 19:09 Completed UA [Urinalysis and Microscopic] Stat Lab 09/01/25 19:21 Completed Blood Culture Stat Micro 09/01/25 19:41 Received Urine Culture Stat Micro 09/01/25 19:21 Received VBG [Venous Blood Gas] Stat RT 09/01/25 19:13 Completed ECG Data Tracing #1: I reviewed this ECG and interpreted as documented below: Sinus tachycardia. Frequent PVCs. No ST elevation or depression. QTc of 412 Medical Decision Narrative: Coretta Moctezuma is a 55-year-old female with a history of COPD on 3 L nasal cannula at home, obesity, type 2 diabetes, obstructive sleep apnea, who presents to the emergency department via EMS for concern for shortness of breath, altered mental status, fever. Per EMS, patient was diagnosed with pneumonia on Sunday. Per EMS, patient became more confused yesterday and into today. They state that when they arrived, her oxygen saturation was in the 70s but she was not on any O2 at that time. EMS gave her a DuoNeb treatment and put her on 4 L nasal cannula with improvement in her oxygen. She was initially hypotensive with systolics in the 80s and received 250 mL of crystalloid fluids with improvement in her blood pressure and route. Fingerstick blood glucose was within normal range. They state the patient was confused and route. On arrival, patient's initial blood pressure was 139/69, tachycardic with a heart rate of 120, tachypneic with respirations of 30/min, febrile with temperature of 101 ?F. 97% on 4 L nasal cannula. Physical exam, stated above, revealed an ill and toxic appearing female. She is alert and oriented only to self. She does follow commands and is moving all extremities. Pupils are equal round reactive to light. She appears pale. Abdomen is soft, nontender nondistended. Cardio pulmonary exam reveals crackles bilaterally and tachycardia but no murmurs or rubs. Differential diagnosis includes, but is not limited to: Sepsis, pneumonia, urinary tract infection, metabolic encephalopathy, electrolyte derangement, dehydration, hypercapnic respiratory failure, among others. The most morbid conditions were considered and workup was based on these. Workup in the emergency room included: Chest x-ray, CT head without contrast, CTA of the chest, CBC with differential, VBG, lactic acid, CMP, CRP, procalcitonin, urinalysis, blood culture x 2. Patient was started on sepsis bolus crystalloid as well as broad-spectrum antibiotics (vancomycin, and Zosyn and azithromycin given patient's recent hospital visit). Patient's workup was interpreted by me personally. Patient has a leukocytosis with white blood cell count of 14, mildly low hemoglobin at 10.9 and hematocrit of 32.8. VBG shows alkalosis with pH of 7.45, pCO2 normal at 42.7, bicarb normal at 28.9. Lactic acid is mildly elevated at 2.1. Mildly low sodium of 132 but potassium normal at 4.2. Anion gap normal at 11.2, liver enzymes grossly unremarkable and nonactionable except for mildly elevated AST of 83. Bilirubin normal at 1. CRP is elevated at 85.1. Procalcitonin normal at 0.111. Urinalysis without evidence of infection. Chest x-ray was interpreted by me personally. Patient has opacity at the left lung base concerning for atelectasis versus pneumonia. CT PE was interpreted by me personally prior to official radiology read. No evidence of pulmonary embolism. Patient does have bilateral ground glass opacities consistent with multifocal pneumonia. CT imaging of the head was interpreted by me personally prior to facial radiology read there is no evidence of intracranial hemorrhage, mass or midline shift. See final radiology report for details. Patient briefly became hypotensive with systolics in the 80s but heart rate had improved. Her blood pressure does seem responsive to sepsis fluid bolus. Temperature has improved. She is on 3 L nasal cannula at this time. Given concern for sepsis in the setting of multifocal pneumonia, I discussed admission with hospitalist, Dr. Stein, who is in agreement to admit the patient at this time. Critical Care Critical Care Time Critical Care Time: Yes Attestation: On 09/01/25, the high probability of a clinically significant, sudden or life threatening deterioration of the following system(s) required my full and direct attention, intervention and personal management. The time I documented below is in addition to time spent performing reported procedures but includes the following listed in this critical care notation. Total Time Total Critical Care Time: 35
[2025-09-01 19:25] LABS: Hematocrit 32.8 % (37.0-47.0); Hemoglobin 10.9 g/dL (12.2-16.2); Immature Granulocytes % 1.0 %; Mean Corpuscular HGB Conc 33.2 g/dL (31.8-35.4); Mean Corpuscular Hemoglobin 28.4 pg (27.0-31.2); Mean Corpuscular Volume 85.4 fl (81-99); Nucleated Red Blood Cells % 0 %; Platelet Count 215 K/mm3 (142-424); Red Blood Count 3.84 M/mm3 (4.20-5.40); Red Cell Distribution Width-SD 38.4 fL; White Blood Count 14.4 K/mm3 (4.8-10.8)
[2025-09-01 19:27] LABS: Microscopic, Urine URINE MICROSCOPIC (MICROSCOPIC)
[2025-09-01 19:33] LABS: VBG HCO3 28.9 mmol/L (23-30); VBG PCO2 42.7 mmol/L (35-51); VBG PH 7.45 mmol/L (7.31-7.41); VBG PO2 135.7 mmol/L (28-40)
[2025-09-01 19:34] LABS: Lactate Venous 2.1 mmol/L (0.4-2.0)
[2025-09-01 19:36] LABS: Bilirubin,Urine Negative (Negative); Color,Urine YELLOW (Yellow); Glucose,Urine (UA) Negative (Negative); Ketones,Urine Negative (Negative); Leukocyte Esterase,Urine Negative (Negative); PH,Urine 6.0 (5.0-8.5); Protein,Urine Negative (Negative); Specific Gravity, Urine 1.010 (1.005-1.030); Urobilinogen,Urine 0.2 EU/dl (0.2)
[2025-09-01 19:40] LABS: Alanine Aminotransferase 44 U/L (12-78); Albumin Level 3.9 g/dl (3.5-5.0); Albumin/Globulin Ratio 1.7 (1.1-1.8); Alkaline Phosphatase 106 U/L (38-126); Anion Gap 11.2 mEq/L (5-15); Aspartate Amino Transferase 83 U/L (14-36); Bilirubin,Total 1.0 mg/dl (0.2-1.3); Blood Urea Nitrogen 16 mg/dl (7-17); Calcium 8.9 mg/dl (8.4-10.2); Carbon Dioxide 34 mmol/L (22.0-30.0); Chloride 91 mmol/L (98-107); Creatinine Clearance Estimated 116 mL/min (50-200); Creatinine,Serum 0.70 mg/dl (0.52-1.04); Estimated Glomerular Filt Rate 87 ml/min (>60); GFR (African American) 105 ML/MIN (>60); Globulin 2.3 g/dL (1.3-3.2); Glucose 91 mg/dl (74-100); Potassium 4.2 mmoL/L (3.5-5.1); Sodium 132 mmol/L (136-145); Total Protein,Serum 6.2 g/dl (6.3-8.2)
[2025-09-01 19:43] LABS: Adenovirus,PCR Not Detected (NotDetected); Chlamydophila Pneumoniae, PCR Not Detected (NotDetected); Coronavirus 19, PCR Not Detected (NotDetected); Coronovirus HKU1,PCR Not Detected (NotDetected); Influenza A, PCR Not Detected (NotDetected); Influenza AH1, 2009 Not Detected (NotDetected); Influenza AH1, PCR Not Detected (NotDetected); Influenza AH3,PCR Not Detected (NotDetected); Influenza B, PCR Not Detected (NotDetected); Mycoplasma Pneumoniae, PCR Not Detected (NotDetected); Parainfluenza 1, PCR Not Detected (NotDetected); Parainfluenza 2, PCR Not Detected (NotDetected); Parainfluenza 3, PCR Not Detected (NotDetected); Parainfluenza 4, PCR Not Detected (NotDetected)
[2025-09-01] MEDS: LACTATED RINGERS 1225 ML IV (19:44)
[2025-09-01 19:45] LABS: C-Reactive Protein 85.1 mg/L (0-4)
[2025-09-01] MEDS: PIPERACILLIN/TAZO 4.5 GM in 0.9 % SODIUM CHLORIDE 100 ML IV (19:45)
[2025-09-01 19:57] LABS: Procalcitonin 0.111 ng/mL (0.0-2.0)
--- NOTE | 2025-09-01 19:59 | CT_ITS ---
PROCEDURE INFORMATION: Exam: CTA Chest With Contrast Exam date and time: 09/01/2025 8:56 PM Age: 55 years old Clinical indication: Other: Sepsis, possible pneumonia TECHNIQUE: Imaging protocol: Computed tomographic angiography of the chest with contrast. Exam focused on the arteries. 3D rendering (Not supervised by radiologist): MIP and/or 3D reconstructed images were created by the technologist. Radiation optimization: All CT scans at this facility use at least one of these dose optimization techniques: automated exposure control; mA and/or kV adjustment per patient size (includes targeted exams where dose is matched to clinical indication); or iterative reconstruction. Contrast material: ISO 370; Contrast volume: 70 ml; Contrast route: INTRAVENOUS (IV); COMPARISON: CR XR CHEST PORTABLE 09/01/2025 8:38 PM FINDINGS: Pulmonary arteries: No CT angiography evidence of pulmonary embolism. Aorta: Unremarkable. No aortic aneurysm. No aortic dissection. Lungs: Patchy peripheral subpleural predominant ground-glass and linear opacities characteristic of atypical viral infection. Pleural spaces: Unremarkable. No pneumothorax. No pleural effusion. Heart: Unremarkable. No cardiomegaly. No pericardial effusion. Lymph nodes: Prominent mediastinal and hilar lymph nodes are likely reactive. Liver: Diffuse hypoattenuation of the liver compatible with moderate hepatic steatosis. Bones/joints: Unremarkable. No acute fracture. Soft tissues: Unremarkable. IMPRESSION: 1. Patchy peripheral subpleural predominant ground-glass and linear opacities characteristic of atypical viral infection. 2. No CT angiography evidence of pulmonary embolism.
--- NOTE | 2025-09-01 19:59 | PC.NURSE ---
Addendum entered by Bakari Dickson RN 09/01/25 20:56: Pt taken to CT scan Addendum entered by Bakari Dickson RN 09/01/25 20:24: Pt presented via EMS with familial c/o increased confusion since pneumonia diagnosis on Sunday. Pt family states confusion got progressively worse today. Pt is alert and oriented to self only. Bilateral wheezing auscultated in lateral lower lung lobes, as well as rapid labored respirations noted. Pt is currently in normal sinus rhythm. Skin is hot and dry to the touch. Fluids and antibiotics are running at ordered rate. IV sites are pink, clean, dry, and intact no edema present at insertions sites. Pt has +2 edema bilaterally on lower extremeties as well as weak pedal pulses. Abdomen is soft, nondistended, and nontender to touch. Original Note: Pt presented via EMS with familial c/o increased confusion since pneumonia diagnosis on Sunday. Pt family states confusion got progressively worse today. Pt is alert and oriented to self only. Bilateral wheezing heard in lungs, as well as increased respiratory effort noted. Pt fluctuating between normal sinus and sinus tach. Skin is warm and dry to the touch. Fluids and antibiotics are running at ordered rate. IV sites are pink, clean, dry, and intact. Abdomen is soft, nondistended, and nontender to touch.
[2025-09-01 20:07] LABS: Bacteria,Urine Trace /lpf; RBC,Urine Occasional #/hpf (0-3); WBC,Urine Occasional #/hpf (0-3)
[2025-09-01] MEDS: AZITHROMYCIN 500 MG in 0.9 % SODIUM CHLORIDE 250 ML 250 MG IV (20:15)
[2025-09-01 20:17] LABS: Total Cells Counted 100
[2025-09-01 20:20] LABS: RBC Morphology Normal
[2025-09-01] MEDS: 0.9 % SODIUM CHLORIDE 50 ML VIAL IV (21:01)
[2025-09-01] MEDS: IOPAMIDOL-370 (76%);100ML BOTTLE 70 ML IV (21:01)
[2025-09-01] MEDS: SODIUM CHLORIDE 0.9% 10ML SYR (RAD ONLY) 10 ML IV (21:01)
[2025-09-01] MEDS: VANCOMYCIN/WATER FOR INJ (PEG) 1.25 GM/250 ML PIGGYBACK IV (21:22)
--- NOTE | 2025-09-01 21:56 | P.HP_ITS ---
<Statement entered by Pato Stephens MD - 09/04/25 11:59> Agree with plan of care as outlined by the DRAFTER ([facility]) [employer]. History of Present Illness *Admission Date: 09/01/25 *Reason for visit:: Altered mental status *History of present illness: This is a 55-year-old female who has a past medical history significant for diabetes, COPD with home O2 dependency at 2 L, obstructive sleep apnea, hyperlipidemia, hypertension, lumbar radiculopathy, and neuropathy who p resents with a chief complaint of altered mental status. Due to patient's altered mental status, her review of systems is limited; as a result, the majority of information was obtained from ER provider, chart review, and mother at the bedside. According to ER provider, EMS was contacted and presented to patient's home where they found patient was hypoxic with room air saturations at 70%-patient was not wearing her prescribed supplemental oxygen. EMS gave patient a DuoNeb and placed supplemental oxygen on patient. Moreover, EMS reports patient systolic blood pressure was in the 70s. They gave 250 mL bolus and transition patient to [facility] for further management. While in the emergency room, CT scan of the head was positive for multiple lobular pneumonia- is pending final read by radiologist. CT scan of the head was negative for any acute intracranial process per my independent read-is pending final read by radiologist. Patient was meeting sepsis criteria, so she has been admitted for further management. During my evaluation of the patient, patient responded to painful stimuli only- she could provide no meaningful data. I spoke with mom at the bedside who states that patient has been sick since Sunday. She was prescribed doxycycline. Unfortunately, patient did not take her first dose of doxycycline until last night. Mother states that patient called her yesterday into the room and asked her if she hit her some music playing. Her mother states that she inform her know she did not hear music playing however she informed her that she was wheezing pretty loud. Mother reports that patient has been treated for pneumonia on multiple occasions. She was hospitalized at a hospital in [place]. She also her that her daughter has a diagnosis of obstructive sleep apnea and unfortunately she could not find a device to wear it that would make her be compliant., So she has been without a CPAP since -2010. Mother states that patient's confusion started yesterday as well. Patient stopped smoking in November of this year; however, mom states she has been finding evidence of patient's continued smoking. Additional pertinent values obtained include a white blood cell count of 14.4, Lucy count of 3.84, hemoglobin 10.9, hematocrit 32.8, sodium 132, chloride of 91, carbon oxide of 34, AST of 83, and C-reactive protein 85.1. [facility] Disclaimer: The information contained in this section may have been updated after the patient was seen, as this information can be updated by other users. 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 current occupational exposures/hazards: No caffeine: Yes Other Medical History Have you received the Flu Vaccine for this season: No Have you received the Pneumonia Vaccine: No Review of Systems Review of Systems Review of systems:: unable to obtain Meds Home Medications and Allergies Home Medications ?Medication ?Instructions ?Recorded ?Confirmed ?Type buspirone 10 mg tablet 10 mg PO BID mood 05/12/21 1 History estradiol 0.5 mg tablet 0.5 mg PO DAILY HRT 05/12/21 08/28/25 History montelukast 10 mg tablet 10 mg PO PM allergies 08/28/25 History paroxetine HCl 40 mg tablet 40 mg PO DAILY mood 08/28/25 History pantoprazole 40 mg tablet,delayed 40 mg PO DAILY Reflu x/Acid reflux 07/07/21 08/28/25 History release lidocaine-prilocaine 2.5 %-2.5 % 1 applic topical .COM PLEX Pain 09/08/21 08/28/25 History topical cream hydroxyzine HCl 50 mg tablet 50 mg PO TID Pain 2 08/28/25 History buprenorphine 2 mg-naloxone 0.5 mg 1 film sublingual D AILY Pain 01/23/22 08/28/25 History sublingual film aspirin 81 mg tablet,delayed 81 mg PO DAILY Blood thin ner 03/23/22 08/28/25 History release metformin 500 mg tablet 500 mg PO DAILY Diabetes 07/1708/28/25 History ondansetron HCl 8 mg tablet 8 mg PO DAILY PRN Stomach Upset 08/03/22 08/28/25 History famotidine 40 mg tablet 40 mg PO DAILY STOMACH 08/2108/28/25 History pravastatin 40 mg tablet 40 mg PO DAILY Cholesterol 0 08/21/22 08/28/25 History cetirizine 10 mg tablet 10 mg PO DAILY ALLERGIES 08/28/25 History albuterol sulfate 90 mcg/actuation 1 puff inhalation A S DIRECTED PRN 12/05/22 08/28/25 History aerosol inhaler (ProAir HFA) BREATHING diltiazem HCl 30 mg tablet 30 mg PO ONCE HEART 3 08/28/25 History amantadine HCl 100 mg tablet 100 mg PO DIRECTED . 1 12/15/22 08/28/25 History fluticasone propionate 50 50 mcg intranasal DIRECTE D 10/15/23 08/28/25 History mcg/actuation nasal Breathing Problems spray,suspension fluticasone fur. 200 mcg-umeclid 1 inh inhalation HAN Y 01/07/24 08/28/25 History 62.5 mcg-vilant 25 mcg inhalat.powder (Trelegy Ellipta) urea 40 % topical cream 1 applic topical BID 3 month s #60 01/07/24 08/28/25 Rx applic melatonin 5 mg capsule 5 mg PO HS 06/16/24 08/28/25 History semaglutide 2 mg/dose (8 mg/3 mL) 2 mg SQ WEEKLY 06/1608/28/25 History subcutaneous pen injector (Ozempic) trazodone 100 mg tablet 200 mg PO HS 06/16/24 History prednisone 20 mg tablet 20 mg PO BID #10 tabs 08/28/25 Rx lidocaine 5 % topical patch 1 patch topical DAILY #30 ea 01/05/25 08/28/25 Rx baclofen 10 mg tablet 10 mg PO TID #90 tabs 08/28/25 Rx ketorolac 10 mg tablet 10 mg PO Q8H PRN pain 5 days #20 07/30/25 08/28/25 Rx tabs pregabalin 150 mg capsule (Lyrica) 150 mg PO TID #90 c aps 08/28/25 08/28/25 Rx amoxicillin 875 mg-potassium 1 tab PO BID 7 days #14 t abs 08/30/25 Rx clavulanate 125 mg tablet doxycycline hyclate 100 mg capsule 100 mg PO BID 7 day s #14 caps 08/30/25 Rx prednisone 20 mg tablet 40 mg (2 x 20 mg) PO DAILY 5 days 08/30/25 Rx #10 tabs New Prescriptions to Start Prescriptions: Allergies Allergy/AdvReac Type Severity Reaction Status Date / Time Sulfa (Sulfonamide Allergy Rash Verified 08/28/25 13:02 Antibiotics) Exam Data for Last 24 hours Vital signs and Labs for Last 24 Hours: Temp Pulse Resp BP Pulse Ox O2 Del Method O2 Flow Rate 99.0 F 96 H 20 102/76 L 96 Nasal Cannula 3 09/01/25 21:15 09/01/25 21:15 09/01/25 21:15 09/01/25 21:15 09/01/25 21:15 09/01/25 19:56 09/01/25 21:00 Laboratory Results - last 24 hr 09/01/25 19:09: WBC 14.4 H, RBC 3.84 L, Hgb 10.9 L, Hct 32.8 L, MCV 85.4, MCH 28.4, MCHC 33.2, RDW 12.7, Plt Count 215, MPV 11.5 H, Neut % (Auto) 60.0, Lymph % (Auto) 23.1, [place] % (Auto) 14.2 H, Eos % (Auto) 1.3, Baso % (Auto) 0.4, Neut # (Auto) 8.6 H, Lymph # (Auto) 3.3, [place] # (Auto) 2.0 H, Eos # (Auto) 0.2, Baso # (Auto) 0.1, Total Counted 100, Neutrophils % (Manual) 70, Lymphocytes % (Manual) 24, Monocytes % (Manual) 4, Eosinophils % (Manual) 1, Basophils % (Manual) 1.0, Platelet Estimate Normal, RBC Morphology Normal, Sodium 132 L, Potassium 4.2, Chloride 91 L, Carbon Dioxide 34 H, Anion Gap 11.2, BUN 16, Creatinine 0.70, Estimated Creat Clear 116, Estimated GFR 87, Est GFR ( Amer) 105, Glucose 91, Calcium 8.9, Total Bilirubin 1.0, AST 83 H, ALT 44, Alkaline Phosphatase 106, C-Reactive Protein 85.1 H, Total Protein 6.2 L, Albumin 3.9, Globulin 2.3, Albumin/Globulin Ratio 1.7, Procalcitonin 0.111 09/01/25 19:13: VBG pH 7.45 H, VBG pCO2 42.7, VBG pO2 135.7 H, VBG HCO3 28.9, VBG Total CO2 30.3 H, VBG O2 Saturation 98.5 H, VBG Base Excess 4.9 H, VBG Lactic Acid 2.1 H 09/01/25 19:21: Urine Color Yellow, Urine Appearance Clear, Urine pH 6.0, Ur Specific [place] 1.010, Urine Protein Negative, Urine Glucose (UA) Negative, Urine Ketones Negative, Urine Blood Negative, Urine Nitrate Negative, Urine Bilirubin Negative, Urine Urobilinogen 0.2, Ur Leukocyte Esterase Negative, Urine RBC Occasional, Urine WBC Occasional, Ur Squamous Epith Cells 3-5, Urine Bacteria Trace I & O for Last 24 hours: Intake & Output 08/29/25 08/30/25 08/31/25 09/01/25 23:59 23:59 23:59 23:59 Intake Total 350 / 350 Output Total 350 / 350 Balance 0 / 0 Weight 81.647 kg Constitutional Constitutional: no acute distress, obese and somnolent *Routine HEENT Exam Head: Present normocephalic and atraumatic Eye: Present EOMI and PERRL ENT: Present mucous membranes moist *Routine Neck Exam Neck: Present supple, full ROM and trachea midline *Routine Respiratory Exam Respiratory: Present wheezes, distant breath sounds and diminished air movement *Routine Cardiovascular Exam Cardiovascular: Present RRR, Normal S1 and Normal S2 *Routine Abdominal Exam Abdominal: Present soft and normoactive bowel sounds *Routine Rectal Exam Rectal:: deferred *Routine Genitalia Exam Genitalia:: deferred *Routine Extremities Exam Extremities: Present pulses intact and normal capillary refill *Routine Skin Exam Skin: Present intact, dry, warm and normal turgor *Routine Neurological Exam Neurological: Present CN II-XII intact and altered mental status Routine Psychiatric Exam Psychiatric: Present normal affect, normal thought process, cooperative, good insight and good judgment H&P: Result Impressions 55-year-old female with known obstructive sleep apnea and is not compliant with CPAP presents with multilobular pneumonia that was refractory to outpatient therapy. Patient is encephalopathic most likely due to current illness. Assessment and Plan *Assessment and plan (1) Multifocal pneumonia: Status: Acute Category: Medical Code(s): J18.8 - Other pneumonia, unspecified organism (2) Sepsis: Status: Acute Qualifiers: Sepsis type: sepsis due to unspecified organism Sepsis acute organ dysfunction status: with acute organ dysfunction Severe sepsis acute organ dysfunction type: acute respiratory failure Severe sepsis shock status: unspecified Acute respiratory failure type: with hypoxia Qualified Code(s): A41.9 - Sepsis, unspecified organism; R65.20 - Severe sepsis without septic shock; J96.01 - Acute respiratory failure with hypoxia Category: Medical Code(s): A41.9 - Sepsis, unspecified organism (3) Altered mental status: Status: Acute Qualifiers: Altered mental status type: unspecified Qualified Code(s): R41.82 - Altered mental status, unspecified Category: Medical Code(s): R41.82 - Altered mental status, unspecified (4) Leukocytosis: Status: Acute Qualifiers: Leukocytosis type: unspecified Qualified Code(s): D72.829 - Elevated white blood cell count, unspecified Category: Medical Code(s): D72.829 - Elevated white blood cell count, unspecified (5) Hyponatremia: Status: Acute Category: Medical Code(s): E87.1 - Hypo-osmolality and hyponatremia (6) Lactic acidosis: Status: Acute Category: Medical Code(s): E87.20 - Acidosis, unspecified (7) Elevated C-reactive protein (CRP): Status: Acute Category: Medical Code(s): R79.82 - Elevated C-reactive protein (CRP) (8) Acute on chronic hypoxic respiratory failure: Status: Acute Category: Medical Code(s): J96.21 - Acute and chronic respiratory failure with hypoxia (9) Fever: Status: Acute Qualifiers: Fever type: unspecified Qualified Code(s): R50.9 - Fever, unspecified Category: Medical Code(s): R50.9 - Fever, unspecified (10) Hypotension: Status: Acute Qualifiers: Hypotension type: unspecified hypotension type Qualified Code(s): I95.9 - Hypotension, unspecified Category: Medical Code(s): I95.9 - Hypotension, unspecified (11) COPD exacerbation: Status: Acute Category: Medical Code(s): J44.1 - Chronic obstructive pulmonary disease with (acute) exacerbation Plan Assessment: Sepsis: Patient is meeting sepsis criteria with high heart rate, fever, and source of pneumonia Multi focal pneumonia COPD exacerbation Altered mental status: Most likely due to toxic metabolic encephalopathy Leukocytosis Lactic acidosis Acute on chronic hypoxic respiratory failure Fever: Improved Hypotension: Improved Elevated CRP -Patient received 30 mL/kg of body weight of IV hydration while in emergency room - Sepsis reperfusion screening performed - Will continue 1 g Rocephin IV daily coupled with 250 mg azithromycin daily - Sputum for culture -Patient may need benefit from sleep study again as an outpatient to determine which device would best suit-I highlighted to the mom that only treated DEBI can lead to cardiovascular and pulmonary complications - Patient may benefit from transportation assistant evaluation - CT scan of the head is negative for any acute intracranial process. Suspect the patient's altered mental status is due to toxic metabolic encephalopathy-if patient's symptoms do not improve after 24 hours of antibiotics, will consider MRI of the brain without contrast - Once patient's med rec is updated we will continue patient's leukotriene inhibitor - DuoNebs every 6 hours - 0.5 mg of budesonide nebulized treatment twice daily - 40 mg Solu-Medrol IV twice daily - Repeat patient's venous lactic acid - Obtain procalcitonin = Will continue supplemental oxygen maintain oxygen saturation greater 92%- patient has reassuring VBG - Will continue antipyretics for fever - Will monitor patient closely for shock state-blood pressure did improve after fluid bolus challenge - Blood cultures x 2 - Neurochecks every 4 hours Hyponatremia -Normal saline at 100 mL an hour Plan: Admit patient to the stepdown unit Vital signs every 2 hours Cardiac diet Sliding scale insulin AC and at bedtime with mild scale coverage Patient has respiratory panel pending CBC/BMP daily 40 mg Lovenox subcu daily for DVT prophylax 21 mg nicotine patch daily 4 mg Zofran IV push every 8 hours for nausea vomiting/patient did receive 1 dose of vancomycin-Will hold off on additional doses-MRSA superinfection is less likely Sputum for culture Full code I will discussed this case with attending physician Dr. Stephens and I look forward to more input
--- NOTE | 2025-09-01 22:14 | EXP.SEPSISRE ---
[facility] Tissue Perfusion Eval Sepsis Re-Evaluation Performed: Yes Date Performed: 09/01/25 Time Performed: 22:14
--- NOTE | 2025-09-01 22:19 | PC.NURSE ---
Patient admitted to ICU unit via ED criselda @21:53
[2025-09-01] MEDS: 0.9 % SODIUM CHLORIDE 1000ML 1,000 ML 100 ML IV (22:26)
[2025-09-01 23:34] LABS: Reflex Lactic Add Lactic Reflex
[2025-09-02] VITALS (17 sets, daily range): BP systolic 100–130; BP diastolic 56–82; PULSE 43–100; RESP 10–18; TEMP 36.5–37.8; O2SAT 89–100; BMI 33.3
[2025-09-02] MEDS: IPRATROPIUM/ALBUTEROL 3 ML NEB IH ×4 (00:16→20:25)
[2025-09-02 00:30] LABS: Lactic Acid Follow Up (RFLX 1) 2.2 mmol/L (0.7-2.1)
--- NOTE | 2025-09-02 00:44 | PC.NURSE ---
Addendum entered by Christine Heaton RN 09/02/25 07:18: Pt is less lethargic at this time, still confused. Has been screaming I need to pee. States she wants her Mom and wants to go home. Original Note: Pt admitted to ICU room 266. Upon assessment, pt is very lethargic/somnolent. Pt will open eyes to loud speaking or light shaking, Is slow to respond verbally, is slow to follow commands. Pupil response slow. Pt intermittently moving eyes from left to right while trying to speak with her. PCO2 42.7. Darnell WHITAKER was called about concerns of pts neuro status. Drug screen being ordered. States we will do MRI of brain if not improved.
[2025-09-02 01:24] LABS: Reflex Lactic (2 hrs) Add Lactic Reflex
[2025-09-02 01:41] LABS: Lactic Acid Follow up (RFLX 2) 1.8 mmol/L (0.7-2.1)
[2025-09-02 04:35] LABS: Benzodiazepines Screen,Urine Positive ng/ml (<200)
[2025-09-02 04:36] LABS: Amphetamine/Metha Screen,Urine Negative ng/ml (<1000)
[2025-09-02 04:37] LABS: Barbiturates Screen,Urine Negative ng/ml (<200)
[2025-09-02 04:39] LABS: Methadone Screen,Urine Negative ng/ml (<300)
[2025-09-02 04:40] LABS: Opiate Screen,Urine Negative ng/ml (<300)
[2025-09-02 04:52] LABS: Phencyclidine Screen,Urine Negative ng/ml (<25)
--- NOTE | 2025-09-02 05:17 | PC.NURSE ---
IV to RAC infiltrated. IV pulled, arm wrapped. new 20G IV started to LFA.
[2025-09-02 05:44] LABS: Anion Gap 8.0 mEq/L (5-15); Blood Urea Nitrogen 10 mg/dl (7-17); Calcium 8.5 mg/dl (8.4-10.2); Carbon Dioxide 35 mmol/L (22.0-30.0); Chloride 97 mmol/L (98-107); Creatinine Clearance Estimated 169 mL/min (50-200); Creatinine,Serum 0.50 mg/dl (0.52-1.04); Estimated Glomerular Filt Rate 128 ml/min (>60); GFR (African American) 154 ML/MIN (>60); Glucose 90 mg/dl (74-100); Potassium 4.0 mmoL/L (3.5-5.1); Sodium 136 mmol/L (136-145)
[2025-09-02] MEDS: BUDESONIDE 0.5MG/2ML NEB 0.5 MG IH ×2 (05:58→20:25)
[2025-09-02 06:01] LABS: Procalcitonin 0.116 ng/mL (0.0-2.0)
[2025-09-02 06:06] LABS: POC Glucose,Bedside 136 gm/dL (70-110)
[2025-09-02 06:07] LABS: Hematocrit 32.2 % (37.0-47.0); Hemoglobin 10.4 g/dL (12.2-16.2); Immature Granulocytes % 1.1 %; Mean Corpuscular HGB Conc 32.3 g/dL (31.8-35.4); Mean Corpuscular Hemoglobin 28.0 pg (27.0-31.2); Mean Corpuscular Volume 86.8 fl (81-99); Nucleated Red Blood Cells % 0 %; Platelet Count 179 K/mm3 (142-424); Red Blood Count 3.71 M/mm3 (4.20-5.40); Red Cell Distribution Width-SD 40.4 fL; White Blood Count 9.4 K/mm3 (4.8-10.8)
--- NOTE | 2025-09-02 08:17 | [facility].PHAINT1 ---
Pharmacy Intervention Comments: MEDICATION RECONCILIATION COMPLETED ON PATIENT USING EXTERNAL FILL HISTORY FROM PHARMACY. -BRET ROGERS, SUSYD
[2025-09-02] MEDS: METHYLPREDNISOLONE SOD SUCC 40MG VIAL 40 MG IV ×2 (08:53→20:34)
[2025-09-02] MEDS: 0.9 % SODIUM CHLORIDE 1000ML 1,000 ML 100 ML IV (09:22)
--- NOTE | 2025-09-02 09:36 | EXP.PULM.CON ---
History of Present Illness History of present illness: Ms. Moctezuma is a 55-year-old female significant smoking history, diagnosis of COPD, at baseline on 2 L nasal cannula oxygen supplementation, using Trelegy 200 inhaler, presented with worsening respiratory distress and pulmonary was called for further evaluation and management. She was recently seen in the ER for worsening respiratory distress and worsening itching after painful bowel patient received morphine, discharged home on doxycycline Augmentin and prednisone. Patient family also admits frequent respiratory infections 3-4 times so far this year. [facility] Disclaimer: The information contained in this section may have been updated after the patient was seen, as this information can be updated by other users. 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 current occupational exposures/hazards: No caffeine: Yes Review of Systems Constitutional Constitutional: Reports body ache(s), Reports fatigue and Reports lethargy Eyes Eyes: Denies eye discharge, Denies dry eyes, Denies irritation and Denies itchy eyes ENT Ears, Nose, Mouth, and Throat: Denies epistaxis, Denies facial pain, Denies lip swelling and Denies throat swelling *Cardiovascular Cardiovascular: Reports dyspnea and Reports dyspnea on exertion *Respiratory Respiratory: Denies change in phlegm color, Reports chest congestion, Reports cough, Reports dyspnea, Reports dyspnea on exertion, Reports excessive phlegm production, Denies hemoptysis, Denies pain on inspiration, Denies pain with cough and Reports wheezing *Gastrointestinal Gastrointestinal: Denies abdominal pain, Denies belching and Denies cramping *Musculoskeletal Musculoskeletal: Reports back pain, Reports myalgias and Reports other (No small joint swelling or Pain) Psychiatric Psychiatric: Reports anhedonia, Denies homicidal ideation and Denies suicidal ideation Endocrine Endocrine: Reports fatigue and Denies heat intolerance Hematologic/Lymphatic Hematologic/Lymphatic: Denies easy bleeding and Denies lymphadenopathy Allergic/Immunologic Allergic/Immunologic: Denies itchy eyes, Denies lip swelling, Denies throat swelling and Reports wheezing Pulmonology Exam Inpatient Vital signs and Labs for Last 24 Hours: Temp Pulse Resp BP Pulse Ox O2 Del Method O2 Flow Rate 100.0 F H 100 H 12 100/60 L 92 L Nasal Cannula 2 09/02/25 08:01 09/02/25 08:59 09/02/25 06:00 09/02/25 08:01 09/02/25 08:09 09/02/25 09:00 09/02/25 09:00 Laboratory Results - last 24 hr 09/01/25 19:09: WBC 14.4 H, RBC 3.84 L, Hgb 10.9 L, Hct 32.8 L, MCV 85.4, MCH 28.4, MCHC 33.2, RDW 12.7, Plt Count 215, MPV 11.5 H, Neut % (Auto) 60.0, Lymph % (Auto) 23.1, [place] % (Auto) 14.2 H, Eos % (Auto) 1.3, Baso % (Auto) 0.4, Neut # (Auto) 8.6 H, Lymph # (Auto) 3.3, [place] # (Auto) 2.0 H, Eos # (Auto) 0.2, Baso # (Auto) 0.1, Total Counted 100, Neutrophils % (Manual) 70, Lymphocytes % (Manual) 24, Monocytes % (Manual) 4, Eosinophils % (Manual) 1, Basophils % (Manual) 1.0, Platelet Estimate Normal, RBC Morphology Normal, Sodium 132 L, Potassium 4.2, Chloride 91 L, Carbon Dioxide 34 H, Anion Gap 11.2, BUN 16, Creatinine 0.70, Estimated Creat Clear 116, Estimated GFR 87, Est GFR ( Amer) 105, Glucose 91, Calcium 8.9, Total Bilirubin 1.0, AST 83 H, ALT 44, Alkaline Phosphatase 106, C-Reactive Protein 85.1 H, Total Protein 6.2 L, Albumin 3.9, Globulin 2.3, Albumin/Globulin Ratio 1.7, Procalcitonin 0.111 09/01/25 19:13: VBG pH 7.45 H, VBG pCO2 42.7, VBG pO2 135.7 H, VBG HCO3 28.9, VBG Total CO2 30.3 H, VBG O2 Saturation 98.5 H, VBG Base Excess 4.9 H, VBG Lactic Acid 2.1 H 09/01/25 19:21: Urine Color Yellow, Urine Appearance Clear, Urine pH 6.0, Ur Specific [place] 1.010, Urine Protein Negative, Urine Glucose (UA) Negative, Urine Ketones Negative, Urine Blood Negative, Urine Nitrate Negative, Urine Bilirubin Negative, Urine Urobilinogen 0.2, Ur Leukocyte Esterase Negative, Urine RBC Occasional, Urine WBC Occasional, Ur Squamous Epith Cells 3-5, Urine Bacteria Trace, Urine Opiates Screen Negative, Urine Methadone Screen Negative, Ur Barbituates Screen Negative, Ur Phencyclidine Scrn Negative, Ur Amphetamines Screen Negative, U Benzodiazepines Scrn Positive H, Urine Cocaine Screen Negative, U Marijuana (THC) Screen Negative 09/01/25 19:28: Chlamy pneumoniae PCR Not detected, Adenovirus (PCR) Not detected, B. pertussis DNA (PCR) Not detected, Coronavirus OC43 (PCR) Not detected, Coronavirus HKU1 (PCR) Not detected, Coronavirus 229E (PCR) Not detected, SARS-CoV-2 (PCR) Not detected, Coronavirus NL63 (PCR) Not detected, Human Metapneumovir PCR Not detected, Influenza A (H1) PCR Not detected, Influ A (H1N1/09) PCR Not detected, Influenza A (H3) PCR Not detected, Influenza Type A (PCR) Not detected, Influenza Type B (PCR) Not detected, M. pneumoniae (PCR) Not detected, Parainfluenza 1 (PCR) Not detected, Parainfluenza 2 (PCR) Not detected, Parainfluenza 3 (PCR) Not detected, Parainfluenza 4 (PCR) Not detected, RSV (PCR) Not detected, Entero/Rhino (PCR) Not detected 09/01/25 23:45: Lactate 2.2 H 09/02/25 01:15: Lactate 1.8 09/02/25 05:15: WBC 9.4 D, RBC 3.71 L, Hgb 10.4 L, Hct 32.2 L, MCV 86.8, MCH 28.0, MCHC 32.3, RDW 12.8, Plt Count 179, MPV 11.3 H, Neut % (Auto) 62.1, Lymph % (Auto) 21.3, [place] % (Auto) 12.4 H, Eos % (Auto) 2.5, Baso % (Auto) 0.6, Neut # (Auto) 5.8, Lymph # (Auto) 2.0, [place] # (Auto) 1.2 H, Eos # (Auto) 0.2, Baso # (Auto) 0.1, Sodium 136, Potassium 4.0, Chloride 97 L, Carbon Dioxide 35 H, Anion Gap 8.0, BUN 10 D, Creatinine 0.50 L D, Estimated Creat Clear 169, Estimated GFR 128, Est GFR ( Amer) 154 D, Glucose 90, Calcium 8.5, Procalcitonin 0.116 09/02/25 05:56: POC Glucose 136 H I & O for Labs for Last 24 Hours: Intake & Output 08/30/25 08/31/25 09/01/25 09/02/25 23:59 23:59 23:59 23:59 Intake Total 350 / 350 3700 / 3700 Output Total 700 / 1050 1145 / 1145 Balance -350 / -700 2555 / 2555 Weight 188 lb 4.396 oz 188 lb 4.396 oz Constitutional: Present moderate distress Head: Present normocephalic and atraumatic ENT: Present normal exam, normal oropharynx and mucous membranes moist Neck: Present normal inspection and full ROM Respiratory: Present prolonged expiratory phase, rhonchi, crackles and able to speak in complete sentences; Absent wheezes Cardiac: Present S1/S2, Tachycardia and radial pulses present GI: Present soft and distention; Absent tenderness or guarding Rectal (female): Present deferred (female): Present deferred Skin: Present intact; Absent cyanosis or jaundice Neuro: Present alert and awake Extremities: Present normal inspection; Absent clubbing or cyanosis Psychiatric: Present cooperative and depressed Meds Home Medications and Allergies Home Medications ?Medication ?Instructions ?Recorded ?Confirmed ?Type montelukast 10 mg tablet 10 mg PO HS 05/12/21 09/02/25 History pantoprazole 40 mg tablet,delayed 40 mg PO DAILY 07/07/21 09/02/25 History release aspirin 81 mg tablet,delayed 81 mg PO DAILY 03/23/22 09/02/25 History release metformin 500 mg tablet 500 mg PO DAILY 08/03/22 09/02/25 History pravastatin 40 mg tablet 40 mg PO DAILY 08/21/22 09/02/25 History fluticasone fur. 200 mcg-umeclid 1 inh inhalation DAILY 01/07/24 09/02/25 History 62.5 mcg-vilant 25 mcg inhalat.powder (Trelegy Ellipta) pregabalin 150 mg capsule (Lyrica) 150 mg PO TID #90 caps 08/28/25 09/02/25 Rx amoxicillin 875 mg-potassium 1 tab PO BID 7 days #14 tabs 08/30/25 09/02/25 Rx clavulanate 125 mg tablet doxycycline hyclate 100 mg capsule 100 mg PO BID 7 days #14 caps 08/30/25 09/02/25 Rx prednisone 20 mg tablet 40 mg (2 x 20 mg) PO DAILY 5 days 08/30/25 09/02/25 Rx #10 tabs buspirone 15 mg tablet 15 mg PO BID 09/02/25 09/02/25 History diazepam 5 mg tablet 5 mg PO DAILY 09/02/25 09/02/25 History duloxetine 60 mg capsule,delayed 60 mg PO DAILY 09/02/25 09/02/25 History release estradiol 0.01% (0.1 mg/gram) 2 g vaginal DAILY 09/02/25 09/02/25 History vaginal cream fluticasone propionate 50 2 spray intranasal DAILY 09/02/25 09/02/25 History mcg/actuation nasal spray,suspension furosemide 20 mg tablet 20 mg PO DAILY 09/02/25 09/02/25 History paroxetine HCl 10 mg tablet 10 mg PO HS 09/02/25 09/02/25 History zolpidem 10 mg tablet 10 mg PO HS 09/02/25 09/02/25 History New Prescriptions to Start Prescriptions: Allergies Allergy/AdvReac Type Severity Reaction Status Date / Time Sulfa (Sulfonamide Allergy Rash Verified 08/28/25 13:02 Antibiotics) Results Laboratory Findings 09/02/25 05:15 09/02/25 05:15 Abnormal lab findings: Abnormal Labs 09/01/25 09/01/25 09/01/25 19:09 19:13 19:21 WBC 14.4 H RBC 3.84 L Hgb 10.9 L Hct 32.8 L MPV 11.5 H [place] % (Auto) 14.2 H Neut # (Auto) 8.6 H [place] # (Auto) 2.0 H VBG pH 7.45 H VBG pO2 135.7 H VBG Total CO2 30.3 H VBG O2 Saturation 98.5 H VBG Base Excess 4.9 H VBG Lactic Acid 2.1 H Sodium 132 L Chloride 91 L Carbon Dioxide 34 H Creatinine POC Glucose Lactate AST 83 H C-Reactive Protein 85.1 H Total Protein 6.2 L U Benzodiazepines Scrn Positive H 09/01/25 09/02/25 09/02/25 23:45 05:15 05:56 WBC RBC 3.71 L Hgb 10.4 L Hct 32.2 L MPV 11.3 H [place] % (Auto) 12.4 H Neut # (Auto) [place] # (Auto) 1.2 H VBG pH VBG pO2 VBG Total CO2 VBG O2 Saturation VBG Base Excess VBG Lactic Acid Sodium Chloride 97 L Carbon Dioxide 35 H Creatinine 0.50 L D POC Glucose 136 H Lactate 2.2 H AST C-Reactive Protein Total Protein U Benzodiazepines Scrn Assessment and Plan *Assessment and plan (1) Pneumonia: Status: Acute Qualifiers: Laterality: bilateral Lung location: unspecified part of lung Pneumonia type: due to unspecified organism Qualified Code(s): J18.9 - Pneumonia, unspecified organism Category: Medical Code(s): J18.9 - Pneumonia, unspecified organism (2) Acute on chronic hypoxic respiratory failure: Status: Acute Category: Medical Code(s): J96.21 - Acute and chronic respiratory failure with hypoxia Plan Ms. Moctezuma is a 55-year-old female significant smoking history, diagnosis of COPD, at baseline on 2 L nasal cannula oxygen supplementation, using Trelegy 200 inhaler, presented with worsening respiratory distress and pulmonary was called for further evaluation and management. She was recently seen in the ER for worsening respiratory distress and worsening itching after painful bowel patient received morphine, discharged home on doxycycline Augmentin and prednisone. Patient family also admits frequent respiratory infections 3-4 times so far this year. She was recently seen in the ER for worsening respiratory distress and worsening itching after painful bowel patient received morphine, discharged home on doxycycline Augmentin and prednisone. Patient family also admits frequent respiratory infections 3-4 times so far this year. Afebrile. Hemodynamically stable. Neutrophilic, leukocytosis improving. Comprehensive respiratory viral PCR panel negative. CTA PE protocol upon admission no pulmonary embolism. Bilateral diffuse patchy infiltrates. Bilateral Hilar lymphadenopathy with pressure component on the bronchi with pinhole right BI and Left left lower lobe bronchus. No prior CT chest available for review. Echocardiogram at this admission normal LV systolic function, hyperdynamic. Increased LV wall thickness. RV size and function within normal limits. Received vancomycin and Zosyn in the ER. Currently receiving ceftriaxone and azithromycin but also receiving steroids DuoNebs and Pulmicort. On examination mild respiratory distress. No significant wheezing appreciated. At baseline 2 L nasal cannula oxygen supplementation. Plan: Incentive spirometry and flutter valve Continue DuoNebs every 6 hours along with Pulmicort Q12 scheduled Sputum Gram stain culture sensitivities Continue ceftriaxone and azithromycin Continue oxygen supplementation to maintain O2 saturation goal of 90% and above
[2025-09-02 10:27] LABS: NT Pro Brain Natriuretic Pep. 1370 pg/mL (0-125)
--- NOTE | 2025-09-02 11:09 | CA_ITS ---
APPROVED REPORT EXAM: Comprehensive 2D, Doppler, and color-flow Echocardiogram Tie Maker: Alejandra Huynh CRT Ht: 5 ft 2 in Wt: 188lbs BSA: 1.86 BP: 102/72 mmHg Indications: Congestive Heart Failure, COPD, Diabetes, Hyperlipidemia, Hypertension/HDD, Home o2, AMS, fever, smoker 2D Dimensions LA Volume 19.50 mL LA Volume Index 10.20 mL/m2 (M/F) 16-34 M-Mode Dimensions RVDd 1.87 cm (0.9-2.6) LA Diam 2.93 cm (1.9-4.0) LVDd 4.06 cm (3.5-5.7) LVDs 2.53 cm (3.5-5.7) IVSd 1.06 cm (0.6-1.1) PWd 0.44 cm (0.6-1.1) EF (Teich) 68.30% FS 37.70% EDV (Teich) 72.50 mL TAPSE 2.10 (<1.7) ESV (Teich) 23.00 mL LV Diastology E Decel Time 103 (160-240 msec) E/A Ratio 0.98 MED A' 11.70 cm/s LAT A' 11.40 cm/s Aortic Valve AO Peak GR. 7.80 mmHg Mitral Valve MV E Max Gian. 89.0 (40-130 cm/s) MV A Velocity 91.0 (40-130 cm/s) E/A Ratio 0.98 MV PHT 30.0 ms Tricuspid Valve TR P. Velocity 112.00 cm/s RAP Estimate 10.00 mmHg RVSP 15.10 mmHg Left Ventricle The left ventricle is normal size. Left ventricular systolic function is hyperdynamic. There is increased left ventricular wall thickness. The left ventricular diastolic function is normal. LVEF is 70%. Right Ventricle The right ventricle is normal size. The right ventricular systolic function is normal. Atria The left atrium size is normal. The right atrium size is normal. There is no color Doppler evidence of interatrial shunt. Aortic Valve The aortic valve is mildly thickened. There is no hemodynamically significant aortic valvular stenosis. No aortic regurgitation is present. Mitral Valve The mitral valve is normal in structure. No evidence of mitral valve stenosis. Trace mitral regurgitation is present. Tricuspid Valve The tricuspid valve leaflets are thin and pliable. Trace tricuspid regurgitation. There is insufficient TR jet to estimate RVSP. Pulmonic Valve The pulmonary valve is grossly normal in structure. Trace pulmonic valve regurgitation is present. Great Vessels The aortic root is normal in size. IVC is normal in size and collapses >50% with inspiration. Pericardium There is no pericardial effusion. Other Information Study Quality: Fair Conclusion Hyperdynamic LV systolic function (LVEF 70%). No significant valvular stenosis or regurgitation. Electronically signed by : Shonda Guillermo MD 09/02/2025 12:58:16
[2025-09-02] MEDS: FUROSEMIDE 40MG/4ML VIAL 40 MG IV (11:25)
[2025-09-02 11:26] LABS: POC Glucose,Bedside 212 gm/dL (70-110)
[2025-09-02] MEDS: humaLOG 100 UNITS/ML 10ML VIAL (SSI) SUBCUT ×3 (11:27→20:34)
[2025-09-02] MEDS: SODIUM CHLORIDE 3% 15ML NEB 3 ML IH (11:58)
--- NOTE | 2025-09-02 15:40 | PC.NURSE ---
Pt is currently resting in bed. Currently on 2L NC. She is A&Ox3 this afternoon. Was more confused this AM. F/C was DC. Pt is voiding well. 1400 ml thus far. Pt was given bumex this shift. No complaints. Call lght within reach. Safety measures in place.
[2025-09-02] MEDS: AZITHROMYCIN 500 MG in 0.9 % SODIUM CHLORIDE 250 ML 250 MG IV (16:11)
--- NOTE | 2025-09-02 16:44 | EXP.PN ---
Subjective *Date: 09/03/25 *Time: 16:44 Interval history: Patient is intermittently confused, almost childlike. But improving. Exam Data for Last 24 hours Vital signs and Labs for Last 24 Hours: Temp Pulse Resp BP Pulse Ox O2 Del Method O2 Flow Rate 98.7 F 75 18 107/60 L 97 Nasal Cannula 2 09/03/25 12:00 09/03/25 12:00 09/03/25 12:00 09/03/25 12:00 09/03/25 12:00 09/03/25 15:00 09/03/25 15:00 Laboratory Results - last 24 hr 09/02/25 16:52: POC Glucose 222 H 09/03/25 06:05: WBC 7.5, RBC 3.48 L, Hgb 9.7 L, Hct 31.1 L, MCV 89.4, MCH 27.9, MCHC 31.2 L, RDW 13.0, Plt Count 148, MPV 11.0 H, Neut % (Auto) 78.8, Lymph % (Auto) 13.4, [place] % (Auto) 6.0, Eos % (Auto) 0.0 L, Baso % (Auto) 0.1, Neut # (Auto) 5.9, Lymph # (Auto) 1.0, [place] # (Auto) 0.5, Eos # (Auto) 0.0, Baso # (Auto) 0.0, Sodium 140, Potassium 3.9, Chloride 98, Carbon Dioxide 36 H, Anion Gap 9.9, BUN 13 D, Creatinine 0.60, Estimated Creat Clear 139, Estimated GFR 103, Est GFR ( Amer) 125, Glucose 195 H, Calcium 8.1 L, Lactate Dehydrogenase 269 L, C-Reactive Protein 97.1 H, Procalcitonin 0.058 I & O for Last 24 hours: Intake & Output 08/31/25 09/01/25 09/02/25 09/03/25 23:59 23:59 23:59 23:59 Intake Total 350 / 350 5370 / 5370 780 / 780 Output Total 700 / 1050 3395 / 3395 0 / 0 Balance -350 / -700 1974 / 1974 780 / 780 Weight 85.4 kg 85.4 kg 83.915 kg Microbiology Reports for the Last 24 Hours: Microbiology 09/01/25 19:21 Urine,Catheterized Urine Culture - Final No growth. 09/01/25 19:41 Blood Blood Culture - Preliminary NO GROWTH AFTER 24 HOURS 09/01/25 19:15 Blood Blood Culture - Preliminary NO GROWTH AFTER 24 HOURS Constitutional Constitutional: no acute distress and chronically ill appearing *Routine HEENT Exam Head: Present normocephalic Eye: Present EOMI and PERRL ENT: Present mucous membranes moist *Routine Neck Exam Neck: Present supple; Absent lymphadenopathy *Routine Respiratory Exam Respiratory: Present CTA bilaterally *Routine Cardiovascular Exam Cardiovascular: Present RRR *Routine Abdominal Exam Abdominal: Present soft and normoactive bowel sounds; Absent tenderness *Routine Extremities Exam Extremities: Present edema; Absent cyanosis or clubbing *Routine Skin Exam Skin: Present warm; Absent rash *Routine Neurological Exam Neurological: Present alert Assessment and Plan *Assessment and plan (1) Multifocal pneumonia: Status: Acute Category: Medical Code(s): J18.8 - Other pneumonia, unspecified organism Plan Coretta Moctezuma is a 55-year-old female who presented with altered mentation and was admitted for acute metabolic encephalopathy secondary to pneumonia. #Acute metabolic encephalopathy, improving #Community-acquired pneumonia #Sepsis ? Presented with altered mentation, CTA chest revealing patchy ground glass opacities suggestive of pneumonia. ? Met sepsis criteria with WBC 14, tachycardia. ? Patient is intermittently confused, almost childlike. But improving. ? Continue IV ceftriaxone, azithromycin. ? Follow-up blood, sputum cultures. ? Continue home 2 L nasal cannula. #HFpEF ? Seems fluid overloaded at this time, given IV Lasix 40 mg once. Improved edema into the afternoon. #Anxiety/depression ? Continue home BuSpar, diazepam, paroxetine, zolpidem. #GERD ? Continue PPI. #Type 2 diabetes ? LDSSI, ACHS glucose checks. Full code DVT prophylaxis: Lovenox 40 mg
[2025-09-02 18:12] LABS: POC Glucose,Bedside 222 gm/dL (70-110)
--- NOTE | 2025-09-02 18:45 | PC.NURSE ---
arrived by w/c from ICU
[2025-09-03] VITALS (8 sets, daily range): BP systolic 107–160; BP diastolic 60–96; PULSE 56–113; RESP 14–18; TEMP 36.5–37.1; O2SAT 94–100; BMI 32.8
[2025-09-03] MEDS: OLANZapine 5 MG ODT TABLET 10 MG SL (00:13)
[2025-09-03] MEDS: IPRATROPIUM/ALBUTEROL 3 ML NEB IH ×2 (00:24→06:13)
[2025-09-03] MEDS: BUDESONIDE 0.5MG/2ML NEB 0.5 MG IH (06:13)
[2025-09-03] MEDS: humaLOG 100 UNITS/ML 10ML VIAL (SSI) SUBCUT ×3 (06:18→20:22)
[2025-09-03 06:34] LABS: Hematocrit 31.1 % (37.0-47.0); Hemoglobin 9.7 g/dL (12.2-16.2); Immature Granulocytes % 1.7 %; Mean Corpuscular HGB Conc 31.2 g/dL (31.8-35.4); Mean Corpuscular Hemoglobin 27.9 pg (27.0-31.2); Mean Corpuscular Volume 89.4 fl (81-99); Nucleated Red Blood Cells % 0 %; Platelet Count 148 K/mm3 (142-424); Red Blood Count 3.48 M/mm3 (4.20-5.40); Red Cell Distribution Width-SD 41.9 fL; White Blood Count 7.5 K/mm3 (4.8-10.8)
[2025-09-03 06:46] LABS: Anion Gap 9.9 mEq/L (5-15); Blood Urea Nitrogen 13 mg/dl (7-17); Calcium 8.1 mg/dl (8.4-10.2); Carbon Dioxide 36 mmol/L (22.0-30.0); Chloride 98 mmol/L (98-107); Creatinine Clearance Estimated 139 mL/min (50-200); Creatinine,Serum 0.60 mg/dl (0.52-1.04); Estimated Glomerular Filt Rate 103 ml/min (>60); GFR (African American) 125 ML/MIN (>60); Glucose 195 mg/dl (74-100); Potassium 3.9 mmoL/L (3.5-5.1); Sodium 140 mmol/L (136-145)
[2025-09-03 07:09] LABS: C-Reactive Protein 97.1 mg/L (0-4)
[2025-09-03 07:21] LABS: Procalcitonin 0.058 ng/mL (0.0-2.0)
[2025-09-03] MEDS: METHYLPREDNISOLONE SOD SUCC 40MG VIAL 40 MG IV ×2 (09:15→21:26)
[2025-09-03] MEDS: CEFTRIAXONE 1 GM 1 GM in 0.9 % SODIUM CHLORIDE 50 ML IV (09:15)
[2025-09-03] MEDS: DOCUSATE SODIUM 250MG CAPSULE 250 MG PO (09:16)
[2025-09-03] MEDS: ACETAMINOPHEN 325MG TAB 650 MG PO ×2 (09:25→22:38)
--- NOTE | 2025-09-03 12:07 | P.PN_ITS ---
Subjective *Date: 09/03/25 *Time: 12:07 Interval history: No acute respiratory events overnight. Patient denies any new respiratory complaints Pulmonology Exam Inpatient Vital signs and Labs for Last 24 Hours: Temp Pulse Resp BP Pulse Ox O2 Del Method O2 Flow Rate 97.7 F 61 16 126/69 94 L Nasal Cannula 2 09/03/25 07:44 09/03/25 07:44 09/03/25 07:44 09/03/25 07:44 09/03/25 07:44 09/03/25 09:00 09/03/25 09:00 Laboratory Results - last 24 hr 09/02/25 16:52: POC Glucose 222 H 09/03/25 06:05: WBC 7.5, RBC 3.48 L, Hgb 9.7 L, Hct 31.1 L, MCV 89.4, MCH 27.9, MCHC 31.2 L, RDW 13.0, Plt Count 148, MPV 11.0 H, Neut % (Auto) 78.8, Lymph % (Auto) 13.4, [place] % (Auto) 6.0, Eos % (Auto) 0.0 L, Baso % (Auto) 0.1, Neut # (Auto) 5.9, Lymph # (Auto) 1.0, [place] # (Auto) 0.5, Eos # (Auto) 0.0, Baso # (Auto) 0.0, Sodium 140, Potassium 3.9, Chloride 98, Carbon Dioxide 36 H, Anion Gap 9.9, BUN 13 D, Creatinine 0.60, Estimated Creat Clear 139, Estimated GFR 103, Est GFR ( Amer) 125, Glucose 195 H, Calcium 8.1 L, Lactate Dehydrogenase 269 L, C-Reactive Protein 97.1 H, Procalcitonin 0.058 Temp Pulse Resp BP Pulse Ox O2 Del Method O2 Flow Rate 100.0 F H 100 H 12 100/60 L 92 L Nasal Cannula 2 09/02/25 08:01 09/02/25 08:59 09/02/25 06:00 09/02/25 08:01 09/02/25 08:09 09/02/25 09:00 09/02/25 09:00 Laboratory Results - last 24 hr 09/01/25 19:09: WBC 14.4 H, RBC 3.84 L, Hgb 10.9 L, Hct 32.8 L, MCV 85.4, MCH 28.4, MCHC 33.2, RDW 12.7, Plt Count 215, MPV 11.5 H, Neut % (Auto) 60.0, Lymph % (Auto) 23.1, [place] % (Auto) 14.2 H, Eos % (Auto) 1.3, Baso % (Auto) 0.4, Neut # (Auto) 8.6 H, Lymph # (Auto) 3.3, [place] # (Auto) 2.0 H, Eos # (Auto) 0.2, Baso # (Auto) 0.1, Total Counted 100, Neutrophils % (Manual) 70, Lymphocytes % (Manual) 24, Monocytes % (Manual) 4, Eosinophils % (Manual) 1, Basophils % (Manual) 1.0, Platelet Estimate Normal, RBC Morphology Normal, Sodium 132 L, Potassium 4.2, Chloride 91 L, Carbon Dioxide 34 H, Anion Gap 11.2, BUN 16, Creatinine 0.70, Estimated Creat Clear 116, Estimated GFR 87, Est GFR ( Amer) 105, Glucose 91, Calcium 8.9, Total Bilirubin 1.0, AST 83 H, ALT 44, Alkaline Phosphatase 106, C-Reactive Protein 85.1 H, Total Protein 6.2 L, Albumin 3.9, Globulin 2.3, Albumin/Globulin Ratio 1.7, Procalcitonin 0.111 09/01/25 19:13: VBG pH 7.45 H, VBG pCO2 42.7, VBG pO2 135.7 H, VBG HCO3 28.9, VBG Total CO2 30.3 H, VBG O2 Saturation 98.5 H, VBG Base Excess 4.9 H, VBG Lactic Acid 2.1 H 09/01/25 19:21: Urine Color Yellow, Urine Appearance Clear, Urine pH 6.0, Ur Specific [place] 1.010, Urine Protein Negative, Urine Glucose (UA) Negative, Urine Ketones Negative, Urine Blood Negative, Urine Nitrate Negative, Urine Bilirubin Negative, Urine Urobilinogen 0.2, Ur Leukocyte Esterase Negative, Urine RBC Occasional, Urine WBC Occasional, Ur Squamous Epith Cells 3-5, Urine Bacteria Trace, Urine Opiates Screen Negative, Urine Methadone Screen Negative, Ur Barbituates Screen Negative, Ur Phencyclidine Scrn Negative, Ur Amphetamines Screen Negative, U Benzodiazepines Scrn Positive H, Urine Cocaine Screen Negative, U Marijuana (THC) Screen Negative 09/01/25 19:28: Chlamy pneumoniae PCR Not detected, Adenovirus (PCR) Not detected, B. pertussis DNA (PCR) Not detected, Coronavirus OC43 (PCR) Not detected, Coronavirus HKU1 (PCR) Not detected, Coronavirus 229E (PCR) Not detected, SARS-CoV-2 (PCR) Not detected, Coronavirus NL63 (PCR) Not detected, Human Metapneumovir PCR Not detected, Influenza A (H1) PCR Not detected, Influ A (H1N1/09) PCR Not detected, Influenza A (H3) PCR Not detected, Influenza Type A (PCR) Not detected, Influenza Type B (PCR) Not detected, M. pneumoniae (PCR) Not detected, Parainfluenza 1 (PCR) Not detected, Parainfluenza 2 (PCR) Not detected, Parainfluenza 3 (PCR) Not detected, Parainfluenza 4 (PCR) Not det ected, RSV (PCR) Not detected, Entero/Rhino (PCR) Not detected 09/01/25 23:45: Lactate 2.2 H 09/02/25 01:15: Lactate 1.8 09/02/25 05:15: WBC 9.4 D, RBC 3.71 L, Hgb 10.4 L, Hct 32.2 L, MCV 86.8, MCH 28.0, MCHC 32.3, RDW 12.8, Plt Count 179, MPV 11.3 H, Neut % (Auto) 62.1, Lymph % (Auto) 21.3, [place] % (Auto) 12.4 H, Eos % (Auto) 2.5, Baso % (Auto) 0.6, Neut # (Auto) 5.8, Lymph # (Auto) 2.0, [place] # (Auto) 1.2 H, Eos # (Auto) 0.2, Baso # (Auto) 0.1, Sodium 136, Potassium 4.0, Chloride 97 L, Carbon Dioxide 35 H, Anion Gap 8.0, BUN 10 D, Creatinine 0.50 L D, Estimated Creat Clear 169, Estimated GFR 128, Est GFR ( Amer) 154 D, Glucose 90, Calcium 8.5, Procalcitonin 0.116 09/02/25 05:56: POC Glucose 136 H I & O for Labs for Last 24 Hours: Intake & Output 08/31/25 09/01/25 09/02/25 09/03/25 23:59 23:59 23:59 23:59 Intake Total 350 / 350 5370 / 5370 300 / 300 Output Total 700 / 1050 3395 / 3395 0 / 0 Balance -350 / -700 1974 / 1974 300 / 300 Weight 188 lb 4.396 oz 188 lb 4.396 oz 185 lb Intake & Output 08/30/25 08/31/25 09/01/25 09/02/25 23:59 23:59 23:59 23:59 Intake Total 350 / 350 3700 / 3700 Output Total 700 / 1050 1145 / 1145 Balance -350 / -700 2555 / 2555 Weight 188 lb 4.396 oz 188 lb 4.396 oz Microbiology Reports for the Last 24 Hours: Microbiology 09/01/25 19:21 Urine,Catheterized Urine Culture - Final No growth. 09/01/25 19:41 Blood Blood Culture - Preliminary NO GROWTH AFTER 24 HOURS 09/01/25 19:15 Blood Blood Culture - Preliminary NO GROWTH AFTER 24 HOURS Constitutional: Present moderate distress Head: Present normocephalic and atraumatic ENT: Present normal exam, normal oropharynx and mucous membranes moist Neck: Present normal inspection and full ROM Respiratory: Present prolonged expiratory phase, rhonchi, crackles and able to speak in complete sentences; Absent wheezes Cardiac: Present S1/S2, Tachycardia and radial pulses present GI: Present soft and distention; Absent tenderness or guarding Rectal (female): Present deferred (female): Present deferred Skin: Present intact; Absent cyanosis or jaundice Neuro: Present alert, awake and oriented x 3 Extremities: Present normal inspection; Absent clubbing or cyanosis Psychiatric: Present cooperative and depressed Assessment and Plan *Assessment and plan (1) Pneumonia: Status: Acute Qualifiers: Laterality: bilateral Lung location: unspecified part of lung Pneumonia type: due to unspecified organism Qualified Code(s): J18.9 - Pneumonia, unspecified organism Category: Medical Code(s): J18.9 - Pneumonia, unspecified organism (2) Acute on chronic hypoxic respiratory failure: Status: Acute Category: Medical Code(s): J96.21 - Acute and chronic respiratory failure with hypoxia Plan Ms. Moctezuma is a 55-year-old female significant smoking history, diagnosis of COPD, at baseline on 2 L nasal cannula oxygen supplementation, using Trelegy 200 inhaler, presented with worsening respiratory distress and pulmonary was called for further evaluation and management. She was recently seen in the ER for worsening respiratory distress and worsening itching after painful bowel patient received morphine, discharged home on doxycycline Augmentin and prednisone. Patient family also admits frequent respiratory infections 3-4 times so far this year. She was recently seen in the ER for worsening respiratory distress and worsening itching after painful bowel patient received morphine, discharged home on doxycycline Augmentin and prednisone. Patient family also admits frequent respiratory infections 3-4 times so far this year. Afebrile. Hemodynamically stable. Neutrophilic, leukocytosis improving. Comprehensive respiratory viral PCR panel negative. CTA PE protocol upon admission no pulmonary embolism. Bilateral diffuse patchy infiltrates. Bilateral Hilar lymphadenopathy with pressure component on the bronchi with pinhole right BI and Left left lower lobe bronchus. No prior CT chest available for review. Echocardiogram at this admission normal LV systolic function, hyperdynamic. Increased LV wall thickness. RV size and function within normal limits. Received vancomycin and Zosyn in the ER. Currently receiving ceftriaxone and azithromycin but also receiving steroids DuoNebs and Pulmicort. Interval update: Patient admits continued improvement in her respiratory symptoms. Continue weaning oxygen supplementation 1 to 2 L, 2 L this morning at 96%. No significant wheezing noted on auscultation. On examination mild respiratory distress. No significant wheezing appreciated. At baseline 2 L nasal cannula oxygen supplementation. Blood cultures no growth 24 hours. Sputum induction with no optimal sample yesterday. Will continue to follow. Plan: Trelegy 200 inhaler along with DuoNebs 4 times daily as needed Incentive spirometry and flutter valve Continue ceftriaxone and azithromycin Continue oxygen supplementation to maintain O2 saturation goal of 90% and above # For the noted bilateral lymphadenopathy with extensive compression of bilateral airways, will follow as an outpatient basis with repeat CT chest before proceeding with EBUS FNA. # Thank you for involving pulmonary in this patient care. Will continue to follow.
--- NOTE | 2025-09-03 13:37 | EXP.DC.SUM ---
General Admission date:: 09/01/25 HPI HPI HPI: This is a 55-year-old female who has a past medical history significant for diabetes, COPD with home O2 dependency at 2 L, obstructive sleep apnea, hyperlipidemia, hypertension, lumbar radiculopathy, and neuropathy who presents with a chief complaint of altered mental status. Due to patient's altered mental status, her review of systems is limited; as a result, the majority of information was obtained from ER provider, chart review, and mother at the bedside. According to ER provider, EMS was contacted and presented to patient's home where they found patient was hypoxic with room air saturations at 70%-patient was not wearing her prescribed supplemental oxygen. EMS gave patient a DuoNeb and placed supplemental oxygen on patient. Moreover, EMS reports patient systolic blood pressure was in the 70s. They gave 250 mL bolus and transition patient to [facility] for further management. While in the emergency room, CT scan of the head was positive for multiple lobular pneumonia-is pending final read by radiologist. CT scan of the head was negative for any acute intracranial process per my independent read-is pending final read by radiologist. Patient was meeting sepsis criteria, so she has been admitted for further management. During my evaluation of the patient, patient responded to painful stimuli only-she could provide no meaningful data. I spoke with mom at the bedside who states that patient has been sick since Sunday. She was prescribed doxycycline. Unfortunately, patient did not take her first dose of doxycycline until last night. Mother states that patient called her yesterday into the room and asked her if she hit her some music playing. Her mother states that she inform her know she did not hear music playing however she informed her that she was wheezing pretty loud. Mother reports that patient has been treated for pneumonia on multiple occasions. She was hospitalized at a hospital in [place]. She also her that her daughter has a diagnosis of obstructive sleep apnea and unfortunately she could not find a device to wear it that would make her be compliant., So she has been without a CPAP since diagnosis-2010. Mother states that patient's confusion started yesterday as well. Patient stopped smoking in November of this year; however, mom states she has been finding evidence of patient's continued smoking. Additional pertinent values obtained include a white blood cell count of 14.4, Luy[place] count of 3.84, hemoglobin 10.9, hematocrit 32.8, sodium 132, chloride of 91, carbon oxide of 34, AST of 83, and C-reactive protein 85.1. Hospital Course Hospital Course Hospital Course: Coretta Moctezuma is a 55-year-old female who presented with altered mentation and was admitted for acute metabolic encephalopathy secondary to pneumonia. #Acute metabolic encephalopathy, improving #Community-acquired pneumonia #Sepsis ? Presented with altered mentation, CTA chest revealing patchy ground glass opacities suggestive of pneumonia. ? Met sepsis criteria with WBC 14, tachycardia. WBC normalized to 7.5, tachycardia resolved. ? Clinically improved with IV ceftriaxone, azithromycin. Mentation significantly improved, alert and oriented and very pleasant. ? Patient unable to produce much sputum, blood cultures NGTD. ? Discussed with pulmonology, will treat with empiric levofloxacin 750 mg daily for 4 more days. ? Continue home 2 L nasal cannula. PT/OT evaluated, patient able to go home without rehab needs. ? Will follow-up with pulmonology within 2 weeks. #HFpEF ? Continue home Lasix 20 mg. Euvolemic today. Required IV Lasix 40 mg one-time dose during admission. #Anxiety/depression ? Continue home BuSpar, diazepam, paroxetine, zolpidem. #GERD ? Continue PPI. #Type 2 diabetes ? Continue home metformin. Total time spent on discharge: 31 minutes on chart review, counseling, documentation, and direct care with patient. Exam Data for Last 24 hours Vital signs and Labs for Last 24 Hours: Temp Pulse Resp BP Pulse Ox O2 Del Method O2 Flow Rate 98.7 F 75 18 107/60 L 97 Nasal Cannula 2 09/03/25 12:00 09/03/25 12:00 09/03/25 12:00 09/03/25 12:00 09/03/25 12:00 09/03/25 12:00 09/03/25 12:00 Laboratory Results - last 24 hr 09/02/25 16:52: POC Glucose 222 H 09/03/25 06:05: WBC 7.5, RBC 3.48 L, Hgb 9.7 L, Hct 31.1 L, MCV 89.4, MCH 27.9, MCHC 31.2 L, RDW 13.0, Plt Count 148, MPV 11.0 H, Neut % (Auto) 78.8, Lymph % (Auto) 13.4, [place] % (Auto) 6.0, Eos % (Auto) 0.0 L, Baso % (Auto) 0.1, Neut # (Auto) 5.9, Lymph # (Auto) 1.0, [place] # (Auto) 0.5, Eos # (Auto) 0.0, Baso # (Auto) 0.0, Sodium 140, Potassium 3.9, Chloride 98, Carbon Dioxide 36 H, Anion Gap 9.9, BUN 13 D, Creatinine 0.60, Estimated Creat Clear 139, Estimated GFR 103, Est GFR ( Amer) 125, Glucose 195 H, Calcium 8.1 L, Lactate Dehydrogenase 269 L, C-Reactive Protein 97.1 H, Procalcitonin 0.058 I & O for Last 24 hours: Intake & Output 08/31/25 09/01/25 09/02/25 09/03/25 23:59 23:59 23:59 23:59 Intake Total 350 / 350 5370 / 5370 780 / 780 Output Total 700 / 1050 3395 / 3395 0 / 0 Balance -350 / -700 1974 / 1974 780 / 780 Weight 85.4 kg 85.4 kg 83.915 kg Microbiology Reports for the Last 24 Hours: Microbiology 09/01/25 19:21 Urine,Catheterized Urine Culture - Final No growth. 09/01/25 19:41 Blood Blood Culture - Preliminary NO GROWTH AFTER 24 HOURS 09/01/25 19:15 Blood Blood Culture - Preliminary NO GROWTH AFTER 24 HOURS Constitutional Constitutional: no acute distress *Routine HEENT Exam Head: Present normocephalic Eye: Present EOMI and PERRL ENT: Present mucous membranes moist *Routine Neck Exam Neck: Present supple; Absent lymphadenopathy *Routine Respiratory Exam Respiratory: Present CTA bilaterally *Routine Cardiovascular Exam Cardiovascular: Present RRR *Routine Abdominal Exam Abdominal: Present soft and normoactive bowel sounds; Absent tenderness *Routine Extremities Exam Extremities: Absent cyanosis, clubbing or edema *Routine Skin Exam Skin: Present warm; Absent rash *Routine Neurological Exam Neurological: Present alert and oriented X3 Results Data Completed and Pending Labs on day of discharge: Labs from last 24 hours 09/03/25 09/02/25 06:05 16:52 WBC 7.5 RBC 3.48 L Hgb 9.7 L Hct 31.1 L MCV 89.4 MCH 27.9 MCHC 31.2 L RDW 13.0 Plt Count 148 MPV 11.0 H Neut % (Auto) 78.8 Lymph % (Auto) 13.4 [place] % (Auto) 6.0 Eos % (Auto) 0.0 L Baso % (Auto) 0.1 Neut # (Auto) 5.9 Lymph # (Auto) 1.0 [place] # (Auto) 0.5 Eos # (Auto) 0.0 Baso # (Auto) 0.0 Sodium 140 Potassium 3.9 Chloride 98 Carbon Dioxide 36 H Anion Gap 9.9 BUN 13 D Creatinine 0.60 Estimated Creat Clear 139 Estimated GFR 103 Est GFR ( Amer) 125 Glucose 195 H POC Glucose 222 H Calcium 8.1 L Lactate Dehydrogenase 269 L C-Reactive Protein 97.1 H Procalcitonin 0.058 Preliminary micro results at discharge 09/01/25 19:41 Blood Culture - Preliminary Blood NO GROWTH AFTER 24 HOURS 09/01/25 19:15 Blood Culture - Preliminary Blood NO GROWTH AFTER 24 HOURS DS: Diagnosis Discharge Diagnosis (1) Pneumonia: Status: Acute Code(s): J18.9 - Pneumonia, unspecified organism Qualifiers: Laterality: bilateral Lung location: unspecified part of lung Pneumonia type: due to unspecified organism Qualified Code(s): J18.9 - Pneumonia, unspecified organism (2) Acute on chronic hypoxic respiratory failure: Status: Acute Code(s): J96.21 - Acute and chronic respiratory failure with hypoxia Meds Home Medications and Allergies Home Medications ?Medication ?Instructions ?Recorded ?Confirmed ?Type montelukast 10 mg tablet 10 mg PO HS 05/12/21 09/02/25 History pantoprazole 40 mg tablet,delayed 40 mg PO DAILY 07/07/21 09/02/25 History release aspirin 81 mg tablet,delayed 81 mg PO DAILY 03/23/22 09/02/25 History release metformin 500 mg tablet 500 mg PO DAILY 08/03/22 09/02/25 History pravastatin 40 mg tablet 40 mg PO DAILY 08/21/22 09/02/25 History fluticasone fur. 200 mcg-umeclid 1 inh inhalation DAILY 01/07/24 09/02/25 History 62.5 mcg-vilant 25 mcg inhalat.powder (Trelegy Ellipta) pregabalin 150 mg capsule (Lyrica) 150 mg PO TID #90 caps 08/28/25 09/02/25 Rx buspirone 15 mg tablet 15 mg PO BID 09/02/25 09/02/25 History diazepam 5 mg tablet 5 mg PO DAILY 09/02/25 09/02/25 History duloxetine 60 mg capsule,delayed 60 mg PO DAILY 09/02/25 09/02/25 History release estradiol 0.01% (0.1 mg/gram) 2 g vaginal DAILY 09/02/25 09/02/25 History vaginal cream fluticasone propionate 50 2 spray intranasal DAILY 09/02/25 09/02/25 History mcg/actuation nasal spray,suspension furosemide 20 mg tablet 20 mg PO DAILY 09/02/25 09/02/25 History paroxetine HCl 10 mg tablet 10 mg PO HS 09/02/25 09/02/25 History zolpidem 10 mg tablet 10 mg PO HS 09/02/25 09/02/25 History levofloxacin 750 mg tablet 750 mg PO DAILY 4 days #4 tabs 09/03/25 Rx New Prescriptions to Start Prescriptions: Pato [place] Allergies Allergy/AdvReac Type Severity Reaction Status Date / Time Sulfa (Sulfonamide Allergy Rash Verified 08/28/25 13:02 Antibiotics) Discharge Plan Disposition Patient Disposition: Home, Self-Care Condition: Fair Discharge Order Discharge Orders: Discharge Order (Routine); Ordered 09/03/25 Ordered By: Pato Stephens Follow up Plan Follow up with: Yesika Pope MD [Physician, Pulmonology] - 09/28/25 10:40 am Prescriptions/Medication Reconciliation: New levofloxacin 750 mg tablet 750 mg PO DAILY 4 Days Qty: 4 0RF Continued metformin 500 mg tablet 500 mg PO DAILY pravastatin 40 mg tablet 40 mg PO DAILY aspirin 81 mg tablet,delayed release (DR/EC) 81 mg PO DAILY Trelegy Ellipta 200-62.5-25 mcg blister with device 1 inh inhalation DAILY Patient Comments: INHALE 1 PUFF BY MOUTH EVERY DAY pregabalin [Lyrica] 150 mg capsule 150 mg PO TID Qty: 90 2RF montelukast 10 MG tablet 10 mg PO HS pantoprazole 40 mg tablet,delayed release (DR/EC) 40 mg PO DAILY paroxetine HCl 10 mg tablet 10 mg PO HS Patient Comments: TAKE 1 TABLET BY MOUTH EVERY DAY IN THE EVENING FOR MOOD furosemide 20 mg tablet 20 mg PO DAILY Patient Comments: TAKE 1 TABLET BY MOUTH EVERY DAY estradiol 0.01 % (0.1 mg/gram) cream 2 g VAGINAL DAILY Patient Comments: INSERT 2 GRAMS VAGINALLY DAILY zolpidem 10 mg tablet 10 mg PO HS fluticasone propionate 50 mcg/actuation spray,suspension 2 spray INTRANASAL DAILY Patient Comments: SHAKE LIQUID AND USE 2 SPRAYS IN EACH NOSTRIL DAILY DIRECTED diazepam 5 mg tablet 5 mg PO DAILY Patient Comments: TAKE 1 TABLET BY MOUTH EVERY DAY buspirone 15 mg tablet 15 mg PO BID Patient Comments: TAKE 1 TABLET BY MOUTH TWICE DAILY DIRECTED FOR ANXIETY duloxetine 60 mg capsule,delayed release(DR/EC) 60 mg PO DAILY Patient Comments: TAKE 1 CAPSULE BY MOUTH EVERY DAY IN THE MORNING FOR MOOD Discontinued amoxicillin-pot clavulanate 875-125 mg tablet 1 tab PO BID 7 Days Qty: 14 0RF doxycycline hyclate 100 mg capsule 100 mg PO BID 7 Days Qty: 14 0RF prednisone 20 mg tablet 40 mg PO DAILY 5 Days Qty: 10 0RF Problem Reconciliation Problems Reviewed?: Yes Patient Discharge Instructions Print Language: Palestinian Providers Primary Care Provider: Provider,Referral Admit Provider: Pato Stephens Attending Provider: Pato Stephens
--- NOTE | 2025-09-03 14:07 | HMH.OTEV ---
OT Evaluation Rehab OT IP Evaluation Start: 09/03/25 10:44 Freq: ONCE Status: Active Protocol: Document 09/03/25 14:03 TORI (Rec: 09/03/25 14:06 [facility] [id number]) Rehab OT IP Assessment Subjective History Pt oriented x 2 on arrival. Pt agreeable to engage in therapy evaluation. Pt admitted on 09/01/25 due to AMS, PNA, and sepsis. History and physical: This is a 55-year-old female who has a past medical history significant for diabetes, COPD with home O2 dependency at 2 L, obstructive sleep apnea, hyperlipidemia, hypertension, lumbar radiculopathy, and neuropathy who presents with a chief complaint of altered mental status. Due to patient's altered mental status, her review of systems is limited; as a result, the majority of information was obtained from ER provider, chart review, and mother at the bedside. According to ER provider, EMS was contacted and presented to patient's home where they found patient was hypoxic with room air saturations at 70%-patient was not wearing her prescribed supplemental oxygen. EMS gave patient a DuoNeb and placed supplemental oxygen on patient. Moreover, EMS reports patient systolic blood pressure was in the 70s. They gave 250 mL bolus and transition patient to [facility] for further management. While in the emergency room, CT scan of the head was positive for multiple lobular pneumonia-is pending final read by radiologist. CT scan of the head was negative for any acute intracranial process per my independent read-is pending final read by radiologist. Patient was meeting sepsis criteria, so she has been admitted for further management. Subjective Pt reports prior to being in the hospital, pt lived at home with her mother. Pt claims normally she is independent with all ADLs. She does depend on her mother for completion of all IADLs. Pt no longer drives. Pt does not use a rolling walker or cane during functional transfers. Objective Patient Orientation Person,Birthday Right Upper WFL Extremity Gross ROM Left Upper Extremity WFL Gross ROM Bed Mobility bed mobility-scooting,bed mobility - supine/sit Assist Level Supervision/Stand by Transfer Training Sit/Stand Transfer Assist Level Supervision/Stand by Chair Transfer Supervision/Stand by Ability Chair Transfer Sit to/from Ambulatory Technique Chair Transfer None Assistive Devices Lower Body Dressing Standby Assistance Ability Performing Toilet Standby Assistance Hygiene Ability Overall Commode/ Standby Assistance Toilet Transfer Ability Commode/Toilet Sit to/from Ambulatory Transfer Technique Commode/Toilet Grab Bars Transfer Assistive Devices Rehab OT IP prob,goals,plan Problems Date of Evaluation: 09/03/25 Rehab Potential Rehab Potential Innapropriate for Skilled Therapy Discharge Plan OT Discharge Plan Pt appears to be at her baseline with functional transfers and ADL independence. Pt can return home with mother's assistance as needed once she is medically stable per physician. Eval Complexity Eval Charge Codes 24657 - Moderate Complexity PHYSICIAN CERTIFICATION: I certify the specified therapy services for Coretta Moctezuma are required, authorized, and reviewed every 30 days.
[2025-09-03 17:02] LABS: POC Glucose,Bedside 200 gm/dL (70-110)
[2025-09-03] MEDS: FUROSEMIDE 20MG TABLET 20 MG PO (18:46)
[2025-09-03] MEDS: PATIENT'S OWN HOME MEDICATION (Buspirone 15 mg tablet) 15 EACH PO (18:46)
[2025-09-03] MEDS: AZITHROMYCIN 500 MG in 0.9 % SODIUM CHLORIDE 250 ML 250 MG IV (18:47)
[2025-09-03] MEDS: PANTOPRAZOLE 40MG TABLET 40 MG PO (18:47)
--- NOTE | 2025-09-03 18:54 | PC.NURSE ---
Pt is more confused this evening. MD aware. New meds ordered. Pt given shower. Call light within reach. Safety measures in place.
[2025-09-03 20:23] LABS: POC Glucose,Bedside 182 gm/dL (70-110)
[2025-09-03] MEDS: PREGABALIN 50MG CAPSULE 150 MG PO (20:24)
[2025-09-03] MEDS: diazePAM 5MG TABLET 5 MG PO (20:24)
[2025-09-03 21:23] LABS: POC Glucose,Bedside 143 gm/dL (70-110)
[2025-09-04] VITALS: BP 134/64; PULSE 74; RESP 18; TEMP 36.6; O2SAT 99
[2025-09-04 04:00] VITALS: BP 163/84; PULSE 72; RESP 16; TEMP 36.6; O2SAT 97; BMI 32.9
[2025-09-04 05:12] VITALS: PULSE 75; PULSE 80; O2SAT 97
[2025-09-04] MEDS: IPRATROPIUM/ALBUTEROL 3 ML NEB IH (05:12)
[2025-09-04 06:08] LABS: POC Glucose,Bedside 172 gm/dL (70-110)
[2025-09-04] MEDS: humaLOG 100 UNITS/ML 10ML VIAL (SSI) SUBCUT (06:14)
[2025-09-04 06:26] LABS: Hematocrit 36.2 % (37.0-47.0); Immature Granulocytes % 2.7 %; Mean Corpuscular HGB Conc 31.2 g/dL (31.8-35.4); Mean Corpuscular Hemoglobin 28.0 pg (27.0-31.2); Mean Corpuscular Volume 89.6 fl (81-99); Nucleated Red Blood Cells % 0 %; Platelet Count 242 K/mm3 (142-424); Red Blood Count 4.04 M/mm3 (4.20-5.40); Red Cell Distribution Width-SD 42.4 fL; White Blood Count 15.8 K/mm3 (4.8-10.8)
[2025-09-04 06:33] LABS: Hemoglobin 11.3 g/dL (12.2-16.2)
[2025-09-04 06:51] LABS: Anion Gap 11.6 mEq/L (5-15); Blood Urea Nitrogen 13 mg/dl (7-17); Calcium 8.9 mg/dl (8.4-10.2); Carbon Dioxide 35 mmol/L (22.0-30.0); Chloride 97 mmol/L (98-107); Creatinine Clearance Estimated 119 mL/min (50-200); Creatinine,Serum 0.70 mg/dl (0.52-1.04); Estimated Glomerular Filt Rate 87 ml/min (>60); GFR (African American) 105 ML/MIN (>60); Glucose 139 mg/dl (74-100); Potassium 3.6 mmoL/L (3.5-5.1); Sodium 140 mmol/L (136-145)
--- NOTE | 2025-09-04 06:58 | PC.NURSE ---
had ordered Meds for Pt. Some Meds did not assess to being after hours. refer to the MAR. Pt is on 2L nc O2. She is confused off and on thru the night. call Light is with in reach. LOBO VALADEZ RN
[2025-09-04 07:43] VITALS: BP 150/72; PULSE 73; RESP 16; TEMP 36.4; O2SAT 100
--- NOTE | 2025-09-04 08:02 | HMH.PHAAMS2 ---
- Antimicrobial Stewardship Review 48 hour timeout review Stewardship interventions: 48 hour timeout review, reviewed - no change Comments: EMPERIC THERAPY, NO C&S AT THIS TIME culture & sensitivity review Stewardship interventions: culture & sensitivity review, reviewed - no change Comments: EMPIRIC THERAPY NO C&S AT THIS TIME
[2025-09-04] MEDS: BUSPIRONE HCL 10 MG TABLET 15 MG PO (08:16)
[2025-09-04] MEDS: PREGABALIN 50MG CAPSULE 150 MG PO (08:16)
[2025-09-04] MEDS: FUROSEMIDE 20MG TABLET 20 MG PO (08:16)
[2025-09-04] MEDS: diazePAM 5MG TABLET 5 MG PO (08:16)
[2025-09-04] MEDS: DOCUSATE SODIUM 250MG CAPSULE 250 MG PO (08:19)
[2025-09-04] MEDS: SENNA 8.6MG TABLET 8.6 MG PO (08:19)
--- NOTE | 2025-09-04 08:55 | HMH.PTEV ---
Physical Therapy Evaluation Rehab PT IP Evaluation Start: 09/03/25 10:44 Freq: ONCE Status: Active Protocol: Document 09/04/25 08:50 JESU (Rec: 09/04/25 08:55 JESU [id number]) Subjective/History History History Per H&P: Pt reports prior to being in the hospital, pt lived at home with her mother. Pt claims normally she is independent with all ADLs. She does depend on her mother for completion of all IADLs. Pt no longer drives. Pt does not use a rolling walker or cane during functional transfers. Subjective Subjective Pt reports prior to being in the hospital, pt lived at home with her mother. Pt claims normally she is independent with all ADLs. She does depend on her mother for completion of all IADLs. Pt no longer drives . Pt does not use a rolling walker or cane during functional transfers. [facility] How much help from another person do you currently need... Turning from your None back to your side while in a flat bed without using bedrails? Moving from lying on None back to sitting on the side of a flat bed without using bedrails? Moving to and from a None bed to a chair ( including a wheelchair)? Standing up from a None chair using your arms? (e.g., wheelchair, bedside chair) Walking in hospital None room? Climbing 3-5 steps A little with a railing? Mobility Score 23 Mobility Level [facility] Mobility 7 Walk 25 feet or more Mobility Calculator Rehab PT IP Eval Objective Appearance Patient Behavior Appropriate,Cooperative Patient Orientation Person,Place Difficulty following none instructions Speech Pattern Clear Ambulation Patient Able to Yes Ambulate Ambulation Observation IP General Gait Wide Based Gait Pattern Observation Ambulation Distance 25 (feet) Ambulation Assistive None Device Ambulation Ability Independent Balance Ability to Arise Able, uses arms to help Sitting Balance Steady, safe Standing Balance Steady, wide stance Dynamic Sitting Good Balance Ability Dynamic Standing Good Balance Ability Transfers Bed Transfer Ability Independent Sit to Stand Bed Independent Transfer Ability Rehab PT IP prob,goals,plan Problems Date of Evaluation: 09/04/25 Rehab Potential Rehab Potential Innapropriate for Skilled Therapy Discharge Plan PT Discharge Plan Pt is at her baseline with mobility/IND and would not benefit from skilled PT at this time. Eval Complexity Eval Charge Codes 52769 - Moderate Complexity PHYSICIAN CERTIFICATION: I certify the specified therapy services for Coretta Sanchez Rhianna are required, authorized, and reviewed every 30 days.
[2025-09-04] MEDS: CEFTRIAXONE 1 GM 1 GM in 0.9 % SODIUM CHLORIDE 50 ML IV (08:59)
[2025-09-04] MEDS: FLUTICASONE/UMECLIDIN/VILANTER 100/62.5/25MCG INHALER 1 PUFF IH (09:40)
[2025-09-04 10:47] LABS: POC Glucose,Bedside 132 gm/dL (70-110)
--- NOTE | 2025-09-07 09:58 | SW/DCPLANNER ---
Spoke with patient on the phone. Patient stated that her feet are swelling. I suggested that patient props her feet up to help with the swelling. Patient stated that she is aware of her upcoming appointments. Patient stated that she was able to get her new medicine picked up from [facility]. Patient stated that she has no concerns or questions at this time. Radha Conway
== END 2025-09-04 11:54 | disposition home or self-care (01) | DRG 871 ==
LOC: ER 21:24 → ICU 21:29 → 2ND 09-02 17:40
PROVIDERS: Internal Medicine Pulmonary Disease; Nurse Practitioner Family; Admitting Provider Student in an Organized Health Care Education/Training Program; Emergency Provider Student in an Organized Health Care Education/Training Program; Visit Provider Student in an Organized Health Care Education/Training Program
DX: A41.9 Sepsis, unspecified organism (principal); G93.41 Metabolic encephalopathy; J18.9 Pneumonia, unspecified organism; J96.21 Acute and chronic respiratory failure with hypoxia; I50.32 Chronic diastolic (congestive) heart failure; J44.0 Chronic obstructive pulmonary disease with (acute) lower respiratory infection; E87.1 Hypo-osmolality and hyponatremia; E87.20 Acidosis, unspecified; J44.1 Chronic obstructive pulmonary disease with (acute) exacerbation; I11.0 Hypertensive heart disease with heart failure; G47.33 Obstructive sleep apnea (adult) (pediatric); F41.9 Anxiety disorder, unspecified; F32.A Depression, unspecified; K21.9 Gastro-esophageal reflux disease without esophagitis; E11.9 Type 2 diabetes mellitus without complications; R59.0 Localized enlarged lymph nodes; T36.4X6A Underdosing of tetracyclines, initial encounter; Z91.148 Patient's other noncompliance with medication regimen for other reason; Z91.199 Patient's noncompliance with other medical treatment and regimen due to unspecified reason; Z87.891 Personal history of nicotine dependence; Z88.2 Allergy status to sulfonamides; Z79.82 Long term (current) use of aspirin; Z79.84 Long term (current) use of oral hypoglycemic drugs; Z79.85 Long-term (current) use of injectable non-insulin antidiabetic drugs; Z79.51 Long term (current) use of inhaled steroids; Z79.899 Other long term (current) drug therapy
CPT/HCPCS: 0223U; 36415; 70450; 71045; 71275; 80048; 80053; 80307; 81001; 82803; 82962; 83605; 83615; 83880; 84145; 85007; 85025; 86140; 87040; 87086; 89220; 93005; 93306; 94640; 94760; 94761; 97162; 97166; 99285; J0456; J0696; J1650; J1938; J2543; J2919; J3375; J7030; J7050; J7120; Q9967

== ENCOUNTER 2025-09-08 11:15 | Day surgery (SDC) | payer MEDICARE, MEDICAID, SELFPAY ==
--- NOTE | 2025-09-08 15:30 | PC.NURSE ---
APPROX 1130 PT TRANSPORTED TO ER VIA WHEELCHAIR R/T LOW SA02 WHILE ON HER 4L OF HOME O2. PT VS: BP 117/55, HR 72, RR 24, SAO2 85% ON 4L PER NC. PT INITAL SA02 UPON ARRIVAL TO PM PROCEDURE AREA WAS 77% ON 4L PER NC. PT SAO2 DID IMPROVED AFTER PT SAT STILL AND WAS NOT TALKING FOR A COUPLE OF MINUTES. PT DOES REPORT FEELING SOA. PT REPORTS WAS RECENTLY D/C FROM THE HOSPITAL R/T SEPSIS AND PNEUMONIA. PT MOTHER WHO IS WITH PT REPORTS PT HAS HAD PERIODS OF CONFUSION, STATES PT FELL IN HER ROOM LAST NIGHT R/T LEG WEAKNESS. PROVIDER ROLAND SMITH NOTIFIED OF PT RECENT MEDICAL HX AND SAO2. PDUFF TO ROOM TO SPEAK WITH PT. STATES TO PT AND HER MOTHER THAT PT SHOULD BE EVALUATED IN THE ER. PT AND HER MOTHER WERE IN AGREEANCE WITH THIS PLAN. PT ASSISTED TO ER VIA WHEELCHAIR PER PM STAFF MEMBER. STATED TO PT WILL RESCHEDULE HER INJECTION AFTER SHE IS FEELING BETTER.
== END 2025-09-08 11:30 | disposition home or self-care (01) ==
LOC: SC.PAINP 11:17
PROVIDERS: PCP Emergency Medicine; Visit Provider Nurse Practitioner Family
DX: R52 Pain, unspecified (principal); Z53.09 Procedure and treatment not carried out because of other contraindication; R09.02 Hypoxemia

== ENCOUNTER 2025-09-08 11:44 | Inpatient (IN) | payer MEDICARE, MEDICAID, SELFPAY ==
--- OUTSIDE RECORDS SUMMARY | 2025-07-17 05:20 | XMS_ITS | Continuity of Care Document ---
Author Organization [facility] Phone Care Team Providers Care Marble Ceiling Installer Name Role Phone NARA JOHNSON Unavailable NARA JOHNSON Primary Attending NARA JOHNSON O Admitting NARA JOHNSON Primary Care ALLERGIES AND ADVERSE REACTIONS ALLERGIES AND ADVERSE REACTIONS Code System Allergy Substance Adverse Reaction Date Reaction (Severity) Comment Status Reported By Updated [place] [id number] SNOMED CT Sulfa Antibiotics Adverse reaction to substance nausea active [id number] on May 20, 2025 3:05:22 PM [facility] FAMILY HISTORY RELATION: Father Status: Cause of : Malignant tumor of colon Age at : Unknown SNOMED-CT Diagnosis Age At Onset [id number] Chronic obstructive pulmonary di sease RELATION: Mother Status: LIVING SNOMED-CT Diagnosis Age At Onset [id number] Hypertensive disorder RELATION: Maternal Grandfath er Status: LIVING SNOMED-CT Diagnosis Age At Onset [id number] Rheumatoid arthritis RESULTS Patient: LION MEJIA Date of : 1970 LABORATORY RESULTS ORDER 100: LIPID PANEL (LOIN C: 23363-7) ORDER DATE: July 13, 2025 1:31:00 PM [place] Specimen Source: Serum/Plasm a Specimen Type: Acellular blo od (serum or plasma) specimen PERFORMING LAB: [address] [id number] Result Comment: Final Result Date: July 13, 2025 3:18:00 PM [facility] (TECH: STEVIE) LOINC TEST FLAG RESULT REFERENCE RANGE UPDA LUCERO BY 2571-8 Triglyceride [Mass/volume] in Serum or Plasma N 139 mg/dL 20 mg/dL - 200 mg/dL July 13, 2025 3:18:00 PM UTC (TECH: KSM) 2092-3 Cholesterol [Mass/volume] in Serum or Plasma H 210 mg/dL 0 mg/dL - 200 mg/dL July 13, 2025 3:18:00 PM UTC (TECH: KSM) 2084-9 Cholesterol in HDL [Mass/volume] in Serum or Plasma L 57 mg/dL 60 mg/dL July 13, 2025 3:18:00 PM UTC (TECH: KSM) 70627-8 Cholesterol in LDL [Mass/volume] in Serum or Plasma by calculation N 125 mg/dL 100 mg/dL July 13, 2025 3:18:00 PM UTC (TECH: KSM) 2095-06 Cholesterol in HDL/Cholesterol.tota l [Mass Ratio] in Serum or Plasma N 4 - 5 July 13, 2025 3:18:00 PM [facility] (TECH: KSLLamasoft) ORDER 200: COMP METABOLIC PA BRIA (LOINC: 97343-4) ORDER DATE: July 13, 2025 1:31:00 PM [place] Specimen Source: Serum/Plasm a Specimen Type: Acellular blo od (serum or plasma) specimen PERFORMING LAB: [address] [id number] Result Comment: Final Result Date: July 13, 2025 3:18:00 PM UT (TECH: KSLLamasoft) LOINC TEST FLAG RESULT REFERENCE RANGE UPDA LUCERO BY 2951-2 Sodium [Moles/volume ] in Serum or Plasma N 144 mmol/L 136 mmol/L - 145 mmol/L July 13, 2025 3:18:00 PM UT (TECH: KSM) 2823-3 Potassium [Moles/volume] in Serum or Plasma N 4.0 mmol/L 3.5 mmol/L - 5.1 mmol/L July 13, 2025 3:18:00 PM UT (TECH: KSM) 5-0 Chloride [Moles/volu me] in Serum or Plasma N 103 mmol/L 98 mmol/L - 107 mmol/L July 13, 2025 3:18:00 PM UTC (TECH: KSM) 2027-9 Carbon dioxide, tota l [Moles/volume] in Serum or Plasma H 35 mmol/L 21 mmol/L - 32 mmol/L July 13, 2025 3:18:00 PM [place] (TECH: NeuroSky) 04896-9 Anion gap 3 in Serum or Plasma N 6.0 July 13, 2025 3:18:00 PM UT (TECH: NeuroSky) 2345-7 Glucose [Mass/volume ] in Serum or Plasma N 104 mg/dL 70 mg/dL - 110 mg/dL July 13, 2025 3:18:00 PM UT (TECH: NeuroSky) 3094-0 Urea nitrogen [Mass/volume] in Serum or Plasma N 8 mg/dL 7 mg/dL - 18 mg/dL July 13, 2025 3:18:00 PM [place] (TECH: NeuroSky) 2160-0 Creatinine [Mass/volume] in Serum or Plasma N 0.7 mg/dL 0.6 mg/dL - 1.0 mg/dL July 13, 2025 3:18:00 PM [facility] (TECH: NeuroSky) 3097-3 Urea nitrogen/Creatinine [Mass Ratio] in Serum or Plasma N 11.4 9 - July 13, 2025 3:18:00 PM [place] (TECH: NeuroSky) 29039-4 Glomerular filtratio n rate/1.73 sq M.predicted by Creatinine-based formula (MDRD) N 101 mL/min >60 July 13, 2025 3:18:00 PM [facility] (TECH: NeuroSky) 17644-5 Osmolality of Serum or Plasma by calculated by sum of electrolytes N 298 mosm/kg 275 mosm/kg - 301 mosm/kg July 13, 2025 3:18:00 PM [place] (TECH: [employer]) 2885-2 Protein [Mass/volume ] in Serum or Plasma N 7.0 g/dL 6.4 g/dL - 8.2 g/dL July 13, 2025 3:18:00 PM UT (TECH: NeuroSky) 1751-7 Albumin [Mass/volume ] in Serum or Plasma N 3.7 g/dL 3.4 g/dL - 5.0 g/dL July 13, 2025 3:18:00 PM [place] (TECH: [employer]) 80180-5 Calcium [Mass/volume ] in Serum or Plasma N 9.4 mg/dL 8.5 mg/dL - 10.1 mg/dL July 13, 2025 3:18:00 PM UTC (TECH: NeuroSky) 12592-7 Calcium [Mass/volume ] corrected for total protein in Serum or Plasma N 9.6 mg/dL 8.5 mg/dL - 10.1 mg/dL July 13, 2025 3:18:00 PM UTC (TECH: NeuroSky) 1975-2 Bilirubin.total [Mass/volume] in Serum or Plasma N 0.4 mg/dL 0.4 mg/dL - 1.5 mg/dL July 13, 2025 3:18:00 PM UTC (TECH: [employer]Sky) 1920-8 Aspartate aminotransferase [Enzymatic activity/volume] in Serum or Plasma N 21 U/L 15 U/L - 37 U/L July 13, 2025 3:18:00 PM UTC (TECH: KSM) 1742-6 Alanine aminotransferase [Enzymatic activity/volume] in Serum or Plasma N 31 U/L 12 U/L - 78 U/L July 13, 2025 3:18:00 PM UTC (TECH: NeuroSky) 6768-6 Alkaline phosphatase [Enzymatic activity/volume] in Serum or Plasma N 112 U/L 50 U/L - 120 U/L July 13, 2025 3:18:00 PM UTC (TECH: KSLLamasoft) ORDER 300: CBC AUTO W DIFF ( LOINC: 46334-6) ORDER DATE: July 13, 2025 1:31:00 PM [place] Specimen Source: Whole Blood Specimen Type: Whole blood s ample PERFORMING LAB: [address] [id number] Result Comment: Final Result Date: July 13, 2025 2:56:00 PM UT (TECH: MRB) LOINC TEST FLAG RESULT REFERENCE RANGE UPDA LUCERO BY 6690-2 Leukocytes [#/volume] in Blood by Automated count N 8.4 10^3/uL 4.5 10^3/uL - 11.5 10^3/uL July 13, 2025 2:56:00 PM UT (TECH: MRB) 789-8 Erythrocytes [#/volume] in Blood by Automated count N 4.63 10^6/uL 4.25 10^6/uL - 5.57 10^6/uL July 13, 2025 2:56:00 PM UT (TECH: MRB) 718-7 Hemoglobin [Mass/volume] in Blood N 13.1 g/dL 12.0 g/dL - 15.7 g/dL July 13, 2025 2:56:00 PM UTC (TECH: MRB) 70543-8 Hematocrit [Volume Fraction] of Blood N 39.4 % 36.0 % - 47.0 % July 13, 2025 2:56:00 PM UTC (TECH: MRB) 787-2 Erythrocyte mean corpuscular volume [Entitic volume] by Automated count N 85.1 fl 80 fl - 95 fl July 13, 2025 2:56:00 PM UTC (TECH: MRB) 51307-6 Erythrocyte mean corpuscular hemoglobin [Entitic mass] in Blood from [place]etus by Automated count N 28.3 pg 27.0 pg - 34.0 pg July 13, 2025 2:56:00 PM UTC (TECH: MRB) 24349-3 Erythrocyte mean corpuscular hemoglobin concentration [Mass/volume] in Blood from Fetus by Automated count N 33.2 g/dL 32.0 g/dL - 36.0 g/dL July 13, 2025 2:56:00 PM UTC (TECH: MRB) 38455-5 Platelets [#/volume] in Blood N 200 10^3/uL 150 10^3/uL - 450 10^3/uL July 13, 2025 2:56:00 PM UTC (TECH: MRB) 85915-6 Erythrocyte distribution width [Ratio] N 13.8 % 12.3 % - 15.1 % July 13, 2025 2:56:00 PM UTC (TECH: MRB) 69758-0 Platelet mean volume [Entitic volume] in Blood by Automated count H 11.9 fl 7.4 fl - 10.4 fl July 13, 2025 2:56:00 PM UTC (TECH: MRB) 99125-3 Granulocytes/100 leukocytes in Blood by Automated count N 62.1 % 40 % - 75 % July 13, 2025 2:56:00 PM UTC (TECH: MRB) 736-9 Lymphocytes/100 leukocytes in Blood by Automated count N 25.1 % 15 % - 57 % July 13, 2025 2:56:00 PM UTC (TECH: MRB) 5905-5 Monocytes/100 leukocytes in Blood by Automated count N 8.8 % 4.0 % - 12.0 % July 13, 2025 2:56:00 PM UTC (TECH: MRB) 713-8 Eosinophils/100 leukocytes in Blood by Automated count N 2.6 % 0.0 % - 4.0 % July 13, 2025 2:56:00 PM UTC (TECH: MRB) 706-2 Basophils/100 leukocytes in Blood by Automated count N 0.5 % 0.0 % - 1.0 % July 13, 2025 2:56:00 PM UTC (TECH: MRB) 55593-1 Immature granulocytes [#/volume] in Blood H 0.9 % 0.0 % - 0.8 % July 13, 2025 2:56:00 PM UTC (TECH: MRB) 70950-2 Granulocytes [#/volume] in Blood by Automated count N 5.24 10^3/uL July 13, 2025 2:56:00 PM UTC (TECH: MRB) 731-0 Lymphocytes [#/volume] in Blood by Automated count N 2.12 10^3/uL July 13, 2025 2:56:00 PM UTC (TECH: MRB) 742-7 Monocytes [#/volume] in Blood by Automated count N 0.74 10^3/uL July 13, 2025 2:56:00 PM UTC (TECH: MRB) 711-2 Eosinophils [#/volume] in Blood by Automated count N 0.22 10^3/uL July 13, 2025 2:56:00 PM UTC (TECH: MRB) 704-7 Basophils [#/volume] in Blood by Automated count N 0.04 10^3/uL July 13, 2025 2:56:00 PM UTC (TECH: MRB) 51400-3 Immature granulocytes [#/volume] in Blood N 0.08 10^3/uL July 13, 2025 2:56:00 PM UTC (TECH: MRB) 46620-3 Manual differential performed [Presence] in Blood N NO July 13, 2025 2:56:00 PM UTC (TECH: MRB) ORDER 400: HEMOGLOBIN A1C (L OINC: 4548-4) ORDER DATE: July 13, 2025 1:31:00 PM [facility] Specimen Source: Whole Blood Specimen Type: Whole blood s ample PERFORMING LAB: [address] [id number] Result Comment: Final Result Date: July 13, 2025 3:21:00 PM [facility] (TECH: MRB) LOINC TEST FLAG RESULT REFERENCE RANGE UPDA LUCERO BY 4548-4 Hemoglobin A1c/Hemoglobin.total in Blood N 5.6 % 4.5 % - 6.2 % July 13, 2025 3:21:00 PM [facility] (TECH: MRB) 79149-1 Glucose mean value [Mass/volume] in Blood Estimated from glycated hemoglobin N 114 mg/dl 82 mg/dl - 131 mg/dl July 13, 2025 3:21:00 PM [facility] (TECH: MRB) LABORATORY NARRATIVE RESULTS Information is not available RADIOLOGY RESULTS Information is not available PATHOLOGY NARRATIVE RESULTS Information is not available MICROBIOLOGY RESULTS No Micro Labs/Results Exist for Patient BLOOD ADMIN RESULTS Information is not available MEDICATIONS HOME MEDICATIONS Status RXNORM NDC Medication Dose Route Frequency Dates Comments Reported By Updated By Drug Treatment Unknown DISCHARGE MEDICATIONS Status RXNORM NDC Medication Dose Route Frequency Dates Dis pense Data Comments Physician Updated By No Discharge Medication Info rmation Available INPATIENT MEDICATIONS Status RXNORM NDC Medication Dose Route Frequency Rat e Quantity Dates Indication Dispense Data Comments Physician Updated By No Inpatient Medication Info rmation Available SOCIAL HISTORY SOCIAL HISTORY - Smoking Status SNOMED-CT Social History Element Description Effective Dates Offered Cessation Comment Updated By [id number] Historical Tobacco smoking status Former Smoker [id number] on May 20, 2025 3:12:44 PM [facility] [id number] Historical Tobacco smoking status Current Every Day Smoker [email or web address] on December 07, 2024 3:57:36 PM [facility] SOCIAL HISTORY - Gender Sex: Female SOCIAL HISTORY - Status : status i nformation is not available Intention in Next Year: intention information is not available SOCIAL HISTORY - Assessments Code System Description Status Date Value of Assessment Updated By Comment Assessment Information is no t available SOCIAL HISTORY - [place] Affiliation [place] information is not av ailable SOCIAL HISTORY - Legal Sex Legal Sex information is not available SOCIAL HISTORY - Sexual Behavior Sexual Orientation Gender Identity SNOMED-CT Description SNO MED -CT Description Activity Level No of Partners Partner Type UpdatedBy Information is not available SOCIAL HISTORY - Occupation Occupation information is no t available HEALTH CONCERNS Problems Concern Status Health Concern problem infor mation not available. Smoking Status Status Years Used Consumed packs p er day Health Concern smoking histo ry information not available. Family History Concern Status Health Concern family histor y information not available. ENCOUNTERS ENCOUNTER INFORMATION Reason for Visit E78.5 Admission July 13, 2025 1:30:00 PM [place] [facility] [address] [facility] [id number] Discharge July 13, 2025 2:30:00 PM [place] D ISCHARGED TO HOME OR SELF CARE ENCOUNTER DIAGNOSES Notes information is not katherine ilable. Code System Diagnosis Onset Date Diagnosis information is not available. ABSTRACT DIAGNOSES Code System Diagnosis Updated By Abatement Date E78.5 ICD10 HYPERLIPIDEMIA, UNSPECIFIED [id number] on July 17, 2025 9:18:21 AM [facility] E78.5 ICD10 HYPERLIPIDEMIA, UNSPECIFIED [id number] on July 17, 2025 9:18:21 AM [facility] CARE TEAM Care Marble Ceiling Installer Role NARA JOHNSON Referring NARA JOHNSON Primary Attending NARA JOHNSON Admitting NARA JOHNSON Primary Care CARE TEAM CARE rn wound care Role on Team Location Telecom Status Start Date End Roderick e Updated By ALEX PRECIADO Referring normal July 13, 2025 4:00:00 AM [facility] July 13, 2025 2:30:00 PM [facility] [id number] on July 13, 2025 7:29:35 PM [facility] ALEX PRECIADO Attending normal July 13, 2025 4:00:00 AM [facility] July 13, 2025 2:30:00 PM [facility] [id number] on July 13, 2025 7:29:35 PM [facility] ALEX PRECIADO Admitting normal July 13, 2025 4:00:00 AM [facility] July 13, 2025 2:30:00 PM [facility] [id number] on July 13, 2025 7:29:35 PM [facility] ALEX PRECIADO PCP normal July 13, 2025 1:31:04 PM [facility] July 13, 2025 2:30:00 PM [facility] [id number] on July 13, 2025 7:29:35 PM [facility]
[2025-09-08] VITALS (41 sets, daily range): BP systolic 62–129; BP diastolic 29–87; PULSE 71–90; RESP 12–22; TEMP 36.4–37.2; O2SAT 85–98; BMI 44.9; BMI 36.9
--- OUTSIDE RECORDS SUMMARY | 2025-09-08 12:06 | XMS_ITS | Clinical Summary ---
Author Organization [facility] ([place], [place], [place], [place]) Address [address] [place] [address] Care Team Providers Care Senior Java Software Engineer Name Role Phone Unavailable Primary Care Provider Unavailabl e Social History Tobacco Use Types Packs/Day Years Used Date Smoking Tobacco: Never Assessed Comments Unknown Sex and Gender Information Value Date Recorded Sex Assigned at Not on file Legal Sex Female 4:13 PM CDT Gender Identity Not on file Sexual Orientation Not on file Plan of Treatment Not on file Insurance [facility] MEDICARE O MEDICAID OF [place]
--- OUTSIDE RECORDS SUMMARY | 2025-09-08 12:06 | XMS_ITS | Clinical Summary ---
Author Organization Healthcare Address [address] [place] [address] Care Team Providers Care Records Custodian Name Role Phone Arline Roberts Primary Care [...] of 2) 2019 UKY-Influenza Vaccine (#1) 2025 [id number] Vaccine Completed 07/25/2024, 10/25/2023, 05/11/2023, Additional history [...] patient's age to complete [place] [address] Care Teams Records Custodian Relationship Specialty Start Date End Date Arline Roberts PA [address] [place] [address] [place] [id number] [facility] - General 04/08/21
--- OUTSIDE RECORDS SUMMARY | 2025-09-08 12:06 | XMS_ITS | Clinical Summary ---
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
--- OUTSIDE RECORDS SUMMARY | 2025-09-08 12:06 | XMS_ITS | Encounter Summary ---
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 on file Not on file documented as of this encounter Plan of Treatment Upcoming Encounters Date Type Department Care Team (Late st Contact Info) Description 10/20/2025 9:30 AM EST Office Visit [facility] CARDIOLOGY [address] [place] [address] Nancy Pfeiffer APRN [address] [place] [address] documented as of this encounter Visit Diagnoses Diagnosis Hormone replacement therapy (HRT) documented in this encounter Care Teams Floor Clerk Relationship Specialty Start Date End Date Tutu Vance MD [address] [place] [address] PCP - General Emergency Medicine 05/14/23 documented as of this encounter
--- OUTSIDE RECORDS SUMMARY | 2025-09-08 12:06 | XMS_ITS | Clinical Summary ---
Author Organization [facility] Address [address] [place] [address] Care Team Providers Care Classroom Teacher Name Role Phone None, Physician Primary Care [...] 136 - 145 mmol/L 12/21/2024 6:13 AM [facility] ([id number]) Comment:Excess protein and/o r lipids can falsely decrease sodium levels (pseudo hyponatremia). Potassium 4.3 3.5 - 5.1 mmol/L 12/21/2024 6:13 AM [facility] ([id number]) Comment:Falsely elevated pot assium can occur in patients with high WBC or platelet counts. Chloride 105 98 - 107 mmol/L 12/21/2024 6:13 AM [facility] ([id number]) Comment:Falsely elevated chl oride levels can be seen in patients taking bromide containing medications. Carbon Dioxide 26 22 - 29 mmol/L 12/21/2024 6:13 AM [facility] ([id number]) Anion Gap 9 5 - 13 mmol/L 12/21/2024 6:13 AM [facility] ([id number]) Comment:Calculation: Na - (C l + CO2) Glucose, Random 75 71 - 99 mg/dL 12/21/2024 6:13 AM [facility] ([id number]) Blood Urea Nitrogen (BUN) 9(L) 10 - 20 mg/dL 12/21/2024 6:13 AM [facility] ([id number]) Creatinine, Blood 0.82 0.55 - 1.02 mg/dL 12/21/2024 6:13 AM [facility] ([id number]) BUN/Creatinine Ratio 11.0 RATIO 12/21/2024 6:13 AM [facility] ([id number]) Estimated GFR (Cr) 84 >60 mL/min/1.7 3m2 12/21/2024 6:13 AM [facility] ([id number]) Comment:eGFR calculated base d on IDMS traceable, enzymatic creatinine method using the CKD-EPI 2020 equation. Calcium 9.1 8.4 - 10.2 mg/dL 12/21/2024 6:13 AM [facility] ([id number]) Blood VENOUS BLOOD SPECIMEN / Unknown Venipuncture / Unknown 12/21/2024 5:28 AM EST 12/21/2024 5:44 AM EST us Claudia Vazquez MD LAB BLOOD ORDERABLES Final Resul t [facility] ([id number]) [address] [place] [address] from Last 3 Months or Most Recently Relevant to Health Maintenance Insurance [employer] MEDICARE REPLACEMENT Member Subscriber Plan / Payer (Ef fective 2024-Present) Name:Coretta Moctezuma Relation to Subscriber:Self Name:Coretta Moctezuma Payer ID:[id number] (NAIC) Type:Medicare Address: [address] [id number] MEDICAID [place] Member Subscriber Plan / Payer (Ef fective 2024-Present) Name:Coretta Moctezuma Relation to Subscriber:Self Name:Coretta Moctezuma Payer ID:[id number] Group ID:Not on file Type:Medicaid Address: [address] [facility] [place] [address] Advance Directives * Full Code (Latest Code Status on File) Date Activated Date Inactivated Comments 12/18/2024 9:41 AM 12/22/2024 5:51 PM Care Teams Classroom Teacher Relationship Specialty Start Date End Date None, Physician PCP - General 12/18/24
--- OUTSIDE RECORDS SUMMARY | 2025-09-08 12:06 | XMS_ITS | Referral Summary ---
Author Organization [facility] ([place], [place], [place], [place]) Address [address] [place] [address] Care Team Providers Care Medication Tech Name Role Phone Unavailable Primary Care Provider Unavailabl e Social History Tobacco Use Types Packs/Day Years Used Date Smoking Tobacco: Never Assessed Comments Unknown Sex and Gender Information Value Date Recorded Sex Assigned at Not on file Legal Sex Female 4:13 PM CDT Gender Identity Not on file Sexual Orientation Not on file Plan of Treatment Not on file Insurance [facility] MEDICARE O MEDICAID OF [place]
--- OUTSIDE RECORDS SUMMARY | 2025-09-08 12:06 | XMS_ITS | Encounter Summary ---
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 Not on file documented as of this encounter Plan of Treatment Upcoming Encounters Date Type Department Care Team (Late st Contact Info) Description 10/20/2025 9:30 AM EST Office Visit [facility] CARDIOLOGY [address] [place] [address] Nancy Pfeiffer APRN [address] [place] [address] documented as of this encounter Visit Diagnoses Not on filedocumented in this encounter Care Teams Primary Care Nurse Relationship Specialty Start Date End Date Tutu Vance MD [address] [place] [address] PCP - General Emergency Medicine 05/14/23 documented as of this encounter
--- OUTSIDE RECORDS SUMMARY | 2025-09-08 12:06 | XMS_ITS | Encounter Summary ---
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 Not on file documented as of this encounter Miscellaneous Notes * Telephone Encounter - Mary Toribio MA - 04/22/2024 3:21 PM EDT Patient needs to schedule annual exam documented in this encounter Plan of Treatment Upcoming Encounters Date Type Department Care Team (Late st Contact Info) Description 10/20/2025 9:30 AM EST Office Visit [facility] CARDIOLOGY [address] [place] [address] Nancy Pfeiffer APRN [address] [place] [address] documented as of this encounter Visit Diagnoses Diagnosis Hormone replacement therapy (HRT) documented in this encounter Care Teams Core Dropper Relationship Specialty Start Date End Date Tutu Vance MD [address] [place] [address] PCP - General Emergency Medicine 05/14/23 documented as of this encounter
--- NOTE | 2025-09-08 12:10 | PC.NURSE ---
respiratory notified that VBG sent to lab.
[2025-09-08 12:16] LABS: VBG HCO3 27.1 mmol/L (23-30); VBG PCO2 42.9 mmol/L (35-51); VBG PH 7.42 mmol/L (7.31-7.41); VBG PO2 45.4 mmol/L (28-40)
[2025-09-08 12:17] LABS: Lactate Venous 2.3 mmol/L (0.4-2.0)
[2025-09-08 12:19] LABS: Coronavirus 19, PCR Not Detected (NotDetected); Influenza A, PCR Not Detected (NotDetected); Influenza B, PCR Not Detected (NotDetected)
--- NOTE | 2025-09-08 12:23 | CT_ITS ---
FINAL REPORT TECHNIQUE: Thin section axial images were obtained through the lumbar spine without contrast. Sagittal and coronal reconstruction images were obtained from the axial data. Exam was performed using dose reduction techniques. CLINICAL HISTORY: fall, R abd pain, R lower chest pain, cough, SOA COMPARISON: 07/30/2025 FINDINGS: There is no acute fracture. There is grade 1 anterior spondylolisthesis of L4 on 5, unchanged. There is multilevel degenerative disc disease, most pronounced at L4-5 and L5-S1, stable from prior exam. Spinal stimulator was also seen on prior exam. Vertebral body height is preserved. Paraspinal soft tissues are within normal limits. There is no paraspinal mass or fluid collection. IMPRESSION: Stable degenerative changes. Reviewed, Interpreted and Dictated by Lesley Serrano MD Transcribed by Milagros Harper Authenticated and [facility]
--- NOTE | 2025-09-08 12:23 | CT_ITS ---
FINAL REPORT TECHNIQUE: Axial imaging of the chest is obtained after the administration of contrast. 3-D MIP reformatted images were also obtained and reviewed per PE protocol. CLINICAL HISTORY: fall, R abd pain, R lower chest pain, cough, shortness of breath COMPARISON: 09/01/2025 FINDINGS: The pulmonary arteries are well filled. There is no evidence of pulmonary embolus. There is no aortic dissection. Heart size is normal. No axillary lymphadenopathy. However there are multiple enlarged mediastinal lymph nodes which are similar to the prior study. For example, a left prevascular lymph node measuring 18 mm was 18 mm. Bilateral hilar and subcarinal lymphadenopathy is stable. Patchy bilateral ground-glass opacities are worse. There are worsening reticular nodular opacities bilaterally and worsening airspace disease in the left lower lobe, favor worsening pneumonia. There is no pleural or pericardial effusion. No acute osseous abnormality. IMPRESSION: No evidence of pulmonary embolism or aortic dissection. Worsening bilateral pneumonia, consider atypical organism. Reviewed, Interpreted and Dictated by Lesley Serrano MD Transcribed by Zahira Joseph Authenticated and [facility]
--- NOTE | 2025-09-08 12:23 | CT_ITS ---
FINAL REPORT TECHNIQUE: Thin section axial images were obtained through the cervical spine without contrast. Multiplanar reconstruction images were obtained from the axial data. Exam was performed using dose reduction techniques. CLINICAL HISTORY: fall, R abd pain, R lower chest pain, cough, SOA COMPARISON: 01/05/2022 FINDINGS: There is no acute fracture or acute malalignment of the cervical spine. There is reversal of the cervical lordosis which was seen on the prior exam. There is multilevel degenerative disc disease, progressed since prior and most pronounced at C5-6. There is no evidence of unilateral or bilateral facet lock. Vertebral body height is preserved. No acute paraspinal abnormality is identified. IMPRESSION: Multilevel degenerative disc disease, progressed since prior. Reviewed, Interpreted and Dictated by Lesley Serrano MD Transcribed by Milagros Harper Authenticated and . [facility]
--- NOTE | 2025-09-08 12:23 | CT_ITS ---
FINAL REPORT TECHNIQUE: Thin section axial images were obtained through the thoracic spine without contrast. Sagittal and coronal images were obtained from the axial data. This study was performed with techniques to keep radiation doses as low as reasonably achievable, (ALARA). Individualized dose reduction techniques using automated exposure control or adjustment of mA and/or kV according to the patient's size were employed. CLINICAL HISTORY: fall, R abd pain, R lower chest pain, cough, SOA COMPARISON: 09/01/2025 FINDINGS: There is no acute fracture of the thoracic spine. There is no malalignment. There is multilevel degenerative disc disease, similar from recent chest CT. Although the lungs are incompletely evaluated, there is patchy opacity in the left lung base which is worse since prior, could represent pneumonia. No acute paraspinal abnormality is identified. IMPRESSION: No fracture of the thoracic spine. Worsening left lung opacities, could represent pneumonia. Reviewed, Interpreted and Dictated by Lesley Serrano MD Transcribed by Milagros Harper Authenticated and [facility]
--- NOTE | 2025-09-08 12:23 | CT_ITS ---
FINAL REPORT TECHNIQUE: Thin section axial images are obtained through the abdomen and pelvis after intravenous contrast. Reconstruction images were obtained from the axial data. Exam was performed using dose reduction techniques. CLINICAL HISTORY: fall, R abd pain, R lower chest pain, cough, shortness of breath COMPARISON: None FINDINGS: LIVER: Fatty infiltrated. No focal lesion. GALLBLADDER/BILIARY SYSTEM: Gallbladder is present. No gallstones. No biliary dilatation. SPLEEN: Unremarkable. PANCREAS: Unremarkable. ADRENALS: Unremarkable. KIDNEYS/URETERS/BLADDER: No hydronephrosis, renal mass, or renal stone. Unremarkable urinary bladder. GI TRACT: There is a metallic density which may be at the terminal ileum. Is the foreign body is a consideration. No small bowel obstruction or dilatation. Normal appendix. Moderate amount of stool in the remainder of the colon. PELVIC ORGANS: Uterus is absent. LYMPH NODES/RETROPERITONEUM/MESENTERY: No lymphadenopathy. No abdominal aortic aneurysm. ABDOMINAL WALL: The abdominal wall is intact. FREE FLUID: No ascites. BONES: No acute osseous abnormality. IMPRESSION: No evidence of solid organ or GI tract injury. Metallic foreign body within the GI tract in the region of the terminal ileum. On dial painter imaging for CT scan, this has the appearance of a pendant. This could represent an ingested foreign body. No other acute abnormality identified. Reviewed, Interpreted and Dictated by Lesley Serrano MD Transcribed by Zahira Joseph Authenticated and [facility]
[2025-09-08 12:25] LABS: Alanine Aminotransferase 45 U/L (12-78); Albumin Level 3.5 g/dl (3.5-5.0); Albumin/Globulin Ratio 1.4 (1.1-1.8); Alkaline Phosphatase 117 U/L (38-126); Anion Gap 13.2 mEq/L (5-15); Aspartate Amino Transferase 66 U/L (14-36); Bilirubin,Total 0.9 mg/dl (0.2-1.3); Blood Urea Nitrogen 13 mg/dl (7-17); Calcium 9.1 mg/dl (8.4-10.2); Carbon Dioxide 30 mmol/L (22.0-30.0); Chloride 95 mmol/L (98-107); Creatinine Clearance Estimated 56 mL/min (50-200); Creatinine,Serum 0.80 mg/dl (0.52-1.04); Estimated Glomerular Filt Rate 74 ml/min (>60); GFR (African American) 90 ML/MIN (>60); Globulin 2.5 g/dL (1.3-3.2); Glucose 180 mg/dl (74-100); Hematocrit 31.5 % (37.0-47.0); Hemoglobin 10.5 g/dL (12.2-16.2); Immature Granulocytes % 3.7 %; Mean Corpuscular HGB Conc 33.3 g/dL (31.8-35.4); Mean Corpuscular Hemoglobin 28.5 pg (27.0-31.2); Mean Corpuscular Volume 85.6 fl (81-99); Nucleated Red Blood Cells % 0 %; Platelet Count 211 K/mm3 (142-424); Potassium 4.2 mmoL/L (3.5-5.1); Red Blood Count 3.68 M/mm3 (4.20-5.40); Red Cell Distribution Width-SD 40.2 fL; Sodium 134 mmol/L (136-145); Total Protein,Serum 6.0 g/dl (6.3-8.2); White Blood Count 12.7 K/mm3 (4.8-10.8)
[2025-09-08] MEDS: IPRATROPIUM/ALBUTEROL 3 ML NEB 9 ML IH (12:36)
[2025-09-08 12:38] LABS: NT Pro Brain Natriuretic Pep. 946 pg/mL (0-125)
[2025-09-08 12:39] LABS: Troponin I < 0.01 ng/ml (0.00-0.034)
[2025-09-08 12:40] LABS: Lipase 31 U/L (23-300)
--- NOTE | 2025-09-08 12:43 | [facility].EDCP ---
Discharge Plan Disposition Patient Disposition: Admitted Condition: Good Prescriptions Prescriptions: No Action metformin 500 mg tablet 500 mg PO DAILY pravastatin 40 mg tablet 40 mg PO DAILY aspirin 81 mg tablet,delayed release (DR/EC) 81 mg PO DAILY Trelegy Ellipta 200-62.5-25 mcg blister with device 1 inh inhalation DAILY Patient Comments: INHALE 1 PUFF BY MOUTH EVERY DAY pregabalin [Lyrica] 150 mg capsule 150 mg PO TID Qty: 90 2RF montelukast 10 MG tablet 10 mg PO HS pantoprazole 40 mg tablet,delayed release (DR/EC) 40 mg PO DAILY paroxetine HCl 10 mg tablet 10 mg PO HS Patient Comments: TAKE 1 TABLET BY MOUTH EVERY DAY IN THE EVENING FOR MOOD furosemide 20 mg tablet 20 mg PO DAILY Patient Comments: TAKE 1 TABLET BY MOUTH EVERY DAY estradiol 0.01 % (0.1 mg/gram) cream 2 g VAGINAL DAILY Patient Comments: INSERT 2 GRAMS VAGINALLY DAILY zolpidem 10 mg tablet 10 mg PO HS fluticasone propionate 50 mcg/actuation spray,suspension 2 spray INTRANASAL DAILY Patient Comments: SHAKE LIQUID AND USE 2 SPRAYS IN EACH NOSTRIL DAILY DIRECTED diazepam 5 mg tablet 5 mg PO DAILY Patient Comments: TAKE 1 TABLET BY MOUTH EVERY DAY buspirone 15 mg tablet 15 mg PO BID Patient Comments: TAKE 1 TABLET BY MOUTH TWICE DAILY DIRECTED FOR ANXIETY duloxetine 60 mg capsule,delayed release(DR/EC) 60 mg PO DAILY Patient Comments: TAKE 1 CAPSULE BY MOUTH EVERY DAY IN THE MORNING FOR MOOD levofloxacin 750 mg tablet 750 mg PO DAILY 4 Days Qty: 4 0RF Referrals Follow up/Referrals: Tutu Vance MD [Primary Care Provider, Medical] - See instructions Clinical Impressions Clinical Impression: Pneumonia, Acute exacerbation of CHF (congestive heart failure), Abdominal pain, Ingestion of foreign body Print Language Print Language: Frisian Discharge ED Provider: Ines Betts General Chief Complaint: Shortness of Breath/Dyspnea Stated Complaint: SOA Time Seen by Provider: 09/08/25 11:59 Mode of Arrival: Wheelchair Source of Information: Patient and Relative Description of Symptoms (Recalled from ER Triage Doc. by RN): Pt presents with c/o shortness of air along with swelling in bilateral legs. Pt was just discharged from the hospital on sunday following a stay for sepsis brought on by pneumonia. Pt complains of confusion. Mother at bedside states she fell in her bedroom last night an unknown number of times due to confusion and leg weakness. History of Present Illness HPI narrative: This patient is a 55-year-old female well-known to the emergency department with history of COPD chronically on 3 L nasal cannula, hypertension, hyperlipidemia chronic back pain, diabetes presenting to the emergency department for evaluation with concern for multiple complaints. Patient reports that she was admitted to the hospital for acute on chronic respiratory failure with discharged 09/03/2025 and altered mental status. She notes that since going home, she has had continued cough and shortness of breath with concern that her pneumonia is not clearing. She also has had right side/flank pain, right sided abdominal pain, back pain that is worsened. She also notes frequent falls. She denies any head injury or loss of consciousness during the falls. She states that she thinks her abdominal pain might be from constipation, as she has not had a good bowel movement since she was admitted. She also notes leg swelling and pain in her leg secondary to the swelling. She reports her legs are weeping. She denies any recent fevers, vomiting, urinary symptoms. She presented today to pain management for epidural injection for chronic pain, but they referred her here given her symptoms Related Data Home Medications ?Medication ?Instructions ?Recorded ?Confirmed montelukast 10 mg tablet 10 mg PO HS 05/12/21 09/02/25 pantoprazole 40 mg tablet,delayed 40 mg PO DAILY 07/07/21 09/02/25 release aspirin 81 mg tablet,delayed 81 mg PO DAILY 03/23/22 09/02/25 release metformin 500 mg tablet 500 mg PO DAILY 08/03/22 09/02/25 pravastatin 40 mg tablet 40 mg PO DAILY 08/21/22 09/02/25 fluticasone fur. 200 mcg-umeclid 1 inh inhalation DAILY 01/07/24 09/02/25 62.5 mcg-vilant 25 mcg inhalat.powder (Trelegy Ellipta) buspirone 15 mg tablet 15 mg PO BID 09/02/25 09/02/25 diazepam 5 mg tablet 5 mg PO DAILY 09/02/25 09/02/25 duloxetine 60 mg capsule,delayed 60 mg PO DAILY 09/02/25 09/02/25 release estradiol 0.01% (0.1 mg/gram) 2 g vaginal DAILY 09/02/25 09/02/25 vaginal cream fluticasone propionate 50 2 spray intranasal DAILY 09/02/25 09/02/25 mcg/actuation nasal spray,suspension furosemide 20 mg tablet 20 mg PO DAILY 09/02/25 09/02/25 paroxetine HCl 10 mg tablet 10 mg PO HS 09/02/25 09/02/25 zolpidem 10 mg tablet 10 mg PO HS 09/02/25 09/02/25 Previous Rx's ?Medication ?Instructions ?Recorded pregabalin 150 mg capsule (Lyrica) 150 mg PO TID #90 caps 08/28/25 levofloxacin 750 mg tablet 750 mg PO DAILY 4 days #4 tabs 09/03/25 Allergies Allergy/AdvReac Type Severity Reaction Status Date / Time Sulfa (Sulfonamide Allergy Rash Verified 08/28/25 13:02 Antibiotics) [facility] Disclaimer: The information contained in this section may have been updated after the patient was seen, as this information can be updated by other users. 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 current occupational exposures/hazards: No caffeine: Yes Have you lived/traveled outside [place] in past 30 days?: No Contact w/someone who lives/traveled outside US past 30 days?: No Exposure to someone with infectious disease in past 14 days?: No Do you have a fever (greater than 100.4 F or 38 C)?: No Have you tested positive for COVID-19?: No Exposed to someone with COVID-19 in past 14 days?: No Do you have a sore throat?: No Do you have a cough?: No Do you have any weakness?: No Do you have any diarrhea?: No Are you experiencing any unusual bleeding?: No Do you have any muscle aches/pain?: No Do you have any abdominal pain?: No Are you experiencing loss of taste or smell?: No Other Medical History Have you received the Flu Vaccine for this season: No Have you received the Pneumonia Vaccine: No ROS Obtained: Yes All systems reviewed & no additional complaints except as documented Physical Exam General General appearance: alert and in no apparent distress Head Head exam: atraumatic and normocephalic Eye Eye exam: Present normal appearance, PERRL and EOMI ENT ENT exam: Present normal exam, normal oropharynx, mucous membranes moist and normal external ear exam Neck Neck exam: Present normal inspection, full ROM and trachea midline; Absent tenderness Chest Chest inspection: Present normal inspection and symmetric chest wall rise; Absent tenderness Respiratory Respiratory exam: Present wheezes and other (Bilateral wheezes and rhonchi noted, no increased work of breathing); Absent respiratory distress, stridor or accessory muscle use Cardiovascular Cardiovascular exam: Present regular rate and normal rhythm Abdominal Exam Abdominal exam: Present soft; Absent distention, tenderness or guarding Extremities Exam Extremities exam: Present full ROM, normal capillary refill and edema (Symmetric bilateral lower extremity edema with weeping); Absent tenderness Back Exam Back exam: Present normal inspection and full ROM; Absent tenderness Neurological Exam Neurological exam: Present alert, oriented X3, CN II-XII intact and normal gait; Absent motor sensory deficit Psychiatric Psychiatric exam: Present normal affect and normal mood Skin Skin exam: Present warm and dry HEART Score HEART Score HEART Score assessment performed?: Yes History (anamnesis): Slightly suspicious ECG: Non-specific disturbance Age: 45-65 years Risk factors: 3 or more risk factors Troponin: </= normal limit HEART Score: 4 Critical Care Critical Care Time Critical Care Time: No Medical Decision Making Bruno Inquiry Pt receiving controlled substance: No Vital Signs Vital Signs: 09/08/25 11:48 09/08/25 12:05 09/08/25 12:06 Temperature 98.9 F Temperature Source Temporal Artery Scan Pulse Rate 74 75 Pulse Rate [Right] 90 Respiratory Rate 22 17 16 Blood Pressure 94/55 L 97/51 L Blood Pressure [Right Arm] 102/38 L Blood Pressure Mean Blood Pressure Mean [Right Arm] 59 Blood Pressure Source [Right Arm] Automatic Cuff Blood Pressure Position [Right Arm] Sitting 02 Sat by Pulse Oximetry 85 L 95 94 L Oxygen Delivery Method Nasal Cannula Nasal Cannula Nasal Cannula Oxygen Flow Rate (LPM) 2 4 4 09/08/25 12:10 09/08/25 12:15 09/08/25 12:21 Temperature Temperature Source Pulse Rate 77 79 78 Pulse Rate [Right] Respiratory Rate 17 18 15 Blood Pressure 101/54 L 86/61 L 62/29 L Blood Pressure [Right Arm] Blood Pressure Mean Blood Pressure Mean [Right Arm] Blood Pressure Source [Right Arm] Blood Pressure Position [Right Arm] 02 Sat by Pulse Oximetry 95 96 95 Oxygen Delivery Method Nasal Cannula Nasal Cannula Nasal Cannula Oxygen Flow Rate (LPM) 4 4 4 09/08/25 12:30 09/08/25 12:40 09/08/25 12:50 Temperature Temperature Source Pulse Rate 75 73 73 Pulse Rate [Right] Respiratory Rate 16 12 13 Blood Pressure 99/53 L 107/53 L 102/51 L Blood Pressure [Right Arm] Blood Pressure Mean 67 73 Blood Pressure Mean [Right Arm] Blood Pressure Source [Right Arm] Blood Pressure Position [Right Arm] 02 Sat by Pulse Oximetry 95 98 98 Oxygen Delivery Method Nasal Cannula Oxygen Flow Rate (LPM) 4 09/08/25 13:33 09/08/25 13:35 09/08/25 13:40 Temperature Temperature Source Pulse Rate 71 74 77 Pulse Rate [Right] Respiratory Rate 14 18 21 Blood Pressure 91/46 L 80/54 L 88/69 L Blood Pressure [Right Arm] Blood Pressure Mean Blood Pressure Mean [Right Arm] Blood Pressure Source [Right Arm] Blood Pressure Position [Right Arm] 02 Sat by Pulse Oximetry 90 L 91 L 92 L Oxygen Delivery Method Nasal Cannula Nasal Cannula Nasal Cannula Oxygen Flow Rate (LPM) 4 4 4 09/08/25 13:46 09/08/25 13:51 09/08/25 14:00 Temperature Temperature Source Pulse Rate 79 80 77 Pulse Rate [Right] Respiratory Rate 18 13 19 Blood Pressure 101/65 L 95/38 L 87/54 L Blood Pressure [Right Arm] Blood Pressure Mean Blood Pressure Mean [Right Arm] Blood Pressure Source [Right Arm] Blood Pressure Position [Right Arm] 02 Sat by Pulse Oximetry 91 L 88 L 92 L Oxygen Delivery Method Nasal Cannula Nasal Cannula Nasal Cannula Oxygen Flow Rate (LPM) 4 4 4 09/08/25 14:10 09/08/25 14:27 09/08/25 14:30 Temperature Temperature Source Pulse Rate 79 89 81 Pulse Rate [Right] Respiratory Rate 19 17 Blood Pressure 94/51 L 107/69 L 95/54 L Blood Pressure [Right Arm] Blood Pressure Mean Blood Pressure Mean [Right Arm] Blood Pressure Source [Right Arm] Blood Pressure Position [Right Arm] 02 Sat by Pulse Oximetry 90 L 95 95 Oxygen Delivery Method Nasal Cannula Nasal Cannula Nasal Cannula Oxygen Flow Rate (LPM) 4 4 4 09/08/25 14:36 09/08/25 14:40 09/08/25 15:02 Temperature Temperature Source Pulse Rate 78 80 84 Pulse Rate [Right] Respiratory Rate Blood Pressure 111/38 L 87/53 L 99/49 L Blood Pressure [Right Arm] Blood Pressure Mean Blood Pressure Mean [Right Arm] Blood Pressure Source [Right Arm] Blood Pressure Position [Right Arm] 02 Sat by Pulse Oximetry 94 L 92 L 92 L Oxygen Delivery Method Nasal Cannula Nasal Cannula Nasal Cannula Oxygen Flow Rate (LPM) 4 4 2 09/08/25 15:05 09/08/25 15:10 09/08/25 15:15 Temperature Temperature Source Pulse Rate 79 80 80 Pulse Rate [Right] Respiratory Rate Blood Pressure 100/48 L 99/50 L 96/57 L Blood Pressure [Right Arm] Blood Pressure Mean Blood Pressure Mean [Right Arm] Blood Pressure Source [Right Arm] Blood Pressure Position [Right Arm] 02 Sat by Pulse Oximetry 92 L 92 L 92 L Oxygen Delivery Method Nasal Cannula Nasal Cannula Nasal Cannula Oxygen Flow Rate (LPM) 2 2 2 09/08/25 15:16 09/08/25 15:20 Temperature Temperature Source Pulse Rate 78 Pulse Rate [Right] Respiratory Rate Blood Pressure 105/62 L Blood Pressure [Right Arm] Blood Pressure Mean Blood Pressure Mean [Right Arm] Blood Pressure Source [Right Arm] Blood Pressure Position [Right Arm] 02 Sat by Pulse Oximetry 91 L 91 L Oxygen Delivery Method Nasal Cannula Nasal Cannula Oxygen Flow Rate (LPM) 2 2 Lab Data Labs: Lab Results 09/08/25 12:04: WBC 12.7 H, RBC 3.68 L, Hgb 10.5 L, Hct 31.5 L, MCV 85.6, MCH 28.5, MCHC 33.3, RDW 13.2, Plt Count 211, MPV 11.5 H, Neut % (Auto) 84.3 H, Lymph % (Auto) 6.8 L, [place] % (Auto) 4.6, Eos % (Auto) 0.2, Baso % (Auto) 0.4, Neut # (Auto) 10.8 H, Lymph # (Auto) 0.9, [place] # (Auto) 0.6, Eos # (Auto) 0.0, Baso # (Auto) 0.1, Sodium 134 L, Potassium 4.2, Chloride 95 L, Carbon Dioxide 30, Anion Gap 13.2, BUN 13, Creatinine 0.80, Estimated Creat Clear 56, Estimated GFR 74, Est GFR ( Amer) 90, Glucose 180 H, Lactate 2.0, Calcium 9.1, Total Bilirubin 0.9, AST 66 H, ALT 45, Alkaline Phosphatase 117, Troponin I < 0.01, NT-Pro-B Natriuret Pep 946 H, Total Protein 6.0 L, Albumin 3.5, Globulin 2.5, Albumin/Globulin Ratio 1.4, Lipase 31 09/08/25 12:06: VBG pH 7.42 H, VBG pCO2 42.9, VBG pO2 45.4 H, VBG HCO3 27.1, VBG Total CO2 28.5 H, VBG O2 Saturation 80.1 H, VBG Base Excess 2.6 H, VBG Lactic Acid 2.3 H 09/08/25 12:14: SARS-CoV-2 (PCR) Not detected, Influenza A Untype (PCR) Not detected, Influenza Type B (PCR) Not detected 09/08/25 12:04 09/08/25 12:04 Response Orders (Tests/Meds): ED MEDICATIONS Generic Name Dose Route Start Last Admin Trade Name Freq PRN Reason Stop Dose Admin Vancomycin/PEG/NADA/Lysine/Water 1.75 gm in 350 mls @ 175 mls/hr 09/08/25 15:15 Vancomycin 1.75gm/350ml (Peg) Premix IV 09/08/25 17:14 ONCE ONE Sodium Chloride 3 ml 09/08/25 14:57 Sodium Chloride 3% 15ml Neb IH 10/08/25 14:56 ONCE PRN INDUCE SPUTUM COLLECTION Discontinued Medications Generic Name Dose Route Start Last Admin Trade Name Freq PRN Reason Stop Dose Admin Albuterol/Ipratropium 9 ml 09/08/25 12:24 09/08/25 12:36 Ipratropium/Albuterol 3 Ml Neb IH 09/08/25 12:25 9 ml ONCE ONE Administration Furosemide 40 mg 09/08/25 14:57 09/08/25 15:04 Furosemide 40mg/4ml Vial IV 09/08/25 14:58 40 mg ONCE ONE Administration Piperacillin Sod/Tazobactam 50 mls @ 100 mls/hr 09/08/25 15:11 Sod 3.375 gm/ Sodium Chloride IV 09/08/25 15:40 ONCE ONE Iopamidol 75 ml 09/08/25 13:08 09/08/25 13:09 Iopamidol-370 (76%);100ml Bottle IV 09/08/25 13:09 75 ml ONCE ONE Administration Methylprednisolone Sodium Succinate 125 mg 09/08/25 15:11 Methylprednisolone Sod Succ 125mg Vial IV 09/08/25 15:12 ONCE ONE Miscellaneous 1 each 09/08/25 15:15 Vancomycin Consult Request NOTAPPLIC 10/08/25 15:14 CONSULT PHARMACY LEON Sodium Chloride 50 ml 09/08/25 13:08 09/08/25 13:08 0.9 % Sodium Chloride 50 Ml Vial IV 09/08/25 13:09 50 ml ONCE ONE Administration Sodium Chloride 10 ml 09/08/25 13:08 09/08/25 13:09 Sodium Chloride 0.9% 10ml Syr (Rad Only) IV 09/08/25 13:09 10 ml ONCE ONE Administration ORDERS Category Date Time Status CT abdomen pelvis w con Stat Cat Scan 09/08/25 12:[address] angio chest PE protocol Stat Cat Scan 09/08/25 12:[address] cervical spine wo con Stat Cat Scan 09/08/25 12:[address] lumbar spine wo con Stat Cat Scan 09/08/25 12:[address] thoracic spine wo con Stat Cat Scan 09/08/25 12:23 Completed BNP [NT Pro Brain Natriuretic Pep.] Stat Lab 09/08/25 12:04 Completed CBC w/Auto Diff [Complete Blood Count Auto Diff] Stat Lab 09/08/25 12:04 Completed CMP [Comprehensive Metabolic Panel] Stat Lab 09/08/25 12:04 Completed Full Resp Panel w/COVID ([facility]) Routine Lab 09/08/25 12:14 Received Lactic Acid Stat Lab 09/08/25 12:04 Completed Lipase Stat Lab 09/08/25 12:04 Completed Rapid PCR Covid and Flu A/B Stat Lab 09/08/25 12:14 Completed Trop I [Troponin I] Stat Lab 09/08/25 12:04 Completed Troponin I Q3H Lab 09/08/25 15:11 Received Troponin I Q3H Lab 09/08/25 18:15 Ordered Blood Culture Stat Micro 09/08/25 12:33 Received Sputum Culture & Gram Stain Stat Micro 09/08/25 14:57 Ordered VBG [Venous Blood Gas] Stat RT 09/08/25 12:06 Completed ECG Data Tracing #1: Attestation: I reviewed this ECG and interpreted as documented below: ECG Narrative: I dependently interpreted EKG at 1159 as noted sinus rhythm with a ventricular to [address] changes concerning for STEMI. Normal intervals ECG initial impression date: 09/08/25 ECG initial impression time: 11:59 MDM Narrative Medical Decision Narrative: In summary, this patient is a 55-year-old female presenting to the Emergency Department for evaluation of multiple complaints including cough and shortness of breath, right sided back and abdominal pain, frequent falls, leg swelling. Differential diagnoses considered include but are not limited to COPD exacerbation, CHF exacerbation, traumatic injury from fall, constipation, colitis, PE among others. Ruling out the most morbid conditions drove assessment. It should be noted patient's history includes COPD, hypertension, hyperlipidemia, CHF, diabetes which likely are not at goal therapy. This complicates all aspects of care by increasing patient's risk for morbidity. I reviewed patient's past medical records and noted recent admission as detailed in the HPI. On exam, the patient is sitting upright in no distress. She is doing well on her home oxygen with normal vitals on cardiac telemetry. She has wheezes and rhonchi noted but otherwise cardiopulmonary exam is reassuring. She has symmetric bilateral lower extremity swelling and weeping. She has some mild abdominal tenderness but no rebound, guarding, or rigidity. Workup included Lab evaluation to evaluate for infectious, metabolic, cardiac causes of her current presentation as well as CT PE, CT abdomen pelvis with IV contrast. She was given DuoNebs x 3 to assess for symptomatic improvement in her shortness of breath. EKG is obtained and is reassuring. I independently interpreted CT scans prior to the radiologist read and noted worsening pneumonia. No obvious traumatic spine injury, no PE. She does have metallic foreign body in her right lower quadrant. They note concerns for ingested foreign body, likely pendent based on senior net architect film. Please see their read for final interpretation. Labs were obtained that demonstrated mild leukocytosis which is actually improved from prior evaluation. She also has chronic anemia.. She has mild hyponatremia. BNP is elevated at 946 but this actually down from her previous admission. Initial troponin is undetectable. On reassessment, patient continues to state that she feels very bad. She states that she feels like she cannot breathe. She is maintaining good oxygen saturations on 3 L nasal cannula with an O2 sat of 91 to 92%. She is not tachycardic, nontachypneic, normotensive. Ultimately, her chest imaging looks worse, possibly worsening atypical pneumonia but I also worry about pulmonary edema with evidence of volume overload on clinical exam. She reports she is not taking diuretic at home, that looks like she is been prescribed 20 mg of Lasix. I administered 40 mg of IV Lasix here. She just finished her last dose of Levaquin, which she was on for pneumonia last admission. Given failed outpatient treatment of pneumonia, I started on broad-spectrum antibiotics with IV vancomycin and Zosyn. Given the ingested foreign body in the right lower quadrant, we patient had a interactive discussion with Dr. Aoyn with general surgery who recommended bowel prep, serial x-rays, serial abdominal exams. I then had an interactive discussion with the hospitalist who admitted the patient in stable condition
[2025-09-08] MEDS: 0.9 % SODIUM CHLORIDE 50 ML VIAL IV (13:08)
[2025-09-08] MEDS: SODIUM CHLORIDE 0.9% 10ML SYR (RAD ONLY) 10 ML IV (13:09)
[2025-09-08] MEDS: IOPAMIDOL-370 (76%);100ML BOTTLE 75 ML IV (13:09)
[2025-09-08 15:02] LABS: Adenovirus,PCR Not Detected (NotDetected); Chlamydophila Pneumoniae, PCR Not Detected (NotDetected); Coronavirus 19, PCR Not Detected (NotDetected); Coronovirus HKU1,PCR Not Detected (NotDetected); Influenza A, PCR Not Detected (NotDetected); Influenza AH1, 2009 Not Detected (NotDetected); Influenza AH1, PCR Not Detected (NotDetected); Influenza AH3,PCR Not Detected (NotDetected); Influenza B, PCR Not Detected (NotDetected); Mycoplasma Pneumoniae, PCR Not Detected (NotDetected); Parainfluenza 1, PCR Not Detected (NotDetected); Parainfluenza 2, PCR Not Detected (NotDetected); Parainfluenza 3, PCR Not Detected (NotDetected); Parainfluenza 4, PCR Not Detected (NotDetected)
[2025-09-08] MEDS: FUROSEMIDE 40MG/4ML VIAL 40 MG IV ×2 (15:04→19:31)
[2025-09-08 15:50] LABS: Troponin I < 0.01 ng/ml (0.00-0.034)
[2025-09-08] MEDS: METHYLPREDNISOLONE SOD SUCC 125MG VIAL 125 MG IV (15:50)
[2025-09-08] MEDS: PIPERACILLIN/TAZO 3.375 GM in 0.9 % SODIUM CHLORIDE 50 ML IV (15:52)
[2025-09-08 16:17] LABS: Reflex Lactic Add Lactic Reflex
[2025-09-08] MEDS: VANCOMYCIN/WATER FOR INJ (PEG) 1.75 GM/350 ML PIGGYBACK IV (16:19)
--- NOTE | 2025-09-08 16:25 | EXP.HP ---
History of Present Illness *Admission Date: 09/08/25 *Reason for visit:: Dyspnea, swelling in legs *History of present illness: Ms. Moctezuma is a 55-year-old female who was recently admitted for pneumonia. Just discharged last week on oral antibiotics to complete course. Chronic respiratory failure on 2 to 4 L. Has history of COPD and obesity. She presented for injection with pain clinic and they were concerned for her dyspnea and sent her to the ER for evaluation. On arrival she complains of shortness of breath, increased swelling in her legs over the past several days. Says she felt good for 1 day after admission but then began feeling bad again with worsening shortness of breath and weakness. Denies chest pain, nausea, vomiting. Is alert and oriented x 4. On workup in the ER, found to have persistent pneumonia on chest imaging. Also found incidentally to have foreign body in her distal ileum. White count still marginally elevated at 12.7. Severe edema in her lower extremities. Medicine consulted for further treatment of persistent pneumonia and possible CHF exacerbation along with foreign body in colon. On arrival to the floor, patient complains of some mild abdominal discomfort. Feeling better on 3 L oxygen. Initiated on diuretics, no significant urine output as of yet. States she has been taking her diuretics at home but has noticed increased swelling. Denies any jonathon fever. Denies productive cough. Also states that she has got some constipation and has not had a good bowel movement in a day or 2. [facility] Disclaimer: The information contained in this section may have been updated after the patient was seen, as this information can be updated by other users. 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 current occupational exposures/hazards: No caffeine: Yes Have you lived/traveled outside [place] in past 30 days?: No Contact w/someone who lives/traveled outside [place] past 30 days?: No Exposure to someone with infectious disease in past 14 days?: No Do you have a fever (greater than 100.4 F or 38 C)?: No Have you tested positive for COVID-19?: No Exposed to someone with COVID-19 in past 14 days?: No Do you have a sore throat?: No Do you have a cough?: No Do you have any weakness?: No Do you have any diarrhea?: No Are you experiencing any unusual bleeding?: No Do you have any muscle aches/pain?: No Do you have any abdominal pain?: No Are you experiencing loss of taste or smell?: No Other Medical History Have you received the Flu Vaccine for this season: No Have you received the Pneumonia Vaccine: No Review of Systems Review of Systems Review of systems (narrative): 14 point review of systems performed, pertinent positives and negatives as per HPI Meds Home Medications and Allergies Home Medications ?Medication ?Instructions ?Recorded ?Confirmed ?Type montelukast 10 mg tablet 10 mg PO HS 05/12/21 09/08/25 History pantoprazole 40 mg tablet,delayed 40 mg PO DAILY 07/07/21 09/08/25 History release aspirin 81 mg tablet,delayed 81 mg PO DAILY 03/23/22 09/08/25 History release metformin 500 mg tablet 500 mg PO DAILY 08/03/22 09/08/25 History pravastatin 40 mg tablet 40 mg PO DAILY 08/21/22 09/08/25 History fluticasone fur. 200 mcg-umeclid 1 inh inhalation DAILY 01/07/24 09/08/25 History 62.5 mcg-vilant 25 mcg inhalat.powder (Trelegy Ellipta) pregabalin 150 mg capsule (Lyrica) 150 mg PO TID #90 caps 08/28/25 09/08/25 Rx buspirone 15 mg tablet 15 mg PO BID 09/02/25 09/08/25 History diazepam 5 mg tablet 5 mg PO DAILY 09/02/25 09/08/25 History duloxetine 60 mg capsule,delayed 60 mg PO DAILY 09/02/25 09/08/25 History release estradiol 0.01% (0.1 mg/gram) 2 g vaginal DAILY 09/02/25 09/08/25 History vaginal cream fluticasone propionate 50 2 spray intranasal DAILY 09/02/25 09/08/25 History mcg/actuation nasal spray,suspension furosemide 20 mg tablet 20 mg PO DAILY 09/02/25 09/08/25 History paroxetine HCl 10 mg tablet 10 mg PO HS 09/02/25 09/08/25 History zolpidem 10 mg tablet 10 mg PO HS 09/02/25 09/08/25 History levofloxacin 750 mg tablet 750 mg PO DAILY 4 days #4 tabs 09/03/25 09/08/25 Rx New Prescriptions to Start Prescriptions: Allergies Allergy/AdvReac Type Severity Reaction Status Date / Time Sulfa (Sulfonamide Allergy Rash Verified 08/28/25 13:02 Antibiotics) Exam Data for Last 24 hours Vital signs and Labs for Last 24 Hours: Temp Pulse Resp BP Pulse Ox O2 Del Method O2 Flow Rate 98.9 F 83 17 99/51 L 92 L Nasal Cannula 2 09/08/25 11:48 09/08/25 16:05 09/08/25 14:30 09/08/25 16:05 09/08/25 16:05 09/08/25 16:05 09/08/25 16:05 Laboratory Results - last 24 hr 09/08/25 12:04: WBC 12.7 H, RBC 3.68 L, Hgb 10.5 L, Hct 31.5 L, MCV 85.6, MCH 28.5, MCHC 33.3, RDW 13.2, Plt Count 211, MPV 11.5 H, Neut % (Auto) 84.3 H, Lymph % (Auto) 6.8 L, [place] % (Auto) 4.6, Eos % (Auto) 0.2, Baso % (Auto) 0.4, Neut # (Auto) 10.8 H, Lymph # (Auto) 0.9, [place] # (Auto) 0.6, Eos # (Auto) 0.0, Baso # (Auto) 0.1, Sodium 134 L, Potassium 4.2, Chloride 95 L, Carbon Dioxide 30, Anion Gap 13.2, BUN 13, Creatinine 0.80, Estimated Creat Clear 56, Estimated GFR 74, Est GFR ( Amer) 90, Glucose 180 H, Lactate 2.0, Calcium 9.1, Total Bilirubin 0.9, AST 66 H, ALT 45, Alkaline Phosphatase 117, Troponin I < 0.01, NT-Pro-B Natriuret Pep 946 H, Total Protein 6.0 L, Albumin 3.5, Globulin 2.5, Albumin/Globulin Ratio 1.4, Lipase 31 09/08/25 12:06: VBG pH 7.42 H, VBG pCO2 42.9, VBG pO2 45.4 H, VBG HCO3 27.1, VBG Total CO2 28.5 H, VBG O2 Saturation 80.1 H, VBG Base Excess 2.6 H, VBG Lactic Acid 2.3 H 09/08/25 12:14: SARS-CoV-2 (PCR) Not detected, Influenza A Untype (PCR) Not detected, Influenza Type B (PCR) Not detected 09/08/25 15:11: Troponin I < 0.01 I & O for Last 24 hours: Intake & Output 09/05/25 09/06/25 09/07/25 09/08/25 23:59 23:59 23:59 23:59 Intake Total 50 / 50 Balance 50 / 50 Weight 104.326 kg Constitutional Constitutional: mild distress, obese, chronically ill appearing and cooperative *Routine HEENT Exam Head: Present normocephalic and atraumatic Eye: Present EOMI and PERRL ENT: Present mucous membranes moist *Routine Neck Exam Neck: Present supple, full ROM and trachea midline *Routine Respiratory Exam Respiratory: Present rhonchi, distant breath sounds and diminished air movement; Absent wheezes or crackles *Routine Cardiovascular Exam Cardiovascular: Present RRR, Normal S1 and Normal S2 *Routine Abdominal Exam Abdominal: Present soft, normoactive bowel sounds, tenderness (Mild tenderness right lower quad) and distended *Routine Rectal Exam Rectal:: deferred *Routine Genitalia Exam Genitalia:: deferred *Routine Extremities Exam Extremities: Present edema (3+ to knees), pulses intact and normal capillary refill *Routine Skin Exam Skin: Present intact, dry, warm and normal turgor *Routine Neurological Exam Neurological: Present alert, oriented X3 and CN II-XII intact Routine Psychiatric Exam Psychiatric: Present normal affect and normal thought process Assessment and Plan *Assessment and plan (1) Ingestion of foreign body: Status: Acute Qualifiers: Encounter type: initial encounter Qualified Code(s): T18.9XXA - Foreign body of alimentary tract, part unspecified, initial encounter Category: Medical Code(s): T18.9XXA - Foreign body of alimentary tract, part unspecified, initial encounter (2) Abdominal pain: Status: Acute Qualifiers: Abdominal location: right lower quadrant Qualified Code(s): R10.31 - Right lower quadrant pain Category: Medical Code(s): R10.9 - Unspecified abdominal pain (3) Acute exacerbation of CHF (congestive heart failure): Status: Acute Qualifiers: Heart failure type: unspecified Qualified Code(s): I50.9 - Heart failure, unspecified Category: Medical Code(s): I50.9 - Heart failure, unspecified (4) Pneumonia: Status: Acute Qualifiers: Laterality: unspecified laterality Lung location: unspecified part of lung Pneumonia type: due to unspecified organism Qualified Code(s): J18.9 - Pneumonia, unspecified organism Category: Medical Code(s): J18.9 - Pneumonia, unspecified organism (5) History of COPD: Status: Acute Category: Medical Code(s): Z87.09 - Personal history of other diseases of the respiratory system (6) Obesity (BMI 30.0-34.9): Status: Acute Category: Medical Code(s): E66.811 - Obesity, class 1 (7) Neuropathy: Status: Acute Category: Medical Code(s): G62.9 - Polyneuropathy, unspecified (8) Type 2 diabetes mellitus: Status: Acute Qualifiers: Diabetes mellitus complication detail: with polyneuropathy Diabetes mellitus complication status: with neurologic complications Diabetes mellitus buttermaker insulin use: with residential use Qualified Code(s): E11.42 - Type 2 diabetes mellitus with diabetic polyneuropathy; 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 Moctezuma is a 55-year-old female with COPD, obesity, neuropathy, depression who was just admitted for pneumonia. Completed her antibiotic course with Levaquin 750 mg daily. Presents with worsening swelling in her legs and shortness of breath. Workup in the ER concerning for persistent left lower lobe pneumonia and volume overload. Discussed case with ER, request admission for continued treatment of pneumonia and diuresis. I decided to admit for aggressive diuresis, pulmonology consult, optimization of care. Problems addressed as follows: #Community-acquired pneumonia COPD Chronic hypoxemic respiratory failure -CT of chest per my review showing left lower lobe consolidation. Persistent and somewhat worse. -Baseline oxygen 2 L during the day, 4 L at night ? White count still elevated but improved from last admission. Elevated 12.7. Platelets 211. Neutrophil predominant at 84%. - Necessitating 3 L oxygen to maintain sats above 90%. Wean as tolerated. - Repeat CBC, CMP, magnesium ordered for morning - Kidney function normal with BUN 13, creatinine 0.8. Sodium 134. Potassium 4.2. -Initiated on Zosyn in the ER, continue 3.375 g every 6 hours. - Continue Singulair 10 mg nightly - Continue Trelegy 200 inhaler daily Foreign body - noted incidentally on abdomen CT and pelvis. Per my review, appears to have pendent or some type of piece of jewelry in her distal ileum near ileocecal junction. Will initiate GoLytely prep to try and flush colon. Monitor stool output for foreign body. Will repeat plain film x-ray in the morning to evaluate for expulsion of foreign body. If develops any obstruction, will consult surgery Neuropathy: Continue Lyrica 150 mg times a day #HFpEF ?Patient appears frankly volume overloaded with 3+ edema in lower extremities. Received 40 mg IV Lasix once in the ER, will give additional 40 mg once on arrival to the floor. Continue 80 mg twice daily. - BNP only 946 however given her oxygen requirement, volume overload in legs, concern for component of CHF exacerbation. Previous echo obtained on 09/02 with inability to estimate RVSP. LV hyperdynamic. #Anxiety/depression: # Insomnia: - continue home BuSpar 15 mg twice daily, Cymbalta 60 mg, Paxil 10 mg nightly. Will hold Valium. Continue Ambien 10 mg nightly. Monitor for toxicity and oversedation #GERD: Continue PPI. Reported history of diabetes, on metformin daily. A1c pending. Glucose 180 on admission. Will initiate fingersticks ACHS with sliding scale insulin pending A1c Full code DVT prophylaxis: Lovenox 40 mg Cardiac diet, n.p.o. at midnight for ultrasound of right upper quadrant
--- NOTE | 2025-09-08 16:39 | PC.NURSE ---
arrived by w/c from ED
[2025-09-08] MEDS: IPRATROPIUM/ALBUTEROL 3 ML NEB IH ×2 (17:56→23:26)
[2025-09-08] MEDS: SODIUM CHLORIDE 3% 15ML NEB 3 ML IH (17:57)
[2025-09-08 19:05] LABS: Lactic Acid Follow Up (RFLX 1) 2.9 mmol/L (0.7-2.1)
[2025-09-08 19:31] LABS: Troponin I < 0.01 ng/ml (0.00-0.034)
[2025-09-08] MEDS: PEG-ELECTROLYTE SOLN 4000ML BOTTLE 2000 ML PO (19:31)
[2025-09-08 19:53] LABS: Hemoglobin A1C 6.6 % (4.0-6.0)
[2025-09-08 20:26] LABS: Reflex Lactic (2 hrs) Add Lactic Reflex
[2025-09-08 20:32] LABS: POC Glucose,Bedside 308 gm/dL (70-110)
[2025-09-08] MEDS: PREGABALIN 50MG CAPSULE 150 MG PO (20:33)
[2025-09-08] MEDS: BUSPIRONE HCL 10 MG TABLET 15 MG PO (20:33)
[2025-09-08] MEDS: ZOLPIDEM TARTRATE 10 MG TABLET PO (20:33)
[2025-09-08] MEDS: MONTELUKAST SODIUM 10MG TAB 10 MG PO (20:33)
[2025-09-08] MEDS: HEPARIN SODIUM 5,000 UNIT/ML VIAL 5000 UNIT SUBCUT (20:33)
[2025-09-08] MEDS: PIPERCILLIN/TAZO 3.375 GM in 0.9 % SODIUM CHLORIDE 50 ML IV (20:34)
[2025-09-08] MEDS: humaLOG 100 UNITS/ML 10ML VIAL (SSI) SUBCUT (20:34)
[2025-09-08] MEDS: 0.9 % SODIUM CHLORIDE 250 ML IV (20:35)
[2025-09-08 21:16] LABS: Lactic Acid Follow up (RFLX 2) 3.4 mmol/L (0.7-2.1)
--- NOTE | 2025-09-08 22:08 | PC.NURSE ---
Patient started on bowel prep, able to take in 5 cups. Patient is too sleepy to keep drinking, patient spilled cup in the bed while falling asleep. 0
[2025-09-09] VITALS (9 sets, daily range): BP systolic 117–148; BP diastolic 68–83; PULSE 63–95; RESP 14–18; TEMP 35.9–37.2; O2SAT 90–96; BMI 36.8
[2025-09-09] MEDS: PIPERCILLIN/TAZO 3.375 GM in 0.9 % SODIUM CHLORIDE 50 ML IV ×4 (02:38→21:07)
--- NOTE | 2025-09-09 03:53 | PC.NURSE ---
Addendum entered by Bettye Colon RN 09/09/25 03:57: Patient very unsteady on feet, 2 assist due to patient nodding off while sitting on bedside and unsteady when standing. 3L NC, baseline. Expiratory wheezing and rhonchi noted. 2+ pitting edema noted to BLE. Original Note: Patient alert and oriented throughout shift, intermittently confused, talking out of head, will reorient. Patient super drowsy after medication administration, could not finish bowel prep, only completed a quarter of jug, patient became NPO at midnight. Patient hard to awaken at times. Patient requested to use bedside commode several times to urinate and would have small amounts, no burning noted. No bowel movement this shift. No complaints of pain. Bed alarm on. Refuses to wear non-skid socks at this time, requested only her home socks be used. Call light in reach.
[2025-09-09 04:04] LABS: Microscopic, Urine URINE MICROSCOPIC (MICROSCOPIC)
[2025-09-09 04:05] LABS: Bilirubin,Urine Negative (Negative); Color,Urine YELLOW (Yellow); Glucose,Urine (UA) Negative (Negative); Ketones,Urine Negative (Negative); Leukocyte Esterase,Urine Negative (Negative); PH,Urine 6.0 (5.0-8.5); Protein,Urine Negative (Negative); Specific Gravity, Urine 1.020 (1.005-1.030); Urobilinogen,Urine 0.2 EU/dl (0.2)
[2025-09-09 04:35] LABS: Bacteria,Urine 1+ /lpf; RBC,Urine Occasional #/hpf (0-3); WBC,Urine Occasional #/hpf (0-3)
[2025-09-09] MEDS: humaLOG 100 UNITS/ML 10ML VIAL (SSI) SUBCUT ×4 (05:36→21:09)
[2025-09-09 05:43] LABS: POC Glucose,Bedside 179 gm/dL (70-110)
--- NOTE | 2025-09-09 06:00 | US_ITS ---
FINAL REPORT TECHNIQUE: Sonographic images of the right upper quadrant were obtained. CLINICAL HISTORY: eval fro cirrhosis COMPARISON: CT performed 1 day prior FINDINGS: PANCREAS: Unremarkable. LIVER: Fatty infiltrated. No focal hepatic lesion. No intrahepatic biliary ductal dilatation. Portal vein is patent with normal directional flow. GALLBLADDER: No gallstones. No gallbladder wall thickening or pericholecystic fluid. COMMON DUCT: 3 mm. Normal for age. RIGHT KIDNEY: The right kidney measures 10.9 cm. There is no hydronephrosis, mass, or stone. FREE FLUID: None. IMPRESSION: Fatty infiltration of the liver, confirmed finding from CT performed 1 day prior. No new abnormality identified Reviewed, Interpreted and Dictated by Lesley Serrano MD Transcribed by Roas Nieves Authenticated and [facility]
[2025-09-09] MEDS: IPRATROPIUM/ALBUTEROL 3 ML NEB IH ×4 (06:06→22:59)
[2025-09-09 06:31] LABS: Hematocrit 33.4 % (37.0-47.0); Hemoglobin 10.7 g/dL (12.2-16.2); Immature Granulocytes % 3.0 %; Mean Corpuscular HGB Conc 32.0 g/dL (31.8-35.4); Mean Corpuscular Hemoglobin 27.9 pg (27.0-31.2); Mean Corpuscular Volume 87.0 fl (81-99); Nucleated Red Blood Cells % 0 %; Platelet Count 246 K/mm3 (142-424); Red Blood Count 3.84 M/mm3 (4.20-5.40); Red Cell Distribution Width-SD 41.6 fL; White Blood Count 19.3 K/mm3 (4.8-10.8)
[2025-09-09 06:42] LABS: Chloride 94 mmol/L (98-107)
[2025-09-09 06:43] LABS: Albumin Level 3.7 g/dl (3.5-5.0); Potassium 3.6 mmoL/L (3.5-5.1); Sodium 138 mmol/L (136-145)
[2025-09-09 06:45] LABS: Blood Urea Nitrogen 16 mg/dl (7-17); Creatinine Clearance Estimated 98 mL/min (50-200); Creatinine,Serum 0.90 mg/dl (0.52-1.04); Estimated Glomerular Filt Rate 65 ml/min (>60); GFR (African American) 78 ML/MIN (>60)
[2025-09-09 06:46] LABS: Alanine Aminotransferase 48 U/L (12-78); Albumin/Globulin Ratio 1.2 (1.1-1.8); Alkaline Phosphatase 120 U/L (38-126); Anion Gap 14.6 mEq/L (5-15); Aspartate Amino Transferase 65 U/L (14-36); Bilirubin,Total 0.6 mg/dl (0.2-1.3); Calcium 8.3 mg/dl (8.4-10.2); Carbon Dioxide 33 mmol/L (22.0-30.0); Globulin 3.0 g/dL (1.3-3.2); Glucose 161 mg/dl (74-100); Magnesium 1.8 mg/dl (1.6-2.3); Total Protein,Serum 6.7 g/dl (6.3-8.2)
--- NOTE | 2025-09-09 07:42 | P.PN_ITS ---
Subjective *Date: 09/09/25 *Time: 19:48 Interval history: Better today. Diuresing well. Starting to have bowel movements this morning. Pendent has not come out as of yet. Stable on 3 L oxygen. Afebrile. No nausea or vomiting. Medical Exam Vital signs and Labs for Last 24 Hours: Vital Signs Temp Pulse Pulse Resp BP BP Pulse Ox 09/09/25 06:50 09/09/25 06:07 85 09/09/25 06:07 89 09/09/25 06:07 90 L 09/09/25 05:00 09/09/25 04:00 96.7 F L 77 16 117/83 94 L 09/09/25 02:47 09/09/25 01:00 09/09/25 00:00 97.7 F 76 18 117/68 94 L 09/08/25 23:27 78 09/08/25 23:27 76 09/08/25 23:00 09/08/25 21:49 129/76 09/08/25 21:00 09/08/25 20:00 09/08/25 20:00 97.5 F L 79 16 81/46 L 90 L 09/08/25 19:10 09/08/25 17:57 82 20 09/08/25 17:57 82 09/08/25 17:57 85 09/08/25 17:57 92 L 09/08/25 17:15 09/08/25 17:13 97.6 F 79 18 108/71 L 92 L 09/08/25 17:00 92 L 09/08/25 16:28 98.2 F 78 20 109/87 L 09/08/25 16:05 83 99/51 L 92 L 09/08/25 15:56 86 90/50 L 92 L 09/08/25 15:50 80 93/48 L 91 L 09/08/25 15:45 86 99/57 L 92 L 09/08/25 15:40 81 101/52 L 93 L 09/08/25 15:37 89 95/53 L 93 L 09/08/25 15:30 84 101/67 L 92 L 09/08/25 15:25 79 94/63 L 93 L 09/08/25 15:20 78 105/62 L 91 L 09/08/25 15:16 91 L 09/08/25 15:15 80 96/57 L 92 L 09/08/25 15:10 80 99/50 L 92 L 09/08/25 15:05 79 100/48 L 92 L 09/08/25 15:02 84 99/49 L 92 L 09/08/25 14:40 80 87/53 L 92 L 09/08/25 14:36 78 111/38 L 94 L 09/08/25 14:30 81 17 95/54 L 95 09/08/25 14:27 89 19 107/69 L 95 09/08/25 14:10 79 94/51 L 90 L 09/08/25 14:00 77 19 87/54 L 92 L 09/08/25 13:51 80 13 95/38 L 88 L 09/08/25 13:46 79 18 101/65 L 91 L 09/08/25 13:40 77 21 88/69 L 92 L 09/08/25 13:35 74 18 80/54 L 91 L 09/08/25 13:33 71 14 91/46 L 90 L 09/08/25 12:50 73 13 102/51 L 98 09/08/25 12:40 73 12 107/53 L 98 09/08/25 12:30 75 16 99/53 L 95 09/08/25 12:21 78 15 62/29 L 95 09/08/25 12:15 79 18 86/61 L 96 09/08/25 12:10 77 17 101/54 L 95 09/08/25 12:06 75 16 97/51 L 94 L 09/08/25 12:05 74 17 94/55 L 95 09/08/25 11:48 98.9 F 90 22 102/38 L 85 L O2 Del Method O2 Flow Rate 09/09/25 06:50 Nasal Cannula 3 09/09/25 06:07 09/09/25 06:07 09/09/25 06:07 Nasal Cannula 3 09/09/25 05:00 Nasal Cannula 3 09/09/25 04:00 Room Air 09/09/25 02:47 Nasal Cannula 3 09/09/25 01:00 Nasal Cannula 3 09/09/25 00:00 Nasal Cannula 3 09/08/25 23:27 09/08/25 23:27 09/08/25 23:00 Nasal Cannula 3 09/08/25 21:49 09/08/25 21:00 Nasal Cannula 3 09/08/25 20:00 Nasal Cannula 3 09/08/25 20:00 Room Air 09/08/25 19:10 Nasal Cannula 3 09/08/25 17:57 09/08/25 17:57 09/08/25 17:57 09/08/25 17:57 Nasal Cannula 3 09/08/25 17:15 Nasal Cannula 3 09/08/25 17:13 Nasal Cannula 3 09/08/25 17:00 Nasal Cannula 3 09/08/25 16:28 Nasal Cannula 2 09/08/25 16:05 Nasal Cannula 2 09/08/25 15:56 Nasal Cannula 2 09/08/25 15:50 Nasal Cannula 2 09/08/25 15:45 Nasal Cannula 2 09/08/25 15:40 Nasal Cannula 2 09/08/25 15:37 Nasal Cannula 2 09/08/25 15:30 Nasal Cannula 2 09/08/25 15:25 Nasal Cannula 2 09/08/25 15:20 Nasal Cannula 2 09/08/25 15:16 Nasal Cannula 2 09/08/25 15:15 Nasal Cannula 2 09/08/25 15:10 Nasal Cannula 2 09/08/25 15:05 Nasal Cannula 2 09/08/25 15:02 Nasal Cannula 2 09/08/25 14:40 Nasal Cannula 4 09/08/25 14:36 Nasal Cannula 4 09/08/25 14:30 Nasal Cannula 4 09/08/25 14:27 Nasal Cannula 4 09/08/25 14:10 Nasal Cannula 4 09/08/25 14:00 Nasal Cannula 4 09/08/25 13:51 Nasal Cannula 4 09/08/25 13:46 Nasal Cannula 4 09/08/25 13:40 Nasal Cannula 4 09/08/25 13:35 Nasal Cannula 4 09/08/25 13:33 Nasal Cannula 4 09/08/25 12:50 09/08/25 12:40 09/08/25 12:30 Nasal Cannula 4 09/08/25 12:21 Nasal Cannula 4 09/08/25 12:15 Nasal Cannula 4 09/08/25 12:10 Nasal Cannula 4 09/08/25 12:06 Nasal Cannula 4 09/08/25 12:05 Nasal Cannula 4 09/08/25 11:48 Nasal Cannula 2 Intake and Output 09/08/25 09/08/25 09/09/25 15:59 23:59 07:59 Intake Total 1120 / 2320 1250 / 1250 Output Total 300 / 300 0 / 0 Balance 2019 1250 / 1250 Intake: Intake, Oral Amount 420 / 1620 1200 / 1200 Intake, Total IV Amount 700 / 700 50 / 50 0.9 % Sodium Chloride 250 ml @ 250 / 250 250 mls/hr IV ONCE ONE Rx#: [id number] Piperacillin/Tazo 3.375 gm In 0 50 / 50 .9 % Sodium Chloride 50 ml @ 100 mls/hr IV ONCE ONE Rx#: [id number] Pipercillin/Tazo 3.375 gm In 0. 50 / 50 50 / 50 9 % Sodium Chloride 50 ml @ 100 mls/hr IV Q6H [facility] Rx#: [id number] Vancomycin/Water For Inj (Peg) 350 / 350 1.75 gm In 350 ml @ 175 mls/hr IV ONCE ONE Rx#:[id number] Output: Output, Urine Amount 300 / 300 0 / 0 Other: Number of Unmeasured Voids 1 1 Number of Bowel Movements 1 Weight 104.326 kg 88.649 kg 88.647 kg Patient Weight 09/09/25 23:59 Weight 88.647 kg Laboratory Results - last 24 hr 09/08/25 12:04: WBC 12.7 H, RBC 3.68 L, Hgb 10.5 L, Hct 31.5 L, MCV 85.6, MCH 28.5, MCHC 33.3, RDW 13.2, Plt Count 211, MPV 11.5 H, Neut % (Auto) 84.3 H, Lymph % (Auto) 6.8 L, [place] % (Auto) 4.6, Eos % (Auto) 0.2, Baso % (Auto) 0.4, Neut # (Auto) 10.8 H, Lymph # (Auto) 0.9, [place] # (Auto) 0.6, Eos # (Auto) 0.0, Baso # (Auto) 0.1, Sodium 134 L, Potassium 4.2, Chloride 95 L, Carbon Dioxide 30, Anion Gap 13.2, BUN 13, Creatinine 0.80, Estimated Creat Clear 56, Estimated GFR 74, Est GFR ( Amer) 90, Glucose 180 H, Hemoglobin A1c 6.6 H, Lactate 2.0, Calcium 9.1, Total Bilirubin 0.9, AST 66 H, ALT 45, Alkaline Phosphatase 117, Troponin I < 0.01, NT-Pro-B Natriuret Pep 946 H, Total Protein 6.0 L, Albumin 3.5, Globulin 2.5, Albumin/Globulin Ratio 1.4, Lipase 31 09/08/25 12:06: VBG pH 7.42 H, VBG pCO2 42.9, VBG pO2 45.4 H, VBG HCO3 27.1, VBG Total CO2 28.5 H, VBG O2 Saturation 80.1 H, VBG Base Excess 2.6 H, VBG Lactic Acid 2.3 H 09/08/25 12:14: Chlamy pneumoniae PCR Not detected, Adenovirus (PCR) Not detected, B. pertussis DNA (PCR) Not detected, Coronavirus OC43 (PCR) Not detected, Coronavirus HKU1 (PCR) Not detected, Coronavirus 229E (PCR) Not detected, SARS-CoV-2 (PCR) Not detected 09/08/25 12:14: SARS-CoV-2 (PCR) Not detected, Coronavirus NL63 (PCR) Not detected, Human Metapneumovir PCR Not detected, Influenza A (H1) PCR Not detected, Influ A (H1N1/09) PCR Not detected, Influenza A (H3) PCR Not detected, Influenza Type A (PCR) Not detected, Influenza A Untype (PCR) Not detected, Influenza Type B (PCR) Not detected 09/08/25 12:14: Influenza Type B (PCR) Not detected, M. pneumoniae (PCR) Not detected, Parainfluenza 1 (PCR) Not detected, Parainfluenza 2 (PCR) Not detected, Parainfluenza 3 (PCR) Not detected, Parainfluenza 4 (PCR) Not detected, RSV (PCR) Not detected, Entero/Rhino (PCR) Not detected 09/08/25 15:11: Troponin I < 0.01 09/08/25 18:21: Lactate 2.9 H, Troponin I < 0.01 09/08/25 20:25: POC Glucose 308 H* 09/08/25 20:56: Lactate 3.4 H 09/09/25 03:50: Urine Color Yellow, Urine Appearance Clear, Urine pH 6.0, Ur Specific [place] 1.020, Urine Protein Negative, Urine Glucose (UA) Negative, Urine Ketones Negative, Urine Blood Negative, Urine Nitrate Negative, Urine Bilirubin Negative, Urine Urobilinogen 0.2, Ur Leukocyte Esterase Negative, Urine RBC Occasional, Urine WBC Occasional, Ur Squamous Epith Cells 10-20, Urine Bacteria 1+ 09/09/25 05:19: WBC 19.3 H D, RBC 3.84 L, Hgb 10.7 L, Hct 33.4 L, MCV 87.0, MCH 27.9, MCHC 32.0, RDW 13.4, Plt Count 246, MPV 11.7 H, Neut % (Auto) 80.0, Lymph % (Auto) 12.0, [place] % (Auto) 4.7, Eos % (Auto) 0.1, Baso % (Auto) 0.2, Neut # (Auto) 15.4 H, Lymph # (Auto) 2.3, [place] # (Auto) 0.9, Eos # (Auto) 0.0, Baso # (Auto) 0.0 09/09/25 05:26: POC Glucose 179 H I & O for Labs for Last 24 Hours: Intake & Output 09/06/25 09/07/25 09/08/25 09/09/25 23:59 23:59 23:59 23:59 Intake Total 1120 / 2320 1250 / 1250 Output Total 300 / 300 0 / 0 Balance 2019 1250 / 1250 Weight 88.649 kg 88.647 kg Microbiology Reports for the Last 24 Hours: Microbiology 09/08/25 01:30 Sputum - Expectorated Sputum Gram Stain - Final Constitutional: Present no acute distress, obese and chronically ill appearing Head: Present atraumatic and normocephalic ENT: Present normal exam Respiratory: Present normal respiratory effort; Absent rhonchi, wheezes or crackles Cardiac: Present Reg Rate and Rhythm GI: Present soft and normal bowel sounds; Absent distention Extremities: Present normal inspection, full ROM and edema (1+, improving) Skin: Present intact; Absent erythema Neuro: Present Grossly Intact, alert, awake, oriented x 3 and moves all extremities Assessment and Plan *Assessment and plan (1) Ingestion of foreign body: Status: Acute Qualifiers: Encounter type: initial encounter Qualified Code(s): T18.9XXA - Foreign body of alimentary tract, part unspecified, initial encounter Category: Medical Code(s): T18.9XXA - Foreign body of alimentary tract, part unspecified, initial encounter (2) Abdominal pain: Status: Acute Qualifiers: Abdominal location: right lower quadrant Qualified Code(s): R10.31 - Right lower quadrant pain Category: Medical Code(s): R10.9 - Unspecified abdominal pain (3) Acute exacerbation of CHF (congestive heart failure): Status: Acute Qualifiers: Heart failure type: unspecified Qualified Code(s): I50.9 - Heart failure, unspecified Category: Medical Code(s): I50.9 - Heart failure, unspecified (4) Pneumonia: Status: Acute Qualifiers: Laterality: unspecified laterality Lung location: unspecified part of lung Pneumonia type: due to unspecified organism Qualified Code(s): J18.9 - Pneumonia, unspecified organism Category: Medical Code(s): J18.9 - Pneumonia, unspecified organism (5) History of COPD: Status: Acute Category: Medical Code(s): Z87.09 - Personal history of other diseases of the respiratory system (6) Obesity (BMI 30.0-34.9): Status: Acute Category: Medical Code(s): E66.811 - Obesity, class 1 (7) Neuropathy: Status: Acute Category: Medical Code(s): G62.9 - Polyneuropathy, unspecified (8) Type 2 diabetes mellitus: Status: Acute Qualifiers: Diabetes mellitus penitentiary insulin use: with penitentiary use Diabetes mellitus complication status: with neurologic complications Diabetes mellitus complication detail: with polyneuropathy Qualified Code(s): E11.42 - Type 2 diabetes mellitus with diabetic polyneuropathy; 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 Moctezuma is a 55-year-old female with COPD, obesity, neuropathy, depression who was just admitted for pneumonia. Completed her antibiotic course with Levaquin 750 mg daily. Presents with worsening swelling in her legs and shortness of breath. Workup in the ER concerning for persistent left lower lobe pneumonia and volume overload. Discussed case with ER, request admission for continued treatment of pneumonia and diuresis. I decided to admit for aggressive diuresis, pulmonology consult, optimization of care. Problems addressed as follows: #Community-acquired pneumonia COPD Chronic hypoxemic respiratory failure -CT of chest per my review showing left lower lobe consolidation. Persistent and somewhat worse. -Baseline oxygen 2 L during the day, 4 L at night ? White count increased to 19. - Necessitating 3 L oxygen to maintain sats above 90%. Wean as tolerated. - Repeat CBC, CMP, magnesium ordered for morning - Kidney function remains normal with BUN 16, creatinine 0.9. Sodium 138 - Continue Zosyn 3.375 g every 6 hours. - Continue Singulair 10 mg nightly - Continue Trelegy 200 inhaler daily Foreign body Fatty liver - noted incidentally on abdomen CT and pelvis. Per my review, appears to have pendent or some type of piece of jewelry in her distal ileum near ileocecal junction. - Tolerating GoLytely. Screening stools. Has not come out as of yet. Will get KUB in the morning to evaluate for movement of pendent. Holding on surgery consult - Right upper quadrant ultrasound with fatty infiltration of the liver. No gallstones and gallbladder. No scarring of liver, patent portal vein Neuropathy: Continue Lyrica 150 mg times a day #HFpEF ? Frankly overloaded on presentation with 3+ edema. Diuresing well. Received Lasix 40 mg IV. Continue 80 mg IV twice daily. - BNP only 946 however given her oxygen requirement, volume overload in legs, concern for component of CHF exacerbation. Previous echo obtained on 09/02 with inability to estimate RVSP. LV hyperdynamic. #Anxiety/depression: # Insomnia: - continue home BuSpar 15 mg twice daily, Cymbalta 60 mg, Paxil 10 mg nightly. Will hold Valium. Continue Ambien 10 mg nightly. Monitor for toxicity and oversedation #GERD: Continue PPI. Diabetes confirmed. Holding metformin. A1c 6.6. Morning glucose 161. Continue fingersticks ACHS with sliding scale insulin Full code DVT prophylaxis: Lovenox 40 mg Cardiac diet
[2025-09-09 07:52] LABS: Hypochromasia 1+; Total Cells Counted 100
[2025-09-09] MEDS: FLUTICASONE/UMECLIDIN/VILANTER 200/62.5/25MCG INHALER 1 PUFF IH (09:22)
[2025-09-09] MEDS: SODIUM PHOS/BIPHOSPHATE FLEET 133ML ENEMA 133 ML RC (09:23)
[2025-09-09] MEDS: ASPIRIN EC 81MG TABLET 81 MG PO (09:23)
[2025-09-09] MEDS: PREGABALIN 50MG CAPSULE 150 MG PO ×3 (09:23→21:08)
[2025-09-09] MEDS: BUSPIRONE HCL 10 MG TABLET 15 MG PO ×2 (09:23→21:08)
[2025-09-09] MEDS: HEPARIN SODIUM 5,000 UNIT/ML VIAL 5000 UNIT SUBCUT ×3 (09:23→21:09)
[2025-09-09] MEDS: FUROSEMIDE 100MG/10ML VIAL 80 MG IV ×2 (09:23→16:35)
--- NOTE | 2025-09-09 10:03 | HMH.PTEV ---
Physical Therapy Evaluation Rehab PT IP Evaluation Start: 09/08/25 16:38 Freq: ONCE Status: Active Protocol: Document 09/09/25 10:00 JESU (Rec: 09/09/25 10:03 JESU [id number]) Subjective/History History History Per H&P: Ms. Moctezuma is a 55-year-old female who was recently admitted for pneumonia. Just discharged last week on oral antibiotics to complete course. Chronic respiratory failure on 2 to 4 L. Has history of COPD and obesity. She presented for injection with pain clinic and they were concerned for her dyspnea and sent her to the ER for evaluation. On arrival she complains of shortness of breath, increased swelling in her legs over the past several days. Says she felt good for 1 day after admission but then began feeling bad again with worsening shortness of breath and weakness. Denies chest pain, nausea, vomiting. Is alert and oriented x 4. On workup in the ER, found to have persistent pneumonia on chest imaging. Also found incidentally to have foreign body in her distal ileum. White count still marginally elevated at 12.7. Severe edema in her lower extremities. Medicine consulted for further treatment of persistent pneumonia and possible CHF exacerbation along with foreign body in colon. On arrival to the floor, patient complains of some mild abdominal discomfort. Feeling better on 3 L oxygen. Initiated on diuretics, no significant urine output as of yet. States she has been taking her diuretics at home but has noticed increased swelling. Denies any jonathon fever. Denies productive cough. Also states that she has got some constipation and has not had a good bowel movement in a day or 2. Subjective Subjective Pt reports she lives with her mom in a home. Pt normally IND with all mobility without AD use. New diagnosis of No cancer in past 12 months? [facility] How much help from another person do you currently need... Turning from your None back to your side while in a flat bed without using bedrails? Moving from lying on None back to sitting on the side of a flat bed without using bedrails? Moving to and from a None bed to a chair ( including a wheelchair)? Standing up from a None chair using your arms? (e.g., wheelchair, bedside chair) Walking in hospital None room? Climbing 3-5 steps A little with a railing? Mobility Score 23 Mobility Level [facility] Mobility Walk 25 feet or more Mobility Calculator Rehab PT IP Eval Objective Appearance Patient Behavior Appropriate,Cooperative Patient Orientation Person Difficulty following none instructions Speech Pattern Clear Ambulation Patient Able to Yes Ambulate Ambulation Observation IP General Gait No Deviations/Normal Pattern Observation Ambulation Distance 30 (feet) Ambulation Assistive None Device Ambulation Ability Supervision/Stand by Balance Ability to Arise Able, uses arms to help Sitting Balance Steady, safe Standing Balance Steady, wide stance Dynamic Sitting Good Balance Ability Dynamic Standing Good Balance Ability Transfers Bed Transfer Ability Supervision/Stand by Sit to Stand Bed Supervision/Stand by Transfer Ability Rehab PT IP prob,goals,plan Problems Date of Evaluation: 09/09/25 Rehab Potential Rehab Potential Innapropriate for Skilled Therapy Discharge Plan PT Discharge Plan Pt presents at her baseline in functional mobility and would not benefit from skilled acute care PT at this time. Pt would benefit from OP physical therapy (pt requests [facility]) to address impaired strength and endurance. Eval Complexity Eval Charge Codes 08901 - Moderate Complexity PHYSICIAN CERTIFICATION: I certify the specified therapy services for Coretta Moctezuma are required, authorized, and reviewed every 30 days.
[2025-09-09 10:30] LABS: C-Reactive Protein 222.0 mg/L (0-4)
--- NOTE | 2025-09-09 10:57 | HMH.OTEV ---
OT Evaluation Rehab OT IP Evaluation Start: 09/08/25 16:38 Freq: ONCE Status: Active Protocol: Document 09/09/25 10:48 [facility] (Rec: 09/09/25 10:57 [facility] [id number]) Rehab OT IP Assessment Subjective History Pt oriented x 3 on arrival. Pt agreeable to engage in therapy evaluation. Pt admitted on 09/08/25 due to AMS and PNA. History and physical: Ms. Moctezuma is a 55-year-old female who was recently admitted for pneumonia. Just discharged last week on oral antibiotics to complete course. Chronic respiratory failure on 2 to 4 L. Has history of COPD and obesity. She presented for injection with pain clinic and they were concerned for her dyspnea and sent her to the ER for evaluation. On arrival she complains of shortness of breath, increased swelling in her legs over the past several days. Says she felt good for 1 day after admission but then began feeling bad again with worsening shortness of breath and weakness. Denies chest pain, nausea, vomiting. Is alert and oriented x 4. On workup in the ER, found to have persistent pneumonia on chest imaging. Also found incidentally to have foreign body in her distal ileum. White count still marginally elevated at 12.7. Severe edema in her lower extremities. Medicine consulted for further treatment of persistent pneumonia and possible CHF exacerbation along with foreign body in colon. On arrival to the floor, patient complains of some mild abdominal discomfort. Feeling better on 3 L oxygen. Initiated on diuretics, no significant urine output as of yet. States she has been taking her diuretics at home but has noticed increased swelling. Denies any jonathon fever. Denies productive cough. Also states that she has got some constipation and has not had a good bowel movement in a day or 2. Subjective Prior to being in the hospital, pt lived at home with her mom. Pt claims normally she is independent with all ADLs and IADLs. Pt does not use any type of AE during functional transfers. Pt does wear oxygen at all times. She no longer drives. Objective Patient Orientation Person,Place,Birthday Right Upper WFL Extremity Gross ROM Left Upper Extremity WFL Gross ROM Bed Mobility bed mobility-scooting,bed mobility - supine/sit Assist Level Supervision/Stand by Transfer Training Sit/Stand Transfer Assist Level Supervision/Stand by Chair Transfer Supervision/Stand by Ability Chair Transfer Sit to/from Ambulatory Technique Lower Body Dressing Standby Assistance Ability Performing Toilet Standby Assistance Hygiene Ability Overall Commode/ Standby Assistance Toilet Transfer Ability Commode/Toilet Sit to/from Ambulatory Transfer Technique Rehab OT IP prob,goals,plan Problems Date of Evaluation: 09/09/25 Rehab Potential Rehab Potential Innapropriate for Skilled Therapy Discharge Plan OT Discharge Plan Pt appears to be at her baseline with functional transfers and ADL assistance. Pt can return home with mother once she is medically stable. No further tx required at this time. Eval Complexity Eval Charge Codes 77617 - Moderate Complexity PHYSICIAN CERTIFICATION: I certify the specified therapy services for Coretta Moctezuma are required, authorized, and reviewed every 30 days.
[2025-09-09 11:50] LABS: POC Glucose,Bedside 175 gm/dL (70-110)
--- NOTE | 2025-09-09 12:18 | HMH.PHAINT1 ---
Pharmacy Intervention Comments: MEDICATION RECONCILIATION COMPLETED ON PATIENT USING EXTERNAL FILL HISTORY FROM PHARMACY AND DISCHARGE SUMMARY FROM PREVIOUS ADMISSION. -BRET ROGERS, SUSYD
[2025-09-09 16:12] LABS: POC Glucose,Bedside 222 gm/dL (70-110)
--- NOTE | 2025-09-09 17:18 | PC.WOUNDNOTE ---
pt resting supine in bed at this time. abx given per jan. fsbs treated with ssi. no complaints of pain this shift. requiring 3LNC to maintain sats >90%. able to ambulate to BR with standby assistance. strict I&O measurements. pt had one BM this shift with no evidence of foreign body. hat remains in toilet for stool collection. enema given with morning meds. no needs at this time. call light within reach.
[2025-09-09 20:22] LABS: POC Glucose,Bedside 174 gm/dL (70-110)
[2025-09-09] MEDS: ZOLPIDEM TARTRATE 10 MG TABLET PO (21:08)
[2025-09-09] MEDS: MONTELUKAST SODIUM 10MG TAB 10 MG PO (21:08)
[2025-09-09] MEDS: PARoxetine 10MG TABLET 10 MG PO (21:08)
[2025-09-09] MEDS: PANTOPRAZOLE 40MG TABLET 40 MG PO (21:09)
[2025-09-09] MEDS: PRAVASTATIN 40MG TAB 40 MG PO (21:09)
[2025-09-10] VITALS (10 sets, daily range): BP systolic 117–152; BP diastolic 66–85; PULSE 52–100; RESP 12–18; TEMP 36.5–36.8; O2SAT 89–94; BMI 34.6
[2025-09-10] MEDS: NICOTINE 21MG/24HR PATCH 21 MG TD ×2 (01:01→21:23)
--- NOTE | 2025-09-10 01:05 | PC.NURSE ---
patient requested nicotine patch, notified hospitalist, nicotine patch ordered and administered
[2025-09-10] MEDS: PIPERCILLIN/TAZO 3.375 GM in 0.9 % SODIUM CHLORIDE 50 ML IV ×4 (03:45→21:18)
[2025-09-10] MEDS: IPRATROPIUM/ALBUTEROL 3 ML NEB IH ×4 (06:19→22:35)
[2025-09-10] MEDS: FLUTICASONE/UMECLIDIN/VILANTER 200/62.5/25MCG INHALER 1 PUFF IH (06:19)
[2025-09-10 06:24] LABS: Hematocrit 38.0 % (37.0-47.0); Immature Granulocytes % 2.4 %; Mean Corpuscular HGB Conc 31.6 g/dL (31.8-35.4); Mean Corpuscular Hemoglobin 27.7 pg (27.0-31.2); Mean Corpuscular Volume 87.8 fl (81-99); Nucleated Red Blood Cells % 0.1 %; Platelet Count 272 K/mm3 (142-424); Red Blood Count 4.33 M/mm3 (4.20-5.40); Red Cell Distribution Width-SD 43.2 fL; White Blood Count 24.5 K/mm3 (4.8-10.8)
[2025-09-10 06:27] LABS: Hemoglobin 12.2 g/dL (12.2-16.2)
[2025-09-10 06:32] LABS: Albumin Level 3.9 g/dl (3.5-5.0); Chloride 92 mmol/L (98-107); Potassium 3.1 mmoL/L (3.5-5.1); Sodium 136 mmol/L (136-145)
[2025-09-10 06:34] LABS: Blood Urea Nitrogen 17 mg/dl (7-17); Creatinine Clearance Estimated 92 mL/min (50-200); Creatinine,Serum 0.90 mg/dl (0.52-1.04); Estimated Glomerular Filt Rate 65 ml/min (>60); GFR (African American) 78 ML/MIN (>60)
[2025-09-10 06:35] LABS: Alanine Aminotransferase 45 U/L (12-78); Albumin/Globulin Ratio 1.3 (1.1-1.8); Alkaline Phosphatase 157 U/L (38-126); Anion Gap 14.1 mEq/L (5-15); Aspartate Amino Transferase 58 U/L (14-36); Bilirubin,Total 0.6 mg/dl (0.2-1.3); Calcium 8.2 mg/dl (8.4-10.2); Carbon Dioxide 33 mmol/L (22.0-30.0); Globulin 2.9 g/dL (1.3-3.2); Glucose 148 mg/dl (74-100); Magnesium 1.9 mg/dl (1.6-2.3); Total Protein,Serum 6.8 g/dl (6.3-8.2)
--- NOTE | 2025-09-10 08:21 | XR_ITS ---
FINAL REPORT CLINICAL HISTORY: eval foreign body in terminal ileum COMPARISON: CT abdomen and pelvis 09/08/2025 FINDINGS: A single supine view of the abdomen was obtained. Rounded metallic foreign body is still in the right lower quadrant. It has changed orientation compared to the prior CT scan. This can not be confirmed to have passed through the terminal ileum. No evidence of small-bowel obstruction. No renal stones identified. No acute osseous abnormality. IMPRESSION: Foreign body in the right lower quadrant as above. Reviewed, Interpreted and Dictated by Lesley Serarno MD Transcribed by Zahira Joseph Authenticated and [facility]
--- NOTE | 2025-09-10 08:25 | SW/DCPLANNER ---
I spoke w/ patient regarding plans once medically stable for discharge. Patient expressed that she resides at home w/ her mom and is interested in outpatient PT in [place]. Patient is established w/ Behavioral Health services in [facility]. Patient stated that her mother is able to transport her to all appointments. CM will continue to follow up and assist in setting up outpatient PT services if ordered by MD. Discharge date is unknown at this time.
[2025-09-10 09:34] LABS: Total Cells Counted 100
[2025-09-10 09:36] LABS: RBC Morphology Normal
--- NOTE | 2025-09-10 09:40 | EXP.PULM.CON ---
History of Present Illness History of present illness: Ms. Moctezuma is a 55-year-old female significant smoking history, diagnosis of COPD, at baseline on 2 L nasal cannula oxygen supplementation, using Trelegy 200 inhaler, and Lasix the hospital worsening respiratory status discharged home on Trelegy 200 inhaler along with ceftriaxone azithromycin for possible community-acquired pneumonia presented to the ER again with worsening respiratory send pulmonary was called for further evaluation and management. Admits continued worsening respiratory distress upon discharge. [facility] Disclaimer: The information contained in this section may have been updated after the patient was seen, as this information can be updated by other users. 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 current occupational exposures/hazards: No caffeine: Yes Have you lived/traveled outside US in past 30 days?: No Contact w/someone who lives/traveled outside US past 30 days?: No Exposure to someone with infectious disease in past 14 days?: No Do you have a fever (greater than 100.4 F or 38 C)?: No Have you tested positive for COVID-19?: No Exposed to someone with COVID-19 in past 14 days?: No Do you have a sore throat?: No Do you have a cough?: No Do you have any weakness?: No Do you have any diarrhea?: No Are you experiencing any unusual bleeding?: No Do you have any muscle aches/pain?: No Do you have any abdominal pain?: No Are you experiencing loss of taste or smell?: No Review of Systems Constitutional Constitutional: Reports anorexia, Reports body ache(s) and Reports fatigue Eyes Eyes: Denies eye discharge, Denies dry eyes, Denies irritation and Denies itchy eyes ENT Ears, Nose, Mouth, and Throat: Denies epistaxis, Denies facial pain, Denies lip swelling and Denies throat swelling *Cardiovascular Cardiovascular: Reports dyspnea, Reports dyspnea on exertion, Reports leg edema and Reports orthopnea *Respiratory Respiratory: Denies change in phlegm color, Reports chest congestion, Reports cough, Reports dyspnea, Reports dyspnea on exertion, Denies excessive phlegm production, Denies hemoptysis, Denies pain on inspiration, Denies pain with cough and Reports wheezing *Gastrointestinal Gastrointestinal: Denies abdominal pain, Denies belching and Denies cramping *Musculoskeletal Musculoskeletal: Reports back pain, Reports myalgias and Reports other (No small joint swelling or Pain) Psychiatric Psychiatric: Denies homicidal ideation and Denies suicidal ideation Endocrine Endocrine: Reports fatigue and Denies heat intolerance Hematologic/Lymphatic Hematologic/Lymphatic: Denies easy bleeding and Denies lymphadenopathy Allergic/Immunologic Allergic/Immunologic: Denies itchy eyes, Denies lip swelling, Denies throat swelling and Reports wheezing Pulmonology Exam Inpatient Vital signs and Labs for Last 24 Hours: Temp Pulse Resp BP Pulse Ox O2 Del Method O2 Flow Rate 97.9 F 82 16 127/83 94 L Nasal Cannula 4 09/10/25 08:00 09/10/25 08:00 09/10/25 08:00 09/10/25 08:00 09/10/25 08:00 09/10/25 09:00 09/10/25 09:00 Laboratory Results - last 24 hr 09/09/25 05:19: C-Reactive Protein 222.0 H 09/09/25 11:43: POC Glucose 175 H 09/09/25 16:05: POC Glucose 222 H 09/09/25 20:15: POC Glucose 174 H 09/10/25 05:18: WBC 24.5 H* D, RBC 4.33, Hgb 12.2 D, Hct 38.0, MCV 87.8, MCH 27.7, MCHC 31.6 L, RDW 13.7, Plt Count 272, MPV 11.4 H, Neut % (Auto) 67.2, Lymph % (Auto) 18.4, Bond % (Auto) 10.8 H, Eos % (Auto) 0.8, Baso % (Auto) 0.4, Neut # (Auto) 16.5 H, Lymph # (Auto) 4.5, Bond # (Auto) 2.7 H, Eos # (Auto) 0.2, Baso # (Auto) 0.1, Total Counted 100, Neutrophils % (Manual) 68, Lymphocytes % (Manual) 18, Monocytes % (Manual) 13 H, Eosinophils % (Manual) 1, Platelet Estimate Normal, RBC Morphology Normal, Sodium 136, Potassium 3.1 L, Chloride 92 L, Carbon Dioxide 33 H, Anion Gap 14.1, BUN 17, Creatinine 0.90, Estimated Creat Clear 92, Estimated GFR 65, Est GFR ( Amer) 78, Glucose 148 H, Calcium 8.2 L, Magnesium 1.9, Total Bilirubin 0.6, AST 58 H, ALT 45, Alkaline Phosphatase 157 H, Total Protein 6.8, Albumin 3.9, Globulin 2.9, Albumin/Globulin Ratio 1.3 I & O for Labs for Last 24 Hours: Intake & Output 09/07/25 09/08/25 09/09/25 09/10/25 23:59 23:59 23:59 23:59 Intake Total 1120 / 2320 1640 / 2120 930 / 930 Output Total 300 / 300 2100 / 2300 200 / 200 Balance 820 / 2020 -460 / -180 730 / 730 Weight 195 lb 7 oz 195 lb 6.931 oz 183 lb 6.4 oz Microbiology Reports for the Last 24 Hours: Microbiology 09/08/25 01:30 Sputum - Expectorated Sputum Gram Stain - Final 09/08/25 01:30 Sputum - Expectorated Sputum Sputum Culture - Final 09/08/25 12:33 Blood Blood Culture - Preliminary NO GROWTH AFTER 24 HOURS 09/08/25 12:36 Blood Blood Culture - Preliminary NO GROWTH AFTER 24 HOURS Constitutional: Present moderate distress Head: Present normocephalic and atraumatic ENT: Present normal exam, normal oropharynx and mucous membranes moist Neck: Present normal inspection and full ROM Respiratory: Present prolonged expiratory phase, respiratory distress, wheezes and crackles; Absent able to speak in complete sentences Cardiac: Present S1/S2, Tachycardia and radial pulses present GI: Present soft and distention; Absent tenderness or guarding Rectal (female): Present deferred (female): Present deferred Skin: Present intact; Absent cyanosis or jaundice Neuro: Present alert, awake and oriented x 3 Extremities: Present normal inspection; Absent clubbing or cyanosis Psychiatric: Present normal affect and cooperative Meds Home Medications and Allergies Home Medications ?Medication ?Instructions ?Recorded ?Confirmed ?Type montelukast 10 mg tablet 10 mg PO HS 05/12/21 09/08/25 History pantoprazole 40 mg tablet,delayed 40 mg PO DAILY 07/07/21 09/08/25 History release aspirin 81 mg tablet,delayed 81 mg PO DAILY 03/23/22 09/08/25 History release metformin 500 mg tablet 500 mg PO DAILY 08/03/22 09/08/25 History pravastatin 40 mg tablet 40 mg PO DAILY 08/21/22 09/08/25 History fluticasone fur. 200 mcg-umeclid 1 inh inhalation DAILY 01/07/24 09/08/25 History 62.5 mcg-vilant 25 mcg inhalat.powder (Trelegy Ellipta) pregabalin 150 mg capsule (Lyrica) 150 mg PO TID #90 caps 08/28/25 09/08/25 Rx buspirone 15 mg tablet 15 mg PO BID 09/02/25 09/08/25 History diazepam 5 mg tablet 5 mg PO DAILY 09/02/25 09/08/25 History duloxetine 60 mg capsule,delayed 60 mg PO DAILY 09/02/25 09/08/25 History release estradiol 0.01% (0.1 mg/gram) 2 g vaginal DAILY 09/02/25 09/08/25 History vaginal cream fluticasone propionate 50 2 spray intranasal DAILY 09/02/25 09/08/25 History mcg/actuation nasal spray,suspension furosemide 20 mg tablet 20 mg PO DAILY 09/02/25 09/08/25 History paroxetine HCl 10 mg tablet 10 mg PO HS 09/02/25 09/08/25 History zolpidem 10 mg tablet 10 mg PO HS 09/02/25 09/08/25 History baclofen 10 mg tablet 10 mg PO TID 09/09/25 09/09/25 History New Prescriptions to Start Prescriptions: Allergies Allergy/AdvReac Type Severity Reaction Status Date / Time Sulfa (Sulfonamide Allergy Rash Verified 08/28/25 13:02 Antibiotics) Results Laboratory Findings 09/10/25 05:18 09/10/25 05:18 Abnormal lab findings: Abnormal Labs 09/08/25 09/08/25 09/08/25 12:04 12:06 18:21 WBC 12.7 H RBC 3.68 L Hgb 10.5 L Hct 31.5 L MCHC MPV 11.5 H Neut % (Auto) 84.3 H Lymph % (Auto) 6.8 L Bond % (Auto) Neut # (Auto) 10.8 H Bond # (Auto) Neutrophils % (Manual) Monocytes % (Manual) VBG pH 7.42 H VBG pO2 45.4 H VBG Total CO2 28.5 H VBG O2 Saturation 80.1 H VBG Base Excess 2.6 H VBG Lactic Acid 2.3 H Sodium 134 L Potassium Chloride 95 L Carbon Dioxide Glucose 180 H POC Glucose Hemoglobin A1c 6.6 H Lactate 2.9 H Calcium AST 66 H Alkaline Phosphatase C-Reactive Protein NT-Pro-B Natriuret Pep 946 H Total Protein 6.0 L 09/08/25 09/08/25 09/09/25 20:25 20:56 05:19 WBC 19.3 H D RBC 3.84 L Hgb 10.7 L Hct 33.4 L MCHC MPV 11.7 H Neut % (Auto) Lymph % (Auto) Bond % (Auto) Neut # (Auto) 15.4 H Bond # (Auto) Neutrophils % (Manual) 86 H Monocytes % (Manual) VBG pH VBG pO2 VBG Total CO2 VBG O2 Saturation VBG Base Excess VBG Lactic Acid Sodium Potassium Chloride 94 L Carbon Dioxide 33 H Glucose 161 H POC Glucose 308 H* Hemoglobin A1c Lactate 3.4 H Calcium 8.3 L AST 65 H Alkaline Phosphatase C-Reactive Protein 222.0 H NT-Pro-B Natriuret Pep Total Protein 09/09/25 09/09/25 09/09/25 05:26 11:43 16:05 WBC RBC Hgb Hct MCHC MPV Neut % (Auto) Lymph % (Auto) Bond % (Auto) Neut # (Auto) Bond # (Auto) Neutrophils % (Manual) Monocytes % (Manual) VBG pH VBG pO2 VBG Total CO2 VBG O2 Saturation VBG Base Excess VBG Lactic Acid Sodium Potassium Chloride Carbon Dioxide Glucose POC Glucose 179 H 175 H 222 H Hemoglobin A1c Lactate Calcium AST Alkaline Phosphatase C-Reactive Protein NT-Pro-B Natriuret Pep Total Protein 09/09/25 09/10/25 20:15 05:18 WBC 24.5 H* D RBC Hgb Hct MCHC 31.6 L MPV 11.4 H Neut % (Auto) Lymph % (Auto) Bond % (Auto) 10.8 H Neut # (Auto) 16.5 H Bond # (Auto) 2.7 H Neutrophils % (Manual) Monocytes % (Manual) 13 H VBG pH VBG pO2 VBG Total CO2 VBG O2 Saturation VBG Base Excess VBG Lactic Acid Sodium Potassium 3.1 L Chloride 92 L Carbon Dioxide 33 H Glucose 148 H POC Glucose 174 H Hemoglobin A1c Lactate Calcium 8.2 L AST 58 H Alkaline Phosphatase 157 H C-Reactive Protein NT-Pro-B Natriuret Pep Total Protein Assessment and Plan *Assessment and plan (1) Acute on chronic hypoxic respiratory failure: Status: Resolved Category: Medical Code(s): J96.21 - Acute and chronic respiratory failure with hypoxia (2) Pneumonia: Status: Acute Qualifiers: Laterality: unspecified laterality Lung location: unspecified part of lung Pneumonia type: due to unspecified organism Qualified Code(s): J18.9 - Pneumonia, unspecified organism Category: Medical Code(s): J18.9 - Pneumonia, unspecified organism Plan Ms. Moctezuma is a 55-year-old female significant smoking history, diagnosis of COPD, at baseline on 2 L nasal cannula oxygen supplementation, using Trelegy 200 inhaler, and Lasix the hospital worsening respiratory status discharged home on Trelegy 200 inhaler along with ceftriaxone azithromycin for possible community-acquired pneumonia presented to the ER again with worsening respiratory send pulmonary was called for further evaluation and management. CTA chest mixed with upper lobe infiltrates improving from prior, worsening left lower lobe consolidative changes. No evidence of pulmonary embolism. Afebrile. Hemodynamically stable. Neutrophilic predominant leukocytosis upon admission continued to worsen. Complaints of respiratory viral PCR panel negative. Blood and sputum cultures no growth so far. Nasal MRSA PCR pending. Received vancomycin and cefepime in the ER. Currently receiving Zosyn. Also receiving diuretics for volume overload On examination severe respiratory distress. Bilateral diffuse wheezing. Plan: DuoNebs every 6 hours along with Pulmicort every 12 scheduled. Continue Zosyn for HAP. Add azithromycin 500 mg daily. Sputum cultures from this admission normal respiratory kaya. Blood cultures no growth 24 hours. Follow with repeat chest x-ray. Continue oxygen supplementation to maintain O2 saturation goal of 90% and above, completing 3 to 4 L nasal cannula oxygen supplementation.
[2025-09-10] MEDS: FLUTICASONE PROP 50MCG NASAL SPRAY 16GM 1 SPRAY NS (09:47)
[2025-09-10] MEDS: PREGABALIN 50MG CAPSULE 150 MG PO ×3 (09:48→21:18)
[2025-09-10] MEDS: POTASSIUM CHLORIDE 20MEQ TAB 40 MEQ PO ×3 (09:48→16:21)
[2025-09-10] MEDS: BUSPIRONE HCL 10 MG TABLET 15 MG PO ×2 (09:48→21:18)
[2025-09-10] MEDS: HEPARIN SODIUM 5,000 UNIT/ML VIAL 5000 UNIT SUBCUT ×3 (09:48→21:18)
[2025-09-10] MEDS: ASPIRIN EC 81MG TABLET 81 MG PO (09:48)
[2025-09-10] MEDS: FUROSEMIDE 100MG/10ML VIAL 80 MG IV ×2 (09:49→16:21)
[2025-09-10] MEDS: humaLOG 100 UNITS/ML 10ML VIAL (SSI) SUBCUT ×3 (11:26→21:19)
[2025-09-10 11:39] LABS: POC Glucose,Bedside 170 gm/dL (70-110)
--- NOTE | 2025-09-10 11:47 | XR_ITS ---
FINAL REPORT CLINICAL HISTORY: Hypoxia COMPARISON: 09/01/2025 FINDINGS: A portable view of the chest was obtained. Cardiac and mediastinal silhouettes are within normal limits. There is interval worsening of patchy left lung opacity with interval development of new patchy right lung opacity most consistent with multifocal pneumonia.. There is no pleural effusion or pneumothorax. IMPRESSION: Multifocal pneumonia. Reviewed, Interpreted and Dictated by Lesley Serrano MD Transcribed by Milagros Harper Authenticated and [facility]
[2025-09-10] MEDS: AZITHROMYCIN 500 MG in 0.9 % SODIUM CHLORIDE 250 ML 250 MG IV (13:39)
--- NOTE | 2025-09-10 15:29 | P.PN_ITS ---
Subjective *Date: 09/10/25 *Time: 15:29 Interval history: Denies nausea or vomiting. Remains short of breath. Having frequent stools. Afebrile overnight. Stable on 4 L overnight, 3 L at this time Medical Exam Vital signs and Labs for Last 24 Hours: Vital Signs Temp Pulse Pulse Resp BP Pulse Ox O2 Del Method 09/10/25 13:48 80 09/10/25 13:48 80 09/10/25 13:00 Nasal Cannula 09/10/25 12:00 98.3 F 100 H 18 142/85 H 93 L Nasal Cannula 09/10/25 11:00 Nasal Cannula 09/10/25 09:00 Nasal Cannula 09/10/25 08:00 Nasal Cannula 09/10/25 08:00 97.9 F 82 16 127/83 94 L Nasal Cannula 09/10/25 06:30 Nasal Cannula 09/10/25 06:18 93 L Nasal Cannula 09/10/25 05:00 Nasal Cannula 09/10/25 04:00 98.3 F 91 H 12 132/80 93 L Nasal Cannula 09/10/25 03:00 Nasal Cannula 09/10/25 01:00 Nasal Cannula 09/10/25 00:00 97.8 F 52 L 14 132/66 89 L Nasal Cannula 09/09/25 23:00 Nasal Cannula 09/09/25 23:00 72 09/09/25 23:00 75 09/09/25 23:00 96 Nasal Cannula 09/09/25 21:00 Nasal Cannula 09/09/25 20:00 Nasal Cannula 09/09/25 20:00 98.2 F 95 H 14 148/72 H 92 L Nasal Cannula 09/09/25 18:45 Nasal Cannula 09/09/25 18:33 74 09/09/25 18:33 70 09/09/25 18:33 96 Nasal Cannula 09/09/25 16:59 Nasal Cannula 09/09/25 16:00 98.9 F 63 18 131/74 96 Nasal Cannula O2 Flow Rate 09/10/25 13:48 09/10/25 13:48 09/10/25 13:00 3 09/10/25 12:00 4 09/10/25 11:00 3 09/10/25 09:00 4 09/10/25 08:00 4 09/10/25 08:00 09/10/25 06:30 4 09/10/25 06:18 4 09/10/25 05:00 4 09/10/25 04:00 2 09/10/25 03:00 4 09/10/25 01:00 4 09/10/25 00:00 2 09/09/25 23:00 4 09/09/25 23:00 09/09/25 23:00 09/09/25 23:00 4 09/09/25 21:00 4 09/09/25 20:00 4 09/09/25 20:00 2 09/09/25 18:45 3 09/09/25 18:33 09/09/25 18:33 09/09/25 18:33 4 09/09/25 16:59 3 09/09/25 16:00 2 Intake and Output 09/09/25 09/10/25 09/10/25 23:59 07:59 15:59 Intake Total 50 / 2120 530 / 1630 1100 / 1630 Output Total 350 / 2300 200 / 2000 1800 / 2000 Balance -300 / -180 330 / -370 -700 / -370 Intake: Intake, Oral Amount 480 / 1280 800 / 1280 Intake, Total IV Amount 50 / 200 50 / 350 300 / 350 Azithromycin 500 mg In 0.9 % 250 / 250 Sodium Chloride 250 ml @ 250 mls/hr IV 1100 LEON Rx#:[id number] Pipercillin/Tazo 3.375 gm In 0. 50 / 150 50 / 100 50 / 100 9 % Sodium Chloride 50 ml @ 100 mls/hr IV Q6H LEON Rx#:[id number] Output: Output, Urine Amount 350 / 2300 200 / 2000 1800 / 2000 Other: Number of Bowel Movements 1 1 1 Weight 83.189 kg 83.189 kg Patient Weight 09/10/25 23:59 Weight 83.189 kg Laboratory Results - last 24 hr 09/09/25 16:05: POC Glucose 222 H 09/09/25 20:15: POC Glucose 174 H 09/10/25 05:18: WBC 24.5 H* D, RBC 4.33, Hgb 12.2 D, Hct 38.0, MCV 87.8, MCH 27.7, MCHC 31.6 L, RDW 13.7, Plt Count 272, MPV 11.4 H, Neut % (Auto) 67.2, Lymph % (Auto) 18.4, [place] % (Auto) 10.8 H, Eos % (Auto) 0.8, Baso % (Auto) 0.4, Neut # (Auto) 16.5 H, Lymph # (Auto) 4.5, [place] # (Auto) 2.7 H, Eos # (Auto) 0.2, Baso # (Auto) 0.1, Total Counted 100, Neutrophils % (Manual) 68, Lymphocytes % (Manual) 18, Monocytes % (Manual) 13 H, Eosinophils % (Manual) 1, Platelet Estimate Normal, RBC Morphology Normal, Sodium 136, Potassium 3.1 L, Chloride 92 L, Carbon Dioxide 33 H, Anion Gap 14.1, BUN 17, Creatinine 0.90, Estimated Creat Clear 92, Estimated GFR 65, Est GFR ( Amer) 78, Glucose 148 H, Calcium 8.2 L, Magnesium 1.9, Total Bilirubin 0.6, AST 58 H, ALT 45, Alkaline Phosphatase 157 H, Total Protein 6.8, Albumin 3.9, Globulin 2.9, Albumin/Globulin Ratio 1.3 09/10/25 11:22: POC Glucose 170 H I & O for Labs for Last 24 Hours: Intake & Output 09/07/25 09/08/25 09/09/25 09/10/25 23:59 23:59 23:59 23:59 Intake Total 1120 / 2320 1640 / 2120 1630 / 1630 Output Total 300 / 300 2100 / 2300 1999 / 1999 Balance 820 / 2020 -460 / -180 -370 / -370 Weight 88.649 kg 88.647 kg 83.189 kg Microbiology Reports for the Last 24 Hours: Microbiology 09/08/25 12:33 Blood Blood Culture - Preliminary NO GROWTH AFTER 48 HOURS 09/08/25 12:36 Blood Blood Culture - Preliminary NO GROWTH AFTER 48 HOURS 09/08/25 01:30 Sputum - Expectorated Sputum Gram Stain - Final 09/08/25 01:30 Sputum - Expectorated Sputum Sputum Culture - Final Constitutional: Present no acute distress, obese and chronically ill appearing Head: Present atraumatic and normocephalic ENT: Present normal exam Respiratory: Present normal respiratory effort; Absent rhonchi, wheezes or crackles Cardiac: Present Reg Rate and Rhythm GI: Present soft and normal bowel sounds; Absent distention Extremities: Present normal inspection, full ROM and edema (1+, improving) Skin: Present intact; Absent erythema Neuro: Present Grossly Intact, alert, awake, oriented x 3 and moves all extremities Assessment and Plan *Assessment and plan (1) Ingestion of foreign body: Status: Acute Qualifiers: Encounter type: initial encounter Qualified Code(s): T18.9XXA - Foreign body of alimentary tract, part unspecified, initial encounter Category: Medical Code(s): T18.9XXA - Foreign body of alimentary tract, part unspecified, initial encounter (2) Abdominal pain: Status: Acute Qualifiers: Abdominal location: right lower quadrant Qualified Code(s): R10.31 - Right lower quadrant pain Category: Medical Code(s): R10.9 - Unspecified abdominal pain (3) Acute exacerbation of CHF (congestive heart failure): Status: Acute Qualifiers: Heart failure type: unspecified Qualified Code(s): I50.9 - Heart failure, unspecified Category: Medical Code(s): I50.9 - Heart failure, unspecified (4) Pneumonia: Status: Acute Qualifiers: Laterality: unspecified laterality Lung location: unspecified part of lung Pneumonia type: due to unspecified organism Qualified Code(s): J18.9 - Pneumonia, unspecified organism Category: Medical Code(s): J18.9 - Pneumonia, unspecified organism (5) History of COPD: Status: Acute Category: Medical Code(s): Z87.09 - Personal history of other diseases of the respiratory system (6) Obesity (BMI 30.0-34.9): Status: Acute Category: Medical Code(s): E66.811 - Obesity, class 1 (7) Neuropathy: Status: Acute Category: Medical Code(s): G62.9 - Polyneuropathy, unspecified (8) Type 2 diabetes mellitus: Status: Acute Qualifiers: Diabetes mellitus longwall shearer operator insulin use: with longwall shearer operator use Diabetes mellitus complication status: with neurologic complications Diabetes mellitus complication detail: with polyneuropathy Qualified Code(s): E11.42 - Type 2 diabetes mellitus with diabetic polyneuropathy; Z79.4 - MCC (current) use of insulin Category: Medical Code(s): E11.9 - Type 2 diabetes mellitus without complications (9) Degenerative joint disease (DJD) of lumbar spine: Status: Chronic Qualifiers: Spinal osteoarthritis complication: with radiculopathy Qualified Code(s): M47.26 - Other spondylosis with radiculopathy, lumbar region Category: Medical Code(s): M47.816 - Spondylosis without myelopathy or radiculopathy, lumbar region (10) Depression: Status: Acute Category: Medical Code(s): F32.A - Depression, unspecified Plan Ms. Moctezuma is a 55-year-old female with COPD, obesity, neuropathy, depression who was just admitted for pneumonia. Completed her antibiotic course with Levaquin 750 mg daily. Presents with worsening swelling in her legs and shortness of breath. Workup in the ER concerning for persistent left lower lobe pneumonia and volume overload. Discussed case with ER, request admission for continued treatment of pneumonia and diuresis. I decided to admit for aggressive diuresis, pulmonology consult, optimization of care. Problems addressed as follows: #Community-acquired pneumonia COPD Chronic hypoxemic respiratory failure -CT of chest per my review showing left lower lobe consolidation. Persistent and somewhat worse; x-ray obtained today showing multifocal pneumonia. -Discussed case with pulmonology, recommend broadening coverage. Continue Zosyn 3.375 g every 6 hours. Will add azithromycin 500 mg daily. -Goal sats greater 90%, continue to wean oxygen as tolerated. On 4 L at night. Requiring 3 during the day at this time -White count continues to increase, up to 24 today. Afebrile overnight. Repeat CBC, CMP, magnesium ordered for the morning -Kidney function remained stable BUN 17, creatinine 0.9. - Continue Singulair 10 mg nightly - Continue Trelegy 200 inhaler daily Foreign body Fatty liver - noted incidentally on abdomen CT and pelvis. Per my review, appears to have pendent or some type of piece of jewelry in her distal ileum near ileocecal junction. - Tolerating GoLytely. Having numerous stools. KUB obtained this morning. Pendent still remains at distal ileum. Does not appear to be obstructing. Continue with serial exams and monitoring stool output. - Right upper quadrant ultrasound with fatty infiltration of the liver. No gallstones and gallbladder. No scarring of liver, patent portal vein Neuropathy: Continue Lyrica 150 mg times a day #HFpEF ? Frankly overloaded on presentation with 3+ edema. Diuresing well. Received Lasix 40 mg IV. Continue Lasix 80 mg IV twice daily. - BNP only 946 however given her oxygen requirement, volume overload in legs, concern for component of CHF exacerbation. Previous echo obtained on 09/02 with inability to estimate RVSP. LV hyperdynamic. - Will plan to discharge on dose of diuretic when appropriate for discharge home. #Anxiety/depression: # Insomnia: - continue home BuSpar 15 mg twice daily, Cymbalta 60 mg, Paxil 10 mg nightly. Will hold Valium. Continue Ambien 10 mg nightly. Monitor for toxicity and oversedation #GERD: Continue PPI. Diabetes confirmed. Holding metformin. A1c 6.6. Morning glucose 161. Continue fingersticks ACHS with sliding scale insulin Full code DVT prophylaxis: Lovenox 40 mg Cardiac diet
--- OUTSIDE RECORDS SUMMARY | 2025-09-10 15:36 | XMS_ITS | Clinical Summary ---
Author Organization Healthcare Address [address] [place] [address] Care Team Providers Care Instructional Media Services Technician Name Role Phone Arline Roberts Primary [...] of 2) 2019 UKY-Influenza Vaccine (#1) 2025 [id number] Vaccine Completed 07/25/2024, 10/25/2023, 05/11/2023, Additional history [...] patient's age to complete [place] [address] Care Teams Instructional Media Services Technician Relationship Specialty Start Date End Date Arline Roberts PA [address] [place] [address] [place] [phone] [facility] - General 04/08/21
--- OUTSIDE RECORDS SUMMARY | 2025-09-10 15:36 | XMS_ITS | Encounter Summary ---
Author Organization [facility] Address [address] [place] [address] Care Team Providers Care Windows Server Engineer Name Role Phone Tutu Vance MD Primary Care Provider [phone] Encounter Details Date Type Department Care Team (Late st Contact Info) Description 02/26/2025 Results Follow-Up [facility] [address] [place] [address] Caroline Herrera, VOCATIONAL ADVISER [address] [facility] [address] [place] [address] [phone] Social History Tobacco Use Types Packs/Day Years [...] Industry Job Start Date Job End Date [employer] Not on file Not on file Not on file documented as of this encounter Plan of Treatment Upcoming Encounters Date Type Department Care Team (Late st Contact Info) Description 10/20/2025 9:30 AM EST Office Visit [facility] [address] [place] [address] Nancy Pfeiffer APRN [address] [place] [address] documented as of this encounter Visit Diagnoses Not on filedocumented in this encounter Care Teams Windows Server Engineer Relationship Specialty Start Date End Date Tutu Vance MD [address] [place] [address] PCP - General Emergency Medicine 05/14/23 documented as of this encounter
--- OUTSIDE RECORDS SUMMARY | 2025-09-10 15:36 | XMS_ITS | Clinical Summary ---
Author Organization [employer] ([place], [place], [place], [place]) Address [address] [place] [address] Care Team Providers Care Donations Attendant Name Role Phone Unavailable Primary Care Provider Unavailabl e Social History Tobacco Use Types Packs/Day Years Used Date Smoking Tobacco: Never Assessed Comments Unknown Sex and Gender Information Value Date Recorded Sex Assigned at Not on file Legal Sex Female 4:13 PM CDT Gender Identity Not on file Sexual Orientation Not on file Plan of Treatment Not on file Insurance [facility] MEDICARE O MEDICAID OF [place]
--- OUTSIDE RECORDS SUMMARY | 2025-09-10 15:36 | XMS_ITS | Clinical Summary ---
Author Organization Located Within [facility] Address [address] [place] [address] Care Team Providers Care Electroencephalograph Technician Name Role Phone None, Physician Primary Care [...] 136 - 145 mmol/L 12/21/2024 6:13 AM [facility] ([id number]) Comment:Excess protein and/o r lipids can falsely decrease sodium levels (pseudo hyponatremia). Potassium 4.3 3.5 - 5.1 mmol/L 12/21/2024 6:13 AM [facility] ([id number]) Comment:Falsely elevated pot assium can occur in patients with high WBC or platelet counts. Chloride 105 98 - 107 mmol/L 12/21/2024 6:13 AM [facility] ([id number]) Comment:Falsely elevated chl oride levels can be seen in patients taking bromide containing medications. Carbon Dioxide 26 22 - 29 mmol/L 12/21/2024 6:13 AM [facility] ([id number]) Anion Gap 9 5 - 13 mmol/L 12/21/2024 6:13 AM [facility] ([id number]) Comment:Calculation: Na - (C l + CO2) Glucose, Random 75 71 - 99 mg/dL 12/21/2024 6:13 AM [facility] ([id number]) Blood Urea Nitrogen (BUN) 9(L) 10 - 20 mg/dL 12/21/2024 6:13 AM [facility] ([id number]) Creatinine, Blood 0.82 0.55 - 1.02 mg/dL 12/21/2024 6:13 AM [facility] ([id number]) BUN/Creatinine Ratio 11.0 RATIO 12/21/2024 6:13 AM [facility] ([id number]) Estimated GFR (Cr) 84 >60 mL/min/1.7 3m2 12/21/2024 6:13 AM [facility] ([id number]) Comment:eGFR calculated base d on IDMS traceable, enzymatic creatinine method using the CKD-EPI 2020 equation. Calcium 9.1 8.4 - 10.2 mg/dL 12/21/2024 6:13 AM [facility] ([id number]) Blood VENOUS BLOOD SPECIMEN / Unknown Venipuncture / Unknown 12/21/2024 5:28 AM EST 12/21/2024 5:44 AM EST us Claudia Vazquez MD LAB BLOOD ORDERABLES Final Resul t [facility] ([id number]) [address] [place] [address] from Last 3 Months or Most Recently Relevant to Health Maintenance Insurance [employer] MEDICARE REPLACEMENT Member Subscriber Plan / Payer (Ef fective 2024-Present) Name:Coretta Moctezuma Relation to Subscriber:Self Name:Coretta Moctezuma Payer ID:[id number] (NAIC) Type:Medicare Address: [address] [id number] MEDICAID [place] Member Subscriber Plan / Payer (Ef fective 2024-Present) Name:Coretta Moctezuma Relation to Subscriber:Self Name:Coretta Moctezuma Payer ID:[id number] Group ID:Not on file Type:Medicaid Address: [address] [facility] [place] [address] Advance Directives * Full Code (Latest Code Status on File) Date Activated Date Inactivated Comments 12/18/2024 9:41 AM 12/22/2024 5:51 PM Care Teams Electroencephalograph Technician Relationship Specialty Start Date End Date None, Physician PCP - General 12/18/24
--- OUTSIDE RECORDS SUMMARY | 2025-09-10 15:36 | XMS_ITS | Clinical Summary ---
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
--- OUTSIDE RECORDS SUMMARY | 2025-09-10 15:36 | XMS_ITS | Referral Summary ---
Author Organization [employer] ([place], [place], [place], [place]) Address [address] [place] [address] Care Team Providers Care Post Framer Name Role Phone Unavailable Primary Care Provider Unavailabl e Social History Tobacco Use Types Packs/Day Years Used Date Smoking Tobacco: Never Assessed Comments Unknown Sex and Gender Information Value Date Recorded Sex Assigned at Not on file Legal Sex Female 4:13 PM CDT Gender Identity Not on file Sexual Orientation Not on file Plan of Treatment Not on file Insurance [facility] MEDICARE O MEDICAID OF [place]
--- OUTSIDE RECORDS SUMMARY | 2025-09-10 15:36 | XMS_ITS | Encounter Summary ---
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 on file Not on file documented as of this encounter Miscellaneous Notes * Telephone Encounter - Mary Toribio MA - 04/22/2024 3:21 PM EDT Patient needs to schedule annual exam documented in this encounter Plan of Treatment Upcoming Encounters Date Type Department Care Team (Late st Contact Info) Description 10/20/2025 9:30 AM EST Office Visit [facility] [address] [place] [address] Nancy Pfeiffer APRN [address] [place] [address] documented as of this encounter Visit Diagnoses Diagnosis Hormone replacement therapy (HRT) documented in this encounter Care Teams Ice Cream Scooper Relationship Specialty Start Date End Date Tutu Vance MD [address] [place] [address] PCP - General Emergency Medicine 05/14/23 documented as of this encounter
--- OUTSIDE RECORDS SUMMARY | 2025-09-10 15:36 | XMS_ITS | Encounter Summary ---
[facility] Organization 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 Not on file documented as of this encounter Plan of Treatment Upcoming Encounters Date Type Department Care Team (Late st Contact Info) Description 10/20/2025 9:30 AM EST Office Visit [facility] [address] [place] [address] Nancy Pfeiffer APRN [address] [place] [address] documented as of this encounter Visit Diagnoses Diagnosis Hormone replacement therapy (HRT) documented in this encounter Care Teams Bilingual Trainer Relationship Specialty Start Date End Date Tutu Vance MD [address] [place] [address] PCP - General Emergency Medicine 05/14/23 documented as of this encounter
[2025-09-10 16:33] LABS: POC Glucose,Bedside 174 gm/dL (70-110)
--- NOTE | 2025-09-10 17:16 | PC.NURSE ---
pt resting supine in bed. requiring 3LNC to maintain sats >90%. abx given per jan. ambulates with standby assistance to BR. no evidence of passing foreign body in stool today. fsbs treated with ssi. no needs at this time. call light within reach.
[2025-09-10] MEDS: BUDESONIDE 0.5MG/2ML NEB 0.5 MG IH (18:15)
[2025-09-10] MEDS: ONDANSETRON 4MG/2ML VIAL 4 MG IV (19:52)
[2025-09-10 20:22] LABS: POC Glucose,Bedside 158 gm/dL (70-110)
[2025-09-10] MEDS: PRAVASTATIN 40MG TAB 40 MG PO (21:18)
[2025-09-10] MEDS: PARoxetine 10MG TABLET 10 MG PO (21:18)
[2025-09-10] MEDS: MONTELUKAST SODIUM 10MG TAB 10 MG PO (21:18)
[2025-09-10] MEDS: PANTOPRAZOLE 40MG TABLET 40 MG PO (21:18)
[2025-09-10] MEDS: ZOLPIDEM TARTRATE 10 MG TABLET PO (21:18)
[2025-09-11] VITALS (11 sets, daily range): BP systolic 108–127; BP diastolic 59–81; PULSE 64–108; RESP 14–18; TEMP 36.3–37.3; O2SAT 86–96; BMI 32.9
[2025-09-11] MEDS: PIPERCILLIN/TAZO 3.375 GM in 0.9 % SODIUM CHLORIDE 50 ML IV ×4 (01:36→21:00)
[2025-09-11] MEDS: IPRATROPIUM/ALBUTEROL 3 ML NEB IH ×5 (02:00→23:12)
[2025-09-11] MEDS: ONDANSETRON 4MG/2ML VIAL 4 MG IV (06:05)
[2025-09-11 06:17] LABS: Hematocrit 39.3 % (37.0-47.0); Hemoglobin 12.6 g/dL (12.2-16.2); Immature Granulocytes % 4.3 %; Mean Corpuscular HGB Conc 32.1 g/dL (31.8-35.4); Mean Corpuscular Hemoglobin 27.9 pg (27.0-31.2); Mean Corpuscular Volume 87.1 fl (81-99); Nucleated Red Blood Cells % 0.1 %; Platelet Count 286 K/mm3 (142-424); Red Blood Count 4.51 M/mm3 (4.20-5.40); Red Cell Distribution Width-SD 43.0 fL; White Blood Count 22.9 K/mm3 (4.8-10.8)
[2025-09-11 06:21] LABS: POC Glucose,Bedside 184 gm/dL (70-110)
[2025-09-11] MEDS: BUDESONIDE 0.5MG/2ML NEB 0.5 MG IH ×2 (06:23→18:37)
[2025-09-11 06:47] LABS: Albumin Level 3.8 g/dl (3.5-5.0); Chloride 92 mmol/L (98-107); Potassium 3.5 mmoL/L (3.5-5.1); Sodium 133 mmol/L (136-145)
[2025-09-11] MEDS: humaLOG 100 UNITS/ML 10ML VIAL (SSI) SUBCUT ×4 (06:49→21:00)
[2025-09-11 06:50] LABS: Alanine Aminotransferase 39 U/L (12-78); Albumin/Globulin Ratio 1.2 (1.1-1.8); Alkaline Phosphatase 141 U/L (38-126); Anion Gap 12.5 mEq/L (5-15); Aspartate Amino Transferase 47 U/L (14-36); Bilirubin,Total 0.7 mg/dl (0.2-1.3); Blood Urea Nitrogen 11 mg/dl (7-17); Calcium 8.8 mg/dl (8.4-10.2); Carbon Dioxide 32 mmol/L (22.0-30.0); Creatinine Clearance Estimated 98 mL/min (50-200); Creatinine,Serum 0.80 mg/dl (0.52-1.04); Estimated Glomerular Filt Rate 74 ml/min (>60); GFR (African American) 90 ML/MIN (>60); Globulin 3.1 g/dL (1.3-3.2); Glucose 170 mg/dl (74-100); Total Protein,Serum 6.9 g/dl (6.3-8.2)
[2025-09-11 07:19] LABS: RBC Morphology Normal; Total Cells Counted 100
[2025-09-11] MEDS: FUROSEMIDE 100MG/10ML VIAL 80 MG IV ×2 (08:46→16:29)
[2025-09-11] MEDS: BUSPIRONE HCL 10 MG TABLET 15 MG PO ×2 (08:47→20:59)
[2025-09-11] MEDS: FLUTICASONE PROP 50MCG NASAL SPRAY 16GM 1 SPRAY NS (08:47)
[2025-09-11] MEDS: HEPARIN SODIUM 5,000 UNIT/ML VIAL 5000 UNIT SUBCUT ×3 (08:47→21:00)
[2025-09-11] MEDS: ASPIRIN EC 81MG TABLET 81 MG PO (08:47)
[2025-09-11] MEDS: POTASSIUM CHLORIDE 20MEQ TAB 40 MEQ PO ×2 (08:48→12:10)
[2025-09-11] MEDS: PREGABALIN 50MG CAPSULE 150 MG PO ×3 (08:51→20:58)
--- NOTE | 2025-09-11 10:02 | HMH.PHAAMS2 ---
- Antimicrobial Stewardship Review 48 hour timeout review Stewardship interventions: 48 hour timeout review, reviewed - no change Comments: EMPIRIC THERAPY FOR SUSPECTED PNEUMONIA ZOSYN + ZITHROMAX, NO CULTURE RESULTS AVAILABLE
--- NOTE | 2025-09-11 11:24 | EXP.PULM.PN ---
Subjective *Date: 09/11/25 *Time: 12:46 Interval history: No acute blaine events overnight. Patient denies any new respiratory complaints. Continued to complain of respiratory distress. Pulmonology Exam Inpatient Vital signs and Labs for Last 24 Hours: Temp Pulse Resp BP Pulse Ox O2 Del Method O2 Flow Rate 97.4 F L 101 H 18 125/81 90 L Nasal Cannula 3 09/11/25 08:00 09/11/25 10:06 09/11/25 08:00 09/11/25 08:00 09/11/25 10:06 09/11/25 10:06 09/11/25 10:06 Laboratory Results - last 24 hr 09/10/25 11:22: POC Glucose 170 H 09/10/25 16:16: POC Glucose 174 H 09/10/25 20:03: POC Glucose 158 H 09/11/25 05:18: WBC 22.9 H*, RBC 4.51, Hgb 12.6, Hct 39.3, MCV 87.1, MCH 27.9, MCHC 32.1, RDW 13.7, Plt Count 286, MPV 11.7 H, Neut % (Auto) 58.0, Lymph % (Auto) 22.2, Bartholomew % (Auto) 13.8 H, Eos % (Auto) 1.4, Baso % (Auto) 0.3, Neut # (Auto) 13.3 H, Lymph # (Auto) 5.1 H, Bartholomew # (Auto) 3.2 H, Eos # (Auto) 0.3, Baso # (Auto) 0.1, Total Counted 100, Neutrophils % (Manual) 64, Lymphocytes % (Manual) 24, Monocytes % (Manual) 9, Eosinophils % (Manual) 3, Platelet Estimate Normal, RBC Morphology Normal, Sodium 133 L, Potassium 3.5, Chloride 92 L, Carbon Dioxide 32 H, Anion Gap 12.5, BUN 11 D, Creatinine 0.80, Estimated Creat Clear 98, Estimated GFR 74, Est GFR ( Amer) 90, Glucose 170 H, Calcium 8.8, Total Bilirubin 0.7, AST 47 H, ALT 39, Alkaline Phosphatase 141 H, Total Protein 6.9, Albumin 3.8, Globulin 3.1, Albumin/Globulin Ratio 1.2 09/11/25 06:10: POC Glucose 184 H Temp Pulse Resp BP Pulse Ox O2 Del Method O2 Flow Rate 97.9 F 82 16 127/83 94 L Nasal Cannula 4 09/10/25 08:00 09/10/25 08:00 09/10/25 08:00 09/10/25 08:00 09/10/25 08:00 09/10/25 09:00 09/10/25 09:00 Laboratory Results - last 24 hr 09/09/25 05:19: C-Reactive Protein 222.0 H 09/09/25 11:43: POC Glucose 175 H 09/09/25 16:05: POC Glucose 222 H 09/09/25 20:15: POC Glucose 174 H 09/10/25 05:18: WBC 24.5 H* D, RBC 4.33, Hgb 12.2 D, Hct 38.0, MCV 87.8, MCH 27.7, MCHC 31.6 L, RDW 13.7, Plt Count 272, MPV 11.4 H, Neut % (Auto) 67.2, Lymph % (Auto) 18.4, Bartholomew % (Auto) 10.8 H, Eos % (Auto) 0.8, Baso % (Auto) 0.4, Neut # (Auto) 16.5 H, Lymph # (Auto) 4.5, Bartholomew # (Auto) 2.7 H, Eos # (Auto) 0.2, Baso # (Auto) 0.1, Total Counted 100, Neutrophils % (Manual) 68, Lymphocytes % (Manual) 18, Monocytes % (Manual) 13 H, Eosinophils % (Manual) 1, Platelet Estimate Normal, RBC Morphology Normal, Sodium 136, Potassium 3.1 L, Chloride 92 L, Carbon Dioxide 33 H, Anion Gap 14.1, BUN 17, Creatinine 0.90, Estimated Creat Clear 92, Estimated GFR 65, Est GFR ( Amer) 78, Glucose 148 H, Calcium 8.2 L, Magnesium 1.9, Total Bilirubin 0.6, AST 58 H, ALT 45, Alkaline Phosphatase 157 H, Total Protein 6.8, Albumin 3.9, Globulin 2.9, Albumin/Globulin Ratio 1.3 I & O for Labs for Last 24 Hours: Intake & Output 09/08/25 09/09/25 09/10/25 09/11/25 23:59 23:59 23:59 23:59 Intake Total 1120 / 2320 1640 / 2120 2090 / 2570 700 / 700 Output Total 300 / 300 2100 / 2300 2300 / 3300 1000 / 1000 Balance 820 / 2020 -460 / -180 -210 / -730 -300 / -300 Weight 195 lb 7 oz 195 lb 6.931 oz 183 lb 6.4 oz 174 lb 9.6 oz Intake & Output 09/07/25 09/08/25 09/09/25 09/10/25 23:59 23:59 23:59 23:59 Intake Total 1120 / 2320 1640 / 2120 930 / 930 Output Total 300 / 300 2100 / 2300 200 / 200 Balance 820 / 2019 -460 / -180 730 / 730 Weight 195 lb 7 oz 195 lb 6.931 oz 183 lb 6.4 oz Microbiology Reports for the Last 24 Hours: Microbiology 09/09/25 09:24 Nose - Nasal MRSA Culture - Final Negative 09/08/25 12:33 Blood Blood Culture - Preliminary NO GROWTH AFTER 48 HOURS 09/08/25 12:36 Blood Blood Culture - Preliminary NO GROWTH AFTER 48 HOURS 09/08/25 01:30 Sputum - Expectorated Sputum Gram Stain - Final 09/08/25 01:30 Sputum - Expectorated Sputum Sputum Culture - Final Microbiology 09/08/25 01:30 Sputum - Expectorated Sputum Gram Stain - Final 09/08/25 01:30 Sputum - Expectorated Sputum Sputum Culture - Final 09/08/25 12:33 Blood Blood Culture - Preliminary NO GROWTH AFTER 24 HOURS 09/08/25 12:36 Blood Blood Culture - Preliminary NO GROWTH AFTER 24 HOURS Constitutional: Present moderate distress Head: Present normocephalic and atraumatic ENT: Present normal exam, normal oropharynx and mucous membranes moist Neck: Present normal inspection and full ROM Respiratory: Present prolonged expiratory phase, respiratory distress, wheezes and crackles; Absent able to speak in complete sentences Cardiac: Present S1/S2, Tachycardia and radial pulses present GI: Present soft and distention; Absent tenderness or guarding Rectal (female): Present deferred (female): Present deferred Skin: Present intact; Absent cyanosis or jaundice Neuro: Present alert, awake and oriented x 3 Extremities: Present normal inspection; Absent clubbing or cyanosis Psychiatric: Present normal affect and cooperative Assessment and Plan *Assessment and plan (1) Acute on chronic hypoxic respiratory failure: Status: Resolved Category: Medical Code(s): J96.21 - Acute and chronic respiratory failure with hypoxia (2) Pneumonia: Status: Acute Qualifiers: Laterality: unspecified laterality Lung location: unspecified part of lung Pneumonia type: due to unspecified organism Qualified Code(s): J18.9 - Pneumonia, unspecified organism Category: Medical Code(s): J18.9 - Pneumonia, unspecified organism Plan Ms. Moctezuma is a 55-year-old female significant smoking history, diagnosis of COPD, at baseline on 2 L nasal cannula oxygen supplementation, using Trelegy 200 inhaler, and Lasix the hospital worsening respiratory status discharged home on Trelegy 200 inhaler along with ceftriaxone azithromycin for possible community-acquired pneumonia presented to the ER again with worsening respiratory send pulmonary was called for further evaluation and management. CTA chest mixed with upper lobe infiltrates improving from prior, worsening left lower lobe consolidative changes. No evidence of pulmonary embolism. Afebrile. Hemodynamically stable. Neutrophilic predominant leukocytosis upon admission continued to worsen. Complaints of respiratory viral PCR panel negative. Blood and sputum cultures no growth so far. Nasal MRSA PCR pending. Received vancomycin and cefepime in the ER. Currently receiving Zosyn. Also receiving diuretics for volume overload On initial examination severe respiratory distress. Bilateral diffuse wheezing. Interval update: No acute respiratory events overnight. Relatively stable leukocytosis at 24.5 yesterday and 23 today. Continue to receive Zosyn and azithromycin Nasal MRSA screen negative. Will closely monitor. Chest x-ray from yesterday continue to show bilateral pneumonia slight worsening, from this morning improving. Despite her volume overload and this admission the possibility of concomitant hospital-acquired pneumonia cannot be completely rule out at this point of time given bilateral infiltrates. Improved wheezing on auscultation. CRP relatively stable. Plan: DuoNebs every 6 hours along with Pulmicort every 12 scheduled. Continue Zosyn and azithromycin 500 mg daily. Sputum cultures from this admission normal respiratory kaya. Blood cultures no growth 24 hours. Repeat sputum cultures Continue oxygen supplementation to maintain O2 saturation goal of 90% and above, completing 3 to 4 L nasal cannula oxygen supplementation.
--- NOTE | 2025-09-11 11:31 | XR_ITS ---
FINAL REPORT TECHNIQUE: Single view chest CLINICAL HISTORY: Hypoxia COMPARISON: 09/10/2025 FINDINGS: A single view of the chest was obtained. The heart and mediastinum are within normal limits. There are patchy airspace opacities bilaterally, suspicious for pneumonia which are stable from prior exam. There is no effusion or pneumothorax. IMPRESSION: Stable patchy airspace opacity suspicious for pneumonia. Recommend follow-up. Reviewed, Interpreted and Dictated by Sylvie Glover MD Transcribed by Rosa Nieves Authenticated and [facility]
[2025-09-11 11:47] LABS: C-Reactive Protein 227.6 mg/L (0-4)
[2025-09-11 11:59] LABS: Procalcitonin 0.136 ng/mL (0.0-2.0)
[2025-09-11] MEDS: AZITHROMYCIN 500 MG in 0.9 % SODIUM CHLORIDE 250 ML 250 MG IV (12:09)
[2025-09-11] MEDS: ACETAMINOPHEN 325MG TAB 650 MG PO (12:20)
--- NOTE | 2025-09-11 16:45 | PC.NURSE ---
AOX4 WITH EPISODES OF CONFUSION. STILL REQUIRES 3LNC FOR O2 SUPPORT. HAS AMBULATED IN ROOM WITH STANDBY ASSIST T/O SHIFT. NEW IV PLACED TO LEFT FOREARM.
[2025-09-11 16:46] LABS: POC Glucose,Bedside 157 gm/dL (70-110)
[2025-09-11 16:46] LABS: POC Glucose,Bedside 168 gm/dL (70-110)
--- NOTE | 2025-09-11 18:26 | P.PN_ITS ---
Subjective *Date: 09/11/25 *Time: 21:26 Interval history: Still having some mild confusion at night but better by morning. Stable shortness of breath. Imaging however not showing improvement in her pneumonia. Still crackles on exam. Having bowel movements, has not passed pendent yet. Afebrile. White count slowly improving, still elevated above 20. On 3 L oxygen this morning Medical Exam Vital signs and Labs for Last 24 Hours: Vital Signs Temp Pulse Pulse Resp BP Pulse Ox O2 Del Method 09/11/25 16:42 Nasal Cannula 09/11/25 16:00 98.9 F 106 H 16 113/79 86 L Nasal Cannula 09/11/25 15:00 Nasal Cannula 09/11/25 13:00 Nasal Cannula 09/11/25 12:00 98.0 F 104 H 14 108/59 L 90 L Nasal Cannula 09/11/25 11:00 Nasal Cannula 09/11/25 10:06 101 H 09/11/25 10:06 98 H 09/11/25 10:06 90 L Nasal Cannula 09/11/25 09:00 Nasal Cannula 09/11/25 08:00 Nasal Cannula 09/11/25 08:00 97.4 F L 101 H 18 125/81 87 L Nasal Cannula 09/11/25 06:26 Nasal Cannula 09/11/25 06:24 90 09/11/25 06:24 91 H 09/11/25 06:24 96 Nasal Cannula 09/11/25 05:00 Nasal Cannula 09/11/25 04:00 99.1 F 100 H 14 120/60 88 L Nasal Cannula 09/11/25 03:00 Nasal Cannula 09/11/25 02:00 84 09/11/25 02:00 84 09/11/25 01:00 Nasal Cannula 09/11/25 00:00 98.2 F 64 14 127/71 89 L Nasal Cannula 09/10/25 23:00 Nasal Cannula 09/10/25 22:36 82 09/10/25 22:36 84 09/10/25 21:00 Nasal Cannula 09/10/25 20:00 Nasal Cannula 09/10/25 20:00 97.7 F 83 14 152/66 H 91 L Nasal Cannula 09/10/25 18:49 Nasal Cannula O2 Flow Rate 09/11/25 16:42 3 09/11/25 16:00 3 09/11/25 15:00 3 09/11/25 13:00 3 09/11/25 12:00 3 09/11/25 11:00 3 09/11/25 10:06 09/11/25 10:06 09/11/25 10:06 3 09/11/25 09:00 3 09/11/25 08:00 3 09/11/25 08:00 3 09/11/25 06:26 3 09/11/25 06:24 09/11/25 06:24 09/11/25 06:24 3 09/11/25 05:00 3 09/11/25 04:00 3 09/11/25 03:00 3 09/11/25 02:00 09/11/25 02:00 09/11/25 01:00 3 09/11/25 00:00 3 09/10/25 23:00 3 09/10/25 22:36 09/10/25 22:36 09/10/25 21:00 3 09/10/25 20:00 4 09/10/25 20:00 3 09/10/25 18:49 3 Intake and Output 09/11/25 09/11/25 09/11/25 07:59 15:59 23:59 Intake Total 530 / 1720 780 / 1720 410 / 1720 Output Total 1000 / 1000 0 / 1000 0 / 1000 Balance -470 / 720 780 / 720 410 / 720 Intake: Intake, Oral Amount 480 / 1320 480 / 1320 360 / 1320 Intake, Total IV Amount 50 / 400 300 / 400 50 / 400 Azithromycin 500 mg In 0.9 % 250 / 250 Sodium Chloride 250 ml @ 250 mls/hr IV 1100 [facility] Rx#:[id number] Pipercillin/Tazo 3.375 gm In 0. 50 / 150 50 / 150 50 / 150 9 % Sodium Chloride 50 ml @ 100 mls/hr IV Q6H [facility] Rx#:[id number] Output: Output, Urine Amount 1000 / 1000 0 / 1000 0 / 1000 Other: Number of Unmeasured Voids 1 1 Weight 79.197 kg Patient Weight 09/11/25 23:59 Weight 79.197 kg Laboratory Results - last 24 hr 09/10/25 20:03: POC Glucose 158 H 09/11/25 05:18: WBC 22.9 H*, RBC 4.51, Hgb 12.6, Hct 39.3, MCV 87.1, MCH 27.9, MCHC 32.1, RDW 13.7, Plt Count 286, MPV 11.7 H, Neut % (Auto) 58.0, Lymph % (Auto) 22.2, [place] % (Auto) 13.8 H, Eos % (Auto) 1.4, Baso % (Auto) 0.3, Neut # (Auto) 13.3 H, Lymph # (Auto) 5.1 H, [place] # (Auto) 3.2 H, Eos # (Auto) 0.3, Baso # (Auto) 0.1, Total Counted 100, Neutrophils % (Manual) 64, Lymphocytes % (Manual) 24, Monocytes % (Manual) 9, Eosinophils % (Manual) 3, Platelet Estimate Normal, RBC Morphology Normal, Sodium 133 L, Potassium 3.5, Chloride 92 L, Carbon Dioxide 32 H, Anion Gap 12.5, BUN 11 D, Creatinine 0.80, Estimated Creat Clear 98, Estimated GFR 74, Est GFR ( Amer) 90, Glucose 170 H, Calcium 8.8, Total Bilirubin 0.7, AST 47 H, ALT 39, Alkaline Phosphatase 141 H, C- Reactive Protein 227.6 H, Total Protein 6.9, Albumin 3.8, Globulin 3.1, Albumin/Globulin Ratio 1.2, Procalcitonin 0.136 09/11/25 06:10: POC Glucose 184 H 09/11/25 12:14: POC Glucose 157 H 09/11/25 16:28: POC Glucose 168 H I & O for Labs for Last 24 Hours: Intake & Output 09/08/25 09/09/25 09/10/25 09/11/25 23:59 23:59 23:59 23:59 Intake Total 1120 / 2320 1640 / 2120 2090 / 2570 1720 / 1720 Output Total 300 / 300 2100 / 2300 2300 / 3300 1000 / 1000 Balance 820 / 2020 -460 / -180 -210 / -730 720 / 720 Weight 88.649 kg 88.647 kg 83.189 kg 79.197 kg Microbiology Reports for the Last 24 Hours: Microbiology 09/09/25 09:24 Nose - Nasal MRSA Culture - Final Negative Constitutional: Present no acute distress, obese and chronically ill appearing Head: Present atraumatic and normocephalic ENT: Present normal exam Respiratory: Present normal respiratory effort; Absent rhonchi, wheezes or crackles Cardiac: Present Reg Rate and Rhythm GI: Present soft and normal bowel sounds; Absent distention Extremities: Present normal inspection, full ROM and edema (1+, improving) Skin: Present intact; Absent erythema Neuro: Present Grossly Intact, alert, awake, oriented x 3 and moves all extremities Assessment and Plan *Assessment and plan (1) Pneumonia: Status: Acute Qualifiers: Laterality: unspecified laterality Lung location: unspecified part of lung Pneumonia type: due to unspecified organism Qualified Code(s): J18.9 - Pneumonia, unspecified organism Category: Medical Code(s): J18.9 - Pneumonia, unspecified organism (2) Ingestion of foreign body: Status: Acute Qualifiers: Encounter type: initial encounter Qualified Code(s): T18.9XXA - Foreign body of alimentary tract, part unspecified, initial encounter Category: Medical Code(s): T18.9XXA - Foreign body of alimentary tract, part unspecified, initial encounter (3) Abdominal pain: Status: Acute Qualifiers: Abdominal location: right lower quadrant Qualified Code(s): R10.31 - Right lower quadrant pain Category: Medical Code(s): R10.9 - Unspecified abdominal pain (4) Acute exacerbation of CHF (congestive heart failure): Status: Acute Qualifiers: Heart failure type: unspecified Qualified Code(s): I50.9 - Heart failure, unspecified Category: Medical Code(s): I50.9 - Heart failure, unspecified (5) History of COPD: Status: Acute Category: Medical Code(s): Z87.09 - Personal history of other diseases of the respiratory system (6) Obesity (BMI 30.0-34.9): Status: Acute Category: Medical Code(s): E66.811 - Obesity, class 1 (7) Neuropathy: Status: Acute Category: Medical Code(s): G62.9 - Polyneuropathy, unspecified (8) Type 2 diabetes mellitus: Status: Acute Qualifiers: Diabetes mellitus complication detail: with polyneuropathy Diabetes mellitus complication status: with neurologic complications Diabetes mellitus keno terminal operator insulin use: with custodial use Qualified Code(s): E11.42 - Type 2 diabetes mellitus with diabetic polyneuropathy; Z79.4 - keno terminal operator (current) use of insulin Category: Medical Code(s): E11.9 - Type 2 diabetes mellitus without complications (9) Degenerative joint disease (DJD) of lumbar spine: Status: Chronic Qualifiers: Spinal osteoarthritis complication: with radiculopathy Qualified Code(s): M47.26 - Other spondylosis with radiculopathy, lumbar region Category: Medical Code(s): M47.816 - Spondylosis without myelopathy or radiculopathy, lumbar region (10) Depression: Status: Acute Category: Medical Code(s): F32.A - Depression, unspecified Plan Ms. Moctezuma is a 55-year-old female with COPD, obesity, neuropathy, depression who was just admitted for pneumonia. Completed her antibiotic course with Levaquin 750 mg daily. Presents with worsening swelling in her legs and shortness of breath. Workup in the ER concerning for persistent left lower lobe pneumonia and volume overload. Discussed case with ER, request admission for continued treatment of pneumonia and diuresis. I decided to admit for aggressive diuresis, pulmonology consult, optimization of care. Patient stabilized. Continue diuresis. Awaiting cultures to narrow antibiotics. Currently on IV antibiotics. Pulmonology assisting with care. Problems addressed as follows: #Community-acquired pneumonia COPD Chronic hypoxemic respiratory failure -CT of chest per my review showing left lower lobe consolidation. Persistent and somewhat worse; x-ray obtained today showing multifocal pneumonia. -Discussed case with pulmonology, recommend continuing with broad coverage. Continue Zosyn 3.375 g every 6 hours and azithromycin 500 mg daily. - Repeat chest x-ray today shows persistent multifocal pneumonia. -Goal sats greater 90%, continue to wean oxygen as tolerated. On 4 L at night. Requiring 3 during the day at this time -White count slightly better today at 22. Afebrile overnight. Repeat CBC, CMP, magnesium ordered for the morning -Kidney function remained stable BUN 11, creatinine 0.8. - Continue Singulair 10 mg nightly - Continue Trelegy 200 inhaler daily Foreign body Fatty liver - noted incidentally on abdomen CT and pelvis. Per my review, appears to have pendent or some type of piece of jewelry in her distal ileum near ileocecal junction. - Having bowel movements. No longer taking GoLytely. No abdominal pain. Consider repeat KUB in a week or sooner if patient develops any symptoms of obstruction or worsening pain. - Continue with serial exams and monitoring stool output. - Right upper quadrant ultrasound with fatty infiltration of the liver. No gallstones and gallbladder. No scarring of liver, patent portal vein Neuropathy: Continue Lyrica 150 mg times a day #HFpEF ? Frankly overloaded on presentation with 3+ edema. Diuresing well. Continue Lasix 80 mg IV twice daily. - BNP only 946 however given her oxygen requirement, volume overload in legs, concern for component of CHF exacerbation. Previous echo obtained on 09/02 with inability to estimate RVSP. LV hyperdynamic. - Will plan to discharge on dose of diuretic when appropriate for discharge home. #Anxiety/depression: # Insomnia: - continue home BuSpar 15 mg twice daily, Cymbalta 60 mg, Paxil 10 mg nightly. Will hold Valium. Continue Ambien 10 mg nightly. Monitor for toxicity and oversedation #GERD: Continue PPI. Diabetes confirmed. Holding metformin. A1c 6.6. Morning glucose 161. Co ntinue fingersticks ACHS with sliding scale insulin Full code DVT prophylaxis: Lovenox 40 mg Cardiac diet
[2025-09-11 20:03] LABS: POC Glucose,Bedside 195 gm/dL (70-110)
[2025-09-11] MEDS: PRAVASTATIN 40MG TAB 40 MG PO (20:58)
[2025-09-11] MEDS: MONTELUKAST SODIUM 10MG TAB 10 MG PO (20:58)
[2025-09-11] MEDS: ZOLPIDEM TARTRATE 10 MG TABLET PO (20:58)
[2025-09-11] MEDS: PANTOPRAZOLE 40MG TABLET 40 MG PO (20:58)
[2025-09-11] MEDS: PARoxetine 10MG TABLET 10 MG PO (20:59)
[2025-09-11] MEDS: NICOTINE 21MG/24HR PATCH 21 MG TD (20:59)
[2025-09-12] VITALS (9 sets, daily range): BP systolic 90–140; BP diastolic 50–84; PULSE 58–110; RESP 16–20; TEMP 36.4–36.9; O2SAT 3–98; BMI 31.8
--- NOTE | 2025-09-12 01:45 | PC.NURSE ---
Pt AOx3 with episodes of confusion. Pt has tried multiple times to get out of bed even though she is unsteady. Pt has been educated on the use of the call light multiple times. Bed alarm is on and functioning and pt room is by nurse's station. She is currently resting in bed with eyes open. Denies pain or any additional needs at this time. Bed is low, locked, and call light is in reach.
[2025-09-12] MEDS: PIPERCILLIN/TAZO 3.375 GM in 0.9 % SODIUM CHLORIDE 50 ML IV ×4 (02:04→20:21)
[2025-09-12 05:30] LABS: POC Glucose,Bedside 208 gm/dL (70-110)
[2025-09-12] MEDS: humaLOG 100 UNITS/ML 10ML VIAL (SSI) SUBCUT ×4 (06:05→20:22)
[2025-09-12] MEDS: BUDESONIDE 0.5MG/2ML NEB 0.5 MG IH ×2 (06:30→18:02)
[2025-09-12] MEDS: IPRATROPIUM/ALBUTEROL 3 ML NEB IH ×5 (06:30→23:04)
--- NOTE | 2025-09-12 07:40 | XR_ITS ---
PROCEDURE INFORMATION: Exam: XR Abdomen Exam date and time: 09/12/2025 7:50 AM Age: 55 years old Clinical indication: Other: Eval foreign body; Additional info: Eval foreign body in ileum TECHNIQUE: Imaging protocol: Radiologic exam of the abdomen. Views: Frontal supine view of the abdomen. 1 View. COMPARISON: CR XR KUB 09/10/2025 8:32 AM FINDINGS: Lungs: Patchy opacities in the right lung likely represent atelectasis or infection. Gastrointestinal tract: A radiopaque foreign body measuring 1.5 cm projects over the distal ileum. This position is stable since the prior study. No evidence of intestinal obstruction. Bones/joints: Unremarkable. Soft tissues: Unremarkable. IMPRESSION: 1. Radiopaque foreign body measuring 1.5 cm projects over the distal ileum. This position is stable since the prior study. No evidence of intestinal obstruction. 2. Patchy opacities in the right lung likely represent atelectasis or infection.
[2025-09-12 07:59] LABS: Albumin Level 3.9 g/dl (3.5-5.0); Chloride 89 mmol/L (98-107); Hematocrit 39.7 % (37.0-47.0); Hemoglobin 12.4 g/dL (12.2-16.2); Immature Granulocytes % 5.1 %; Mean Corpuscular HGB Conc 31.2 g/dL (31.8-35.4); Mean Corpuscular Hemoglobin 27.6 pg (27.0-31.2); Mean Corpuscular Volume 88.2 fl (81-99); Nucleated Red Blood Cells % 0 %; Platelet Count 213 K/mm3 (142-424); Potassium 3.6 mmoL/L (3.5-5.1); Red Blood Count 4.50 M/mm3 (4.20-5.40); Red Cell Distribution Width-SD 43.1 fL; Sodium 130 mmol/L (136-145); White Blood Count 24.0 K/mm3 (4.8-10.8)
[2025-09-12 08:02] LABS: Alanine Aminotransferase 34 U/L (12-78); Albumin/Globulin Ratio 1.3 (1.1-1.8); Alkaline Phosphatase 138 U/L (38-126); Anion Gap 14.6 mEq/L (5-15); Aspartate Amino Transferase 58 U/L (14-36); Bilirubin,Total 0.9 mg/dl (0.2-1.3); Blood Urea Nitrogen 12 mg/dl (7-17); Calcium 8.8 mg/dl (8.4-10.2); Carbon Dioxide 30 mmol/L (22.0-30.0); Creatinine Clearance Estimated 95 mL/min (50-200); Creatinine,Serum 0.80 mg/dl (0.52-1.04); Estimated Glomerular Filt Rate 74 ml/min (>60); GFR (African American) 90 ML/MIN (>60); Globulin 3.1 g/dL (1.3-3.2); Glucose 219 mg/dl (74-100); Total Protein,Serum 7.0 g/dl (6.3-8.2)
[2025-09-12] MEDS: PREGABALIN 50MG CAPSULE 150 MG PO (08:11)
[2025-09-12] MEDS: ASPIRIN EC 81MG TABLET 81 MG PO (08:11)
[2025-09-12] MEDS: BUSPIRONE HCL 10 MG TABLET 15 MG PO ×2 (08:12→20:21)
[2025-09-12] MEDS: FUROSEMIDE 100MG/10ML VIAL 80 MG IV (08:14)
[2025-09-12] MEDS: FLUTICASONE PROP 50MCG NASAL SPRAY 16GM 1 SPRAY NS (08:15)
[2025-09-12] MEDS: HEPARIN SODIUM 5,000 UNIT/ML VIAL 5000 UNIT SUBCUT ×3 (08:16→20:21)
[2025-09-12 08:52] LABS: Total Cells Counted 100
[2025-09-12 09:24] LABS: RBC Morphology Normal
--- NOTE | 2025-09-12 11:00 | EXP.ACUTE.PN ---
Subjective *Date: 09/12/25 *Time: 16:07 Interval history: Patient appears little bit more confused this morning. Was not wearing her oxygen initially on exam. O2 sats were low 80s. Improved to low 90s when oxygen was replaced. Administered breathing treatment during morning rounds. Received Ambien last night due to difficulty sleeping. Was restless throughout the night. Concern for some oversedation from medications. Will hold her Lyrica today Medical Exam Vital signs and Labs for Last 24 Hours: Vital Signs Temp Pulse Pulse Resp BP Pulse Ox O2 Del Method 09/12/25 08:00 98.2 F 96 H 16 113/63 91 L Nasal Cannula 09/12/25 06:37 Nasal Cannula 09/12/25 06:31 93 H 09/12/25 06:31 93 H 09/12/25 06:31 92 L Nasal Cannula 09/12/25 05:00 Nasal Cannula 09/12/25 04:00 97.8 F 58 L 18 140/84 92 L Nasal Cannula 09/12/25 03:00 Nasal Cannula 09/12/25 01:00 Nasal Cannula 09/12/25 00:00 97.9 F 110 H 18 90/50 L 3 L Nasal Cannula 09/11/25 23:13 104 H 09/11/25 23:13 107 H 09/11/25 23:00 Nasal Cannula 09/11/25 21:00 Nasal Cannula 09/11/25 20:00 Nasal Cannula 09/11/25 19:53 98.4 F 108 H 18 127/81 92 L Nasal Cannula 09/11/25 18:39 97 H 09/11/25 18:39 98 H 09/11/25 18:39 92 L Nasal Cannula 09/11/25 18:33 Nasal Cannula 09/11/25 16:42 Nasal Cannula 09/11/25 16:00 98.9 F 106 H 16 113/79 86 L Nasal Cannula 09/11/25 15:00 Nasal Cannula 09/11/25 13:00 Nasal Cannula 09/11/25 12:00 98.0 F 104 H 14 108/59 L 90 L Nasal Cannula O2 Flow Rate 09/12/25 08:00 3.5 09/12/25 06:37 3 09/12/25 06:31 09/12/25 06:31 09/12/25 06:31 3 09/12/25 05:00 3 09/12/25 04:00 3 09/12/25 03:00 3 09/12/25 01:00 4 09/12/25 00:00 92 09/11/25 23:13 09/11/25 23:13 09/11/25 23:00 4 09/11/25 21:00 4 09/11/25 20:00 4 09/11/25 19:53 3 09/11/25 18:39 09/11/25 18:39 09/11/25 18:39 4 09/11/25 18:33 3 09/11/25 16:42 3 09/11/25 16:00 3 09/11/25 15:00 3 09/11/25 13:00 3 09/11/25 12:00 3 Intake and Output 09/11/25 09/12/25 09/12/25 23:59 07:59 15:59 Intake Total 460 / 1770 50 / 220 170 / 220 Output Total 0 / 1000 0 / 0 0 / 0 Balance 460 / 770 50 / 220 170 / 220 Intake: Intake, Oral Amount 360 / 1320 120 / 120 Intake, Total IV Amount 100 / 450 50 / 100 50 / 100 Pipercillin/Tazo 3.375 gm In 0. 100 / 200 50 / 100 50 / 100 9 % Sodium Chloride 50 ml @ 100 mls/hr IV Q6H [facility] Rx#:[id number] Output: Output, Urine Amount 0 / 1000 0 / 0 0 / 0 Other: Number of Unmeasured Voids 1 4 1 Weight 76.521 kg Patient Weight 09/12/25 23:59 Weight 76.521 kg Laboratory Results - last 24 hr 09/11/25 05:18: C-Reactive Protein 227.6 H, Procalcitonin 0.136 09/11/25 12:14: POC Glucose 157 H 09/11/25 16:28: POC Glucose 168 H 09/11/25 19:52: POC Glucose 195 H 09/12/25 05:07: POC Glucose 208 H 09/12/25 07:42: WBC 24.0 H*, RBC 4.50, Hgb 12.4, Hct 39.7, MCV 88.2, MCH 27.6, MCHC 31.2 L, RDW 13.5, Plt Count 213 D, MPV 11.6 H, Neut % (Auto) 65.0, Lymph % (Auto) 16.6, [place] % (Auto) 10.1 H, Eos % (Auto) 2.0, Baso % (Auto) 1.2, Neut # (Auto) 15.6 H, Lymph # (Auto) 4.0, [place] # (Auto) 2.4 H, Eos # (Auto) 0.5 H, Baso # (Auto) 0.3 H, Total Counted 100, Neutrophils % (Manual) 65, Band Neutrophils % 1.0, Lymphocytes % (Manual) 26, Monocytes % (Manual) 2, Eosinophils % (Manual) 1, Metamyelocytes % 3.0 H, Myelocytes % 2 H, Platelet Estimate Normal, RBC Morphology Normal, Sodium 130 L, Potassium 3.6, Chloride 89 L, Carbon Dioxide 30, Anion Gap 14.6, BUN 12, Creatinine 0.80, Estimated Creat Clear 95, Estimated GFR 74, Est GFR ( Amer) 90, Glucose 219 H, Calcium 8.8, Total Bilirubin 0.9, AST 58 H, ALT 34, Alkaline Phosphatase 138 H, Total Protein 7.0, Albumin 3.9, Globulin 3.1, Albumin/Globulin Ratio 1.3 I & O for Labs for Last 24 Hours: Intake & Output 09/09/25 09/10/25 09/11/25 09/12/25 23:59 23:59 23:59 23:59 Intake Total 1640 / 2120 2090 / 2570 1770 / 1770 220 / 220 Output Total 2100 / 2300 2300 / 3300 1000 / 1000 0 / 0 Balance -460 / -180 -210 / -730 770 / 770 220 / 220 Weight 88.647 kg 83.189 kg 79.197 kg 76.521 kg Microbiology Reports for the Last 24 Hours: Microbiology 09/09/25 09:24 Nose - Nasal MRSA Culture - Final Negative Constitutional: Present no acute distress, obese and chronically ill appearing Comment:: Answers questions appropriately however appears more sedated this morning. Fumbling with her phone and ended up walking her home screen due to inability to enter password. Head: Present atraumatic and normocephalic ENT: Present normal exam Respiratory: Present crackles (Diffuse bilaterally) and normal respiratory effort; Absent rhonchi or wheezes Cardiac: Present Reg Rate and Rhythm GI: Present soft and normal bowel sounds; Absent distention Extremities: Present normal inspection, full ROM and edema (resolved) Skin: Present intact and ecchymosis (On bilateral arms, present throughout admission); Absent erythema Neuro: Present Grossly Intact, alert, awake and moves all extremities Comment:: Oriented to self and place. More confused than yesterday Assessment and Plan *Assessment and plan (1) Pneumonia: Status: Acute Qualifiers: Laterality: unspecified laterality Lung location: unspecified part of lung Pneumonia type: due to unspecified organism Qualified Code(s): J18.9 - Pneumonia, unspecified organism Category: Medical Code(s): J18.9 - Pneumonia, unspecified organism (2) Ingestion of foreign body: Status: Acute Qualifiers: Encounter type: initial encounter Qualified Code(s): T18.9XXA - Foreign body of alimentary tract, part unspecified, initial encounter Category: Medical Code(s): T18.9XXA - Foreign body of alimentary tract, part unspecified, initial encounter (3) Abdominal pain: Status: Acute Qualifiers: Abdominal location: right lower quadrant Qualified Code(s): R10.31 - Right lower quadrant pain Category: Medical Code(s): R10.9 - Unspecified abdominal pain (4) Acute exacerbation of CHF (congestive heart failure): Status: Acute Qualifiers: Heart failure type: unspecified Qualified Code(s): I50.9 - Heart failure, unspecified Category: Medical Code(s): I50.9 - Heart failure, unspecified (5) History of COPD: Status: Acute Category: Medical Code(s): Z87.09 - Personal history of other diseases of the respiratory system (6) Obesity (BMI 30.0-34.9): Status: Acute Category: Medical Code(s): E66.811 - Obesity, class 1 (7) Neuropathy: Status: Acute Category: Medical Code(s): G62.9 - Polyneuropathy, unspecified (8) Type 2 diabetes mellitus: Status: Acute Qualifiers: Diabetes mellitus superintendent marine oil terminal insulin use: with superintendent marine oil terminal use Diabetes mellitus complication status: with neurologic complications Diabetes mellitus complication detail: with polyneuropathy Qualified Code(s): E11.42 - Type 2 diabetes mellitus with diabetic polyneuropathy; Z79.4 - [facility] (current) use of insulin Category: Medical Code(s): E11.9 - Type 2 diabetes mellitus without complications (9) Degenerative joint disease (DJD) of lumbar spine: Status: Chronic Qualifiers: Spinal osteoarthritis complication: with radiculopathy Qualified Code(s): M47.26 - Other spondylosis with radiculopathy, lumbar region Category: Medical Code(s): M47.816 - Spondylosis without myelopathy or radiculopathy, lumbar region (10) Depression: Status: Acute Category: Medical Code(s): F32.A - Depression, unspecified Plan Ms. Moctezuma is a 55-year-old female with COPD, obesity, neuropathy, depression who was just admitted for pneumonia. Completed her antibiotic course with Levaquin 750 mg daily. Presents with worsening swelling in her legs and shortness of breath. Workup in the ER concerning for persistent left lower lobe pneumonia and volume overload. Discussed case with ER, request admission for continued treatment of pneumonia and diuresis. I decided to admit for aggressive diuresis, pulmonology consult, optimization of care. Patient stabilized. Appears euvolemic today. Decreasing diuretic to once daily. Continues to have significant oxygen requirement at 3 to 4 L from her pneumonia. Has not passed foreign body yet. Continue IV antibiotics. Problems addressed as follows: Community-acquired pneumonia COPD Chronic hypoxemic respiratory failure - continuing with broad coverage. Continue Zosyn 3.375 g every 6 hours and azithromycin 500 mg daily. -Goal sats greater 90%, continue to wean oxygen as tolerated. On 4 L at night. Requiring 3 during the day at this time - White count remains elevated at 24. Afebrile. Repeat CBC, CMP, magnesium ordered for the morning - White cell differential with 65% neutrophils, 10% monofilaments. Kidney function stable with BUN 12, creatinine 0.8. Potassium 3.6 - Continue Singulair 10 mg nightly - Continue Trelegy 200 inhaler daily - DuoNeb every 6 hours scheduled Foreign body Fatty liver - noted incidentally on abdomen CT and pelvis. Per my review, appears to have pendent or some type of piece of jewelry in her distal ileum near ileocecal junction. - Having bowel movements. No longer taking GoLytely. No abdominal pain. Repeat KUB obtained today showing persistent foreign body in right lower quadrant - Continue with serial exams and monitoring stool output. - Right upper quadrant ultrasound with fatty infiltration of the liver. No gallstones and gallbladder. No scarring of liver, patent portal vein Neuropathy: Continue Lyrica 150 mg times a day #HFpEF ? Frankly overloaded on presentation with 3+ edema. Diuresing well. - Edema more or less resolved. Decrease Lasix to 80 mg IV once daily. - BNP only 946 however given her oxygen requirement, volume overload in legs, concern for component of CHF exacerbation. Previous echo obtained on 09/02 with inability to estimate RVSP. LV hyperdynamic. - Will plan to discharge on dose of diuretic when appropriate for discharge home. #Anxiety/depression: # Insomnia: - continue home BuSpar 15 mg twice daily, Cymbalta 60 mg, Paxil 10 mg nightly. - Holding Valium, discontinued Ambien. Holding Lyrica today due to sedation. Continue to monitor for toxicity and oversedation #GERD: Continue PPI. Diabetes confirmed. Holding metformin. A1c 6.6. Continue fingersticks ACHS with sliding scale insulin Full code DVT prophylaxis: Lovenox 40 mg Cardiac diet
[2025-09-12] MEDS: ONDANSETRON 4MG/2ML VIAL 4 MG IV ×2 (12:00→23:27)
[2025-09-12] MEDS: AZITHROMYCIN 500 MG in 0.9 % SODIUM CHLORIDE 250 ML 250 MG IV (12:02)
[2025-09-12 16:31] LABS: POC Glucose,Bedside 182 gm/dL (70-110)
[2025-09-12 16:31] LABS: POC Glucose,Bedside 210 gm/dL (70-110)
--- NOTE | 2025-09-12 16:52 | PC.NURSE ---
O2 SUPPORT INCREASED TO 4LNC R/T DECREASE IN O2 SATS. CURRENTLY UP TO CHAIR AND TOLERATING WELL. AOX4 BUT CONFUSED AT TIMES DURING THIS SHIFT.
[2025-09-12 20:19] LABS: POC Glucose,Bedside 164 gm/dL (70-110)
[2025-09-12] MEDS: MONTELUKAST SODIUM 10MG TAB 10 MG PO (20:22)
[2025-09-12] MEDS: PRAVASTATIN 40MG TAB 40 MG PO (20:22)
[2025-09-12] MEDS: PARoxetine 10MG TABLET 10 MG PO (20:22)
[2025-09-12] MEDS: PANTOPRAZOLE 40MG TABLET 40 MG PO (20:22)
[2025-09-12] MEDS: NICOTINE 21MG/24HR PATCH 21 MG TD (20:23)
[2025-09-13] VITALS (12 sets, daily range): BP systolic 118–134; BP diastolic 52–79; PULSE 81–101; RESP 16–20; TEMP 36.4–36.8; O2SAT 92–96; BMI 32.4
[2025-09-13] MEDS: PIPERCILLIN/TAZO 3.375 GM in 0.9 % SODIUM CHLORIDE 50 ML IV ×4 (02:35→20:00)
[2025-09-13] MEDS: ACETAMINOPHEN 325MG TAB 650 MG PO (02:45)
--- NOTE | 2025-09-13 03:47 | PC.NURSE ---
patient has been restless throughout the night, complained of back pain, medicated per mar for pain. tolerating 4L of O2 with sats remaining >90%. ambulates in room with standby assistance. alert and oriented x4. call button in reach, bed alarm on and functioning.
[2025-09-13] MEDS: IPRATROPIUM/ALBUTEROL 3 ML NEB IH ×4 (06:19→23:46)
[2025-09-13] MEDS: BUDESONIDE 0.5MG/2ML NEB 0.5 MG IH ×2 (06:19→18:11)
[2025-09-13 06:29] LABS: POC Glucose,Bedside 257 gm/dL (70-110)
[2025-09-13] MEDS: humaLOG 100 UNITS/ML 10ML VIAL (SSI) SUBCUT ×3 (06:30→16:06)
[2025-09-13 06:32] LABS: Hematocrit 34.2 % (37.0-47.0); Hemoglobin 11.2 g/dL (12.2-16.2); Immature Granulocytes % 5.3 %; Mean Corpuscular HGB Conc 32.7 g/dL (31.8-35.4); Mean Corpuscular Hemoglobin 28.2 pg (27.0-31.2); Mean Corpuscular Volume 86.1 fl (81-99); Nucleated Red Blood Cells % 0 %; Platelet Count 246 K/mm3 (142-424); Red Blood Count 3.97 M/mm3 (4.20-5.40); Red Cell Distribution Width-SD 41.3 fL; White Blood Count 17.7 K/mm3 (4.8-10.8)
[2025-09-13 06:34] LABS: Chloride 91 mmol/L (98-107)
[2025-09-13 06:35] LABS: Albumin Level 3.3 g/dl (3.5-5.0); Potassium 3.1 mmoL/L (3.5-5.1); Sodium 132 mmol/L (136-145)
[2025-09-13 06:38] LABS: Alanine Aminotransferase 26 U/L (12-78); Albumin/Globulin Ratio 1.1 (1.1-1.8); Alkaline Phosphatase 124 U/L (38-126); Anion Gap 11.1 mEq/L (5-15); Aspartate Amino Transferase 23 U/L (14-36); Bilirubin,Total 0.8 mg/dl (0.2-1.3); Blood Urea Nitrogen 12 mg/dl (7-17); Calcium 8.5 mg/dl (8.4-10.2); Carbon Dioxide 33 mmol/L (22.0-30.0); Creatinine Clearance Estimated 97 mL/min (50-200); Creatinine,Serum 0.80 mg/dl (0.52-1.04); Estimated Glomerular Filt Rate 74 ml/min (>60); GFR (African American) 90 ML/MIN (>60); Globulin 2.9 g/dL (1.3-3.2); Glucose 249 mg/dl (74-100); Magnesium 1.8 mg/dl (1.6-2.3); Total Protein,Serum 6.2 g/dl (6.3-8.2)
[2025-09-13 07:10] LABS: Total Cells Counted 100
[2025-09-13 07:11] LABS: RBC Morphology Normal
[2025-09-13] MEDS: POTASSIUM CHLORIDE 20MEQ TAB 40 MEQ PO ×2 (08:33→12:12)
[2025-09-13] MEDS: ASPIRIN EC 81MG TABLET 81 MG PO (08:35)
[2025-09-13] MEDS: BUSPIRONE HCL 10 MG TABLET 15 MG PO ×2 (08:35→20:00)
[2025-09-13] MEDS: PREGABALIN 50MG CAPSULE 50 MG PO ×2 (08:35→12:13)
[2025-09-13] MEDS: FLUTICASONE PROP 50MCG NASAL SPRAY 16GM 1 SPRAY NS (08:36)
[2025-09-13] MEDS: HEPARIN SODIUM 5,000 UNIT/ML VIAL 5000 UNIT SUBCUT ×3 (08:37→20:00)
[2025-09-13] MEDS: FUROSEMIDE 100MG/10ML VIAL 80 MG IV (08:37)
[2025-09-13] MEDS: ONDANSETRON 4MG ODT 4 MG SL (11:07)
[2025-09-13 12:27] LABS: POC Glucose,Bedside 291 gm/dL (70-110)
--- NOTE | 2025-09-13 15:22 | EXP.ACUTE.PN ---
Subjective *Date: 09/13/25 *Time: 23:21 Interval history: Patient looks better this morning. More interactive. Less sedated. Concern for oversedation with her Lyrica and Ambien is causing some of her somnolence and putting her at risk at home. Discussed risks for oversedation. Patient tolerating p.o. intake. States she does not feel comfortable going home. Says she is scared to be alone. States she is worried about her pneumonia. Today is day 5 of antibiotics. Offered reassurance. Reassured her about outpatient therapy. Afebrile. Stable on 3 L oxygen Medical Exam Vital signs and Labs for Last 24 Hours: Vital Signs Temp Pulse Pulse Resp BP Pulse Ox O2 Del Method 09/13/25 13:06 83 09/13/25 13:06 81 09/13/25 13:06 94 L Nasal Cannula 09/13/25 13:00 Nasal Cannula 09/13/25 12:00 97.6 F 99 H 18 127/79 93 L Nasal Cannula 09/13/25 11:00 Nasal Cannula 09/13/25 09:00 Nasal Cannula 09/13/25 08:00 Nasal Cannula 09/13/25 08:00 97.8 F 90 16 118/65 93 L Nasal Cannula 09/13/25 06:40 Nasal Cannula 09/13/25 06:20 82 09/13/25 06:20 86 09/13/25 06:20 96 Nasal Cannula 09/13/25 05:00 Nasal Cannula 09/13/25 04:00 98.0 F 85 18 121/56 L 95 Nasal Cannula 09/13/25 03:00 Nasal Cannula 09/13/25 01:00 Nasal Cannula 09/13/25 00:43 101 H 09/13/25 00:42 101 H 09/13/25 00:00 98.2 F 93 H 20 120/60 96 BiPAP 09/12/25 23:00 Nasal Cannula 09/12/25 21:00 Nasal Cannula 09/12/25 20:00 Nasal Cannula 09/12/25 20:00 98.2 F 93 H 20 120/60 96 Nasal Cannula 09/12/25 18:45 Nasal Cannula 09/12/25 18:44 100 H 09/12/25 18:44 103 H 09/12/25 18:28 Nasal Cannula 09/12/25 17:00 Nasal Cannula 09/12/25 16:00 97.6 F 93 H 16 93/51 L 98 Nasal Cannula O2 Flow Rate 09/13/25 13:06 09/13/25 13:06 09/13/25 13:06 3 09/13/25 13:00 3 09/13/25 12:00 3 09/13/25 11:00 3 09/13/25 09:00 3 09/13/25 08:00 3 09/13/25 08:00 3 09/13/25 06:40 4 09/13/25 06:20 09/13/25 06:20 09/13/25 06:20 3 09/13/25 05:00 4 09/13/25 04:00 4 09/13/25 03:00 4 09/13/25 01:00 4 09/13/25 00:43 09/13/25 00:42 09/13/25 00:00 4 09/12/25 23:00 4 09/12/25 21:00 4 09/12/25 20:00 4 09/12/25 20:00 4 09/12/25 18:45 4 09/12/25 18:44 09/12/25 18:44 09/12/25 18:28 4 09/12/25 17:00 4 09/12/25 16:00 Intake and Output 09/12/25 09/13/25 09/13/25 23:59 07:59 15:59 Intake Total 330 / 1210 290 / 950 660 / 950 Output Total 0 / 0 0 / 0 0 / 0 Balance 330 / 1210 290 / 950 660 / 950 Intake: Intake, Oral Amount 280 / 760 240 / 800 560 / 800 Intake, Total IV Amount 50 / 450 50 / 150 100 / 150 Pipercillin/Tazo 3.375 gm In 0. 50 / 200 50 / 150 100 / 150 9 % Sodium Chloride 50 ml @ 100 mls/hr IV Q6H FOR[facility]LY [facility], 1928–1983 Rx#:[id number] Output: Output, Urine Amount 0 / 0 0 / 0 0 / 0 Other: Number of Unmeasured Voids 2 1 1 Number of Urine Attends/Diapers 1 Weight 78.018 kg Patient Weight 09/13/25 23:59 Weight 78.018 kg Laboratory Results - last 24 hr 09/12/25 12:03: POC Glucose 210 H 09/12/25 16:12: POC Glucose 182 H 09/12/25 20:11: POC Glucose 164 H 09/13/25 06:08: WBC 17.7 H D, RBC 3.97 L, Hgb 11.2 L, Hct 34.2 L, MCV 86.1, MCH 28.2, MCHC 32.7, RDW 13.5, Plt Count 246, MPV 11.7 H, Neut % (Auto) 61.5, Lymph % (Auto) 20.0, [place] % (Auto) 9.8 H, Eos % (Auto) 2.5, Baso % (Auto) 0.9, Neut # (Auto) 10.9 H, Lymph # (Auto) 3.5, [place] # (Auto) 1.7 H, Eos # (Auto) 0.4, Baso # (Auto) 0.2, Total Counted 100, Neutrophils % (Manual) 65, Lymphocytes % (Manual) 25, Monocytes % (Manual) 7, Eosinophils % (Manual) 3, Platelet Estimate Normal, RBC Morphology Normal, Sodium 132 L, Potassium 3.1 L, Chloride 91 L, Carbon Dioxide 33 H, Anion Gap 11.1, BUN 12, Creatinine 0.80, Estimated Creat Clear 97, Estimated GFR 74, Est GFR ( Amer) 90, Glucose 249 H, Calcium 8.5, Magnesium 1.8, Total Bilirubin 0.8, AST 23 D, ALT 26, Alkaline Phosphatase 124, Total Protein 6.2 L, Albumin 3.3 L D, Globulin 2.9, Albumin/Globulin Ratio 1.1 09/13/25 06:22: POC Glucose 257 H 09/13/25 12:16: POC Glucose 291 H I & O for Labs for Last 24 Hours: Intake & Output 09/10/25 09/11/25 09/12/25 09/13/25 23:59 23:59 23:59 23:59 Intake Total 2090 / 2570 1770 / 1770 970 / 1210 950 / 950 Output Total 2300 / 3300 1000 / 1000 0 / 0 0 / 0 Balance -210 / -730 770 / 770 970 / 1210 950 / 950 Weight 83.189 kg 79.197 kg 76.521 kg 78.018 kg Microbiology Reports for the Last 24 Hours: Microbiology 09/08/25 12:36 Blood Blood Culture - Final NO GROWTH AFTER 5 DAYS 09/08/25 12:33 Blood Blood Culture - Final NO GROWTH AFTER 5 DAYS Constitutional: Present no acute distress, obese, chronically ill appearing and cooperative Head: Present atraumatic and normocephalic ENT: Present normal exam Respiratory: Present normal respiratory effort; Absent rhonchi, wheezes or crackles (Improved) Cardiac: Present Reg Rate and Rhythm GI: Present soft and normal bowel sounds; Absent distention Extremities: Present normal inspection, full ROM and edema (resolved) Skin: Present intact and ecchymosis (On bilateral arms, present throughout admission); Absent erythema Neuro: Present Grossly Intact, alert, awake, oriented x 3 and moves all extremities Assessment and Plan *Assessment and plan (1) Pneumonia: Status: Acute Qualifiers: Laterality: unspecified laterality Lung location: unspecified part of lung Pneumonia type: due to unspecified organism Qualified Code(s): J18.9 - Pneumonia, unspecified organism Category: Medical Code(s): J18.9 - Pneumonia, unspecified organism (2) Ingestion of foreign body: Status: Acute Qualifiers: Encounter type: initial encounter Qualified Code(s): T18.9XXA - Foreign body of alimentary tract, part unspecified, initial encounter Category: Medical Code(s): T18.9XXA - Foreign body of alimentary tract, part unspecified, initial encounter (3) Abdominal pain: Status: Acute Qualifiers: Abdominal location: right lower quadrant Qualified Code(s): R10.31 - Right lower quadrant pain Category: Medical Code(s): R10.9 - Unspecified abdominal pain (4) Acute exacerbation of CHF (congestive heart failure): Status: Acute Qualifiers: Heart failure type: unspecified Qualified Code(s): I50.9 - Heart failure, unspecified Category: Medical Code(s): I50.9 - Heart failure, unspecified (5) History of COPD: Status: Acute Category: Medical Code(s): Z87.09 - Personal history of other diseases of the respiratory system (6) Obesity (BMI 30.0-34.9): Status: Acute Category: Medical Code(s): E66.811 - Obesity, class 1 (7) Neuropathy: Status: Acute Category: Medical Code(s): G62.9 - Polyneuropathy, unspecified (8) Type 2 diabetes mellitus: Status: Acute Qualifiers: Diabetes mellitus mercerizing range controller insulin use: with jail use Diabetes mellitus complication status: with neurologic complications Diabetes mellitus complication detail: with polyneuropathy Qualified Code(s): E11.42 - Type 2 diabetes mellitus with diabetic polyneuropathy; 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 Moctezuma is a 55-year-old female with COPD, obesity, neuropathy, depression who was just admitted for pneumonia. Completed her antibiotic course with Levaquin 750 mg daily. Presents with worsening swelling in her legs and shortness of breath. Workup in the ER concerning for persistent left lower lobe pneumonia and volume overload. Discussed case with ER, request admission for continued treatment of pneumonia and diuresis. I decided to admit for aggressive diuresis, pulmonology consult, optimization of care. Patient stabilized. Appears euvolemic today. More alert and oriented today. Scared to go home. Completing IV antibiotics over the next 24 hours. Counseled she will be stable at discharge in the morning. Still has not passed foreign body. No nausea or vomiting. Problems addressed as follows: Community-acquired pneumonia COPD Chronic hypoxemic respiratory failure - continuing with broad coverage. Continue Zosyn 3.375 g every 6 hours. Has completed azithromycin course. Today makes day 5 of Zosyn. Will complete 7 days total of antibiotics. Transition in the morning to Levaquin for discharge. - Goal sats greater 90%, continue to wean oxygen as tolerated. On 4 L at night. Requiring 3 during the day at this time - White count improved to 17. Afebrile. Repeat CBC, CMP, magnesium ordered for the morning - Kidney function stable with BUN 12, creatinine 0.8. Potassium 3.1, replacing per protocol - Continue Singulair 10 mg nightly - Continue Trelegy 200 inhaler daily - DuoNeb every 6 hours scheduled Foreign body Fatty liver - noted incidentally on abdomen CT and pelvis. Per my review, appears to have pendent or some type of piece of jewelry in her distal ileum near ileocecal junction. - Having bowel movements. No longer taking GoLytely. No abdominal pain. Repeat KUB obtained today showing persistent foreign body in right lower quadrant - Continue with serial exams and monitoring stool output. - Right upper quadrant ultrasound with fatty infiltration of the liver. No gallstones and gallbladder. No scarring of liver, patent portal vein Neuropathy: Continue Lyrica decreased to 50 mg 3 times a day this morning. Gradually increase to 100 mg for the evening. #HFpEF ? Frankly overloaded on presentation with 3+ edema. Diuresing well. - Edema more or less resolved. Decrease Lasix to 80 mg IV once daily. - BNP only 946 however given her oxygen requirement, volume overload in legs, concern for component of CHF exacerbation. Previous echo obtained on 09/02 with inability to estimate RVSP. LV hyperdynamic. - Will plan to discharge on dose of diuretic when appropriate for discharge home. #Anxiety/depression: # Insomnia: - continue home BuSpar 15 mg twice daily, Cymbalta 60 mg, Paxil 10 mg nightly. - Holding Valium, discontinued Ambien. Continue to monitor for toxicity and oversedation #GERD: Continue PPI. Diabetes confirmed. Holding metformin. A1c 6.6. Continue fingersticks ACHS with sliding scale insulin Full code DVT prophylaxis: Lovenox 40 mg Cardiac diet
[2025-09-13 16:15] LABS: POC Glucose,Bedside 220 gm/dL (70-110)
[2025-09-13] MEDS: PRAVASTATIN 40MG TAB 40 MG PO (20:00)
[2025-09-13] MEDS: NICOTINE 21MG/24HR PATCH 21 MG TD (20:00)
[2025-09-13] MEDS: PANTOPRAZOLE 40MG TABLET 40 MG PO (20:00)
[2025-09-13] MEDS: MONTELUKAST SODIUM 10MG TAB 10 MG PO (20:00)
[2025-09-13] MEDS: PARoxetine 10MG TABLET 10 MG PO (20:00)
[2025-09-13] MEDS: PREGABALIN 100MG CAPSULE 100 MG PO (20:00)
[2025-09-13 21:13] LABS: POC Glucose,Bedside 114 gm/dL (70-110)
[2025-09-14] VITALS: BP 98/71; PULSE 101; RESP 18; TEMP 36.3; O2SAT 92
[2025-09-14] MEDS: PIPERCILLIN/TAZO 3.375 GM in 0.9 % SODIUM CHLORIDE 50 ML IV ×2 (02:18→08:25)
[2025-09-14 04:00] VITALS: BP 103/49; PULSE 96; RESP 16; TEMP 36.4; O2SAT 92; BMI 32.4
--- NOTE | 2025-09-14 04:05 | PC.NURSE ---
Patient is alert and oriented x4. No periods of confusion or anxiety were noted during this shift. She was observed to be resting in bed with eyes closed, respirations even and unlabored on 3 L of oxygen via nasal cannula, and no apparent distress throughout the majority of the night. She has not had any complaints, such as pain, nausea, shortness of breath, dizziness, etc. this shift. Fatigue was noticed whenever she is awakened. Patient reports having a productive cough with small sputum production. Crackles heard upon auscultation of her left lung lobes. Scratches and bruises noted to patient's bilateral upper extremities. Scheduled medications administered per JAN. Breathing treatments given by RTs. She ambulates with standby assistance in her room/to the bathroom without difficulties (no swaying, shuffling, reports of dizziness). No bowel movement thus far this shift. Self-turns in bed. Oxygen saturations > 90%; continuous pulse ox intact. ACHS glucose checks performed. At this time, the patient remains resting in bed. No acute changes noted thus far. Bed alarm on. Call light within reach.
[2025-09-14 05:16] LABS: POC Glucose,Bedside 128 gm/dL (70-110)
[2025-09-14 05:51] VITALS: PULSE 87; PULSE 89; O2SAT 90
[2025-09-14] MEDS: BUDESONIDE 0.5MG/2ML NEB 0.5 MG IH (05:51)
[2025-09-14] MEDS: IPRATROPIUM/ALBUTEROL 3 ML NEB IH ×2 (05:51→11:17)
[2025-09-14 06:36] LABS: Hematocrit 39.0 % (37.0-47.0); Hemoglobin 12.3 g/dL (12.2-16.2); Immature Granulocytes % 5.8 %; Mean Corpuscular HGB Conc 31.5 g/dL (31.8-35.4); Mean Corpuscular Hemoglobin 27.7 pg (27.0-31.2); Mean Corpuscular Volume 87.8 fl (81-99); Nucleated Red Blood Cells % 0 %; Platelet Count 285 K/mm3 (142-424); Red Blood Count 4.44 M/mm3 (4.20-5.40); Red Cell Distribution Width-SD 42.4 fL; White Blood Count 20.5 K/mm3 (4.8-10.8)
[2025-09-14 06:43] LABS: Albumin Level 4.0 g/dl (3.5-5.0); Chloride 92 mmol/L (98-107); Potassium 3.8 mmoL/L (3.5-5.1); Sodium 135 mmol/L (136-145)
[2025-09-14 06:46] LABS: Alanine Aminotransferase 28 U/L (12-78); Albumin/Globulin Ratio 1.2 (1.1-1.8); Alkaline Phosphatase 132 U/L (38-126); Anion Gap 13.8 mEq/L (5-15); Aspartate Amino Transferase 40 U/L (14-36); Bilirubin,Total 0.8 mg/dl (0.2-1.3); Blood Urea Nitrogen 12 mg/dl (7-17); Calcium 9.2 mg/dl (8.4-10.2); Carbon Dioxide 33 mmol/L (22.0-30.0); Creatinine Clearance Estimated 97 mL/min (50-200); Creatinine,Serum 0.80 mg/dl (0.52-1.04); Estimated Glomerular Filt Rate 74 ml/min (>60); GFR (African American) 90 ML/MIN (>60); Globulin 3.3 g/dL (1.3-3.2); Glucose 141 mg/dl (74-100); Total Protein,Serum 7.3 g/dl (6.3-8.2)
[2025-09-14 07:48] VITALS: BP 126/64; PULSE 97; RESP 18; TEMP 36.7; O2SAT 93
[2025-09-14 08:15] LABS: Total Cells Counted 100
[2025-09-14 08:16] LABS: RBC Morphology Normal
[2025-09-14] MEDS: BUSPIRONE HCL 10 MG TABLET 15 MG PO (08:26)
[2025-09-14] MEDS: HEPARIN SODIUM 5,000 UNIT/ML VIAL 5000 UNIT SUBCUT (08:26)
[2025-09-14] MEDS: ASPIRIN EC 81MG TABLET 81 MG PO (08:26)
[2025-09-14] MEDS: FUROSEMIDE 100MG/10ML VIAL 80 MG IV (08:26)
[2025-09-14] MEDS: FLUTICASONE PROP 50MCG NASAL SPRAY 16GM 1 SPRAY NS (08:26)
[2025-09-14] MEDS: PREGABALIN 100MG CAPSULE 100 MG PO (08:27)
[2025-09-14] MEDS: ONDANSETRON 4MG ODT 4 MG SL (09:30)
--- NOTE | 2025-09-14 09:33 | P.PN_ITS ---
Subjective *Date: 09/14/25 *Time: 11:46 Interval history: No acute respiratory vents overnight. Patient admits continued improvement in her respiratory symptoms. Pulmonology Exam Inpatient Vital signs and Labs for Last 24 Hours: Temp Pulse Resp BP Pulse Ox O2 Del Method O2 Flow Rate 98.1 F 97 H 18 126/64 93 L Nasal Cannula 3 09/14/25 07:48 09/14/25 07:48 09/14/25 07:48 09/14/25 07:48 09/14/25 07:48 09/14/25 09:00 09/14/25 09:00 Laboratory Results - last 24 hr 09/13/25 12:16: POC Glucose 291 H 09/13/25 16:05: POC Glucose 220 H 09/13/25 20:10: POC Glucose 114 H 09/14/25 04:52: POC Glucose 128 H 09/14/25 05:33: WBC 20.5 H*, RBC 4.44, Hgb 12.3, Hct 39.0, MCV 87.8, MCH 27.7, MCHC 31.5 L, RDW 13.6, Plt Count 285, MPV 11.9 H, Neut % (Auto) 57.8, Lymph % (Auto) 24.2, [place] % (Auto) 8.7, Eos % (Auto) 2.2, Baso % (Auto) 1.3, Neut # (Auto) 11.9 H, Lymph # (Auto) 5.0 H, [place] # (Auto) 1.8 H, Eos # (Auto) 0.5 H, Baso # (Auto) 0.3 H, Total Counted 100, Neutrophils % (Manual) 59, Lymphocytes % (Manual) 32, Monocytes % (Manual) 5, Eosinophils % (Manual) 3, Basophils % (Manual) 1.0, Platelet Estimate Normal, RBC Morphology Normal, Sodium 135 L, Potassium 3.8 D, Chloride 92 L, Carbon Dioxide 33 H, Anion Gap 13.8, BUN 12, Creatinine 0.80, Estimated Creat Clear 97, Estimated GFR 74, Est GFR ( Amer) 90, Glucose 141 H D, Calcium 9.2, Total Bilirubin 0.8, AST 40 H D, ALT 28, Alkaline Phosphatase 132 H, Total Protein 7.3, Albumin 4.0 D, Globulin 3.3 H, Albumin/Globulin Ratio 1.2 Temp Pulse Resp BP Pulse Ox O2 Del Method O2 Flow Rate 97.9 F 82 16 127/83 94 L Nasal Cannula 4 09/10/25 08:00 09/10/25 08:00 09/10/25 08:00 09/10/25 08:00 09/10/25 08:00 09/10/25 09:00 09/10/25 09:00 Laboratory Results - last 24 hr 09/09/25 05:19: C-Reactive Protein 222.0 H 09/09/25 11:43: POC Glucose 175 H 09/09/25 16:05: POC Glucose 222 H 09/09/25 20:15: POC Glucose 174 H 09/10/25 05:18: WBC 24.5 H* D, RBC 4.33, Hgb 12.2 D, Hct 38.0, MCV 87.8, MCH 27.7, MCHC 31.6 L, RDW 13.7, Plt Count 272, MPV 11.4 H, Neut % (Auto) 67.2, Lymph % (Auto) 18.4, [place] % (Auto) 10.8 H, Eos % (Auto) 0.8, Baso % (Auto) 0.4, Neut # (Auto) 16.5 H, Lymph # (Auto) 4.5, [place] # (Auto) 2.7 H, Eos # (Auto) 0.2, Baso # (Auto) 0.1, Total Counted 100, Neutrophils % (Manual) 68, Lymphocytes % (Manual) 18, Monocytes % (Manual) 13 H, Eosinophils % (Manual) 1, Platelet Estimate Normal, RBC Morphology Normal, Sodium 136, Potassium 3.1 L, Chloride 92 L, Carbon Dioxide 33 H, Anion Gap 14.1, BUN 17, Creatinine 0.90, Estimated Creat Clear 92, Estimated GFR 65, Est GFR ( Amer) 78, Glucose 148 H, Calcium 8.2 L, Magnesium 1.9, Total Bilirubin 0.6, AST 58 H, ALT 45, Alkaline Phosphatase 157 H, Total Protein 6.8, Albumin 3.9, Globulin 2.9, Albumin/Globulin Ratio 1.3 I & O for Labs for Last 24 Hours: Intake & Output 09/11/25 09/12/25 09/13/25 09/14/25 23:59 23:59 23:59 23:59 Intake Total 1770 / 1770 970 / 1210 1240 / 1540 400 / 400 Output Total 1000 / 1000 0 / 0 0 / 0 0 / 0 Balance 770 / 770 970 / 1210 1240 / 1540 400 / 400 Weight 174 lb 9.6 oz 168 lb 11.2 oz 172 lb 171 lb 15.651 oz Intake & Output 09/07/25 09/08/25 09/09/25 09/10/25 23:59 23:59 23:59 23:59 Intake Total 1120 / 2320 1640 / 2120 930 / 930 Output Total 300 / 300 2100 / 2300 200 / 200 Balance 820 / 2020 -460 / -180 730 / 730 Weight 195 lb 7 oz 195 lb 6.931 oz 183 lb 6.4 oz Microbiology Reports for the Last 24 Hours: Microbiology 09/08/25 12:36 Blood Blood Culture - Final NO GROWTH AFTER 5 DAYS 09/08/25 12:33 Blood Blood Culture - Final NO GROWTH AFTER 5 DAYS Microbiology 09/08/25 01:30 Sputum - Expectorated Sputum Gram Stain - Final 09/08/25 01:30 Sputum - Expectorated Sputum Sputum Culture - Final 09/08/25 12:33 Blood Blood Culture - Preliminary NO GROWTH AFTER 24 HOURS 09/08/25 12:36 Blood Blood Culture - Preliminary NO GROWTH AFTER 24 HOURS Constitutional: Present moderate distress Head: Present normocephalic and atraumatic ENT: Present normal exam, normal oropharynx and mucous membranes moist Neck: Present normal inspection and full ROM Respiratory: Present respiratory distress, rhonchi and able to speak in complete sentences; Absent wheezes Cardiac: Present S1/S2, Tachycardia and radial pulses present GI: Present soft and distention; Absent tenderness or guarding Rectal (female): Present deferred (female): Present deferred Skin: Present intact; Absent cyanosis or jaundice Neuro: Present alert, awake and oriented x 3 Extremities: Present normal inspection; Absent clubbing or cyanosis Psychiatric: Present normal affect and cooperative Assessment and Plan *Assessment and plan (1) Acute on chronic hypoxic respiratory failure: Status: Resolved Category: Medical Code(s): J96.21 - Acute and chronic respiratory failure with hypoxia (2) Pneumonia: Status: Acute Qualifiers: Laterality: unspecified laterality Lung location: unspecified part of lung Pneumonia type: due to unspecified organism Qualified Code(s): J18.9 - Pneumonia, unspecified organism Category: Medical Code(s): J18.9 - Pneumonia, unspecified organism Plan Ms. Moctezuma is a 55-year-old female significant smoking history, diagnosis of COPD, at baseline on 2 L nasal cannula oxygen supplementation, using Trelegy 200 inhaler, and Lasix the hospital worsening respiratory status discharged home on Trelegy 200 inhaler along with ceftriaxone azithromycin for possible community- acquired pneumonia presented to the ER again with worsening respiratory send pulmonary was called for further evaluation and management. CTA chest mixed with upper lobe infiltrates improving from prior, worsening left lower lobe consolidative changes. No evidence of pulmonary embolism. Afebrile. Hemodynamically stable. Neutrophilic predominant leukocytosis upon admission continued to worsen. Complaints of respiratory viral PCR panel negative. Blood and sputum cultures no growth so far. Nasal MRSA PCR pending. Received vancomycin and cefepime in the ER. Currently receiving Zosyn. Also receiving diuretics for volume overload On initial examination severe respiratory distress. Bilateral diffuse wheezing. Interval update: No respiratory events overnight. Chest x-ray from this morning improving bilateral pulmonary infiltrates. Despite patient continued to have leukocytosis given her improving clinical symptoms, oxygen requirements, chest x-ray findings and completed 6-day course of Zosyn at this point of time the plan was made to discharge the patient to complete a 7-day course with levofloxacin from pulmonary standpoint. She also completed 3-day course of azithromycin 500 mg daily. Oxygen requirements weaned to her home 2 L nasal and saturations maintained at 90% and above. Plan: Incentive spirometry and flutter DuoNebs every 6 hours along with Pulmicort every 12 scheduled. Continue home Breztri upon discharge Wean antibiotics to levofloxacin to complete a total of 7-day course including her Zosyn Continue oxygen supplementation to maintain O2 saturation goal of 90% and above # Thank you for involving pulmonary in this patient care. Will follow the patient in pulmonary clinic 1 to 2 weeks postdischarge
[2025-09-14] MEDS: humaLOG 100 UNITS/ML 10ML VIAL (SSI) SUBCUT (10:57)
--- NOTE | 2025-09-14 11:03 | XR_ITS ---
FINAL REPORT CLINICAL HISTORY: hypoxia.. Shortness of breath..pneumonia COMPARISON: 09/11/2025 FINDINGS: A single frontal view of the chest was obtained. Patchy bilateral upper lobe airspace opacities are moderately improved compared to the prior exam. Right basilar airspace disease is nearly resolved. There is no evidence of effusion or pneumothorax. Mediastinum is unremarkable. Heart size is normal. IMPRESSION: Improving multifocal pneumonia. Reviewed, Interpreted and Dictated by Sylvie Glover MD Transcribed by Zahira Joseph Authenticated and [facility]
--- NOTE | 2025-09-14 11:09 | EXP.DC.SUM ---
General Admission date:: 09/08/25 Discharge date: 09/14/25 HPI HPI HPI: Ms. Moctezuma is a 55-year-old female who was recently admitted for pneumonia. Just discharged last week on oral antibiotics to complete course. Chronic respiratory failure on 2 to 4 L. Has history of COPD and obesity. She presented for injection with pain clinic and they were concerned for her dyspnea and sent her to the ER for evaluation. On arrival she complains of shortness of breath, increased swelling in her legs over the past several days. Says she felt good for 1 day after admission but then began feeling bad again with worsening shortness of breath and weakness. Denies chest pain, nausea, vomiting. Is alert and oriented x 4. On workup in the ER, found to have persistent pneumonia on chest imaging. Also found incidentally to have foreign body in her distal ileum. White count still marginally elevated at 12.7. Severe edema in her lower extremities. Medicine consulted for further treatment of persistent pneumonia and possible CHF exacerbation along with foreign body in colon. On arrival to the floor, patient complains of some mild abdominal discomfort. Feeling better on 3 L oxygen. Initiated on diuretics, no significant urine output as of yet. States she has been taking her diuretics at home but has noticed increased swelling. Denies any jonathon fever. Denies productive cough. Also states that she has got some constipation and has not had a good bowel movement in a day or 2. Hospital Course Hospital Course Hospital Course: Ms. Moctezuma is a 55-year-old female with COPD, obesity, neuropathy, depression who was just admitted for pneumonia. Completed her antibiotic course with Levaquin 750 mg daily. Presents with worsening swelling in her legs and shortness of breath. Workup in the ER concerning for persistent left lower lobe pneumonia and volume overload. Discussed case with ER, request admission for continued treatment of pneumonia and diuresis. I decided to admit for aggressive diuresis, pulmonology consult, optimization of care. Patient stabilized. Appears euvolemic today. More alert and oriented today. Scared to go home. Completing IV antibiotics over the next 24 hours. Counseled she will be stable at discharge in the morning. Still has not passed foreign body. No nausea or vomiting. Problems addressed as follows: Community-acquired pneumonia COPD Chronic hypoxemic respiratory failure - Patient presented with persistent versus recurrent community-acquired pneumonia. Initially required 3 to 4 L nasal cannula oxygen. Baseline during the day while awake is 2 L. Due to her recent admission and discharge, pulmonology was consulted again to assist with care. Initially treated with Zosyn and azithromycin. Completed 3-day course of 500 mg daily azithromycin. Continued Zosyn for 6 days. Will administer single dose Levaquin on day after discharge to complete 7-day total course of antibiotics for broad coverage and treatment of atypical community-acquired pneumonia. Back to baseline oxygen. Continue 2 L during the day and 4 L at night for goal sats greater 90%. White count showed some improvement but is hovered between 17 and 20 for a few days. Patient remains afebrile. Clinically is overall better. Serial imaging showing improvement in her multifocal pneumonia. Kidney function remained normal during admission. Continue Singulair 10 mg nightly, Trelegy 200 inhaler, DuoNebs every 6 hours as needed at home Foreign body Fatty liver - noted incidentally on abdomen CT and pelvis. Per my review, appears to have pendent or some type of piece of jewelry in her distal ileum near ileocecal junction. Treated with bowel prep. Had numerous bowel movements. Serial imaging showed no movement of the pendent. Having bowel movements however with no blood. Low concern for obstruction or acute problem at this time. Would benefit from repeat imaging in 2 to 4 weeks to monitor for passage. If still has no passage in the next month, consider referral to surgery or GI for possible colonoscopy to attempt to retrieve foreign body. Right upper quadrant ultrasound with fatty infiltration of the liver. No gallstones and gallbladder. No scarring of liver, patent portal vein Neuropathy: Continue Lyrica decreased to 50 mg 3 times a day during admission due to oversedation on the 150 3 times a day. Gradually increase to 100 3 times a day prior to discharge. Strongly encourage consideration of reducing dosage due to patient's polypharmacy and oversedation in conjunction with her Ambien at night. #HFpEF ? Frankly overloaded on presentation with 3+ edema. Diuresed well during admission. Initiated on Lasix 80 mg IV twice daily. Had negative volume status during admission. No longer having any edema. Kidney function remained stable. Transitioned to oral diuretics at discharge. Had been on 20 mg daily. Increase to 40 mg daily to maintain euvolemic state. - BNP only 946 however given her oxygen requirement, volume overload in legs, concern for component of CHF exacerbation. Previous echo obtained on 09/02 with inability to estimate RVSP. LV hyperdynamic. #Anxiety/depression: # Insomnia: - continue home BuSpar 15 mg twice daily, Cymbalta 60 mg, Paxil 10 mg nightly. - Holding Valium, discontinued Ambien. Recommend discontinuing as an outpatient due to oversedation #GERD: Continue PPI. Diabetes confirmed: Held metformin during admission. A1c 6.6. Resume metformin at discharge Total time spent on discharge 35 minutes in counseling, documentation, chart review, and direct care with patient. Exam Data for Last 24 hours Vital signs and Labs for Last 24 Hours: Temp Pulse Resp BP Pulse Ox O2 Del Method O2 Flow Rate 98.1 F 97 H 18 126/64 93 L Nasal Cannula 3 09/14/25 07:48 09/14/25 07:48 09/14/25 07:48 09/14/25 07:48 09/14/25 07:48 09/14/25 11:00 09/14/25 11:00 Laboratory Results - last 24 hr 09/13/25 12:16: POC Glucose 291 H 09/13/25 16:05: POC Glucose 220 H 09/13/25 20:10: POC Glucose 114 H 09/14/25 04:52: POC Glucose 128 H 09/14/25 05:33: WBC 20.5 H*, RBC 4.44, Hgb 12.3, Hct 39.0, MCV 87.8, MCH 27.7, MCHC 31.5 L, RDW 13.6, Plt Count 285, MPV 11.9 H, Neut % (Auto) 57.8, Lymph % (Auto) 24.2, [place] % (Auto) 8.7, Eos % (Auto) 2.2, Baso % (Auto) 1.3, Neut # (Auto) 11.9 H, Lymph # (Auto) 5.0 H, [place] # (Auto) 1.8 H, Eos # (Auto) 0.5 H, Baso # (Auto) 0.3 H, Total Counted 100, Neutrophils % (Manual) 59, Lymphocytes % (Manual) 32, Monocytes % (Manual) 5, Eosinophils % (Manual) 3, Basophils % (Manual) 1.0, Platelet Estimate Normal, RBC Morphology Normal, Sodium 135 L, Potassium 3.8 D, Chloride 92 L, Carbon Dioxide 33 H, Anion Gap 13.8, BUN 12, Creatinine 0.80, Estimated Creat Clear 97, Estimated GFR 74, Est GFR ( Amer) 90, Glucose 141 H D, Calcium 9.2, Total Bilirubin 0.8, AST 40 H D, ALT 28, Alkaline Phosphatase 132 H, Total Protein 7.3, Albumin 4.0 D, Globulin 3.3 H, Albumin/Globulin Ratio 1.2 I & O for Last 24 hours: Intake & Output 09/11/25 09/12/25 09/13/25 09/14/25 23:59 23:59 23:59 23:59 Intake Total 1770 / 1770 970 / 1210 1240 / 1540 400 / 400 Output Total 1000 / 1000 0 / 0 0 / 0 0 / 0 Balance 770 / 770 970 / 1210 1240 / 1540 400 / 400 Weight 79.197 kg 76.521 kg 78.018 kg 78.008 kg Microbiology Reports for the Last 24 Hours: Microbiology 09/08/25 12:36 Blood Blood Culture - Final NO GROWTH AFTER 5 DAYS 09/08/25 12:33 Blood Blood Culture - Final NO GROWTH AFTER 5 DAYS Constitutional Constitutional: no acute distress, obese, chronically ill appearing and cooperative *Routine HEENT Exam Head: Present normocephalic Eye: Present EOMI and PERRL ENT: Present mucous membranes moist *Routine Neck Exam Neck: Present supple; Absent lymphadenopathy *Routine Respiratory Exam Respiratory: Present CTA bilaterally, prolonged expiratory phase and normal respiratory effort; Absent rhonchi, wheezes or crackles *Routine Cardiovascular Exam Cardiovascular: Present RRR *Routine Abdominal Exam Abdominal: Present soft and normoactive bowel sounds; Absent tenderness *Routine Rectal Exam Patient deferred: visual exam *Routine Exam Patient deferred: external exam *Routine Extremities Exam Extremities: Present edema; Absent cyanosis or clubbing *Routine Skin Exam Skin: Present intact, warm and ecchymosis (Presence of senile purpura on arms); Absent rash *Routine Neurological Exam Neurological: Present alert, oriented X3 and moving all extremities; Absent altered mental status Results Data Completed and Pending Labs on day of discharge: Labs from last 24 hours 09/14/25 09/14/25 09/13/25 05:33 04:52 20:10 WBC 20.5 H* RBC 4.44 Hgb 12.3 Hct 39.0 MCV 87.8 MCH 27.7 MCHC 31.5 L RDW 13.6 Plt Count 285 MPV 11.9 H Neut % (Auto) 57.8 Lymph % (Auto) 24.2 [place] % (Auto) 8.7 Eos % (Auto) 2.2 Baso % (Auto) 1.3 Neut # (Auto) 11.9 H Lymph # (Auto) 5.0 H [place] # (Auto) 1.8 H Eos # (Auto) 0.5 H Baso # (Auto) 0.3 H Total Counted 100 Neutrophils % (Manual) 59 Lymphocytes % (Manual) 32 Monocytes % (Manual) 5 Eosinophils % (Manual) 3 Basophils % (Manual) 1.0 Platelet Estimate Normal RBC Morphology Normal Sodium 135 L Potassium 3.8 D Chloride 92 L Carbon Dioxide 33 H Anion Gap 13.8 BUN 12 Creatinine 0.80 Estimated Creat Clear 97 Estimated GFR 74 Est GFR ( Amer) 90 Glucose 141 H D POC Glucose 128 H 114 H Calcium 9.2 Total Bilirubin 0.8 AST 40 H D ALT 28 Alkaline Phosphatase 132 H Total Protein 7.3 Albumin 4.0 D Globulin 3.3 H Albumin/Globulin Ratio 1.2 09/13/25 09/13/25 16:05 12:16 WBC RBC Hgb Hct MCV MCH MCHC RDW Plt Count MPV Neut % (Auto) Lymph % (Auto) [place] % (Auto) Eos % (Auto) Baso % (Auto) Neut # (Auto) Lymph # (Auto) [place] # (Auto) Eos # (Auto) Baso # (Auto) Total Counted Neutrophils % (Manual) Lymphocytes % (Manual) Monocytes % (Manual) Eosinophils % (Manual) Basophils % (Manual) Platelet Estimate RBC Morphology Sodium Potassium Chloride Carbon Dioxide Anion Gap BUN Creatinine Estimated Creat Clear Estimated GFR Est GFR ( Amer) Glucose POC Glucose 220 H 291 H Calcium Total Bilirubin AST ALT Alkaline Phosphatase Total Protein Albumin Globulin Albumin/Globulin Ratio DS: Diagnosis Discharge Diagnosis (1) Acute on chronic hypoxic respiratory failure: Status: Resolved Code(s): J96.21 - Acute and chronic respiratory failure with hypoxia (2) Pneumonia: Status: Acute Code(s): J18.9 - Pneumonia, unspecified organism Qualifiers: Laterality: unspecified laterality Lung location: unspecified part of lung Pneumonia type: due to unspecified organism Qualified Code(s): J18.9 - Pneumonia, unspecified organism Meds Home Medications and Allergies Home Medications ?Medication ?Instructions ?Recorded ?Confirmed ?Type montelukast 10 mg tablet 10 mg PO HS 05/12/21 09/08/25 History pantoprazole 40 mg tablet,delayed 40 mg PO DAILY 07/07/21 09/08/25 History release aspirin 81 mg tablet,delayed 81 mg PO DAILY 03/23/22 09/08/25 History release metformin 500 mg tablet 500 mg PO DAILY 08/03/22 09/08/25 History pravastatin 40 mg tablet 40 mg PO DAILY 08/21/22 09/08/25 History fluticasone fur. 200 mcg-umeclid 1 inh inhalation DAILY 01/07/24 09/08/25 History 62.5 mcg-vilant 25 mcg inhalat.powder (Trelegy Ellipta) pregabalin 150 mg capsule (Lyrica) 150 mg PO TID #90 caps 08/28/25 09/08/25 Rx Held on 09/14/25. Instructions: Would recommend decreasing dose to 100 mg 3 times a day due to oversedation during admission. Further discussion with PCP buspirone 15 mg tablet 15 mg PO BID 09/02/25 09/08/25 History diazepam 5 mg tablet 5 mg PO DAILY 09/02/25 09/08/25 History duloxetine 60 mg capsule,delayed 60 mg PO DAILY 09/02/25 09/08/25 History release estradiol 0.01% (0.1 mg/gram) 2 g vaginal DAILY 09/02/25 09/08/25 History vaginal cream fluticasone propionate 50 2 spray intranasal DAILY 09/02/25 09/08/25 History mcg/actuation nasal spray,suspension paroxetine HCl 10 mg tablet 10 mg PO HS 09/02/25 09/08/25 History zolpidem 10 mg tablet 10 mg PO HS 09/02/25 09/08/25 History Held on 09/14/25. Instructions: Causes oversedation. Would not recommend resuming baclofen 10 mg tablet 10 mg PO TID 09/09/25 09/09/25 History levofloxacin 750 mg tablet 750 mg PO DAILY #1 tab 09/14/25 Rx furosemide 40 mg tablet (Lasix) 40 mg PO DAILY #30 tabs 09/17/25 Rx New Prescriptions to Start Prescriptions: furosemide [Lasix] Solis Carlos levofloxacin Solis Carlos Allergies Allergy/AdvReac Type Severity Reaction Status Date / Time Sulfa (Sulfonamide Allergy Rash Verified 08/28/25 13:02 Antibiotics) Discharge Plan Disposition Patient Disposition: Home, Self-Care Condition: Good Discharge Order Discharge Orders: Discharge Order (Routine); Ordered 09/14/25 Ordered By: Solis Carlos Follow up Plan Follow up with: Tutu Vance MD [Primary Care Provider, Medical] - Enter time for follow up Yesika Ppoe MD [Physician, Pulmonology] - 09/28/25 10:40 am Referral Note: appointment with physical therapy in [place] 09/28/25 at 9:00 Prescriptions/Medication Reconciliation: New levofloxacin 750 mg tablet 750 mg PO DAILY Qty: 1 0RF furosemide [Lasix] 40 mg tablet 40 mg PO DAILY Qty: 30 0RF Continued metformin 500 mg tablet 500 mg PO DAILY pravastatin 40 mg tablet 40 mg PO DAILY aspirin 81 mg tablet,delayed release (DR/EC) 81 mg PO DAILY Trelegy Ellipta 200-62.5-25 mcg blister with device 1 inh inhalation DAILY Patient Comments: INHALE 1 PUFF BY MOUTH EVERY DAY montelukast 10 MG tablet 10 mg PO HS pantoprazole 40 mg tablet,delayed release (DR/EC) 40 mg PO DAILY baclofen 10 mg tablet 10 mg PO TID Patient Comments: TAKE 1 TABLET BY MOUTH THREE TIMES DAILY paroxetine HCl 10 mg tablet 10 mg PO HS Patient Comments: TAKE 1 TABLET BY MOUTH EVERY DAY IN THE EVENING FOR MOOD estradiol 0.01 % (0.1 mg/gram) cream 2 g VAGINAL DAILY Patient Comments: INSERT 2 GRAMS VAGINALLY DAILY fluticasone propionate 50 mcg/actuation spray,suspension 2 spray INTRANASAL DAILY Patient Comments: SHAKE LIQUID AND USE 2 SPRAYS IN EACH NOSTRIL DAILY DIRECTED diazepam 5 mg tablet 5 mg PO DAILY Patient Comments: TAKE 1 TABLET BY MOUTH EVERY DAY buspirone 15 mg tablet 15 mg PO BID Patient Comments: TAKE 1 TABLET BY MOUTH TWICE DAILY DIRECTED FOR ANXIETY duloxetine 60 mg capsule,delayed release(DR/EC) 60 mg PO DAILY Patient Comments: TAKE 1 CAPSULE BY MOUTH EVERY DAY IN THE MORNING FOR MOOD Held pregabalin [Lyrica] 150 mg capsule 150 mg PO TID Qty: 90 2RF Hold Instructions: Would recommend decreasing dose to 100 mg 3 times a day due to oversedation during admission. Further discussion with PCP zolpidem 10 mg tablet 10 mg PO HS Hold Instructions: Causes oversedation. Would not recommend resuming Discontinued furosemide 20 mg tablet 20 mg PO DAILY Patient Comments: TAKE 1 TABLET BY MOUTH EVERY DAY Other Ambulatory Orders: Rehab Eval, OP (Routine) Timeframe: 2 Days Facility: [facility] - Location: Physical Therapy [place] Ordered By: Solis Carlos Problem Reconciliation Problems Reviewed?: Yes Patient Discharge Instructions ACTIVITY: Continue current activity DIET: continue same diet Patient Instructions: Pneumonia in Adults, DI for Foreign Body, Swallowed in Adults, Stop Light Pneumonia, Stop Light COPD, Stop Light Heart Failure Print Language: [place] Konger Providers Primary Care Provider: Tutu Vance Admit Provider: Solis Carlos Attending Provider: Solis Carlos
[2025-09-14 11:17] VITALS: PULSE 92; O2SAT 91
[2025-09-14 11:43] VITALS: BP 124/83; PULSE 102; RESP 18; TEMP 36.6; O2SAT 92
--- NOTE | 2025-09-15 10:03 | SW/DCPLANNER ---
Spoke with patient on the phone. Patient stated that she stills feel bad and weak. Patient stated that she is aware of her upcoming appointment. Patient stated that she was able to get her new medicine picked up from [facility]. Patient stated that she has no concerns or questions at this time. 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
[2025-09-15 11:09] LABS: POC Glucose,Bedside 209 gm/dL (70-110)
--- NOTE | 2025-09-17 11:31 | CARE MANAGER ---
Lasix prescription called into [facility] in [place], per patient request. Originally sent to [facility].
== END 2025-09-14 12:55 | disposition home or self-care (01) ==
LOC: ER 15:43 → 2ND 16:28
PROVIDERS: Internal Medicine; Internal Medicine Pulmonary Disease; Admitting Provider Internal Medicine Adolescent Medicine; Emergency Provider Emergency Medicine; PCP Emergency Medicine; Visit Provider Internal Medicine Adolescent Medicine
DX: I11.0 Hypertensive heart disease with heart failure (principal); I50.33 Acute on chronic diastolic (congestive) heart failure; J18.9 Pneumonia, unspecified organism; J96.11 Chronic respiratory failure with hypoxia; E66.811 Obesity, class 1; E11.42 Type 2 diabetes mellitus with diabetic polyneuropathy; Z79.4 Long term (current) use of insulin; M47.26 Other spondylosis with radiculopathy, lumbar region; F32.A Depression, unspecified; T18.4XXA Foreign body in colon, initial encounter; J44.89 Other specified chronic obstructive pulmonary disease; F41.9 Anxiety disorder, unspecified; G47.00 Insomnia, unspecified; Z79.82 Long term (current) use of aspirin; Z85.9 Personal history of malignant neoplasm, unspecified; F17.210 Nicotine dependence, cigarettes, uncomplicated; E78.5 Hyperlipidemia, unspecified; K76.0 Fatty (change of) liver, not elsewhere classified; K21.9 Gastro-esophageal reflux disease without esophagitis; Z99.81 Dependence on supplemental oxygen; G89.29 Other chronic pain; Z79.84 Long term (current) use of oral hypoglycemic drugs; Z68.36 Body mass index [BMI] 36.0-36.9, adult
CPT/HCPCS: 0223U; 36415; 71045; 71275; 72125; 72128; 72131; 74018; 74177; 76705; 80053; 81001; 82803; 82962; 83036; 83605; 83690; 83735; 83880; 84145; 84484; 85007; 85025; 86140; 87040; 87070; 87081; 87205; 87636; 89220; 94640; 94667; 94668; 94761; 97162; 97166; 99285; J0456; J1644; J1938; J2405; J2543; J2919; J3375; J7050; Q0162; Q9967

== ENCOUNTER 2025-09-22 15:55 | Observation (INO) | payer MEDICARE, MEDICAID, SELFPAY ==
[2025-09-22] VITALS (20 sets, daily range): BP systolic 101–131; BP diastolic 48–84; PULSE 65–102; RESP 12–20; TEMP 36.9–37; O2SAT 90–97; BMI 30.2; BMI 33.0
--- NOTE | 2025-09-22 16:01 | CT_ITS ---
PROCEDURE INFORMATION: Exam: CTA Chest With Contrast Exam date and time: 09/22/2025 5:29 PM Age: 55 years old Clinical indication: Shortness of breath; Additional info: Short of breath TECHNIQUE: Imaging protocol: Computed tomographic angiography of the chest with contrast. Exam focused on the arteries. 3D rendering (Not supervised by radiologist): MIP and/or 3D reconstructed images were created by the technologist. Radiation optimization: All CT scans at this facility use at least one of these dose optimization techniques: automated exposure control; mA and/or kV adjustment per patient size (includes targeted exams where dose is matched to clinical indication); or iterative reconstruction. Contrast material: ISOVUE; Contrast volume: 70 ml; Contrast route: INTRAVENOUS (IV); COMPARISON: CT ANGIO CHEST PE PROTOCOL 09/08/2025 1:10 PM FINDINGS: Pulmonary arteries: The pulmonary arteries enhance appropriately with no evidence of pulmonary embolism. Aorta: Mild aortic ectasia/tortuosity and calcific atherosclerosis. No aortic aneurysm or dissection. No mediastinal hematoma. Thyroid: The visualized thyroid gland demonstrates no gross abnormality. Trachea: Borderline mediastinal dayami enlargement in the right paratracheal, pretracheal retrocaval, and AP window distributions is slightly decreased. Mildly enlarged prevascular nodes are slightly decreased in size. Mild right hilar dayami enlargement unchanged. Lungs: Granulomatous calcifications noted. Mild centrilobular emphysematous changes in the upper lung [place]. The previously identified multifocal bilateral alveolar opacities concerning for multifocal pneumonia are moderately improved from 09/08/2025. No new areas of involvement. The previous consolidative elements in the left base, lingula, and right middle lobe are decreased. No cavitation. Pleural spaces: No pleural effusion. No pneumothorax. Heart: Heart size normal. No pericardial effusion. Coronary arteries: No coronary artery calcification. Esophagus: The esophagus is largely contracted but demonstrates no gross abnormality. Lymph nodes: No supraclavicular or axillary adenopathy. Spleen: Granulomatous calcifications in the spleen. Intestine: Partially visualized colon demonstrates moderate stool content suggesting constipation. Bones/joints: Spinal infusion pump in the right upper back posterior subcutaneous fat partially visualized, without gross complication. Intrathecal infusion catheter in the lower thoracic thecal sac unchanged without gross complication. No acute osseous abnormalities. 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 Soft tissues: No acute soft tissue abnormalities. IMPRESSION: 1. No evidence of pulmonary embolism or aortic dissection. No acute vascular abnormalities. 2. The previously identified multifocal bilateral alveolar opacities concerning for multifocal pneumonia are moderately improved. No cavitation/abscess or empyema. 3. Improved mediastinal dayami enlargement and unchanged mild right hilar dayami enlargement. 4. Mild centrilobular emphysematous changes. 5. Additional nonemergent findings detailed above. COMMENTS: The presence of pulmonary emphysema on CT is an independent risk factor for lung cancer. In the absence of a history or active diagnosis of lung cancer, it is recommended that this patient with emphysema be evaluated for enrollment in a low dose CT lung cancer screening program.
--- NOTE | 2025-09-22 16:01 | CT_ITS ---
PROCEDURE INFORMATION: Exam: CT Head Without Contrast Exam date and time: 09/22/2025 5:27 PM Age: 55 years old Clinical indication: Altered mental status/memory loss TECHNIQUE: Imaging protocol: Computed tomography of the head without contrast. Radiation optimization: All CT scans at this facility use at least one of these dose optimization techniques: automated exposure control; mA and/or kV adjustment per patient size (includes targeted exams where dose is matched to clinical indication); or iterative reconstruction. COMPARISON: CT HEAD/BRAIN WO CON 09/01/2025 8:55 PM FINDINGS: Brain: The IACs are grossly normal. No extra-axial fluid collections. No evidence of acute intracranial hemorrhage. Cerebral/cerebellar scott-white differentiation is well maintained. No intracranial mass lesions. No midline shift or herniation. Cerebral ventricles: Ventricles normal. Pituitary gland and sella: The sella is grossly normal. Paranasal sinuses: Mucous retention cyst versus polyp formation in the left sphenoid sinus suggesting mild chronic sinus inflammatory disease. No fluid levels. Visualized paranasal sinuses are otherwise clear. Mastoid air cells: Visualized mastoid air cells are clear. Orbital cavities: No acute intraorbital findings. Bones: No acute osseous findings. Hyperostosis frontalis interna incidentally noted. Soft tissues: No acute soft tissue findings. Vasculature: Mild calcific atherosclerosis. No asymmetric vascular hyperdensities suggestive of thrombosis are identified. IMPRESSION: No acute intracranial process. No intracranial hemorrhage or mass effect.
--- NOTE | 2025-09-22 16:11 | ED_ITS ---
<Statement entered by Kassandra Houser MD - 09/22/25 22:44> I was consulted by the [facility], and we discussed the complexity of the problems being addressed. I approved the treatment and management plan for this patient's care in the emergency department, thus performing a substantive portion of the medical decision making. Kassandra Houser MD, NIRAJ, FACEP Discharge Plan Disposition Patient Disposition: Admitted Clinical Impressions Clinical Impression: Opiate overdose, Altered mental status Pneumonia Qualifiers: Pneumonia type: due to unspecified organism Laterality: unspecified laterality Lung location: unspecified part of lung Qualified Code(s): J18.9 - Pneumonia, unspecified organism Chronic lower back pain Qualifiers: Back pain laterality: bilateral Sciatica presence: with sciatica Sciatica laterality: bilateral sciatica Qualified Code(s): M54.42 - Lumbago with sciatica, left side Discharge ED Provider: Kassandra Houser HPI <Rukhsana Beckyartemio (ED), GRAPHIC ARTIST - Last Filed: 09/22/25 18:31> General Chief Complaint: Altered Mental Status Stated Complaint: altered mental status Time Seen by Provider: 09/22/25 16:01 History of Present Illness HPI narrative: 55-year-old female presents to the ED via EMS for altered mental status since last night. Patient's mom noticed that she was more confused than normal last night. She does have history of pain pump with morphine and it. Patient had hypotension for EMS. She arrived to the ER with blood pressure of 90s over 50s. Patient was sitting on the porch with her oxygen tubing in her hand and not hooked up to her oxygen tank. EMS states that she just seemed confused. She is alert and oriented x 4 to us. Related Data Home Medications ?Medication ?Instructions ?Recorded ?Confirmed montelukast 10 mg tablet 10 mg PO HS 05/12/21 5 pantoprazole 40 mg tablet,delayed 40 mg PO DAILY 07/0709/22/25 release aspirin 81 mg tablet,delayed 81 mg PO DAILY 03/23/22 1 release metformin 500 mg tablet 500 mg PO DAILY 08/03/22 pravastatin 40 mg tablet 40 mg PO DAILY 08/21/2208/27 fluticasone fur. 200 mcg-umeclid 1 inh inhalation HAN Y 01/07/24 09/22/25 62.5 mcg-vilant 25 mcg inhalat.powder (Trelegy Ellipta) buspirone 15 mg tablet 15 mg PO BID 09/02/25 diazepam 5 mg tablet 5 mg PO DAILY 09/02/2509/22 duloxetine 60 mg capsule,delayed 60 mg PO DAILY 09/22/25 release estradiol 0.01% (0.1 mg/gram) 2 g vaginal DAILY 09/22/25 vaginal cream fluticasone propionate 50 2 spray intranasal DAILY 07/2009/22/25 mcg/actuation nasal spray,suspension paroxetine HCl 10 mg tablet 10 mg PO HS 09/02/2509/22 zolpidem 10 mg tablet 10 mg PO HS 09/02/25 5 Held on 09/14/25. Instructions: Causes oversedation. Would not recommend resuming baclofen 10 mg tablet 10 mg PO TID 09/09/25 Previous Rx's ?Medication ?Instructions ?Recorded pregabalin 150 mg capsule (Lyrica) 150 mg PO TID #90 c aps 08/28/25 Held on 09/14/25. Instructions: Would recommend decreasing dose to 100 mg 3 times a day due to oversedation during admission. Further discussion with PCP levofloxacin 750 mg tablet 750 mg PO DAILY #1 tab 08/27 furosemide 40 mg tablet (Lasix) 40 mg PO DAILY #30 tab s 09/17/25 Allergies Allergy/AdvReac Type Severity Reaction Status Date / Time Sulfa (Sulfonamide Allergy Rash Verified 09/17/25 11:42 Antibiotics) [facility] <Rukhsana Oliva (ED), GRAPHIC ARTIST - Last Filed: 09/22/25 18:31> [facility] Disclaimer: The information contained in this section may have been updated after the patient was seen, as this information can be updated by other users. Medical History Alteration in renal function History of hypertension Hyperlipidemia COPD (chronic obstructive pulmonary disease) Cancer Asthma Surgical History H/O thyroidectomy H/O total hysterectomy History of cancer surgery Family History Other No significant family history Social History (Updated 09/22/25 @ 19:14 by Aster Espinoza, ESTEFANIA) Smoking Status: Former smoker tobacco type: cigarettes packs per day: 1 alcohol intake: never substance use type: denies use current occupational status: other Travel in the last 8 weeks?: None household members: significant other and family housing: house 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 current occupational exposures/hazards: No caffeine: Yes Have you lived/traveled outside [place] in past 30 days?: No Contact w/someone who lives/traveled outside US past 30 days?: No Exposure to someone with infectious disease in past 14 days?: No Do you have a fever (greater than 100.4 F or 38 C)?: No Have you tested positive for COVID-19?: No Exposed to someone with COVID-19 in past 14 days?: No Do you have a sore throat?: No Do you have a cough?: No Do you have any weakness?: No Are you experiencing any nausea/vomitting?: No Do you have any diarrhea?: No Are you experiencing any unusual bleeding?: No Do you have any muscle aches/pain?: No Do you have any abdominal pain?: No Are you experiencing loss of taste or smell?: No Other Medical History Have you received the Flu Vaccine for this season: No Have you received the Pneumonia Vaccine: Yes <Rukhsana Oliva (ED), GRAPHIC ARTIST - Last Filed: 09/22/25 18:31> ROS Obtained: Yes Systems reviewed as appropriate & no additional complaints except as documented Constitutional Constitutional: Reports as per HPI Physical Exam <Rukhsana Oliva (ED), GRAPHIC ARTIST - Last Filed: 09/22/25 18:31> General General appearance: alert Head Head exam: normocephalic Eye Eye exam: Present PERRL and EOMI ENT ENT exam: Present normal oropharynx and mucous membranes moist Neck Neck exam: Present full ROM and trachea midline Respiratory Respiratory exam: Present wheezes and other (Rhonchi throughout) Cardiovascular Cardiovascular exam: Present regular rate, normal rhythm, normal heart sounds, +S1 and +S2 Abdominal Exam Abdominal exam: Present soft and normal bowel sounds Extremities Exam Extremities exam: Present full ROM Neurological Exam Neurological exam: Present alert and oriented X3 Psychiatric Psychiatric exam: Present anxious Skin Skin exam: Present warm, dry and erythema (Scabs to bilateral feet and legs) HEART Score <Rukhsana Oliva (ED), GRAPHIC ARTIST - Last Filed: 09/22/25 18:31> HEART Score HEART Score assessment performed?: Yes History (anamnesis): Moderately suspicious ECG: Non-specific disturbance Age: 45-65 years Risk factors: 1-2 risk factors Troponin: </= normal limit HEART Score: 4 <Kassandra Houser MD - Last Filed: 09/22/25 22:45> HEART Score HEART Score: 4 Critical Care <Rukhsana Oliva (ED), GRAPHIC ARTIST - Last Filed: 09/22/25 18:31> Critical Care Time Critical Care Time: No <Kassandra Houser MD - Last Filed: 09/22/25 22:45> Critical Care Time Critical Care Time: Yes Attestation: On 09/22/25, the high probability of a clinically significant, sudden or life threatening deterioration of the following system(s) required my full and direct attention, intervention and personal management. The time I documented below is in addition to time spent performing reported procedures but includes the following listed in this critical care notation. Total Time Total Critical Care Time: 35 Medical Decision Making <Rukhsana Oliva (ED), GRAPHIC ARTIST - Last Filed: 09/22/25 18:31> Bruno Inquiry Pt receiving controlled substance: No Bruno was queried for this patient: No Vital Signs Vital Signs: 09/22/25 15:56 09/22/25 16:00 09/22/25 16:00 Temperature 98.6 F 98.6 F Temperature Source Oral Pulse Rate 99 H 102 H Pulse Rate [Right] 102 H Respiratory Rate 20 20 Blood Pressure 125/48 L 125/48 L Blood Pressure [Right Arm] 125/48 L Blood Pressure Mean Blood Pressure Mean [Right Arm] 73 Blood Pressure Source Blood Pressure Position 02 Sat by Pulse Oximetry 95 96 96 Oxygen Delivery Method Nasal Cannula Oxygen Flow Rate (LPM) 2 09/22/25 16:01 09/22/25 17:00 09/22/25 17:52 Temperature Temperature Source Pulse Rate 75 90 82 Pulse Rate [Right] Respiratory Rate 12 Blood Pressure 116/51 L 123/76 117/84 Blood Pressure [Right Arm] Blood Pressure Mean Blood Pressure Mean [Right Arm] Blood Pressure Source Blood Pressure Position 02 Sat by Pulse Oximetry 94 L 96 95 Oxygen Delivery Method Oxygen Flow Rate (LPM) 09/22/25 18:00 09/22/25 19:00 09/22/25 19:01 Temperature Temperature Source Pulse Rate 98 H 75 Pulse Rate [Right] Respiratory Rate 12 17 Blood Pressure 131/70 101/84 L Blood Pressure [Right Arm] Blood Pressure Mean 89 Blood Pressure Mean [Right Arm] Blood Pressure Source Blood Pressure Position 02 Sat by Pulse Oximetry 97 93 L Oxygen Delivery Method Oxygen Flow Rate (LPM) 09/22/25 19:01 09/22/25 19:15 09/22/25 19:30 Temperature Temperature Source Pulse Rate 95 H 71 102 H Pulse Rate [Right] Respiratory Rate 13 Blood Pressure Blood Pressure [Right Arm] Blood Pressure Mean Blood Pressure Mean [Right Arm] Blood Pressure Source Blood Pressure Position 02 Sat by Pulse Oximetry 93 L 94 L Oxygen Delivery Method Oxygen Flow Rate (LPM) 09/22/25 19:33 09/22/25 19:33 09/22/25 19:56 Temperature 98.6 F Temperature Source Oral Pulse Rate 101 H 86 Pulse Rate [Right] Respiratory Rate 13 18 Blood Pressure 126/64 126/64 Blood Pressure [Right Arm] Blood Pressure Mean 68 Blood Pressure Mean [Right Arm] Blood Pressure Source Automatic Cuff Blood Pressure Position Supine 02 Sat by Pulse Oximetry 94 L Oxygen Delivery Method Nasal Cannula Oxygen Flow Rate (LPM) 2 09/22/25 20:00 09/22/25 20:00 09/22/25 20:03 Temperature Temperature Source Pulse Rate 73 100 H Pulse Rate [Right] Respiratory Rate Blood Pressure Blood Pressure [Right Arm] Blood Pressure Mean Blood Pressure Mean [Right Arm] Blood Pressure Source Blood Pressure Position 02 Sat by Pulse Oximetry 92 L 92 L Oxygen Delivery Method Room Air Oxygen Flow Rate (LPM) 09/22/25 20:09 09/22/25 20:09 09/22/25 20:15 Temperature Temperature Source Pulse Rate 102 H 72 Pulse Rate [Right] Respiratory Rate Blood Pressure 120/68 Blood Pressure [Right Arm] Blood Pressure Mean 81 Blood Pressure Mean [Right Arm] Blood Pressure Source Blood Pressure Position 02 Sat by Pulse Oximetry 90 L 94 L Oxygen Delivery Method Oxygen Flow Rate (LPM) 09/22/25 20:30 09/22/25 20:31 09/22/25 20:32 Temperature Temperature Source Pulse Rate 65 86 Pulse Rate [Right] Respiratory Rate Blood Pressure 117/81 Blood Pressure [Right Arm] Blood Pressure Mean 98 Blood Pressure Mean [Right Arm] Blood Pressure Source Blood Pressure Position 02 Sat by Pulse Oximetry 91 L 91 L Oxygen Delivery Method Oxygen Flow Rate (LPM) Lab Data Labs: Lab Results 09/22/25 16:30: WBC 11.6 H, RBC 3.85 L, Hgb 10.7 L, Hct 33.0 L, MCV 85.7, MCH 27.8, MCHC 32.4, RDW 13.4, Plt Count 240, MPV 12.2 H, Neut % (Auto) 65.0, Lymph % (Auto) 17.6, [place] % (Auto) 12.0 H, Eos % (Auto) 3.2, Baso % (Auto) 0.7, Neut # (Auto) 7.6, Lymph # (Auto) 2.0, [place] # (Auto) 1.4 H, Eos # (Auto) 0.4, Baso # (Auto) 0.1, VBG pH 7.37, VBG pCO2 59.2 H, VBG pO2 45.7 H, VBG HCO3 33.7 H, VBG Total CO2 35.5 H, VBG O2 Saturation 78.3 H, VBG Base Excess 8.4 H, VBG Lactic Acid 1.8, Sodium 136, Potassium 3.4 L, Chloride 94 L, Carbon Dioxide 36 H, Anion Gap 9.4, BUN 23 H, Creatinine 1.30 H, Estimated Creat Clear 57, Estimated GFR 42 L, Est GFR ( Amer) 51 L, Glucose 99, Calcium 8.4, Magnesium 1.1 L, Total Bilirubin 0.5, AST 45 H, ALT 23, Alkaline Phosphatase 99, Troponin I < 0.01, Total Protein 6.4, Albumin 2.9 L, Globulin 3.5 H, Albumin/Globulin Ratio 0.8 L, Lipase 28 09/22/25 17:50: Urine Color Yellow, Urine Appearance Clear, Urine pH 6.0, Ur Specific [place] 1.020, Urine Protein Negative, Urine Glucose (UA) Negative, Urine Ketones Negative, Urine Blood Negative, Urine Nitrate Negative, Urine Bilirubin Negative, Urine Urobilinogen 0.2, Ur Leukocyte Esterase Negative, Urine RBC None, Urine WBC None, Ur Squamous Epith Cells 3-5, Urine Bacteria 1+, Hyaline Casts 5-10, Urine Opiates Screen Positive H, Urine Methadone Screen Negative, Ur Barbituates Screen Negative, Ur Phencyclidine Scrn Negative, Ur Amphetamines Screen Negative, U Benzodiazepines Scrn Positive H, Urine Cocaine Screen Negative, U Marijuana (THC) Screen Negative, SARS-CoV-2 (PCR) Not detected, Influenza A Untype (PCR) Not detected, Influenza Type B (PCR) Not detected 09/22/25 16:30 09/22/25 16:30 Response Orders (Tests/Meds): ED MEDICATIONS Generic Name Dose Route Start Last Admin Trade Name Freq PRN Reason Stop Dose Admin Acetaminophen 650 mg 09/22/25 19:03 Acetaminophen 325mg Tab PO 10/22/25 19:02 Q4HP PRN Fever or Mild Pain (1-3) Aspirin 81 mg 09/23/25 09:00 Aspirin Ec 81mg Tablet PO 10/23/25 08:59 DAILY LEON Fluticasone/Umeclidinium/Vilanterol 1 puff 09/23/25 09:00 Fluticasone/Umeclidin/Vilanter 200/62.5/25mcg Inhaler IH 10/23/25 08:59 DAILY LEON Furosemide 40 mg 09/23/25 09:00 Furosemide 40 Mg Tablet PO 10/23/25 08:59 DAILY LEON Insulin Human Lispro 0 unit 09/22/25 21:00 09/22/25 21:42 Humalog 100 Units/Ml 10ml Vial ([facility]) SUBCUT 10/22/25 20:59 2 unit ACHS LEON Administration Protocol Melatonin 5 mg 09/22/25 22:30 Melatonin 5mg Tablet PO 10/22/25 22:29 HS LEON Pantoprazole Sodium 40 mg 09/23/25 09:00 Pantoprazole 40mg Tablet PO 10/23/25 08:59 DAILY LEON Discontinued Medications Generic Name Dose Route Start Last Admin Trade Name Freq PRN Reason Stop Dose Admin Dexamethasone Sodium Phosphate 8 mg 09/22/25 16:04 09/22/25 17:04 Dexamethasone 4mg/Ml 1ml Vial IV 09/22/25 16:05 8 mg ONCE ONE Administration Sodium Chloride 1,000 mls @ 999 mls/hr 09/22/25 16:04 09/22/25 19:14 Sod Chlor 0.9% 1000ml Bag IV 09/22/25 17:04 Infused .Q1H1M ONE Infusion Magnesium Sulfate 2 gm in 50 mls @ 50 mls/hr 09/22/25 16:04 09/22/25 18:11 Magnesium Sulfate 2gm/50ml Premix IV 09/22/25 17:03 Infused ONCE ONE Infusion Ceftriaxone Sodium 2 gm/ 100 mls @ 200 mls/hr 09/22/25 16:09 09/22/25 18:19 Sodium Chloride IV 09/22/25 16:38 Infused ONCE ONE Infusion Azithromycin 500 mg/ Sodium 250 mls @ 250 mls/hr 09/22/25 16:09 09/22/25 19:15 Chloride IV 09/22/25 16:10 Infused ONCE ONE Infusion Potassium Chloride/Water 100 mls @ 100 mls/hr 09/22/25 18:00 09/22/25 21:41 Potassium Chloride 10meq/100ml Ivpb IV 09/22/25 19:59 100 mls/hr Q1H LEON Administration Iopamidol 70 ml 09/22/25 17:33 09/22/25 17:34 Iopamidol-370 (76%);100ml Bottle IV 09/22/25 17:34 70 ml ONCE ONE Administration Naloxone HCl 0.4 mg 09/22/25 17:59 09/22/25 18:04 Naloxone 0.4mg/Ml Vial IV 09/22/25 18:00 Not Given ONCE ONE Naloxone HCl 0.4 mg 09/22/25 18:03 09/22/25 18:03 Naloxone 2mg/2ml Syringe IV 09/22/25 18:04 0.4 mg ONCE ONE Administration Ondansetron HCl 4 mg 09/22/25 18:06 09/22/25 18:20 Ondansetron 4mg/2ml Vial IV 09/22/25 18:07 4 mg ONCE ONE Administration Potassium Chloride 20 meq 09/22/25 17:11 09/22/25 18:01 Potassium Chloride 20meq Tab PO 09/22/25 17:12 Not Given ONCE ONE Sodium Chloride 50 ml 09/22/25 17:33 09/22/25 17:34 0.9 % Sodium Chloride 50 Ml Vial IV 09/22/25 17:34 50 ml ONCE ONE Administration Sodium Chloride 10 ml 09/22/25 17:33 09/22/25 17:34 Sodium Chloride 0.9% 10ml Syr (Rad Only) IV 09/22/25 17:34 10 ml ONCE ONE Administration ORDERS Category Date Time Status CT angio chest PE protocol Stat Cat Scan 09/22/25 16:[address] head/brain wo con Stat Cat Scan 09/22/25 16:01 Completed CBC [Complete Blood Count Auto Diff] Stat Lab 09/22/25 16:30 Completed Comprehensive Metabolic Panel Stat Lab 09/22/25 16:30 Completed Drug Screen,Urine Stat Lab 09/22/25 17:50 Completed Lactate Venous Stat Lab 09/22/25 16:43 Ordered Lipase Stat Lab 09/22/25 16:30 Completed Magnesium Stat Lab 09/22/25 16:30 Completed Rapid PCR Covid and Flu A/B Stat Lab 09/22/25 17:50 Completed Trop I [Troponin I] Stat Lab 09/22/25 16:30 Completed Troponin I Q3H Lab 09/22/25 21:03 Completed Troponin I Q3H Lab 09/22/25 22:30 Received Urinalysis and Microscopic Stat Lab 09/22/25 17:50 Completed Blood Culture Stat Micro 09/22/25 16:43 Received Venous Blood Gas Stat RT 09/22/25 16:30 Completed MDM Narrative Medical Decision Narrative: patient is a 55-year-old female presenting to the emergency department for evaluation of shortness of breath, confusion since last night, hypotension. Patient is hemodynamically stable and nontoxic-appearing upon arrival, afebrile. Differential diagnosis includes sepsis, pneumonia, COPD exacerbation, altered mental status, among others. Workup will be conducted with hematologic labs, specific imaging, provocative tests. Initial inventions include crystalloid bolus, analgesics, antibiotics. Initial workup reviewed by [facility] hematologic labs are remarkable for white cell count at 11.6, potassium is 3.4 which was replaced orally mag 1.1 replaced IV, BUN 23 and creatinine 1.30.VBG results pH 7.37, pCO2 59.2, PaO2 45.7, bicarb 33, CO2 35. Potassium was 3.4, chloride 94 CO2 36 BUN 23 creatinine was 1.3 mag was 1.1 AST was 45.We continue to wait for the rest of the results at this time. Patient continued to be altered and confused and was not waking up. We gave her Narcan to see if this was pain pump related. Patient was given 0.4 of Narcan and patient sat up in the bed and sat she was hot . Then she stated she wanted to get the F out of here. Per chart review her pain pump is receiving morphine 1 mg to 1 mL and bupivacaine 15 mg to 1 mL. On 09/17/2025 she recently had it increased by 10% on her last visit. I have talked to Pato Stephens MD about admission for patient. Patient safe for admission <Kassandra Houser MD - Last Filed: 09/22/25 22:45> Vital Signs Vital Signs: 09/22/25 15:56 09/22/25 16:00 09/22/25 16:00 Temperature 98.6 F 98.6 F Temperature Source Oral Pulse Rate 99 H 102 H Pulse Rate [Right] 102 H Respiratory Rate 20 20 Blood Pressure 125/48 L 125/48 L Blood Pressure [Right Arm] 125/48 L Blood Pressure Mean Blood Pressure Mean [Right Arm] 73 Blood Pressure Source Blood Pressure Position 02 Sat by Pulse Oximetry 95 96 96 Oxygen Delivery Method Nasal Cannula Oxygen Flow Rate (LPM) 2 09/22/25 16:01 09/22/25 17:00 09/22/25 17:52 Temperature Temperature Source Pulse Rate 75 90 82 Pulse Rate [Right] Respiratory Rate 12 Blood Pressure 116/51 L 123/76 117/84 Blood Pressure [Right Arm] Blood Pressure Mean Blood Pressure Mean [Right Arm] Blood Pressure Source Blood Pressure Position 02 Sat by Pulse Oximetry 94 L 96 95 Oxygen Delivery Method Oxygen Flow Rate (LPM) 09/22/25 18:00 09/22/25 19:00 09/22/25 19:01 Temperature Temperature Source Pulse Rate 98 H 75 Pulse Rate [Right] Respiratory Rate 12 17 Blood Pressure 131/70 101/84 L Blood Pressure [Right Arm] Blood Pressure Mean 89 Blood Pressure Mean [Right Arm] Blood Pressure Source Blood Pressure Position 02 Sat by Pulse Oximetry 97 93 L Oxygen Delivery Method Oxygen Flow Rate (LPM) 09/22/25 19:01 09/22/25 19:15 09/22/25 19:30 Temperature Temperature Source Pulse Rate 95 H 71 102 H Pulse Rate [Right] Respiratory Rate 13 Blood Pressure Blood Pressure [Right Arm] Blood Pressure Mean Blood Pressure Mean [Right Arm] Blood Pressure Source Blood Pressure Position 02 Sat by Pulse Oximetry 93 L 94 L Oxygen Delivery Method Oxygen Flow Rate (LPM) 09/22/25 19:33 09/22/25 19:33 09/22/25 19:56 Temperature 98.6 F Temperature Source Oral Pulse Rate 101 H 86 Pulse Rate [Right] Respiratory Rate 13 18 Blood Pressure 126/64 126/64 Blood Pressure [Right Arm] Blood Pressure Mean 68 Blood Pressure Mean [Right Arm] Blood Pressure Source Automatic Cuff Blood Pressure Position Supine 02 Sat by Pulse Oximetry 94 L Oxygen Delivery Method Nasal Cannula Oxygen Flow Rate (LPM) 2 09/22/25 20:00 09/22/25 20:00 09/22/25 20:03 Temperature Temperature Source Pulse Rate 73 100 H Pulse Rate [Right] Respiratory Rate Blood Pressure Blood Pressure [Right Arm] Blood Pressure Mean Blood Pressure Mean [Right Arm] Blood Pressure Source Blood Pressure Position 02 Sat by Pulse Oximetry 92 L 92 L Oxygen Delivery Method Room Air Oxygen Flow Rate (LPM) 09/22/25 20:09 09/22/25 20:09 09/22/25 20:15 Temperature Temperature Source Pulse Rate 102 H 72 Pulse Rate [Right] Respiratory Rate Blood Pressure 120/68 Blood Pressure [Right Arm] Blood Pressure Mean 81 Blood Pressure Mean [Right Arm] Blood Pressure Source Blood Pressure Position 02 Sat by Pulse Oximetry 90 L 94 L Oxygen Delivery Method Oxygen Flow Rate (LPM) 09/22/25 20:30 09/22/25 20:31 09/22/25 20:32 Temperature Temperature Source Pulse Rate 65 86 Pulse Rate [Right] Respiratory Rate Blood Pressure 117/81 Blood Pressure [Right Arm] Blood Pressure Mean 98 Blood Pressure Mean [Right Arm] Blood Pressure Source Blood Pressure Position 02 Sat by Pulse Oximetry 91 L 91 L Oxygen Delivery Method Oxygen Flow Rate (LPM) Lab Data Labs: Lab Results 09/22/25 16:30: WBC 11.6 H, RBC 3.85 L, Hgb 10.7 L, Hct 33.0 L, MCV 85.7, MCH 27.8, MCHC 32.4, RDW 13.4, Plt Count 240, MPV 12.2 H, Neut % (Auto) 65.0, Lymph % (Auto) 17.6, [place] % (Auto) 12.0 H, Eos % (Auto) 3.2, Baso % (Auto) 0.7, Neut # (Auto) 7.6, Lymph # (Auto) 2.0, [place] # (Auto) 1.4 H, Eos # (Auto) 0.4, Baso # (Auto) 0.1, VBG pH 7.37, VBG pCO2 59.2 H, VBG pO2 45.7 H, VBG HCO3 33.7 H, VBG Total CO2 35.5 H, VBG O2 Saturation 78.3 H, VBG Base Excess 8.4 H, VBG Lactic Acid 1.8, Sodium 136, Potassium 3.4 L, Chloride 94 L, Carbon Dioxide 36 H, Anion Gap 9.4, BUN 23 H, Creatinine 1.30 H, Estimated Creat Clear 57, Estimated GFR 42 L, Est GFR ( Amer) 51 L, Glucose 99, Calcium 8.4, Magnesium 1.1 L, Total Bilirubin 0.5, AST 45 H, ALT 23, Alkaline Phosphatase 99, Troponin I < 0.01, Total Protein 6.4, Albumin 2.9 L, Globulin 3.5 H, Albumin/Globulin Ratio 0.8 L, Lipase 28 09/22/25 17:50: Urine Color Yellow, Urine Appearance Clear, Urine pH 6.0, Ur Specific [place] 1.020, Urine Protein Negative, Urine Glucose (UA) Negative, Urine Ketones Negative, Urine Blood Negative, Urine Nitrate Negative, Urine Bilirubin Negative, Urine Urobilinogen 0.2, Ur Leukocyte Esterase Negative, Urine RBC None, Urine WBC None, Ur Squamous Epith Cells 3-5, Urine Bacteria 1+, Hyaline Casts 5-10, Urine Opiates Screen Positive H, Urine Methadone Screen Negative, Ur Barbituates Screen Negative, Ur Phencyclidine Scrn Negative, Ur Amphetamines Screen Negative, U Benzodiazepines Scrn Positive H, Urine Cocaine Screen Negative, U Marijuana (THC) Screen Negative, SARS-CoV-2 (PCR) Not detected, Influenza A Untype (PCR) Not detected, Influenza Type B (PCR) Not detected Response Orders (Tests/Meds): ED MEDICATIONS Generic Name Dose Route Start Last Admin Trade Name Freq PRN Reason Stop Dose Admin Acetaminophen 650 mg 09/22/25 19:03 Acetaminophen 325mg Tab PO 10/22/25 19:02 Q4HP PRN Fever or Mild Pain (1-3) Aspirin 81 mg 09/23/25 09:00 Aspirin Ec 81mg Tablet PO 10/23/25 08:59 DAILY LEON Fluticasone/Umeclidinium/Vilanterol 1 puff 09/23/25 09:00 Fluticasone/Umeclidin/Vilanter 200/62.5/25mcg Inhaler IH 10/23/25 08:59 DAILY LEON Furosemide 40 mg 09/23/25 09:00 Furosemide 40 Mg Tablet PO 10/23/25 08:59 DAILY LEON Insulin Human Lispro 0 unit 09/22/25 21:00 09/22/25 21:42 Humalog 100 Units/Ml 10ml Vial (Ssi) SUBCUT 10/22/25 20:59 2 unit ACHS LEON Administration Protocol Melatonin 5 mg 09/22/25 22:30 Melatonin 5mg Tablet PO 10/22/25 22:29 HS LEON Pantoprazole Sodium 40 mg 09/23/25 09:00 Pantoprazole 40mg Tablet PO 10/23/25 08:59 DAILY LEON Discontinued Medications Generic Name Dose Route Start Last Admin Trade Name Freq PRN Reason Stop Dose Admin Dexamethasone Sodium Phosphate 8 mg 09/22/25 16:04 09/22/25 17:04 Dexamethasone 4mg/Ml 1ml Vial IV 09/22/25 16:05 8 mg ONCE ONE Administration Sodium Chloride 1,000 mls @ 999 mls/hr 09/22/25 16:04 09/22/25 19:14 Sod Chlor 0.9% 1000ml Bag IV 09/22/25 17:04 Infused .Q1H1M ONE Infusion Magnesium Sulfate 2 gm in 50 mls @ 50 mls/hr 09/22/25 16:04 09/22/25 18:11 Magnesium Sulfate 2gm/50ml Premix IV 09/22/25 17:03 Infused ONCE ONE Infusion Ceftriaxone Sodium 2 gm/ 100 mls @ 200 mls/hr 09/22/25 16:09 09/22/25 18:19 Sodium Chloride IV 09/22/25 16:38 Infused ONCE ONE Infusion Azithromycin 500 mg/ Sodium 250 mls @ 250 mls/hr 09/22/25 16:09 09/22/25 19:15 Chloride IV 09/22/25 16:10 Infused ONCE ONE Infusion Potassium Chloride/Water 100 mls @ 100 mls/hr 09/22/25 18:00 09/22/25 21:41 Potassium Chloride 10meq/100ml Ivpb IV 09/22/25 19:59 100 mls/hr Q1H LEON Administration Iopamidol 70 ml 09/22/25 17:33 09/22/25 17:34 Iopamidol-370 (76%);100ml Bottle IV 09/22/25 17:34 70 ml ONCE ONE Administration Naloxone HCl 0.4 mg 09/22/25 17:59 09/22/25 18:04 Naloxone 0.4mg/Ml Vial IV 09/22/25 18:00 Not Given ONCE ONE Naloxone HCl 0.4 mg 09/22/25 18:03 09/22/25 18:03 Naloxone 2mg/2ml Syringe IV 09/22/25 18:04 0.4 mg ONCE ONE Administration Ondansetron HCl 4 mg 09/22/25 18:06 09/22/25 18:20 Ondansetron 4mg/2ml Vial IV 09/22/25 18:07 4 mg ONCE ONE Administration Potassium Chloride 20 meq 09/22/25 17:11 09/22/25 18:01 Potassium Chloride 20meq Tab PO 09/22/25 17:12 Not Given ONCE ONE Sodium Chloride 50 ml 09/22/25 17:33 09/22/25 17:34 0.9 % Sodium Chloride 50 Ml Vial IV 09/22/25 17:34 50 ml ONCE ONE Administration Sodium Chloride 10 ml 09/22/25 17:33 09/22/25 17:34 Sodium Chloride 0.9% 10ml Syr (Rad Only) IV 09/22/25 17:34 10 ml ONCE ONE Administration ORDERS Category Date Time Status CT angio chest PE protocol Stat Cat Scan 09/22/25 16:[address] head/brain wo con Stat Cat Scan 09/22/25 16:01 Completed CBC [Complete Blood Count Auto Diff] Stat Lab 09/22/25 16:30 Completed Comprehensive Metabolic Panel Stat Lab 09/22/25 16:30 Completed Drug Screen,Urine Stat Lab 09/22/25 17:50 Completed Lactate Venous Stat Lab 09/22/25 16:43 Ordered Lipase Stat Lab 09/22/25 16:30 Completed Magnesium Stat Lab 09/22/25 16:30 Completed Rapid PCR Covid and Flu A/B Stat Lab 09/22/25 17:50 Completed Trop I [Troponin I] Stat Lab 09/22/25 16:30 Completed Troponin I Q3H Lab 09/22/25 21:03 Completed Troponin I Q3H Lab 09/22/25 22:30 Received Urinalysis and Microscopic Stat Lab 09/22/25 17:50 Completed Blood Culture Stat Micro 09/22/25 16:43 Received Venous Blood Gas Stat RT 09/22/25 16:30 Completed
--- NOTE | 2025-09-22 16:28 | ECG_ITS ---
APPROVED REPORT Exam: Resting ECG HR:98 bpm ECG Measurements Heart Rate 98 AXES ID 152 P 59 QRSd 82 QRS 41 QT 378 T 20 QTc 433 Conclusion SINUS RHYTHM WITH FREQUENT VENTRICULAR PREMATURE COMPLEXES LOW QRS VOLTAGE IN PRECORDIAL LEADS [QRS DEFLECTION < 1.0 mV IN CHEST LEADS] ST DEVIATION AND MODERATE T-WAVE ABNORMALITY, CONSIDER INFERIOR ISCHEMIA [-0.1+ mV T-WAVE IN II/aVF] ABNORMAL ECG UNCONFIRMED REPORT Electronically signed by : Solis Houser, 09/22/2025 22:53:02
[2025-09-22 16:37] LABS: Hematocrit 33.0 % (37.0-47.0); Hemoglobin 10.7 g/dL (12.2-16.2); Immature Granulocytes % 1.5 %; Mean Corpuscular HGB Conc 32.4 g/dL (31.8-35.4); Mean Corpuscular Hemoglobin 27.8 pg (27.0-31.2); Mean Corpuscular Volume 85.7 fl (81-99); Nucleated Red Blood Cells % 0 %; Platelet Count 240 K/mm3 (142-424); Red Blood Count 3.85 M/mm3 (4.20-5.40); Red Cell Distribution Width-SD 41.6 fL; White Blood Count 11.6 K/mm3 (4.8-10.8)
[2025-09-22 16:41] LABS: Lactate Venous 1.8 mmol/L (0.4-2.0); VBG HCO3 33.7 mmol/L (23-30); VBG PH 7.37 mmol/L (7.31-7.41); VBG PO2 45.7 mmol/L (28-40)
[2025-09-22 16:48] LABS: VBG PCO2 59.2 mmol/L (35-51)
[2025-09-22 16:54] LABS: Albumin Level 2.9 g/dl (3.5-5.0)
[2025-09-22 16:55] LABS: Chloride 94 mmol/L (98-107); Potassium 3.4 mmoL/L (3.5-5.1); Sodium 136 mmol/L (136-145)
[2025-09-22 16:57] LABS: Alanine Aminotransferase 23 U/L (12-78); Anion Gap 9.4 mEq/L (5-15); Aspartate Amino Transferase 45 U/L (14-36); Blood Urea Nitrogen 23 mg/dl (7-17); Carbon Dioxide 36 mmol/L (22.0-30.0); Creatinine Clearance Estimated 57 mL/min (50-200); Creatinine,Serum 1.30 mg/dl (0.52-1.04); Estimated Glomerular Filt Rate 42 ml/min (>60); GFR (African American) 51 ML/MIN (>60)
[2025-09-22 16:58] LABS: Albumin/Globulin Ratio 0.8 (1.1-1.8); Alkaline Phosphatase 99 U/L (38-126); Bilirubin,Total 0.5 mg/dl (0.2-1.3); Calcium 8.4 mg/dl (8.4-10.2); Globulin 3.5 g/dL (1.3-3.2); Glucose 99 mg/dl (74-100); Lipase 28 U/L (23-300); Magnesium 1.1 mg/dl (1.6-2.3); Total Protein,Serum 6.4 g/dl (6.3-8.2)
[2025-09-22] MEDS: 0.9 % SODIUM CHLORIDE 1000ML 1,000 ML 999 ML IV (17:04)
[2025-09-22] MEDS: DEXAMETHASONE 4MG/ML 1ML VIAL 8 MG IV (17:04)
[2025-09-22] MEDS: MAGNESIUM SULFATE IN WATER 2 GM/50 ML PIGGYBACK IV (17:06)
[2025-09-22] MEDS: 0.9 % SODIUM CHLORIDE 50 ML VIAL IV (17:34)
[2025-09-22] MEDS: IOPAMIDOL-370 (76%);100ML BOTTLE 70 ML IV (17:34)
[2025-09-22] MEDS: SODIUM CHLORIDE 0.9% 10ML SYR (RAD ONLY) 10 ML IV (17:34)
[2025-09-22] MEDS: AZITHROMYCIN 500 MG in 0.9 % SODIUM CHLORIDE 250 ML 250 MG IV (17:54)
[2025-09-22 18:01] LABS: Troponin I < 0.01 ng/ml (0.00-0.034)
[2025-09-22] MEDS: NALOXONE 2MG/2ML SYRINGE 0.4 MG IV (18:03)
[2025-09-22 18:13] LABS: Coronavirus 19, PCR Not Detected (NotDetected); Influenza A, PCR Not Detected (NotDetected); Influenza B, PCR Not Detected (NotDetected)
[2025-09-22 18:15] LABS: Microscopic, Urine URINE MICROSCOPIC (MICROSCOPIC)
[2025-09-22] MEDS: ONDANSETRON 4MG/2ML VIAL 4 MG IV (18:20)
[2025-09-22 18:25] LABS: Bilirubin,Urine Negative (Negative); Color,Urine YELLOW (Yellow); Glucose,Urine (UA) Negative (Negative); Ketones,Urine Negative (Negative); Leukocyte Esterase,Urine Negative (Negative); PH,Urine 6.0 (5.0-8.5); Protein,Urine Negative (Negative); Specific Gravity, Urine 1.020 (1.005-1.030); Urobilinogen,Urine 0.2 EU/dl (0.2)
--- NOTE | 2025-09-22 18:30 | PC.NURSE ---
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
[2025-09-22 19:03] LABS: Bacteria,Urine 1+ /lpf
--- NOTE | 2025-09-22 19:10 | EXP.HP ---
History of Present Illness *Admission Date: 09/22/25 *Reason for visit:: Altered mentation *History of present illness: Coretta Cuevas is a 55-year-old female with chronic lumbar degenerative disc disease (with lumbar morphine pump), COPD on 2 L, HFpEF, type 2 diabetes with peripheral neuropathy, anxiety/depression who presents from home due to concern of altered mentation. Per mother at bedside, patient has had worsening confusion over the past 2 days. She was apparently found on her front porch without wearing oxygen in her underwear which is atypical for her. On arrival, patient was somewhat subdued. No respiratory compromise. Chart review reveals her morphine pain pump dose was increased by 10% 5 days ago 09/17/2025. Her blood pressures were also slightly hypotensive on arrival. She was given IV Narcan 0.4 mg which made her much more alert and oriented, but shortly went into acute moderate opioid withdrawal. CBC, CMP relatively unremarkable other than magnesium 1.1. UA unremarkable. Given his presentation, ED provider discussed case with me and agreed to evaluate the patient. Findings the ED did reach out to pain management to inquire whether morphine pain pump dosing can be decreased. Ines Christianson with pain management spoke with Dr. Sethi who advised 50% decrease in pain pump, and it will be done later tonight. I agreed to admit patient for further evaluation management. [facility] Disclaimer: The information contained in this section may have been updated after the patient was seen, as this information can be updated by other users. 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 current occupational exposures/hazards: No caffeine: Yes Other Medical History Have you received the Flu Vaccine for this season: No Have you received the Pneumonia Vaccine: No Meds Home Medications and Allergies Home Medications ?Medication ?Instructions ?Recorded ?Confirmed ?Type montelukast 10 mg tablet 10 mg PO HS 05/12/21 09/22/25 History pantoprazole 40 mg tablet,delayed 40 mg PO DAILY 07/07/21 09/22/25 History release aspirin 81 mg tablet,delayed 81 mg PO DAILY 03/23/22 09/22/25 History release metformin 500 mg tablet 500 mg PO DAILY 08/03/22 09/22/25 History pravastatin 40 mg tablet 40 mg PO DAILY 08/21/22 09/22/25 History fluticasone fur. 200 mcg-umeclid 1 inh inhalation DAILY 01/07/24 09/22/25 History 62.5 mcg-vilant 25 mcg inhalat.powder (Trelegy Ellipta) pregabalin 150 mg capsule (Lyrica) 150 mg PO TID #90 caps 08/28/25 09/22/25 Rx Held on 09/14/25. Instructions: Would recommend decreasing dose to 100 mg 3 times a day due to oversedation during admission. Further discussion with PCP buspirone 15 mg tablet 15 mg PO BID 09/02/25 09/22/25 History diazepam 5 mg tablet 5 mg PO DAILY 09/02/25 09/22/25 History duloxetine 60 mg capsule,delayed 60 mg PO DAILY 09/02/25 09/22/25 History release estradiol 0.01% (0.1 mg/gram) 2 g vaginal DAILY 09/02/25 09/22/25 History vaginal cream fluticasone propionate 50 2 spray intranasal DAILY 09/02/25 09/22/25 History mcg/actuation nasal spray,suspension paroxetine HCl 10 mg tablet 10 mg PO HS 09/02/25 09/22/25 History zolpidem 10 mg tablet 10 mg PO HS 09/02/25 09/22/25 History Held on 09/14/25. Instructions: Causes oversedation. Would not recommend resuming baclofen 10 mg tablet 10 mg PO TID 09/09/25 09/22/25 History levofloxacin 750 mg tablet 750 mg PO DAILY #1 tab 10/20/25 10/28/25 Rx furosemide 40 mg tablet (Lasix) 40 mg PO DAILY #30 tabs 09/17/25 09/22/25 Rx New Prescriptions to Start Prescriptions: Allergies Allergy/AdvReac Type Severity Reaction Status Date / Time Sulfa (Sulfonamide Allergy Rash Verified 09/17/25 11:42 Antibiotics) Exam Data for Last 24 hours Vital signs and Labs for Last 24 Hours: Temp Pulse Resp BP Pulse Ox O2 Del Method O2 Flow Rate 98.6 F 98 H 12 131/70 97 Nasal Cannula 2 09/22/25 16:00 09/22/25 18:00 09/22/25 18:00 09/22/25 18:00 09/22/25 18:00 09/22/25 16:00 09/22/25 16:00 Laboratory Results - last 24 hr 09/22/25 16:30: WBC 11.6 H, RBC 3.85 L, Hgb 10.7 L, Hct 33.0 L, MCV 85.7, MCH 27.8, MCHC 32.4, RDW 13.4, Plt Count 240, MPV 12.2 H, Neut % (Auto) 65.0, Lymph % (Auto) 17.6, [place] % (Auto) 12.0 H, Eos % (Auto) 3.2, Baso % (Auto) 0.7, Neut # (Auto) 7.6, Lymph # (Auto) 2.0, [place] # (Auto) 1.4 H, Eos # (Auto) 0.4, Baso # (Auto) 0.1, VBG pH 7.37, VBG pCO2 59.2 H, VBG pO2 45.7 H, VBG HCO3 33.7 H, VBG Total CO2 35.5 H, VBG O2 Saturation 78.3 H, VBG Base Excess 8.4 H, VBG Lactic Acid 1.8, Sodium 136, Potassium 3.4 L, Chloride 94 L, Carbon Dioxide 36 H, Anion Gap 9.4, BUN 23 H, Creatinine 1.30 H, Estimated Creat Clear 57, Estimated GFR 42 L, Est GFR ( Amer) 51 L, Glucose 99, Calcium 8.4, Magnesium 1.1 L, Total Bilirubin 0.5, AST 45 H, ALT 23, Alkaline Phosphatase 99, Troponin I < 0.01, Total Protein 6.4, Albumin 2.9 L, Globulin 3.5 H, Albumin/Globulin Ratio 0.8 L, Lipase 28 09/22/25 17:50: Urine Color Yellow, Urine Appearance Clear, Urine pH 6.0, Ur Specific [place] 1.020, Urine Protein Negative, Urine Glucose (UA) Negative, Urine Ketones Negative, Urine Blood Negative, Urine Nitrate Negative, Urine Bilirubin Negative, Urine Urobilinogen 0.2, Ur Leukocyte Esterase Negative, Urine RBC None, Urine WBC None, Ur Squamous Epith Cells 3-5, Urine Bacteria 1+, Hyaline Casts 5-10, SARS-CoV-2 (PCR) Not detected, Influenza A Untype (PCR) Not detected, Influenza Type B (PCR) Not detected I & O for Last 24 hours: Intake & Output 09/19/25 09/20/25 09/21/25 09/22/25 23:59 23:59 23:59 23:59 Intake Total 150 / 150 Balance 150 / 150 Weight 74.843 kg Constitutional Constitutional: mild distress, obese and chronically ill appearing Comments: Agitated. *Routine HEENT Exam Head: Present normocephalic Eye: Present EOMI and PERRL ENT: Present mucous membranes moist *Routine Neck Exam Neck: Present supple; Absent lymphadenopathy *Routine Respiratory Exam Respiratory: Present CTA bilaterally *Routine Cardiovascular Exam Cardiovascular: Present RRR *Routine Abdominal Exam Abdominal: Present soft and normoactive bowel sounds; Absent tenderness *Routine Rectal Exam Rectal:: deferred *Routine Genitalia Exam Genitalia:: deferred *Routine Extremities Exam Extremities: Absent cyanosis, clubbing or edema *Routine Skin Exam Skin: Present warm; Absent rash *Routine Neurological Exam Neurological: Present alert and oriented X3 Assessment and Plan *Assessment and plan (1) Accidental overdose of non-opiate analgesics: Status: Acute Category: Medical Code(s): T39.91XA - Poisoning by unspecified nonopioid analgesic, antipyretic and antirheumatic, accidental (unintentional), initial encounter Plan Coretta Cuevas is a 55-year-old female with chronic lumbar degenerative disc disease (with lumbar morphine pump), COPD on 2 L, HFpEF, type 2 diabetes with peripheral neuropathy, anxiety/depression who presents from home due to concern of altered mentation. Per mother at bedside, patient has had worsening confusion over the past 2 days. She was apparently found on her front porch without wearing oxygen in her underwear which is atypical for her. On arrival, patient was somewhat subdued. No respiratory compromise. Chart review reveals her morphine pain pump dose was increased by 10% 5 days ago 09/17/2025. Her blood pressures were also slightly hypotensive on arrival. She was given IV Narcan 0.4 mg which made her much more alert and oriented, but shortly went into acute moderate opioid withdrawal. CBC, CMP relatively unremarkable other than magnesium 1.1. UA unremarkable. Given his presentation, ED provider discussed case with me and agreed to evaluate the patient. Findings the ED did reach out to pain management to inquire whether morphine pain pump dosing can be decreased. Ines Christianson with pain management spoke with Dr. Sethi who advised 50% decrease in pain pump, and it will be done later tonight. I agreed to admit patient for further evaluation management. #Acute toxic metabolic encephalopathy #Unintentional opioid overdose #Lumbar degenerative disc disease/pain ? Patient presented with confusion, weakness, encephalopathy and found to have opiate overdose in the setting of recent lumbar morphine pain pump dose increase due to low back pain. No respiratory compromise. ? Low-dose Narcan improved patient's encephalopathy, but has had transient acute opioid withdrawal. ? Pain management will decrease pain pump dose by 50% tonight, and reevaluate in the morning. ? Continuous cardiac telemetry. #COPD on 2 L ? Compensated. Resume home Trelegy. #HFpEF ? Currently euvolemic. Continue home Lasix 40 mg. #Type 2 diabetes #Peripheral neuropathy ? Hemoglobin A1c 6.6%. Hold off on ACHS for now. ? Hold home pregabalin until encephalopathy improves. #Anxiety/depression ? Hold home meds until encephalopathy improves. #GERD ? Continue home PPI. Full code DVT prophylaxis: Lovenox 40 mg
--- NOTE | 2025-09-22 19:36 | PC.NURSE ---
Attempted to call report up to [facility]. No answer
--- NOTE | 2025-09-22 19:50 | PC.NURSE ---
Report called to [facility] [place].
--- NOTE | 2025-09-22 20:42 | PC.NURSE ---
Patient arrived to the floor via stretcher @ 2041
--- NOTE | 2025-09-22 20:50 | PC.NURSE ---
contacted per ER provider Vladimir regarding pt pain pump and if it could be turned off or adjusted r/t pt initial presentation of mental status and response to Narcan. Contacted Dr. Sethi via phone, notified him of pt ER visit and now admission and pt response to Narcan. Dr. Sethi gave verbal order to turn pts pump dose down by 50%. Order repeated and verified. Dr. Sethi stated to have pt seen by JULIANNE Nuno in the morning to reassess pt. Contacted hospitalist provider Dr. Stephens who is admitted pt, notified him of conversation with Dr. Sethi and his order to decrease pts pain pump dose by 50%. He agreed with this plan, also notified him pt will be seen in the morning by JULIANNE Nuno. When arrived in pts ER room, explained to pt that I have spoken with the admitting doctor and Dr. Sethi who are requesting that her pain pump be decreased by 50%. Pt was concerned about increased pain related to the decreased dose and was hesitant to allow the decrease. Explained to pt to notify staff if she has increased pain. Explained to pt that the per Dr. Sethi her pain pump dosage may be to strong for her at this time r/t current illness and that is was making her not be alert and that the dose of Narcan helped her to wake up. Pt verbalized understanding. Pt did consent to having her pain pump decreased after explanation of why I was decreasing the dose. Pt is alert, oriented to person and place. Pt mother at bedside who verbalized understanding of decrease of pain pump dosage. Dosage decrease sent to Dr. Sethi, who confirmed that decrease was correct.
[2025-09-22 21:18] LABS: Amphetamine/Metha Screen,Urine Negative ng/ml (<1000)
[2025-09-22 21:33] LABS: Troponin I < 0.01 ng/ml (0.00-0.034)
[2025-09-22 21:36] LABS: Barbiturates Screen,Urine Negative ng/ml (<200); Benzodiazepines Screen,Urine Positive ng/ml (<200); Methadone Screen,Urine Negative ng/ml (<300); Opiate Screen,Urine Positive ng/ml (<300); Phencyclidine Screen,Urine Negative ng/ml (<25)
[2025-09-22] MEDS: humaLOG 100 UNITS/ML 10ML VIAL (SSI) SUBCUT (21:42)
[2025-09-22 23:08] LABS: Troponin I < 0.01 ng/ml (0.00-0.034)
[2025-09-22] MEDS: MELATONIN 5MG TABLET 5 MG PO (23:51)
[2025-09-22] MEDS: ACETAMINOPHEN 325MG TAB 650 MG PO (23:51)
[2025-09-23] VITALS: BP 111/67; PULSE 60; RESP 16; TEMP 36.9; O2SAT 95
[2025-09-23 04:00] VITALS: BP 127/76; PULSE 88; RESP 16; TEMP 36.9; O2SAT 96; BMI 33.0
[2025-09-23 06:24] LABS: POC Glucose,Bedside 136 gm/dL (70-110)
--- NOTE | 2025-09-23 07:33 | HMH.PHAINT1 ---
Pharmacy Intervention Comments: home medication list verified using list from outpatient pharmacy and most recent discharge from this facility
[2025-09-23 07:50] VITALS: BP 131/81; PULSE 84; RESP 18; TEMP 36.6; O2SAT 97
[2025-09-23] MEDS: FUROSEMIDE 40 MG TABLET PO ×2 (08:21→12:51)
[2025-09-23] MEDS: ASPIRIN EC 81MG TABLET 81 MG PO (08:21)
[2025-09-23] MEDS: ACETAMINOPHEN 325MG TAB 650 MG PO ×2 (08:22→12:52)
[2025-09-23 08:49] LABS: Hematocrit 33.9 % (37.0-47.0); Hemoglobin 10.8 g/dL (12.2-16.2); Immature Granulocytes % 0.9 %; Mean Corpuscular HGB Conc 31.9 g/dL (31.8-35.4); Mean Corpuscular Hemoglobin 27.7 pg (27.0-31.2); Mean Corpuscular Volume 86.9 fl (81-99); Nucleated Red Blood Cells % 0 %; Platelet Count 234 K/mm3 (142-424); Red Blood Count 3.90 M/mm3 (4.20-5.40); Red Cell Distribution Width-SD 42.7 fL; White Blood Count 9.5 K/mm3 (4.8-10.8)
[2025-09-23 09:00] LABS: Alanine Aminotransferase 24 U/L (12-78); Albumin Level 3.2 g/dl (3.5-5.0); Albumin/Globulin Ratio 0.9 (1.1-1.8); Alkaline Phosphatase 96 U/L (38-126); Anion Gap 10.9 mEq/L (5-15); Aspartate Amino Transferase 35 U/L (14-36); Bilirubin,Total 0.4 mg/dl (0.2-1.3); Blood Urea Nitrogen 16 mg/dl (7-17); Calcium 8.9 mg/dl (8.4-10.2); Carbon Dioxide 31 mmol/L (22.0-30.0); Chloride 97 mmol/L (98-107); Creatinine Clearance Estimated 101 mL/min (50-200); Creatinine,Serum 0.80 mg/dl (0.52-1.04); Estimated Glomerular Filt Rate 74 ml/min (>60); GFR (African American) 90 ML/MIN (>60); Globulin 3.7 g/dL (1.3-3.2); Glucose 131 mg/dl (74-100); Magnesium 1.6 mg/dl (1.6-2.3); Potassium 3.9 mmoL/L (3.5-5.1); Sodium 135 mmol/L (136-145); Total Protein,Serum 6.9 g/dl (6.3-8.2)
--- NOTE | 2025-09-23 09:15 | SW/DCPLANNER ---
Addendum entered by Stella Rodriguez 09/23/25 11:58: I have updated patient's mother that the plan is for patient to return home today and she is agreeable w/ this plan. Patient will continue outpatient PT services. Original Note: Per PT patient can return home and continue outpatient therapy services. Per patient's mother patient does have an outpatient PT appointment in [place] on 09/28.
[2025-09-23] MEDS: FLUTICASONE/UMECLIDIN/VILANTER 200/62.5/25MCG INHALER 1 PUFF IH (09:55)
[2025-09-23] MEDS: SODIUM CHLORIDE 3% 15ML NEB 3 ML IH (09:56)
[2025-09-23 09:58] VITALS: PULSE 80; RESP 18
--- NOTE | 2025-09-23 10:03 | HMH.PTEV ---
Physical Therapy Evaluation Rehab PT IP Evaluation Start: 09/22/25 19:04 Freq: ONCE Status: Active Protocol: Document 09/23/25 09:56 JESU (Rec: 09/23/25 10:03 JESU [id number]) Subjective/History History History Per H&P: Coretta Cuevas is a 55-year-old female with chronic lumbar degenerative disc disease (with lumbar morphine pump), COPD on 2 L, HFpEF, type 2 diabetes with peripheral neuropathy, anxiety/depression who presents from home due to concern of altered mentation. Per mother at bedside, patient has had worsening confusion over the past 2 days. She was apparently found on her front porch without wearing oxygen in her underwear which is atypical for her. On arrival, patient was somewhat subdued. No respiratory compromise. Chart review reveals her morphine pain pump dose was increased by 10% 5 days ago 09/17/2025. Her blood pressures were also slightly hypotensive on arrival. She was given IV Narcan 0.4 mg which made her much more alert and oriented, but shortly went into acute moderate opioid withdrawal. CBC, CMP relatively unremarkable other than magnesium 1.1. UA unremarkable . Given his presentation, ED provider discussed case with me and agreed to evaluate the patient. Findings the ED did reach out to pain management to inquire whether morphine pain pump dosing can be decreased. Ines Christianson with pain management spoke with Dr. Sethi who advised 50% decrease in pain pump, and it will be done later tonight. I agreed to admit patient for further evaluation management. Subjective Subjective Pt reports she lives in a single-story home with care as needed provided by her mother. Pt owns a RW but admits she is non-compliant with using her AD. Pt does report 3 falls since last hospital d/c when not using her RW. [facility] How much help from another person do you currently need... Turning from your None back to your side while in a flat bed without using bedrails? Moving from lying on None back to sitting on the side of a flat bed without using bedrails? Moving to and from a None bed to a chair ( including a wheelchair)? Standing up from a None chair using your arms? (e.g., wheelchair, bedside chair) Walking in hospital None room? Climbing 3-5 steps A little with a railing? Mobility Score 23 Mobility Level [place] Mobility 7 Walk 25 feet or more Mobility Calculator Rehab PT IP Eval Objective Appearance Patient Behavior Appropriate,Cooperative Patient Orientation Person,Situation Difficulty following mild instructions Speech Pattern Clear Ambulation Patient Able to Yes Ambulate Ambulation Observation IP General Gait Wide Based Gait Pattern Observation Ambulation Distance 28 (feet) Ambulation Assistive Rolling Walker Device Ambulation Ability Supervision/Stand by Balance Ability to Arise Able, uses arms to help Sitting Balance Steady, safe Standing Balance Steady, wide stance Dynamic Sitting Good Balance Ability Dynamic Standing Good Balance Ability Transfers Bed Transfer Ability Supervision/Stand by Sit to Stand Bed Supervision/Stand by Transfer Ability Rehab PT IP prob,goals,plan Problems Date of Evaluation: 09/23/25 Rehab Potential Rehab Potential Innapropriate for Skilled Therapy Discharge Plan PT Discharge Plan Pt appears to be at her baseline with mobility. Pt able to demo household level ambulation with RW and good dynamic standing balance. Pt most appropriate to d/c home when deemed medically necessary d/t current level of mobility, home set-up, and family support. PT educated pt on using her RW AAT d/t impaired balance and hx of falls. Pt not appropriate for skilled acute care PT at this time d/t pt?s mobility being at baseline. Eval Complexity Eval Charge Codes 77375 - Moderate Complexity PHYSICIAN CERTIFICATION: I certify the specified therapy services for Coretta Moctezuma are required, authorized, and reviewed every 30 days.
--- NOTE | 2025-09-23 10:32 | HMH.OTEV ---
OT Evaluation Rehab OT IP Evaluation Start: 09/22/25 19:04 Freq: ONCE Status: Active Protocol: Document 09/23/25 10:24 RICCO (Rec: 09/23/25 10:31 RICCO [id number]) Rehab OT IP Assessment Subjective History Coretta Cuevas is a 55-year-old female with chronic lumbar degenerative disc disease (with lumbar morphine pump), COPD on 2 L, HFpEF, type 2 diabetes with peripheral neuropathy, anxiety/depression who presents from home due to concern of altered mentation. Per mother at bedside, patient has had worsening confusion over the past 2 days. She was apparently found on her front porch without wearing oxygen in her underwear which is atypical for her. On arrival, patient was somewhat subdued. No respiratory compromise. Chart review reveals her morphine pain pump dose was increased by 10% 5 days ago 09/17/2025. Her blood pressures were also slightly hypotensive on arrival. She was given IV Narcan 0.4 mg which made her much more alert and oriented, but shortly went into acute moderate opioid withdrawal. CBC, CMP relatively unremarkable other than magnesium 1.1. UA unremarkable . Given his presentation, ED provider discussed case with me and agreed to evaluate the patient. Findings the ED did reach out to pain management to inquire whether morphine pain pump dosing can be decreased. Ines Christianson with pain management spoke with Dr. Sethi who advised 50% decrease in pain pump, and it will be done later tonight. I agreed to admit patient for further evaluation management. Patient lives at home with mother in 1 story home with no MARLEE. Patient stated to have RW for transfers and fx' l mobility. However patient does not use RW at all times. Subjective Patient required max encouragement this date to participate in skilled OT initial evaluation. Patient completed bed mobility from supine->sit @ EOB independently. Patient completed STS with usage of RW independently. OT instructed patient to complete fx'l mobility within the room. However patient stated, I'm not doing it. I don't feel like it. OT educated Patient re: reasoning to complete fx'l mobility to assess safety awareness. Patient stated, I'm not doing it. Give me my call light. Patient completed bed mobility from EOB->supine independently. OT consulted with patient's charge nurse re: Patient's participation with skilled OT initial evaluation. Nursing stated that patient's participation has been limited since admission. Patient continues to request pain medication even after a few mins of receiving a dose. Objective Patient Orientation Person,Place,Name,Age Right Upper WFL Extremity Gross ROM Left Upper Extremity WFL Gross ROM Bed Mobility bed mobility - supine/sit Assist Level Independent Transfer Training Sit/Stand Transfer Assist Level Independent Rehab OT IP prob,goals,plan Problems Date of Evaluation: 09/23/25 Rehab Potential Rehab Potential Innapropriate for Skilled Therapy Discharge Plan OT Discharge Plan Patient is unmotivated to participate in skilled OT services even with max encouragement. Patient is at baseline with bed mobility, transfers and LB drsg and able to use/request RW for STS. Recommend patient to return home under mother's care. Eval Complexity Eval Charge Codes 52584 - Low Complexity PHYSICIAN CERTIFICATION: I certify the specified therapy services for Coretta Moctezuma are required, authorized, and reviewed every 30 days.
--- NOTE | 2025-09-23 11:22 | PC.NURSE ---
spoke with pain management clinic on pt, she is scheduled for appt 09/24 at 0830. OK to DC from Pain management clinic
[2025-09-23 11:52] VITALS: BP 113/69; PULSE 83; RESP 16; O2SAT 95
[2025-09-23 12:19] LABS: POC Glucose,Bedside 108 gm/dL (70-110)
--- NOTE | 2025-09-23 12:28 | EXP.DC.SUM ---
General Admission date:: 09/22/25 HPI HPI HPI: Coretta Cuevas is a 55-year-old female with chronic lumbar degenerative disc disease (with lumbar morphine pump), COPD on 2 L, HFpEF, type 2 diabetes with peripheral neuropathy, anxiety/depression who presents from home due to concern of altered mentation. Per mother at bedside, patient has had worsening confusion over the past 2 days. She was apparently found on her front porch without wearing oxygen in her underwear which is atypical for her. On arrival, patient was somewhat subdued. No respiratory compromise. Chart review reveals her morphine pain pump dose was increased by 10% 5 days ago 09/17/2025. Her blood pressures were also slightly hypotensive on arrival. She was given IV Narcan 0.4 mg which made her much more alert and oriented, but shortly went into acute moderate opioid withdrawal. CBC, CMP relatively unremarkable other than magnesium 1.1. UA unremarkable. Given his presentation, ED provider discussed case with me and agreed to evaluate the patient. Findings the ED did reach out to pain management to inquire whether morphine pain pump dosing can be decreased. Ines Christianson with pain management spoke with Dr. Sethi who advised 50% decrease in pain pump, and it will be done later tonight. I agreed to admit patient for further evaluation management. Hospital Course Hospital Course Hospital Course: Coretta Cuevas is a 55-year-old female with chronic lumbar degenerative disc disease (with lumbar morphine pump), COPD on 2 L, HFpEF, type 2 diabetes with peripheral neuropathy, anxiety/depression who presents from home due to concern of altered mentation. Per mother at bedside, patient has had worsening confusion over the past 2 days. She was apparently found on her front porch without wearing oxygen in her underwear which is atypical for her. On arrival, patient was somewhat subdued. No respiratory compromise. Chart review reveals her morphine pain pump dose was increased by 10% 5 days ago 09/17/2025. Her blood pressures were also slightly hypotensive on arrival. She was given IV Narcan 0.4 mg which made her much more alert and oriented, but shortly went into acute moderate opioid withdrawal. CBC, CMP relatively unremarkable other than magnesium 1.1. UA unremarkable. Given his presentation, ED provider discussed case with me and agreed to evaluate the patient. Findings the ED did reach out to pain management to inquire whether morphine pain pump dosing can be decreased. Ines Christianson with pain management spoke with Dr. Sethi who advised 50% decrease in pain pump, and it will be done later tonight. I agreed to admit patient for further evaluation management. #Acute toxic metabolic encephalopathy #Unintentional opioid overdose #Lumbar degenerative disc disease/pain ? Patient presented with confusion, weakness, encephalopathy and found to have opiate overdose in the setting of recent lumbar morphine pain pump dose increase due to low back pain. No respiratory compromise. ? Low-dose Narcan in the ED improved patient's encephalopathy, but has had transient acute opioid withdrawal which self resolved. ? Pain management will decreased pain pump dose by 50%, which significantly improved symptoms into today. Patient is alert, oriented, back to baseline. ? Discussed with pain management, will keep dose at 50% and patient will follow-up in their clinic within 2 days for further management. Patient does not have increased analgesic needs at this time. #COPD on 2 L ? Compensated. Continue home Trelegy. #HFpEF ? Currently euvolemic. Continue home Lasix 40 mg. #Type 2 diabetes #Peripheral neuropathy ? Hemoglobin A1c 6.6%. Hold off on ACHS for now. ? Reduced home pregabalin from 150 mg to 100 mg due to polypharmacy, oversedation. #Anxiety/depression ? Continue home buspirone, duloxetine, paroxetine. Reduced zolpidem dose from 10 mg to 5 mg due to oversedation. #GERD ? Continue home PPI. Total time spent on discharge: 35 minutes on chart review, counseling, documentation, and direct care with patient. Exam Data for Last 24 hours Vital signs and Labs for Last 24 Hours: Temp Pulse Resp BP Pulse Ox O2 Del Method O2 Flow Rate 97.8 F 83 16 113/69 95 Nasal Cannula 2 09/23/25 07:50 09/23/25 11:52 09/23/25 11:52 09/23/25 11:52 09/23/25 11:52 09/23/25 12:21 09/23/25 12:21 Laboratory Results - last 24 hr 09/22/25 16:30: WBC 11.6 H, RBC 3.85 L, Hgb 10.7 L, Hct 33.0 L, MCV 85.7, MCH 27.8, MCHC 32.4, RDW 13.4, Plt Count 240, MPV 12.2 H, Neut % (Auto) 65.0, Lymph % (Auto) 17.6, [place] % (Auto) 12.0 H, Eos % (Auto) 3.2, Baso % (Auto) 0.7, Neut # (Auto) 7.6, Lymph # (Auto) 2.0, [place] # (Auto) 1.4 H, Eos # (Auto) 0.4, Baso # (Auto) 0.1, VBG pH 7.37, VBG pCO2 59.2 H, VBG pO2 45.7 H, VBG HCO3 33.7 H, VBG Total CO2 35.5 H, VBG O2 Saturation 78.3 H, VBG Base Excess 8.4 H, VBG Lactic Acid 1.8, Sodium 136, Potassium 3.4 L, Chloride 94 L, Carbon Dioxide 36 H, Anion Gap 9.4, BUN 23 H, Creatinine 1.30 H, Estimated Creat Clear 57, Estimated GFR 42 L, Est GFR ( Amer) 51 L, Glucose 99, Calcium 8.4, Magnesium 1.1 L, Total Bilirubin 0.5, AST 45 H, ALT 23, Alkaline Phosphatase 99, Troponin I < 0.01, Total Protein 6.4, Albumin 2.9 L, Globulin 3.5 H, Albumin/Globulin Ratio 0.8 L, Lipase 28 09/22/25 17:50: Urine Color Yellow, Urine Appearance Clear, Urine pH 6.0, Ur Specific [place] 1.020, Urine Protein Negative, Urine Glucose (UA) Negative, Urine Ketones Negative, Urine Blood Negative, Urine Nitrate Negative, Urine Bilirubin Negative, Urine Urobilinogen 0.2, Ur Leukocyte Esterase Negative, Urine RBC None, Urine WBC None, Ur Squamous Epith Cells 3-5, Urine Bacteria 1+, Hyaline Casts 5-10, Urine Opiates Screen Positive H, Urine Methadone Screen Negative, Ur Barbituates Screen Negative, Ur Phencyclidine Scrn Negative, Ur Amphetamines Screen Negative, U Benzodiazepines Scrn Positive H, Urine Cocaine Screen Negative, U Marijuana (THC) Screen Negative, SARS-CoV-2 (PCR) Not detected, Influenza A Untype (PCR) Not detected, Influenza Type B (PCR) Not detected 09/22/25 21:03: Troponin I < 0.01 09/22/25 22:30: Troponin I < 0.01 09/23/25 06:05: POC Glucose 136 H 09/23/25 08:42: WBC 9.5, RBC 3.90 L, Hgb 10.8 L, Hct 33.9 L, MCV 86.9, MCH 27.7, MCHC 31.9, RDW 13.7, Plt Count 234, MPV 11.9 H, Neut % (Auto) 72.9, Lymph % (Auto) 18.2, [place] % (Auto) 7.8, Eos % (Auto) 0.1, Baso % (Auto) 0.1, Neut # (Auto) 7.0, Lymph # (Auto) 1.7, [place] # (Auto) 0.7, Eos # (Auto) 0.0, Baso # (Auto) 0.0, Sodium 135 L, Potassium 3.9, Chloride 97 L, Carbon Dioxide 31 H, Anion Gap 10.9, BUN 16 D, Creatinine 0.80 D, Estimated Creat Clear 101, Estimated GFR 74, Est GFR ( Amer) 90 D, Glucose 131 H D, Calcium 8.9, Magnesium 1.6 D, Total Bilirubin 0.4, AST 35, ALT 24, Alkaline Phosphatase 96, Total Protein 6.9, Albumin 3.2 L D, Globulin 3.7 H, Albumin/Globulin Ratio 0.9 L 09/23/25 12:11: POC Glucose 108 I & O for Last 24 hours: Intake & Output 09/20/25 09/21/25 09/22/25 09/23/25 23:59 23:59 23:59 23:59 Intake Total 1600 / 1600 120 / 120 Output Total 0 / 0 0 / 0 Balance 1600 / 1600 120 / 120 Weight 81.511 kg 81.511 kg Constitutional Constitutional: no acute distress and chronically ill appearing *Routine HEENT Exam Head: Present normocephalic Eye: Present EOMI and PERRL ENT: Present mucous membranes moist *Routine Neck Exam Neck: Present supple; Absent lymphadenopathy *Routine Respiratory Exam Respiratory: Present CTA bilaterally *Routine Cardiovascular Exam Cardiovascular: Present RRR *Routine Abdominal Exam Abdominal: Present soft and normoactive bowel sounds; Absent tenderness *Routine Extremities Exam Extremities: Absent cyanosis, clubbing or edema *Routine Skin Exam Skin: Present warm; Absent rash *Routine Neurological Exam Neurological: Present alert Results Data Completed and Pending Labs on day of discharge: Labs from last 24 hours 09/23/25 09/23/25 09/23/25 12:11 08:42 06:05 WBC 9.5 RBC 3.90 L Hgb 10.8 L Hct 33.9 L MCV 86.9 MCH 27.7 MCHC 31.9 RDW 13.7 Plt Count 234 MPV 11.9 H Neut % (Auto) 72.9 Lymph % (Auto) 18.2 [place] % (Auto) 7.8 Eos % (Auto) 0.1 Baso % (Auto) 0.1 Neut # (Auto) 7.0 Lymph # (Auto) 1.7 [place] # (Auto) 0.7 Eos # (Auto) 0.0 Baso # (Auto) 0.0 VBG pH VBG pCO2 VBG pO2 VBG HCO3 VBG Total CO2 VBG O2 Saturation VBG Base Excess VBG Lactic Acid Sodium 135 L Potassium 3.9 Chloride 97 L Carbon Dioxide 31 H Anion Gap 10.9 BUN 16 D Creatinine 0.80 D Estimated Creat Clear 101 Estimated GFR 74 Est GFR ( Amer) 90 D Glucose 131 H D POC Glucose 108 136 H Calcium 8.9 Magnesium 1.6 D Total Bilirubin 0.4 AST 35 ALT 24 Alkaline Phosphatase 96 Troponin I Total Protein 6.9 Albumin 3.2 L D Globulin 3.7 H Albumin/Globulin Ratio 0.9 L Lipase Urine Color Urine Appearance Urine pH Ur Specific [place] Urine Protein Urine Glucose (UA) Urine Ketones Urine Blood Urine Nitrate Urine Bilirubin Urine Urobilinogen Ur Leukocyte Esterase Urine RBC Urine WBC Ur Squamous Epith Cells Urine Bacteria Hyaline Casts Urine Opiates Screen Urine Methadone Screen Ur Barbituates Screen Ur Phencyclidine Scrn Ur Amphetamines Screen U Benzodiazepines Scrn Urine Cocaine Screen U Marijuana (THC) Screen SARS-CoV-2 (PCR) Influenza A Untype (PCR) Influenza Type B (PCR) 09/22/25 09/22/25 09/22/25 22:30 21:03 17:50 WBC RBC Hgb Hct MCV MCH MCHC RDW Plt Count MPV Neut % (Auto) Lymph % (Auto) [place] % (Auto) Eos % (Auto) Baso % (Auto) Neut # (Auto) Lymph # (Auto) [place] # (Auto) Eos # (Auto) Baso # (Auto) VBG pH VBG pCO2 VBG pO2 VBG HCO3 VBG Total CO2 VBG O2 Saturation VBG Base Excess VBG Lactic Acid Sodium Potassium Chloride Carbon Dioxide Anion Gap BUN Creatinine Estimated Creat Clear Estimated GFR Est GFR ( Amer) Glucose POC Glucose Calcium Magnesium Total Bilirubin AST ALT Alkaline Phosphatase Troponin I < 0.01 < 0.01 Total Protein Albumin Globulin Albumin/Globulin Ratio Lipase Urine Color Yellow Urine Appearance Clear Urine pH 6.0 Ur Specific [place] 1.020 Urine Protein Negative Urine Glucose (UA) Negative Urine Ketones Negative Urine Blood Negative Urine Nitrate Negative Urine Bilirubin Negative Urine Urobilinogen 0.2 Ur Leukocyte Esterase Negative Urine RBC None Urine WBC None Ur Squamous Epith Cells 3-5 Urine Bacteria 1+ Hyaline Casts 5-10 Urine Opiates Screen Positive H Urine Methadone Screen Negative Ur Barbituates Screen Negative Ur Phencyclidine Scrn Negative Ur Amphetamines Screen Negative U Benzodiazepines Scrn Positive H Urine Cocaine Screen Negative U Marijuana (THC) Screen Negative SARS-CoV-2 (PCR) Not detected Influenza A Untype (PCR) Not detected Influenza Type B (PCR) Not detected 09/22/25 16:30 WBC 11.6 H RBC 3.85 L Hgb 10.7 L Hct 33.0 L MCV 85.7 MCH 27.8 MCHC 32.4 RDW 13.4 Plt Count 240 MPV 12.2 H Neut % (Auto) 65.0 Lymph % (Auto) 17.6 [place] % (Auto) 12.0 H Eos % (Auto) 3.2 Baso % (Auto) 0.7 Neut # (Auto) 7.6 Lymph # (Auto) 2.0 [place] # (Auto) 1.4 H Eos # (Auto) 0.4 Baso # (Auto) 0.1 VBG pH 7.37 VBG pCO2 59.2 H VBG pO2 45.7 H VBG HCO3 33.7 H VBG Total CO2 35.5 H VBG O2 Saturation 78.3 H VBG Base Excess 8.4 H VBG Lactic Acid 1.8 Sodium 136 Potassium 3.4 L Chloride 94 L Carbon Dioxide 36 H Anion Gap 9.4 BUN 23 H Creatinine 1.30 H Estimated Creat Clear 57 Estimated GFR 42 L Est GFR ( Amer) 51 L Glucose 99 POC Glucose Calcium 8.4 Magnesium 1.1 L Total Bilirubin 0.5 AST 45 H ALT 23 Alkaline Phosphatase 99 Troponin I < 0.01 Total Protein 6.4 Albumin 2.9 L Globulin 3.5 H Albumin/Globulin Ratio 0.8 L Lipase 28 Urine Color Urine Appearance Urine pH Ur Specific [place] Urine Protein Urine Glucose (UA) Urine Ketones Urine Blood Urine Nitrate Urine Bilirubin Urine Urobilinogen Ur Leukocyte Esterase Urine RBC Urine WBC Ur Squamous Epith Cells Urine Bacteria Hyaline Casts Urine Opiates Screen Urine Methadone Screen Ur Barbituates Screen Ur Phencyclidine Scrn Ur Amphetamines Screen U Benzodiazepines Scrn Urine Cocaine Screen U Marijuana (THC) Screen SARS-CoV-2 (PCR) Influenza A Untype (PCR) Influenza Type B (PCR) DS: Diagnosis Discharge Diagnosis (1) Accidental overdose of non-opiate analgesics: Status: Acute Code(s): T39.91XA - Poisoning by unspecified nonopioid analgesic, antipyretic and antirheumatic, accidental (unintentional), initial encounter Meds Home Medications and Allergies Home Medications ?Medication ?Instructions ?Recorded ?Confirmed ?Type montelukast 10 mg tablet 10 mg PO HS 05/12/21 09/22/25 History pantoprazole 40 mg tablet,delayed 40 mg PO DAILY 07/07/21 09/22/25 History release aspirin 81 mg tablet,delayed 81 mg PO DAILY 03/23/22 09/22/25 History release metformin 500 mg tablet 500 mg PO DAILY 08/03/22 09/22/25 History pravastatin 40 mg tablet 40 mg PO DAILY 08/21/22 09/22/25 History fluticasone fur. 200 mcg-umeclid 1 inh inhalation DAILY 01/07/24 09/22/25 History 62.5 mcg-vilant 25 mcg inhalat.powder (Trelegy Ellipta) buspirone 15 mg tablet 15 mg PO BID 09/02/25 09/22/25 History diazepam 5 mg tablet 5 mg PO DAILY 09/02/25 09/22/25 History duloxetine 60 mg capsule,delayed 60 mg PO DAILY 09/02/25 09/22/25 History release estradiol 0.01% (0.1 mg/gram) 2 g vaginal DAILY 09/02/25 09/22/25 History vaginal cream fluticasone propionate 50 2 spray intranasal DAILY 09/02/25 09/22/25 History mcg/actuation nasal spray,suspension paroxetine HCl 10 mg tablet 10 mg PO HS 09/02/25 09/22/25 History furosemide 40 mg tablet (Lasix) 40 mg PO DAILY #30 tabs 09/17/25 09/22/25 Rx baclofen 10 mg tablet 10 mg PO TID 30 days #0 tabs 09/23/25 09/22/25 Rx pregabalin 100 mg capsule 100 mg PO TID #60 caps 09/23/25 Rx zolpidem 10 mg tablet 5 mg (1/2 x 10 mg) PO HS PRN Sleep 09/23/25 09/22/25 Rx 30 days #0 tabs New Prescriptions to Start Prescriptions: pregabalin Pato Stephens Allergies Allergy/AdvReac Type Severity Reaction Status Date / Time Sulfa (Sulfonamide Allergy Rash Verified 09/17/25 11:42 Antibiotics) Discharge Plan Disposition Patient Disposition: Home, Self-Care Condition: Fair Follow up Plan Follow up with: Ines Christianson APRN [Nurse Practitioner, Pain Management] - 09/25/25 1:30 pm Prescriptions/Medication Reconciliation: New pregabalin 100 mg capsule 100 mg PO TID Qty: 60 0RF Continued metformin 500 mg tablet 500 mg PO DAILY pravastatin 40 mg tablet 40 mg PO DAILY aspirin 81 mg tablet,delayed release (DR/EC) 81 mg PO DAILY Trelegy Ellipta 200-62.5-25 mcg blister with device 1 inh inhalation DAILY Patient Comments: INHALE 1 PUFF BY MOUTH EVERY DAY montelukast 10 MG tablet 10 mg PO HS pantoprazole 40 mg tablet,delayed release (DR/EC) 40 mg PO DAILY furosemide [Lasix] 40 mg tablet 40 mg PO DAILY Qty: 30 0RF baclofen 10 mg tablet 10 mg PO TID 30 Days Qty: 0 0RF Patient Comments: TAKE 1 TABLET BY MOUTH THREE TIMES DAILY paroxetine HCl 10 mg tablet 10 mg PO HS Patient Comments: TAKE 1 TABLET BY MOUTH EVERY DAY IN THE EVENING FOR MOOD estradiol 0.01 % (0.1 mg/gram) cream 2 g VAGINAL DAILY Patient Comments: INSERT 2 GRAMS VAGINALLY DAILY fluticasone propionate 50 mcg/actuation spray,suspension 2 spray INTRANASAL DAILY Patient Comments: SHAKE LIQUID AND USE 2 SPRAYS IN EACH NOSTRIL DAILY DIRECTED diazepam 5 mg tablet 5 mg PO DAILY Patient Comments: TAKE 1 TABLET BY MOUTH EVERY DAY buspirone 15 mg tablet 15 mg PO BID Patient Comments: TAKE 1 TABLET BY MOUTH TWICE DAILY DIRECTED FOR ANXIETY duloxetine 60 mg capsule,delayed release(DR/EC) 60 mg PO DAILY Patient Comments: TAKE 1 CAPSULE BY MOUTH EVERY DAY IN THE MORNING FOR MOOD Changed zolpidem 10 mg tablet 5 mg PO HS PRN (Reason: Sleep) 30 Days Qty: 0 0RF Discontinued pregabalin [Lyrica] 150 mg capsule 150 mg PO TID Qty: 90 2RF Problem Reconciliation Problems Reviewed?: Yes Patient Discharge Instructions Additional Instructions: We have decreased the doses of some of your medications to help reduce the risk of oversedation, confusion. Please follow-up with your pain management provider for further discussion about your medications. Patient Instructions: DI for Acetaminophen Poisoning, DI for Altered Mental Status, Stop Light COPD Print Language: Georgian Providers Primary Care Provider: Provider,Referral Admit Provider: Pato Stephens Attending Provider: Pato Stephens
[2025-09-23] MEDS: BUSPIRONE HCL 10 MG TABLET 15 MG PO (13:04)
[2025-09-23] MEDS: diazePAM 5MG TABLET 5 MG PO (13:05)
--- NOTE | 2025-09-25 10:29 | SW/DCPLANNER ---
Phoned patient x2. Left message each time with name and a call back number. Radha Conway
== END 2025-09-23 14:03 | disposition home or self-care (01) ==
LOC: ER 18:30 → 2ND 18:48
PROVIDERS: Nurse Practitioner; Admitting Provider Student in an Organized Health Care Education/Training Program; Emergency Provider Student in an Organized Health Care Education/Training Program; Visit Provider Student in an Organized Health Care Education/Training Program
DX: T40.2X1A Poisoning by other opioids, accidental (unintentional), initial encounter (principal); G92.8 Other toxic encephalopathy; M51.360 Other intervertebral disc degeneration, lumbar region with discogenic back pain only; E11.42 Type 2 diabetes mellitus with diabetic polyneuropathy; F41.9 Anxiety disorder, unspecified; J44.89 Other specified chronic obstructive pulmonary disease; F32.A Depression, unspecified; I11.0 Hypertensive heart disease with heart failure; E78.5 Hyperlipidemia, unspecified; K21.9 Gastro-esophageal reflux disease without esophagitis; I50.30 Unspecified diastolic (congestive) heart failure; E66.9 Obesity, unspecified; J18.9 Pneumonia, unspecified organism; G89.29 Other chronic pain; Z99.81 Dependence on supplemental oxygen; Z97.8 Presence of other specified devices; Z68.33 Body mass index [BMI] 33.0-33.9, adult; Z85.89 Personal history of malignant neoplasm of other organs and systems; Z87.891 Personal history of nicotine dependence; Z88.2 Allergy status to sulfonamides; Z79.84 Long term (current) use of oral hypoglycemic drugs; Z79.82 Long term (current) use of aspirin; Z79.51 Long term (current) use of inhaled steroids; Z79.899 Other long term (current) drug therapy
CPT/HCPCS: 36415; 70450; 71275; 80053; 80307; 81001; 82803; 82962; 83690; 83735; 84484; 85025; 87040; 87636; 89220; 93005; 94640; 96365; 96366; 96367; 96375; 97162; 97165; 99285; G0378; J0456; J0696; J1100; J2312; J2405; J3475; J3480; J7030; J7050; Q9967

== ENCOUNTER 2025-10-12 10:00 | Outpatient (RCR) | payer MEDICARE, MEDICAID, SELFPAY | END 2025-10-12 23:59 | disposition home or self-care (01) | LOC: PT.CARL 10:00 | PROVIDERS: Visit Provider Internal Medicine Adolescent Medicine | DX: J96.01 Acute respiratory failure with hypoxia (principal) | CPT/HCPCS: 97110; 97162 ==

== ENCOUNTER 2025-10-26 10:04 | Outpatient (RCR) | payer MEDICARE, MEDICAID, SELFPAY | END 2025-11-02 10:48 | disposition home or self-care (01) | LOC: PT.CARL 10:04 | PROVIDERS: PCP Emergency Medicine; Visit Provider Internal Medicine Adolescent Medicine | DX: J96.01 Acute respiratory failure with hypoxia (principal) | CPT/HCPCS: 97110 ==

== ENCOUNTER 2025-11-10 12:14 | Outpatient (CLI) | payer MEDICARE, MEDICAID, SELFPAY ==
--- OUTSIDE RECORDS SUMMARY | 2025-09-24 22:25 | XMS_ITS | Encounter Summary ---
Author Organization [facility] ([place], [place], [place], [place], [place]) Address [address] [place] [address] Care Team Providers Care Creative Strategist Name Role Phone Arline Mathias PA-C Primary Care Provider [phone] Reason for Visit * Auth/Cert (Routine) Specialty Diagnoses / Procedures Referred By Contac t Referred To Contact Diagnoses Acute metabolic encephalopathy Encephalopathy [address] Neuro Telemetry [address] [place] [address] Phone: tel: fax: [address] Tele[address] [place] [address] Phone: tel: fax: Referral ID Status Reason Start Date Expiration Date Visits Re quested Visits Authorized [id number] 1 1 Encounter Details Date Type Department Care Team (Late st Contact Info) Description 09/24/2025 11:25 PM EDT - 09/27/2025 6:10 PM EST Hospital Encounter [address] Neuro Telemetry [address] [place] [address] Maura Parra MD [address] [place] [address] Leon Crouch PA-[place] [facility] [place] [address] Cas Andino MD [address] [facility] [address] [id number] Sergey Miramontes DO [address] [facility] [address] [place] [address] Discharge Disposition: Short Term Hospital Social History Tobacco Use Types Packs/Day Years Used Date Smoking Tobacco: Never Assessed Comments No Sex and Gender Information Value Date Recorded Sex Assigned at Not on file Legal Sex Female 4:13 PM CDT Gender Identity Not on file Sexual Orientation Not on file documented as of this encounter Last Filed Vital Signs Vital Sign Reading Time Taken Comments Blood Pressure 126/76 09/27/2025 8:58 AM EST Pulse 81 09/27/2025 8:58 AM EST Temperature 36.2 C (97.2 F) 09/27/2025 8:58 AM EST Respiratory Rate 19 09/27/2025 8:58 AM EST Oxygen Saturation 99% 09/27/2025 9:48 AM EST Inhaled Oxygen Concentration - - Weight - - Height - - Body Mass Index - - documented in this encounter Discharge Summaries * Cas Andino MD - 09/27/2025 8:04 AM EST Patient Name: Coretta Moctezuma : 1970 Date of Admission: 09/24/2025 Date of Discharge: 09/27/2025 6:10 PM Primary Care Physician: Arline Mathias PA-C Consultations: Discharge Diagnoses: Altered mental status Reason for Admission: Coretat Moctezuma is a 55 y.o. female with a history of anxiety, COPD, depression, hypertension, hyperlipidemia, previous substance abuse, obstructive sleep apnea, type 2 diabetes, AND previous smoking history presents to [facility] in [place], [place] for further evaluation and managementof altered mental status. History of present illness primarily obtained primarily through chart review. Patient has reported pain pump which recently was adjusted at [facility] days prior to admission. Unclear if patient has been confused prior to pain pump adjustment or only afterwards. Since that time patient has had altered mental status reported per family. Patient states she has been more confused as of late and states night prior to admission patient felt as though her brother was outside with a gun and was going to shoot her. Patient states she was reassured byher mother that her brother was not outside with a gun and this was seemingly enough to comfort thepatient. Patient denies fever, chills, vomiting, diarrhea, and abdominal pain. Patient does endorse nausea. Per outside facility mother reported that patient was naked in the road yesterday and yelled for mommy all night . Day prior to admission patient went to her therapist who advised patient beadmitted to psych facility. Patient sought evaluation at [facility] emergency department where patient was positive for benzodiazepines but was negative for opiates despite pain pump placement. [facility] could not accept the patient due to patient's pain pump and [facility] was on diversion. Patient was subsequently transferred to [facility] for neurology coverage. At time of evaluation patient seems altered and lethargic/delayed in thinking however can hold a conversation. Hospital Course: Patient was admitted for altered mental status, concern for polysubstance abuse, polypharmacy, withchronic pain pump in place, she was evaluated by neurology and psychiatry, psychiatry recommended discontinue Ambien, she was started on Remeron 15 mg at bedtime for benefit of depression and anxietysleep, overall behavioral condition stable. Patient can follow-up with psychiatry as an outpatient Studies Performed: Procedures Performed: Discharge Medications: Your medication list START taking these medications Instructions Comments Quantity Refills docusate sodium 100 MG capsule Commonly known as: COLACE Take 1 capsule (100 mg total) by mouth 2 (two) times daily as needed for constipation for up to 10 days. 10 capsule 0 mirtazapine 15 MG tablet Commonly known as: REMERON Take 1 tablet (15 mg total) by mouth nightly for 30 days. 30 tablet 0 CHANGE how you take these medications Instructions Comments Quantity Refills pregabalin 100 MG capsule Commonly known as: LYRICA What changed: medication strength how much to take when to take this Take 1 capsule (100 mg total) by mouth 2 (two) times daily for 30 days. Max Daily Amount: 200 mg 60 capsule 0 CONTINUE taking these medications Instructions Comments Quantity Refills busPIRone 15 MG tablet Commonly known as: BUSPAR Take 1 tablet (15 mg total) by mouth 2 (two) times daily. 0 diazePAM 5 MG tablet Commonly known as: VALIUM Take 1 tablet (5 mg total) by mouth nightly. Max Daily Amount: 5 mg 0 diclofenac sodium 75 MG EC tablet Commonly known as: VOLTAREN Take 1 tablet (75 mg total) by mouth 2 (two) times daily as needed (for Pain). 0 DULoxetine 60 MG capsule Commonly known as: CYMBALTA Take 1 capsule (60 mg total) by mouth daily. 0 estradioL 0.01 % (0.1 mg/gram) vaginal cream Commonly known as: ESTRACE Insert 2 g into the vagina nightly. 0 fluticasone propionate 50 mcg/actuation nasal spray Commonly known as: FLONASE Administer 2 sprays into each nostril daily as needed for rhinitis. 0 furosemide 40 MG tablet Commonly known as: LASIX Take 1 tablet (40 mg total) by mouth daily. 0 ipratropium-albuteroL 0.5 mg-3 mg(2.5 mg base)/3 mL nebulizer solution Commonly known as: DUO-NEB Inhale 3 mLs by nebulization 4 (four) times daily as needed for shortness of breath. 0 metFORMIN 500 MG tablet Commonly known as: GLUCOPHAGE Take 1 tablet (500 mg total) by mouth daily with breakfast. 0 Missing or Non-Formulary Medication by intrathecal route as directed Pain Pump: use as directed . 0 montelukast 10 mg tablet Commonly known as: SINGULAIR Take 1 tablet (10 mg total) by mouth nightly. 0 pantoprazole 40 MG tablet Commonly known as: PROTONIX Take 1 tablet (40 mg total) by mouth daily. 0 pravastatin 40 MG tablet Commonly known as: PRAVACHOL Take 1 tablet (40 mg total) by mouth nightly. 0 Trelegy Ellipta 200-62.5-25 mcg Dsdv Generic drug: yqmosvvgukq-pmqlmmuqj-cuxgwllq Inhale 1 puff by mouth daily. 0 STOP taking these medications baclofen 10 MG tablet Commonly known as: LIORESAL carvediloL 6.25 MG tablet Commonly known as: COREG zolpidem 10 mg tablet Commonly known as: TODD Where to Get Your Medications These medications were sent to [facility] - [address] [address] docusate sodium 100 MG capsule mirtazapine 15 MG tablet pregabalin 100 MG capsule Physical Exam BP 126/76 (BP Location: Right arm, Patient Position: Lying) Pulse 81 Temp 97.2 ??F (36.2 ??C) (Oral) Resp 19 SpO2 99% Discharge Instructions Discharge Diet: Discharge Activity: Discharge Follow UP: Contact information for follow-up Don Rao MD Specialty: Neurology [address] [address] Next Steps: Call in 1 month(s) Instructions: Patient should call for a follow up appointment with [facility] Neurology. Jim Wilks NP [address] [facility] [address] Next Steps: Follow up in 1 week(s) Arline Mathias PA-C Specialty: [facility] Coordinator Relationship: PCP - General [address] [place] [phone] Next Steps: Follow up in 1 week(s) Time Spent: 33 min Electronically signed by Cas Andino MD, 09/27/25, 10:31 PM EST E ERECTOR SUPERVISOR documented in this encounter Medications at Time of Discharge busPIRone (BUSPAR) 15 MG tablet Take 1 tablet (15 mg total) by mouth 2 (two) times daily. diazePAM (VALIUM) 5 MG tablet Take 1 tablet (5 mg total) by mouth nightly. Max Daily Amount: 5 mg diclofenac sodium (VOLTAREN) 75 MG EC tablet Take 1 tablet (75 mg total) by mouth 2 (two) times daily as needed (for Pain). DULoxetine (CYMBALTA) 60 MG capsule Take 1 capsule (60 mg total) by mouth daily. estradioL (ESTRACE) 0.01 % (0.1 mg/gram) vaginal cream Insert 2 g into the vagina nightly. fluticasone propionate (FLONASE) 50 mcg/actuation nasal spray Administer 2 sprays into each nostril daily as needed for rhinitis. fluticasone-umec lidin-vilanter (Trelegy Ellipta) 200-62.5-25 mcg dsdv Inhale 1 puff by mouth daily. furosemide (LASIX) 40 MG tablet Take 1 tablet (40 mg total) by mouth daily. ipratropium-albu teroL (DUO-NEB) 0.5 mg-3 mg(2.5 mg base)/3 mL nebulizer solution Inhale 3 mLs by nebulization 4 (four) times daily as needed for shortness of breath. metFORMIN (GLUCOPHAGE) 500 MG tablet Take 1 tablet (500 mg total) by mouth daily with breakfast. Missing or Non-Formulary Medication by intrathecal route as directed Pain Pump: use as directed . montelukast (SINGULAIR) 10 mg tablet Take 1 tablet (10 mg total) by mouth nightly. pantoprazole (PROTONIX) 40 MG tablet Take 1 tablet (40 mg total) by mouth daily. pravastatin (PRAVACHOL) 40 MG tablet Take 1 tablet (40 mg total) by mouth nightly. docusate sodium (COLACE) 100 MG capsule Take 1 capsule (100 mg total) by mouth 2 (two) times daily as needed for constipation for up to 10 days. 10 capsule 09/27/2025 5 mirtazapine (REMERON) 15 MG tablet Take 1 tablet (15 mg total) by mouth nightly for 30 days. 30 tablet 09/27/2025 5 pregabalin (LYRICA) 100 MG capsule Take 1 capsule (100 mg total) by mouth 2 (two) times daily for 30 days. Max Daily Amount: 200 mg 60 capsule 09/27/2025 5 documented as of this encounter Progress Notes * Reza Thrasher MD - 09/27/2025 10:54 AM EST Assessment: 55-year-old female patient of Dr. Ford with polysubstance use and psychiatric issues. Psychiatric hospital admission was recommended, unable to achieve and she was transferred here. She is improving. Psych has seen, they added Remeron. OK to discharge with fu to PCP. If continued concerns can get OP referral to Neurology. I would like to be notified of any significant change in Neuro status. Further recommendations willbe based on test results, care transitions nurse communication, and clinical course. Ordered: ROS: no change except as in Subjective Subjective: No change Presentation: 55 y.o. female with a history of anxiety, COPD, depression, hypertension, hyperlipidemia, previous substance abuse, obstructive sleep apnea, type 2 diabetes, AND previous smoking history presents to [facility] in [place], [place] for further evaluation and management of altered mental status. History of present illness primarily obtained primarily through chart review. Patient has reported pain pump which recently was adjusted at [facility] 3 days prior to admission. Unclear if patient has been confused prior to pain pump adjustment or only afterwards. Since that time patient has had altered mental status reported per family. Patient states she has been more confused as of late and states night prior to admission patient felt as though her brother was outside with a gun and was going to shoot her. Patient states she was reassured by her mother that her brother was not outside with a gun and this was seemingly enough to comfort the patient. Patient denies fever, chills, vomiting, diarrhea, and abdominal pain. Patient does endorse nausea. Per outside facility mother reported that patient was naked in the road yesterday and yelled for mommy all night . Day prior to admission patient went to her [facility] sought evaluation at [facility] emergency department where patient was positive for benzodiazepines but was negative for opiates despite pain pump placement. [facility] could not accept the patient due to patient's pain pump and [facility] was on diversion. Patient was subsequently transferred to [facility] for neurology coverage. At time of evaluation patient seems altered and lethargic/delayed in thinking however can hold a conversation. I have spent 40 minutes on this case today. Over half of that time was spent reviewing the chart, discussion with care givers, and counseling, reviewing and discussion with consulting MDs. PE: BP 126/76 (BP Location: Right arm, Patient Position: Lying) Pulse 81 Temp 97.2 ??F (36.2 ??C) (Oral) Resp 19 SpO2 99% Eyes, ENT-negative Pulmonary clear Cardiac without murmur Mental Status: Conversant some abnormal thought processing cranial Nerves: II through XII intact and symmetric Motor: Strength moves all 4 extremities Sensory: Responds in all 4 extremities Reflexes symmetric, toes down Cerebellar: no abnormal movements Gait: not tested due to pt condition Psychiatric: Appropriate Musculoskeletal: negative Lab: Lab Results Component Value Date PLT 209 09/27/2025 EGFR 103 09/27/2025 NA 141 09/27/2025 Studies personally reviewed Imaging: CT from November normal Studies personally reviewed E ERECTOR SUPERVISOR * Patel Rousseau RN - 09/26/2025 6:33 PM EDT Patient Activity Documentation What activity took place?: Ambulation If patient ambulated, how far did they walk? 10ft Was an assistive device used?: Gait Belt Level of assistance: Assist of 1 Signed by: Patel Rousseau RN * Cas Andino MD - 09/26/2025 10:26 AM EDT Subjective Seen and examined today. More alert and oriented. Review of Systems No fever or chills No SOB or CP Objective Last Recorded Vitals Blood pressure 129/73, pulse 74, temperature 98.8 ??F (37.1 ??C), temperature source Oral, resp. rate 16, SpO2 100%. Physical Exam Head atraumatic, normocephalic Consitutional alert, not in acute distress Cardiovascular S1, S2, No MGR Labs: Results for orders placed or performed during the hospital encounter of 09/24/25 (from the past 24 hours) Glucose, Nova Meter Status: None Collection Time: 09/25/25 3:56 PM Result Value Ref Range POC-GLUCOSE 105 70 - 110 mg/dL Technology Manager [id number] Glucose, Nova Meter Status: Abnormal Collection Time: 09/25/25 7:56 PM Result Value Ref Range POC-GLUCOSE 141 (H) 70 - 110 mg/dL Technology Manager [id number] Basic Metabolic Panel Status: Abnormal Collection Time: 09/26/25 3:39 AM Result Value Ref Range Sodium 143 136 - 145 meq/L Potassium 3.1 (L) 3.4 - 5.1 meq/L CO2 26 22 - 29 meq/L Chloride 104 98 - 112 meq/L Glucose 138 (H) 74 - 100 mg/dL BUN 14.0 9.8 - 20.1 mg/dL Creatinine 0.86 0.50 - 1.10 mg/dL BUN/Creatinine 16 8 - 20 Calcium 8.7 8.4 - 10.2 mg/dL Anion Gap 16 (H) 4 - 12 eGFR (mL/min/1.73m2) 79 >=60 mL/min/1.73m2 Osmolality Calc 287.6 mOsm/kg CBC with Automated Diff Status: Abnormal Collection Time: 09/26/25 3:39 AM Result Value Ref Range WBC 8.5 4.0 - 10.0 K/??L RBC 4.02 3.93 - 5.22 M/??L Hemoglobin 11.1 (L) 11.2 - 15.7 GM/DL Hematocrit 34.7 34.1 - 44.9 % MCV 86 79 - 95 fL MCH 27.6 25.6 - 32.2 pg MCHC 32.0 (L) 32.2 - 35.5 GM/DL RDW 13.6 11.7 - 14.4 % Platelets 206 140 - 375 K/CU MM MPV 12.0 9.4 - 12.3 fL % Neutros 46 34 - 71 % % Lymphs 34 19 - 52 % % Monos 13 5 - 13 % % Eos 4.5 1.0 - 6.0 % % Baso 1 0 - 1 % NRBC Absolute <0.01 0 - 0.012 K/ul # Neutros 3.90 1.56 - 6.13 K/??L # Lymphs 2.86 1.18 - 3.74 K/??L # Monos 1.09 (H) 0.24 - 0.86 K/??L # Eos 0.38 (H) 0.04 - 0.36 K/??L # Baso 0.08 0.01 - 0.08 K/??L % Imm Grans 1.70 (H) 0.01 - 0.43 % # IG 0.14 (H) 0.00 - 0.03 K/uL Glucose, Nova Meter Status: None Collection Time: 09/26/25 10:29 AM Result Value Ref Range POC-GLUCOSE 91 70 - 110 mg/dL Technology Manager [id number] No image results found. Assessment and Plan #Altered mental status; undifferentiated with concern for polysubstance abuse/polypharmacy with chronic pain pump in place and chronic anxiety and depression Initial Labs and imaging in outside facility were as follows:CT head without read no acute brain abnormality is identified. Urinalysis not indicative of UTI. Chest x-ray read linear left basilar opacities, most likely representing subsegmental atelectasis or possible scarring. UDS positive for benzodiazepines, negative otherwise; patient is prescribed benzos and has pain pump in place reportedly - ABG pH high at 7.47, CO2 below normal at 69, HCO3 high at 31.2; indicating metabolic alkalosis. -Nursing received report that patient has been taking diazepam 4 times daily, outside records show twice daily dosing, however medication dispense report shows once daily dosing - neurology and psychiatry consulted, her medications adjusted, improvement of mental status noted - Continue BuSpar 15 mg twice daily, duloxetine 60 mg daily, and pregabalin 100 mg twice daily as previously prescribed -,might need to adjust her pain pump rate? - diazepam 5 mg every 8 hours as needed - IV Ativan 2 mg as needed for seizure cessation - Fall precautions ordered - Vital signs per unit protocol - Monitor intake and output - Continuous telemetry monitoring Acute kidney injury with hypokalemia, mild -Baseline creatinine unknown -Creatinine elevated at 1.4 with eGFR 44 -Sodium normal at 140, potassium mildly low at 3.4 -Avoid nephrotoxic agents. -Check electrolytes and replete as needed. -Monitor renal function. -Renal dosing of medications. -gentle IV hydration -Consider Nephrology consult pending clinical course. -labs this morning WBC 8.5, Hb 11.1 Hypokalemia Replace Potassium ' Check in am #Lower extremity abrasions Order local antibiotics Diabetes -Glucose -SSI and hypoglycemia protocol -Consistent carbohydrate heart healthy diet order when not n.p.o. -Complicates all aspects of care. BG this morning 138 COPD without exacerbation - Continue montelukast 10 mg nightly as previously prescribed - DuoNebs ordered every 6 hours as needed - Pulmicort ordered twice daily - Oxygen as needed CHF? - Continue furosemide 40 mg daily as previously prescribed Insomnia - Zolpidem 5 mg nightly as needed, decreased from previously prescribed dosing Discharge Planning: Improvement of clinical condition. Home in 1-2 days documented in this encounter H&P Notes * Leon Crouch PA-C - 09/25/2025 12:03 AM EDT [facility] Patient Name: Coretta Moctezuma : 1970 Date: 09/25/2025 PCP: Arline Mathias PA-C Date of Admission: 09/24/2025 Chief Complaint: Altered mental status History of Present Illness Coretta Moctezuma is a 55 y.o. female with a history of anxiety, COPD, depression, hypertension, hyperlipidemia, previous substance abuse, obstructive sleep apnea, type 2 diabetes, AND previous smoking history presents to [facility] in [place], [place] for further evaluation and managementof altered mental status. History of present illness primarily obtained primarily through chart review. Patient has reported pain pump which recently was adjusted at [facility] days prior to admission. Unclear if patient has been confused prior to pain pump adjustment or only afterwards. Since that time patient has had altered mental status reported per family. Patient states she has been more confused as of late and states night prior to admission patient felt as though her brother was outside with a gun and was going to shoot her. Patient states she was reassured byher mother that her brother was not outside with a gun and this was seemingly enough to comfort thepatient. Patient denies fever, chills, vomiting, diarrhea, and abdominal pain. Patient does endorse nausea. Per outside facility mother reported that patient was naked in the road yesterday and yelled for mommy all night . Day prior to admission patient went to her therapist who advised patient beadmitted to psych facility. Patient sought evaluation at [facility] emergency department where patient was positive for benzodiazepines but was negative for opiates despite pain pump placement. [facility] could not accept the patient due to patient's pain pump and [facility] was on diversion. Patient was subsequently transferred to [facility] for neurology coverage. At time of evaluation patient seems altered and lethargic/delayed in thinking however can hold a conversation. Patient is being admitted for continued monitoring, evaluation, and treatment of altered mental status, with consultation to neurology and psychiatry. Patient is resting comfortably at time of admission, in no acute distress. All patient questions were answered at this time. Will proceed with admission and plan. Past Medical History: No past medical history on file. Past Surgical History: No past surgical history on file. Social History: Family History: No family history on file. Documented Allergies: Not on File Documented DIVER TENDER Medications: No medications prior to admission. Review of Systems A 14 point review of systems was obtained and is noncontributory except as noted below. Available past medical, social and family history reviewed. Review of Systems Constitutional: Negative for chills and fever. Respiratory: Negative for shortness of breath. Cardiovascular: Negative for chest pain. Gastrointestinal: Negative for abdominal pain, diarrhea, nausea and vomiting. Neurological: Negative for weakness and headaches. Psychiatric/Behavioral: Positive for depression. Negative for suicidal ideas. Objective Vitals: BP: ()/() Arterial Line BP 1: ()/() Intake/Output: No intake or output data in the 24 hours ending 09/25/25 0003 Physical Exam Vitals reviewed. Constitutional: General: She is not in acute distress. Appearance: Normal appearance. She is obese. She is not ill-appearing, toxic- appearing or diaphoretic. HENT: Head: Normocephalic and atraumatic. Cardiovascular: Rate and Rhythm: Normal rate and regular rhythm. Pulses: Normal pulses. Heart sounds: Normal heart sounds. Pulmonary: Effort: Pulmonary effort is normal. No respiratory distress. Breath sounds: Normal breath sounds. No stridor. No wheezing, rhonchi or rales. Chest: Chest wall: No tenderness. Abdominal: General: Bowel sounds are normal. There is no distension. Palpations: Abdomen is soft. Tenderness: There is no abdominal tenderness. There is no guarding. Musculoskeletal: Cervical back: Normal range of motion. Right lower leg: No edema. Left lower leg: No edema. Skin: General: Skin is warm and dry. Neurological: General: No focal deficit present. Mental Status: She is alert. GCS: GCS eye subscore is 4. GCS verbal subscore is 5. GCS motor subscore is 6. Cranial Nerves: No facial asymmetry. Motor: Motor function is intact. Psychiatric: Attention and Perception: Attention normal. Mood and Affect: Mood normal. Thought Content: Thought content normal. Recent Labs: No results found for this visit on 09/24/25 (from the past 24 hours). Microbiology Results (last 7 days) No results found for the last 168 hours. Radiology: Radiology Results (last 3 days) No results found for the last 72 hours. All Documented Medications: Scheduled Meds: Continuous Infusions: Current Facility-Administered Medications Medication Dose Route Frequency Provider Last Rate Last Admin acetaminophen (TYLENOL) tablet 1,000 mg 1,000 mg oral Q6H PRN Leon Crouch PA-C docusate sodium (COLACE) capsule 100 mg 100 mg oral BID PRN Leon Crouch PA-C hydrALAZINE (APRESOLINE) injection 5 mg 5 mg intravenous Q6H PRN eLon Crouch PA-C magnesium sulfate IVPB 2 g in sterile water 50 mL (premix) 2 g intravenous Daily PRN Leon Crouch PA-C magnesium sulfate IVPB 2 g in sterile water 50 mL (premix) 2 g intravenous BID PRN Leon Crouch PA-C melatonin tablet 5 mg 5 mg oral Every Night PRN Leon Crouch PA-C ondansetron (ZOFRAN-ODT) disintegrating tablet 4 mg 4 mg oral Q8H PRN Leon Crouch PA-C Or ondansetron (ZOFRAN) injection 4 mg 4 mg intravenous Q8H PRN Leon Crouch PA-C potassium chloride (KLOR-CON) ER tablet 40 mEq 40 mEq oral 4x Daily PRN Leon Crouch PA-C potassium chloride IVPB 10 mEq in 100 mL sterile water (premix) 10 mEq intravenous Q1H PRN Leon Crouch PA-C sodium chloride flush 10 mL 10 mL intravenous PRN Leon Crouch PA-C PRN Meds: @MEDSPRN@ Assessment and Plan Principal Problem: Acute metabolic encephalopathy Altered mental status; undifferentiated with concern for polysubstance abuse/polypharmacy with chronic pain pump in place and chronic anxiety and depression Labs and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 psychotherapy to the client including discussion of risk associated with long-term use of Valium. Will continue to intermittently follow the patient throughout hospitalization and make medication adjustments as clinically indicated. Patient consultation and for allowing me to participate in the care of this patient. 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 Miscellaneous Notes * Plan of Care - Ata Ugalde RN - 09/27/2025 10:44 AM EST Problem: Compromised Skin Integrity Goal: LTG - Patient will be free from infection Outcome: Progressing Goal: LTG - Patient will maintain/improve skin integrity through proper skin care techniques Outcome: Progressing Goal: LTG - Patient will demonstrate appropriate pressure relief techniques Outcome: Progressing Goal: LTG - Patient will demonstrate appropriate skin care techniques Outcome: Progressing Goal: LTG - Patient will be free from infection Outcome: Progressing Goal: STG - Patient demonstrates skin care/treatment/dressing change Outcome: Progressing Goal: STG - Patient will maintain good skin integrity Outcome: Progressing Goal: STG - Patient exhibits signs of wound healing. Outcome: Progressing Goal: STG - Patient demonstrates pressure reduction techniques Outcome: Progressing Goal: STG - Patient demonstrates preventative skin care measures Outcome: Progressing Problem: Knowledge Deficit Goal: Patient/family/caregiver demonstrates understanding of disease process, treatment plan, medications, and discharge instructions Description: Complete learning assessment and assess knowledge base. Outcome: Progressing Problem: Potential for Falls Goal: Patient will remain free of falls Description: Assess and monitor vitals signs, neurological status including level of consciousness and orientation. Reassess fall risk per hospital policy. Ensure arm band on, uncluttered walking paths in room, adequate room lighting, call light and overbed table within reach, bed in low position, wheels locked, side rails up per policy, and non-skid footwear provided. 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 * Plan of Care - Roger Branch RN - 09/27/2025 12:42 AM EDT Problem: Compromised Skin Integrity Goal: LTG - Patient will be free from infection Outcome: Progressing Goal: LTG - Patient will maintain/improve skin integrity through proper skin care techniques Outcome: Progressing Goal: LTG - Patient will demonstrate appropriate pressure relief techniques Outcome: Progressing Goal: LTG - Patient will demonstrate appropriate skin care techniques Outcome: Progressing Goal: LTG - Patient will be free from infection Outcome: Progressing Goal: STG - Patient demonstrates skin care/treatment/dressing change Outcome: Progressing Goal: STG - Patient will maintain good skin integrity Outcome: Progressing Goal: STG - Patient exhibits signs of wound healing. Outcome: Progressing Goal: STG - Patient demonstrates pressure reduction techniques Outcome: Progressing Goal: STG - Patient demonstrates preventative skin care measures Outcome: Progressing Problem: Knowledge Deficit Goal: Patient/family/caregiver demonstrates understanding of disease process, treatment plan, medications, and discharge instructions Description: Complete learning assessment and assess knowledge base. Outcome: Progressing Problem: Potential for Falls Goal: Patient will remain free of falls Description: Assess and monitor vitals signs, neurological status including level of consciousness and orientation. Reassess fall risk per hospital policy. Ensure arm band on, uncluttered walking paths in room, adequate room lighting, call light and overbed table within reach, bed in low position, wheels locked, side rails up per policy, and non-skid footwear provided. Outcome: Progressing * Plan of Care - Patel Rousseau RN - 09/26/2025 4:59 PM EDT Problem: Compromised Skin Integrity Goal: LTG - Patient will be free from infection Outcome: Progressing Goal: LTG - Patient will maintain/improve skin integrity through proper skin care techniques Outcome: Progressing Goal: LTG - Patient will demonstrate appropriate pressure relief techniques Outcome: Progressing Goal: LTG - Patient will demonstrate appropriate skin care techniques Outcome: Progressing Goal: LTG - Patient will be free from infection Outcome: Progressing Goal: STG - Patient demonstrates skin care/treatment/dressing change Outcome: Progressing Goal: STG - Patient will maintain good skin integrity Outcome: Progressing Goal: STG - Patient exhibits signs of wound healing. Outcome: Progressing Goal: STG - Patient demonstrates pressure reduction techniques Outcome: Progressing Goal: STG - Patient demonstrates preventative skin care measures Outcome: Progressing Problem: Knowledge Deficit Goal: Patient/family/caregiver demonstrates understanding of disease process, treatment plan, medications, and discharge instructions Description: Complete learning assessment and assess knowledge base. Outcome: Progressing Problem: Potential for Falls Goal: Patient will remain free of falls Description: Assess and monitor vitals signs, neurological status including level of consciousness and orientation. Reassess fall risk per hospital policy. Ensure arm band on, uncluttered walking paths in room, adequate room lighting, call light and overbed table within reach, bed in low position, wheels locked, side rails up per policy, and non-skid footwear provided. Outcome: Progressing * Plan of Care - Yina Parmar RN - 09/25/2025 10:00 PM EDT Problem: Compromised Skin Integrity Goal: LTG - Patient will be free from infection Outcome: Progressing Goal: LTG - Patient will maintain/improve skin integrity through proper skin care techniques Outcome: Progressing Goal: LTG - Patient will demonstrate appropriate pressure relief techniques Outcome: Progressing Goal: LTG - Patient will demonstrate appropriate skin care techniques Outcome: Progressing Goal: LTG - Patient will be free from infection Outcome: Progressing Goal: STG - Patient demonstrates skin care/treatment/dressing change Outcome: Progressing Goal: STG - Patient will maintain good skin integrity Outcome: Progressing Goal: STG - Patient exhibits signs of wound healing. Outcome: Progressing Goal: STG - Patient demonstrates pressure reduction techniques Outcome: Progressing Goal: STG - Patient demonstrates preventative skin care measures Outcome: Progressing Problem: Knowledge Deficit Goal: Patient/family/caregiver demonstrates understanding of disease process, treatment plan, medications, and discharge instructions Description: Complete learning assessment and assess knowledge base. Outcome: Progressing Problem: Potential for Falls Goal: Patient will remain free of falls Description: Assess and monitor vitals signs, neurological status including level of consciousness and orientation. Reassess fall risk per hospital policy. Ensure arm band on, uncluttered walking paths in room, adequate room lighting, call light and overbed table within reach, bed in low position, wheels locked, side rails up per policy, and non-skid footwear provided. Outcome: Progressing * Plan of Care - Patel Rousseau RN - 09/25/2025 6:37 PM EDT Problem: Compromised Skin Integrity Goal: LTG - Patient will be free from infection Outcome: Progressing Goal: LTG - Patient will maintain/improve skin integrity through proper skin care techniques Outcome: Progressing Goal: LTG - Patient will demonstrate appropriate pressure relief techniques Outcome: Progressing Goal: LTG - Patient will demonstrate appropriate skin care techniques Outcome: Progressing Goal: LTG - Patient will be free from infection Outcome: Progressing Goal: STG - Patient demonstrates skin care/treatment/dressing change Outcome: Progressing Goal: STG - Patient will maintain good skin integrity Outcome: Progressing Goal: STG - Patient exhibits signs of wound healing. Outcome: Progressing Goal: STG - Patient demonstrates pressure reduction techniques Outcome: Progressing Goal: STG - Patient demonstrates preventative skin care measures Outcome: Progressing Problem: Knowledge Deficit Goal: Patient/family/caregiver demonstrates understanding of disease process, treatment plan, medications, and discharge instructions Description: Complete learning assessment and assess knowledge base. Outcome: Progressing Problem: Potential for Falls Goal: Patient will remain free of falls Description: Assess and monitor vitals signs, neurological status including level of consciousness and orientation. Reassess fall risk per hospital policy. Ensure arm band on, uncluttered walking paths in room, adequate room lighting, call light and overbed table within reach, bed in low position, wheels locked, side rails up per policy, and non-skid footwear provided. Outcome: Progressing * Plan of Care - Chacha Savage - 09/25/2025 2:10 AM EDT Problem: Compromised Skin Integrity Goal: LTG - Patient will be free from infection Outcome: Progressing Goal: LTG - Patient will maintain/improve skin integrity through proper skin care techniques Outcome: Progressing Goal: LTG - Patient will demonstrate appropriate pressure relief techniques Outcome: Progressing Goal: LTG - Patient will demonstrate appropriate skin care techniques Outcome: Progressing Goal: LTG - Patient will be free from infection Outcome: Progressing Goal: STG - Patient demonstrates skin care/treatment/dressing change Outcome: Progressing Goal: STG - Patient will maintain good skin integrity Outcome: Progressing Goal: STG - Patient exhibits signs of wound healing. Outcome: Progressing Goal: STG - Patient demonstrates pressure reduction techniques Outcome: Progressing Goal: STG - Patient demonstrates preventative skin care measures Outcome: Progressing documented in this encounter Plan of Treatment Upcoming Encounters Date Type Department Care Team (Late st Contact Info) Description 12/11/2025 10:00 AM EST Office Visit [facility] Neurology - [address] [address] Arline Wilson APRN [address] [facility] [address] [place] [address] documented as of this encounter Procedures Procedure Name Priority Date/Time Associated Diagnosis Comments VITAMIN D, 25-HYDROXY Routine 09/27/2025 11:50 AM EST AMMONIA Routine 09/27/2025 11:49 AM EST NOVA GLUCOSE POC Routine 09/27/2025 10:5 4 AM EST NOVA GLUCOSE POC Routine 09/27/2025 5:49 AM EST CBC W/ AUTO DIFF Routine 09/27/2025 3:11 AM EST TSH Add-On 09/27/2025 3:11 AM EST VITAMIN B12 Add-On 09/27/2025 3:11 AM EST BASIC METABOLIC PANEL Routine 09/27/2025 3:11 AM EST NOVA GLUCOSE POC Routine 09/26/2025 7:47 PM EDT NOVA GLUCOSE POC Routine 09/26/2025 4:05 PM EDT NOVA GLUCOSE POC Routine 09/26/2025 10:2 9 AM EDT CBC W/ AUTO DIFF Routine 09/26/2025 3:39 AM EDT BASIC METABOLIC PANEL Routine 09/26/2025 3:39 AM EDT NOVA GLUCOSE POC Routine 09/25/2025 7:56 PM EDT NOVA GLUCOSE POC Routine 09/25/2025 3:56 PM EDT NOVA GLUCOSE POC Routine 09/25/2025 10:4 0 AM EDT CBC HEMOGRAM (SJ-BKR) Routine 09/25/2025 3:23 AM EDT COMPREHENSIVE METABOLIC PANEL Routine 09/25/2025 3:23 AM EDT FS_MODEL_IP_ECG 12-LEAD STAT 09/25/2025 12:11 AM EDT EKG-SCANNED 09/24/2025 documented in this encounter Results * Vitamin D, 25-Hydroxy (09/27/2025 11:50 AM EST) Pathologist [facility] Vitamin D 25-Hydroxy 41.2 30 - 80 ng/mL 09/27/2025 12:53 PM EST [facility] Blood Venipuncture / Unknown 09/27/2025 11:50 AM EST 09/27/2025 12:13 PM EST us Reza Thrasher MD LAB BLOOD ORDERABLES Final Result [facility] [address] [phone] * Ammonia (09/27/2025 11:49 AM EST) Ammonia 21 18 - 72 mol/L 09/27/2025 12:27 PM EST [facility] Blood Venipuncture / Unknown 09/27/2025 11:49 AM EST 09/27/2025 12:13 PM EST us Reza Thrasher MD LAB BLOOD ORDERABLES Final Result Performing Organization Address [facility]/ZIP Co de Phone Number [facility] [address] [phone] * Glucose, Nova Meter (09/27/2025 10:54 AM EST) POC-GLUCOSE 103 70 - 110 mg/dL 09/27/2025 11:02 AM EST [facility] Comment:In the event of poor peripheral blood flow, venous or arterial blood should be used due to the potential of erroneous results. Technology Manager [phone] 09/27/2025 11:02 AM EST [facility] Blood WHOLE BLOOD / Unknown 09/27/2025 10:54 AM EST 09/27/2025 11:02 AM EST Narrative [facility] - 09/27/2025 11:02 AM EST Notified RN/MD us Cas Andino MD POINT OF CARE TEST ORDERABLES Final Result Performing Organization Address [facility] Co de Phone Number [facility] [address] [phone] * (ABNORMAL) Glucose, Nova Meter (09/27/2025 5:49 AM EST) POC-GLUCOSE 123(H) 70 - 110 mg/dL 09/27/2025 5:57 AM EST [facility] Comment:In the event of poor peripheral blood flow, venous or arterial blood should be used due to the potential of erroneous results. Technology Manager [phone] 09/27/2025 5:57 AM EST [facility] Blood WHOLE BLOOD / Unknown 09/27/2025 5:49 AM EST 09/27/2025 5:57 AM EST Narrative [facility] - 09/27/2025 5:57 AM EST Notified RN/MD us Cas Andino MD POINT OF CARE TEST ORDERABLES Final Result Performing Organization Address [facility] Co de Phone Number [facility] [address] [phone] * (ABNORMAL) TSH (09/27/2025 3:11 AM EST) TSH 6.528(H) 0.350 - 4.940 uIU/mL 09/27/2025 11:43 AM EST [facility] Blood Venipuncture / Unknown 09/27/2025 3:11 AM EST 09/27/2025 3:47 AM EST us Reza Thrasher MD LAB BLOOD ORDERABLES Final Result Performing Organization Address [facility] Co nd Phone Number [facility] [address] [phone] * Vitamin B12 (09/27/2025 3:11 AM EST) Vitamin B12 671 213 - 816 pg/mL 09/27/2025 11:43 AM EST [facility] Blood Venipuncture / Unknown 09/27/2025 3:11 AM EST 09/27/2025 3:47 AM EST us Reza Thrasher MD LAB BLOOD ORDERABLES Final Result Performing Organization Address [facility] Co de Phone Number [facility] [address] [phone] * (ABNORMAL) CBC with Automated Diff (09/27/2025 3:11 AM EST) WBC 10.9(H) 4.0 - 10.0 K/ L 09/27/2025 3:52 AM EST [facility] RBC 4.19 3.93 - 5.22 M/ L 09/27/2025 3:52 AM [facility] Hemoglobin 11.4 11.2 - 15.7 GM/DL 09/27/2025 3:52 AM [facility] Hematocrit 36.3 34.1 - 44.9 % 09/27/2025 3:52 AM [facility] MCV 87 79 - 95 fL 09/27/2025 3:52 AM [facility] MCH 27.2 25.6 - 32.2 pg 09/27/2025 3:52 AM [facility] MCHC 31.4(L) 32.2 - 35.5 GM/DL 09/27/2025 3:52 AM [facility] RDW 13.5 11.7 - 14.4 % 09/27/2025 3:52 AM [facility] Platelets 209 140 - 375 K/CU MM 09/27/2025 3:52 AM [facility] MPV 11.8 9.4 - 12.3 fL 09/27/2025 3:52 AM [facility] % Neutros 59 34 - 71 % 09/27/2025 3:52 AM [facility] % Lymphs 25 19 - 52 % 09/27/2025 3:52 AM [facility] % Monos 10 5 - 13 % 09/27/2025 3:52 AM [facility] % Eos 4.5 1.0 - 6.0 % 09/27/2025 3:52 AM [facility] % Baso 1 0 - 1 % 09/27/2025 3:52 AM [facility] NRBC Absolute <0.01 0 - 0.012 K/ul 09/27/2025 3:52 AM [facility] # Neutros 6.40(H) 1.56 - 6.13 K/ L 09/27/2025 3:52 AM [facility] # Lymphs 2.67 1.18 - 3.74 K/ L 09/27/2025 3:52 AM [facility] # Monos 1.09(H) 0.24 - 0.86 K/ L 09/27/2025 3:52 AM [facility] # Eos 0.49(H) 0.04 - 0.36 K/ L 09/27/2025 3:52 AM EST [facility] # Baso 0.07 0.01 - 0.08 K/ L 09/27/2025 3:52 AM EST [facility] % Imm Grans 1.60(H) 0.01 - 0.43 % 09/27/2025 3:52 AM [facility] # IG 0.17(H) 0.00 - 0.03 K/uL 09/27/2025 3:52 AM EST [facility] Blood Venipuncture / Unknown 09/27/2025 3:11 AM EST 09/27/2025 3:48 AM EST [facility] - 09/27/2025 3:52 AM EST When CBC w/ Auto Diff is ordered the lab will add a Manual Differential as a quality check at no additional charge if: Lymphocytes greater than seventy five percent with normal or increased WBC Monocytes greater than Fifteen percent Basophil greater than four percent Bands >10% or several immature myeloids are seen on scan Blast? Flag noted Atypical Lymph flag noted us Cas Andino MD LAB BLOOD ORDERABLES Final Re sult [facility] [address] [phone] * (ABNORMAL) Basic Metabolic Panel (09/27/2025 3:11 AM EST) Sodium 141 136 - 145 meq/L 09/27/2025 4:12 AM [facility] Potassium 3.7 3.4 - 5.1 meq/L 09/27/2025 4:12 AM [facility] CO2 26 22 - 29 meq/L 09/27/2025 4:12 AM [facility] Chloride 105 98 - 112 meq/L 09/27/2025 4:12 AM [facility] Glucose 113(H) 74 - 100 mg/dL 09/27/2025 4:12 AM [facility] BUN 13.4 9.8 - 20.1 mg/dL 09/27/2025 4:12 AM [facility] Creatinine 0.66 0.50 - 1.10 mg/dL 09/27/2025 4:12 AM [facility] BUN/Creatinine 20 8 - 20 09/27/2025 4:12 AM [facility] Calcium 8.5 8.4 - 10.2 mg/dL 09/27/2025 4:12 AM [facility] Anion Gap 14(H) 4 - 12 09/27/2025 4:12 AM [facility] eGFR (mL/min/1.73m2) 103 >=60 mL/min/1.7 3m2 09/27/2025 4:12 AM [facility] Comment:ESTIMATED GFR IS NOT ACCURATE CREATININE CLEARANCE IN PREDICTING GLOMERULAR FILTRATION RATE. ESTIMATED GFR IS NOT APPLICABLE FOR DIALYSIS PATIENTS. Osmolality Calc 282.3 mOsm/kg 4:12 AM [facility] Blood Venipuncture / Unknown 09/27/2025 3:11 AM EST 09/27/2025 3:47 AM EST us Cas Andino MD LAB BLOOD ORDERABLES Final Re sult [facility] [address] [place] [address] * Glucose, Nova Meter (09/26/2025 7:47 PM EDT) [facility] POC-GLUCOSE 110 70 - 110 mg/dL 09/26/2025 8:07 PM EDT [facility] Comment:In the event of poor peripheral blood flow, venous or arterial blood should be used due to the potential of erroneous results. Technology Manager [phone] 09/26/2025 8:07 PM EDT [facility] Blood WHOLE BLOOD / Unknown 09/26/2025 7:47 PM EDT 09/26/2025 8:07 PM EDT Narrative [facility] - 09/26/2025 8:07 PM EDT Notified RN/MD us Cas Andino MD POINT OF CARE TEST ORDERABLES Final Result [facility] [address] [place] [address], [facility] [phone] * (ABNORMAL) Glucose, Nova Meter (09/26/2025 4:05 PM EDT) POC-GLUCOSE 137(H) 70 - 110 mg/dL 09/26/2025 4:25 PM EDT [facility] Comment:In the event of poor peripheral blood flow, venous or arterial blood should be used due to the potential of erroneous results. Technology Manager [phone] 09/26/2025 4:25 PM EDT [facility] Blood WHOLE BLOOD / Unknown 09/26/2025 4:05 PM EDT 09/26/2025 4:25 PM EDT us Cas Andino MD POINT OF CARE TEST ORDERABLES Final Result Performing Organization Address [facility] Co de Phone Number [facility] [address] [phone] * Glucose, Nova Meter (09/26/2025 10:29 AM EDT) [facility] POC-GLUCOSE 91 70 - 110 mg/dL 09/26/2025 11:02 AM EDT [facility] Comment:In the event of poor peripheral blood flow, venous or arterial blood should be used due to the potential of erroneous results. Technology Manager [phone] 09/26/2025 11:02 AM EDT [facility] Blood WHOLE BLOOD / Unknown 09/26/2025 10:29 AM EDT 09/26/2025 11:02 AM EDT us Cas Andino MD POINT OF CARE TEST ORDERABLES Final Result Performing Organization Address [facility]/ZIP Co de Phone Number [facility] [address] [place] [address], [facility] [phone] * (ABNORMAL) CBC with Automated Diff (09/26/2025 3:39 AM EDT) WBC 8.5 4.0 - 10.0 K/ L 09/26/2025 4:07 AM EDT [facility] RBC 4.02 3.93 - 5.22 M/ L 09/26/2025 4:07 AM EDT [facility] Hemoglobin 11.1(L) 11.2 - 15.7 GM/DL 09/26/2025 4:07 AM EDT [facility] Hematocrit 34.7 34.1 - 44.9 % 09/26/2025 4:07 AM EDT [facility] MCV 86 79 - 95 fL 09/26/2025 4:07 AM EDT [facility] MCH 27.6 25.6 - 32.2 pg 09/26/2025 4:07 AM EDT [facility] MCHC 32.0(L) 32.2 - 35.5 GM/DL 09/26/2025 4:07 AM EDT [facility] RDW 13.6 11.7 - 14.4 % 09/26/2025 4:07 AM EDT [facility] Platelets 206 140 - 375 K/CU MM 09/26/2025 4:07 AM EDT [facility] MPV 12.0 9.4 - 12.3 fL 09/26/2025 4:07 AM EDT [facility] [facility] % Neutros 46 34 - 71 % 09/26/2025 4:07 AM EDT [facility] % Lymphs 34 19 - 52 % 09/26/2025 4:07 AM EDT [facility] % Monos 13 5 - 13 % 09/26/2025 4:07 AM EDT [facility] % Eos 4.5 1.0 - 6.0 % 09/26/2025 4:07 AM EDT [facility] % Baso 1 0 - 1 % 09/26/2025 4:07 AM EDT [facility] NRBC Absolute <0.01 0 - 0.012 K/ul 09/26/2025 4:07 AM EDT [facility] # Neutros 3.90 1.56 - 6.13 K/ L 09/26/2025 4:07 AM EDT [facility] # Lymphs 2.86 1.18 - 3.74 K/ L 09/26/2025 4:07 AM EDT [facility] # Monos 1.09(H) 0.24 - 0.86 K/ L 09/26/2025 4:07 AM EDT [facility] # Eos 0.38(H) 0.04 - 0.36 K/ L 09/26/2025 4:07 AM EDT [facility] # Baso 0.08 0.01 - 0.08 K/ L 09/26/2025 4:07 AM EDT [facility] % Imm Grans 1.70(H) 0.01 - 0.43 % 09/26/2025 4:07 AM EDT [facility] # IG 0.14(H) 0.00 - 0.03 K/uL 09/26/2025 4:07 AM EDT [facility] Blood Venipuncture / Unknown 09/26/2025 3:39 AM EDT 09/26/2025 4:01 AM EDT Narrative [facility] - 09/26/2025 4:07 AM EDT When CBC w/ Auto Diff is ordered the lab will add a Manual Differential as a quality check at no additional charge if: Lymphocytes greater than seventy five percent with normal or increased WBC Monocytes greater than Fifteen percent Basophil greater than four percent Bands >10% or several immature myeloids are seen on scan Blast? Flag noted Atypical Lymph flag noted us Cas Andino MD LAB BLOOD ORDERABLES Final Re sult [facility] [address] [phone] * (ABNORMAL) Basic Metabolic Panel (09/26/2025 3:39 AM EDT) Sodium 143 136 - 145 meq/L 09/26/2025 4:41 AM EDT [facility] Potassium 3.1(L) 3.4 - 5.1 meq/L 09/26/2025 4:41 AM EDT [facility] CO2 26 22 - 29 meq/L 09/26/2025 4:41 AM EDT [facility] Chloride 104 98 - 112 meq/L 09/26/2025 4:41 AM EDT [facility] Glucose 138(H) 74 - 100 mg/dL 09/26/2025 4:41 AM EDT [facility] BUN 14.0 9.8 - 20.1 mg/dL 09/26/2025 4:41 AM EDT [facility] Creatinine 0.86 0.50 - 1.10 mg/dL 09/26/2025 4:41 AM EDT [facility] BUN/Creatinine 16 8 - 20 09/26/2025 4:41 AM EDT [facility] Calcium 8.7 8.4 - 10.2 mg/dL 09/26/2025 4:41 AM T [facility] Anion Gap 16(H) 4 - 12 09/26/2025 4:41 AM T [facility] eGFR (mL/min/1.73m2) 79 >=60 mL/min/1.7 3m2 09/26/2025 4:41 AM EDT [facility] Comment:ESTIMATED GFR IS NOT ACCURATE CREATININE CLEARANCE IN PREDICTING GLOMERULAR FILTRATION RATE. ESTIMATED GFR IS NOT APPLICABLE FOR DIALYSIS PATIENTS. Osmolality Calc 287.6 mOsm/kg 4:41 AM [facility] Blood Venipuncture / Unknown 09/26/2025 3:39 AM EDT 09/26/2025 4:01 AM EDT us Cas Andino MD LAB BLOOD ORDERABLES Final Re sult [facility] [address] [phone] * (ABNORMAL) Glucose, Nova Meter (09/25/2025 7:56 PM EDT) POC-GLUCOSE 141(H) 70 - 110 mg/dL 09/25/2025 8:05 PM EDT [facility] Comment:In the event of poor peripheral blood flow, venous or arterial blood should be used due to the potential of erroneous results. Technology Manager [phone] 09/25/2025 8:05 PM EDT [facility] Blood WHOLE BLOOD / Unknown 09/25/2025 7:56 PM EDT 09/25/2025 8:05 PM EDT [facility] - 09/25/2025 8:05 PM EDT Notified RN/MD Cas Andino MD POINT OF CARE TEST ORDERABLES Final Result Performing Organization Address [facility] Co de Phone Number [facility] [address] [phone] * Glucose, Nova Meter (09/25/2025 3:56 PM EDT) POC-GLUCOSE 105 70 - 110 mg/dL 09/25/2025 4:05 PM EDT [facility] Comment:In the event of poor peripheral blood flow, venous or arterial blood should be used due to the potential of erroneous results. Technology Manager [phone] 09/25/2025 4:05 PM EDT [facility] Blood WHOLE BLOOD / Unknown 09/25/2025 3:56 PM EDT 09/25/2025 4:05 PM EDT [facility] - 09/25/2025 4:05 PM EDT Notified RN/MD us Cas Andino MD POINT OF CARE TEST ORDERABLES Final Result Performing Organization Address [facility] Co de Phone Number [facility] [address] [phone] * Glucose, Nova Meter (09/25/2025 10:40 AM EDT) POC-GLUCOSE 95 70 - 110 mg/dL 09/25/2025 10:50 AM EDT [facility] Comment:In the event of poor peripheral blood flow, venous or arterial blood should be used due to the potential of erroneous results. Technology Manager [phone] 09/25/2025 10:50 AM EDT [facility] Blood WHOLE BLOOD / Unknown 09/25/2025 10:40 AM EDT 09/25/2025 10:50 AM EDT Narrative [facility] - 09/25/2025 10:50 AM EDT Notified RN/MD Cas Andino MD POINT OF CARE TEST ORDERABLES Final Result [facility] [address] [place] [address], [facility] [phone] * (ABNORMAL) Comprehensive Metabolic Panel (09/25/2025 3:23 AM EDT) Sodium 142 136 - 145 meq/L 09/25/2025 4:41 AM EDT [facility] Potassium 3.0(L) 3.4 - 5.1 meq/L 09/25/2025 4:41 AM EDT [facility] Chloride 101 98 - 112 meq/L 09/25/2025 4:41 AM EDT [facility] CO2 27 22 - 29 meq/L 09/25/2025 4:41 AM EDT [facility] Calcium 9.2 8.4 - 10.2 mg/dL 09/25/2025 4:41 AM EDT [facility] Glucose 102(H) 74 - 100 mg/dL 09/25/2025 4:41 AM EDT [facility] BUN 15.8 9.8 - 20.1 mg/dL 09/25/2025 4:41 AM EDT [facility] Creatinine 0.91 0.50 - 1.10 mg/dL 09/25/2025 4:41 AM EDT [facility] BUN/Creatinine 17 8 - 20 09/25/2025 4:41 AM EDT [facility] eGFR (mL/min/1.73m2) 74 >=60 mL/min/1.7 3m2 09/25/2025 4:41 AM EDT [facility] Comment:ESTIMATED GFR IS NOT ACCURATE CREATININE CLEARANCE IN PREDICTING GLOMERULAR FILTRATION RATE. ESTIMATED GFR IS NOT APPLICABLE FOR DIALYSIS PATIENTS. Albumin 3.0(L) 3.5 - 5.0 g/dL 09/25/2025 4:41 AM EDT [facility] Alkaline Phosphatase 81 40 - 150 U/L 09/25/2025 4:41 AM EDT [facility] ALT 12 <55 U/L 09/25/2025 4:41 AM EDT [facility] AST 27 5 - 34 U/L 09/25/2025 4:41 AM EDT [facility] Total Bilirubin 0.2(L) 0.3 - 1.2 mg/dL 09/25/2025 4:41 AM EDT [facility] Protein, Total 5.7(L) 6.4 - 8.3 g/dL 09/25/2025 4:41 AM EDT [facility] Globulin 2.7 2.5 - 4.1 g/dL 09/25/2025 4:41 AM EDT [facility] Anion Gap 17(H) 4 - 12 09/25/2025 4:41 AM EDT [facility] A/G Ratio 1.1 0.7 - 1.9 09/25/2025 4:41 AM EDT [facility] Osmolality Calc 284.4 mOsm/kg 4:41 AM EDT [facility] Blood Venipuncture / Unknown 09/25/2025 3:23 AM EDT 09/25/2025 4:09 AM EDT us Leon Crouch PA-C LAB BLOOD ORDERABLES Final Res ult [facility] [address] [phone] * (ABNORMAL) CBC - Hemogram (SJ-BKR) (09/25/2025 3:23 AM EDT) WBC 6.8 4.0 - 10.0 K/ L 09/25/2025 4:12 AM EDT [facility] RBC 4.08 3.93 - 5.22 M/ L 09/25/2025 4:12 AM EDT [facility] Hemoglobin 11.1(L) 11.2 - 15.7 GM/DL 09/25/2025 4:12 AM EDT [facility] Hematocrit 34.9 34.1 - 44.9 % 09/25/2025 4:12 AM EDT [facility] MCV 86 79 - 95 fL 09/25/2025 4:12 AM EDT [facility] MCH 27.2 25.6 - 32.2 pg 09/25/2025 4:12 AM EDT [facility] MCHC 31.8(L) 32.2 - 35.5 GM/DL 09/25/2025 4:12 AM EDT [facility] RDW 13.5 11.7 - 14.4 % 09/25/2025 4:12 AM EDT [facility] Platelets 209 140 - 375 K/CU MM 09/25/2025 4:12 AM EDT [facility] MPV 11.8 9.4 - 12.3 fL 09/25/2025 4:12 AM EDT [facility] Blood Venipuncture / Unknown 09/25/2025 3:23 AM EDT 09/25/2025 4:08 AM EDT Leon Crouch PA-C LAB BLOOD ORDERABLES Final Res ult Performing Organization Address City/State/[facility] Co de Phone Number [facility] [address] [phone] * ECG 12 lead (09/25/2025 12:11 AM EDT) VENTRICULAR RATE EKG/MIN 71 BPM GE MUSE ATRIAL RATE (MCT) 71 BPM GE MUSE [place] Interval 142 ms GE MUSE QRS-INTERVAL (MSEC) 72 ms GE MUSE QT Interval 412 ms GE MUSE QTC Interval 447 ms GE MUSE P [place] 49 degrees GE MUSE R AXIS (MCT) 12 degrees GE MUSE T Wave [place] 41 degrees GE MUSE [place] Diagnosis Normal sinus rhythm Low voltage QRS Cannot rule out Anterior infarct , age undetermined Abnormal ECG No previous ECGs available Confirmed by Constantin Avilez ([id number]) on 10/02/2025 9:53:57 PM GE MUSE 09/25/2025 12:1 1 AM EDT 10/02/2025 9:53 PM EST Leon Crouch PA-C ECG ORDERABLES Final Result GE MUSE * EKG-SCANNED (09/24/2025) Narrative 09/24/2025 Ordered by an unspecified provider. us Default Scanning Provider SCAN ORDERS Final Result documented in this encounter Visit Diagnoses Diagnosis Altered mental status- Primary documented in this encounter Admitting Diagnoses Diagnosis Acute metabolic encephalopathy documented in this encounter Administered Medications Inactive Administered Medications - up to 3 most recent administrations Medication Order MAR Action Action Date Dose Rate Site acetaminophen (TYLENOL) tablet 1,000 mg 1,000 mg Every 6 hours PRN, oral, fever greater than or equal to 38C, mild pain (1-3) use first line, headache, Starting on Sun09/25/25 at 0001, Recommended maximum dose of acetaminophen is 4000 mg from all sources in 24 hours Given 09/26/2025 10:49 PM EDT 1,000 mg Given 09/26/2025 8:33 AM EDT 1,000 mg Given 09/25/2025 8:39 AM EDT 1,000 mg bacitracin zinc-polymyxin B (POLYSPORIN) 500-10,000 unit/gram ointment 1 application. topical, 2 times daily, First dose on Sun09/26/25 at 0900 Given 09/27/2025 9:00 AM EST 1 application. Given 09/26/2025 8:51 PM EDT 1 application. Given 09/26/2025 11:06 AM EDT 1 application. bisacodyL (DULCOLAX) suppository 10 mg 10 mg Daily as needed, rectal, constipation, Starting on 09/27/25 at 1120 budesonide (PULMICORT) nebulizer suspension 0.5 mg 0.5 mg 2 times daily (RT), nebulization, First dose on Sun09/25/25 at 0900, *RESPIRATORY THERAPY TREATMENT*, What is the respiratory therapy Modality? Small volume Nebulization Given 09/27/2025 9:46 AM EST 0.5 mg Given 09/26/2025 9:13 PM EDT 0.5 mg Given 09/26/2025 8:53 AM EDT 0.5 mg busPIRone (BUSPAR) tablet 15 mg 15 mg 2 times daily, oral, First dose on Sun09/25/25 at 0100 Given 09/27/2025 8:58 AM EST 15 mg Given 09/26/2025 8:51 PM EDT 15 mg Given 09/26/2025 8:33 AM EDT 15 mg dextrose 50% (D50W) injection 25 g 25 g Every 15 min PRN, intravenous, low blood glucose (specify value in prn comments), less than 41 mg/dL or 41-69 mg/dL and unable to take PO, Starting on Sun09/25/25 at 0036, Repeat blood glucose every 15 minutes until blood glucose greater than 70 mg/dL. Call Provider if not resolved after 2 treatments Repeat BS in 1 hour, retime for 1 hour after blood sugar greater than 70 mg/dL If less than 41: Repeat Finger stick within 5 minutes with same machine Send serum glucose level: Do not wait on lab to treat diazePAM (VALIUM) tablet 5 mg 5 mg Every 8 hours PRN, oral, anxiety, Starting on Sun09/25/25 at 0033 Given 09/27/2025 11:49 AM EST 5 mg Given 09/26/2025 9:56 PM EDT 5 mg Given 09/26/2025 11:09 AM EDT 5 mg docusate sodium (COLACE) capsule 100 mg 100 mg 2 times daily PRN, oral, constipation, Starting on Sun09/25/25 at 0001, Bowel Regimen - for prevention of constipation. Given 09/27/2025 11:49 AM EST 100 mg docusate sodium (COLACE) capsule 100 mg 100 mg 2 times daily, oral, First dose on Sun09/27/25 at 1200, * DO NOT CRUSH THIS DOSAGE FORM * DULoxetine (CYMBALTA) DR capsule 60 mg 60 mg Daily, oral, First dose on Sun09/25/25 at 0900, * DO NOT CRUSH THIS DOSAGE FORM * Given 09/27/2025 8:58 AM EST 60 mg Given 09/26/2025 8:34 AM EDT 60 mg Given 09/25/2025 8:39 AM EDT 60 mg furosemide (LASIX) tablet 40 mg 40 mg Daily, oral, First dose on Sun09/25/25 at 0900 Given 09/27/2025 8:58 AM EST 40 mg Given 09/26/2025 8:37 AM EDT 40 mg Given 09/25/2025 8:39 AM EDT 40 mg glucagon injection 1 mg 1 mg Every 15 min PRN, intraMUSCULAR, low blood glucose (specify value in prn comments), For Patients without IV access and blood glucose 41-69 mg/dL AND unable to take PO OR Less than 41 mg/dL, Starting on Sun09/25/25 at 0036, Caution: glucagon . Roll patient on their side when administering to prevent aspiration. Call Provider if not resolved after 2 treatments Repeat BS in 1 hour, retime for 1 hour after blood sugar greater than 70 mg/dL glucose chew tab 16 g 16 g Every 15 min PRN, oral, low blood glucose (specify value in prn comments), 41-69 mg/dL, Starting on Sun09/25/25 at 0036, For Patients who can take oral AND blood glucose 41-69 mg/dL Give 4 Tabs every 15 minutes. Recheck blood glucose every 15 minutes and repeat 15 grams of carbohydrates until blood glucose is above 70 mg/dL. Give Meal or Snack Call Provider if not resolved after 3 treatments Repeat BS in 1 hour, retime for 1 hour after blood sugar greater than 70 mg/dL hydrALAZINE (APRESOLINE) injection 5 mg 5 mg Every 6 hours PRN, intravenous, hypertension (sbp greater than 160), Starting on Sun09/25/25 at 0001, Hold if SBP < 100 mmHg, DBP < 50 mmHg, or patient is on pressor. Look-alike/Sound-alike medication insulin lispro (HUMALOG, ADMELOG) injection 0-12 Units 0-12 Units 4 times daily (before meals and nightly), subcutaneous, First dose on Sun09/25/25 at 0730, If Blood Sugar is less than 180 beteween [id number], DO NOT give corrective insulin unless otherwise ordered. Corrective Scale B 0 units for fingerstick blood glucose LESS than 140 mg/dL 2 units subcutaneously once for fingerstick blood glucose [140] - [180] mg/dL 4 units subcutaneously once for fingerstick blood glucose [181] - [220] mg/dL 6 units subcutaneously once for fingerstick blood glucose [221] - [260] mg/dL 8 units subcutaneously once for fingerstick blood glucose [261] - [300] mg/dL 10 units subcutaneously once for fingerstick blood glucose [301] - [350] mg/dL 12 units subcutaneously once for fingerstick blood glucose [351] - [400] mg/dL Notify provider of glucose levels LESS than [70] and GREATER than [400] ipratropium-albuteroL (DUO-NEB) 0.5 mg-3 mg(2.5 mg base)/3 mL nebulizer solution 3 mL 3 mL Every 6 hours PRN, nebulization, wheezing, Starting on Sun09/25/25 at 0019, RESPIRATORY THERAPY TREATMENT Protect from Light, What is the respiratory therapy Modality? Small volume Nebulization Given 09/25/2025 11:42 PM EDT 3 mLs Given 09/25/2025 8:41 AM EDT 3 mLs LORazepam (ATIVAN) injection 2 mg 2 mg As needed, intravenous, seizures, Starting on Sun09/25/25 at 0008, For 2 doses, Every 3 to 5 minutes as needed For IV Push administration, dilute with an equal volume of Sodium Chloride 0.9% or Sterile Water for Injection before administration. magnesium sulfate IVPB 2 g in sterile water 50 mL (premix) at 25 mL/hr, Administer over 120 Minutes, intravenous, Daily as needed, for magnesium level 1.3 to 1.7 mg/dL, Starting on Sun09/25/25 at 0001, If magnesium is replaced per protocol order, recheck 1 hour after replacement and the next morning. magnesium sulfate IVPB 2 g in sterile water 50 mL (premix) at 25 mL/hr, Administer over 120 Minutes, intravenous, 2 times daily PRN, for magnesium level less than 1.3 mg/dL, Starting on Sun09/25/25 at 0001, Total dose of 4 g for each low magnesium result. If magnesium is replaced per protocol order, recheck 1 hour after replacement and the next morning. melatonin tablet 5 mg 5 mg Every Night PRN, oral, insomnia, Starting on Sun09/25/25 at 0001 Given 09/26/2025 8:50 PM EDT 5 mg montelukast (SINGULAIR) tablet 10 mg 10 mg Every Night, oral, First dose on Sun09/25/25 at 2100 Given 09/26/2025 8:51 PM EDT 10 mg Given 09/25/2025 8:09 PM EDT 10 mg naloxone (NARCAN) injection 0.4 mg 0.4 mg As needed, intravenous, opioid reversal, Starting on Sun09/25/25 at 0050 ondansetron (ZOFRAN) injection 4 mg 4 mg Every 8 hours PRN, intravenous, nausea, vomiting, Starting on Sun09/25/25 at 0001, Give IV if patient is unable to take orally. 1st line If inadequate response within 60 minutes, proceed to next-line agent for same PRN reason or contact provider if no further options ordered. For IV push, give over 2 - 5 minutes. ondansetron (ZOFRAN-ODT) disintegrating tablet 4 mg 4 mg Every 8 hours PRN, oral, nausea, vomiting, Starting on Sun09/25/25 at 0001, 1st line. If inadequate response within 60 minutes, proceed to next-line agent for same PRN reason or contact provider if no further options ordered. pantoprazole (PROTONIX) EC tablet 40 mg 40 mg Daily, oral, First dose on Sun09/25/25 at 0900, * DO NOT CRUSH THIS DOSAGE FORM * Given 09/27/2025 8:58 AM EST 4 0 mg Given 09/26/2025 8:35 AM EDT 40 mg Given 09/25/2025 8:39 AM EDT 40 mg polyethylene glycol (GLYCOLAX) packet 17 g 17 g Daily, oral, First dose on Sun09/27/25 at 1200, DISSOLVE IN 8 OUNCES OF WATER, JUICE, SODA, COFFEE OR TEA Given 09/27/2025 11:50 AM EST 17 g potassium chloride (KLOR-CON) ER tablet 40 mEq 40 mEq 4 times daily PRN, oral, for potassium less than or EQUAL to 3.4 mmol/L, Starting on Sun09/25/25 at 0001, Do not crush KCl tablets. If potassium is replaced per protocol order, recheck potassium 2 hour after replacement and the next morning. Given 09/25/2025 8:39 AM EDT 40 m Eq potassium chloride (KLOR-CON) ER tablet 40 mEq 40 mEq Once, oral, On 09/26/25 at 0730, For 1 dose, DO NOT CRUSH THIS DOSAGE FORM Given 09/26/2025 8:34 AM EDT 40 mEq potassium chloride IVPB 10 mEq in 100 mL sterile water (premix) 10 mEq Every hour PRN, intravenous, Administer over 60 Minutes, for potassium less than or equal to 3.4 mmol/L, Starting on Sun09/25/25 at 0001, Total Dose 40 mEq, use only if unable to administer PO. Max Rate 10mEq/hr. If potassium is replaced per protocol order, recheck 1 hour after replacement and the next morning. pregabalin (LYRICA) capsule 100 mg 100 mg 2 times daily, oral, First dose on Sun09/25/25 at 0900 Given 09/27/2025 8:58 AM EST 100 mg Given 09/26/2025 8:50 PM EDT 100 mg Given 09/26/2025 8:33 AM EDT 100 mg sodium chloride flush 10 mL 10 mL As needed, intravenous, line care, Starting on Sun09/25/25 at 0000, Every 8 hours and PRN to flush documented in this encounter Active and Recently Administered Medications Due to Daylight Saving Time, this section may contain times in both EDT and EST. Scheduled Medication Order 09/25/2025 09/26/2025 09/27/2025 bacitracin zinc-polymyxin B (POLYSPORIN) 500-10,000 unit/gram ointment 1 application. topical, 2 times daily, First dose on Sun09/26/25 at 0900 1106 (Given - Provider: Patel Rousseau RN)2050 (Given - Provider: Roger Branch RN) 0900 (Given - Provider: Ata Ugalde, ESTEFANIA) budesonide (PULMICORT) nebulizer suspension 0.5 mg 0.5 mg 2 times daily (RT), nebulization, First dose on Sun09/25/25 at 0900, *RESPIRATORY THERAPY TREATMENT*, What is the respiratory therapy Modality? Small volume Nebulization 0841 (Given - Provider: Romario Joaquin, HOME CARE MUSIC THERAPIST)2026 (Given - Provider: Kristina Christopher) 0853 (Given - Provider: Pretty Hernandez, HOME CARE MUSIC THERAPIST)2112 (Given - Provider: Nita Hankins, AIR BAG BUFFER) 09 (Given - Provider: Zahira Paige, AIR BAG BUFFER) busPIRone (BUSPAR) tablet 15 mg 15 mg 2 times daily, oral, First dose on Sun09/25/25 at 0100 0438 (Not Given - Provider: Chacha Savage - Reason: Patient/family refused)0839 (Given - Provider: Patel Rousseau, ESTEFANIA)2008 (Given - Provider: Yina Parmar RN) 0833 (Given - Provider: Patel Rousseau RN)2050 (Given - Provider: Roger Branch RN) 0858 (Given - Provider: Ata Ugalde, RN) docusate sodium (COLACE) capsule 100 mg 100 mg 2 times daily, oral, First dose on Sun09/27/25 at 1200, * DO NOT CRUSH THIS DOSAGE FORM * 1156 (Not Given - Provider: Ata Ugalde, RN - Reason: Dose previously given) DULoxetine (CYMBALTA) DR capsule 60 mg 60 mg Daily, oral, First dose on Sun09/25/25 at 0900, * DO NOT CRUSH THIS DOSAGE FORM * 0839 (Given - Provider: Patel Rousseau RN) 0834 (Given - Provider: Patel Rousseau RN) 0858 (Given - Provider: Ata Ugalde, ESTEFANIA) furosemide (LASIX) tablet 40 mg 40 mg Daily, oral, First dose on Sun09/25/25 at 0900 0839 (Given - Provider: Patel Rousseau RN) 0837 (Given - Provider: Patel Rousseau RN) 0858 (Given - Provider: Ata Ugalde, RN) insulin lispro (HUMALOG, ADMELOG) injection 0-12 Units 0-12 Units 4 times daily (before meals and nightly), subcutaneous, First dose on Sun09/25/25 at 0730, If Blood Sugar is less than 180 beteween [id number], DO NOT give corrective insulin unless otherwise ordered. Corrective Scale B 0 units for fingerstick blood glucose LESS than 140 mg/dL 2 units subcutaneously once for fingerstick blood glucose [140] - [180] mg/dL 4 units subcutaneously once for fingerstick blood glucose [181] - [220] mg/dL 6 units subcutaneously once for fingerstick blood glucose [221] - [260] mg/dL 8 units subcutaneously once for fingerstick blood glucose [261] - [300] mg/dL 10 units subcutaneously once for fingerstick blood glucose [301] - [350] mg/dL 12 units subcutaneously once for fingerstick blood glucose [351] - [400] mg/dL Notify provider of glucose levels LESS than [70] and GREATER than [400] 0840 (Not Given - Provider: Patel Rousseau RN - Reason: Order parameters not met)1356 (Not Given - Provider: Patel Rousseau RN - Reason: Order parameters not met)1719 (Not Given - Provider: Patel Rousseau RN - Reason: Order parameters not met)2000 (Not Given - Provider: Yina Parmar RN - Reason: Order parameters not met) 0646 (Not Given - Provider: Yina Parmar RN - Reason: Order parameters not met)1142 (Not Given - Provider: Patel Rousseau RN - Reason: Order parameters not met)1644 (Not Given - Provider: Patel Rousseau RN - Reason: Order parameters not met)2010 (Not Given - Provider: Roger Branch RN - Reason: Order parameters not met) 0641 (Not Given - Provider: Roger Branch RN - Reason: Order parameters not met)1131 (Not Given - Provider: Ata Ugalde RN - Reason: VS / Lab Parameters not met)1630 (Due) LORazepam (ATIVAN) injection 0.5 mg 0.5 mg Once, intravenous, On Sun09/27/25 at 1200, For 1 dose, For IV Push administration, dilute with an equal volume of Sodium Chloride 0.9% or Sterile Water for Injection before administration. 1307 (Not Given - Provider: Ata Ugalde RN - Reason: Patient/family refused) montelukast (SINGULAIR) tablet 10 mg 10 mg Every Night, oral, First dose on Sun09/25/25 at 2100 2008 (Given - Provider: Yina Parmar RN) 2050 (Given - Provider: Roger Branch RN) pantoprazole (PROTONIX) EC tablet 40 mg 40 mg Daily, oral, First dose on Sun09/25/25 at 0900, * DO NOT CRUSH THIS DOSAGE FORM * 0839 (Given - Provider: Patel Rousseau RN) 0835 (Given - Provider: Patel Rousseau RN) 0858 (Given - Provider: Ata Ugalde RN) polyethylene glycol (GLYCOLAX) packet 17 g 17 g Daily, oral, First dose on 09/27/25 at 1200, DISSOLVE IN 8 OUNCES OF WATER, JUICE, SODA, COFFEE OR TEA 1150 (Given - Provider: Ata Ugalde RN) potassium chloride (KLOR-CON) ER tablet 40 mEq (COMPLETED) 40 mEq Once, oral, On 09/26/25 at 0730, For 1 dose, DO NOT CRUSH THIS DOSAGE FORM 0834 (Given - Provider: Patel Rousseau RN) pregabalin (LYRICA) capsule 100 mg 100 mg 2 times daily, oral, First dose on Sun09/25/25 at 0900 0839 (Given - Provider: Patel Rousseau RN)2008 (Given - Provider: Yina Parmar RN) 0833 (Given - Provider: Patel Rousseau RN)2049 (Given - Provider: Roger Branch RN) 0858 (Given - Provider: Ata Ugalde RN) PRN Medication Order 09/25/2025 09/26/2025 09/27/2025 acetaminophen (TYLENOL) tablet 1,000 mg 1,000 mg Every 6 hours PRN, oral, fever greater than or equal to 38C, mild pain (1-3) use first line, headache, Starting on Sun09/25/25 at 0001, Recommended maximum dose of acetaminophen is 4000 mg from all sources in 24 hours 0839 (Given - Provider: Patel Rousseau RN) 0833 (Given - Provider: Patel Rousseau RN)2249 (Given - Provider: Roger Branch RN) bisacodyL (DULCOLAX) suppository 10 mg 10 mg Daily as needed, rectal, constipation, Starting on Sun09/27/25 at 1120 dextrose 50% (D50W) injection 25 g 25 g Every 15 min PRN, intravenous, low blood glucose (specify value in prn comments), less than 41 mg/dL or 41-69 mg/dL and unable to take PO, Starting on Sun09/25/25 at 0036, Repeat blood glucose every 15 minutes until blood glucose greater than 70 mg/dL. Call Provider if not resolved after 2 treatments Repeat BS in 1 hour, retime for 1 hour after blood sugar greater than 70 mg/dL If less than 41: Repeat Finger stick within 5 minutes with same machine Send serum glucose level: Do not wait on lab to treat diazePAM (VALIUM) tablet 5 mg 5 mg Every 8 hours PRN, oral, anxiety, Starting on Sun09/25/25 at 0033 1035 (Given - Provider: Patel Rousseau RN) 0018 (Given - Provider: Yina Parmar RN)1109 (Given - Provider: Patel Sah, RN)2156 (Given - Provider: Roger Branch, RN) 1149 (Given - Provider: Ata Ugalde, RN) docusate sodium (COLACE) capsule 100 mg 100 mg 2 times daily PRN, oral, constipation, Starting on Sun09/25/25 at 0001, Bowel Regimen - for prevention of constipation. 1149 (Given - Provider: Ata Ugalde, RN) glucagon injection 1 mg 1 mg Every 15 min PRN, intraMUSCULAR, low blood glucose (specify value in prn comments), For Patients without IV access and blood glucose 41-69 mg/dL AND unable to take PO OR Less than 41 mg/dL, Starting on Sun09/25/25 at 0036, Caution: glucagon . Roll patient on their side when administering to prevent aspiration. Call Provider if not resolved after 2 treatments Repeat BS in 1 hour, retime for 1 hour after blood sugar greater than 70 mg/dL glucose chew tab 16 g 16 g Every 15 min PRN, oral, low blood glucose (specify value in prn comments), 41-69 mg/dL, Starting on Sun09/25/25 at 0036, For Patients who can take oral AND blood glucose 41-69 mg/dL Give 4 Tabs every 15 minutes. Recheck blood glucose every 15 minutes and repeat 15 grams of carbohydrates until blood glucose is above 70 mg/dL. Give Meal or Snack Call Provider if not resolved after 3 treatments Repeat BS in 1 hour, retime for 1 hour after blood sugar greater than 70 mg/dL hydrALAZINE (APRESOLINE) injection 5 mg 5 mg Every 6 hours PRN, intravenous, hypertension (sbp greater than 160), Starting on Sun09/25/25 at 0001, Hold if SBP < 100 mmHg, DBP < 50 mmHg, or patient is on pressor. Look-alike/Sound-alike medication ipratropium-albuteroL (DUO-NEB) 0.5 mg-3 mg(2.5 mg base)/3 mL nebulizer solution 3 mL 3 mL Every 6 hours PRN, nebulization, wheezing, Starting on Sun09/25/25 at 0019, RESPIRATORY THERAPY TREATMENT Protect from Light, What is the respiratory therapy Modality? Small volume Nebulization 0841 (Given - Provider: Romario Joaquin, MADISON)9025 (Given - Provider: Kristina Christopher) LORazepam (ATIVAN) injection 2 mg 2 mg As needed, intravenous, seizures, Starting on Sun09/25/25 at 0008, For 2 doses, Every 3 to 5 minutes as needed For IV Push administration, dilute with an equal volume of Sodium Chloride 0.9% or Sterile Water for Injection before administration. magnesium sulfate IVPB 2 g in sterile water 50 mL (premix) at 25 mL/hr, Administer over 120 Minutes, intravenous, Daily as needed, for magnesium level 1.3 to 1.7 mg/dL, Starting on Sun09/25/25 at 0001, If magnesium is replaced per protocol order, recheck 1 hour after replacement and the next morning. magnesium sulfate IVPB 2 g in sterile water 50 mL (premix) at 25 mL/hr, Administer over 120 Minutes, intravenous, 2 times daily PRN, for magnesium level less than 1.3 mg/dL, Starting on Sun09/25/25 at 0001, Total dose of 4 g for each low magnesium result. If magnesium is replaced per protocol order, recheck 1 hour after replacement and the next morning. melatonin tablet 5 mg 5 mg Every Night PRN, oral, insomnia, Starting on Sun09/25/25 at 0001 2050 (Given - Provider: Roger Branch, RN) naloxone (NARCAN) injection 0.4 mg 0.4 mg As needed, intravenous, opioid reversal, Starting on Sun09/25/25 at 0050 ondansetron (ZOFRAN) injection 4 mg(Linked Group 1) 4 mg Every 8 hours PRN, intravenous, nausea, vomiting, Starting on Sun09/25/25 at 0001, Give IV if patient is unable to take orally. 1st line If inadequate response within 60 minutes, proceed to next-line agent for same PRN reason or contact provider if no further options ordered. For IV push, give over 2 - 5 minutes. ondansetron (ZOFRAN-ODT) disintegrating tablet 4 mg(Linked Group 1) 4 mg Every 8 hours PRN, oral, nausea, vomiting, Starting on Sun09/25/25 at 0001, 1st line. If inadequate response within 60 minutes, proceed to next-line agent for same PRN reason or contact provider if no further options ordered. potassium chloride (KLOR-CON) ER tablet 40 mEq 40 mEq 4 times daily PRN, oral, for potassium less than or EQUAL to 3.4 mmol/L, Starting on Sun09/25/25 at 0001, Do not crush KCl tablets. If potassium is replaced per protocol order, recheck potassium 2 hour after replacement and the next morning. 0839 (Given - Provider: Patel Rousseau RN) potassium chloride IVPB 10 mEq in 100 mL sterile water (premix) 10 mEq Every hour PRN, intravenous, Administer over 60 Minutes, for potassium less than or equal to 3.4 mmol/L, Starting on Sun09/25/25 at 0001, Total Dose 40 mEq, use only if unable to administer PO. Max Rate 10mEq/hr. If potassium is replaced per protocol order, recheck 1 hour after replacement and the next morning. sodium chloride flush 10 mL(Linked Group 2) 10 mL As needed, intravenous, line care, Starting on Sun09/25/25 at 0000, Every 8 hours and PRN to flush Linked Groups Order Group 1: ondansetron (ZOFRAN-ODT) disintegrating tablet 4 mgJump to med 4 mg Every 8 hours PRN, oral, nausea, vomiting, Starting on Sun09/25/25 at 0001, 1st line. If inadequate response within 60 minutes, proceed to next-line agent for same PRN reason or contact provider if no further options ordered. Or ondansetron (ZOFRAN) injection 4 mgJump to med 4 mg Every 8 hours PRN, intravenous, nausea, vomiting, Starting on Sun09/25/25 at 0001, Give IV if patient is unable to take orally. 1st line If inadequate response within 60 minutes, proceed to next-line agent for same PRN reason or contact provider if no further options ordered. For IV push, give over 2 - 5 minutes. Group 2: Insert Peripheral IV (CANCELED) STAT, Once, On Sun09/25/25 at 0001, For 1 occurrence And Saline Lock IV (CANCELED) Routine, Once, On Sun09/25/25 at 0001, For 1 occurrence And sodium chloride flush 10 mLJump to med 10 mL As needed, intravenous, line care, Starting on Sun09/25/25 at 0000, Every 8 hours and PRN to flush documented in this encounter Care Teams Creative Strategist Relationship Specialty Start Date End Date Arline Mathias PA-C [address] [address] PCP - General Physician Community Center Coordinator 09/24/25 09/27/25 documented as of this encounter
--- OUTSIDE RECORDS SUMMARY | 2025-11-09 09:00 | XMS_ITS | Encounter Summary ---
[facility] [address] [place] [address] Care Team Providers Care Systems Accountant Name Role Phone Mark Sorensen PA-C Primary Care Provider [phone]- [phone] Reason for Referral * Diagnostic Imaging (Routine) - Closed Specialty Diagnoses / Procedures Referred By Contac t Referred To Contact Diagnoses Encounter for screening mammogram for malignant neoplasm of breast Procedures Mammo Screening Digital Tomosynthesis Bilateral With CAD Caroline Herrera APRN [address] [facility] [address] [place] [address] Phone: tel: fax: [facility] [address] [place] [address] Phone: tel: Referral ID Status Reason Start Date Expiration Date Visits Re quested Visits Authorized [id number] Closed 11/09/2025 02/08/2027 1 1 * Diagnostic Medical (Routine) - Authorized Specialty Diagnoses / Procedures Referred By Contact Referred To Contact Gastroenterology Diagnoses Screening for colon cancer Procedures FL OFFICE/OUTPATIENT NEW MODERATE MDM 45 MINUTES Caroline Herrera APRN [address] [facility] [address] [place] [address] Phone: tel: fax: [facility] [address] [facility] [address] [place] [address] Phone: tel: fax: Referral ID Status Reason Start Date Expiration Date Visits Requested Visits Authorized [id number] Authorized Specialty Services Required 02/08/2027 1 1 Reason for Visit * Reason Comments Gynecologic Exam Encounter Details Date Type Department Care Team (Late st Contact Info) Description 11/09/2025 9:00 AM EST Office Visit [facility] O[facility] [address] [place] [address] Caroline Herrera APRN [address] [facility] [address] [place] [address] Women's annual routine gynecological examination (Primary Dx); Encounter for gynecological examination without abnormal finding; Screening for colon cancer; Encounter for screening mammogram for malignant neoplasm of breast Social History Tobacco Use Types Packs/Day Years Used Date Smoking Tobacco: Former Cigarettes Smokeless Tobacco: Never Tobacco Cessation:Counseling Given: Not Answered Comments:Vaping Alcohol Use Standard Drinks/Week Comments Not Currently 0 (1 standard drink = 0.6 oz pur e alcohol) light Comments No Sex and Gender Information Value Date Recorded Sex Assigned at Not on file Legal Sex Female 1:31 PM EDT Gender Identity Not on file Sexual Orientation Not on file 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 Gynecologic Annual Exam Note SUPERVISOR TOY ASSEMBLY Annual Exam CC - Here for annual exam. HPI Coretta Moctezuma is a 55 y.o. female, , who presents for annual well woman exam as a establishedpatient. She is s/p TVH in 2008 for abnormal cervical cells. Ovaries remain. Denies vaginal bleeding. There were no changes to her medical or surgical history since her last visit. Marital Status: single. She is not currently sexually active. STD testing recommendations have been explained to the patient and she declines STD testing. The patient would like to discuss the following complaints today: none Additional AGENTS' RECORDS CLERK History On HRT? Yes. Details: Estradiol cream Last Pap : 11/07/2021. Results: negative. HPV: N/A. Last Completed Pap Smear This patient has no relevant Health Maintenance data. History of abnormal Pap smear: yes - cervical dysplasia Family history of uterine, colon, breast, or ovarian cancer: yes - father had colon cancer Performs monthly Self-Breast Exam: yes Last mammogram: 05/2025. Done at [facility]. There is not a copy in the chart. Requested Last Completed Mammogram This patient has no relevant Health Maintenance data. Last colonoscopy: has had a colonoscopy 7 years ago Last Completed Colonoscopy Needs Review COLORECTAL CANCER SCREENING (COLONOSCOPY - Every 10 Years) Tentatively due on 02/25/2028 11/09/2025 Order placed for Ambulatory Referral For Screening Colonoscopy by Caroline Herrera APRN 02/24/2018 Outside Procedure: COLONOSCOPY 11/26/2017 COLONOSCOPY (Done - [facility]; negative) She has never had a bone density scan Exercises Regularly: no Feelings of Anxiety or Depression: yes - Patient takes Ambien, Buspar, cymbalta Tobacco Usage?: No Current Outpatient Medications: busPIRone (BUSPAR) 10 MG tablet, , Disp: , Rfl: carvedilol (COREG) 6.25 MG tablet, Take 1 tablet by mouth 2 (Two) Times a Day. as directed, Disp: ,Rfl: cetirizine (zyrTEC) 10 MG tablet, , Disp: , Rfl: DULoxetine (CYMBALTA) 30 MG capsule, TAKE 1 CAPSULE BY MOUTH EVERY DAY IN THE MORNING FOR MOOD, Disp: , Rfl: escitalopram (LEXAPRO) 20 MG tablet, Take 1 tablet by mouth Daily., Disp: , Rfl: famotidine (PEPCID) 40 MG tablet, , Disp: , Rfl: fluticasone (FLONASE) 50 MCG/ACT nasal spray, , Disp: , Rfl: ipratropium-albuterol (DUO-NEB) 0.5-2.5 mg/3 ml nebulizer, , Disp: , Rfl: metFORMIN (GLUCOPHAGE) 500 MG tablet, , Disp: , Rfl: montelukast (SINGULAIR) 10 MG tablet, Take 1 tablet by mouth Every Evening., Disp: , Rfl: pantoprazole (PROTONIX) 40 MG EC tablet, , Disp: , Rfl: pravastatin (PRAVACHOL) 40 MG tablet, , Disp: , Rfl: pregabalin (LYRICA) 300 MG capsule, , Disp: , Rfl: ProAir HFA 108 (90 Base) MCG/ACT inhaler, , Disp: , Rfl: Trelegy Ellipta 100-62.5-25 MCG/ACT inhaler, , Disp: , Rfl: zolpidem (AMBIEN) 10 MG tablet, Take 1 tablet by mouth Daily., Disp: , Rfl: ALPRAZolam (XANAX) 0.5 MG tablet, Take 1 tablet by mouth Daily. (Patient not taking: Reported on 11/09/2025), Disp: , Rfl: baclofen (LIORESAL) 10 MG tablet, Take 1 tablet by mouth 3 (Three) Times a Day., Disp: , Rfl: diazePAM (VALIUM) 5 MG tablet, Take 1 tablet by mouth Daily., Disp: , Rfl: Estradiol (ESTRACE) 0.01 % vaginal cream, Insert 1 g into the vagina 2 (Two) Times a Week., Disp: 42.5 g, Rfl: 3 furosemide (LASIX) 40 MG tablet, Take 1 tablet by mouth Daily., Disp: , Rfl: hydrOXYzine (ATARAX) 50 MG tablet, , Disp: , Rfl: PARoxetine (PAXIL) 40 MG tablet, Take 1 tablet by mouth Every Night. (Patient not taking: Reported on 11/09/2025), Disp: , Rfl: Patient denies the need for medication refills today. OB History 0 Para 0 Term 0 0 AB 0 Living 0 SAB 0 IAB 0 Ectopic 0 Molar 0 Multiple 0 Live Births 0 Past Medical History: Diagnosis Date Acid reflux Anxiety Arthritis Back pain Cancer Cervical dysplasia COPD (chronic obstructive pulmonary disease) Depression Diabetes Fatty liver Fibromyalgia GERD (gastroesophageal reflux disease) Hyperlipidemia Neuropathy On home O2 DEBI (obstructive sleep apnea) Substance abuse Past Surgical History: Procedure Laterality Date CERVICAL CONIZATION x 2 COLONOSCOPY 2018 ENDOSCOPY x 2 LEEP PARATHYROID GLAND SURGERY SINUS SURGERY VAGINAL HYSTERECTOMY 2008 Health Maintenance Topic Date Due LIPID PANEL Never done DIABETIC FOOT EXAM Never done DIABETIC EYE EXAM Never done URINE MICROALBUMIN-CREATININE RATIO (uACR) Never done Hepatitis B (1 of 3 - 19+ 3-dose series) Never done TDAP/TD VACCINES (1 - Tdap) Never done MAMMOGRAM Never done ZOSTER VACCINE (1 of 2) Never done HEPATITIS C SCREENING Never done HEMOGLOBIN A1C Never done Annual Gynecologic Pelvic and Breast Exam 02/07/2024 ANNUAL WELLNESS VISIT 05/27/2025 INFLUENZA VACCINE Never done COLORECTAL CANCER SCREENING 02/25/2028 Pneumococcal Vaccine 50+ Completed The additional following portions of the patient's history were reviewed and updated as appropriate: allergies, current medications, past family history, past medical history, past social history, past surgical history, and problem list. Review of Systems Constitutional: Negative. Gastrointestinal: Positive for constipation. Genitourinary: Negative. Psychiatric/Behavioral: Positive for depressed mood. Negative for suicidal ideas. I have reviewed and agree with the HPI, ROS, and historical information as entered above. Caroline Dickens, ORCHARD HAND Objective BP 128/84 Resp 18 Ht 152.4 cm (60 ) Wt 79.4 kg (175 lb) LMP (LMP Unknown) BMI 34.18 kg/m?? Physical Exam Vitals and nursing note reviewed. Exam conducted with a trouble locater present. Constitutional: Appearance: She is well-developed. HENT: Head: Normocephalic and atraumatic. Neck: Thyroid: No thyroid mass or thyromegaly. Pulmonary: Effort: Pulmonary effort is normal. No retractions. Breath sounds: Wheezing present. Chest: Chest wall: No mass. Breasts: Right: Normal. No mass, nipple discharge, skin change or tenderness. Left: Normal. No mass, nipple discharge, skin change or tenderness. Abdominal: Palpations: Abdomen is soft. Abdomen is not rigid. There is no mass. Tenderness: There is no abdominal tenderness. There is no guarding. Hernia: No hernia is present. There is no hernia in the left inguinal area or right inguinal area. Genitourinary: General: Normal vulva. Exam position: Lithotomy position. Pubic Area: No rash. Labia: Right: No rash, tenderness or lesion. Left: No rash, tenderness or lesion. Urethra: No urethral pain or urethral swelling. Vagina: Normal. No vaginal discharge or lesions. Uterus: Absent. Adnexa: Right: No mass, tenderness or fullness. Left: No mass, tenderness or fullness. Comments: Cervix surgically absent. Vaginal cuff intact. Musculoskeletal: Cervical back: Normal range of motion. No muscular tenderness. Neurological: Mental Status: She is alert and oriented to person, place, and time. Psychiatric: Behavior: Behavior normal. Assessment and Plan Problem List Items Addressed This Visit None Visit Diagnoses Women's annual routine gynecological examination - Primary Relevant Medications furosemide (LASIX) 40 MG tablet DULoxetine (CYMBALTA) 30 MG capsule Estradiol (ESTRACE) 0.01 % vaginal cream Other Relevant Orders LIQUID-BASED PAP SMEAR WITH HPV GENOTYPING IF ASCUS (YARY,COR,MAD) Encounter for gynecological examination without abnormal finding Relevant Medications furosemide (LASIX) 40 MG tablet DULoxetine (CYMBALTA) 30 MG capsule Estradiol (ESTRACE) 0.01 % vaginal cream Screening for colon cancer Relevant Orders Ambulatory Referral For Screening Colonoscopy Encounter for screening mammogram for malignant neoplasm of breast Relevant Orders Mammo Screening Digital Tomosynthesis Bilateral With CAD She has been using vaginal estrogen sporadically. Reinforced use and refilled RX. 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 Reviewed monthly self breast exams. Instructed to call with lumps, pain, or breast discharge. Yearly mammograms ordered. Ordered mammogram today. Colonoscopy recommended. Reviewed [facility] ovarian cancer screening program. Return in about 1 year (around 11/09/2026) for Annual physical. Caroline Herrera APRN 11/09/2025 documented in this encounter Plan of Treatment Upcoming Encounters Date Type Department Care Team (Late st Contact Info) Description 11/11/2026 11:00 AM EST Office Visit [facility] [address] [place] [address] Caroline Herrera APRN [address] [facility] [address] [place] [address] Pending Results Name Type Priority Associated Diagnoses Date /Time LIQUID-BASED PAP SMEAR WITH HPV GENOTYPING IF ASCUS (YARY,COR,MAD) Pathology and Cytology Routine Women's annual routine gynecological examination 11/09/2025 10:01 AM EST Scheduled Orders Name Type Priority Associated Diagnoses Orde r Schedule LIQUID-BASED PAP SMEAR WITH HPV GENOTYPING IF ASCUS (YARY,COR,MAD) Pathology and Cytology Routine Women's annual routine gynecological examination Expected: 11/09/2025 (Approximate), Expires: 11/09/2026 Mammo Screening Digital Tomosynthesis Bilateral With CAD Imaging Routine Encounter for screening mammogram for malignant neoplasm of breast Expected: 11/14/2025, Expires: 11/09/2026 Scheduled Referrals Name Type Priority Associated Diagnoses Order Schedule Ambulatory Referral For Screening Colonoscopy Outpatient Referral Routine Screening for colon cancer Ordered: 11/09/2025 documented as of this encounter Visit Diagnoses Diagnosis Women's annual routine gynecological examination- Primary Encounter for gynecological examination without abnormal finding Screening for colon cancer Special screening for malignant neoplasms, colon Encounter for screening mammogram for malignant neoplasm of breast documented in this encounter Care Teams Systems Accountant Relationship Specialty Start Date End Date Mark Sorensen, JAZMYNEC [address] [place] [address] PCP - General Physician Medical Collector 10/20/25 documented as of this encounter
--- OUTSIDE RECORDS SUMMARY | 2025-11-10 12:19 | XMS_ITS | Encounter Summary ---
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 Not on file Not on file documented as of this encounter Plan of Treatment Upcoming Encounters Date Type Department Care Team (Late Contact Info) Description 11/11/2026 11:00 AM EST Office Visit [facility] O[facility]YN [address] [place] [address] Caroline Herrera, SHIP RIGGER APPRENTICE [address] [address] documented as of this encounter Visit Diagnoses Diagnosis Hormone replacement therapy (HRT) documented in this encounter Care Teams Pelt Grader Relationship Specialty Start Date End Date Mark Sorensen, PAParadiseC [address] [place] [address] PCP - General Physician Grain Sacker 10/20/25 documented as of this encounter
--- OUTSIDE RECORDS SUMMARY | 2025-11-10 12:19 | XMS_ITS | Encounter Summary ---
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 Not on file Not on file documented as of this encounter Miscellaneous Notes * Telephone Encounter - Mary Toribio MA - 04/22/2024 3:21 PM EDT Patient needs to schedule annual exam documented in this encounter Plan of Treatment Upcoming Encounters Date Type Department Care Team (Late st Contact Info) Description 11/11/2026 11:00 AM EST Office Visit [facility] OBGYN [address] [place] [address] Caroline Herrera, DATA WAREHOUSE CONSULTANT [address] [facility] [address] [place] [address] documented as of this encounter Visit Diagnoses Diagnosis Hormone replacement therapy (HRT) documented in this encounter Care Teams Internet Sales Director Relationship Specialty Start Date End Date Mark Sorensen PA-C [address] [place] [address] PCP - General Physician Audit Intern 10/20/25 documented as of this encounter
--- OUTSIDE RECORDS SUMMARY | 2025-11-10 12:19 | XMS_ITS | Encounter Summary ---
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 file Not on file documented as of this encounter Plan of Treatment Upcoming Encounters Date Type Department Care Team (Late st Contact Info) Description 11/11/2026 11:00 AM EST Office Visit [facility] OBGYN [address] [place] [address] Caroline Herrera, PRODUCT BLENDING SUPERVISOR [address] [facility] [address] [place] [address] documented as of this encounter Visit Diagnoses Not on filedocumented in this encounter Care Teams Wet Pour Mixer Relationship Specialty Start Date End Date Mark Sorensen PA-C [address] [place] [address] PCP - General Physician Assistant Scientist 10/20/25 documented as of this encounter
--- OUTSIDE RECORDS SUMMARY | 2025-11-10 12:19 | XMS_ITS | Clinical Summary ---
Author Organization [facility] Address [address] [place] [address] Care Team Providers Care Cfo Controller Name Role Phone Arline Roberts Primary Care [...] 2019 [facility]-Zoster Vaccines (1 of 2) 2019 [id number] Vaccine ( season) 2025 07/25/2024, 10/25/2023, 05/11/2023, Additional history exists [facility]-Influenza Vaccine (#1) 2025 [facility]-Pneumococcal Vaccine: 50+ Years Completed 07/25/2024 HPV Vaccines (No Doses Required) Completed [facility]-HIB Vaccines Aged Out No longer e [...] to complete this topic Insurance Care Teams Cfo Controller Relationship Specialty Start Date End Date Arline Roberts PA [address] [place] [facility] [address] [place] [id number] [facility] - General 04/08/21
--- OUTSIDE RECORDS SUMMARY | 2025-11-10 12:20 | XMS_ITS | Encounter Summary ---
Author Organization [employer] ([place], [place], [place], [place], [place]) Address [address] [place] [address] Care Team Providers Care Teller Name Role Phone Tutu Vance MD Primary Care Provider [phone] Reason for Visit * Reason Onset Date Comments Hospital Follow Up 09/28/2025 Encounter Details Date Type Department Care Team (Late Contact Info) Description 09/28/2025 Telephone [facility] [address] [place] [address] Tutu Vance MD [address] [facility] [address] [place] [address] Hospital Follow Up Social History Tobacco Use Types Packs/Day Years Used Date Smoking Tobacco: Never Assessed Comments No Sex and Gender Information Value Date Recorded Sex Assigned at Not on file Legal Sex Female 4:13 PM CDT Gender Identity Not on file Sexual Orientation Not on file documented as of this encounter Miscellaneous Notes * Telephone Encounter - Francine Meléndez - 09/28/2025 11:58 AM EST Reached out to patient with hospital follow up, left voicemail W POINT ATTACHER documented in this encounter Plan of Treatment Upcoming Encounters Date Type Department Care Team (Late Contact Info) Description 12/11/2025 10:00 AM EST Office Visit [facility] Neurology - [place] [address] [facility] [address] [place] [address] Arline Wilson, SEISMOGRAPH RECORDER [address] [address] documented as of this encounter Visit Diagnoses Not on filedocumented in this encounter Care Teams Teller Relationship Specialty Start Date End Date Tutu Vance MD [address] [place] [address] PCP - General Emergency Medicine 09/28/25 documented as of this encounter
--- OUTSIDE RECORDS SUMMARY | 2025-11-10 12:21 | XMS_ITS | Clinical Summary ---
Author Organization [facility] Address [address] [place] [address] Care Team Providers Care Grinding Wheel Facer Name Role Phone None, Physician Primary Care [...] 136 - 145 mmol/L 12/21/2024 6:13 AM [facility] ([id number]) Comment:Excess protein and/o r lipids can falsely decrease sodium levels (pseudo hyponatremia). Potassium 4.3 3.5 - 5.1 mmol/L 12/21/2024 6:13 AM [facility] ([id number]) Comment:Falsely elevated pot assium can occur in patients with high WBC or platelet counts. Chloride 105 98 - 107 mmol/L 12/21/2024 6:13 AM [facility] ([id number]) Comment:Falsely elevated chl oride levels can be seen in patients taking bromide containing medications. Carbon Dioxide 26 22 - 29 mmol/L 12/21/2024 6:13 AM [facility] ([id number]) Anion Gap 9 5 - 13 mmol/L 12/21/2024 6:13 AM [facility] ([id number]) Comment:Calculation: Na - (C l + CO2) Glucose, Random 75 71 - 99 mg/dL 12/21/2024 6:13 AM [facility] ([id number]) Blood Urea Nitrogen (BUN) 9(L) 10 - 20 mg/dL 12/21/2024 6:13 AM [facility] ([id number]) Creatinine, Blood 0.82 0.55 - 1.02 mg/dL 12/21/2024 6:13 AM [facility] ([id number]) BUN/Creatinine Ratio 11.0 RATIO 12/21/2024 6:13 AM [facility] ([id number]) Estimated GFR (Cr) 84 >60 mL/min/1.7 3m2 12/21/2024 6:13 AM [facility] ([id number]) Comment:eGFR calculated base d on IDMS traceable, enzymatic creatinine method using the CKD-EPI 2020 equation. Calcium 9.1 8.4 - 10.2 mg/dL 12/21/2024 6:13 AM [facility] ([id number]) Blood VENOUS BLOOD SPECIMEN / Unknown Venipuncture / Unknown 12/21/2024 5:28 AM EST 12/21/2024 5:44 AM EST us Claudia Vazquez MD LAB BLOOD ORDERABLES Final Resul t [facility] ([id number]) [address] [place] [address] from Last 3 Months or Most Recently Relevant to Health Maintenance Insurance [employer] MEDICARE REPLACEMENT Member Subscriber Plan / Payer (Ef fective 2024-Present) Name:Coretta Moctezuma Relation to Subscriber:Self Name:Coretta Moctezuma Payer ID:[id number] (NAIC) Type:Medicare Address: [address] [id number] MEDICAID [place] Member Subscriber Plan / Payer (Ef fective 2025-Present) Name:Coretta Moctezuma Relation to Subscriber:Self Name:Coretta Moctezuma Payer ID:[id number] Group ID:Not on file Type:Medicaid Address: [address] [facility] [place] [address] Advance Directives * Full Code (Latest Code Status on File) Date Activated Date Inactivated Comments 12/18/2024 9:41 AM 12/22/2024 5:51 PM Care Teams Grinding Wheel Facer Relationship Specialty Start Date End Date None, Physician PCP - General 12/18/24
--- OUTSIDE RECORDS SUMMARY | 2025-11-10 12:21 | XMS_ITS | Encounter Summary ---
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 on file Not on file documented as of this encounter Plan of Treatment Upcoming Encounters Date Type Department Care Team (Late st Contact Info) Description 11/11/2026 11:00 AM EST Office Visit [facility]BG[facility] [address] [place] [address] Caroline Herrera, CABLE ASSEMBLER [address] [address] documented as of this encounter Visit Diagnoses Not on filedocumented in this encounter Care Teams Agency Sales Representative Relationship Specialty Start Date End Date Mark Sorensen, JAZMYNEC [address] [place] [address] PCP - General Physician Media Marketing Manager 10/20/25 documented as of this encounter
--- OUTSIDE RECORDS SUMMARY | 2025-11-10 12:21 | XMS_ITS | Referral Summary ---
Author Organization [employer] ([place], [place], [place], [place], [place]) Address [address] [place] [address] Care Team Providers Care Chief Librarian Branch Name Role Phone Tutu Vance MD Primary Care Provider [phone] Encounters Date Type Department Care Team Description 09/28/2025 Telephone [facility] [address] [place] [address] Tutu Vance MD Hospital Follow Up 09/24/2025 11:25 PM EDT - 09/27/2025 6:10 PM EST Hospital Encounter [address] Neuro Telemetry Unit 1 [place] [address] Maura Parra MD Hughes, Isaac, PA-C Elsallabi, Osama, MD Brammell, Korey, Discharge Disposition: Short Term Hospital from Last 3 Months Allergies No known active allergies Medications furosemide (LASIX) 40 MG tablet Take 1 tablet (40 mg total) by mouth daily. Active diazePAM (VALIUM) 5 MG tablet Take 1 tablet (5 mg total) by mouth nightly. Max Daily Amount: 5 mg Active busPIRone (BUSPAR) 15 MG tablet Take 1 tablet (15 mg total) by mouth 2 (two) times daily. Active DULoxetine (CYMBALTA) 60 MG capsule Take 1 capsule (60 mg total) by mouth daily. Active fluticasone-um eclidin-vilant er (Trelegy Ellipta) 200-62.5-25 mcg dsdv Inhale 1 puff by mouth daily. Active fluticasone propionate (FLONASE) 50 mcg/actuation nasal spray Administer 2 sprays into each nostril daily as needed for rhinitis. Active estradioL (ESTRACE) 0.01 % (0.1 mg/gram) vaginal cream Insert 2 g into the vagina nightly. Active metFORMIN (GLUCOPHAGE) 500 MG tablet Take 1 tablet (500 mg total) by mouth daily with breakfast. Active montelukast (SINGULAIR) 10 mg tablet Take 1 tablet (10 mg total) by mouth nightly. Active pantoprazole (PROTONIX) 40 MG tablet Take 1 tablet (40 mg total) by mouth daily. Active diclofenac sodium (VOLTAREN) 75 MG EC tablet Take 1 tablet (75 mg total) by mouth 2 (two) times daily as needed (for Pain). Active pravastatin (PRAVACHOL) 40 MG tablet Take 1 tablet (40 mg total) by mouth nightly. Active ipratropium-al buteroL (DUO-NEB) 0.5 mg-3 mg(2.5 mg base)/3 mL nebulizer solution Inhale 3 mLs by nebulization 4 (four) times daily as needed for shortness of breath. Active Missing or Non-Formulary Medication by intrathecal route as directed Pain Pump: use as directed . Active pregabalin (LYRICA) 100 MG capsule Take 1 capsule (100 mg total) by mouth 2 (two) times daily for 30 days. Max Daily Amount: 200 mg 60 capsule 5 10/27/20 25 mirtazapine (REMERON) 15 MG tablet Take 1 tablet (15 mg total) by mouth nightly for 30 days. 30 tablet 5 10/27/20 25 Active Problems Problem Noted Date Diagnosed Date Altered mental status 09/25/2025 Social History Tobacco Use Types Packs/Day Years [...] EST Inhaled Oxygen Concentration - - Weight 81.6 kg (180 lb) 09/27/2025 11:22 AM EST Height 154.9 cm (5' 1 ) 09/27/2025 11:22 AM EST Body Mass Index 34.01 09/27/2025 11:22 AM EST Plan of Treatment Upcoming Encounters Date Type Department Care Team (Late st Contact Info) Description 12/11/2025 10:00 AM EST Office Visit [facility] Neurology - [address] [place] [address] Arline Wilson APRN [address] [place] [address] Medical Devices Implanted Type Area Buyer Liaison Device Identifier Shelf Expiration Date Model / Serial / Lot Pain Mgmt/Stimulator -02/01/2024 Implanted:01/31 (Quantity not on file) Pain Mgmt/Sti mulator Right: Back [employer] [id number] / / Description:Pain management pump Procedures Procedure Name Priority Date/Time Associated Diagnosis Comments VITAMIN D, 25-HYDROXY Routine 09/27/2025 11:50 AM EST AMMONIA Routine 09/27/2025 11:49 AM EST NOVA GLUCOSE POC Routine 09/27/2025 10:5 4 AM EST NOVA GLUCOSE POC Routine 09/27/2025 5:49 AM EST TSH Add-On 09/27/2025 3:11 AM EST VITAMIN B12 Add-On 09/27/2025 3:11 AM EST CBC W/ AUTO DIFF Routine 09/27/2025 3:11 AM EST BASIC METABOLIC PANEL [...] POC Routine 09/25/2025 10:4 0 AM EDT COMPREHENSIVE METABOLIC PANEL Routine 09/25/2025 3:23 AM EDT CBC HEMOGRAM (SJ-BKR) Routine 09/25/2025 3:23 AM EDT FS_MODEL_IP_ECG 12-LEAD STAT 09/25/2025 12:11 AM EDT EKG-SCANNED 09/24/2025 from Last 3 Months Results * Vitamin D, 25-Hydroxy (09/27/2025 11:50 AM EST) Vitamin D 25-Hydroxy 41.2 30 - 80 ng/mL 09/27/2025 12:53 PM EST [facility] Blood Venipuncture / Unknown 09/27/2025 11:50 AM EST 09/27/2025 12:13 PM EST us Reza Thrasher MD LAB BLOOD ORDERABLES Final Result [facility] [address] [phone] * Ammonia (09/27/2025 11:49 AM EST) Pathologist [facility] Ammonia 21 18 - 72 mol/L 09/27/2025 12:27 PM EST [facility] Blood Venipuncture / Unknown 09/27/2025 11:49 AM EST 09/27/2025 12:13 PM EST us Reza Thrasher MD LAB BLOOD ORDERABLES Final Result Performing Organization Address City/[facility]/ZIP Co de Phone Number [facility] [address] [phone] * Glucose, Nova Meter (09/27/2025 10:54 AM EST) Only the most recent of8 resultswithin the time period is included. [facility] POC-GLUCOSE 103 70 - 110 mg/dL 09/27/2025 11:02 AM EST [facility] Comment:In the event of poor peripheral blood flow, venous or arterial blood should be used due to the potential of erroneous results. Equipment Man [id number] 09/27/2025 11:02 AM EST [facility] Blood WHOLE BLOOD / Unknown 09/27/2025 10:54 AM EST 09/27/2025 11:02 AM EST Narrative [facility] - 09/27/2025 11:02 AM EST Notified RN/MD us Cas Andino MD POINT OF CARE TEST ORDERABLES Final Result [facility] [address] [phone] * (ABNORMAL) CBC with Automated Diff (09/27/2025 3:11 AM EST) Only the most recent of2 resultswithin the time period is included. Pathologist [facility] WBC 10.9(H) 4.0 - 10.0 K/ L 09/27/2025 3:52 AM EST [facility] RBC 4.19 3.93 - 5.22 M/ L 09/27/2025 3:52 AM [facility] Hemoglobin 11.4 11.2 - 15.7 GM/DL 09/27/2025 3:52 AM [facility] Hematocrit 36.3 34.1 - 44.9 % 09/27/2025 3:52 AM [facility] MCV 87 79 - 95 fL 09/27/2025 3:52 AM [facility] MCH 27.2 25.6 - 32.2 pg 09/27/2025 3:52 AM [facility] MCHC 31.4(L) 32.2 - 35.5 GM/DL 09/27/2025 3:52 AM [facility] RDW 13.5 11.7 - 14.4 % 09/27/2025 3:52 AM [facility] Platelets 209 140 - 375 K/CU MM 09/27/2025 3:52 AM [facility] MPV 11.8 9.4 - 12.3 fL 09/27/2025 3:52 AM [facility] % Neutros 59 34 - 71 % 09/27/2025 3:52 AM [facility] % Lymphs 25 19 - 52 % 09/27/2025 3:52 AM [facility] % Monos 10 5 - 13 % 09/27/2025 3:52 AM [facility] % Eos 4.5 1.0 - 6.0 % 09/27/2025 3:52 AM [facility] % Baso 1 0 - 1 % 09/27/2025 3:52 AM [facility] NRBC Absolute <0.01 0 - 0.012 K/ul 09/27/2025 3:52 AM [facility] # Neutros 6.40(H) 1.56 - 6.13 K/ L 09/27/2025 3:52 AM [facility] # Lymphs 2.67 1.18 - 3.74 K/ L 09/27/2025 3:52 AM [facility] # Monos 1.09(H) 0.24 - 0.86 K/ L 09/27/2025 3:52 AM [facility] # Eos 0.49(H) 0.04 - 0.36 K/ L 09/27/2025 3:52 AM EST [facility] # Baso 0.07 0.01 - 0.08 K/ L 09/27/2025 3:52 AM EST [facility] % Imm Grans 1.60(H) 0.01 - 0.43 % 09/27/2025 3:52 AM EST [facility] # IG 0.17(H) 0.00 - 0.03 K/uL 09/27/2025 3:52 AM EST [facility] Blood Venipuncture / Unknown 09/27/2025 3:11 AM EST 09/27/2025 3:48 AM EST Narrative [facility] - 09/27/2025 3:52 AM EST When [...] MD LAB BLOOD ORDERABLES Final Re sult [facility] [address] [phone] * (ABNORMAL) TSH (09/27/2025 3:11 AM EST) TSH 6.528(H) 0.350 - 4.940 uIU/mL 09/27/2025 11:43 AM EST [facility] Blood Venipuncture / Unknown 09/27/2025 3:11 AM EST 09/27/2025 3:47 AM EST us Reza Thrasher MD LAB BLOOD ORDERABLES Final Result Performing Organization Address City/[facility]/ZIP Co de Phone Number [facility] [address] [phone] * Vitamin B12 (09/27/2025 3:11 AM EST) Vitamin B12 671 213 - 816 pg/mL 09/27/2025 11:43 AM [facility] Blood Venipuncture / Unknown 09/27/2025 3:11 AM EST 09/27/2025 3:47 AM EST us Reza Thrasher MD LAB BLOOD ORDERABLES Final Result [facility] [address] [phone] * (ABNORMAL) Basic Metabolic Panel (09/27/2025 3:11 AM EST) Only the most recent of2 resultswithin the time period is included. Sodium 141 136 - 145 meq/L 09/27/2025 4:12 AM [facility] Potassium 3.7 3.4 - 5.1 meq/L 09/27/2025 4:12 AM [facility] CO2 26 22 - 29 meq/L 09/27/2025 4:12 AM [facility] Chloride 105 98 - 112 meq/L 09/27/2025 4:12 AM [facility] Glucose 113(H) 74 - 100 mg/dL 09/27/2025 4:12 AM [facility] BUN 13.4 9.8 - 20.1 mg/dL 09/27/2025 4:12 AM [facility] Creatinine 0.66 0.50 - 1.10 mg/dL 09/27/2025 4:12 AM [facility] BUN/Creatinine 20 8 - 20 09/27/2025 4:12 AM [facility] Calcium 8.5 8.4 - 10.2 mg/dL 09/27/2025 4:12 AM [facility] Anion Gap 14(H) 4 - 12 09/27/2025 4:12 AM [facility] eGFR (mL/min/1.73m2) 103 >=60 mL/min/1.7 3m2 09/27/2025 4:12 AM [facility] Comment:ESTIMATED GFR IS NOT ACCURATE CREATININE CLEARANCE IN PREDICTING GLOMERULAR FILTRATION RATE. ESTIMATED GFR IS NOT APPLICABLE FOR DIALYSIS PATIENTS. Osmolality Calc 282.3 mOsm/kg 4:12 AM EST [facility] Blood Venipuncture / Unknown 09/27/2025 3:11 AM EST 09/27/2025 3:47 AM EST us Cas Andino MD LAB BLOOD ORDERABLES Final Re sult [facility] [address] [phone] * (ABNORMAL) CBC - Hemogram (SJ-BKR) (09/25/2025 3:23 AM EDT) WBC 6.8 4.0 - 10.0 K/ L 09/25/2025 4:12 AM EDT [facility] RBC 4.08 3.93 - 5.22 M/ L 09/25/2025 4:12 AM EDT [facility] Hemoglobin 11.1(L) 11.2 - 15.7 GM/DL 09/25/2025 4:12 AM EDT [facility] Hematocrit 34.9 34.1 - 44.9 % 09/25/2025 4:12 AM EDT [facility] MCV 86 79 - 95 fL 09/25/2025 4:12 AM EDT [facility] MCH 27.2 25.6 - 32.2 pg 09/25/2025 4:12 AM EDT [facility] MCHC 31.8(L) 32.2 - 35.5 GM/DL 09/25/2025 4:12 AM EDT [facility] RDW 13.5 11.7 - 14.4 % 09/25/2025 4:12 AM EDT [facility] Platelets 209 140 - 375 K/CU MM 09/25/2025 4:12 AM EDT [facility] MPV 11.8 9.4 - 12.3 fL 09/25/2025 4:12 AM EDT [facility] Blood Venipuncture / Unknown 09/25/2025 3:23 AM EDT 09/25/2025 4:08 AM EDT us Leon Crouch PA-C LAB BLOOD ORDERABLES Final Res ult [facility] 1 [place] [address], [facility] [phone] * (ABNORMAL) Comprehensive Metabolic Panel (09/25/2025 3:23 AM EDT) Sodium 142 136 - 145 meq/L 09/25/2025 4:41 AM EDT [facility] Potassium 3.0(L) 3.4 - 5.1 meq/L 09/25/2025 4:41 AM EDT [facility] Chloride 101 98 - 112 meq/L 09/25/2025 4:41 AM EDT [facility] CO2 27 22 - 29 meq/L 09/25/2025 4:41 AM EDT [facility] Calcium 9.2 8.4 - 10.2 mg/dL 09/25/2025 4:41 AM EDT [facility] Glucose 102(H) 74 - 100 mg/dL 09/25/2025 4:41 AM EDT [facility] BUN 15.8 9.8 - 20.1 mg/dL 09/25/2025 4:41 AM EDT [facility] Creatinine 0.91 0.50 - 1.10 mg/dL 09/25/2025 4:41 AM EDT [facility] BUN/Creatinine 17 8 - 20 09/25/2025 4:41 AM T [facility] eGFR (mL/min/1.73m2) 74 >=60 mL/min/1.7 3m2 09/25/2025 4:41 AM EDT [facility] Comment:ESTIMATED GFR IS NOT ACCURATE CREATININE CLEARANCE IN PREDICTING GLOMERULAR FILTRATION RATE. ESTIMATED GFR IS NOT APPLICABLE FOR DIALYSIS PATIENTS. Albumin 3.0(L) 3.5 - 5.0 g/dL 09/25/2025 4:41 AM EDT [facility] Alkaline Phosphatase 81 40 - 150 U/L 09/25/2025 4:41 AM EDT [facility] ALT 12 <55 U/L 09/25/2025 4:41 AM EDT [facility] AST 27 5 - 34 U/L 09/25/2025 4:41 AM EDT [facility] Total Bilirubin 0.2(L) 0.3 - 1.2 mg/dL 09/25/2025 4:41 AM EDT [facility] Protein, Total 5.7(L) 6.4 - 8.3 g/dL 09/25/2025 4:41 AM EDT [facility] Globulin 2.7 2.5 - 4.1 g/dL 09/25/2025 4:41 AM EDT [facility] Anion Gap 17(H) 4 - 12 09/25/2025 4:41 AM EDT [facility] A/G Ratio 1.1 0.7 - 1.9 09/25/2025 4:41 AM EDT [facility] Osmolality Calc 284.4 mOsm/kg 4:41 AM EDT [facility] Blood Venipuncture / Unknown 09/25/2025 3:23 AM EDT 09/25/2025 4:09 AM EDT us Leon Crouch PA-C LAB BLOOD ORDERABLES Final Res ult [facility] [address] [phone] * ECG 12 lead (09/25/2025 12:11 AM EDT) VENTRICULAR RATE EKG/MIN 71 BPM GE MUSE ATRIAL RATE (MCT) 71 BPM GE MUSE RI Interval 142 ms GE MUSE QRS-INTERVAL (MSEC) 72 ms GE MUSE QT Interval 412 ms GE MUSE QTC Interval 447 ms GE MUSE P [place] 49 degrees GE MUSE R AXIS (MCT) 12 degrees GE MUSE T Wave [place] 41 degrees GE MUSE [place] Diagnosis Normal sinus rhythm Low voltage QRS Cannot rule out Anterior infarct , age undetermined Abnormal ECG No previous ECGs available Confirmed by Constantin Avilez ([id number]) on 10/02/2025 9:53:57 PM GE MUSE 09/25/2025 12:1 1 AM EDT 10/02/2025 9:53 PM EST Leon Crouch PA-C ECG ORDERABLES Final Result GE MUSE * EKG-SCANNED (09/24/2025) Narrative 09/24/2025 Ordered by an unspecified provider. us Default Scanning Provider SCAN ORDERS Final Result from Last 3 Months Insurance [facility] MEDICARE HMO MEDICAID [place] Advance Directives For more information, please contact: [phone] * Full Code (Latest Code Status on File) Date Activated Date Inactivated Comments 09/24/2025 11:03 PM 09/27/2025 7:10 PM Care Teams Chief Librarian Branch Relationship Specialty Start Date End Date Tutu Vance MD [address] [place] [phone] PCP - General Emergency Medicine 09/28/25
--- OUTSIDE RECORDS SUMMARY | 2025-11-10 12:21 | XMS_ITS | Clinical Summary ---
[facility] Address [address] [place] [address] Care Team Providers Care Station Gateman Name Role Phone Mark Sorensen PA-C Primary Care Provider [phone] Allergies Active Allergy Reactions Criticality Noted Date Comments Codeine Nausea Only Low 10/20/2024 Sulfa Antibiotics GI Intolerance Medium 02/05/2023 Medications ProAir HFA 108 (90 Base) MCG/ACT inhaler 1 Active busPIRone (BUSPAR) 10 MG tablet 1 Active fluticasone (FLONASE) 50 MCG/ACT nasal spray 1 Active hydrOXYzine (ATARAX) 50 MG tablet 1 Active pantoprazole (PROTONIX) 40 MG EC tablet 1 Active montelukast (SINGULAIR) 10 MG tablet Take 1 tablet by mouth Every Evening. 1 Active PARoxetine (PAXIL) 40 MG tablet Take 1 tablet by mouth Every Night. 1 Active metFORMIN (GLUCOPHAGE) 500 MG tablet 3 Active Trelegy Ellipta 100-62.5-25 MCG/ACT inhaler 3 Active famotidine (PEPCID) 40 MG tablet 2 Active cetirizine (zyrTEC) 10 MG tablet 3 Active ipratropium-alb uterol (DUO-NEB) 0.5-2.5 mg/3 ml nebulizer 3 Active pregabalin (LYRICA) 300 MG capsule 3 Active pravastatin (PRAVACHOL) 40 MG tablet 3 Active ALPRAZolam (XANAX) 0.5 MG tablet Take 1 tablet by mouth Daily. 5 Active carvedilol (COREG) 6.25 MG tablet Take 1 tablet by mouth 2 (Two) Times a Day. as directed Active zolpidem (AMBIEN) 10 MG tablet Take 1 tablet by mouth Daily. 5 Active baclofen (LIORESAL) 10 MG tablet Take 1 tablet by mouth 3 (Three) Times a Day. Active furosemide (LASIX) 40 MG tablet Take 1 tablet by mouth Daily. Active escitalopram (LEXAPRO) 20 MG tablet Take 1 tablet by mouth Daily. 5 Active DULoxetine (CYMBALTA) 30 MG capsule TAKE 1 CAPSULE BY MOUTH EVERY DAY IN THE MORNING FOR MOOD 5 Active diazePAM (VALIUM) 5 MG tablet Take 1 tablet by mouth Daily. Active Estradiol (ESTRACE) 0.01 % vaginal cream Insert 1 g into the vagina 2 (Two) Times a Week. 42.5 g 3 5 Active Baclofen (LIORESAL) 5 MG tablet Take 1 tablet by mouth Every 12 (Twelve) Hours. 5 11/09/20 25 Discontinue d(*Therapy completed) estradiol (ESTRACE) 0.1 MG/GM vaginal creamIndication s:Vaginal atrophy Insert 2 g into the vagina Daily. 1 each 6 5 11/09/20 25 Discontinue d(Historica l Med - Therapy completed) Active Problems Problem Noted Date Diagnosed Date [...] Encounters Date Type Department Care Team Description 11/09/2025 9:00 AM EST Office Visit [facility] [address] [place] [address] Caroline Herrera, HALF SECTION IRONER Women's annual routine gynecological examination (Primary Dx); Encounter for gynecological examination without abnormal finding; Screening for colon cancer; Encounter for screening mammogram for malignant neoplasm of breast 11/09/2025 Travel from Last 3 Months Family History Medical [...] Industry Job Start Date Job End Date [employer] Not on file Not on file Not on file Last Filed Vital Signs Vital Sign Reading Time Taken Comments Blood Pressure 128/84 11/09/2025 9:11 AM EST Pulse 89 10/20/2024 3:07 PM EST Temperature - - Respiratory Rate 18 11/09/2025 9:11 AM EST Oxygen Saturation 92% 10/20/2024 3:07 PM EST Inhaled Oxygen Concentration - - Weight 79.4 kg (175 lb) 11/09/2025 9:11 AM EST Height 152.4 cm (5') 11/09/2025 9:11 AM EST Body Mass Index 34.18 11/09/2025 9:11 AM EST Plan of Treatment Upcoming Encounters Date Type Department Care Team (Late st Contact Info) Description 11/11/2026 11:00 AM EST Office Visit [facility] [address] [place] [address] Caroline Herrera, HALF SECTION IRONER [address] [facility] [address] [place] [address] [phone] Health Maintenance Due Date Last Done Comments [...] HEMOGLOBIN A1C 07/25/2021 HEPATITIS C SCREENING 07/25/2021 ANNUAL WELLNESS VISIT 05/27/2025 05/27/2024 INFLUENZA VACCINE 06/26/2025 Annual Gynecologic Pelvic and Breast Exam 11/10/2026 11/09/2025, 11/07/2021 COLONOSCOPY 02/25/2028 02/24/2018, 11/26/2017 COLORECTAL CANCER SCREENING 02/25/2028 Pneumococcal Vaccine 50+ Completed 07/25/2024 Insurance [employer] MEDICARE ADVANTAGE [facility] HMO Care Teams Station Gateman Relationship Specialty Start Date End Date Mark Sorensen, PAParadiseC [address] [address] PCP - General Physician Etiologist 10/20/25
--- OUTSIDE RECORDS SUMMARY | 2025-11-10 12:21 | XMS_ITS | Clinical Summary ---
Author Organization [employer] ([place], [place], [place], [place], [place]) Address [address] [place] [address] Care Team Providers Care Party Plan Sales Unit Advisor Name Role Phone Tutu Vance MD Primary Care Provider [phone] Allergies No known active allergies Medications furosemide [...] Date Diagnosed Date Altered mental status 09/25/2025 Encounters Date Type Department Care Team Description 09/28/[address] [phone] Tutu Vance MD Hospital Follow Up 09/24/2025 11:25 PM EDT - 09/27/2025 6:10 PM EST Hospital Encounter [address] Neuro Telemetry Unit [address] [place] [address] Maura Parra MD Hughes, Isaac, PA-C Elsallabi, Osama, MD Brammell, Korey, DO Discharge Disposition: Short Term Hospital from Last 3 Months Social History Tobacco Use Types Packs/Day Years [...] Description 12/11/2025 10:00 AM EST Office Visit [facility] [address] [place] [address] Arline Wilson, HOSTESS HOST [address] [place] [address] Health Maintenance Due Date Last Done Comments CT Colonography 1969 Colonoscopy 1969 Colorectal Cancer Screening 1969 FOBT/FIT 1969 Fit-DNA (Cologuard) 1969 Sigmoidoscopy 1969 Depression Screening (12+) 1981 Tobacco Cessation Counseling and Screening (12+) 1981 HIV Screening 1984 Hepatitis C Screening 1987 DTAP/TDAP/TD VACCINES (1 - Tdap) 1988 Pap Smear 1990 Breast Cancer Screening 2009 Lipid Panel 2014 Shingles Vaccine (Zoster) (1 of 2) 2019 Medicare IPPE (Welcome to Medicare) G0402 11/26/2024 Influenza Vaccine (#1) 2025 COVID-19 VACCINE Completed 07/25/2024, , 05/11/2023, Additional history exists Pneumococcal 50+ years Completed 07/25/2024 Medical Devices Implanted Type Area Mechanical Test Technician Device Identifier Shelf Expiration Date Model / [...] EST CBC W/ AUTO DIFF Routine 09/27/2025 3:1 1 AM EST BASIC METABOLIC PANEL Routine 09/27/2025 [...] Vitamin D, 25-Hydroxy (09/27/2025 11:50 AM EST) [facility] Vitamin D 25-Hydroxy 41.2 30 - 80 ng/mL 09/27/2025 12:53 PM EST [facility] Blood Venipuncture / Unknown 09/27/2025 11:50 AM EST 09/27/2025 12:13 PM EST Reza Thrasher MD LAB BLOOD ORDERABLES Final Result Performing Organization Address City/[facility]/ZIP Co de Phone Number [facility] [address] [phone] * Ammonia (09/27/2025 11:49 AM EST) [facility] Ammonia 21 18 - 72 mol/L 09/27/2025 12:27 PM EST [facility] Blood Venipuncture / Unknown 09/27/2025 11:49 AM EST 09/27/2025 12:13 PM EST Reza Thrasher MD LAB BLOOD ORDERABLES Final Result [facility] [address] [phone] * Glucose, Nova Meter (09/27/2025 10:54 AM EST) Only the most recent of8 resultswithin the time period is included. [facility] POC-GLUCOSE 103 70 - 110 mg/dL 09/27/2025 11:02 AM EST [facility] Comment:In the event of poor peripheral blood flow, venous or arterial blood should be used due to the potential of erroneous results. Director Call [phone] 09/27/2025 11:02 AM [facility] Blood WHOLE BLOOD / Unknown 09/27/2025 10:54 AM EST 09/27/2025 11:02 AM EST Narrative [facility] - 09/27/2025 11:02 AM EST Notified RN/MD Cas Andino MD POINT OF CARE TEST ORDERABLES Final Result [facility] [address] [phone] * (ABNORMAL) CBC with Automated Diff (09/27/2025 3:11 AM EST) Only the most recent of2 resultswithin the time period is included. WBC 10.9(H) 4.0 - 10.0 K/ L 09/27/2025 3:52 AM [facility] RBC 4.19 3.93 - 5.22 M/ L 09/27/2025 3:52 AM [facility] Hemoglobin 11.4 11.2 - 15.7 GM/DL 09/27/2025 3:52 AM [facility] Hematocrit 36.3 34.1 - 44.9 % 09/27/2025 3:52 AM [facility] MCV 87 79 - 95 fL 09/27/2025 3:52 AM [facility] MCH 27.2 25.6 - 32.2 pg 09/27/2025 3:52 AM [facility] MCHC 31.4(L) 32.2 - 35.5 GM/DL 09/27/2025 3:52 AM [facility] RDW 13.5 11.7 - 14.4 % 09/27/2025 3:52 AM [facility] Platelets 209 140 - 375 K/CU MM 09/27/2025 3:52 AM [facility] MPV 11.8 9.4 - 12.3 fL 09/27/2025 3:52 AM [facility] % Neutros 59 34 - 71 % 09/27/2025 3:52 AM [facility] % Lymphs 25 19 - 52 % 09/27/2025 3:52 AM [facility] % Monos 10 5 - 13 % 09/27/2025 3:52 AM [facility] % Eos 4.5 1.0 - 6.0 % 09/27/2025 3:52 AM [facility] % Baso 1 0 - 1 % 09/27/2025 3:52 AM [facility] NRBC Absolute <0.01 0 - 0.012 K/ul 09/27/2025 3:52 AM [facility] # Neutros 6.40(H) 1.56 - 6.13 K/ L 09/27/2025 3:52 AM [facility] # Lymphs 2.67 1.18 - 3.74 K/ L 09/27/2025 3:52 AM [facility] # Monos 1.09(H) 0.24 - 0.86 K/ L 09/27/2025 3:52 AM [facility] # Eos 0.49(H) 0.04 - 0.36 K/ L 09/27/2025 3:52 AM [facility] # Baso 0.07 0.01 - 0.08 K/ L 09/27/2025 3:52 AM [facility] % Imm Grans 1.60(H) 0.01 - 0.43 % 09/27/2025 3:52 AM [facility] # IG 0.17(H) 0.00 - 0.03 K/uL 09/27/2025 3:52 AM [facility] Blood Venipuncture / Unknown 09/27/2025 3:11 AM EST 09/27/2025 3:48 AM [facility] - 09/27/2025 3:52 AM EST When [...] Flag noted Atypical Lymph flag noted us Osama Elsallabi MD LAB BLOOD ORDERABLES Final Re sult [facility] [address] [phone] * (ABNORMAL) TSH (09/27/2025 3:11 AM EST) TSH 6.528(H) 0.350 - 4.940 uIU/mL 09/27/2025 11:43 AM EST [facility] Blood Venipuncture / Unknown 09/27/2025 3:11 AM EST 09/27/2025 3:47 AM EST Reza Thrasher MD LAB BLOOD ORDERABLES Final Result Performing Organization Address City/[facility]/ZIP Co de Phone Number [facility] [address] [phone] * Vitamin B12 (09/27/2025 3:11 AM EST) Vitamin B12 671 213 - 816 pg/mL 09/27/2025 11:43 AM EST [facility] Blood Venipuncture / Unknown 09/27/2025 3:11 AM EST 09/27/2025 3:47 AM EST Reza Thrasher MD LAB BLOOD ORDERABLES Final Result Performing Organization Address City/[facility]/ZIP Co de Phone Number [facility] [address] [phone] * (ABNORMAL) Basic Metabolic Panel (09/27/2025 3:11 AM EST) Only the most recent of2 resultswithin the time period is included. Sodium 141 136 - 145 meq/L 09/27/2025 4:12 AM EST [facility] Potassium 3.7 3.4 - 5.1 meq/L 09/27/2025 4:12 AM EST [facility] CO2 26 22 - 29 meq/L 09/27/2025 4:12 AM [facility] Chloride 105 98 - 112 meq/L 09/27/2025 4:12 AM [facility] Glucose 113(H) 74 - 100 mg/dL 09/27/2025 4:12 AM [facility] BUN 13.4 9.8 - 20.1 mg/dL 09/27/2025 4:12 AM [facility] Creatinine 0.66 0.50 - 1.10 mg/dL 09/27/2025 4:12 AM [facility] BUN/Creatinine 20 8 - 20 09/27/2025 4:12 AM [facility] Calcium 8.5 8.4 - 10.2 mg/dL 09/27/2025 4:12 AM [facility] Anion Gap 14(H) 4 - 12 09/27/2025 4:12 AM [facility] eGFR (mL/min/1.73m2) 103 >=60 mL/min/1.7 3m2 09/27/2025 4:12 AM [facility] Comment:ESTIMATED GFR IS NOT ACCURATE CREATININE CLEARANCE IN PREDICTING GLOMERULAR FILTRATION RATE. ESTIMATED GFR IS NOT APPLICABLE FOR DIALYSIS PATIENTS. Osmolality Calc 282.3 mOsm/kg 4:12 AM [facility] Blood Venipuncture / Unknown 09/27/2025 3:11 AM EST 09/27/2025 3:47 AM EST us Cas Andino MD LAB BLOOD ORDERABLES Final Re sult [facility] [address] [phone] * (ABNORMAL) CBC - Hemogram (SJ-BKR) (09/25/2025 3:23 AM EDT) WBC 6.8 4.0 - 10.0 K/ L 09/25/2025 4:12 AM EDT [facility] RBC 4.08 3.93 - 5.22 M/ L 09/25/2025 4:12 AM EDT [facility] Hemoglobin 11.1(L) 11.2 - 15.7 GM/DL 09/25/2025 4:12 AM EDT [facility] Hematocrit 34.9 34.1 - 44.9 % 09/25/2025 4:12 AM EDT [facility] MCV 86 79 - 95 fL 09/25/2025 4:12 AM EDT [facility] MCH 27.2 25.6 - 32.2 pg 09/25/2025 4:12 AM EDT [facility] MCHC 31.8(L) 32.2 - 35.5 GM/DL 09/25/2025 4:12 AM EDT [facility] RDW 13.5 11.7 - 14.4 % 09/25/2025 4:12 AM EDT [facility] Platelets 209 140 - 375 K/CU MM 09/25/2025 4:12 AM EDT [facility] MPV 11.8 9.4 - 12.3 fL 09/25/2025 4:12 AM EDT [facility] Blood Venipuncture / Unknown 09/25/2025 3:23 AM EDT 09/25/2025 4:08 AM EDT us Leon Crouch PA-C LAB BLOOD ORDERABLES Final Res ult Performing Organization Address City/State/[facility] Co de Phone Number [facility] [address] [phone] * (ABNORMAL) Comprehensive Metabolic Panel (09/25/2025 3:23 AM EDT) Sodium 142 136 - 145 meq/L 09/25/2025 4:41 AM EDT [facility] Potassium 3.0(L) 3.4 - 5.1 meq/L 09/25/2025 4:41 AM EDT [facility] Chloride 101 98 - 112 meq/L 09/25/2025 4:41 AM EDT [facility] CO2 27 22 - 29 meq/L 09/25/2025 4:41 AM EDT [facility] Calcium 9.2 8.4 - 10.2 mg/dL 09/25/2025 4:41 AM EDT [facility] Glucose 102(H) 74 - 100 mg/dL 09/25/2025 4:[address] [facility] BUN 15.8 9.8 - 20.1 mg/dL 09/25/2025 4:[address] [facility] Creatinine 0.91 0.50 - 1.10 mg/dL 09/25/2025 4:[address] [facility] BUN/Creatinine 17 8 - 20 09/25/2025 4:[address] [facility] eGFR (mL/min/1.73m2) 74 >=60 mL/min/1.7 3m2 09/25/2025 4:[address] [facility] Comment:ESTIMATED GFR IS NOT ACCURATE CREATININE CLEARANCE IN PREDICTING GLOMERULAR FILTRATION RATE. ESTIMATED GFR IS NOT APPLICABLE FOR DIALYSIS PATIENTS. Albumin 3.0(L) 3.5 - 5.0 g/dL 09/25/2025 4:[address] [facility] Alkaline Phosphatase 81 40 - 150 U/L 09/25/2025 4:[address] [facility] ALT 12 <55 U/L 09/25/2025 4:[address] [facility] AST 27 5 - 34 U/L 09/25/2025 4:[address] [facility] Total Bilirubin 0.2(L) 0.3 - 1.2 mg/dL 09/25/2025 4:[address] [facility] Protein, Total 5.7(L) 6.4 - 8.3 g/dL 09/25/2025 4:[address] [facility] Globulin 2.7 2.5 - 4.1 g/dL 09/25/2025 4:[address] [facility] Anion Gap 17(H) 4 - 12 09/25/2025 4:[address] [facility] A/G Ratio 1.1 0.7 - 1.9 09/25/2025 4:[address] [facility] Osmolality Calc 284.4 mOsm/kg 4:[address] [facility] Blood Venipuncture / Unknown 09/25/2025 3:23 AM EDT 09/25/2025 4:09 AM EDT us Leon Crouch PA-C LAB BLOOD ORDERABLES Final Res ult [facility] [address] [place], [place] [address] [phone] * ECG 12 lead (09/25/2025 12:11 AM EDT) VENTRICULAR RATE EKG/MIN 71 BPM GE MUSE ATRIAL RATE (MCT) 71 BPM GE MUSE ND Interval 142 ms GE MUSE QRS-INTERVAL (MSEC) 72 ms GE MUSE QT Interval 412 ms GE MUSE QTC Interval 447 ms GE MUSE P Wallace 49 degrees GE MUSE R AXIS (MCT) 12 degrees GE MUSE T Wave Wallace 41 degrees GE MUSE [place] Diagnosis Normal sinus rhythm Low voltage QRS Cannot rule out Anterior infarct , age undetermined Abnormal ECG No previous ECGs available Confirmed by Constantin Avilez ([id number]) on 10/02/2025 9:53:57 PM GE MUSE 09/25/2025 12:1 1 AM EDT 10/02/2025 9:53 PM EST us Leon Crouch PA-C ECG ORDERABLES Final Result Performing Organization Address City/[facility]/ZIP Co de Phone Number DONALD PINO * EKG-SCANNED (09/24/2025) Narrative 09/24/2025 Ordered by an unspecified provider. us Default Scanning Provider SCAN ORDERS Final Result from Last 3 Months Insurance [facility] MEDICARE HMO MEDICAID QMB Advance Directives For more information, please contact: [phone] * Full Code (Latest Code Status on File) Date Activated Date Inactivated Comments 09/24/2025 11:03 PM 09/27/2025 7:10 PM Care Teams Party Plan Sales Unit Advisor Relationship Specialty Start Date End Date Tutu Vance MD [address] [place] [phone] PCP - General Emergency Medicine 09/28/25
--- NOTE | 2025-11-10 12:24 | XR_ITS ---
FINAL REPORT CLINICAL HISTORY: ABNORMALS FINDINGS ON DIAGNOSTIC IMAGING..swallowed a pendant COMPARISON: None FINDINGS: The visualized intestinal gas pattern appears unremarkable without evidence to suggest obstruction. A pain pump obscures portions of the right abdomen. No abnormal radiopacities are seen in the remainder of the abdomen. IMPRESSION: No acute findings, specifically no radiopaque foreign body identified. Reviewed, Interpreted and Dictated by Sylvie Glover MD Transcribed by Gayathri Meyers Authenticated and [facility]
== END 2025-11-10 23:59 | disposition home or self-care (01) ==
PROVIDERS: PCP Emergency Medicine; Visit Provider Nurse Practitioner
DX: S91.301A Unspecified open wound, right foot, initial encounter (principal); R93.89 Abnormal findings on diagnostic imaging of other specified body structures
CPT/HCPCS: 74018; 87070; 87205

== ENCOUNTER 2025-11-13 09:38 | Outpatient (RCR) | payer MEDICARE, MEDICAID, SELFPAY | END 2025-11-13 23:59 | disposition home or self-care (01) | LOC: PT 09:38 | PROVIDERS: PCP Emergency Medicine | DX: L08.9 Local infection of the skin and subcutaneous tissue, unspecified (principal) | CPT/HCPCS: 97162 ==

== ENCOUNTER 2025-11-17 06:54 | Outpatient (RCR) | payer MEDICARE, MEDICAID, SELFPAY | END 2025-11-17 23:59 | disposition home or self-care (01) | LOC: PT.CARL 06:54 | PROVIDERS: PCP Emergency Medicine; Visit Provider Specialist/Technologist Athletic Trainer | DX: M43.16 Spondylolisthesis, lumbar region (principal); M51.379 Other intervertebral disc degeneration, lumbosacral region without mention of lumbar back pain or lower extremity pain | CPT/HCPCS: 97162 ==